=== PATIENT | female | born 1960 | race Caucasian/White ===

== ENCOUNTER 2016-05-19 11:27 | Inpatient (IN) | payer BC, OTHER ==
[2016-05-19 11:43] VITALS: BMI 24.1
--- NOTE | 2016-05-19 12:29 | PDOC ---
History of Present Illness - General History Source: Patient Exam Limitations: No Limitations - History of Present Illness Initial Comments: 05/19/16 14:39 The patient is a 56 year old female presenting with her son, with a significant past medical history of COPD and CHF s/p CABG, who presents to the emergency department with shortness of breath, cough and bilateral ankle edema. She notes that she recently had a CABG. She reports that she has a history of lower extremity swelling and the last time she came to the ED for lower extremity swelling was more severe than her current state. The patient denies chest pain, headache and dizziness. Denies fever, chills, nausea, vomit, diarrhea and constipation. Denies dysuria, frequency, urgency and hematuria. Allergies: Penicillin Past surgical history: CABG Social history: No alcohol, tobacco or drug use reported PMD - Dr. Sandi Mendez Disability Counselor - Dr. Fernández <Aiden Romo - Last Filed: 05/19/16 14:39> <Lottie Trimble - Last Filed: 05/19/16 15:49> - General Chief Complaint: Shortness of Breath Stated Complaint: SOB Time Seen by Provider: 05/19/16 12:10 Past History <Aiden Romo - Last Filed: 05/19/16 14:39> - Past Medical History COPD: Yes - Surgical History Cardiac Surgery: Yes (BYPASS) - Immunization History Immunization Up to Date: No - Psycho/Social/Smoking Cessation Hx Anxiety: No Suicidal Ideation: No Smoking Status: No Smoking History: Former smoker Have you smoked in the past 12 months: No Number of Cigarettes Smoked Daily: 0 Information on smoking cessation initiated: No Hx Alcohol Use: No Drug/Substance Use Hx: No Substance Use Type: Alcohol Hx Substance Use Treatment: No <Lottie Trimble - Last Filed: 05/19/16 15:49> - Past Medical History Allergies/Adverse Reactions: Allergies Allergy/AdvReac Type Severity Reaction Status Date / Time Penicillins Allergy Verified 05/19/16 11:43 Home Medications: Ambulatory Orders Glimepiride [Amaryl -] 1 mg PO DAILY 05/19/16 Review of Systems - Review of Systems Able to Perform ROS?: Yes Comments:: 05/19/16 14:45 GENERAL/CONSTITUTIONAL: No fever or chills. No weakness. HEAD, EYES, EARS, NOSE AND THROAT: No change in vision. No ear pain or discharge. No sore throat. CARDIOVASCULAR: +Shortness of breath. No chest pain RESPIRATORY: +Cough. No wheezing, or hemoptysis. GASTROINTESTINAL: No nausea, vomiting, diarrhea or constipation. GENITOURINARY: No dysuria, frequency, or change in urination. EXTREMITIES: +Bilateral lower extremity swelling. MUSCULOSKELETAL: No joint or muscle swelling or pain. No neck or back pain. SKIN: No rash NEUROLOGIC: No headache, vertigo, loss of consciousness, or change in strength/ sensation. ENDOCRINE: No increased thirst. No abnormal weight change HEMATOLOGIC/LYMPHATIC: No anemia, easy bleeding, or history of blood clots. ALLERGIC/IMMUNOLOGIC: No hives or skin allergy. <Aiden Romo - Last Filed: 05/19/16 14:39> *Physical Exam - Vital Signs Last Vital Signs Temp Pulse Resp BP Pulse Ox 97.6 F 87 18 192/110 100 05/19/16 11:38 05/19/16 11:38 05/19/16 11:38 05/19/16 11:38 05/19/16 11:38 <Aiden Romo - Last Filed: 05/19/16 14:39> - Vital Signs Last Vital Signs Temp Pulse Resp BP Pulse Ox 97.6 F 87 18 192/110 100 05/19/16 11:38 05/19/16 11:38 05/19/16 11:38 05/19/16 11:38 05/19/16 11:38 - Physical Exam Comments: GENERAL: Awake, alert, and fully oriented, in no acute distress HEAD: No signs of trauma EYES: PERRLA, EOMI, sclera anicteric, conjunctiva clear ENT: Auricles normal inspection, hearing grossly normal, nares patent, oropharynx clear without exudates. Moist mucosa NECK: Normal ROM, supple, no lymphadenopathy, JVD, or masses LUNGS: Mild tachypnea. Breath sounds equal, clear to auscultation bilaterally. No wheezes, and no crackles HEART: Regular rate and rhythm, normal S1 and S2, no murmurs, rubs or gallops ABDOMEN: Soft, nontender, normoactive bowel sounds. No guarding, no rebound. No masses EXTREMITIES: Normal range of motion, 2+ pitting edema to feet B/L. No clubbing or cyanosis. No cords, erythema, or tenderness NEUROLOGICAL: Cranial nerves II through XII grossly intact. Normal speech, normal gait SKIN: Warm, Dry, normal turgor, no rashes or lesions noted. <Lottie Trimble - Last Filed: 05/19/16 15:49> ED Treatment Course - LABORATORY CBC & Chemistry Diagram: 05/19/16 12:54 05/19/16 12:54 - ADDITIONAL ORDERS Additional order review: Laboratory Results 05/19/16 12:54 Sodium 140 Potassium 4.2 Chloride 107 Carbon Dioxide 25 Anion Gap 8 BUN 34 H Creatinine 1.9 H D Creat Clearance w eGFR 27.34 Random Glucose 385 H* D Calcium 8.4 L Total Bilirubin 0.5 AST 14 L ALT 27 Alkaline Phosphatase 114 D Creatine Kinase 73 Troponin I 0.04 B-Natriuretic Peptide 79719.26 H Total Protein 5.9 L Albumin 3.1 L 05/19/16 12:54 RBC 3.58 L MCV 86.6 MCHC 32.7 RDW 14.9 D MPV 9.1 Neutrophils % 75.3 D Lymphocytes % 16.8 D Monocytes % 5.4 Eosinophils % 1.7 Basophils % 0.8 - RADIOLOGY Radiograph Interpretation: 05/19/16 14:17 Chest X-Ray Reviewed by: Dr. Jhon Bernal Impression: Large heart, with sternal sutures and clips, congestive changes and bilateral effusions with an element of atelectasis or infiltrate at the left base. Since prior study the right base is better aerated. The left base is have developed. <Aiden Romo - Last Filed: 05/19/16 14:39> - LABORATORY CBC & Chemistry Diagram: 05/19/16 12:54 05/19/16 12:54 <Lottie Trimble - Last Filed: 05/19/16 15:49> Medical Decision Making - Medical Decision Making 05/19/16 14:12 Dr. Sheehan was called regarding the patient at 2:12pm Dr. Sheehan was consulted regarding the patient at 2:14pm [phone] <Aiden Romo - Last Filed: 05/19/16 14:39> - Medical Decision Making Case discussed with Dr. Sheehan. Recommended admission given patient's past history. <Lottie Trimble - Last Filed: 05/19/16 15:49> *DC/Admit/Observation/Transfer - Attestations Scribe Attestion: 05/19/16 14:39 Documentation prepared by Aiden Romo, acting as biomedical engineering aide for Lottie Trimble MD. <Aiden Romo - Last Filed: 05/19/16 14:39> - Discharge Dispostion Admit: Yes <Lottie Trimble - Last Filed: 05/19/16 15:49> Diagnosis at time of Disposition: CHF (congestive heart failure) Qualifiers: Congestive heart failure type: unspecified congestive heart failure type Congestive heart failure chronicity: acute on chronic Qualified Code(s): I50.9 - Heart failure, unspecified - Discharge Dispostion Condition at time of disposition: Stable - Referrals Referrals: Sandi Mendez MD [Primary Care Provider] -
[2016-05-19 13:01] LABS: BASOPHIL 0.8 % (0-2.0); EOSINOPHIL 1.7 % (0-4.5); MCH 28.3 pg (25.7-33.7); MCHC 32.7 g/dl (32.0-36.0); MEAN CELL VOLUME 86.6 fl (80-96); MEAN PLT VOLUME 9.1 fl (7.5-11.1); NEUTROPHILS 75.3 % (42.8-82.8); PLATELET COUNT 212 K/MM3 (134-434); RDW 14.9 % (11.6-15.6); WHITE BLOOD COUNT 10.5 K/mm3 (4.0-10.0)
[2016-05-19 13:29] LABS: ALBUMIN 3.1 g/dl (3.4-5.0); BILIRUBIN,TOTAL 0.5 mg/dL (0.2-1.0); CALCIUM 8.4 mg/dL (8.5-10.1); CREATININE 1.9 mg/dL (0.55-1.02); TOT PROT 5.9 g/dl (6.4-8.2)
[2016-05-19 13:32] LABS: TROPONIN I 0.04 ng/ml (0.00-0.05)
[2016-05-19] MEDS ORDERED: INSULIN REGULAR HUMAN 100 UNITS/ML *VIAL SQ ONE (14:58)
[2016-05-19] MEDS ORDERED: FUROSEMIDE 40 MG/4 ML INJECTABLE VIAL IVPUSH ONE (15:01)
[2016-05-19] MEDS ORDERED: FUROSEMIDE 40 MG/4 ML INJECTABLE VIAL ONE (15:06)
[2016-05-19] MEDS ORDERED: INSULIN REGULAR HUMAN 100 UNITS/ML *VIAL ONE (15:07)
--- NOTE | 2016-05-19 15:39 | HP ---
CHIEF COMPLAINT: PMD - Dr. Sandi Mendez Furniture Removalist - Dr. Fernández HISTORY OF PRESENT ILLNESS: Patient is a 56 year old female with PMHx of COPD and CHF s/p CABG x (4 vessels ) recently who presents to the emergency department with shortness of breath, cough and bilateral ankle edema. Also c/o having cold like symptoms; runny nose , head congestion, and soar throat. Patient states that she cannot take B-Blockers will make her dizzy and will become hypotensive. Denies any chest pain or palpitations but has mild shortness of breath, no fever or chills, no nausea or vomiting. Also states that her sugar is not controlled, and was on Metformin and was discontinued due to causing pulmonary edema. The patient denies chest pain, headache and dizziness. Denies fever, chills, nausea, vomit, diarrhea and constipation. Denies dysuria, frequency, urgency and hematuria. Allergies: Penicillin Past surgical history: CABG Social history: No alcohol, tobacco or drug use reported, id , has adult children Allergies Penicillins Allergy (Verified 05/19/16 11:43) HOME MEDICATIONS: Medication Instructions Recorded Glimepiride [Amaryl -] 1 mg PO DAILY 05/19/16 REVIEW OF SYSTEMS CONSTITUTIONAL: Absent: fever, chills, diaphoresis, generalized weakness, malaise, loss of appetite, weight change HEENT: POsitive: rhinorrhea, nasal congestion, throat pain. Absent: throat swelling, difficulty swallowing, mouth swelling, ear pain, eye pain, visual changes CARDIOVASCULAR: positive :peripheral edema.Absent:, chest pain, syncope, palpitations, irregular heart rate, lightheadedness, RESPIRATORY: positive for cough, shortness of breath, dyspnea with exertion. Absent: orthopnea, wheezing, stridor, hemoptysis GASTROINTESTINAL:Absent: abdominal pain, abdominal distension, nausea, vomiting , diarrhea, constipation, melena, hematochezia GENITOURINARY: Absent: dysuria, frequency, urgency, hesitancy, hematuria, flank pain, genital pain MUSCULOSKELETAL: Absent: myalgia, arthralgia, joint swelling, back pain, neck pain SKIN: Absent: rash, itching, pallor HEMATOLOGIC/IMMUNOLOGIC: Absent: easy bleeding, easy bruising, lymphadenopathy, frequent infections ENDOCRINE:Absent: unexplained weight gain, unexplained weight loss, heat intolerance, cold intolerance NEUROLOGIC: Absent: headache, focal weakness or paresthesias, dizziness, unsteady gait, seizure, mental status changes, bladder or bowel incontinence PSYCHIATRIC: Absent: anxiety, depression, suicidal or homicidal ideation, hallucinations. PHYSICAL EXAMINATION Vital Signs - 24 hr 05/19/16 11:38 Temperature 97.6 F Pulse Rate 87 Respiratory 18 Rate Blood Pressure 192/110 O2 Sat by Pulse 100 Oximetry (%) GENERAL: Awake, alert, and fully oriented, in no acute distress. HEAD: Normal with no signs of trauma. EYES: Pupils equal, round and reactive to light, extraocular movements intact, sclera anicteric, conjunctiva clear. No lid lag. EARS, NOSE, THROAT: Ears normal, nares patent, oropharynx clear without exudates. Moist mucous membranes. NECK: Normal range of motion, supple without lymphadenopathy, JVD, or masses. LUNGS: Breath sounds equal, clear to auscultation bilaterally. No wheezes, and no crackles. No accessory muscle use. HEART: Regular rate and rhythm, normal S1 and S2 , MING 2/6 , rub or gallop. ABDOMEN: Soft, nontender, not distended, normoactive bowel sounds, no guarding, no rebound, no masses. No hepatomegaly or splenomegaly. MUSCULOSKELETAL: Normal range of motion at all joints. No bony deformities or tenderness. No CVA tenderness. EXTREMITIES: 2+ pulses, warm, well-perfused. No calf tenderness. positive edema LE b/l NEUROLOGICAL: Cranial nerves II-XII intact. Normal speech. Normal gait. PSYCHIATRIC: Cooperative. Good eye contact. Appropriate mood and affect. SKIN: Warm, dry, normal turgor, no rashes or lesions noted. Laboratory Results - last 24 hr 05/19/16 05/19/16 12:54 12:54 WBC 10.5 H RBC 3.58 L Hgb 10.1 L D Hct 31.0 L MCV 86.6 MCHC 32.7 RDW 14.9 D Plt Count 212 D MPV 9.1 Neutrophils % 75.3 D Lymphocytes % 16.8 D Monocytes % 5.4 Eosinophils % 1.7 Basophils % 0.8 Sodium 140 Potassium 4.2 Chloride 107 Carbon Dioxide 25 Anion Gap 8 BUN 34 H Creatinine 1.9 H D Creat Clearance w eGFR 27.34 Random Glucose 385 H* D Calcium 8.4 L Total Bilirubin 0.5 AST 14 L ALT 27 Alkaline Phosphatase 114 D Creatine Kinase 73 Troponin I 0.04 B-Natriuretic Peptide 26633.26 H Total Protein 5.9 L Albumin 3.1 L Chest X-Ray Impression: Large heart, with sternal sutures and clips, congestive changes and bilateral effusions with an element of atelectasis or infiltrate at the left base. Since prior study the right base is better aerated. The left base is have developed. ASSESSMENT/PLAN: Patient is a 56 year old female with PMHx of COPD and CHF s/p CABG x (4 vessels ) recently , who presents to the emergency department with shortness of breath, cough and bilateral ankle edema. # Acute Congestive heart failure r/o acs with 4 vessel disease s/p Cabg, will get echo r/o LV dysfunction assess her valvular status and EJF CE q8x2 more set, ekg in am, Lasix 20mg bid IV .Cardiology consult in am . is notified. Is and Os, weigh daily # LE edema on diuretic gently , will check TSH ,FT4. # ARF will monitor closely, on consult. Kidney US # T2DM uncontrolled accu check with sliding scale q4hr with coverage # c/o Sore throat; ordered influenza on her , negative throat exam and ear exam DVT Px:heparin Problem List - Problem (1) CHF (congestive heart failure) Code(s): I50.9 - HEART FAILURE, UNSPECIFIED Qualifiers: Congestive heart failure type: unspecified congestive heart failure type Congestive heart failure chronicity: acute on chronic Qualified Code(s ): I50.9 - Heart failure, unspecified (2) Diabetes mellitus, insulin dependent (IDDM), uncontrolled Code(s): E10.65 - TYPE 1 DIABETES MELLITUS WITH HYPERGLYCEMIA (3) Dyspnea Code(s): R06.00 - DYSPNEA, UNSPECIFIED (4) Acute renal failure Code(s): N17.9 - ACUTE KIDNEY FAILURE, UNSPECIFIED Visit type - Emergency Visit Emergency Visit: Yes ED Registration Date: 05/19/16 Care time: The patient presented to the Emergency Department on the above date and was hospitalized for further evaluation of their emergent condition. - New Patient This patient is new to me today: Yes Date on this admission: 05/19/16 - Critical Care Critical Care patient: No
[2016-05-19] MEDS ORDERED: INSULIN (NOVOLOG) ASPART 100 UNITS/ML 10ML VIAL ONE (18:13)
[2016-05-19] MEDS: INSULIN SLIDING SCALE (NOVOLOG) 1 VIAL SQ SCH ×2 (18:14→21:15)
[2016-05-19] MEDS ORDERED: hydrALAZINE HCL 20 MG/ML VIAL IVPUSH PRN (19:23)
[2016-05-19] MEDS: HEPARIN NA (PORCINE) 5,000 UNITS/ML 1ML VIAL SQ SCH (22:02)
[2016-05-20] MEDS: INSULIN SLIDING SCALE (NOVOLOG) 1 VIAL SQ SCH ×3 (01:00→17:38)
[2016-05-20] MEDS: HEPARIN NA (PORCINE) 5,000 UNITS/ML 1ML VIAL SQ SCH ×2 (06:00→21:19)
[2016-05-20] MEDS: FUROSEMIDE 40 MG/4 ML INJECTABLE VIAL IVPUSH SCH ×2 (06:00→14:45)
[2016-05-20 07:33] LABS: BASOPHIL 1.2 % (0-2.0); EOSINOPHIL 2.2 % (0-4.5); MCH 28.5 pg (25.7-33.7); MCHC 33.2 g/dl (32.0-36.0); MEAN CELL VOLUME 85.8 fl (80-96); MEAN PLT VOLUME 9.2 fl (7.5-11.1); PLATELET COUNT 220 K/MM3 (134-434); RDW 14.9 % (11.6-15.6); WHITE BLOOD COUNT 10.5 K/mm3 (4.0-10.0)
[2016-05-20 07:36] LABS: INR 1.12 (0.82-1.09); PROTHROMBIN TIME (PATIENT) 12.3 SEC (9.98-11.88)
[2016-05-20 08:06] LABS: ALBUMIN 3.1 g/dl (3.4-5.0); CALCIUM 8.4 mg/dL (8.5-10.1); MAGNESIUM 1.6 mg/dL (1.8-2.4)
[2016-05-20 08:14] LABS: BILIRUBIN,TOTAL 0.6 mg/dL (0.2-1.0); CREATININE 1.9 mg/dL (0.55-1.02); PHOSPHOROUS 3.5 mg/dL (2.5-4.9); THYROID STIMULATING HORMONE 2.7 uIU/ml (0.358-3.74); TOT PROT 5.6 g/dl (6.4-8.2); TROPONIN I 0.05 ng/ml (0.00-0.05)
[2016-05-20 08:57] LABS: FREE T4 1.98 ng/dl (0.76-1.46)
--- NOTE | 2016-05-20 09:46 | EKG ---
Test Reason : Blood Pressure : / mmHG Vent. Rate : 086 BPM Atrial Rate : 086 BPM P-R Int : 150 ms QRS Dur : 102 ms QT Int : 414 ms P-R-T Axes : 057 007 144 degrees QTc Int : 495 ms NORMAL SINUS RHYTHM POSSIBLE LEFT ATRIAL ENLARGEMENT INFERIOR INFARCT (CITED ON OR BEFORE 08-FEB-2015) ST ABNORMAL ECG WHEN COMPARED WITH ECG OF 08-FEB-2015 01:08, FUSION COMPLEXES ARE NO LONGER PRESENT T WAVE VARIATION Confirmed by MANDO BOWERS MD ([id number]) on 05/20/2016 9:45:51 AM Referred By: Overread By: MANDO BOWERS MD
--- NOTE | 2016-05-20 09:48 | EKG ---
Test Reason : Blood Pressure : / mmHG Vent. Rate : 084 BPM Atrial Rate : 084 BPM P-R Int : 152 ms QRS Dur : 104 ms QT Int : 418 ms P-R-T Axes : 063 011 143 degrees QTc Int : 493 ms NORMAL SINUS RHYTHM POSSIBLE LEFT ATRIAL ENLARGEMENT LEFT VENTRICULAR HYPERTROPHY INFERIOR INFARCT (CITED ON OR BEFORE 08-FEB-2015) ST ABNORMAL ECG WHEN COMPARED WITH ECG OF 19-MAY-2016 11:44, NO SIGNIFICANT CHANGE WAS FOUND Confirmed by MANDO BOWERS MD ([id number]) on 05/20/2016 9:47:53 AM Referred By: Overread By: MANDO BOWERS MD
--- NOTE | 2016-05-20 09:50 | PN ---
Progress Note (short form) - Note Progress Note: Chief Complaint: Events noted, notes reviewed, dyspnea with increasing bilateral lower extremity edema, denies chest pain History of Present Illness: Seen and examined on telemetry. Full consult dictated Medications: Current Medications Furosemide (Lasix Injection -) 20 mg IVPUSH BID@0600,1400 [facility] Last Admin: 05/20/16 06:00 Dose: 20 mg Heparin Sodium (Porcine) (Heparin -) 5,000 unit SQ TID [facility] Last Admin: 05/20/16 06:00 Dose: 5,000 unit Hydralazine HCl (Apresoline Injection -) 10 mg IVPUSH Q8H PRN PRN Reason: HYPERTENSION Insulin Aspart (Novolog Vial Sliding Scale -) 1 vial SQ ACHS [facility] PRN Reason: Protocol Review of Systems - Review of Systems Constitutional: no symptoms reported Respiratory: denies Cough and Sputum Production Cardiovascular: as noted above Gastrointestinal: denies Nausea, Vomiting, Diarrhea, Constipation or Abdominal Pain Genitourinary: no symptoms reported Musculoskeletal: no symptoms reported Endocrine: no symptoms reported Vital Signs: Last Vital Signs Temp Pulse Resp BP Pulse Ox 98.1 F 87 20 166/98 99 05/20/16 08:05 05/20/16 08:05 05/20/16 08:05 05/20/16 08:05 05/19/16 20:11 Constitutional: No Distress, Calm Neck: Supple Positive JVD Respiratory: Clear to A&P Bilaterally Cardiovascular: S1 S2 Regular Rate Rhythm Grade 2/6 SM S3 Gallop Gastrointestinal: Soft Benign Normal Bowel Sounds Ext: Trace Edema Labs: Troponin, BNP 05/19/16 05/20/16 12:54 05:35 Troponin I 0.04 0.05 B-Natriuretic Peptide 04906.26 H CBC, BMP 05/20/16 05:35 05/20/16 05:35 Hepatic Panel Total Bilirubin 0.6 mg/dL (0.2-1.0) 05/20/16 05:35 AST 16 U/L (15-37) 05/20/16 05:35 ALT 24 U/L (12-78) 05/20/16 05:35 Alkaline Phosphatase 96 U/L (45-117) 05/20/16 05:35 Albumin 3.1 g/dl (3.4-5.0) L 05/20/16 05:35 INR, PTT INR 1.12 (0.82-1.09) 05/20/16 05:35 Assessment/Plan ASSESSMENT: 1. Acute on chronic LV systolic failure, dilated ischemic cardiomyopathy with class III-IV NYHA classification LV failure 2. CAD post CABG angina pectoris 3. MR 4. sternal wound infection 5. HTN, not at goal 6. Insulin-dependent diabetes mellitus 7. Hypercholesterolemia 8. CKD PLAN: 1. Continue IV Lasix 2. Attempt Bystolic with caution, patient has intolerance to Coreg, Lopressor and Toprl XL therapies 3. Ideally recommend the addition of ACEI or ARBS with caution considering the above noted CKD 4. Resume statin therapy 5. Echocardiography to evalaute LV function and size and MV pathology Haresh Fontanez M.D.
[2016-05-20] MEDS ORDERED: NEBIVOLOL 2.5 MG TABLET (FP) PO SCH (10:00)
[2016-05-20] MEDS: VALSARTAN 40 MG TABLET (FP) PO SCH (10:14)
[2016-05-20] MEDS: ASPIRIN COATED 81 MG TABLET.EC PO SCH (10:14)
[2016-05-20] MEDS ORDERED: INSULIN SLIDING SCALE (NOVOLOG) 1 VIAL SQ SCH (11:00)
--- NOTE | 2016-05-20 11:00 | CONS ---
DATE OF CONSULTATION: 05/20/2016 REQUESTING PHYSICIAN: Hospitalist. CHIEF COMPLAINT: Dyspnea, orthopnea, increasing bilateral lower extremity edema. HISTORY OF PRESENT ILLNESS: This 56-year-old female known to our service with known history of coronary artery disease status post coronary artery bypass grafting, angina pectoris, systolic left ventricular dysfunction with chronic class 1-2 [place] [employer] Classification left ventricular failure related to ischemic dilated cardiomyopathy, insulin-dependent diabetes mellitus, hypercholesterolemia, poor compliance with medical followup, who presented to [facility] with increasing dyspnea, which has been progressive over the last several days. Patient in addition reported increasing bilateral lower extremity edema. Dyspnea initially was noted with mild to moderate physical exertion, subsequently was noted with minimal physical activity. Patient reported in addition orthopnea, but denied any paroxysmal nocturnal dyspnea. Patient denied any chest discomfort. Patient reported intermittent bilateral lower extremity edema. Initially, that was noted in the latter part of the day and subsequently it was noted throughout the whole day. Patient admitted poor compliance with medical followup. Patient, in addition, has been on no cardiovascular medications related to prior intolerances. PAST MEDICAL HISTORY: Coronary artery disease, status post coronary artery bypass grafting, angina pectoris, the above noted surgical procedure was complicated by sternal wound infection requiring reintervention, ischemic dilated cardiomyopathy with chronic class 1-2 [place] [employer] Classification left ventricular failure, insulin-dependent diabetes mellitus, hypercholesterolemia, chronic kidney disease. SOCIAL HISTORY: Prior history of tobacco abuse. FAMILY HISTORY: Positive for coronary artery disease. ALLERGIES: To PENICILLIN. MEDICAL THERAPY: Currently includes: 1. Lasix 20 mg IV push twice a day. 2. Subcutaneous heparin 5000 units 3 times a day. 3. Hydralazine 10 mg IV push q.8 hours as needed. 4. Insulin as prescribed. REVIEW OF SYSTEMS: Head and neck: Denies headache, photophobia, blurring of vision. Respiratory: No cough or sputum production. Cardiovascular: As noted above. Gastrointestinal: Denies nausea, vomiting, diarrhea, abdominal discomfort. Genitourinary: No symptoms reported. Musculoskeletal: No symptoms reported. PHYSICAL EXAMINATION: Vital signs: Blood pressure is 166/98 mmHg, pulse rate is 87 beats per minute regular. Head and neck: Pupils are equally reactive to light and accommodation. Extraocular muscles are intact. Anicteric sclerae. Positive JVD. No bruit appreciated. Chest: Diminished breath sounds at the bases bilaterally. Cardiovascular: S1, S2 regular. Grade 2/6 systolic apical murmur. No gallops. Abdomen: Soft, benign. Normoactive bowel sounds. Extremities: Trace edema. Intact distal pulses. No calf tenderness. STUDIES: Electrocardiogram reveals sinus rhythm with poor R-wave progression and ST-T-wave abnormality suggestive of ischemia. Chest x-ray report was noted. CBC revealed a white cell count of 10.5, hemoglobin 9.7, platelet count 220. INR was 1.12. Basic metabolic profile revealed a sodium of 143, potassium 3.5, BUN of 34, creatinine 1.9, estimated GFR of 27.34, glucose 116, hemoglobin A1c 10.2, cholesterol 213, LDL 147, triglyceride 173, HDL 54, TSH 2.70. ASSESSMENT: 1. Clinical presentation is consistent with acute on chronic left ventricular systolic failure in a patient with known history of dilated ischemic cardiomyopathy, class 3-4 [place] [employer] Classification left ventricular failure. 2. Coronary artery disease, status post coronary artery bypass grafting, angina pectoris. 3. Mitral valve disease, mitral valve regurgitation. 4. Sternal wound infection requiring intervention. 5. Hypertensive cardiovascular disease. 6. Insulin-dependent diabetes mellitus. 7. Hypercholesterolemia. 8. Chronic kidney disease. RECOMMENDATION: 1. Continuation of IV Lasix. 2. Attempt Bystolic therapy with caution. Patient has intolerances to COREG, LOPRESSOR, and TOPROL XL therapy administration. 3. Ideally, recommend addition of BO inhibitors or angiotensin receptor blockers with caution considering the above noted chronic kidney disease. 4. Resumption of statin therapy. 5. Echocardiography to evaluate left ventricular size and function and the above noted mitral valve pathology. 6. Patient was strongly counseled importance of compliance to therapy administration and regular followup. Thank you for the kind referral. LUIS EDUARDO BEEBE M.D. [id number] MTDTrent
[2016-05-20 12:12] LABS: TROPONIN I 0.06 ng/ml (0.00-0.05)
--- NOTE | 2016-05-20 16:31 | PN ---
Teaching Attending Note Name of Resident: Tod Anders ATTENDING PHYSICIAN STATEMENT I saw and evaluated the patient. I reviewed the resident's note and discussed the case with the resident. I agree with the resident's findings and plan as documented. SUBJECTIVE: no fever or chills , no abd pain , no palpitations . SOB is better . LE edema is better OBJECTIVE: NAD , AAOx3 CV: RRR , no MRG . minimal JVD Lungs : minimal basilar crackles Ext: trace pitting edema Abd: soft, NT, ND ASSESSMENT AND PLAN: 56 y/o lady with h/o DM , poor compliance , CAD s/p CABG 1 yr ago, S CHF, and COPD who presented with SOB. 1- Acute S CHF : due to not taking lasix at home. and non compliance with meds - responded to 20 of IV lasix. will cont current dose - I&O and daily weight - started on Bystolic with caution - ARB with caution given her enal function ( could be CKD though ) - echo reviewed. 2- DM : uncontrolled. A1c of 10.3. - increase home amaryl to 3 mg daily - needs another agent . will start januvia at dc 3- YVES , vs CKD : likely CKD check urine electrolytes . Feurea monitor renal function 4- HL: LDL above goal of 70 . started statin dispo : HLOC
[2016-05-20] MEDS ORDERED: MAGNESIUM SULF 50% (8.12 MEQ/2 ML-1 GM VIAL) IVPB ONE (17:26)
--- NOTE | 2016-05-20 17:28 | PN ---
Physical Exam: SUBJECTIVE: Patient seen and examined Pt feeling better, no chest pain, palpitation sob on exertion, no more sob at rest C/o restless leg OBJECTIVE: Vital Signs Period Temp Pulse Resp BP Sys/Horowitz Pulse Ox Last 24 Hr 97.8 F-98.2 F 80-87 18-22 138-192/72-100 97-99 GENERAL: The patient is awake, alert, and fully oriented, in no acute distress. HEAD: Normal with no signs of trauma. EYES: PERRL, extraocular movements intact, sclera anicteric, conjunctiva clear. No ptosis. ENT: Ears normal, nares patent, oropharynx clear without exudates, moist mucous membranes. NECK: Trachea midline, full range of motion, supple. LUNGS: Breath sounds equal, clear to auscultation bilaterally with crackle in b/ l bases , no wheezes, , no accessory muscle use. HEART: Regular rate and rhythm, S1, S2 without murmur, rub or gallop. ABDOMEN: Soft, nontender, nondistended, normoactive bowel sounds, no guarding, no rebound, no hepatosplenomegaly, no masses. EXTREMITIES: 2+ pulses, warm, well-perfused. +1 edema in b/l lower ext. NEUROLOGICAL:. Normal speech, gait not observed. PSYCH: Normal mood, normal affect. SKIN: Warm, dry, normal turgor, no rashes or lesions noted Laboratory Results - last 24 hr 05/19/16 05/19/16 05/20/16 18:10 21:46 00:58 WBC RBC Hgb Hct MCV MCHC RDW Plt Count MPV Neutrophils % Lymphocytes % Monocytes % Eosinophils % Basophils % INR Sodium Potassium Chloride Carbon Dioxide Anion Gap BUN Creatinine Creat Clearance w eGFR POC Glucometer [phone] 98 176 Random Glucose Hemoglobin A1c % Calcium Phosphorus Magnesium Total Bilirubin AST ALT Alkaline Phosphatase Creatine Kinase Troponin I Total Protein Albumin Triglycerides Cholesterol Total LDL Cholesterol HDL Cholesterol TSH Free T4 05/20/16 05/20/16 05/20/16 05:35 05:35 05:35 WBC 10.5 H RBC 3.41 L Hgb 9.7 L Hct 29.3 L MCV 85.8 MCHC 33.2 RDW 14.9 Plt Count 220 MPV 9.2 Neutrophils % 68.0 Lymphocytes % 23.3 D Monocytes % 5.3 Eosinophils % 2.2 Basophils % 1.2 INR 1.12 Sodium 143 Potassium 3.5 Chloride 106 Carbon Dioxide 26 Anion Gap 11 BUN 34 H Creatinine 1.9 H Creat Clearance w eGFR 27.34 POC Glucometer Random Glucose 116 H D Hemoglobin A1c % Calcium 8.4 L Phosphorus 3.5 Magnesium 1.6 L D Total Bilirubin 0.6 AST 16 ALT 24 Alkaline Phosphatase 96 Creatine Kinase 102 Troponin I 0.05 Total Protein 5.6 L Albumin 3.1 L Triglycerides 173 H D Cholesterol 213 H D Total LDL Cholesterol 147 H HDL Cholesterol 54 TSH 2.70 D Free T4 1.98 H 05/20/16 05/20/16 05/20/16 05:35 05:35 05:51 WBC RBC Hgb Hct MCV MCHC RDW Plt Count MPV Neutrophils % Lymphocytes % Monocytes % Eosinophils % Basophils % INR Sodium Potassium Chloride Carbon Dioxide Anion Gap BUN Creatinine Creat Clearance w eGFR POC Glucometer 127 Random Glucose Hemoglobin A1c % 10.2 H D Calcium Phosphorus Magnesium Total Bilirubin AST ALT Alkaline Phosphatase Creatine Kinase Troponin I Total Protein Albumin Triglycerides Cholesterol Total LDL Cholesterol HDL Cholesterol TSH Free T4 Cancelled 05/20/16 05/20/16 05/20/16 11:42 11:42 15:59 WBC RBC Hgb Hct MCV MCHC RDW Plt Count MPV Neutrophils % Lymphocytes % Monocytes % Eosinophils % Basophils % INR Sodium Potassium Chloride Carbon Dioxide Anion Gap BUN Creatinine Creat Clearance w eGFR POC Glucometer 227 296 Random Glucose Hemoglobin A1c % Calcium Phosphorus Magnesium Total Bilirubin AST ALT Alkaline Phosphatase Creatine Kinase 106 Troponin I 0.06 H Total Protein Albumin Triglycerides Cholesterol Total LDL Cholesterol HDL Cholesterol TSH Free T4 Active Medications Generic Name Dose Route Start Last Admin Trade Name Freq PRN Reason Stop Dose Admin Aspirin 81 mg 05/20/16 10:00 05/20/16 10:14 Ecotrin - PO 81 mg DAILY [facility] Administration Furosemide 20 mg 05/20/16 06:00 05/20/16 14:45 Lasix Injection - IVPUSH 20 mg BID@0600,1400 [facility] Administration Glimepiride 3 mg 05/21/16 07:00 Amaryl - PO DAILY@0700 [facility] Insulin Aspart 1 vial 05/20/16 16:30 Novolog Vial Sliding Scale - SQ TIDAC [facility] Protocol Magnesium Sulfate 2 gm 05/20/16 17:26 Magnesium Sulfate IVPB 05/20/16 17:27 ONCE ONE Nebivolol 2.5 mg 05/20/16 10:00 05/20/16 11:44 Bystolic - PO 2.5 mg DAILY [facility] Administration Rosuvastatin Calcium 20 mg 05/20/16 22:00 Crestor - PO HS [facility] Valsartan 40 mg 05/20/16 10:00 05/20/16 10:14 Diovan - PO 40 mg DAILY [facility] Administration CBC, BMP 05/20/16 05:35 05/20/16 05:35 Laboratory Tests 05/20/16 05/20/16 05/20/16 05:35 05:35 11:42 INR 1.12 Calcium 8.4 L Phosphorus 3.5 Magnesium 1.6 L D Troponin I 0.06 H Albumin 3.1 L Total LDL Cholesterol 147 H HDL Cholesterol 54 TSH 2.70 D Free T4 1.98 H 05/20/16 05:35 Hemoglobin A1c % 10.2 H D CXR: Since the prior study of 02/09/2015, again is a large heart with sternal sutures and clips, congestive changes and bilateral effusions with an element of atelectasis or infiltrate at the left base. Since the prior study the right base is better aerated. The left base is have developed. 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 manager Daily weight accurate Intake and output Acute renal failure rt CHF Creatinine baseline 1 today Cr was 1.9 US renal pending Renal consult Urine electrolytes, Na, Cr, Urea Uncontrolled diabetes HCG 10.2 increased Glimeperide to 3mg PO qd Will need to add JAnuvia on discharge Unable to use metformin rt CHF, YVES, prior adverse h/o with metformin BGM Novolg sliding scale Restless leg Iron studies in am FEN Fluid : none Electrolytes: repeat chemistries in am Nutrition: diabetic diet DVT: Heparin sq Visit type - Emergency Visit Emergency Visit: Yes ED Registration Date: 05/19/16 Care time: The patient presented to the Emergency Department on the above date and was hospitalized for further evaluation of their emergent condition. - New Patient This patient is new to me today: Yes Date on this admission: 05/20/16 - Critical Care Critical Care patient: No
--- NOTE | 2016-05-20 18:19 | CONSULT ---
Consult Consult Specialty:: Nephrology Reason for Consultation:: YVES - History of Present Illness Chief Complaint: shortness of breath History of Present Illness: Pt is a 56 year old female with pmhx of CAD, DM, CHF, and COPD who presents to the ER with shortness of breath that has been getting worse over the last few weeks. She denies chest pain or palpitations. She was found to have elevated creatinine and I was called to evaluate her. She denies history of CKD. She denies dysuria or hematuria. She denies nsaid use. She does not take any diuretics. She admits that she has poor outpt follow up. 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 Home Medications - Allergies Allergies/Adverse Reactions: Allergies Allergy/AdvReac Type Severity Reaction Status Date / Time Penicillins Allergy Verified 05/19/16 11:43 - Home Medications Home Medications: Ambulatory Orders Glimepiride [Amaryl -] 1 mg PO DAILY 05/19/16 Family Disease History - Family Disease History Family Disease History: CA: Mother (colon cancer), Other: Father (copd), Sister (healthy and living), Son (healthy and living), Daughter (healthy and living) Review of Systems - Review of Systems Constitutional: reports: No Symptoms Eyes: reports: No Symptoms HENT: reports: No Symptoms Neck: reports: No Symptoms Cardiovascular: reports: Edema, Shortness of Breath Respiratory: reports: SOB, SOB on Exertion Gastrointestinal: reports: No Symptoms Genitourinary: reports: No Symptoms Musculoskeletal: reports: No Symptoms Integumentary: reports: No Symptoms Neurological: reports: No Symptoms Endocrine: reports: No Symptoms Hematology/Lymphatic: reports: No Symptoms Psychiatric: reports: No Symptoms Physical Exam Vital Signs: Vital Signs Temperature 97.9 F 05/20/16 16:00 Pulse Rate 82 05/20/16 16:00 Respiratory Rate 22 05/20/16 16:00 Blood Pressure 172/79 05/20/16 16:00 O2 Sat by Pulse Oximetry (%) 98 05/20/16 08:00 Constitutional: Yes: Calm Eyes: Yes: Conjunctiva Clear HENT: Yes: Atraumatic Cardiovascular: Yes: Murmur, S1, S2 Respiratory: Yes: CTA Bilaterally Gastrointestinal: Yes: Soft Renal/: Yes: WNL Musculoskeletal: Yes: WNL Edema: Yes Edema: LLE: Trace, RLE: Trace Neurological: Yes: Oriented Psychiatric: Yes: Oriented Labs: CBC, BMP 05/20/16 05:35 05/20/16 05:35 Laboratory Tests 02/11/15 02/12/15 05/19/16 08:00 05:00 12:54 WBC Hgb 10.1 L D Sodium Potassium Chloride Carbon Dioxide Anion Gap BUN Creatinine 1.2 1.1 Hemoglobin A1c % 05/19/16 05/20/16 05/20/16 12:54 05:35 05:35 WBC 10.5 H Hgb 9.7 L Sodium 143 Potassium 3.5 Chloride 106 Carbon Dioxide 26 Anion Gap 11 BUN 34 H Creatinine 1.9 H D 1.9 H Hemoglobin A1c % 05/20/16 05:35 WBC Hgb Sodium Potassium Chloride Carbon Dioxide Anion Gap BUN Creatinine Hemoglobin A1c % 10.2 H D Imaging - Results Chest X-ray: Report Reviewed (congestive changes) Problem List - Problems (1) Acute renal failure Code(s): N17.9 - ACUTE KIDNEY FAILURE, UNSPECIFIED (2) CHF (congestive heart failure) Code(s): I50.9 - HEART FAILURE, UNSPECIFIED Qualifiers: Congestive heart failure type: unspecified congestive heart failure type Congestive heart failure chronicity: acute on chronic Qualified Code(s ): I50.9 - Heart failure, unspecified (3) COPD exacerbation Code(s): J44.1 - CHRONIC OBSTRUCTIVE PULMONARY DISEASE W (ACUTE) EXACERBATION (4) Diabetes mellitus, insulin dependent (IDDM), uncontrolled Code(s): E10.65 - TYPE 1 DIABETES MELLITUS WITH HYPERGLYCEMIA (5) Dyspnea Code(s): R06.00 - DYSPNEA, UNSPECIFIED Assessment/Plan Current Medications Generic Name Dose Route Start Last Admin Trade Name Freq PRN Reason Stop Dose Admin Aspirin 81 mg 05/20/16 10:00 05/20/16 10:14 Ecotrin - PO 81 mg DAILY [facility] Administration Furosemide 20 mg 05/20/16 06:00 05/20/16 14:45 Lasix Injection - IVPUSH 20 mg BID@0600,1400 [facility] Administration Glimepiride 3 mg 05/21/16 07:00 Amaryl - PO DAILY@0700 [facility] Heparin Sodium (Porcine) 5,000 unit 05/20/16 22:00 Heparin - SQ BID [facility] Insulin Aspart 1 vial 05/20/16 16:30 05/20/16 17:38 Novolog Vial Sliding Scale - SQ 6 units TIDAC [facility] Administration Protocol Nebivolol 2.5 mg 05/20/16 10:00 05/20/16 11:44 Bystolic - PO 2.5 mg DAILY [facility] Administration Rosuvastatin Calcium 20 mg 05/20/16 22:00 Crestor - PO HS [facility] Valsartan 40 mg 05/20/16 10:00 05/20/16 10:14 Diovan - PO 40 mg DAILY [facility] Administration Impression 1. YVES 2. CHF acute systolic 3. DM 4. HTN 5. 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
[2016-05-20] MEDS: ROSUVASTATIN CA 20 MG TABLET (FP) PO SCH (21:19)
[2016-05-20 22:54] LABS: URINE APPEARANCE CLEAR; URINE BILIRUBIN NEGATIVE (NEGATIVE); URINE COLOR STRAW; URINE GLUCOSE (UA) 2+ (NEGATIVE); URINE KETONE NEGATIVE (NEGATIVE); URINE LEUK ESTERASE NEGATIVE (NEGATIVE); URINE NITRITE NEGATIVE (NEGATIVE); URINE UROBILINOGEN NEGATIVE E.U./dl (0.2-1.0)
[2016-05-20 23:00] LABS: URINE BLOOD 1+ (NEGATIVE); URINE PROTEIN 2+ (NEGATIVE)
[2016-05-20 23:02] LABS: URINE HYALINE CAST 3 /lpf; URINE MUCUS RARE; URINE RBC 6 /hpf (0-3); URINE WBC 7 /hpf (3-5)
[2016-05-20 23:21] LABS: URINE CREATININE 45.3 mg/dL
[2016-05-21] MEDS ORDERED: ACETAMINOPHEN 325 MG TABLET (FP) PO PRN (02:09)
[2016-05-21] MEDS: FUROSEMIDE 40 MG/4 ML INJECTABLE VIAL IVPUSH SCH (06:10)
[2016-05-21] MEDS: GLIMEPIRIDE 2 MG TABLET (FP) PO SCH (06:10)
[2016-05-21] MEDS: INSULIN SLIDING SCALE (NOVOLOG) 1 VIAL SQ SCH ×3 (06:11→17:00)
[2016-05-21 07:27] LABS: EOSINOPHIL 2.5 % (0-4.5); MCH 28.5 pg (25.7-33.7); MCHC 33.4 g/dl (32.0-36.0); MEAN CELL VOLUME 85.4 fl (80-96); NEUTROPHILS 67.4 % (42.8-82.8); PLATELET COUNT 211 K/MM3 (134-434); RDW 14.8 % (11.6-15.6); WHITE BLOOD COUNT 9.6 K/mm3 (4.0-10.0)
--- NOTE | 2016-05-21 08:19 | PN ---
Physical Exam: SUBJECTIVE: Patient seen and examined Pt is feeling weak today Did not sleep well last night Complained about continuous movement of her leg and sensation to walk and run No sob, no chest pain, no palpitation, no n/v. OBJECTIVE: Vital Signs Period Temp Pulse Resp BP Sys/Horowitz Pulse Ox Last 24 Hr 97.8 F-97.9 F 64-87 20-22 148-192/79-100 98 GENERAL: The patient is awake, alert, and fully oriented, in no acute distress. HEAD: Normal with no signs of trauma. EYES: PERRL, extraocular movements intact, sclera anicteric, conjunctiva clear. No ptosis. ENT: Ears normal, nares patent, oropharynx clear without exudates, moist mucous membranes. NECK: Trachea midline, full range of motion, supple. LUNGS: Breath sounds equal, clear to auscultation bilaterally with crackle in b/ l bases , no wheezes, , no accessory muscle use. HEART: Regular rate and rhythm, S1, S2 without murmur, rub or gallop. ABDOMEN: Soft, nontender, nondistended, normoactive bowel sounds, no guarding, no rebound, no hepatosplenomegaly, no masses. EXTREMITIES: 2+ pulses, warm, well-perfused. +1 edema in b/l lower ext. NEUROLOGICAL:. Normal speech, gait not observed. PSYCH: Normal mood, normal affect. SKIN: Warm, dry, normal turgor, no rashes or lesions noted Laboratory Results - last 24 hr 05/20/16 05/20/16 05/20/16 05:35 05:35 05:35 WBC RBC Hgb Hct MCV MCHC RDW Plt Count MPV Neutrophils % Lymphocytes % Monocytes % Eosinophils % Basophils % Sodium 143 Potassium 3.5 Chloride 106 Carbon Dioxide 26 Anion Gap 11 BUN 34 H Creatinine 1.9 H Creat Clearance w eGFR 27.34 POC Glucometer Random Glucose 116 H D Hemoglobin A1c % 10.2 H D Calcium 8.4 L Phosphorus 3.5 Magnesium 1.6 L D Total Bilirubin 0.6 AST 16 ALT 24 Alkaline Phosphatase 96 Creatine Kinase 102 Troponin I 0.05 Total Protein 5.6 L Albumin 3.1 L Triglycerides 173 H D Cholesterol 213 H D Total LDL Cholesterol 147 H HDL Cholesterol 54 TSH 2.70 D Free T4 1.98 H Cancelled Urine Color Urine Appearance Urine pH Ur Specific [place] Urine Protein Urine Glucose (UA) Urine Ketones Urine Blood Urine Nitrite Urine Bilirubin Urine Urobilinogen Ur Leukocyte Esterase Urine RBC Urine WBC Ur Epithelial Cells Hyaline Casts Urine Mucus U Random Total Protein Ur Random Sodium Ur Random Potassium Ur Random Chloride Ur Random Urea Nitrogn Urine Creatinine Protein/Creatinin Ratio 05/20/16 05/20/16 05/20/16 11:42 11:42 15:59 WBC RBC Hgb Hct MCV MCHC RDW Plt Count MPV Neutrophils % Lymphocytes % Monocytes % Eosinophils % Basophils % Sodium Potassium Chloride Carbon Dioxide Anion Gap BUN Creatinine Creat Clearance w eGFR POC Glucometer 227 296 Random Glucose Hemoglobin A1c % Calcium Phosphorus Magnesium Total Bilirubin AST ALT Alkaline Phosphatase Creatine Kinase 106 Troponin I 0.06 H Total Protein Albumin Triglycerides Cholesterol Total LDL Cholesterol HDL Cholesterol TSH Free T4 Urine Color Urine Appearance Urine pH Ur Specific [place] Urine Protein Urine Glucose (UA) Urine Ketones Urine Blood Urine Nitrite Urine Bilirubin Urine Urobilinogen Ur Leukocyte Esterase Urine RBC Urine WBC Ur Epithelial Cells Hyaline Casts Urine Mucus U Random Total Protein Ur Random Sodium Ur Random Potassium Ur Random Chloride Ur Random Urea Nitrogn Urine Creatinine Protein/Creatinin Ratio 05/20/16 05/20/16 05/20/16 21:30 21:30 21:30 WBC RBC Hgb Hct MCV MCHC RDW Plt Count MPV Neutrophils % Lymphocytes % Monocytes % Eosinophils % Basophils % Sodium Potassium Chloride Carbon Dioxide Anion Gap BUN Creatinine Creat Clearance w eGFR POC Glucometer Random Glucose Hemoglobin A1c % Calcium Phosphorus Magnesium Total Bilirubin AST ALT Alkaline Phosphatase Creatine Kinase Troponin I Total Protein Albumin Triglycerides Cholesterol Total LDL Cholesterol HDL Cholesterol TSH Free T4 Urine Color Urine Appearance Urine pH Ur Specific [place] Urine Protein Urine Glucose (UA) Urine Ketones Urine Blood Urine Nitrite Urine Bilirubin Urine Urobilinogen Ur Leukocyte Esterase Urine RBC Urine WBC Ur Epithelial Cells Hyaline Casts Urine Mucus U Random Total Protein 205 H Ur Random Sodium 97 Ur Random Potassium Ur Random Chloride Ur Random Urea Nitrogn 235 Urine Creatinine 45.3 Protein/Creatinin Ratio 4.52 05/20/16 05/20/16 05/21/16 21:30 21:30 05:35 WBC 9.6 RBC 3.29 L Hgb 9.4 L Hct 28.1 L MCV 85.4 MCHC 33.4 RDW 14.8 Plt Count 211 MPV 9.0 Neutrophils % 67.4 Lymphocytes % 22.2 Monocytes % 6.9 Eosinophils % 2.5 Basophils % 1.0 Sodium Potassium Chloride Carbon Dioxide Anion Gap BUN Creatinine Creat Clearance w eGFR POC Glucometer Random Glucose Hemoglobin A1c % Calcium Phosphorus Magnesium Total Bilirubin AST ALT Alkaline Phosphatase Creatine Kinase Troponin I Total Protein Albumin Triglycerides Cholesterol Total LDL Cholesterol HDL Cholesterol TSH Free T4 Urine Color Straw Urine Appearance Clear Urine pH 5.0 Ur Specific [place] 1.011 Urine Protein 2+ H Urine Glucose (UA) 2+ H Urine Ketones Negative Urine Blood 1+ H Urine Nitrite Negative Urine Bilirubin Negative Urine Urobilinogen Negative Ur Leukocyte Esterase Negative Urine RBC 6 Urine WBC 7 Ur Epithelial Cells Rare Hyaline Casts 3 Urine Mucus Rare U Random Total Protein Ur Random Sodium 98 Ur Random Potassium 21.3 Ur Random Chloride 109 Ur Random Urea Nitrogn Urine Creatinine Protein/Creatinin Ratio 05/21/16 05:55 WBC RBC Hgb Hct MCV MCHC RDW Plt Count MPV Neutrophils % Lymphocytes % Monocytes % Eosinophils % Basophils % Sodium Potassium Chloride Carbon Dioxide Anion Gap BUN Creatinine Creat Clearance w eGFR POC Glucometer 237 Random Glucose Hemoglobin A1c % Calcium Phosphorus Magnesium Total Bilirubin AST ALT Alkaline Phosphatase Creatine Kinase Troponin I Total Protein Albumin Triglycerides Cholesterol Total LDL Cholesterol HDL Cholesterol TSH Free T4 Urine Color Urine Appearance Urine pH Ur Specific [place] Urine Protein Urine Glucose (UA) Urine Ketones Urine Blood Urine Nitrite Urine Bilirubin Urine Urobilinogen Ur Leukocyte Esterase Urine RBC Urine WBC Ur Epithelial Cells Hyaline Casts Urine Mucus U Random Total Protein Ur Random Sodium Ur Random Potassium Ur Random Chloride Ur Random Urea Nitrogn Urine Creatinine Protein/Creatinin Ratio Active Medications Generic Name Dose Route Start Last Admin Trade Name Freq PRN Reason Stop Dose Admin Acetaminophen 650 mg 05/21/16 02:09 05/21/16 02:20 Tylenol - PO 650 mg Q6H PRN Administration FEVER OR PAIN Aspirin 81 mg 05/20/16 10:00 05/20/16 10:14 Ecotrin - PO 81 mg DAILY [facility] Administration Furosemide 20 mg 05/20/16 06:00 05/21/16 06:10 Lasix Injection - IVPUSH 20 mg BID@0600,1400 [facility] Administration Glimepiride 3 mg 05/21/16 07:00 05/21/16 06:10 Amaryl - PO 3 mg DAILY@0700 [facility] Administration Heparin Sodium (Porcine) 5,000 unit 05/20/16 22:00 05/20/16 21:19 Heparin - SQ 5,000 unit BID [facility] Administration Insulin Aspart 1 vial 05/20/16 16:30 05/21/16 06:11 Novolog Vial Sliding Scale - SQ 4 units TIDAC [facility] Administration Protocol Nebivolol 2.5 mg 05/20/16 10:00 05/20/16 11:44 Bystolic - PO 2.5 mg DAILY [facility] Administration Rosuvastatin Calcium 20 mg 05/20/16 22:00 05/20/16 21:19 Crestor - PO Not Given HS [facility] Valsartan 40 mg 05/20/16 10:00 05/20/16 10:14 Diovan - PO 40 mg DAILY [facility] Administration CBC, BMP 05/21/16 05:35 Laboratory Tests 05/20/16 05/20/16 05/20/16 21:30 21:30 21:30 Urine Protein Urine Glucose (UA) Urine Blood Urine Nitrite Ur Leukocyte Esterase Urine WBC Ur Random Sodium 97 Ur Random Potassium Ur Random Chloride Ur Random Urea Nitrogn 235 Urine Creatinine 45.3 Protein/Creatinin Ratio 4.52 05/20/16 05/20/16 21:30 21:30 Urine Protein 2+ H Urine Glucose (UA) 2+ H Urine Blood 1+ H Urine Nitrite Negative Ur Leukocyte Esterase Negative Urine WBC 7 Ur Random Sodium 98 Ur Random Potassium 21.3 Ur Random Chloride 109 Ur Random Urea Nitrogn Urine Creatinine Protein/Creatinin Ratio CXR: Since the prior study of 02/09/2015, again is a large heart with sternal sutures and clips, congestive changes and bilateral effusions with an element of atelectasis or infiltrate at the left base. Since the prior study the right base is better aerated. The left base is have developed. 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 Worry about effects of Diuretics Uncontrolled diabetes HCG 10.2 increased Glimeperide to 3mg PO qd Will need to add JAnuvia on discharge Unable to use metformin rt CHF, YVES, prior adverse h/o with metformin BGM Novolg sliding scale Hyperlipedemia LDL 147 On crestor 20mg qhs Normocytic Anemia iron studies pending Restless leg Iron studies in am FEN Fluid : none Electrolytes: repeat chemistries in am Nutrition: diabetic diet DVT: Heparin sq Disposition: Possible DC tomorrow if renal function improves and CHF continue to improve. Pending US renal and bladder. Visit type - Emergency Visit Emergency Visit: Yes ED Registration Date: 05/19/16 Care time: The patient presented to the Emergency Department on the above date and was hospitalized for further evaluation of their emergent condition. - New Patient This patient is new to me today: No - Critical Care Critical Care patient: No
[2016-05-21 08:29] LABS: CALCIUM 8.6 mg/dL (8.5-10.1); MAGNESIUM 2.2 mg/dL (1.8-2.4)
[2016-05-21 08:31] LABS: CREATININE 2.3 mg/dL (0.55-1.02); PHOSPHOROUS 4.4 mg/dL (2.5-4.9)
[2016-05-21 09:36] LABS: FERRITIN 25.66 ng/ml (6.9-282.5)
[2016-05-21] MEDS ORDERED: PT OWN MED DRAWER 7, Y5N ONE ×3 (09:48→21:18)
[2016-05-21] MEDS: VALSARTAN 40 MG TABLET (FP) PO SCH (09:50)
[2016-05-21] MEDS: HEPARIN NA (PORCINE) 5,000 UNITS/ML 1ML VIAL SQ SCH ×2 (09:50→21:31)
[2016-05-21] MEDS: ASPIRIN COATED 81 MG TABLET.EC PO SCH (09:50)
--- NOTE | 2016-05-21 11:19 | PN ---
Progress Note, Physician History of Present Illness: Dyspnea and LE edema resolving. - Current Medication List Current Medications: Active Medications Acetaminophen (Tylenol -) 650 mg PO Q6H PRN PRN Reason: FEVER OR PAIN Last Admin: 05/21/16 02:20 Dose: 650 mg Aspirin (Ecotrin -) 81 mg PO DAILY [facility] Last Admin: 05/21/16 09:50 Dose: 81 mg Furosemide (Lasix Injection -) 20 mg IVPUSH BID@0600,1400 [facility] Last Admin: 05/21/16 06:10 Dose: 20 mg Glimepiride (Amaryl -) 3 mg PO DAILY@0700 [facility] Last Admin: 05/21/16 06:10 Dose: 3 mg Heparin Sodium (Porcine) (Heparin -) 5,000 unit SQ BID [facility] Last Admin: 05/21/16 09:50 Dose: 5,000 unit Insulin Aspart (Novolog Vial Sliding Scale -) 1 vial SQ TIDAC [facility] PRN Reason: Protocol Last Admin: 05/21/16 06:11 Dose: 4 units Nebivolol (Bystolic -) 2.5 mg PO DAILY [facility] Last Admin: 05/20/16 11:44 Dose: 2.5 mg Rosuvastatin Calcium (Crestor -) 20 mg PO HS [facility] Last Admin: 05/20/16 21:19 Dose: Not Given Valsartan (Diovan -) 40 mg PO DAILY [facility] Last Admin: 05/21/16 09:50 Dose: 40 mg - Objective Vital Signs: Vital Signs Temperature 97.9 F 05/21/16 06:00 Pulse Rate 64 05/21/16 06:00 Respiratory Rate 20 05/21/16 06:00 Blood Pressure 148/90 05/21/16 06:00 O2 Sat by Pulse Oximetry (%) 98 05/20/16 21:00 Constitutional: Yes: No Distress, Calm Neck: Yes: Supple Cardiovascular: Yes: Regular Rate and Rhythm, Murmur (2/6 SM) Respiratory: Yes: Regular, Diminished Gastrointestinal: Yes: Normal Bowel Sounds, Soft Edema: No Labs: CBC, BMP 05/21/16 05:35 05/21/16 05:35 INR, PTT INR 1.12 (0.82-1.09) 05/20/16 05:35 Problem List - Problems (1) Diabetes mellitus, insulin dependent (IDDM), uncontrolled Code(s): E10.65 - TYPE 1 DIABETES MELLITUS WITH HYPERGLYCEMIA Qualifiers: Diabetes mellitus complication status: with kidney complications Diabetes mellitus complication detail: with chronic kidney disease Chronic kidney disease stage: stage 3 (moderate) Qualified Code(s): E10.22 - Type 1 diabetes mellitus with diabetic chronic kidney disease; E10.65 - Type 1 diabetes mellitus with hyperglycemia; N18.1 - Chronic kidney disease, stage 1 (2) Acute on chronic systolic (congestive) heart failure Code(s): I50.23 - ACUTE ON CHRONIC SYSTOLIC (CONGESTIVE) HEART FAILURE (3) Coronary artery disease Code(s): I25.10 - ATHSCL HEART DISEASE OF [place] CORONARY ARTERY W/O ANG PCTRS Qualifiers: Coronary Disease-Associated Artery/Lesion type: [place] artery [place] vs. transplanted heart: [place] heart Associated angina: without angina Qualified Code(s): I25.10 - Atherosclerotic heart disease of [place] coronary artery without angina pectoris (4) S/P CABG (coronary artery bypass graft) Code(s): Z95.1 - PRESENCE OF AORTOCORONARY BYPASS GRAFT (5) Ischemic dilated cardiomyopathy Code(s): I25.5 - ISCHEMIC CARDIOMYOPATHY (6) Gnszq-aj-iqsuteh kidney injury Code(s): N17.9 - ACUTE KIDNEY FAILURE, UNSPECIFIED N18.9 - CHRONIC KIDNEY DISEASE, UNSPECIFIED (7) Hyperlipidemia Code(s): E78.5 - HYPERLIPIDEMIA, UNSPECIFIED Qualifiers: Hyperlipidemia type: pure hypercholesterolemia Qualified Code(s): E78.0 - Pure hypercholesterolemia (8) Hypertensive cardiomyopathy Code(s): I11.9 - HYPERTENSIVE HEART DISEASE WITHOUT HEART FAILURE I42.9 - CARDIOMYOPATHY, UNSPECIFIED Qualifiers: Heart failure presence: with heart failure Qualified Code(s): I11.0 - Hypertensive heart disease with heart failure (9) Non-compliance Code(s): Z91.19 - PATIENT'S NONCOMPLIANCE W [facility] Assessment/Plan 05/20/2016 Echo: Mild LAE, dilated LV with severely decreased LV fxn, mod-severe MR, TR, mild [place], [place], RVSP 48 mmHg 1. Acute on chronic LV systolic failure, dilated ischemic cardiomyopathy sig MR/ TR with class III NYHA classification LV failure improving 2. CAD post CABG angina pectoris 3. sternal wound infection 4. HTN, not at goal 5. Insulin-dependent diabetes mellitus not well-controlled 6. Hypercholesterolemia 7. Acute on CKD PLAN: 1. Decrease Lasix 20 qd, mobilize 2. Tolerating Bystolic 2.5 qd and will uptitrate, intolerant to previous Coreg, Lopressor and Toprl XL therapies 3. Diovan 40 qd with caution monitoring renal fxn and K 4. Continue Crestor 20 qhs, optimize hypoglycemic therapy 5. Discussed ICD for primary prophylaxis, may be pursued as outpatient
[2016-05-21] MEDS: NEBIVOLOL 2.5 MG TABLET (FP) PO SCH ×2 (12:08→21:31)
[2016-05-21] MEDS ORDERED: sitaGLIPtin PHOSPHATE 25 MG TABLET (FP) PO ONE (12:15)
--- NOTE | 2016-05-21 16:14 | PN ---
Progress Note, Physician History of Present Illness: Pt seen and examined at bedside. She says she feels better today. - Current Medication List Current Medications: Active Medications Acetaminophen (Tylenol -) 650 mg PO Q6H PRN PRN Reason: FEVER OR PAIN Last Admin: 05/21/16 02:20 Dose: 650 mg Aspirin (Ecotrin -) 81 mg PO DAILY [facility] Last Admin: 05/21/16 09:50 Dose: 81 mg Furosemide (Lasix -) 20 mg PO DAILY [facility] Glimepiride (Amaryl -) 3 mg PO DAILY@0700 [facility] Last Admin: 05/21/16 06:10 Dose: 3 mg Heparin Sodium (Porcine) (Heparin -) 5,000 unit SQ BID [facility] Last Admin: 05/21/16 09:50 Dose: 5,000 unit Insulin Aspart (Novolog Vial Sliding Scale -) 1 vial SQ TIDAC [facility] PRN Reason: Protocol Last Admin: 05/21/16 12:08 Dose: Not Given Nebivolol (Bystolic -) 2.5 mg PO BID [facility] Last Admin: 05/21/16 12:08 Dose: 2.5 mg Rosuvastatin Calcium (Crestor -) 20 mg PO HS [facility] Last Admin: 05/20/16 21:19 Dose: Not Given Sitagliptin Phosphate (Januvia -) 25 mg PO DAILY@0700 [facility] Valsartan (Diovan -) 40 mg PO DAILY [facility] Last Admin: 05/21/16 09:50 Dose: 40 mg - Objective Vital Signs: Vital Signs Temperature 98.2 F 05/21/16 13:33 Pulse Rate 747 H 05/21/16 13:33 Respiratory Rate 20 05/21/16 13:33 Blood Pressure 147/68 05/21/16 13:33 O2 Sat by Pulse Oximetry (%) 96 05/21/16 09:00 Constitutional: Yes: Calm Eyes: Yes: Conjunctiva Clear HENT: Yes: Atraumatic Cardiovascular: Yes: S1, S2 Respiratory: Yes: CTA Bilaterally Gastrointestinal: Yes: Soft Genitourinary: Yes: WNL Musculoskeletal: Yes: WNL Edema: No Neurological: Yes: Oriented Psychiatric: Yes: Oriented Labs: CBC, BMP 05/21/16 05:35 05/21/16 05:35 INR, PTT INR 1.12 (0.82-1.09) 05/20/16 05:35 Problem List - Problems (1) Acute renal failure Code(s): N17.9 - ACUTE KIDNEY FAILURE, UNSPECIFIED (2) CHF (congestive heart failure) Code(s): I50.9 - HEART FAILURE, UNSPECIFIED Qualifiers: Congestive heart failure type: unspecified congestive heart failure type Congestive heart failure chronicity: acute on chronic Qualified Code(s ): I50.9 - Heart failure, unspecified (3) COPD exacerbation Code(s): J44.1 - CHRONIC OBSTRUCTIVE PULMONARY DISEASE W (ACUTE) EXACERBATION (4) Diabetes mellitus, insulin dependent (IDDM), uncontrolled Code(s): E10.65 - TYPE 1 DIABETES MELLITUS WITH HYPERGLYCEMIA Qualifiers: Diabetes mellitus complication status: with kidney complications Diabetes mellitus complication detail: with chronic kidney disease Chronic kidney disease stage: stage 3 (moderate) Qualified Code(s): E10.22 - Type 1 diabetes mellitus with diabetic chronic kidney disease; E10.65 - Type 1 diabetes mellitus with hyperglycemia; N18.1 - Chronic kidney disease, stage 1 (5) Dyspnea Code(s): R06.00 - DYSPNEA, UNSPECIFIED Assessment/Plan Current Medications Generic Name Dose Route Start Last Admin Trade Name Freq PRN Reason Stop Dose Admin Acetaminophen 650 mg 05/21/16 02:09 05/21/16 02:20 Tylenol - PO 650 mg Q6H PRN Administration FEVER OR PAIN Aspirin 81 mg 05/20/16 10:00 05/21/16 09:50 Ecotrin - PO 81 mg DAILY [facility] Administration Furosemide 20 mg 05/22/16 10:00 Lasix - PO DAILY [facility] Glimepiride 3 mg 05/21/16 07:00 05/21/16 06:10 Amaryl - PO 3 mg DAILY@0700 [facility] Administration Heparin Sodium (Porcine) 5,000 unit 05/20/16 22:00 05/21/16 09:50 Heparin - SQ 5,000 unit BID [facility] Administration Insulin Aspart 1 vial 05/20/16 16:30 05/21/16 12:08 Novolog Vial Sliding Scale - SQ Not Given TIDAC [facility] Protocol Nebivolol 2.5 mg 05/21/16 22:00 05/21/16 12:08 Bystolic - PO 2.5 mg BID [facility] Administration Rosuvastatin Calcium 20 mg 05/20/16 22:00 05/20/16 21:19 Crestor - PO Not Given HS [facility] Sitagliptin Phosphate 25 mg 05/22/16 07:00 Januvia - PO DAILY@0700 [facility] Valsartan 40 mg 05/20/16 10:00 05/21/16 09:50 Diovan - PO 40 mg DAILY [facility] Administration Laboratory Tests 05/20/16 05/20/16 21:30 21:30 Urine Protein 2+ H Urine Glucose (UA) 2+ H Urine Blood 1+ H Protein/Creatinin Ratio 4.52 Impression 1. YVES 2. CHF acute systolic 3. DM 4. HTN 5. hyperlipidemia Plan - pt has nephrotic range proteinuria, this can be explained by uncontrolled DM however she will need a renal workup - follow up renal ultrasound - creatinine is higher today - will monitor closely while on arb - repeat bmp in am - avoid nsaids - echo reviewed - caution with arb, monitor lytes and shank cutter - will follow Dr Pond
--- NOTE | 2016-05-21 18:54 | PN ---
Teaching Attending Note Name of Resident: Tod Anders ATTENDING PHYSICIAN STATEMENT I saw and evaluated the patient. I reviewed the resident's note and discussed the case with the resident. I agree with the resident's findings and plan as documented. SUBJECTIVE: Feeling better today with no acute distress OBJECTIVE: Vital Signs Temperature 98.2 F 05/21/16 13:33 Pulse Rate 747 H 05/21/16 13:33 Respiratory Rate 20 05/21/16 13:33 Blood Pressure 147/68 05/21/16 13:33 O2 Sat by Pulse Oximetry (%) 96 05/21/16 09:00 GENERAL: Awake, alert, and fully oriented, in no acute distress. HEAD: Normal with no signs of trauma. EYES: Pupils equal, round and reactive to light, extraocular movements intact, sclera anicteric, conjunctiva clear. EARS, NOSE, THROAT: Ears normal, oropharynx clear without exudates. Moist mucous membranes. NECK: Normal range of motion, supple without lymphadenopathy, JVD, or masses. LUNGS: Breath sounds equal, clear to auscultation bilaterally. No wheezes, and no crackles. No accessory muscle use. HEART: Regular rate and rhythm, normal S1 and S2 , MING 2/6 , rub or gallop. ABDOMEN: Soft, nontender, not distended, normoactive bowel sounds, no guarding, no rebound, no masses. No hepatomegaly or splenomegaly. MUSCULOSKELETAL: Normal range of motion at all joints. No bony deformities or tenderness. No CVA tenderness. EXTREMITIES: 2+ pulses, warm, well-perfused. positive edema Left 1 plus at the ankle from 2 plus NEUROLOGICAL: Cranial nerves II-XII intact. Normal speech. Normal gait. PSYCHIATRIC: Cooperative. Good eye contact. Appropriate mood and affect. SKIN: Warm, dry, normal turgor, no rashes or lesions noted. CBCD WBC 9.6 K/mm3 (4.0-10.0) 05/21/16 05:35 RBC 3.29 M/mm3 (3.60-5.2) L 05/21/16 05:35 Hgb 9.4 GM/dL (10.7-15.3) L 05/21/16 05:35 Hct 28.1 % (32.4-45.2) L 05/21/16 05:35 MCV 85.4 fl (80-96) 05/21/16 05:35 MCHC 33.4 g/dl (32.0-36.0) 05/21/16 05:35 RDW 14.8 % (11.6-15.6) 05/21/16 05:35 Plt Count 211 K/MM3 (134-434) 05/21/16 05:35 MPV 9.0 fl (7.5-11.1) 05/21/16 05:35 CMP Sodium 137 mmol/L (136-145) 05/21/16 05:35 Potassium 3.8 mmol/L (3.5-5.1) 05/21/16 05:35 Chloride 100 mmol/L (98-107) 05/21/16 05:35 Carbon Dioxide 28 mmol/L (21-32) 05/21/16 05:35 Anion Gap 9 (8-16) 05/21/16 05:35 BUN 38 mg/dL (7-18) H 05/21/16 05:35 Creatinine 2.3 mg/dL (0.55-1.02) H D 05/21/16 05:35 Creat Clearance w eGFR 27.34 (>60) 05/20/16 05:35 Random Glucose 216 mg/dL (74-106) H D 05/21/16 05:35 Calcium 8.6 mg/dL (8.5-10.1) 05/21/16 05:35 Total Bilirubin 0.6 mg/dL (0.2-1.0) 05/20/16 05:35 AST 16 U/L (15-37) 05/20/16 05:35 ALT 24 U/L (12-78) 05/20/16 05:35 Alkaline Phosphatase 96 U/L (45-117) 05/20/16 05:35 Total Protein 5.6 g/dl (6.4-8.2) L 05/20/16 05:35 Albumin 3.1 g/dl (3.4-5.0) L 05/20/16 05:35 CARDIAC ENZYMES Creatine Kinase 106 IU/L (26-192) 05/20/16 11:42 Troponin I 0.06 ng/ml (0.00-0.05) H 05/20/16 11:42 Current Medications Generic Name Dose Route Start Last Admin Trade Name Freq PRN Reason Stop Dose Admin Acetaminophen 650 mg 05/21/16 02:09 05/21/16 02:20 Tylenol - PO 650 mg Q6H PRN Administration FEVER OR PAIN Aspirin 81 mg 05/20/16 10:00 05/21/16 09:50 Ecotrin - PO 81 mg DAILY [facility] Administration Furosemide 20 mg 05/22/16 10:00 Lasix - PO DAILY [facility] Glimepiride 3 mg 05/21/16 07:00 05/21/16 06:10 Amaryl - PO 3 mg DAILY@0700 [facility] Administration Heparin Sodium (Porcine) 5,000 unit 05/20/16 22:00 05/21/16 09:50 Heparin - SQ 5,000 unit BID [facility] Administration Insulin Aspart 1 vial 05/20/16 16:30 05/21/16 17:00 Novolog Vial Sliding Scale - SQ Not Given TIDAC [facility] Protocol Nebivolol 2.5 mg 05/21/16 22:00 05/21/16 12:08 Bystolic - PO 2.5 mg BID [facility] Administration Rosuvastatin Calcium 20 mg 05/20/16 22:00 05/20/16 21:19 Crestor - PO Not Given HS [facility] Sitagliptin Phosphate 25 mg 05/22/16 07:00 Januvia - PO DAILY@0700 [facility] Valsartan 40 mg 05/20/16 10:00 05/21/16 09:50 Diovan - PO 40 mg DAILY [facility] Administration Medication Instructions Recorded Glimepiride [Amaryl -] 1 mg PO DAILY 05/19/16 ASSESSMENT AND PLAN: Patient is a 56 year old female with PMHx of COPD and CHF s/p CABG x (4 vessels ) recently , who presents to the emergency department with shortness of breath, cough and bilateral ankle edema. # Acute systolic Congestive heart failure with EJF 31% with 4 vessel disease s/ p Cabg, echo result reviewed ;CE were negative, switched to po lasix 20mg daily Cardiology consult appreciated Is and Os, weigh daily started patient on on Bystolic with caution # HTN is more controlled now # LE edema on diuretic gently , will check TSH ,FT4. # ARF will monitor closely, on consult. 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 HL: LDL above goal of 70 .started statin # T2DM uncontrolled accu check with sliding scale q4hr with coverage on amaryl and will add erica # c/o Sore throat; ordered influenza on her , negative throat exam and ear exam DVT Px:heparin Problem List - Problems (1) CHF (congestive heart failure) Code(s): I50.9 - HEART FAILURE, UNSPECIFIED Qualifiers: Congestive heart failure type: unspecified congestive heart failure type Congestive heart failure chronicity: acute on chronic Qualified Code(s ): I50.9 - Heart failure, unspecified (2) Diabetes mellitus, insulin dependent (IDDM), uncontrolled Code(s): E10.65 - TYPE 1 DIABETES MELLITUS WITH HYPERGLYCEMIA Qualifiers: Diabetes mellitus complication status: with kidney complications Diabetes mellitus complication detail: with chronic kidney disease Chronic kidney disease stage: stage 3 (moderate) Qualified Code(s): E10.22 - Type 1 diabetes mellitus with diabetic chronic kidney disease; E10.65 - Type 1 diabetes mellitus with hyperglycemia; N18.1 - Chronic kidney disease, stage 1 (3) Dyspnea Code(s): R06.00 - DYSPNEA, UNSPECIFIED (4) Acute renal failure Code(s): N17.9 - ACUTE KIDNEY FAILURE, UNSPECIFIED
[2016-05-21] MEDS: ROSUVASTATIN CA 20 MG TABLET (FP) PO SCH (21:31)
[2016-05-22] MEDS: GLIMEPIRIDE 2 MG TABLET (FP) PO SCH (06:16)
[2016-05-22] MEDS: INSULIN SLIDING SCALE (NOVOLOG) 1 VIAL SQ SCH ×2 (06:18→12:09)
[2016-05-22] MEDS ORDERED: sitaGLIPtin PHOSPHATE 25 MG TABLET (FP) PO SCH (07:00)
[2016-05-22 07:26] LABS: BASOPHIL 0.8 % (0-2.0); EOSINOPHIL 2.2 % (0-4.5); MCH 28.5 pg (25.7-33.7); MCHC 33.3 g/dl (32.0-36.0); MEAN CELL VOLUME 85.6 fl (80-96); MEAN PLT VOLUME 9.2 fl (7.5-11.1); NEUTROPHILS 68.2 % (42.8-82.8); PLATELET COUNT 216 K/MM3 (134-434); WHITE BLOOD COUNT 10.6 K/mm3 (4.0-10.0)
[2016-05-22 08:02] LABS: ALBUMIN 2.9 g/dl (3.4-5.0); BILIRUBIN,TOTAL 0.4 mg/dL (0.2-1.0); CALCIUM 8.2 mg/dL (8.5-10.1); CREATININE 2.3 mg/dL (0.55-1.02); TOT PROT 5.3 g/dl (6.4-8.2)
[2016-05-22 08:07] LABS: SERUM IRON 36 ug/dL (27-159); TOTAL IRON BINDING CAPACITY 302 ug/dL (250-450); TRANSFERRIN 271 mg/dL (200-370); UIBC 266 ug/dL (131-425)
--- NOTE | 2016-05-22 08:48 | PN ---
Physical Exam: SUBJECTIVE: Patient seen and examined OBJECTIVE: Vital Signs Period Temp Pulse Resp BP Sys/Horowitz Pulse Ox Last 24 Hr 97.5 F-98.8 F 63-747 18-20 125-147/65-86 96-96 GENERAL: The patient is awake, alert, and fully oriented, in no acute distress. HEAD: Normal with no signs of trauma. EYES: PERRL, extraocular movements intact, sclera anicteric, conjunctiva clear. No ptosis. ENT: Ears normal, nares patent, oropharynx clear without exudates, moist mucous membranes. NECK: Trachea midline, full range of motion, supple. LUNGS: Breath sounds equal, clear to auscultation bilaterally, no wheezes, no crackles, no accessory muscle use. HEART: Regular rate and rhythm, S1, S2 without murmur, rub or gallop. ABDOMEN: Soft, nontender, nondistended, normoactive bowel sounds, no guarding, no rebound, no hepatosplenomegaly, no masses. EXTREMITIES: 2+ pulses, warm, well-perfused, no edema. NEUROLOGICAL: Cranial nerves II through XII grossly intact. Normal speech, gait not observed. PSYCH: Normal mood, normal affect. SKIN: Warm, dry, normal turgor, no rashes or lesions noted Laboratory Results - last 24 hr 05/21/16 05/21/16 05/21/16 05:35 05:35 05:35 WBC RBC Hgb Hct MCV MCHC RDW Plt Count MPV Neutrophils % Lymphocytes % Monocytes % Eosinophils % Basophils % Sodium Potassium Chloride Carbon Dioxide Anion Gap BUN Creatinine Creat Clearance w eGFR POC Glucometer Random Glucose Calcium Iron 36 TIBC 302 Iron Saturation 12 L Transferrin 271 Ferritin 25.660 Cancelled Total Bilirubin AST ALT Alkaline Phosphatase Total Protein Albumin 05/21/16 05/21/16 05/21/16 11:06 16:00 21:30 WBC RBC Hgb Hct MCV MCHC RDW Plt Count MPV Neutrophils % Lymphocytes % Monocytes % Eosinophils % Basophils % Sodium Potassium Chloride Carbon Dioxide Anion Gap BUN Creatinine Creat Clearance w eGFR POC Glucometer 173 128 121 Random Glucose Calcium Iron TIBC Iron Saturation Transferrin Ferritin Total Bilirubin AST ALT Alkaline Phosphatase Total Protein Albumin 05/22/16 05/22/16 05/22/16 03:21 05:35 05:35 WBC 10.6 H RBC 3.30 L Hgb 9.4 L Hct 28.2 L MCV 85.6 MCHC 33.3 RDW 15.0 Plt Count 216 MPV 9.2 Neutrophils % 68.2 Lymphocytes % 20.3 Monocytes % 8.5 Eosinophils % 2.2 Basophils % 0.8 Sodium 138 Potassium 3.9 Chloride 103 Carbon Dioxide 27 Anion Gap 8 BUN 38 H Creatinine 2.3 H Creat Clearance w eGFR 21.93 POC Glucometer 111 Random Glucose 98 D Calcium 8.2 L Iron TIBC Iron Saturation Transferrin Ferritin Total Bilirubin 0.4 D AST 19 ALT 28 Alkaline Phosphatase 85 Total Protein 5.3 L Albumin 2.9 L 05/22/16 06:15 WBC RBC Hgb Hct MCV MCHC RDW Plt Count MPV Neutrophils % Lymphocytes % Monocytes % Eosinophils % Basophils % Sodium Potassium Chloride Carbon Dioxide Anion Gap BUN Creatinine Creat Clearance w eGFR POC Glucometer 113 Random Glucose Calcium Iron TIBC Iron Saturation Transferrin Ferritin Total Bilirubin AST ALT Alkaline Phosphatase Total Protein Albumin Active Medications Generic Name Dose Route Start Last Admin Trade Name Freq PRN Reason Stop Dose Admin Acetaminophen 650 mg 05/21/16 02:09 05/21/16 02:20 Tylenol - PO 650 mg Q6H PRN Administration FEVER OR PAIN Aspirin 81 mg 05/20/16 10:00 05/21/16 09:50 Ecotrin - PO 81 mg DAILY [facility] Administration Furosemide 20 mg 05/22/16 10:00 Lasix - PO DAILY [facility] Glimepiride 3 mg 05/21/16 07:00 05/22/16 06:16 Amaryl - PO 3 mg DAILY@0700 [facility] Administration Heparin Sodium (Porcine) 5,000 unit 05/20/16 22:00 05/21/16 21:31 Heparin - SQ 5,000 unit BID [facility] Administration Insulin Aspart 1 vial 05/20/16 16:30 05/22/16 06:18 Novolog Vial Sliding Scale - SQ Not Given TIDAC [facility] Protocol Nebivolol 2.5 mg 05/21/16 22:00 05/21/16 21:31 Bystolic - PO 2.5 mg BID [facility] Administration Rosuvastatin Calcium 20 mg 05/20/16 22:00 05/21/16 21:31 Crestor - PO Not Given HS [facility] Sitagliptin Phosphate 25 mg 05/22/16 07:00 05/22/16 06:16 Januvia - PO 25 mg DAILY@0700 [facility] Administration Valsartan 40 mg 05/20/16 10:00 05/21/16 09:50 Diovan - PO 40 mg DAILY [facility] Administration CBC, BMP 05/22/16 05:35 05/22/16 05:35 Laboratory Tests 05/21/16 05/22/16 05:35 05:35 Iron 36 TIBC 302 Iron Saturation 12 L Transferrin 271 Albumin 2.9 L CXR: Since the prior study of 02/09/2015, again is a large heart with sternal sutures and clips, congestive changes and bilateral effusions with an element of atelectasis or infiltrate at the left base. Since the prior study the right base is better aerated. The left base is have developed. 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 Worry about effects of Diuretics Uncontrolled diabetes HCG 10.2 increased Glimeperide to 3mg PO qd JAnuvia added Unable to use metformin rt CHF, YVES, prior adverse h/o with metformin BGM Novolg sliding scale Hyperlipedemia LDL 147 On crestor 20mg qhs Normocytic Anemia iron studies pending Restless leg Iron studies in am FEN Fluid : none Electrolytes: repeat chemistries in am Nutrition: diabetic diet DVT: Heparin sq Disposition: Possible DC tomorrow if renal function improves and CHF continue to improve. Pending US renal and bladder.
[2016-05-22] MEDS ORDERED: PT OWN MED DRAWER 7, Y5N ONE ×2 (08:59→09:57)
--- NOTE | 2016-05-22 09:35 | PN ---
Progress Note, Physician Chief Complaint: Not in distress History of Present Illness: Patient was seen and examined. Awake and alert. Chart was reviewed Feels better with less SOB Denies chest pain or palpitation - Current Medication List Current Medications: Active Medications Acetaminophen (Tylenol -) 650 mg PO Q6H PRN PRN Reason: FEVER OR PAIN Last Admin: 05/21/16 02:20 Dose: 650 mg Aspirin (Ecotrin -) 81 mg PO DAILY [facility] Last Admin: 05/21/16 09:50 Dose: 81 mg Furosemide (Lasix -) 20 mg PO DAILY [facility] Glimepiride (Amaryl -) 3 mg PO DAILY@0700 [facility] Last Admin: 05/22/16 06:16 Dose: 3 mg Heparin Sodium (Porcine) (Heparin -) 5,000 unit SQ BID [facility] Last Admin: 05/21/16 21:31 Dose: 5,000 unit Insulin Aspart (Novolog Vial Sliding Scale -) 1 vial SQ TIDAC [facility] PRN Reason: Protocol Last Admin: 05/22/16 06:18 Dose: Not Given Nebivolol (Bystolic -) 2.5 mg PO BID [facility] Last Admin: 05/21/16 21:31 Dose: 2.5 mg Rosuvastatin Calcium (Crestor -) 20 mg PO HS [facility] Last Admin: 05/21/16 21:31 Dose: Not Given Sitagliptin Phosphate (Januvia -) 25 mg PO DAILY@0700 [facility] Last Admin: 05/22/16 06:16 Dose: 25 mg Valsartan (Diovan -) 40 mg PO DAILY [facility] Last Admin: 05/21/16 09:50 Dose: 40 mg - Objective Vital Signs: Vital Signs Temperature 97.5 F L 05/22/16 05:00 Pulse Rate 64 05/22/16 05:00 Respiratory Rate 20 05/22/16 05:00 Blood Pressure 137/70 05/22/16 05:00 O2 Sat by Pulse Oximetry (%) 96 05/21/16 21:00 Neck: Yes: Supple Cardiovascular: Yes: Regular Rate and Rhythm, Murmur (Soft SM), S1, S2 Respiratory: Yes: Diminished Gastrointestinal: Yes: Normal Bowel Sounds, Soft. No: Tenderness Edema: No Additional Findings/Remarks: - Review of Systems Constitutional: no symptoms reported Respiratory: denies Cough and Sputum Production Cardiovascular: as noted above Gastrointestinal: denies Nausea, Vomiting, Diarrhea, Constipation or Abdominal Pain Genitourinary: no symptoms reported Musculoskeletal: no symptoms reported Endocrine: no symptoms reported Labs: CBC, BMP 05/22/16 05:35 05/22/16 05:35 Problem List - Problems (1) [id number] kidney injury Code(s): N17.9 - ACUTE KIDNEY FAILURE, UNSPECIFIED N18.9 - CHRONIC KIDNEY DISEASE, UNSPECIFIED (2) COPD exacerbation Code(s): J44.1 - CHRONIC OBSTRUCTIVE PULMONARY DISEASE W (ACUTE) EXACERBATION (3) Diabetes mellitus, insulin dependent (IDDM), uncontrolled Code(s): E10.65 - TYPE 1 DIABETES MELLITUS WITH HYPERGLYCEMIA Qualifiers: Diabetes mellitus complication status: with kidney complications Diabetes mellitus complication detail: with chronic kidney disease Chronic kidney disease stage: stage 3 (moderate) Qualified Code(s): E10.22 - Type 1 diabetes mellitus with diabetic chronic kidney disease; E10.65 - Type 1 diabetes mellitus with hyperglycemia; N18.1 - Chronic kidney disease, stage 1 (4) Coronary artery disease Code(s): I25.10 - ATHSCL HEART DISEASE OF COUNCIL CORONARY ARTERY W/O ANG PCTRS Qualifiers: Coronary Disease-Associated Artery/Lesion type: [place] artery [place] vs. transplanted heart: [place] heart Associated angina: without angina Qualified Code(s): I25.10 - Atherosclerotic heart disease of [place] coronary artery without angina pectoris (5) Hyperlipidemia Code(s): E78.5 - HYPERLIPIDEMIA, UNSPECIFIED Qualifiers: Hyperlipidemia type: pure hypercholesterolemia Qualified Code(s): E78.0 - Pure hypercholesterolemia (6) Ischemic dilated cardiomyopathy Code(s): I25.5 - ISCHEMIC CARDIOMYOPATHY (7) S/P CABG (coronary artery bypass graft) Code(s): Z95.1 - PRESENCE OF AORTOCORONARY BYPASS GRAFT Assessment/Plan 1. Acute on chronic LV systolic failure, dilated ischemic cardiomyopathy with class III-IV NYHA classification LV failure 2. CAD post CABG angina pectoris 3. MR 4. sternal wound infection 5. HTN, not at goal 6. Insulin-dependent diabetes mellitus 7. Hypercholesterolemia 8. CKD PLAN: 1. Continue Lasix 2. Bystolic with caution, patient has intolerance to Coreg, Lopressor and Toprl XL therapies 3. Continue Valsartan 4. Statin therapy 5. Transthoracic echocardiography report noted Further plans are to follow. Discharge planning. Morgan Sheehan MD
[2016-05-22] MEDS ORDERED: FUROSEMIDE 20 MG TABLET (FP) PO SCH (10:00)
[2016-05-22] MEDS: NEBIVOLOL 2.5 MG TABLET (FP) PO SCH (10:01)
[2016-05-22] MEDS: HEPARIN NA (PORCINE) 5,000 UNITS/ML 1ML VIAL SQ SCH (10:01)
[2016-05-22] MEDS: VALSARTAN 40 MG TABLET (FP) PO SCH (10:01)
[2016-05-22] MEDS: ASPIRIN COATED 81 MG TABLET.EC PO SCH (10:01)
--- NOTE | 2016-05-22 14:55 | DS ---
Physical Exam: SUBJECTIVE: Patient seen and examined No event overnight Pt is ready for discharge no chest pain, shortness of breath, no palpitations, no cough, improving lower ext edema no n/v no fever, chills OBJECTIVE: Vital Signs Period Temp Pulse Resp BP Sys/Horowitz Pulse Ox Last 24 Hr 97.5 F-98.8 F 63-69 18-20 125-138/70-86 96-99 PHYSICAL EXAM GENERAL: The patient is awake, alert, and fully oriented, in no acute distress. HEAD: Normal with no signs of trauma. EYES: PERRL, extraocular movements intact, sclera anicteric, conjunctiva clear. No ptosis. ENT: Ears normal, nares patent, oropharynx clear without exudates, moist mucous membranes. NECK: Trachea midline, full range of motion, supple. LUNGS: Breath sounds equal, clear to auscultation bilaterally, diminished at bases, no wheezes, no accessory muscle use. HEART: Regular rate and rhythm, S1, S2 without murmur, rub or gallop. ABDOMEN: Soft, nontender, nondistended, normoactive bowel sounds, no guarding, no rebound, no hepatosplenomegaly, no masses. EXTREMITIES: 2+ pulses, warm, well-perfused. +1 edema in b/l lower ext. NEUROLOGICAL:. Normal speech, gait not observed. PSYCH: Normal mood, normal affect. SKIN: Warm, dry, normal turgor, no rashes or lesions noted LABS Laboratory Results - last 24 hr 05/21/16 05/21/16 05/21/16 05:35 16:00 21:30 WBC RBC Hgb Hct MCV MCHC RDW Plt Count MPV Neutrophils % Lymphocytes % Monocytes % Eosinophils % Basophils % Sodium Potassium Chloride Carbon Dioxide Anion Gap BUN Creatinine Creat Clearance w eGFR POC Glucometer 128 121 Random Glucose Calcium Iron 36 TIBC 302 Iron Saturation 12 L Transferrin 271 Total Bilirubin AST ALT Alkaline Phosphatase Total Protein Albumin 05/22/16 05/22/16 05/22/16 03:21 05:35 05:35 WBC 10.6 H RBC 3.30 L Hgb 9.4 L Hct 28.2 L MCV 85.6 MCHC 33.3 RDW 15.0 Plt Count 216 MPV 9.2 Neutrophils % 68.2 Lymphocytes % 20.3 Monocytes % 8.5 Eosinophils % 2.2 Basophils % 0.8 Sodium 138 Potassium 3.9 Chloride 103 Carbon Dioxide 27 Anion Gap 8 BUN 38 H Creatinine 2.3 H Creat Clearance w eGFR 21.93 POC Glucometer 111 Random Glucose 98 D Calcium 8.2 L Iron TIBC Iron Saturation Transferrin Total Bilirubin 0.4 D AST 19 ALT 28 Alkaline Phosphatase 85 Total Protein 5.3 L Albumin 2.9 L 05/22/16 05/22/16 06:15 11:40 WBC RBC Hgb Hct MCV MCHC RDW Plt Count MPV Neutrophils % Lymphocytes % Monocytes % Eosinophils % Basophils % Sodium Potassium Chloride Carbon Dioxide Anion Gap BUN Creatinine Creat Clearance w eGFR POC Glucometer 113 158 Random Glucose Calcium Iron TIBC Iron Saturation Transferrin Total Bilirubin AST ALT Alkaline Phosphatase Total Protein Albumin CBC, BMP 05/22/16 05:35 05/22/16 05:35 CXR : Since the prior study of 02/09/2015, again is a large heart with sternal sutures and clips, congestive changes and bilateral effusions with an element of atelectasis or infiltrate at the left base. Since the prior study the right base is better aerated. The left base is have developed. HOSPITAL COURSE: Date of Admission:05/19/16 HISTORY OF PRESENT ILLNESS: Patient is a 56 year old female with PMHx of COPD and CHF s/p CABG x (4 vessels ) recently who presents to the emergency department with shortness of breath, cough and bilateral ankle edema. Also c/o having cold like symptoms; runny nose , head congestion, and soar throat. Patient states that she cannot take B-Blockers will make her dizzy and will become hypotensive. Denies any chest pain or palpitations but has mild shortness of breath, no fever or chills, no nausea or vomiting. Also states that her sugar is not controlled, and was on Metformin and was discontinued due to causing pulmonary edema.The patient denies chest pain, headache and dizziness. Denies fever, chills, nausea, vomit, diarrhea and constipation. Denies dysuria, frequency, urgency and hematuria. 56 year old female with PMH CHF s/p CABG for 4 vessels disease and COPD (which she deneis) presented to The ED with complaint of SOB, cough, b/l lower ext edema ACute CHF r/o ACS Pt has h/o CABG and 4 vessel disease. PT came with elevated BNP, Congestive changes and effusion on CXR, with JVD, sob, lower ext edema Echo was ordered and it showed severe Global hypokinesis, LV fucntion severely reduced, Mild LA and LV dilation, Severe MR and TR, RVSP 48 lasix 20mg IV BId was given with great clinical improvement. Pt was started on Diovan, Nebivolol, Crestor by automotive parts manager. Will discharge patient on lasix 20mg PO daily. Will continue diovan, Nebivolol, Crestor Acute renal failure rt CHF Creatinine baseline 1. Worsening creatinine during this admission, today Cr was 2.3. US renal done with pending result, US bladder done. Renal was consult done. FeUrea 29% and 31.4% indicate pre-renal etiology. We expect renal function to improve with resolution of CHF. Pt will need to follow up with nephrology Dr Menendez as an outpatient Uncontrolled diabetes HCG 10.2. We increased Glimeperide to 3mg PO qd, we started pt on JAnuvia. be have gotten good results, continue these medications with frequent blood sugar check ACHS and follow hga1c in a few months. Follow up with PCP within [address] Sanchez, endocrinology. Hyperlipedemia LDL 147. started on Crestor 20mg qhs. repeat lipid panel as outpatient. Normocytic Anemia iron studies done. Follow as outptient with PCP Date of Discharge: 05/22/16 Minutes to complete discharge: 35 Discharge Summary Reason For Visit: SOB Current Active Problems Acute on chronic systolic (congestive) heart failure (Acute) Acute renal failure (Acute) Sswph-gl-lyxqcor kidney injury (Acute) CHF (congestive heart failure) (Acute) Coronary artery disease (Acute) Hyperlipidemia (Acute) Hypertensive cardiomyopathy (Acute) Ischemic dilated cardiomyopathy (Acute) Non-compliance (Acute) S/P CABG (coronary artery bypass graft) (Acute) Condition: Stable - Instructions Diet, Activity, Other Instructions: discharge home resume home activity resume diabetic diet follow up with Dr Sissy Mora, cardiology within 1 week Follow up with Dr Menendez, nephrology, within 1 week Follow up with your PCP within 1 week Follow up with your beef lugger Dr Yared Sanchez within 1 week Check you blood sugar before breakfast, lunch and dinner and before you sleep at night, report these value to your beef lugger and/or PCP If any chest pain, shortness of breath, palpitation, weakness and fatigue please call your PCP or automotive parts manager, or call 911 or come back to the emergency room If any dizziness or shakiness, confusion , call 911 and check your blood sugar. Referrals: Morgan Sheehan MD [Staff Physician] - Gilbert Pond MD [Staff Physician] - Sandi Mendez MD [Non Staff, Medical] - Disposition: HOME - Home Medications Comprehensive Discharge Medication List: Ambulatory Orders Glimepiride [Amaryl -] 1 mg PO DAILY 05/19/16 This patient is new to me today: No Emergency Visit: Yes ED Registration Date: 05/19/16 Care time: The patient presented to the Emergency Department on the above date and was hospitalized for further evaluation of their emergent condition. Critical Care patient: No - Discharge Referral Referred to [facility] Med P.C.: No
--- NOTE | 2016-05-22 15:06 | PN ---
Progress Note, Physician History of Present Illness: Pt seen and examined at bedside. She is awake and alert. I discussed her renal findings with her and she wants the workup as an outpt. She feels her breathing is comfortable. - Current Medication List Current Medications: Active Medications Acetaminophen (Tylenol -) 650 mg PO Q6H PRN PRN Reason: FEVER OR PAIN Last Admin: 05/21/16 02:20 Dose: 650 mg Aspirin (Ecotrin -) 81 mg PO DAILY [facility] Last Admin: 05/22/16 10:01 Dose: 81 mg Furosemide (Lasix -) 20 mg PO DAILY [facility] Last Admin: 05/22/16 10:01 Dose: 20 mg Glimepiride (Amaryl -) 3 mg PO DAILY@0700 [facility] Last Admin: 05/22/16 06:16 Dose: 3 mg Heparin Sodium (Porcine) (Heparin -) 5,000 unit SQ BID [facility] Last Admin: 05/22/16 10:01 Dose: 5,000 unit Insulin Aspart (Novolog Vial Sliding Scale -) 1 vial SQ TIDAC [facility] PRN Reason: Protocol Last Admin: 05/22/16 12:09 Dose: Not Given Nebivolol (Bystolic -) 2.5 mg PO BID [facility] Last Admin: 05/22/16 10:01 Dose: 2.5 mg Rosuvastatin Calcium (Crestor -) 20 mg PO HS [facility] Last Admin: 05/21/16 21:31 Dose: Not Given Sitagliptin Phosphate (Januvia -) 25 mg PO DAILY@0700 [facility] Last Admin: 05/22/16 06:16 Dose: 25 mg Valsartan (Diovan -) 40 mg PO DAILY [facility] Last Admin: 05/22/16 10:01 Dose: 40 mg - Objective Vital Signs: Vital Signs Temperature 97.9 F 05/22/16 09:00 Pulse Rate 69 05/22/16 09:00 Respiratory Rate 18 05/22/16 09:00 Blood Pressure 136/70 05/22/16 09:00 O2 Sat by Pulse Oximetry (%) 99 05/22/16 09:00 Constitutional: Yes: Calm Eyes: Yes: Conjunctiva Clear HENT: Yes: Atraumatic Neck: Yes: Supple Cardiovascular: Yes: S1, S2 Respiratory: Yes: CTA Bilaterally Gastrointestinal: Yes: Soft Genitourinary: Yes: WNL Musculoskeletal: Yes: WNL Edema: No Neurological: Yes: Oriented Psychiatric: Yes: Oriented Labs: CBC, BMP 05/22/16 05:35 05/22/16 05:35 INR, PTT INR 1.12 (0.82-1.09) 05/20/16 05:35 Problem List - Problems (1) Acute renal failure Code(s): N17.9 - ACUTE KIDNEY FAILURE, UNSPECIFIED (2) CHF (congestive heart failure) Code(s): I50.9 - HEART FAILURE, UNSPECIFIED Qualifiers: Congestive heart failure type: unspecified congestive heart failure type Congestive heart failure chronicity: acute on chronic Qualified Code(s ): I50.9 - Heart failure, unspecified (3) COPD exacerbation Code(s): J44.1 - CHRONIC OBSTRUCTIVE PULMONARY DISEASE W (ACUTE) EXACERBATION (4) Diabetes mellitus, insulin dependent (IDDM), uncontrolled Code(s): E10.65 - TYPE 1 DIABETES MELLITUS WITH HYPERGLYCEMIA Qualifiers: Diabetes mellitus complication status: with kidney complications Diabetes mellitus complication detail: with chronic kidney disease Chronic kidney disease stage: stage 3 (moderate) Qualified Code(s): E10.22 - Type 1 diabetes mellitus with diabetic chronic kidney disease; E10.65 - Type 1 diabetes mellitus with hyperglycemia; N18.1 - Chronic kidney disease, stage 1 (5) Dyspnea Code(s): R06.00 - DYSPNEA, UNSPECIFIED Assessment/Plan Current Medications Generic Name Dose Route Start Last Admin Trade Name Freq PRN Reason Stop Dose Admin Acetaminophen 650 mg 05/21/16 02:09 05/21/16 02:20 Tylenol - PO 650 mg Q6H PRN Administration FEVER OR PAIN Aspirin 81 mg 05/20/16 10:00 05/22/16 10:01 Ecotrin - PO 81 mg DAILY DEANNA Administration Furosemide 20 mg 05/22/16 10:00 05/22/16 10:01 Lasix - PO 20 mg DAILY DEANNA Administration Glimepiride 3 mg 05/21/16 07:00 05/22/16 06:16 Amaryl - PO 3 mg DAILY@0700 DEANNA Administration Heparin Sodium (Porcine) 5,000 unit 05/20/16 22:00 05/22/16 10:01 Heparin - SQ 5,000 unit BID DEANNA Administration Insulin Aspart 1 vial 05/20/16 16:30 05/22/16 12:09 Novolog Vial Sliding Scale - SQ Not Given TIDAC [facility] Protocol Nebivolol 2.5 mg 05/21/16 22:00 05/22/16 10:01 Bystolic - PO 2.5 mg BID DEANNA Administration Rosuvastatin Calcium 20 mg 05/20/16 22:00 05/21/16 21:31 Crestor - PO Not Given HS DEANNA Sitagliptin Phosphate 25 mg 05/22/16 07:00 05/22/16 06:16 Januvia - PO 25 mg DAILY@0700 DEANNA Administration Valsartan 40 mg 05/20/16 10:00 05/22/16 10:01 Diovan - PO 40 mg DAILY DEANNA Administration Impression 1. YVES 2. CHF acute systolic 3. DM 4. HTN 5. hyperlipidemia 6. CKD with nephrotic range proteinuria 7. CAD Plan - creatinine has not changed much from yesterday - follow up kidney ultrasound - pt does not further workup, she wants it done as outpt - will need better glucose control - will monitor closely while on arb - repeat bmp in am - avoid nsaids - will follow Dr Pond
--- NOTE | 2016-05-22 15:10 | EKG ---
Test Reason : Blood Pressure : / mmHG Vent. Rate : 079 BPM Atrial Rate : 079 BPM P-R Int : 144 ms QRS Dur : 120 ms QT Int : 440 ms P-R-T Axes : 066 004 154 degrees QTc Int : 504 ms NORMAL SINUS RHYTHM POSSIBLE LEFT ATRIAL ENLARGEMENT INFERIOR INFARCT (CITED ON OR BEFORE 08-FEB-2015) ABNORMAL ECG WHEN COMPARED WITH ECG OF 19-MAY-2016 13:11, NO SIGNIFICANT CHANGE WAS FOUND Confirmed by JUAN AVILEZ, ANDREZ ([id number]) on 05/22/2016 3:10:11 PM Referred By: BERTA BLANCO DR Confirmed By:ANDREZ MARTINEZ MD
--- NOTE | 2016-05-22 18:26 | PN ---
Teaching Attending Note Name of Resident: Tod Anders ATTENDING PHYSICIAN STATEMENT I saw and evaluated the patient. I reviewed the resident's note and discussed the case with the resident. I agree with the resident's findings and plan as documented. SUBJECTIVE: Patient is feeling better, the swelling of lower extremities are down. No shortness of breath. OBJECTIVE: Vital Signs Temperature 98.4 F 05/22/16 14:59 Pulse Rate 68 05/22/16 14:59 Respiratory Rate 18 05/22/16 14:59 Blood Pressure 134/73 05/22/16 14:59 O2 Sat by Pulse Oximetry (%) 99 05/22/16 09:00 GENERAL: Awake, alert, and fully oriented, in no acute distress. HEAD: Normal with no signs of trauma. EYES: Pupils equal, round and reactive to light, extraocular movements intact, sclera anicteric, conjunctiva clear. EARS, NOSE, THROAT: Ears normal, oropharynx clear without exudates. Moist mucous membranes. NECK: Normal range of motion, supple without lymphadenopathy, JVD, or masses. LUNGS: Breath sounds equal, clear to auscultation bilaterally. No wheezes, and no crackles. No accessory muscle use. HEART: Regular rate and rhythm, normal S1 and S2 , MING 2/6 , rub or gallop. ABDOMEN: Soft, nontender, not distended, normoactive bowel sounds, no guarding, no rebound, no masses. No hepatomegaly or splenomegaly. MUSCULOSKELETAL: Normal range of motion at all joints. No bony deformities or tenderness. No CVA tenderness. EXTREMITIES: 2+ pulses, warm, well-perfused. no edema on the right, left slightly edematous. NEUROLOGICAL: Cranial nerves II-XII intact. Normal speech. Normal gait. PSYCHIATRIC: Cooperative. Good eye contact. Appropriate mood and affect. SKIN: Warm, dry, normal turgor, no rashes or lesions noted. CBCD WBC 10.6 K/mm3 (4.0-10.0) H 05/22/16 05:35 RBC 3.30 M/mm3 (3.60-5.2) L 05/22/16 05:35 Hgb 9.4 GM/dL (10.7-15.3) L 05/22/16 05:35 Hct 28.2 % (32.4-45.2) L 05/22/16 05:35 MCV 85.6 fl (80-96) 05/22/16 05:35 MCHC 33.3 g/dl (32.0-36.0) 05/22/16 05:35 RDW 15.0 % (11.6-15.6) 05/22/16 05:35 Plt Count 216 K/MM3 (134-434) 05/22/16 05:35 MPV 9.2 fl (7.5-11.1) 05/22/16 05:35 CMP Sodium 138 mmol/L (136-145) 05/22/16 05:35 Potassium 3.9 mmol/L (3.5-5.1) 05/22/16 05:35 Chloride 103 mmol/L (98-107) 05/22/16 05:35 Carbon Dioxide 27 mmol/L (21-32) 05/22/16 05:35 Anion Gap 8 (8-16) 05/22/16 05:35 BUN 38 mg/dL (7-18) H 05/22/16 05:35 Creatinine 2.3 mg/dL (0.55-1.02) H 05/22/16 05:35 Creat Clearance w eGFR 21.93 (>60) 05/22/16 05:35 Random Glucose 98 mg/dL (74-106) D 05/22/16 05:35 Calcium 8.2 mg/dL (8.5-10.1) L 05/22/16 05:35 Total Bilirubin 0.4 mg/dL (0.2-1.0) D 05/22/16 05:35 AST 19 U/L (15-37) 05/22/16 05:35 ALT 28 U/L (12-78) 05/22/16 05:35 Alkaline Phosphatase 85 U/L (45-117) 05/22/16 05:35 Total Protein 5.3 g/dl (6.4-8.2) L 05/22/16 05:35 Albumin 2.9 g/dl (3.4-5.0) L 05/22/16 05:35 CARDIAC ENZYMES Creatine Kinase 106 IU/L (26-192) 05/20/16 11:42 Troponin I 0.06 ng/ml (0.00-0.05) H 05/20/16 11:42 Current Medications Generic Name Dose Route Start Last Admin Trade Name Venkatesh PRN Reason Stop Dose Admin Acetaminophen 650 mg 05/21/16 02:09 05/21/16 02:20 Tylenol - PO 650 mg Q6H PRN Administration FEVER OR PAIN Aspirin 81 mg 05/20/16 10:00 05/22/16 10:01 Ecotrin - PO 81 mg DAILY DEANNA Administration Furosemide 20 mg 05/22/16 10:00 05/22/16 10:01 Lasix - PO 20 mg DAILY DE[facility]NA Administration Glimepiride 3 mg 05/21/16 07:00 05/22/16 06:16 Amaryl - PO 3 mg DAILY@0700 DEANNA Administration Heparin Sodium (Porcine) 5,000 unit 05/20/16 22:00 05/22/16 10:01 Heparin - SQ 5,000 unit BID DEANNA Administration Insulin Aspart 1 vial 05/20/16 16:30 05/22/16 12:09 Novolog Vial Sliding Scale - SQ Not Given [facility] Protocol Nebivolol 2.5 mg 05/21/16 22:00 05/22/16 10:01 Bystolic - PO 2.5 mg BID DEANNA Administration Rosuvastatin Calcium 20 mg 05/20/16 22:00 05/21/16 21:31 Crestor - PO Not Given HS DEANNA Sitagliptin Phosphate 25 mg 05/22/16 07:00 05/22/16 06:16 Januvia - PO 25 mg DAILY@0700 DEANNA Administration Valsartan 40 mg 05/20/16 10:00 05/22/16 10:01 Diovan - PO 40 mg DAILY DEANNA Administration ASSESSMENT AND PLAN: Patient is a 56 year old female with PMHx of COPD and CHF s/p CABG x (4 vessels ) recently , who presents to the emergency department with shortness of breath, cough and bilateral ankle edema. # Acute systolic Congestive heart failure with EJF 31% with 4 vessel disease s/ p CaBG, echo result reviewed ;CE were negative, switched to po lasix 20mg daily Improved LE edema as well, follow with Cardiology in a week as well.Started patient on Bystolic with caution. # HTN controlled continue meds # LE edema improved on PO lasix # ARF will monitor closely, on consult. Kidney US/Bladder US negative ;BUN 38/2.3 follow with in a week avoid nsaids, caution with arb, monitor lytes and license distributor LDL ;goal is 70 .started statin # T2DM continue Amaryl and Januvia(added new) will follow with seen him in the past. follow with , and Problem List - Problems (1) CHF (congestive heart failure) Code(s): I50.9 - HEART FAILURE, UNSPECIFIED Qualifiers: Congestive heart failure type: unspecified congestive heart failure type Congestive heart failure chronicity: acute on chronic Qualified Code(s ): I50.9 - Heart failure, unspecified (2) Diabetes mellitus, insulin dependent (IDDM), uncontrolled Code(s): E10.65 - TYPE 1 DIABETES MELLITUS WITH HYPERGLYCEMIA Qualifiers: Diabetes mellitus complication status: with kidney complications Diabetes mellitus complication detail: with chronic kidney disease Chronic kidney disease stage: stage 3 (moderate) Qualified Code(s): E10.22 - Type 1 diabetes mellitus with diabetic chronic kidney disease; E10.65 - Type 1 diabetes mellitus with hyperglycemia; N18.1 - Chronic kidney disease, stage 1 (3) Dyspnea Code(s): R06.00 - DYSPNEA, UNSPECIFIED (4) Acute renal failure Code(s): N17.9 - ACUTE KIDNEY FAILURE, UNSPECIFIED
[2016-05-22 20:13] VITALS: BP 134/77; PULSE 70; TEMP 98
== END 2016-05-22 17:23 | disposition home or self-care (01) | DRG 291 ==
LOC: JER 11:27 → JERBED 15:36 → UNDOADMIN 15:36 → JERBED 17:13 → J4W 20:08
PROVIDERS: ADMIT Internal Medicine; ATTEND Internal Medicine
DX: I13.0 Hypertensive heart and chronic kidney disease with heart failure and stage 1 through stage 4 chronic kidney disease, or unspecified chronic kidney disease (principal); I50.23 Acute on chronic systolic (congestive) heart failure; N17.9 Acute kidney failure, unspecified; E10.65 Type 1 diabetes mellitus with hyperglycemia; Z79.4 Long term (current) use of insulin; I25.119 Atherosclerotic heart disease of native coronary artery with unspecified angina pectoris; Z95.1 Presence of aortocoronary bypass graft; E78.5 Hyperlipidemia, unspecified; I25.5 Ischemic cardiomyopathy; N18.9 Chronic kidney disease, unspecified
CPT/HCPCS: 36415; 71010-TC; 76775-TC; 76856-TC; 80048; 80053; 80061; 81003; 81015; 82436; 82550; 82570; 82728; 83036; 83540; 83550; 83721; 83735; 83880; 84100; 84133; 84156; 84300; 84439; 84443; 84466; 84484; 84540; 85025; 85610; 93005; 93010; 93306-TC; 99283-25; J1644

== ENCOUNTER 2019-02-16 08:00 | Day surgery (SDC) | payer BC, OTHER ==
[2019-02-03 17:24] VITALS: BMI 25.0
[2019-02-16] MEDS ORDERED: CYCLOPENTOLATE 2% OPHTH SOLN 2 ML BOTTLE ONE (08:16)
[2019-02-16] MEDS ORDERED: PHENYLEPHRINE 2.5% OPHTH SOLN 15 ML BOTTLE ONE (08:16)
[2019-02-16] MEDS ORDERED: CIPROFLOXACIN 0.3% EYE DROPS 5 ML BOTTLE ONE (08:16)
[2019-02-16] MEDS ORDERED: TROPICAMIDE 1% OPHTH SOLN 15 ML BOTTLE ONE (08:16)
[2019-02-16] MEDS ORDERED: TETRACAINE 0.5% OPHTH SOLN 2 ML BOTTLE ONE (10:08)
[2019-02-16] MEDS ORDERED: LIDOCAINE 1% P/F 10 MG/ML VIAL ONE (10:08)
[2019-02-16] MEDS ORDERED: NEO/POLYMYX B SULF/DEXAMETH OPHTHALMIC 5ML BOTTLE ONE (10:09)
[2019-02-16] MEDS ORDERED: BSS (NA/CA/MG/K) BALANCED SALT SOLUTION OPHTH SOLN 15 ML BOTTLE ONE (10:09)
[2019-02-16] MEDS ORDERED: CARBACHOL 0.01% INTRA-OCULAR 1.5 ML VIAL ONE (10:09)
[2019-02-16] MEDS ORDERED: MIDAZOLAM HCL 2 MG/2 ML SINGLE DOSE VIAL ONE (10:23)
[2019-02-16 11:14] VITALS: BP 121/79; PULSE 85; TEMP 98
--- NOTE | 2019-02-16 12:45 | OP ---
DATE OF OPERATION: 02/16/2019 OPERATIVE PROCEDURE: Lens phacoemulsification with posterior chamber intraocular lens placement, right eye. PREOPERATIVE DIAGNOSIS: Visually significant cataract of right eye. POSTOPERATIVE DIAGNOSIS: Visually significant cataract of right eye. SURGEON: Sina Kim MD ANESTHESIA: MAC. PROCEDURE: The patient was brought to the operating room and placed under monitored anesthesia care by Anesthesia. A drop of tetracaine was then placed over the right eye. The patient was then prepped and draped in the usual sterile manner. A speculum was then placed over the right eye. The eye was then well irrigated with copious amounts of BSS (balanced salt solution). The operating microscope was then moved into position. A paracentesis was performed using a 15-degree blade. At this point 0.5 mL of 1% preservative-free lidocaine was injected into the anterior chamber. Amvisc Plus was then injected into the anterior chamber. A clear corneal incision was then formed using a 2.2-mm keratome. A capsulorrhexis was then performed in a continuous circular fashion beginning with a cystotome completed with an Utratas forceps. Hydrodissection was then performed using BSS on a cannula. The phaco probe was then introduced through the corneal wound and the cataract was removed using the phaco chop technique. Approximately 3 seconds of absolute phaco time was used. The remaining cortex was then removed using irrigation and aspiration with an I/A probe. The capsule was then filled with regular Amvisc and the capsule was noted to be intact. A previously selected foldable posterior chamber intraocular lens was then injected into the capsule through the corneal wound using a lens injector. It was then dialed into position using a Sinskey hook. The Amvisc was then removed using irrigation and aspiration. Miostat was then injected through the paracentesis to constrict the pupil. The paracentesis and corneal wound were then hydrated and noted to be watertight. A drop of Maxitrol was then placed over the eye. The speculum was removed and clear shield was taped over the eye. The patient tolerated the procedure well and there were no surgical complications. The patient was asked to follow up in my office the next day. SINA KIM M.D. JENI/[id number]
== END 2019-02-16 11:41 | disposition home or self-care (01) ==
LOC: FASU 08:00
PROVIDERS: ATTEND Ophthalmology
PROC: 08RJ3JZ Replacement of Right Lens with Synthetic Substitute, Percutaneous Approach (ICD-10-PCS; principal; 2019-02-16 10:27)
DX: H26.8 Other specified cataract (principal)
CPT/HCPCS: 82962

== ENCOUNTER 2019-03-02 08:24 | Day surgery (SDC) | payer OTHER ==
[2019-02-28 14:44] VITALS: BMI 25.0
[2019-03-02] MEDS: PHENYLEPHRINE 2.5% OPHTH SOLN 15 ML BOTTLE ONE ×3 (09:00→09:10)
[2019-03-02] MEDS: CYCLOPENTOLATE 2% OPHTH SOLN 2 ML BOTTLE ONE ×3 (09:00→09:10)
[2019-03-02] MEDS: CIPROFLOXACIN 0.3% EYE DROPS 5 ML BOTTLE ONE ×3 (09:00→09:10)
[2019-03-02] MEDS: TROPICAMIDE 1% OPHTH SOLN 15 ML BOTTLE ONE ×3 (09:00→09:10)
[2019-03-02] MEDS ORDERED: DEXTROSE 5%-0.45% SALINE 1,000 ML IV SCH (09:45)
[2019-03-02] MEDS ORDERED: MIDAZOLAM HCL 2 MG/2 ML SINGLE DOSE VIAL ONE (10:42)
[2019-03-02] MEDS ORDERED: BSS (NA/CA/MG/K) BALANCED SALT SOLUTION OPHTH SOLN 15 ML BOTTLE ONE (10:43)
[2019-03-02] MEDS ORDERED: CARBACHOL 0.01% INTRA-OCULAR 1.5 ML VIAL ONE (10:43)
[2019-03-02] MEDS ORDERED: NEO/POLYMYX B SULF/DEXAMETH OPHTHALMIC 5ML BOTTLE ONE (10:44)
[2019-03-02] MEDS ORDERED: LIDOCAINE 1% P/F 10 MG/ML VIAL ONE (10:47)
[2019-03-02] MEDS ORDERED: ACETAMINOPHEN 325 MG TABLET (FP) ONE (11:21)
[2019-03-02 11:32] VITALS: PULSE 74; TEMP 98.3
[2019-03-02 12:25] VITALS: BP 131/56
[2019-03-02] MEDS ORDERED: LACTATED RINGERS SOLUTION 1,000 ML IV SCH (14:45)
[2019-03-02] MEDS ORDERED: ONDANSETRON 4 MG/2 ML VIAL IVPUSH PRN (14:45)
[2019-03-02] MEDS ORDERED: ACETAMINOPHEN 325 MG TABLET (FP) PO PRN (14:45)
--- NOTE | 2019-03-07 15:54 | OP ---
DATE OF OPERATION: 03/02/2019 OPERATIVE PROCEDURE: Lens Phacoemulsification with Posterior Chamber Intraocular Lens Placement Left Eye PREOPERATIVE DIAGNOSIS: Visually Significant Cataract of Left Eye POSTOPERATIVE DIAGNOSIS: Visually Significant Cataract of Left Eye SURGEON: Sina Kim MD ANESTHESIA: MAC ANESTHESIOLOGIST: PROCEDURE: The patient was brought to the operating room and placed under monitored anesthesia care by Anesthesia. A drop of Tetracaine was then placed over the left eye. The patient was then prepped and draped in the usual sterile manner. A speculum was then placed over the left eye. The eye was then well irrigated with copious amounts of BSS (balanced salt solution). The operating microscope was then moved into position. A paracentesis was performed using a 15 degree blade. At this point 0.5 mL of 1% preservative-free lidocaine was injected into the anterior chamber. Amvisc plus was then injected into the anterior chamber. A clear corneal incision was then formed using a 2.2 mm keratome. A capsulorrhexis was then performed in a continuous circular fashion beginning with a cystotome, completed with an Utratas forceps. Hydrodissection was then performed using BSS on a cannula. The phaco probe was then introduced through the corneal wound and the cataract was removed using the phaco chop technique. Approximately 3 seconds of absolute phaco time was used. The remaining cortex was then removed using irrigation and aspiration with an I/A probe. The capsule was then filled with regular Amvisc and the capsule was noted to be intact. A previously selected foldable posterior chamber intraocular lens was then injected into the capsule through the corneal wound using a lens injector. It was then dialed into position using a Sinskey hook. The Amvisc was then removed using irrigation and aspiration. Miostat was then injected through the paracentesis to constrict the pupil. The paracentesis and corneal wound were then hydrated and noted to be watertight. A drop of Maxitrol was then placed over the eye. The speculum was removed and clear shield was taped over the eye. The patient tolerated the procedure well and there were no surgical complications. The patient was asked to follow up in my office the next day. SINA KIM M.D. JENI/[id number]
== END 2019-03-02 12:10 | disposition home or self-care (01) ==
LOC: FASU 08:24
PROVIDERS: ATTEND Ophthalmology
PROC: 08RK3JZ Replacement of Left Lens with Synthetic Substitute, Percutaneous Approach (ICD-10-PCS; principal; 2019-03-02 11:02)
DX: H26.8 Other specified cataract (principal)
CPT/HCPCS: 82962

== ENCOUNTER 2019-03-22 17:42 | Inpatient (IN) | payer OTHER ==
--- NOTE | 2019-03-22 17:55 | PDOC ---
Rapid Medical Evaluation Time Seen by Provider: 03/22/19 17:52 Medical Evaluation: Allergies Allergy/AdvReac Type Severity Reaction Status Date / Time Penicillins Allergy Severe RESPIRATORY Verified 03/02/19 09:24 DISTRESS prednisone Allergy Severe SEVERE EYE Verified 03/02/19 09:24 BURNING BETA BLOCKERS Allergy Severe SEVERE Uncoded 03/02/19 09:25 HYPOTENSION 03/22/19 17:52 CC: SOB PE: MM pallor. Lungs CTAB. 2+ LLE edema Orders: cardiac w/u The patient will proceed to the ER for continued Evaluation. Discharge Disposition - Diagnosis Dyspnea - Referrals - Patient Instructions - Post Discharge Activity
[2019-03-22 18:33] LABS: BASO % 1.8 % (0-2.0); EOS % 3.4 % (0-4.5); HEMATOCRIT 29.4 % (32.4-45.2); HEMOGLOBIN 9.1 GM/dL (10.7-15.3); LYMPH % 11.3 % (8-40); MCH 29.6 pg (25.7-33.7); MCHC 31.1 g/dl (32.0-36.0); MEAN CELL VOLUME 95.1 fl (80-96); MEAN PLT VOLUME 8.3 fl (7.5-11.1); MONO % 12.3 % (3.8-10.2); NEUT % 71.2 % (42.8-82.8); PLATELET COUNT 144 K/MM3 (134-434); RBC 3.09 M/mm3 (3.60-5.2); RDW 20.5 % (11.6-15.6); WHITE BLOOD COUNT 7.7 K/mm3 (4.0-10.0)
--- NOTE | 2019-03-22 18:38 | PDOC ---
History of Present Illness - General Chief Complaint: Shortness of Breath Stated Complaint: SOB Time Seen by Provider: 03/22/19 17:52 - History of Present Illness Initial Comments: 03/22/19 20:12 58 year old woman with a history of COPD and CHF s/p CABG x (4 vessels) who presents from ophthalmologists office after she was noted to be short of breath. The patient reports that she has been short of breath for several days and has had L ankle swelling for several days. She only endorses taking ASA but denies any other blood thinner. She reports she has had some cough over the past few days but denies chest pain, abdominal pain, nausea, vomiting, diarrhea or constipation. She denies dysuria or hematuria. She has no other complaints. ROS GENERAL/CONSTITUTIONAL: No fever or chills. No weakness. HEAD, EYES, EARS, NOSE AND THROAT: No change in vision.No sore throat. CARDIOVASCULAR: No chest pain + shortness of breath RESPIRATORY: + cough, wheezing, or hemoptysis. GASTROINTESTINAL: No nausea, vomiting, diarrhea or constipation. GENITOURINARY: No dysuria, frequency, or change in urination. MUSCULOSKELETAL: No joint or muscle swelling or pain. No neck or back pain. SKIN: No rash PE GENERAL: Awake, alert, and fully oriented, in no acute distress HEAD: No signs of trauma, normocephalic, atraumatic EYES: L dilated (at ophtho office) EOMI, sclera anicteric, conjunctiva clear ENT: oropharynx clear without exudates. Moist mucosa NECK: Normal ROM, supple LUNGS: No distress, speaks full sentences, clear to auscultation bilaterally HEART: Regular rate and rhythm, normal S1 and S2, no murmurs, rubs or gallops, peripheral pulses normal and equal bilaterally. ABDOMEN: Soft, nontender, No guarding, no rebound. No masses EXTREMITIES : Normal inspection, + L ankle 2+ pitting edema NEUROLOGICAL: Cranial nerves II through XII grossly intact. Normal speech, no focal sensorimotor deficits SKIN: Warm, Dry, normal turgor MDM DDX including but not limited to: CHF exacerbation COPD exacerb r/o DVT/ PE ED Course: labs with significant YVES and tropinemia Dr. Duran called, agrees to admission and will see patient does not recommend fluids or diuresis likely will dialyze in the AM ekg: nsr 88bpm, T wave inversion in 1 and v6 cxr with cardiomegaly, otherwise no acute pathology case discussed with inpatient team agrees to admission recommends ICU consult, case discussed with ICU resident Plan for admission Kate Rivera PGY2 Emergency Medicine Past History - Past Medical History Allergies/Adverse Reactions: Allergies Allergy/AdvReac Type Severity Reaction Status Date / Time Penicillins Allergy Severe RESPIRATORY Verified 03/23/19 18:18 DISTRESS prednisone AdvReac Severe disorientat Verified 03/23/19 18:18 ion gluten AdvReac Verified 03/26/19 09:04 morphine AdvReac disorientat Verified 03/23/19 18:18 ion BETA BLOCKERS Allergy Severe SEVERE Uncoded 03/22/19 17:55 HYPOTENSION Home Medications: Ambulatory Orders Aspirin Coated [Ecotrin -] 81 mg PO DAILY #30 tablet.ec 05/22/16 Glimepiride [Amaryl -] 3 mg PO DAILY@0700 #30 tablet 05/22/16 Cetirizine HCl [Zyrtec -] 10 mg PO HS 02/03/19 Fluticasone Prop 0.05% Nasal [Flonase -] 1 - 2 spray NS DAILY 02/03/19 Aspirin Coated [Ecotrin -] 81 mg PO DAILY tablet.ec 03/31/19 Bacitracin - [Bacitracin Topical Ointment -] 1 applic TP DAILY tube 03/31/19 Calcium Acetate [Phoslo -] 1,334 mg PO TIDCM #180 capsule 03/31/19 Ferrous Sulfate [Feosol] 325 mg PO DAILY ud 03/31/19 Isosorbide Mononitrate [Imdur -] 30 mg PO DAILY #90 tab.sr.24h 03/31/19 Pramoxine HCl/Calamine [Caladryl -] 1 applic TP BID #0 bottle 03/31/19 Ropinirole HCl [Requip -] 0.5 mg PO HS #30 tablet 03/31/19 Anemia: No Asthma: No Cancer: No Cardiac Disorders: Yes (CAD) CVA: No COPD: No CHF: No Dementia: No Diabetes: Yes (x4 yrs ago) GI Disorders: No Disorders: No HTN: Yes Hypercholesterolemia: Yes Liver Disease: No Seizures: No Thyroid Disease: No - Surgical History Abdominal Surgery: No Appendectomy: No Cardiac Surgery: Yes (CABG 02/2015) Cholecystectomy: No Lung Surgery: No Neurologic Surgery: No Orthopedic Surgery: No - Immunization History Immunization Up to Date: No - Psycho Social/Smoking Cessation Hx Smoking Status: No Smoking History: Never smoked Have you smoked in the past 12 months: No Number of Cigarettes Smoked Daily: 0 If you are a former smoker, when did you quit?: 18 yrs ago Hx Alcohol Use: No Drug/Substance Use Hx: No Substance Use Type: None Hx Substance Use Treatment: No *Physical Exam - Vital Signs Last Vital Signs Temp Pulse Resp BP Pulse Ox 97.3 F L 87 18 136/64 96 03/22/19 17:52 03/22/19 17:52 03/22/19 17:52 03/22/19 17:52 03/22/19 17:52 ED Treatment Course - LABORATORY CBC & Chemistry Diagram: 03/31/19 08:50 03/31/19 08:50 Discharge - Discharge Information Problems reviewed: Yes Clinical Impression/Diagnosis: Dyspnea Condition: Improved - Follow up/Referral - Patient Discharge Instructions - Post Discharge Activity
[2019-03-22 18:56] LABS: INR 1.44 (0.83-1.09); PROTHROMBIN TIME (PATIENT) 17.1 SEC (9.7-13.0)
[2019-03-22 19:24] LABS: ALBUMIN 3.5 g/dl (3.4-5.0); ALK PHOS 99 U/L (45-117); ANION GAP 15 MMOL/L (8-16); BILIRUBIN,TOTAL 0.7 mg/dL (0.2-1); CHLORIDE 113 mmol/L (98-107); CO2 14 mmol/L (21-32); GLUCOSE,RANDOM 150 mg/dL (74-106); POTASSIUM 4.5 mmol/L (3.5-5.1); SGOT/AST 7 U/L (15-37); SGPT/ALT 20 U/L (13-61); SODIUM 142 mmol/L (136-145); TOT PROT 6.2 g/dl (6.4-8.2)
[2019-03-22 19:30] LABS: CALCIUM 6.7 mg/dL (8.5-10.1)
[2019-03-22 19:31] LABS: BLOOD UREA NITROGEN 123.2 mg/dL (7-18); CREATININE 8.8 mg/dL (0.55-1.3)
--- NOTE | 2019-03-22 19:47 | PDOC ---
Attending Attestation - Resident Resident Name: Kate Rivera - ED Attending Attestation I have performed the following: I have examined & evaluated the patient, The case was reviewed & discussed with the resident, I agree w/resident's findings & plan - HPI HPI: 03/22/19 20:59 see resident hpi - Physicial Exam PE: 03/22/19 20:59 agree with resident exam - Medical Decision Making 03/22/19 20:59 58-year-old female with acute on chronic renal failure and fluid overload Potassium is within normal limits Chest x-ray shows cardiomegaly with no obvious interstitial edema Case discussed with nephrology who recommends admission, no diuresis at this time, will consider for dialysis tomorrow Patient will be admitted to telemetry service
[2019-03-22 20:15] LABS: N-TERMINAL BNP > 35000.0 pg/ml (5-125)
[2019-03-22 20:57] LABS: ANISOCYTOSIS 1+
--- NOTE | 2019-03-22 21:19 | PN ---
Teaching Attending Note Name of Resident: Lina Morgan ATTENDING PHYSICIAN STATEMENT I saw and evaluated the patient. I reviewed the resident's note and discussed the case with the resident. I agree with the resident's findings and plan as documented. SUBJECTIVE: 50-year-old woman with a history of COPD and CHF with severe systolic dysfunction and hypokinesis status post CABG (4 vessels) was sent from ophthalmology office after she was noted to be short of breath. She complained of shortness of breath for the past several days. She also endorsed pruritic rash on chest abdomen and extremities which she has had for about 2 weeks. She denied taking any excessive amounts of NSAIDs only daily aspirin. She reports normal urination and no changes to urine color. Case was discussed with Dr. Hill. OBJECTIVE: Last Vital Signs Temp Pulse Resp BP Pulse Ox 97.4 F L 85 16 139/94 100 03/22/19 19:15 03/22/19 19:15 03/22/19 19:15 03/22/19 19:15 03/22/19 19:15 GENERAL: Well developed, well nourished. Awake and alert. No acute distress. HEENT: Normocephalic, atraumatic. PERRLA, EOMI. No conjunctival pallor. Sclera are non- icteric. Moist mucous membranes. Oropharynx is clear. NECK: Supple. Full ROM. No JVD. Carotid pulses 2+ and symmetric, without bruits. No thyromegaly. No lymphadenopathy. CARDIOVASCULAR: Regular rate and rhythm. No murmurs, rubs, or gallops. Distal pulses are 2+ and symmetric. Scar on anterior wall status post CABG PULMONARY: No evidence of respiratory distress. Lungs clear to auscultation bilaterally. No wheezing, rales or rhonchi. ABDOMINAL: Soft. Non-tender. Non-distended. No rebound or guarding. No organomegaly. Normoactive bowel sounds. MUSCULOSKELETAL Normal range of motion at all joints. No bony deformities or tenderness. No CVA tenderness. EXTREMITIES: No cyanosis. No clubbing. No edema. No calf tenderness. SKIN: Pruritic rash on back upper extremities and chest noted to have scabbing likely from scratching NEUROLOGICAL: Alert, awake, appropriate. Oriented to person place and time PSYCHIATRIC: Cooperative. Good eye contact. Appropriate mood and affect. Abnormal Lab Results 03/22/19 03/22/19 03/22/19 18:11 18:11 18:11 RBC 3.09 L Hgb 9.1 L Hct 29.4 L MCHC 31.1 L RDW 20.5 H Monocytes % 12.3 H PT with INR 17.10 H INR 1.44 H D-Dimer Chloride 113 H Carbon Dioxide 14 L BUN 123.2 H* Creatinine 8.8 H* Random Glucose 150 H Serum Osmolality 348 H Calcium 6.7 L* AST 7 L Creatine Kinase Index 7.6 H CK-MB (CK-2) 14.2 H Troponin I 0.15 H B-Natriuretic Peptide > 08837.0 H Total Protein 6.2 L 03/22/19 21:30 RBC Hgb Hct MCHC RDW Monocytes % PT with INR INR D-Dimer 1151 H Chloride Carbon Dioxide BUN Creatinine Random Glucose Serum Osmolality Calcium AST Creatine Kinase Index CK-MB (CK-2) Troponin I B-Natriuretic Peptide Total Protein Imaging reviewed EKG reviewed ASSESSMENT AND PLAN: 58-year-old woman with acute renal failure secondary to unknown cause. Metabolic acidosis evidenced by low sodium bicarb. Mentating well. Renal ultrasound did not show any evidence of hydronephrosis and do not suspect post renal cause at this time.Suspect that patient's rash may be secondary to uremia and extreme pruritus with extensive scratching valdes.Noted to have significant hypocalcemia on labs. Suspect that elevated troponin is likely secondary to acute renal failure.Would trend troponin given shortness of breath in the high cardiac risk given patient's past CABG and CHF history. Severe normocytic anemia may be multifactorial but also may be secondary to underlying renal failure. Extremely elevated BNP however patient does not look significantly fluid overloaded on exam except for bilateral pedal edema. Although d-dimer was elevated, do not have a high suspicion for PE at this time as Wells score for PE was calculated to be 0. Admit to telemetry Trend troponins, if significant elevation would treat for NSTEMI Strict I's and O's Daily weights Cazares catheter Renal consult Cardiology consult Vascular consult for Shiley catheter placement Transthoracic echo Avoid nephrotoxins including NSAIDs Urine sodium and creatinine to calculate FENa Urine eosinophils Urine osmole Serum osmolarity Repeat PT and PTT Type and screen Send lactate Benadryl p.o. as needed for pruritus Supplement calcium Calcitriol, sodium bicarb Recheck chemistry and magnesium and phosphate and replete electrolytes PRN DVT prophylaxis with heparin subcu
[2019-03-22] MEDS ORDERED: CALCIUM GLUCONATE 10% - 1,000 MG/10 ML VIAL IVPB ONE (22:14)
[2019-03-22] MEDS ORDERED: SODIUM CHLORIDE 500 ML IV STA (22:14)
[2019-03-22] MEDS ORDERED: CALCIUM GLUCONATE 10% - 1,000 MG/10 ML VIAL ONE (22:20)
[2019-03-22 22:57] LABS: OSMOLALITY,SERUM 348 mosm/kg (278-305)
[2019-03-22 23:12] LABS: PHOSPHOROUS 11.6 mg/dL (2.5-4.9)
--- NOTE | 2019-03-22 23:16 | HP ---
CHIEF COMPLAINT: SOB PCP: doesn't currently have one HISTORY OF PRESENT ILLNESS: Pt is a 58 y/o F w/ pmhx of DM retinopathy, DM, COPD, CAD s/p CABG (4 vessel, 2014) and CHF presenting to ED complaining of SOB and fatigue which began this morning. While at the online marketing specialist's office, her doctor became concerned about her breathing and appearance. He contacted her gel coater, Dr. Morales, who advised her to go to ED for an evaluation. Pt also complaining of fever, chills, seasonal allergies, numbness and tingling on her feet, and widespread rash with puritis. Two weeks ago, the rash first appeared on her abdomen and then spread outward to other areas of her body including her back and extremities. She reports that before the rash appeared she was scratched on her left thigh by her cat. She states her cat is a house cat and does not go outside. Pt denies SWENSON, chest pain, neck pain, N/V, Abd pain, cough, diziness or urinary changes. Pt reports her son had a cold recently. Pt got an ECHO and Stress test in August at her gel coater's office and she says the results were normal. 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 Residence: Lives with children Allergies: Penicillin (Rx: Hives, difficulty breathing), Prednisone, Morphine ( vomiting, loopy), Phenobarbital Penicillins Allergy (Severe, Verified 03/22/19 17:55) RESPIRATORY DISTRESS prednisone Allergy (Severe, Verified 03/22/19 17:55) SEVERE EYE BURNING EYE DROPS BETA BLOCKERS Allergy (Severe, Uncoded 03/22/19 17:55) SEVERE HYPOTENSION HOME MEDICATIONS: Home Medications Medication Instructions Recorded Aspirin Coated [Ecotrin -] 81 mg PO DAILY #30 tablet.ec 05/22/16 Furosemide [Lasix -] 20 mg PO DAILY #30 tablet 05/22/16 Glimepiride [Amaryl -] 3 mg PO DAILY@0700 #30 tablet 05/22/16 Cetirizine HCl [Zyrtec -] 10 mg PO HS 02/03/19 Fluticasone Prop 0.05% Nasal 1 - 2 spray NS DAILY 02/03/19 [Flonase -] Losartan Potassium [Cozaar -] 50 mg PO DAILY 02/03/19 REVIEW OF SYSTEMS CONSTITUTIONAL: fever, chills, malaise, Absent: diaphoresis, generalized weakness, loss of appetite, weight change HEENT: Absent: rhinorrhea, nasal congestion, throat pain, throat swelling, difficulty swallowing, mouth swelling, ear pain, eye pain, visual changes CARDIOVASCULAR: Absent: chest pain, syncope, palpitations, irregular heart rate, lightheadedness , peripheral edema RESPIRATORY: shortness of breath, Absent: cough, dyspnea with exertion, orthopnea, wheezing, stridor, hemoptysis GASTROINTESTINAL: Absent: abdominal pain, abdominal distension, nausea, vomiting, diarrhea, constipation, melena, hematochezia GENITOURINARY: Absent: dysuria, frequency, urgency, hesitancy, hematuria, flank pain, genital pain MUSCULOSKELETAL: Absent: myalgia, arthralgia, joint swelling, back pain, neck pain SKIN: rash, itching, Absent: pallor HEMATOLOGIC/IMMUNOLOGIC: Absent: easy bleeding, easy bruising, lymphadenopathy, frequent infections ENDOCRINE: Absent: unexplained weight gain, unexplained weight loss, heat intolerance, cold intolerance NEUROLOGIC: numbness/ tingling in feet Absent: headache, focal weakness or paresthesias, dizziness, unsteady gait, seizure, mental status changes, bladder or bowel incontinence PSYCHIATRIC: Absent: anxiety, depression, suicidal or homicidal ideation, hallucinations. PHYSICAL EXAMINATION Vital Signs - 24 hr 03/22/19 03/22/19 17:52 19:15 Temperature 97.3 F L 97.4 F L Pulse Rate 87 85 Pulse Rate [ 85 Right Radial] Respiratory 18 16 Rate Blood Pressure 136/64 Blood Pressure 139/94 [Left Arm] O2 Sat by Pulse 96 100 Oximetry (%) GENERAL: Awake, alert, and fully oriented, in no acute distress. HEAD: Normal with no signs of trauma. EYES: Pupils equal, round and reactive to light, extraocular movements intact, sclera anicteric, conjunctiva clear. No lid lag. EARS, NOSE, THROAT: Ears normal, nares patent, oropharynx clear without exudates. Moist mucous membranes. NECK: Normal range of motion, supple without lymphadenopathy, JVD, or masses. LUNGS: Breath sounds equal, clear to auscultation bilaterally. No wheezes, and no crackles. No accessory muscle use. HEART: Regular rate and rhythm, normal S1 and S2. 3/6 holosystolic murmur heard loudest at L sternal border. ABDOMEN: Soft, nontender, not distended, normoactive bowel sounds, no guarding, no rebound, no masses. No hepatomegaly or splenomegaly. MUSCULOSKELETAL: Normal range of motion at all joints. No bony deformities or tenderness. No CVA tenderness. No palpable LN in axilla, head/neck, groin, or poploteal fossa. UPPER EXTREMITIES: 2+ pulses, warm, well-perfused. No cyanosis. No clubbing. No peripheral edema. LOWER EXTREMITIES: 2+ pulses, warm, well-perfused. No calf tenderness. 1+ pitting edema to the knee on L leg, trace edema to the knee on R leg. NEUROLOGICAL: Cranial nerves II-XII intact. Normal speech. PSYCHIATRIC: Cooperative. Good eye contact. Appropriate mood and affect. SKIN: Warm, dry, normal turgor, normal capillary refill. Erythematous papular rash with excoriation valdes and scabs, circular in shape on the trunk and extremities. Each leason measuring about 1cm or less, often appearing in rows. Laboratory Results - last 24 hr 03/22/19 03/22/19 03/22/19 18:11 18:11 18:11 WBC 7.7 RBC 3.09 L Hgb 9.1 L Hct 29.4 L MCV 95.1 MCH 29.6 MCHC 31.1 L RDW 20.5 H Plt Count 144 D MPV 8.3 Absolute Neuts (auto) 5.5 Neutrophils % 71.2 Lymphocytes % 11.3 D Monocytes % 12.3 H Eosinophils % 3.4 Basophils % 1.8 Nucleated RBC % 0 Anisocytosis 1+ PT with INR 17.10 H INR 1.44 H PTT (Actin FS) 33.0 D-Dimer Sodium 142 Potassium 4.5 Chloride 113 H Carbon Dioxide 14 L Anion Gap 15 BUN 123.2 H* Creatinine 8.8 H* Est GFR (CKD-EPI)AfAm 5.19 Est GFR (CKD-EPI)NonAf 4.48 POC Glucometer Random Glucose 150 H Serum Osmolality 348 H Calcium 6.7 L* Magnesium 2.0 Total Bilirubin 0.7 AST 7 L ALT 20 Alkaline Phosphatase 99 Creatine Kinase 186 Creatine Kinase Index 7.6 H CK-MB (CK-2) 14.2 H Troponin I 0.15 H B-Natriuretic Peptide > 51877.0 H Total Protein 6.2 L Albumin 3.5 03/22/19 03/22/19 19:18 21:30 WBC RBC Hgb Hct MCV MCH MCHC RDW Plt Count MPV Absolute Neuts (auto) Neutrophils % Lymphocytes % Monocytes % Eosinophils % Basophils % Nucleated RBC % Anisocytosis PT with INR INR PTT (Actin FS) D-Dimer 1151 H Sodium Potassium Chloride Carbon Dioxide Anion Gap BUN Creatinine Est GFR (CKD-EPI)AfAm Est GFR (CKD-EPI)NonAf POC Glucometer 138 Random Glucose Serum Osmolality Calcium Magnesium Total Bilirubin AST ALT Alkaline Phosphatase Creatine Kinase Creatine Kinase Index CK-MB (CK-2) Troponin I B-Natriuretic Peptide Total Protein Albumin ASSESSMENT/PLAN: Pt is a 58 y/o F w/ pmhx of DM retinopathy, DM, COPD, CAD s/p CABG (2014) and CHF presenting to ED complaining of SOB and fatigue which began this morning. # Renal Failure- Pt does not endorse hx of CKD or renal failure, currently does not follow with a health unit coordinator. States she only sees an online marketing specialist and gel coater and she things the gel coater clerical car checker her labs, she last saw him ~6mo ago. Pt found to have BUN/Cr elevated since previous admission (123.2/8.8) . Pt also has metabolic acidosis (HCO3 14). Pt is currently mentating well. - Renal u/s without evidence of hydronephrosis, do not suspect post renal cause at this time - Cazares catheter - Renal consult, Dr. Pond, appreciate recommendations - Vascular consult, Dr. Giraldo, for Shiley catheter placement - Avoid nephrotoxins including NSAIDs - Urine sodium and creatinine to calculate FENa - Urine eosinophils - Urine osmole - Serum osmolarity - Repeat PT and PTT - Type and screen - Send lactate # Elevated Troponin - 0.15, may be 2/2 acute renal failure. - trend troponin given shortness of breath and high cardiac risk given patient' s past CABG and CHF history. - if significant elevation would treat for NSTEMI # hypocalcemia, hyperphosphatemia - 2/2 renal failure - Ca gluconate 1000mg IVPB once - Calcitriol 0.25mcg PO once - Phoslo - 2 tabs w/ meals - Calcium 500mg/ Vit D 200u 2 tabs daily - follow CMP, mag phos daily - replete lytes PRN # Rash - May be 2/2 uremia and extreme pruritus. - Benadryl p.o. as needed for pruritus - Supplement calcium - Calcitriol, sodium bicarb - Recheck chemistry and magnesium and phosphate and replete electrolytes PRN # Hx of CHF - pt has hx of CHF and is found to have elevated BNP however patient does not look significantly fluid overloaded on exam. The patient does have bilateral pedal edema L>R, however this is where veins were harvested for her CABG and the patient reports the edema is chronic and not worse than usual. - no diuresis for now - Strict I's and O's - Daily weights - Cardiology consult, Dr. Sheehan, appreciate recommendations - Transthoracic echo, to r/o tamponade as source of SOB # Other lab derrangements including elevated D-dimer, and normocytic anemia - Severe normocytic anemia may be multifactorial but also may be secondary to underlying renal failure. - Although d-dimer was elevated, do not have a high suspicion for PE at this time as Wells score for PE was calculated to be 0. #FEN No fluids for now replete lytes PRN NPO after midnight incase permacath needs to be placed tomorrow #PPx DVT-heparin SQ TID #Dispo- admit to tele, possibly dialysis in AM Visit type - Emergency Visit Emergency Visit: Yes ED Registration Date: 03/22/19 Care time: The patient presented to the Emergency Department on the above date and was hospitalized for further evaluation of their emergent condition. - New Patient This patient is new to me today: Yes Date on this admission: 03/23/19 - Critical Care Critical Care patient: No ATTENDING PHYSICIAN STATEMENT I saw and evaluated the patient. I reviewed the resident's note and discussed the case with the resident. I agree with the resident's findings and plan as documented. SUBJECTIVE: OBJECTIVE: ASSESSMENT AND PLAN:
--- NOTE | 2019-03-22 23:36 | CONSULT ---
Consult Consult Specialty:: ICU - History of Present Illness History of Present Illness: 58F with a PMH of DM retinopathy, DM, CAD s/p CABG (4 vessel, 2014) and CHF who presents to the ER for worsening SOB and malaise. Pt states that she was at her psychiatric nurse practitioner's office today and mentioned that she hadn't been feeling well recently. He spoke with her digital court reporter who recommended that she come to the ED for evaluation. She denies fever, chills, nausea, vomiting, CP, abd pain but admits to SOB and mild swelling in her L LE which "goes down at night". She also complains of a rash which started 2 weeks ago and is pruritic and spreading. 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 Cardio/Vascular: Yes: CAD Pulmonary: Yes: COPD Endocrine: Yes: Diabetes Mellitus - Past Surgical History Past Surgical History: Yes: Arthrosocopy (Rt knee surgery in her 20s secondary to chrondomalacia), CABG - Alcohol/Substance Use Hx Alcohol Use: No History of Substance Use: reports: None - Smoking History Smoking history: Never smoked Have you smoked in the past 12 months: No Aproximately how many cigarettes per day: 0 If you are a former smoker, when did you quit?: 18 yrs ago - Social History ADL: Independent 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 Home Medications - Allergies Allergies/Adverse Reactions: Allergies Allergy/AdvReac Type Severity Reaction Status Date / Time Penicillins Allergy Severe RESPIRATORY Verified 03/22/19 17:55 DISTRESS prednisone Allergy Severe SEVERE EYE Verified 03/22/19 17:55 BURNING BETA BLOCKERS Allergy Severe SEVERE Uncoded 03/22/19 17:55 HYPOTENSION - Home Medications Home Medications: Ambulatory Orders Aspirin Coated [Ecotrin -] 81 mg PO DAILY #30 tablet.ec 05/22/16 Furosemide [Lasix -] 20 mg PO DAILY #30 tablet 05/22/16 Glimepiride [Amaryl -] 3 mg PO DAILY@0700 #30 tablet 05/22/16 Cetirizine HCl [Zyrtec -] 10 mg PO HS 02/03/19 Fluticasone Prop 0.05% Nasal [Flonase -] 1 - 2 spray NS DAILY 02/03/19 Losartan Potassium [Cozaar -] 50 mg PO DAILY 02/03/19 Review of Systems - Review of Systems Constitutional: denies: Chills, Diaphoresis, Fever Eyes: denies: Blurred Vision, Double Vision Cardiovascular: reports: Edema, Shortness of Breath. denies: Chest Pain, Palpitations Respiratory: reports: Exercise Intolerance, SOB on Exertion. denies: Wheezing Gastrointestinal: denies: Nausea, Vomiting Genitourinary: denies: Dysuria, Flank Pain Musculoskeletal: reports: Other (LE edema) Neurological: denies: Numbness, Weakness Physical Exam Vital Signs: Vital Signs Temperature 97.4 F L 03/22/19 19:15 Pulse Rate 85 03/22/19 19:15 Respiratory Rate 16 03/22/19 19:15 Blood Pressure 139/94 03/22/19 19:15 O2 Sat by Pulse Oximetry (%) 100 03/22/19 19:15 Constitutional: Yes: Well Nourished, No Distress, Anxious HENT: Yes: Atraumatic, Normocephalic Cardiovascular: Yes: Regular Rate and Rhythm, Murmur (Systolic), S1, S2 Respiratory: Yes: Other (Mild rales in b/l lower lung dailey) Gastrointestinal: Yes: Soft. No: Abdomen, Obese, Ascites, Tenderness, Tenderness, Epigastrium, Tenderness, Rebound ...Rectal Exam: Yes: Deferred Musculoskeletal: No: Back Pain Edema: LLE: Trace, RLE: 2+ Integumentary: Yes: Rash (Diffuse scabbed over rash, vesicular, widely distributed throughout body with streaking) Neurological: Yes: WNL, Alert, Oriented Psychiatric: Yes: Other (Slightly tearful) Labs: CBC, BMP 03/22/19 18:11 03/22/19 18:11 Assessment/Plan 58F with a PMH of DM retinopathy, DM, CAD s/p CABG (4 vessel, 2014) and CHF who presents with SOB and LLE edema with new YVES. Cards Acute on chronic CHF - BNP >77832 - Trop 0.15, continue to trend - Defer lasix to nephro as pt has YVES and on home diuretics which may have caused the YVES - CXR unremarkable but shows cardiomegaly - No tamponade on POCUS - Formal ECHO tomorrow Renal New onset YVES - BUN/Cr 123.2/8.8 from Cr of 2.3 in 05/2016 - Nephro on board - Nephro workup in process, possible dialysis tomorrow Pulm Worsening SOB - Concern for cardiac cause - DVT study negative, lower suspicion for PE despite d-dimer elevation - D-dimer likely 2/2 YVES Integumentary Diffuse rash - Derm recs appreciated - No one else in family has rash so less likely scabies but in scabies pattern Neuro/Psych - A&O x 3 - Slightly tearful during evaluation as "a lot is going on" GI - NPO @ midnight for possible procedure tomorrow for dialysis Dispo Pt is currently hemodynamically stable without emergent or urgent concern for respiratory or cardiac compromise. She does not meet criteria for ICU monitoring. If the patient's condition deteriorates, we will evaluate as needed. Thank you for the consultative opportunity.
[2019-03-23] MEDS: CALCIUM 500MG/VIT-D 200 UNITS COMBO TABLET (FP) PO SCH ×2 (00:08→10:01)
[2019-03-23 00:36] LABS: EPI CELLS 14.2 /HPF (0-5/HPF); HYALINE CASTS 30 /lpf (0-8); URINE APPEARANCE TURBID; URINE BACTERIA 407.1 /hpf (NEGATIVE); URINE BILIRUBIN NEGATIVE (NEGATIVE); URINE COLOR YELLOW; URINE GLUCOSE (UA) NEGATIVE (NEGATIVE); URINE KETONE NEGATIVE (NEGATIVE); URINE LEUK ESTERASE 3+ (NEGATIVE); URINE NITRITE NEGATIVE (NEGATIVE); URINE PROTEIN 2+ (NEGATIVE); URINE UROBILINOGEN 0.2 mg/dL (0.2-1.0); URINE WBC 442 /hpf (0-5)
[2019-03-23] MEDS: CALCIUM ACETATE 667 MG CAPSULE (FP) PO SCH ×4 (01:10→17:08)
[2019-03-23] MEDS ORDERED: PT OWN MED DRAWER 7, Y5N ONE ×2 (06:07→21:17)
[2019-03-23] MEDS: HEPARIN NA (PORCINE) 5,000 UNITS/ML 1ML VIAL SQ SCH ×4 (06:26→21:28)
[2019-03-23] MEDS: SODIUM BICARBONATE 650 MG TABLET PO SCH ×3 (06:26→21:28)
[2019-03-23 06:54] LABS: BASO % 1.4 % (0-2.0); EOS % 2.2 % (0-4.5); HEMATOCRIT 27.9 % (32.4-45.2); HEMOGLOBIN 8.9 GM/dL (10.7-15.3); LYMPH % 7.6 % (8-40); MCH 30.3 pg (25.7-33.7); MEAN CELL VOLUME 94.9 fl (80-96); MEAN PLT VOLUME 8.5 fl (7.5-11.1); MONO % 5.7 % (3.8-10.2); NEUT % 83.1 % (42.8-82.8); PLATELET COUNT 139 K/MM3 (134-434); RBC 2.94 M/mm3 (3.60-5.2); RDW 20.5 % (11.6-15.6); WHITE BLOOD COUNT 7.1 K/mm3 (4.0-10.0)
[2019-03-23 07:34] LABS: ALBUMIN 3.3 g/dl (3.4-5.0); ALK PHOS 94 U/L (45-117); ANION GAP 16 MMOL/L (8-16); BILIRUBIN,TOTAL 0.9 mg/dL (0.2-1); CALCIUM 7.6 mg/dL (8.5-10.1); CHLORIDE 113 mmol/L (98-107); CO2 13 mmol/L (21-32); GLUCOSE,RANDOM 96 mg/dL (74-106); POTASSIUM 4.8 mmol/L (3.5-5.1); SGOT/AST 10 U/L (15-37); SGPT/ALT 19 U/L (13-61); SODIUM 143 mmol/L (136-145)
--- NOTE | 2019-03-23 07:34 | PN ---
Progress Note, Physician Chief Complaint: Sitting on edge of bed scratching lesions on legs. Awaiting permacath placement. Pt very tearful during exam. History of Present Illness: 58F with a PMH of DM retinopathy, DM, CAD s/p CABG (4 vessel, 2014) and CHF who presents to the ER for worsening SOB and malaise. Pt states that she was at her bilingual operator's office today and mentioned that she hadn't been feeling well recently. He spoke with her tank tender who recommended that she come to the ED for evaluation. She denies fever, chills, nausea, vomiting, CP, abd pain but admits to SOB and mild swelling in her L LE which "goes down at night". She also complains of a rash which started 2 weeks ago aftwer being scratched by her cat and is pruritic and spreading. ED course notable for: - BUN/Cr 123.1/8.8 - Phos: 11.6 - Ca: 6.7 - Trop 0.15 - BNP: >35,000 - POCUS: No tamponade physiology - Current Medication List Current Medications: Active Medications Calcitriol (Rocaltrol -) 0.25 mcg PO ONCE ONE Stop: 03/23/19 22:47 Calcium Acetate (Phoslo -) 1,334 mg PO TIDCM [facility] Last Admin: 03/23/19 01:10 Dose: 1,334 mg Calcium Carbonate/Cholecalciferol (Os-Lucius 500+D -) 2 tab PO DAILY [facility] Last Admin: 03/23/19 00:08 Dose: 2 tab Heparin Sodium (Porcine) (Heparin -) 5,000 unit SQ TID [facility] Last Admin: 03/23/19 06:26 Dose: 5,000 unit Influenza Virus Vaccine Quadrival (Flulaval Quad [id number]) 60 mcg IM .ONCE ONE Stop: 03/23/19 10:01 Sodium Bicarbonate (Sodium Bicarbonate -) 650 mg PO TID [facility] Last Admin: 03/23/19 06:26 Dose: 650 mg - Objective Vital Signs: Vital Signs Temperature 97.7 F 03/23/19 06:00 Pulse Rate 91 H 03/23/19 06:00 Respiratory Rate 18 03/23/19 06:00 Blood Pressure 149/72 03/23/19 06:00 O2 Sat by Pulse Oximetry (%) 98 03/23/19 02:35 Constitutional: Yes: Anxious, Poor Hygeine Eyes: Yes: WNL, Conjunctiva Clear HENT: Yes: WNL, Atraumatic, Normocephalic Neck: Yes: WNL, Supple, Trachea Midline, Lymphadenopathy (not present) Cardiovascular: Yes: Regular Rate and Rhythm, Murmur (systolic mummur) Respiratory: Yes: WNL, Regular, CTA Bilaterally Gastrointestinal: Yes: WNL, Normal Bowel Sounds ...Rectal Exam: Yes: Deferred Genitourinary: Yes: Cazares Present (cloudy urine) Breast(s): Yes: WNL Musculoskeletal: Yes: WNL Extremities: Yes: WNL Edema: Yes Edema: LLE: 1+, RLE: Trace Peripheral Pulses WNL: Yes Peripheral Pulses: Left Radial: 2+, Right Radial: 2+, Left Doralis Pedis: 2+, Right Dorsalis Pedis: 2+, Left Femoral: 2+, Right Femoral: 2+ Integumentary: Yes: Rash (Erythematous papular rash with excoriation valdes and scabs, circular in shape on the trunk and extremities. Each leason measuring about 1cm or less, often appearing in rows.) Neurological: Yes: WNL, Alert, Oriented ...Motor Strength: WNL Psychiatric: Yes: WNL Labs: CBC, BMP 03/23/19 05:30 INR, PTT INR 1.44 (0.83-1.09) H 03/23/19 05:30 - ....Imaging Ultrasound: Report Reviewed (Doppler: negative DVT) Problem List - Problems (1) COPD (chronic obstructive pulmonary disease) Assessment/Plan: duo nebs prn supplemental O2 as needed Code(s): J44.9 - CHRONIC OBSTRUCTIVE PULMONARY DISEASE, UNSPECIFIED (2) Prophylactic measure Assessment/Plan: FEN NPO for permacath placement monitor electrolytes no additional IVF needed at this time DVT heparin sq Dispo maintain on tele full code discharge planning Code(s): Z29.9 - ENCOUNTER FOR PROPHYLACTIC MEASURES, UNSPECIFIED (3) CHF (congestive heart failure) Assessment/Plan: no need for diuresis given YVES Strict I's and O's Daily weights Cardiology consultation, Dr. Sheehan, appreciate recommendations TTE pending Code(s): I50.9 - HEART FAILURE, UNSPECIFIED (4) Coronary artery disease Assessment/Plan: CAD s/p CABG (4 vessel, 2014) asa 81 daily TTE pending Code(s): I25.10 - ATHSCL HEART DISEASE OF [place] CORONARY ARTERY W/O ANG PCTRS Qualifiers: Coronary Disease-Associated Artery/Lesion type: [place] artery [place] vs. transplanted heart: [place] heart Associated angina: without angina Qualified Code(s): I25.10 - Atherosclerotic heart disease of [place] coronary artery without angina pectoris (5) S/P CABG (coronary artery bypass graft) Code(s): Z95.1 - PRESENCE OF AORTOCORONARY BYPASS GRAFT (6) YVES (acute kidney injury) Assessment/Plan: BUN 123 Cr 8.8 -Renal u/s without evidence of hydronephrosis, do not suspect post renal cause at this time -Cazares catheter placed in ED, monitor uop -Renal consult, Dr. Pond, appreciate recommendations - Vascular consult, Dr. Giraldo, for Shiley catheter placement - Avoid nephrotoxins including NSAIDs -HD today after vascular access Code(s): N17.9 - ACUTE KIDNEY FAILURE, UNSPECIFIED (7) Hypocalcemia Assessment/Plan: Ca gluconate 1000mg IV given in ED - Calcitriol 0.25mcg PO given in ED - Phoslo - 2 tabs w/ meals - Calcium 500mg/ Vit D 200u 2 tabs daily - follow CMP, mag phos daily - replete lytes PRN Code(s): E83.51 - HYPOCALCEMIA (8) Hyperphosphatemia Assessment/Plan: see above Code(s): E83.39 - OTHER DISORDERS OF PHOSPHORUS METABOLISM (9) Troponin I above reference range Assessment/Plan: 0.15 likely due to demand ischemia and YVES - trend troponin - if significant elevation would treat for NSTEMI Code(s): R79.89 - OTHER SPECIFIED ABNORMAL FINDINGS OF BLOOD CHEMISTRY (10) Rash and nonspecific skin eruption Assessment/Plan: recent cat scratch reported no lymadenopathy noted so unlikely cat scratch disease,will send bortella extreme pruritus partly due to uremia dermatology to see pt - Dr Watson Code(s): R21 - RASH AND OTHER NONSPECIFIC SKIN ERUPTION Visit type - Emergency Visit Emergency Visit: Yes ED Registration Date: 03/22/19 Care time: The patient presented to the Emergency Department on the above date and was hospitalized for further evaluation of their emergent condition. - New Patient This patient is new to me today: Yes Date on this admission: 03/23/19 - Critical Care Critical Care patient: No - Discharge Referral Referred to [facility] Med P.C.: No
[2019-03-23 07:40] LABS: BLOOD UREA NITROGEN 123.8 mg/dL (7-18)
[2019-03-23 07:41] LABS: CREATININE 8.7 mg/dL (0.55-1.3); PHOSPHOROUS > 9.0 mg/dL (2.5-4.9)
--- NOTE | 2019-03-23 07:42 | SPA.PREOP ---
- PRE-OP NOTE Dx: ESRD Planned Procedure: Permacatheter Insertion 03/23/19 @ 15:30hrs Surgeon: Carlos Enrique Giraldo Last Vital Signs Temp Pulse Resp BP Pulse Ox 97.7 F 91 H 18 149/72 98 03/23/19 06:00 03/23/19 06:00 03/23/19 06:00 03/23/19 06:00 03/23/19 02:35 Lab Results WBC 7.1 K/mm3 (4.0-10.0) 03/23/19 05:30 RBC 2.94 M/mm3 (3.60-5.2) L 03/23/19 05:30 Hgb 8.9 GM/dL (10.7-15.3) L 03/23/19 05:30 Hct 27.9 % (32.4-45.2) L 03/23/19 05:30 MCV 94.9 fl (80-96) 03/23/19 05:30 MCHC 32.0 g/dl (32.0-36.0) 03/23/19 05:30 RDW 20.5 % (11.6-15.6) H 03/23/19 05:30 Plt Count 139 K/MM3 (134-434) 03/23/19 05:30 Sodium 143 mmol/L (136-145) 03/23/19 05:30 Potassium 4.8 mmol/L (3.5-5.1) 03/23/19 05:30 Chloride 113 mmol/L (98-107) H 03/23/19 05:30 Carbon Dioxide 13 mmol/L (21-32) L 03/23/19 05:30 Anion Gap 16 MMOL/L (8-16) 03/23/19 05:30 BUN 123.2 mg/dL (7-18) H* 03/22/19 18:11 Creatinine 8.8 mg/dL (0.55-1.3) H* 03/22/19 18:11 Random Glucose 96 mg/dL (74-106) 03/23/19 05:30 Calcium 7.6 mg/dL (8.5-10.1) L 03/23/19 05:30 INR 1.44 (0.83-1.09) H 03/23/19 05:30 - ASSESSMENT/PLAN 1. NPO except po meds 2. GI/DVT PPX 3. Medical optimization / clearance 4. Consent to be obtained by surgeon after risks, benefits and alternatives discussed with patient and or Health Care Proxy. Problem List - Problems (1) CKD (chronic kidney disease) requiring chronic dialysis Code(s): N18.6 - END STAGE RENAL DISEASE; Z99.2 - DEPENDENCE ON RENAL DIALYSIS (2) COPD (chronic obstructive pulmonary disease) Code(s): J44.9 - CHRONIC OBSTRUCTIVE PULMONARY DISEASE, UNSPECIFIED (3) Diabetes mellitus, insulin dependent (IDDM), uncontrolled Code(s): E10.65 - TYPE 1 DIABETES MELLITUS WITH HYPERGLYCEMIA (4) CHF (congestive heart failure) Code(s): I50.9 - HEART FAILURE, UNSPECIFIED (5) Coronary artery disease Code(s): I25.10 - ATHSCL HEART DISEASE OF [place] OF [place] CORONARY ARTERY W/O ANG PCTRS Qualifiers: Coronary Disease-Associated Artery/Lesion type: [place] artery [place] vs. transplanted heart: [place] heart Associated angina: without angina Qualified Code(s): I25.10 - Atherosclerotic heart disease of [place] coronary artery without angina pectoris (6) S/P CABG (coronary artery bypass graft) Code(s): Z95.1 - PRESENCE OF AORTOCORONARY BYPASS GRAFT Visit type - Case Type Case Type: ED Admission - Emergency Emergency Visit: Yes ED Registration Date: 03/22/19 Care time: The patient presented to the Emergency Department on the above date and was hospitalized for further evaluation of their emergent condition. - New patient This patient is new to me today: Yes Date on this admission: 03/23/19
[2019-03-23 08:38] LABS: INR 1.39 (0.83-1.09); PROTHROMBIN TIME (PATIENT) 16.5 SEC (9.7-13.0)
[2019-03-23 08:41] LABS: ACTIVATED PTT 24.4 SECONDS (25.2-36.5)
[2019-03-23] MEDS ORDERED: hydrOXYzine HCL 10 MG/5 ML LIQUID BULK BOTTLE PO PRN ×2 (09:01→10:38)
[2019-03-23] MEDS ORDERED: ONDANSETRON 4 MG/2 ML VIAL IVPUSH PRN (09:03)
[2019-03-23] MEDS ORDERED: FLU VACCINE QUAD 60 MCG/0.5 ML (MDV 19-20) IM ONE (10:00)
--- NOTE | 2019-03-23 10:29 | EKG ---
Test Reason : Blood Pressure : / mmHG Vent. Rate : 082 BPM Atrial Rate : 082 BPM P-R Int : 162 ms QRS Dur : 102 ms QT Int : 440 ms P-R-T Axes : 064 010 165 degrees QTc Int : 514 ms NORMAL SINUS RHYTHM CANNOT RULE OUT INFERIOR INFARCT (CITED ON OR BEFORE 08-FEB-2015) ANTERIOR INFARCT , AGE UNDETERMINED PROLONGED QT ABNORMAL ECG WHEN COMPARED WITH ECG OF 22-MAR-2019 17:50, NO SIGNIFICANT CHANGE WAS FOUND Confirmed by MARV RICARDO MD ([id number]) on 03/23/2019 10:29:16 AM Referred By: Confirmed By:MARV RICARDO MD
--- NOTE | 2019-03-23 10:31 | EKG ---
Test Reason : Blood Pressure : / mmHG Vent. Rate : 088 BPM Atrial Rate : 088 BPM P-R Int : 170 ms QRS Dur : 094 ms QT Int : 410 ms P-R-T Axes : 068 -12 143 degrees QTc Int : 496 ms NORMAL SINUS RHYTHM POSSIBLE LEFT ATRIAL ENLARGEMENT INFERIOR INFARCT (CITED ON OR BEFORE 08-FEB-2015) ABNORMAL ECG WHEN COMPARED WITH ECG OF 20-MAY-2016 09:15, NONSPECIFIC T WAVE ABNORMALITY NO LONGER EVIDENT IN INFERIOR LEADS Confirmed by HALEIGH AVILEZ, MARV ([id number]) on 03/23/2019 10:31:03 AM Referred By: Confirmed By:MARV RICARDO MD
[2019-03-23] MEDS ORDERED: hydrOXYzine PAMOATE 25 MG CAPSULE (FP) PO PRN ×2 (11:14→15:56)
--- NOTE | 2019-03-23 11:56 | CONSULT ---
Consultation: REQUESTING PROVIDER: Dr. Amato CONSULT REQUEST: We have been asked to medically evaluate this patient for ARF. HISTORY OF PRESENT ILLNESS: Pt. is a 58 y.o. F w/ PMHx. of DM2 w/ retinopathy, COPD, CAD (s/p CABG 4 vessels in 2015), and CHF presents for worsening shortness of breath over the last few weeks. Pt. states that a few weeks ago she was scratched on her thigh by her vaccinated, home bound only kitten and that a rash developed from her abdomen to back to extremities associated with pruritis. Pt. states that over this time she has been having fever, chills, decreased appetite, nausea, NBNB emesis, numbness/tingling in her feet, and increased lethargy. Pt endorses increased swellin in her extremities over this time as well. Pt. states she last saw her Stockroom Attendant Dr. Fernández in August and was sent out for bloodwork which she never completed. Pt. states the last time she did blood work was over 2 years ago. Pt. endorses having a recent Echo and Stress test at [facility] which was al normal. Pt. denies any constipation, diarrhea, chest pain, dysuria, hematuria or changes in frequency of urination. Pt. denies any recent antibiotic or NSAID use. Pt. states she takes her Glimepiride 3-4 times per week because she does not take it on days where her BGM is under 100. Pt. states her blood glucose ranges from 80s -150s. Pt. states that she had a cataract surgery 2 weeks ago and saw her retina specialist yesterday who advised her to come to the ER. Of note Pt.'s of Mantle Cell Lymphoma 4 years ago and has 3 healthy children. Pt. lives at home by herself. Pt. quit smoking 20 years ago after 10 years of 1PPD. REVIEW OF SYSTEMS: As above PHYSICAL EXAMINATION Vital Signs - 24 hr 03/22/19 03/22/19 03/23/19 17:52 19:15 02:35 Temperature 97.3 F L 97.4 F L 97.6 F Pulse Rate 87 85 88 Pulse Rate [ 85 Right Radial] Respiratory 18 16 20 Rate Blood Pressure 136/64 151/76 Blood Pressure 139/94 [Left Arm] O2 Sat by Pulse 96 100 98 Oximetry (%) 03/23/19 03/23/19 06:00 08:19 Temperature 97.7 F 98.1 F Pulse Rate 91 H 94 H Pulse Rate [ Right Radial] Respiratory 18 19 Rate Blood Pressure 149/72 137/92 Blood Pressure [Left Arm] O2 Sat by Pulse Oximetry (%) GENERAL: Awake, alert, and fully oriented, in acute psychological distress. HEAD: Normal with no signs of trauma. EYES: Extraocular movements intact, sclera anicteric, conjunctiva clear. EARS, NOSE, THROAT: Ears normal, nares patent, oropharynx clear without exudates. Moist mucous membranes. NECK: Normal range of motion, supple without lymphadenopathy, JVD, or masses. LUNGS: Breath sounds equal, clear to auscultation bilaterally. No wheezes, and no crackles. No accessory muscle use. HEART: Regular rate and rhythm, normal S1 and S2 without murmur, rub or gallop. ABDOMEN: Soft, nontender, not distended, normoactive bowel sounds, no guarding, no rebound, no masses. MUSCULOSKELETAL: Normal range of motion at all joints. Sits hunched over. No bony deformities or tenderness. No CVA tenderness. UPPER EXTREMITIES: warm, well-perfused. No cyanosis. No clubbing. Cap refill <2 seconds. No peripheral edema. LOWER EXTREMITIES: 2+ dorsal pedal pulses, warm, well-perfused. No calf tenderness. 1+ pitting edema. NEUROLOGICAL: Cranial nerves grossly II-XII intact. Normal speech. PSYCHIATRIC: Cooperative. Good eye contact. Sad mood and affect. SKIN: Warm, dry, normal turgor, diffuse rash on back, abdomen, upper extremities with excoriations and crusted over lesions. Laboratory Results - last 24 hr 03/22/19 03/22/19 03/22/19 18:11 18:11 18:11 WBC 7.7 RBC 3.09 L Hgb 9.1 L Hct 29.4 L MCV 95.1 MCH 29.6 MCHC 31.1 L RDW 20.5 H Plt Count 144 D MPV 8.3 Absolute Neuts (auto) 5.5 Neutrophils % 71.2 Lymphocytes % 11.3 D Monocytes % 12.3 H Eosinophils % 3.4 Basophils % 1.8 Nucleated RBC % 0 Anisocytosis 1+ PT with INR 17.10 H INR 1.44 H PTT (Actin FS) 33.0 D-Dimer Sodium 142 Potassium 4.5 Chloride 113 H Carbon Dioxide 14 L Anion Gap 15 BUN 123.2 H* Creatinine 8.8 H* Est GFR (CKD-EPI)AfAm 5.19 Est GFR (CKD-EPI)NonAf 4.48 POC Glucometer Random Glucose 150 H Serum Osmolality 348 H Lactic Acid Calcium 6.7 L* Phosphorus 11.6 H* Magnesium 2.0 Total Bilirubin 0.7 AST 7 L ALT 20 Alkaline Phosphatase 99 Creatine Kinase 186 Creatine Kinase Index 7.6 H CK-MB (CK-2) 14.2 H Troponin I 0.15 H B-Natriuretic Peptide > 28129.0 H Total Protein 6.2 L Albumin 3.5 Urine Color Urine Appearance Urine pH Ur Specific [place] Urine Protein Urine Glucose (UA) Urine Ketones Urine Blood Urine Nitrite Urine Bilirubin Urine Urobilinogen Ur Leukocyte Esterase Urine WBC (Auto) Urine Casts (Auto) U Epithel Cells (Auto) Urine Bacteria (Auto) Ur Random Sodium Blood Type Antibody Screen 03/22/19 03/22/19 03/22/19 19:18 21:30 23:50 WBC RBC Hgb Hct MCV MCH MCHC RDW Plt Count MPV Absolute Neuts (auto) Neutrophils % Lymphocytes % Monocytes % Eosinophils % Basophils % Nucleated RBC % Anisocytosis PT with INR INR PTT (Actin FS) D-Dimer 1151 H Sodium Potassium Chloride Carbon Dioxide Anion Gap BUN Creatinine Est GFR (CKD-EPI)AfAm Est GFR (CKD-EPI)NonAf POC Glucometer 138 Random Glucose Serum Osmolality Lactic Acid Calcium Phosphorus Magnesium Total Bilirubin AST ALT Alkaline Phosphatase Creatine Kinase Creatine Kinase Index CK-MB (CK-2) Troponin I B-Natriuretic Peptide Total Protein Albumin Urine Color Yellow Urine Appearance Turbid Urine pH 5.0 Ur Specific [place] 1.013 Urine Protein 2+ H Urine Glucose (UA) Negative Urine Ketones Negative Urine Blood 1+ H Urine Nitrite Negative Urine Bilirubin Negative Urine Urobilinogen 0.2 Ur Leukocyte Esterase 3+ H Urine WBC (Auto) 442 Urine Casts (Auto) 30 U Epithel Cells (Auto) 14.2 Urine Bacteria (Auto) 407.1 Ur Random Sodium Blood Type Antibody Screen 03/22/19 03/23/19 03/23/19 23:50 00:20 01:15 WBC RBC Hgb Hct MCV MCH MCHC RDW Plt Count MPV Absolute Neuts (auto) Neutrophils % Lymphocytes % Monocytes % Eosinophils % Basophils % Nucleated RBC % Anisocytosis PT with INR INR PTT (Actin FS) D-Dimer Sodium Potassium Chloride Carbon Dioxide Anion Gap BUN Creatinine Est GFR (CKD-EPI)AfAm Est GFR (CKD-EPI)NonAf POC Glucometer 100 Random Glucose Serum Osmolality Lactic Acid Calcium Phosphorus Magnesium Total Bilirubin AST ALT Alkaline Phosphatase Creatine Kinase Creatine Kinase Index CK-MB (CK-2) Troponin I 0.18 H B-Natriuretic Peptide Total Protein Albumin Urine Color Urine Appearance Urine pH Ur Specific [place] Urine Protein Urine Glucose (UA) Urine Ketones Urine Blood Urine Nitrite Urine Bilirubin Urine Urobilinogen Ur Leukocyte Esterase Urine WBC (Auto) Urine Casts (Auto) U Epithel Cells (Auto) Urine Bacteria (Auto) Ur Random Sodium 56 Blood Type Antibody Screen 03/23/19 03/23/19 03/23/19 05:30 05:30 05:30 WBC 7.1 RBC 2.94 L Hgb 8.9 L Hct 27.9 L MCV 94.9 MCH 30.3 MCHC 32.0 RDW 20.5 H Plt Count 139 MPV 8.5 Absolute Neuts (auto) 5.9 Neutrophils % 83.1 H Lymphocytes % 7.6 L D Monocytes % 5.7 Eosinophils % 2.2 Basophils % 1.4 Nucleated RBC % 0 Anisocytosis PT with INR 16.50 H INR 1.39 H PTT (Actin FS) 24.4 L D-Dimer Sodium 143 Potassium 4.8 Chloride 113 H Carbon Dioxide 13 L Anion Gap 16 BUN 123.8 H* Creatinine 8.7 H* Est GFR (CKD-EPI)AfAm 5.26 Est GFR (CKD-EPI)NonAf 4.54 POC Glucometer Random Glucose 96 Serum Osmolality Lactic Acid Calcium 7.6 L Phosphorus > 9.0 H* Magnesium Total Bilirubin 0.9 AST 10 L ALT 19 Alkaline Phosphatase 94 Creatine Kinase Creatine Kinase Index CK-MB (CK-2) Troponin I B-Natriuretic Peptide Total Protein 6.0 L Albumin 3.3 L Urine Color Urine Appearance Urine pH Ur Specific [place] Urine Protein Urine Glucose (UA) Urine Ketones Urine Blood Urine Nitrite Urine Bilirubin Urine Urobilinogen Ur Leukocyte Esterase Urine WBC (Auto) Urine Casts (Auto) U Epithel Cells (Auto) Urine Bacteria (Auto) Ur Random Sodium Blood Type Antibody Screen 03/23/19 03/23/19 03/23/19 05:30 05:30 05:30 WBC RBC Hgb Hct MCV MCH MCHC RDW Plt Count MPV Absolute Neuts (auto) Neutrophils % Lymphocytes % Monocytes % Eosinophils % Basophils % Nucleated RBC % Anisocytosis PT with INR INR PTT (Actin FS) D-Dimer Sodium Potassium Chloride Carbon Dioxide Anion Gap BUN Creatinine Est GFR (CKD-EPI)AfAm Est GFR (CKD-EPI)NonAf POC Glucometer Random Glucose Serum Osmolality Lactic Acid 1.8 Calcium Phosphorus Magnesium Total Bilirubin AST ALT Alkaline Phosphatase Creatine Kinase Creatine Kinase Index CK-MB (CK-2) Troponin I 0.19 H B-Natriuretic Peptide Total Protein Albumin Urine Color Urine Appearance Urine pH Ur Specific [place] Urine Protein Urine Glucose (UA) Urine Ketones Urine Blood Urine Nitrite Urine Bilirubin Urine Urobilinogen Ur Leukocyte Esterase Urine WBC (Auto) Urine Casts (Auto) U Epithel Cells (Auto) Urine Bacteria (Auto) Ur Random Sodium Blood Type O POSITIVE Antibody Screen Negative 03/23/19 03/23/19 03/23/19 05:57 10:30 11:08 WBC RBC Hgb Hct MCV MCH MCHC RDW Plt Count MPV Absolute Neuts (auto) Neutrophils % Lymphocytes % Monocytes % Eosinophils % Basophils % Nucleated RBC % Anisocytosis PT with INR INR PTT (Actin FS) D-Dimer Sodium Potassium Chloride Carbon Dioxide Anion Gap BUN Creatinine Est GFR (CKD-EPI)AfAm Est GFR (CKD-EPI)NonAf POC Glucometer 100 78 Random Glucose Serum Osmolality Lactic Acid Calcium Phosphorus Magnesium Total Bilirubin AST ALT Alkaline Phosphatase Creatine Kinase Creatine Kinase Index CK-MB (CK-2) Troponin I B-Natriuretic Peptide Total Protein Albumin Urine Color Urine Appearance Urine pH Ur Specific [place] Urine Protein Urine Glucose (UA) Urine Ketones Urine Blood Urine Nitrite Urine Bilirubin Urine Urobilinogen Ur Leukocyte Esterase Urine WBC (Auto) Urine Casts (Auto) U Epithel Cells (Auto) Urine Bacteria (Auto) Ur Random Sodium Blood Type O POSITIVE Antibody Screen Active Medications Home Medications Medication Instructions Recorded Aspirin Coated [Ecotrin -] 81 mg PO DAILY #30 tablet.ec 05/22/16 Furosemide [Lasix -] 20 mg PO DAILY #30 tablet 05/22/16 Glimepiride [Amaryl -] 3 mg PO DAILY@0700 #30 tablet 05/22/16 Cetirizine HCl [Zyrtec -] 10 mg PO HS 02/03/19 Fluticasone Prop 0.05% Nasal 1 - 2 spray NS DAILY 02/03/19 [Flonase -] Losartan Potassium [Cozaar -] 50 mg PO DAILY 02/03/19 Current Medications Calcitriol (Rocaltrol -) 0.25 mcg PO ONCE ONE Stop: 03/23/19 22:47 Calcium Acetate (Phoslo -) 1,334 mg PO TIDCM [facility] Last Admin: 03/23/19 08:46 Dose: Not Given Calcium Carbonate/Cholecalciferol (Os-Lucius 500+D -) 2 tab PO DAILY [facility] Last Admin: 03/23/19 10:01 Dose: 2 tab Heparin Sodium (Porcine) (Heparin -) 5,000 unit SQ TID [facility] Last Admin: 03/23/19 06:26 Dose: 5,000 unit Hydroxyzine HCl (Atarax Liquid -) 25 mg PO Q8H PRN PRN Reason: FOR ITCHING Ondansetron HCl (Zofran Injection) 4 mg IVPUSH Q8H PRN PRN Reason: NAUSEA Last Admin: 03/23/19 11:37 Dose: 4 mg Sodium Bicarbonate (Sodium Bicarbonate -) 650 mg PO TID [facility] Last Admin: 03/23/19 06:26 Dose: 650 mg ASSESSMENT/PLAN: Pt. is a 58 y.o. F w/ PMHx. of DM2 w/ retinopathy, COPD, CAD (s/p CABG 4 vessels in 2014), and CHF presents for worsening shortness of breath over the last few weeks. #Acute Renal Failure w/ Metabolic acidosis 2/2 CHF Hold Losartan, avoid Nephrotoxins Cr.: 8.7, BUN: 123.8 Last BMP from 2016 showed CR. of 2.3 Pt. given Calcitriol in ED Pt. agreeable to Permacath placement for HD this evening f/u Rpt. BMP after HD Strict Is and Os, D/c-ed Cazares. Pt. had 400ccs of urine output overnight. d/c zofran as Pt. has prolonged QTc, will start Compazine for Nausea (Tigan has renal relative contraindications for decreased eGFR) Na Bicarbonate 650mg TID for metabolic acidosis (328.7 meQ Bicarbonate deficit) start Calcium Carbonate with Cholecalciferol for hypocalcemia Phoslo for elevated hyperphosphatemia f/u urine electrolyte, urea and creatinine, urine osmolality, eosinophils, calcium/Cr. ratio, SPEP f/u serologies for complement, c-anca, p-anca, anti-GBM antibodies, anti DNA antibodies f/u serologies for hepatitis panel Will discuss with Dr. Fernández if we can hold ASA for 1 week for a kidney biopsy #Tropninemia 0.15-->0.18-->0.19 Tropinemia likely secondary to decreased renal clearance, Cardiology consult ( Dr. Fernández) appreiacted f/u Echo Trend Troponins til peak EKG: prolonged QTc: 514 #Positive UA UA: 2+protein, 1+ blood, 3+ LE, 442 WBCs f/u UCx. would consider starting empiric Ceftriaxone ID consult to Dr. Mijares appreciated #DVT Ppx. Hep SQ BID Dispo: We will continue to follow the patient. Thank you for this consultative opportunity. Visit type - Emergency Visit Emergency Visit: Yes ED Registration Date: 03/22/19 Care time: The patient presented to the Emergency Department on the above date and was hospitalized for further evaluation of their emergent condition. - New Patient This patient is new to me today: Yes Date on this admission: 03/23/19 - Critical Care Critical Care patient: No ATTENDING PHYSICIAN STATEMENT I saw and evaluated the patient. I reviewed the resident's note and discussed the case with the resident. I agree with the resident's findings and plan as documented. SUBJECTIVE: OBJECTIVE: ASSESSMENT AND PLAN:
[2019-03-23] MEDS ORDERED: PROCHLORPERAZINE INJECTION 10 MG/2 ML VIAL IM PRN (12:24)
[2019-03-23] MEDS ORDERED: TRIMETHOBENZAMIDE HCL 200MG/2ML INJ IM PRN (12:25)
--- NOTE | 2019-03-23 13:48 | PN ---
Teaching Attending Note Name of Resident: vEert Thompson (Nephrology) ATTENDING PHYSICIAN STATEMENT I saw and evaluated the patient. I reviewed the resident's note and discussed the case with the resident. I agree with the resident's findings and plan as documented. Renal Pt is a 58 year old female with pmhx of DM, retinopathy, COPD, CAD, cabg and chf wh was sent in from ophthalmology for generalized malaise. She was found to be in renal failure. She has poor outpt follow up. She says that she has not had bloodwork in a few years. She denies shortness of breath. She denies dysuria or hematuria. She complains of decreased appetite. She also complains of increased fatigue and sleepiness. She did get a rash recently. She denies being sick recently. She was on an arb and on lasix. Last Vital Signs Temp Pulse Resp BP Pulse Ox 98.1 F 94 H 19 137/92 98 03/23/19 08:19 03/23/19 08:19 03/23/19 08:19 03/23/19 08:19 03/23/19 02:35 Last Vital Signs Temp Pulse Resp BP Pulse Ox 98.1 F 94 H 19 137/92 98 03/23/19 08:19 03/23/19 08:19 03/23/19 08:19 03/23/19 08:19 03/23/19 02:35 pmhx dm copd cad cabg chf pshx cabg social hx quit smoking ros fatigue Current Medications Generic Name Dose Route Start Last Admin Trade Name Freq PRN Reason Stop Dose Admin Calcitriol 0.25 mcg 03/23/19 22:46 Rocaltrol - PO 03/23/19 22:47 ONCE ONE Calcium Acetate 1,334 mg 03/22/19 23:45 03/23/19 12:10 Phoslo - PO Not Given TIDCM DEANNA Calcium Carbonate/Cholecalciferol 2 tab 03/22/19 22:45 03/23/19 10:01 Os-Lucius 500+D - PO 2 tab DAILY DEANNA Administration Heparin Sodium (Porcine) 5,000 unit 03/23/19 06:00 03/23/19 06:26 Heparin - SQ 5,000 unit TID DEANNA Administration Hydroxyzine Pamoate 25 mg 03/23/19 11:14 Vistaril - PO Q8H PRN FOR ITCHING Prochlorperazine Edisylate 5 mg 03/23/19 12:24 Compazine Injection - IM Q4H PRN NAUSEA AND/OR VOMITING Sodium Bicarbonate 650 mg 03/23/19 06:00 03/23/19 13:31 Sodium Bicarbonate - PO 650 mg TID DEANNA Administration Laboratory Tests 03/22/19 03/22/19 03/23/19 23:50 23:50 05:30 Hgb 8.9 L BUN Creatinine Phosphorus Urine Protein 2+ H Urine Blood 1+ H Ur Random Sodium 56 03/23/19 05:30 Hgb BUN 123.8 H* Creatinine 8.7 H* Phosphorus > 9.0 H* Urine Protein Urine Blood Ur Random Sodium cardio s1s2 reg pulm clear GI soft ext trace edema neuro awake and alert Impression 1. CKD with YVES 2. CHF 3. DM 4. HTN 5. hyperlipidemia 6. nephrotic range proteinuria 7. CAD Plan - renal workup sent for ckd - will start HD today as she has uremic symptoms - montior urine output - can d/c liu catheter - cardio follow up for asa - cont phos binders - will likely stop po bicarb by tomorrow
[2019-03-23] MEDS ORDERED: SODIUM CHLORIDE 250 ML IV PRN ×2 (13:55→15:56)
--- NOTE | 2019-03-23 14:05 | PN ---
Progress Note (short form) - Note Progress Note: PULMONARY CONSULTATION DICTATED 03/23/19 IMP DYSPNEA ACUTE ON CHRONIC CHF UREMIA ACUTE ON CHRONIC KIDNEY FAILURE DM COPD NOT IN ACUTE EXACERBATION ASHD S/P CABG + TROPONIN H/O TOBACCO USE LIKELY UREMIC PRURITIS PLAN HD PER RENAL O2 MONITOR LYTES,RENAL FUNCTION TREND TROPONIN ECHO F/U CHEST X-RAYS DR CHUA Problem List - Problems (1) Uremic pruritus Code(s): L29.9 - PRURITUS, UNSPECIFIED (2) COPD (chronic obstructive pulmonary disease) Code(s): J44.9 - CHRONIC OBSTRUCTIVE PULMONARY DISEASE, UNSPECIFIED (3) Dyspnea Code(s): R06.00 - DYSPNEA, UNSPECIFIED (4) Urdhe-qo-phudfuw kidney injury Code(s): N17.9 - ACUTE KIDNEY FAILURE, UNSPECIFIED; N18.9 - CHRONIC KIDNEY DISEASE, UNSPECIFIED (5) CHF (congestive heart failure) Code(s): I50.9 - HEART FAILURE, UNSPECIFIED (6) S/P CABG (coronary artery bypass graft) Code(s): Z95.1 - PRESENCE OF AORTOCORONARY BYPASS GRAFT (7) Troponin I above reference range Code(s): R79.89 - OTHER SPECIFIED ABNORMAL FINDINGS OF BLOOD CHEMISTRY
[2019-03-23] MEDS ORDERED: SODIUM CHLORIDE 1,000 ML IV SCH ×2 (14:15→15:56)
[2019-03-23] MEDS ORDERED: HEPARIN NA (PORCINE) 5,000 UNITS/ML 1ML VIAL ONE (14:18)
[2019-03-23] MEDS ORDERED: POVIDONE-IODINE OINTMENT 10% - 28.4 GM TUBE ONE (14:18)
[2019-03-23] MEDS ORDERED: LIDOCAINE HCL 1%, 10 MG/ML (20ML VIAL) ONE ×2 (14:18→18:15)
[2019-03-23] MEDS ORDERED: DEXTROSE 50%-WATER 25 GM/50 ML DISP.SYRIN ONE (14:20)
--- NOTE | 2019-03-23 14:21 | PN ---
Progress Note (short form) - Note Progress Note: ID consult dictated imp.reccd asked to see for possible UTI and skin rash has an itchy dermatitis with patches on her abdomen (where it started) and on her arms, back she has a healing dry patch on her thigh where her house cat scratched her several weeks ago no adenopathy no fever pyuria without clear urinary symptoms- she is fatigued and crying and not giving a good history will hold on antiboitics at this time-no fevers, no leukocytosis f/u bartonella serology ?secondary to uremia- hopefully will improve with HD severe penicillin allergy renal failure- evaluation per renal history of CABG- f/u with cardiology, echo pending d/w renal d/w hospitalist
--- NOTE | 2019-03-23 14:39 | ECHO ---
Name: AGUSTIN JOHN Exam:Adult Echocardiogram Study Date: 03/23/2019 11:10 AM Age: 58 yrs Reason For Study: Elevated BNP Height: 66 in Weight: 150 lb BSA: 1.8 m2 MMode/2D Measurements & Calculations IVSd: 1.0 cm Ao root diam: 3.0 cm LVIDd: 4.7 cm LA dimension: 3.9 cm LVIDs: 3.6 cm ACS: 1.2 cm LVPWd: 1.8 cm EDV(Teich): 100.2 ml LVOT diam: 2.0 cm ESV(Teich): 55.7 ml RV S Shalom: 9.8 cm/sec Doppler Measurements & Calculations MV E max shalom: 110.1 cm/sec Ao V2 max: 148.4 cm/sec MV A max shalom: 118.0 cm/sec Ao max P.8 mmHg MV E/A: 0.93 Ao V2 mean: 100.0 cm/sec MV dec time: 0.07 sec Ao mean P.6 mmHg Ao V2 VTI: 30.3 cm NAKIA(I,D): 1.5 cm2 AI P1/2t: 758.4 msec NAKIA(V,D): 1.4 cm2 AI max shalom: 360.8 cm/sec LV V1 max P.9 mmHg AI max P.1 mmHg LV V1 mean P.97 mmHg AI dec slope: 139.3 cm/sec2 LV V1 max: 68.2 cm/sec LV V1 mean: 45.7 cm/sec LV V1 VTI: 15.1 cm MR max shalom: 510.7 cm/sec SV(LVOT): 45.2 ml MR max P.2 mmHg TR max shalom: 398.1 cm/sec PI end-d shalom: 172.1 cm/sec TR max P.0 mmHg RVSP(TR): 74.0 mmHg Med Peak E' Shalom: 3.2 cm/sec RAP systole: 10.0 mmHg Med E/e': 34.2 Lat Peak E' Shalom: 7.9 cm/sec Lat E/e': 13.9 Procedure The study was technically difficult with many images being suboptimal in quality. Left Ventricle The left ventricle is grossly normal size. The left ventricle is not well visualized. Left ventricula r systolic function is severely reduced. There is severe global hypokinesis of the left ventricle. Elizabet onal wall motion abnormalities cannot be excluded due to limited visualization. Right Ventricle The right ventricle is not well visualized. Atria Normal left and right atrial size and function. Mitral Valve There is mild mitral valve thickening. There is no mitral valve stenosis. There is moderate to severe mitral regurgitation. Tricuspid Valve There is mild tricuspid valve thickening. There is no tricuspid stenosis. There is severe tricuspid regurgitation. Right ventricular systolic pressure is elevated at >60mmHg. Aortic Valve The aortic valve is trileaflet. There is mild to moderate aortic valve thickening. There is mild to m oderate aortic sclerosis.;. No hemodynamically significant valvular aortic stenosis. Mild to moderate aortic regurgitation. Pulmonic Valve The pulmonic valve is not well visualized. Great Vessels The aortic root is normal size. Pericardium/Pleura There is no pericardial effusion. Interpretation Summary The left ventricle is grossly normal size. There is moderate to severe mitral regurgitation. There is severe tricuspid regurgitation. There is mild to moderate aortic valve thickening. There is mild to moderate aortic sclerosis.; Left ventricular systolic function is severely reduced. There is severe global hypokinesis of the left ventricle. Right ventricular systolic pressure is elevated at >60mmHg. The left ventricle is not well visualized. The right ventricle is not well visualized. Regional wall motion abnormalities cannot be excluded due to limited visualization. Mild to moderate aortic regurgitation. MD Kartik Branch 03/23/2019 02:38 PM
[2019-03-23] MEDS ORDERED: PROPOFOL 20 ML ONE (14:42)
[2019-03-23] MEDS ORDERED: HEPARIN NA (PORCINE) 5,000 UNITS/ML 1ML VIAL SQ ONE ×2 (14:48→15:00)
[2019-03-23] MEDS ORDERED: MIDAZOLAM HCL 2 MG/2 ML SINGLE DOSE VIAL ONE (14:49)
[2019-03-23] MEDS ORDERED: ceFAZolin SODIUM 1 GM VIAL ONE (14:51)
[2019-03-23] MEDS ORDERED: SODIUM CHLORIDE 0.9% P/F 10 ML VIAL IJ ONE (14:51)
[2019-03-23] MEDS ORDERED: LIDOCAINE HCL 1%, 10 MG/ML (20ML VIAL) INF ONE (14:55)
--- NOTE | 2019-03-23 15:16 | OP ---
Operative Note - Note: Operative Date: 03/23/19 Pre-Operative Diagnosis: CRF Operation: Insertion of permacath Post-Operative Diagnosis: Same as Pre-op Surgeon: Carlos Enrique Giraldo Anesthesia: Fractional Estimated Blood Loss (mls): 20 Operative Report Dictated: Yes
--- NOTE | 2019-03-23 18:13 | CON.ID ---
Consult Reason for Consultation:: rash - History of Present Illness Chief Complaint: rash History of Present Illness: Ms. Hughes is a 58y/o female with non IDDM, CHF, CAD s/p 4 vessel CABG (2014), COPD, cataracts, and diabetic retinopathy who presented with rash x2 weeks. She reports having an indoor, vaccinated cat who scratched her while jumping off her lap "several weeks ago." For the last 2 weeks she reports erythematous papular rash and pruritis at the initial site on the left lateral thigh as well as various sites and stages at stomach, arms, right leg, and back. There is no drainage but does scratch some until they bleed. She reports some relief with topical Benadryl. She denies fever, chest pain, vomiting, dysuria, or flank pain. She has had some nausea and chills since admission. She has not recently traveled. She sees her automotive service management teacher and chaperone regularly but does not have primary care doctor. No known hx of renal disease. She lives at home with 2 adult children and is on disability. Pt reports PCN allergy with full-body rash and difficulty breathing. - History Source History Provided By: Patient Limitations to Obtaining History: No Limitations - Past Medical History CLINICAL ADMISSIONS MANAGER: Yes: Vertigo Cardio/Vascular: Yes: CAD Pulmonary: Yes: COPD Endocrine: Yes: Diabetes Mellitus - Past Surgical History Past Surgical History: Yes: Arthrosocopy (Rt knee surgery in her 20s secondary to chrondomalacia), CABG - Alcohol/Substance Use Hx Alcohol Use: No History of Substance Use: reports: None - Smoking History Smoking history: Former smoker Have you smoked in the past 12 months: No Aproximately how many cigarettes per day: 0 If you are a former smoker, when did you quit?: 18 yrs ago - Social History Usual Living Arrangement: Other (adult children) ADL: Independent 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[employer] Home Medications - Allergies Allergies/Adverse Reactions: Allergies Allergy/AdvReac Type Severity Reaction Status Date / Time Penicillins Allergy Severe RESPIRATORY Verified 03/23/19 18:18 DISTRESS prednisone AdvReac Severe disorientat Verified 03/23/19 18:18 ion morphine AdvReac disorientat Verified 03/23/19 18:18 ion BETA BLOCKERS Allergy Severe SEVERE Uncoded 03/22/19 17:55 HYPOTENSION - Home Medications Home Medications: Ambulatory Orders Aspirin Coated [Ecotrin -] 81 mg PO DAILY #30 tablet.ec 05/22/16 Furosemide [Lasix -] 20 mg PO DAILY #30 tablet 05/22/16 Glimepiride [Amaryl -] 3 mg PO DAILY@0700 #30 tablet 05/22/16 Cetirizine HCl [Zyrtec -] 10 mg PO HS 02/03/19 Fluticasone Prop 0.05% Nasal [Flonase -] 1 - 2 spray NS DAILY 02/03/19 Losartan Potassium [Cozaar -] 50 mg PO DAILY 02/03/19 Review of Systems - Review of Systems Constitutional: reports: Chills. denies: Fever Cardiovascular: denies: Chest Pain, Shortness of Breath Gastrointestinal: reports: Nausea. denies: Abdominal Pain, Vomiting Genitourinary: denies: Dysuria, Flank Pain Integumentary: reports: Rash Physical Exam Vital Signs: Vital Signs Temperature 97.8 F 03/23/19 17:00 Pulse Rate 86 03/23/19 17:00 Respiratory Rate 16 03/23/19 17:00 Blood Pressure 120/78 03/23/19 17:00 O2 Sat by Pulse Oximetry (%) 100 03/23/19 17:00 Constitutional: Yes: Well Nourished, No Distress Eyes: Yes: Conjunctiva Clear, EOM Intact HENT: Yes: Atraumatic, Normocephalic Cardiovascular: Yes: Regular Rate and Rhythm, Murmur Respiratory: Yes: CTA Bilaterally Gastrointestinal: Yes: Normal Bowel Sounds, Soft. No: Tenderness Edema: No Integumentary: Yes: Erythema, Rash (papular rash left lateral thigh, right upper abdomen, right medial knee, bilateral upper arms, upper back, right lower back) Labs: CBC, BMP 03/23/19 05:30 03/23/19 05:30 Imaging - Results Chest X-ray: Report Reviewed (no acute pathology), Image Reviewed Assessment/Plan Ms. Hughes is a 58y/o female with non IDDM, CHF, CAD s/p 4 vessel CABG (2014), COPD, cataracts, and diabetic retinopathy who presented with rash x2 weeks. She reports erythematous papular rash and pruritis at the initial site on the left lateral thigh as well as various sites and stages at stomach, arms, right leg, and back. Pt had elevated BUN and Cr at admission. #rash/pruritis Pt had unknown renal disease. She could have pruritis given uremia. BUN 123.8 today and phos >9. Less likely is Bartonella, but given hx of cat scratch cannot r/o. -Bartonella labs pending -hep panel pending -immuno panel pending -derm consult recommended -will not give abx at this time as uremia is possible cause of pruritis and subsequent rash -anti-histamines PRN itching #asymptomatic bacteruria +3 leuk esterase, +1 blood, 442 WBC, 407 bacteria -will hold abx given pt is denying symptoms #uremia Perma-cath placed today for HD -HD and reassess pruritis #PCN allergy rash and difficulty breathing -avoid PCN and cephalosporins
--- NOTE | 2019-03-23 19:12 | CONS ---
DATE OF CONSULTATION: 03/23/2019 PULMONARY CONSULTATION REFERRING PHYSICIAN: EDIS Ahuja HISTORY OF PRESENT ILLNESS: The patient is a 58-year-old white female with a past medical history of type 2 diabetes mellitus with retinopathy, likely chronic kidney disease, COPD, ASHD status post CABG with four-vessel disease in 2014, congestive heart failure, admitted to [facility] on March 22, 2019 secondary to a two-week history of increasing shortness of breath and dyspnea on exertion. The patient denies any chest pain, nausea, vomiting or diaphoresis. The patient is also complaining of a one-month history of generalized itching and skin rash. She states that for the past few weeks, she has been having some intermittent fevers and chills, decreased p.o. intake and nausea. She has also noted increasing lower extremity edema. She went to see her wreath inspector in August and was apparently sent for labs which she never completed. The patient has apparently had no lab work done in the last two years. On admission, she was noted to be in acute renal failure with a BUN of 123 and a potassium of 8.8. She was also noted to have a phosphorus level of 11.6. On admission, she was started on PhosLo. She was also placed on empiric antibiotics and normal saline. The patient denies any recent travel. There is no past history of DVT or PE. She has a history of tobacco use for approximately 25 years and quit greater than 20 years ago. She also carries a diagnosis of COPD although she is not on inhaled bronchodilators. PAST MEDICAL HISTORY: Again, this includes type 2 diabetes mellitus with retinopathy, likely chronic kidney disease, COPD, ASHD status post CABG with four-vessel disease in 2014 and congestive heart failure. REVIEW OF SYSTEMS: No orthopnea. Positive dyspnea on exertion. No chest pain or palpitations. Positive for generalized pruritus, positive for skin rash, positive for intermittent fevers. CURRENT MEDICATIONS: Sodium bicarbonate, heparin, Compazine, Vistaril, normal saline, Sublimaze, PhosLo, Os-Lucius and Rocaltrol. PHYSICAL EXAMINATION: General: The patient is a well-developed, well-nourished female, awake and alert, in no acute distress. Vital Signs: She is afebrile. Blood pressure is 137/92, respiratory rate 19, O2 saturation is 99% on room air. HEENT: Head is normocephalic, atraumatic. Neck: Supple without lymphadenopathy. Heart: Regular. S1, S2. Chest: Clear. Abdomen: Soft. Bowel sounds are positive. Extremities: No cyanosis or edema. LABORATORY: Troponin is 0.19. Chemistries: BUN is 123, creatinine is 8.7, phosphorus greater than 9, WBC is 7.1, hemoglobin 8.9, hematocrit 27.9 with a platelet count of 139,000. A chest x-ray shows no acute infiltrates or effusions;+ cardiomegaly. A renal ultrasound shows no hydronephrosis. There are bilateral renal calcifications. Otherwise normal. IMPRESSION: 1. Dyspnea, likely secondary to dlbap-ks-wiekxby congestive heart failure. 2. Uremia. 3. Owytg-kd-hcsspun kidney failure. 4. Diabetes mellitus. 5. COPD not in acute exacerbation. 6. Arteriosclerotic heart disease status post CABG. 7. Positive troponins. 8. History of tobacco use. 9. Likely uremic pruritus. PLAN: 1. Hemodialysis per renal. 2. Supplemental O2. 3. Monitor electrolytes and renal function. 4. Trend troponins. 5. Echocardiogram. 6. Follow up chest x-rays. Candida [id number] [id number]
--- NOTE | 2019-03-23 19:30 | CONS ---
INFECTIOUS DISEASE CONSULTATION DATE OF CONSULTATION: DATE OF DICTATION: 03/23/2019 REQUESTING PHYSICIAN: The hospitalist service. This is a 58-year-old woman who was sent to the ER by her nut chopper for generalized malaise. She gives a history of poor outpatient followup. She sees her sanitary aide every once in a while. She has not had any blood work in years. She presents with fatigue and tiredness. She reports a 3-4 weeks of an itchy rash that she has had all over her body. It started on her abdomen, and then, it spread to her back. She has several patches on her arms. As well, her cat scratched her on her left thigh. I am asked to see her for this rash. She denies any fevers. She denies any cough. PAST MEDICAL HISTORY: Notable for diabetes, retinopathy, COPD, coronary artery disease, and CHF. She has a history of CABG, 4 vessel, in 2014. She has had 2 C-sections, cataract surgery, and a pectoralis revision. SOCIAL HISTORY: She is a former smoker. She does not drink any alcohol. No history of substance use. She lives with her children. FAMILY HISTORY: Diabetes in her mother. ALLERGIES: She is allergic to PENICILLIN which causes difficulty breathing and PREDNISONE and MORPHINE and PHENOBARBITAL. MEDICATIONS AT HOME: Include aspirin, Lasix, glimepiride, Zyrtec, and losartan. It is unclear who is giving her her medications. REVIEW OF SYSTEMS: She gives a history of chills and malaise and occasional shortness of breath. She is actually a very poor historian. She denies any nausea or vomiting. She has no dysuria or diarrhea. PHYSICAL EXAMINATION: Vital Signs: She has no fever; temperature is 97.8. Pulse is 86. Blood pressure 115/78. Respiratory rate 16. She is saturating 100%. HEENT: She is normocephalic. Her eyes are anicteric. Neck: Supple. Lungs: Diminished breath sounds at the bases. Heart: Regular rate and rhythm. She has a 2/6 holosystolic murmur. Abdomen: Soft, nontender. She has no suprapubic or CVA tenderness. Extremities: Without edema. Skin: She has a scattered rash that is sort of macular and looks excoriated with groups of lesions at scratch bites on her back, on her arms, and left thigh. Lymph Nodes: She has no adenopathy. She has no inguinal adenopathy or axillary adenopathy. LABORATORY DATA: Her labs are notable for a white count of 7.1, hemoglobin 8.9, platelets are 139. INR is 1.4. Chemistries: Her BUN is 123 and creatinine 8.7, with normal LFTs. Her urinalysis has 3+ leukocyte esterase, and urine culture is pending. In summary, this is a 58-year-old woman with: 1. Renal failure of unclear timing. Last labs at [facility] are from 2017. At which time, she had a creatinine of 2.3. She is being worked up by Renal. 2. Rash. I suspect this may all be secondary to her uremia. Her phosphorus levels are very high, and most of the rash looks like excoriations. Her cat has scratched her, but I do not see anything suggestive of cat scratch disease. She has no adenopathy. Bartonella serology has been ordered. 3. She has no signs and symptoms of a urinary tract infection as well; so, at this time, would hold off on antibiotics. 4. Lastly, she has a severe PENICILLIN allergy which is noted. Further plan per Nephrology. MATY CRESPO M.D. [id number]
--- NOTE | 2019-03-23 20:53 | CONS ---
DATE OF CONSULTATION: DATE OF DICTATION: 03/23/2019 REQUESTING PHYSICIAN: Altaf Amato M.D. REASON FOR CONSULTATION: Cardiology consultation CHIEF COMPLAINTS: 1. Shortness of breath. 2. Generalized weakness. Easy fatigability. 3. Weakness. HISTORY OF PRESENT ILLNESS: Patient is a 58-year-old female with history of coronary artery disease, status post myocardial infarction, status post coronary artery bypass grafting, history of external wound infection, history of congestive heart failure, diagnosed to have diabetes mellitus at the time of myocardial infarction, history of hypertension, hypercholesterolemia. Patient was at her office and was complaining of weakness, and he found that her pulse was 30 and had her come to the emergency room. Patient states for the past 2 weeks she has been complaining of generalized weakness, easy fatigability, progressive exertional dyspnea. No history of chest pain or discomfort. exertion. No history of palpitations, lightheadedness, dizziness, presyncope or syncope reported. She does complain of feeling feverish. Patient has shown poor compliance following her coronary artery bypass grafting and poor medical followup. In the emergency room, she was found to be in acute renal failure. She currently is undergoing dialysis. PAST HISTORY: As mentioned in the history of present illness. History of diabetic nephropathy. History of diabetic retinopathy. SOCIAL HISTORY: Poor compliance. She is a , has 2 sons and a daughter. Used to smoke 1 pack of cigarettes per day, stopped 21 years ago. Denies use of alcohol. FAMILY HISTORY: Father at age 89 of natural causes. Mother at the age of 69. She had suffered a cerebrovascular accident and was hypertensive. Has 1 sister who apparently is healthy. ALLERGIES: 1. PENICILLIN. 2. Apparently she has had allergy to PREDNISONE as documented in the hospital record. 3. BETA BLOCKERS, would cause hypotension. MEDICATION: 1. Aspirin 81 mg p.o. daily. 2. Furosemide 20 mg p.o. daily. 3. Amaryl 3 mg p.o. daily. 4. Losartan 50 mg p.o. daily. 5. Flonase 2 sprays daily. 6. Zyrtec 10 mg p.o. at bedtime. REVIEW OF SYSTEMS: Constitutional: No history of chills, history of feeling feverish. No history of unintentional weight loss. HEENT: No history of headaches. History of diabetic retinopathy, undergoing treatment. No history of epistaxis or hoarseness, no history of tinnitus, or deafness. Cardiovascular: See history of present illness. Respiratory: History of intermittent cough with scant clear expectoration. No history of hemoptysis. Gastrointestinal: No history of nausea, vomiting, melena, or hematemesis reported. There is some decrease in appetite. No history of abdominal pain or discomfort. No history of change in bowel habits. Neurological: No history of seizures, syncope, or focal weakness. No history of lightheadedness or dizziness reported. Endocrine: See history of present illness. Musculoskeletal: No history of myalgias or arthralgias reported. Hematological: History of anemia. Genitourinary: Denies having oliguria or dysuria, frequency or hematuria. PHYSICAL EXAMINATION: General: Patient is a 58-year-old female who is undergoing dialysis. There was pallor, no cyanosis, clubbing or jaundice. Neck: Supple. No jugulovenous distention. Positive hepatojugular reflex. Carotids 1 to 2 plus, upstrokes were normal, no bruits were heard, and no thyromegaly was present. Heart: PMI was in the 5th intercostal space, no heaves or thrills. Heart sounds were distant. There was a grade 2/6 decrease in the systolic murmur heard along the left sternal border and apex. No diastolic murmur or gallops were heard. Lungs: Decreased breath sounds at both bases. No extraneous sounds were heard. Abdomen: Soft, nontender, no hepatosplenomegaly was appreciated or palpable masses were felt. On the left abdominal wall there was raised circumscribed lesion with erythema and encrusting in the middle. Extremities: No calf tenderness or dependent edema. There was raised encrusted circumscribed lesions surrounded by erythema on the left thigh (history of being scratched by a cat). Femoral pulses were 2+, dorsalis pedis pulses and posterior tibial pulses were weak. LABORATORY DATA: On March 23, 2019, at 5:30 a.m.: sodium 143, potassium 4.8, chloride 113. CO2 of 13 mmol/L. BUN 123.8, creatinine 8.7 mg/dL. Estimated GFR was 4.54. Glucose 96 mg/dL. Calcium 7.6 mg/dL. Phosphorus was over 9.0. Normal liver function tests. Troponin I was 0.19. Total protein was 6.0, albumin was 3.3, low. CBC, March 23, 2019: WBC 7100, hemoglobin 8.9 g/dL, hematocrit 27.9%. Differential: Neutrophils 83.1%, lymphocytes 7.6%, monocytes 5.7%, eosinophils 2.2%, basophils 1.4%. Anisocytosis was noted. D-dimer was elevated at 1151. INR was elevated at 1.39. PT was 16.50. Urinalysis revealed 2+ protein, 1+ blood, 3+ leukocyte esterase, 2+ protein. X-ray chest dated March 22, 2019, impression: No acute chest pathology. ECG March 22 at 1750 hours: Sinus rhythm with intraatrial conduction abnormality, left axis deviation, LVH by voltage criteria (AVL). Poor R wave progression V1 to V2 possibility of an anterior wall myocardial infarction cannot be excluded. QS in III and AVF suggestive of an inferior wall myocardial infarction of indeterminate age. Diffuse ST and T wave abnormalities. Echocardiogram, interpretation summary: Left ventricle is grossly normal in size. There is moderate to severe mitral regurgitation. There is severe tricuspid regurgitation. There is mild to moderate aortic valve thickening. Mild to moderate aortic sclerosis. The left ventricular systolic function is severely reduced. There is severe global hypokinesia of the left ventricle. Right ventricle systolic pressure is elevated at over 16 mmHg. The left ventricle is not fully visualized. The right ventricle is not well visualized. Regional wall motion abnormality cannot be excluded due to limited visualization. There is mild to moderate aortic regurgitation. Current medications were reported as follows: 1. Sodium bicarbonate, 650 mg p.o. t.i.d. 2. Heparin 5000 units subcutaneous t.i.d. 3. Compazine 5 mg IM q.4 h. p.r.n. 4. Diphenhydramine/calamine, 1 application b.i.d. 5. Restoril 25 mg q.8 h. p.r.n. 6. DuoNeb 1 ampule via nebulizer q.6 h. p.r.n. 7. Sodium chloride p.r.n. for hypertension. 8. Sodium chloride 42 mL per hour IV. 9. Fentanyl 25 mcg IV push q.5 minutes p.r.n. for pain. 10. PhosLo 1334 mg p.o. t.i.d. 11. Os-Lucius with D 2 tablets p.o. daily. 12. Calcitriol 0.25 mcg p.o. daily. IMPRESSION: 1. Acute renal failure. 2. History of diabetic nephropathy. 3. Coronary artery disease, status post myocardial infarction, status post coronary artery bypass grafting, complicated by sternal wound infection. 4. History of congestive heart failure. 5. Noninsulin dependent diabetes mellitus with multisystem involvement. 6. Poor compliance. 7. Hypertension. 8. Elevated troponins may be related to coronary artery disease versus renal failure. 9. Hypercholesterolemia. 10. Systolic murmur secondary to colon. A. Mitral regurgitation. B. Tricuspid regurgitation. 11. Pulmonary hypertension. 12. Possible cat scratch fever. RECOMMENDATION: 1. Obtain all medications for reconciliation. 2. Follow up troponin levels. 3. Ideally, patient should be continue don aspirin. 4. Renal biopsy is being contemplated. 5. Follow up ECG. 6. BNP. Prognosis critical. Thank you for your referral. Yours sincerely, TOY PEDRO M.D. [id number]
[2019-03-23] MEDS: PRAMOXINE HCL/CALAMINE 177 ML LOTION TP SCH (21:30)
[2019-03-23] MEDS ORDERED: CALCITRIOL 0.25 MCG CAPSULE (FP) PO ONE ×2 (22:46)
[2019-03-23] MEDS: PROCHLORPERAZINE INJECTION 10 MG/2 ML VIAL IM PRN (23:35)
[2019-03-24] MEDS: HEPARIN NA (PORCINE) 5,000 UNITS/ML 1ML VIAL SQ SCH ×3 (06:00→21:27)
[2019-03-24] MEDS: PROCHLORPERAZINE INJECTION 10 MG/2 ML VIAL IM PRN ×2 (06:01→12:38)
[2019-03-24] MEDS: SODIUM BICARBONATE 650 MG TABLET PO SCH ×2 (06:06→13:31)
[2019-03-24 07:12] LABS: BASO % 1.2 % (0-2.0); EOS % 2.7 % (0-4.5); MCH 29.8 pg (25.7-33.7); MCHC 32.1 g/dl (32.0-36.0); MEAN CELL VOLUME 92.7 fl (80-96); MEAN PLT VOLUME 8.1 fl (7.5-11.1); MONO % 11.9 % (3.8-10.2); NEUT % 70.2 % (42.8-82.8); PLATELET COUNT 134 K/MM3 (134-434); RBC 2.69 M/mm3 (3.60-5.2); RDW 20.2 % (11.6-15.6); WHITE BLOOD COUNT 7.1 K/mm3 (4.0-10.0)
[2019-03-24 07:45] LABS: ALBUMIN 3.1 g/dl (3.4-5.0); BILIRUBIN,TOTAL 0.9 mg/dL (0.2-1); BLOOD UREA NITROGEN 72.8 mg/dL (7-18); CALCIUM 7.5 mg/dL (8.5-10.1); CREATININE 6.1 mg/dL (0.55-1.3); MAGNESIUM 1.7 mg/dL (1.8-2.4); PHOSPHOROUS 6.7 mg/dL (2.5-4.9); POTASSIUM 4.1 mmol/L (3.5-5.1); TOT PROT 5.4 g/dl (6.4-8.2)
--- NOTE | 2019-03-24 08:01 | PN ---
Progress Note, Physician Chief Complaint: Remains very tearful today but states she is feeling better History of Present Illness: 58F with a PMH of DM retinopathy, DM, CAD s/p CABG (4 vessel, 2014) and CHF who presents to the ER for worsening SOB and malaise. Pt states that she was at her asic engineer's office today and mentioned that she hadn't been feeling well recently. He spoke with her rental car porter who recommended that she come to the ED for evaluation. She denies fever, chills, nausea, vomiting, CP, abd pain but admits to SOB and mild swelling in her L LE which "goes down at night". She also complains of a rash which started 2 weeks ago after being scratched by her cat and is pruritic and spreading. - Current Medication List Current Medications: Active Medications Albuterol/Ipratropium (Duoneb -) 1 amp NEB Q6H PRN PRN Reason: SHORTNESS OF BREATH Bacitracin (Bacitracin -) 1 applic TP DAILY [facility] Calcium Acetate (Phoslo -) 1,334 mg PO TIDCM [facility] Last Admin: 03/23/19 17:08 Dose: 1,334 mg Calcium Carbonate/Cholecalciferol (Os-Lucius 500+D -) 2 tab PO DAILY [facility] Diphenhydramine/Calamine/Camphor (Caladryl -) 1 applic TP BID [facility] Last Admin: 03/23/19 21:30 Dose: 1 applic Fentanyl (Sublimaze Injection -) 25 mcg IVPUSH [id number] PRN PRN Reason: PAIN-PACU ORDER X 4 DOSES ONLY Ferrous Sulfate (Feosol -) 325 mg PO TIDCM [facility] Heparin Sodium (Porcine) (Heparin -) 5,000 unit SQ TID [facility] Last Admin: 03/24/19 06:00 Dose: 5,000 unit Hydroxyzine Pamoate (Vistaril -) 25 mg PO Q8H PRN PRN Reason: FOR ITCHING Sodium Chloride (Normal Saline -) 250 mls @ 3,000 mls/hr IV PRN PRN PRN Reason: Hypotension during Dialysis Stop: 03/24/19 13:56 Sodium Chloride (Normal Saline -) 1,000 mls @ 42 mls/hr IV ASDIR [facility] Magnesium Oxide (Mag-Ox -) 800 mg PO ONCE ONE Stop: 03/24/19 07:55 Multivitamins/Minerals (Theragran-M) 1 each PO DAILY [facility] Prochlorperazine Edisylate (Compazine Injection -) 5 mg IM Q4H PRN PRN Reason: NAUSEA AND/OR VOMITING Last Admin: 03/24/19 06:01 Dose: 5 mg Sodium Bicarbonate (Sodium Bicarbonate -) 650 mg PO TID [facility] Last Admin: 03/24/19 06:06 Dose: 650 mg Thiamine HCl (Vitamin B1 -) 100 mg PO DAILY [facility] - Objective Vital Signs: Vital Signs Temperature 98.1 F 03/24/19 06:00 Pulse Rate 82 03/24/19 06:00 Respiratory Rate 18 03/24/19 06:00 Blood Pressure 138/76 03/24/19 06:00 O2 Sat by Pulse Oximetry (%) 97 03/23/19 21:00 Additional Findings/Remarks: Constitutional: Yes: Anxious, Poor Hygeine Eyes: Yes: WNL, Conjunctiva Clear HENT: Yes: WNL, Atraumatic, Normocephalic Neck: Yes: WNL, Supple, Trachea Midline, Lymphadenopathy (not present) Cardiovascular: Yes: Regular Rate and Rhythm, Murmur (systolic mummur) Respiratory: Yes: WNL, Regular, CTA Bilaterally Gastrointestinal: Yes: WNL, Normal Bowel Sounds ...Rectal Exam: Yes: Deferred Genitourinary: Yes: Cazares Present (cloudy urine) Breast(s): Yes: WNL Musculoskeletal: Yes: WNL Extremities: Yes: WNL Edema: Yes Edema: LLE: 1+, RLE: Trace Peripheral Pulses WNL: Yes Peripheral Pulses: Left Radial: 2+, Right Radial: 2+, Left Doralis Pedis: 2+, Right Dorsalis Pedis: 2+, Left Femoral: 2+, Right Femoral: 2+ Integumentary: Yes: Rash (Erythematous papular rash with excoriation valdes and scabs, circular in shape on the trunk and extremities. Each leason measuring about 1cm or less, often appearing in rows.). Permacath noted to R chest Neurological: Yes: WNL, Alert, Oriented ...Motor Strength: WNL Psychiatric: Yes: WNL Labs: CBC, BMP 03/24/19 05:50 03/24/19 05:58 INR, PTT INR 1.39 (0.83-1.09) H 03/23/19 05:30 - ....Imaging Chest X-ray: Report Reviewed, Image Reviewed (Permacath to [facility] with cath tip in upper aspect of RA) Problem List - Problems (1) COPD (chronic obstructive pulmonary disease) Assessment/Plan: duo nebs prn supplemental O2 as needed Code(s): J44.9 - CHRONIC OBSTRUCTIVE PULMONARY DISEASE, UNSPECIFIED (2) Prophylactic measure Assessment/Plan: FEN renal/diabetic diet monitor electrolytes no additional IVF needed at this time DVT heparin sq Dispo maintain on tele full code discharge planning Code(s): Z29.9 - ENCOUNTER FOR PROPHYLACTIC MEASURES, UNSPECIFIED (3) CHF (congestive heart failure) Assessment/Plan: Strict I's and O's Daily weights Cardiology consultation, Dr. Sheehan, appreciate recommendations TTE LV fx severly reduced, global hypokinesis Code(s): I50.9 - HEART FAILURE, UNSPECIFIED (4) Coronary artery disease Assessment/Plan: CAD s/p CABG (4 vessel, 2014) asa 81 daily TTE noted above Code(s): I25.10 - ATHSCL HEART DISEASE OF [place] CORONARY ARTERY W/O ANG PCTRS Qualifiers: Coronary Disease-Associated Artery/Lesion type: [place] artery [place] vs. transplanted heart: [place] heart Associated angina: without angina Qualified Code(s): I25.10 - Atherosclerotic heart disease of [place] coronary artery without angina pectoris (5) S/P CABG (coronary artery bypass graft) Code(s): Z95.1 - PRESENCE OF AORTOCORONARY BYPASS GRAFT (6) YVES (acute kidney injury) Assessment/Plan: BUN 72 Cr 6.1 -Renal u/s without evidence of hydronephrosis, do not suspect post renal cause at this time HD done yesterday appreciate renal consultation avoid nephrotoxic agents plan for AV fistula as outpt Code(s): N17.9 - ACUTE KIDNEY FAILURE, UNSPECIFIED (7) Hypocalcemia Assessment/Plan: Ca gluconate 1000mg IV given in ED Calcitriol 0.25mcg PO given in ED c/w Phoslo - 2 tabs w/ meals c/w Calcium 500mg/ Vit D 200u 2 tabs daily follow CMP, mag phos daily replete lytes PRN Code(s): E83.51 - HYPOCALCEMIA (8) Hyperphosphatemia Assessment/Plan: see above Code(s): E83.39 - OTHER DISORDERS OF PHOSPHORUS METABOLISM (9) Troponin I above reference range Assessment/Plan: 0.19 likely due to demand ischemia and YVES -no chest pain - trend troponin - if significant elevation would treat for NSTEMI Code(s): R79.89 - OTHER SPECIFIED ABNORMAL FINDINGS OF BLOOD CHEMISTRY (10) Rash and nonspecific skin eruption Assessment/Plan: recent cat scratch reported no lymadenopathy noted so unlikely cat scratch disease,will send bortella extreme pruritus partly due to uremia seen by dermatology- Dr Watson punch biopsy done yesterday-call office [phone] on 03/28 for results c/w calamine lotion to affected area and c/w atarax for puritus Code(s): R21 - RASH AND OTHER NONSPECIFIC SKIN ERUPTION (11) Anemia due to chronic kidney disease Assessment/Plan: hgb 8.0 hemodymanically stable will assess need for blood transfusion when on HD FeSO4/thiamine/MVI daily Code(s): N18.9 - CHRONIC KIDNEY DISEASE, UNSPECIFIED; D63.1 - ANEMIA IN CHRONIC KIDNEY DISEASE Visit type - Emergency Visit Emergency Visit: Yes ED Registration Date: 03/22/19 Care time: The patient presented to the Emergency Department on the above date and was hospitalized for further evaluation of their emergent condition. - New Patient This patient is new to me today: No - Critical Care Critical Care patient: No - Discharge Referral Referred to [facility] No
--- NOTE | 2019-03-24 08:05 | PN ---
Progress Note (short form) - Note Progress Note: Vascular Surgery 58yo F s/p Permacath placement, pt seen and examed at bedside. No issues overnight Last Vital Signs Temp Pulse Resp BP Pulse Ox 98.1 F 82 18 138/76 97 03/24/19 06:00 03/24/19 06:00 03/24/19 06:00 03/24/19 06:00 03/23/19 21:00 CBC, BMP 03/24/19 05:50 03/24/19 05:58 PE: Gen: A&O X3 Resp: breathing comfortably Chest: Rt IJ permacath in place, no drainage or erythema around catheter. A/P: ESRD s/p permacath placement -catheter is ready for immediate use -please contact vascular team if any issues -outpatient follow up for assessment of AV fistula placement if warrented.
[2019-03-24] MEDS: CALCIUM ACETATE 667 MG CAPSULE (FP) PO SCH ×3 (08:30→17:18)
[2019-03-24] MEDS ORDERED: MAGNESIUM OXIDE 400 MG TABLET (FP) PO ONE (08:45)
[2019-03-24] MEDS ORDERED: PT OWN MED DRAWER 7, Y5N ONE (09:02)
[2019-03-24] MEDS: THIAMINE HCL 100 MG TABLET (FP) PO SCH (09:06)
[2019-03-24] MEDS: FERROUS SO4 325 MG TABLET (FP) PO SCH ×3 (09:06→17:18)
[2019-03-24] MEDS: MULTIVITAMINS THER W-MINERALS COMBO TABLET (FP) PO SCH (09:07)
[2019-03-24] MEDS: BACITRACIN 15 GM TUBE TOPICAL OINTMENT TP SCH (09:07)
[2019-03-24] MEDS: CALCIUM 500MG/VIT-D 200 UNITS COMBO TABLET (FP) PO SCH (09:07)
[2019-03-24] MEDS: PRAMOXINE HCL/CALAMINE 177 ML LOTION TP SCH ×2 (09:08→21:28)
[2019-03-24] MEDS ORDERED: CEFTRIAXONE 2 GM-D5W BAG 2 GM/50 ML BAG IVPB SCH (10:00)
--- NOTE | 2019-03-24 12:08 | PN ---
Progress Note (short form) - Note Progress Note: PULMONARY s/p permacath placement. Denies shortness of breath. Feels tired. Vital Signs Period Temp Pulse Resp BP Sys/Horowitz Pulse Ox Last 24 Hr 97.6 F-98.7 F 82-95 16-18 108-182/41-82 96-100 Gen: NAD at rest Heart: RRR Lung: decreased breath sounds at the bases Abd: soft, nontender Ext: + edema CBC, BMP 03/24/19 05:50 03/24/19 05:58 Active Medications Albuterol/Ipratropium (Duoneb -) 1 amp NEB Q6H PRN PRN Reason: SHORTNESS OF BREATH Bacitracin (Bacitracin -) 1 applic TP DAILY [facility] Last Admin: 03/24/19 09:07 Dose: 1 applic Calcium Acetate (Phoslo -) 1,334 mg PO TIDCM [facility] Last Admin: 03/24/19 08:30 Dose: 1,334 mg Calcium Carbonate/Cholecalciferol (Os-Lucius 500+D -) 2 tab PO DAILY [facility] Last Admin: 03/24/19 09:07 Dose: 2 tab Diphenhydramine/Calamine/Camphor (Caladryl -) 1 applic TP BID [facility] Last Admin: 03/24/19 09:08 Dose: 1 applic Fentanyl (Sublimaze Injection -) 25 mcg IVPUSH [id number] PRN PRN Reason: PAIN-PACU ORDER X 4 DOSES ONLY Ferrous Sulfate (Feosol -) 325 mg PO TIDCM [facility] Last Admin: 03/24/19 09:06 Dose: 325 mg Heparin Sodium (Porcine) (Heparin -) 5,000 unit SQ TID [facility] Last Admin: 03/24/19 06:00 Dose: 5,000 unit Hydroxyzine Pamoate (Vistaril -) 25 mg PO Q8H PRN PRN Reason: FOR ITCHING Sodium Chloride (Normal Saline -) 250 mls @ 3,000 mls/hr IV PRN PRN PRN Reason: Hypotension during Dialysis Stop: 03/24/19 13:56 Sodium Chloride (Normal Saline -) 1,000 mls @ 42 mls/hr IV ASDIR [facility] Multivitamins/Minerals (Theragran-M) 1 each PO DAILY [facility] Last Admin: 03/24/19 09:07 Dose: 1 each Prochlorperazine Edisylate (Compazine Injection -) 5 mg IM Q4H PRN PRN Reason: NAUSEA AND/OR VOMITING Last Admin: 03/24/19 06:01 Dose: 5 mg Sodium Bicarbonate (Sodium Bicarbonate -) 650 mg PO TID [facility] Last Admin: 03/24/19 06:06 Dose: 650 mg Thiamine HCl (Vitamin B1 -) 100 mg PO DAILY [facility] Last Admin: 03/24/19 09:06 Dose: 100 mg A/P Acute on Chronic Systolic Heart Failure Mitral Regurgitation Pulmonary HTN Acute on Chronic Renal Failure now on HD COPD CAD s/p CABG +Troponins likely Demand Ischemia DM - HD per renal - daily weights - O2 to keep SpO2 >90% - inhaled bronchodilators as needed - repeat echocardiogram when euvolemic - DVT prophyalxis
--- NOTE | 2019-03-24 12:17 | OP ---
DATE OF OPERATION: 03/23/2019 PREOPERATIVE DIAGNOSIS: Chronic renal failure. POSTOPERATIVE DIAGNOSIS: Chronic renal failure. PROCEDURE: Insertion of Perma-Cath. SURGEON: Carlos Enrique Finch DO ANESTHESIA: Fractional. BLOOD LOSS: 20 mL. INDICATIONS: Patient is a 58-year-old female that comes in with chronic renal failure. She is having nausea, vomiting, and malaise. Sent over from her doctor's office into the hospital. On examination, she was found to be in acute renal failure, and it was decided that she would need a Perma-Cath. Vascular surgery was consulted by nephrology. Patient was seen. Patient was consented for the procedure understanding all risks, benefits, alternatives and then taken to the operating room. DESCRIPTION OF PROCEDURE: Once in the operating room, was laid on the operating room table in supine manner, and the area of the right neck and chest were prepped and draped in a sterile surgical manner. Under ultrasound guidance, we did visualize the right internal jugular vein, and 10 mL of lidocaine 1% was injected over it. We then took our micropuncture needle and punctured the right internal jugular vein under ultrasound guidance. Micropuncture wire was inserted. Micropuncture sheath was inserted. A 0.035 floppy guidewire was inserted under fluoroscopy. We then took lidocaine and injected 10 mL lidocaine 1% above and below the clavicle. We then took our 11 blade and made a 1-cm incision at the puncture site. We took our 15 blade and made a 1-cm incision below the clavicle. We then tunneled the Perma-Cath up to the puncture site. We then took our breakaway sheath, placed it over the guidewire into the vein under fluoroscopy. Inner cannula and guidewire were removed. Catheter was placed inside the sheath. Sheath was broken away as the catheter was placed inside the vein. Neck of the catheter was nice and smooth. Tip of the catheter was located outside the right atrium. We then elan back on each port of the catheter, and there was good flow. Heparinized saline was injected, 2000 units of IV heparin was injected into each port. We then went ahead and took 4-0 Biosyn, and 2 simple sutures were placed at the puncture site, 3-0 nylon was used, and the catheter was attached to the skin. Steri-Strips, 4 x 4's, Tegaderms were placed. Patient tolerated procedure with no complications. Patient was transferred to the PACU in stable condition where a chest x-ray will be ordered. CARLOS ENRIQUE FINCH DO [id number]
--- NOTE | 2019-03-24 12:58 | HOSP ---
Subjective - Review of Symptoms Cardiovascular: Yes: Other (elevated troponin 2.27, no ischemic changes on EKG, no c/o chest pain, palpiltations or SOB) Physical Examination Vital Signs: Vital Signs Temperature 98 F 03/24/19 09:00 Pulse Rate 82 03/24/19 09:00 Respiratory Rate 18 03/24/19 09:00 Blood Pressure 108/63 03/24/19 09:00 O2 Sat by Pulse Oximetry (%) 96 03/24/19 09:00 Cardiovascular: Yes: WNL, Regular Rate and Rhythm Respiratory: Yes: WNL, Regular, CTA Bilaterally Labs: CBC, BMP 03/24/19 05:50 03/24/19 05:58 Hospitalist Encounter Recommendations/Interventions: elevated troponin 2.27, no ischemic changes on EKG, no c/o chest pain, palpiltations or SOB will continue to trend noting that pt has CKD and may not clear troponins
--- NOTE | 2019-03-24 15:04 | PN ---
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 no complaints s/p permacath and HD yesterday liu has been removed no obstruction on ultrasound, bilateral calcifications no dysuria still some nausea today Vital Signs Period Temp Pulse Resp BP Sys/Horowitz Pulse Ox Last 24 Hr 97.8 F-98.7 F 68-95 16-18 108-178/41-89 96-100 cor-rrr llungs clear abd soft,nt ext no edema +permacath CBC, BMP 03/24/19 05:50 03/24/19 05:58 Microbiology 03/22/19 23:50 Urine - Urine Clean Catch Urine Culture - Final Strep Agalactiae Group B blood cultures sent a/p group b strep UTI, blood cultures sent and pending-will treat with vancomycin with HD for one week severe penicillin allergy renal failure- evaluation per renal history of CABG- f/u with cardiology, echo pending d/w hospitalist please call back if needed Problem List - Problems (1) Rash and nonspecific skin eruption Code(s): R21 - RASH AND OTHER NONSPECIFIC SKIN ERUPTION (2) UTI (urinary tract infection) Code(s): N39.0 - URINARY TRACT INFECTION, SITE NOT SPECIFIED (3) Acute kidney injury superimposed on CKD Code(s): N17.9 - ACUTE KIDNEY FAILURE, UNSPECIFIED; N18.9 - CHRONIC KIDNEY DISEASE, UNSPECIFIED (4) Penicillin allergy Code(s): Z88.0 - ALLERGY STATUS TO PENICILLIN
[2019-03-24] MEDS ORDERED: VANCOMYCIN 1 GRAM (PRE-DOCKED) 1,000 MG/250 ML BAG IVPB ONE (15:07)
--- NOTE | 2019-03-24 18:04 | PN ---
Progress Note, Physician History of Present Illness: Pt seen and examined at bedside. She is awake and alert. SHe tolerated HD yesterday. - Current Medication List Current Medications: Active Medications Albuterol/Ipratropium (Duoneb -) 1 amp NEB Q6H PRN PRN Reason: SHORTNESS OF BREATH Bacitracin (Bacitracin -) 1 applic TP DAILY [facility] Last Admin: 03/24/19 09:07 Dose: 1 applic Calcium Acetate (Phoslo -) 1,334 mg PO TIDCM [facility] Last Admin: 03/24/19 17:18 Dose: 1,334 mg Calcium Carbonate/Cholecalciferol (Os-Lucius 500+D -) 2 tab PO DAILY [facility] Last Admin: 03/24/19 09:07 Dose: 2 tab Diphenhydramine/Calamine/Camphor (Caladryl -) 1 applic TP BID [facility] Last Admin: 03/24/19 09:08 Dose: 1 applic Fentanyl (Sublimaze Injection -) 25 mcg IVPUSH [id number] PRN PRN Reason: PAIN-PACU ORDER X 4 DOSES ONLY Ferrous Sulfate (Feosol -) 325 mg PO TIDCM [facility] Last Admin: 03/24/19 17:18 Dose: 325 mg Heparin Sodium (Porcine) (Heparin -) 5,000 unit SQ TID [facility] Last Admin: 03/24/19 13:30 Dose: 5,000 unit Hydroxyzine Pamoate (Vistaril -) 25 mg PO Q8H PRN PRN Reason: FOR ITCHING Sodium Chloride (Normal Saline -) 250 mls @ 3,000 mls/hr IV PRN PRN PRN Reason: Hypotension during Dialysis Stop: 03/24/19 13:56 Sodium Chloride (Normal Saline -) 1,000 mls @ 42 mls/hr IV ASDIR [facility] Multivitamins/Minerals (Theragran-M) 1 each PO DAILY [facility] Last Admin: 03/24/19 09:07 Dose: 1 each Prochlorperazine Edisylate (Compazine Injection -) 5 mg IM Q4H PRN PRN Reason: NAUSEA AND/OR VOMITING Last Admin: 03/24/19 12:38 Dose: 5 mg Sodium Bicarbonate (Sodium Bicarbonate -) 650 mg PO TID [facility] Last Admin: 03/24/19 13:31 Dose: 650 mg Thiamine HCl (Vitamin B1 -) 100 mg PO DAILY [facility] Last Admin: 03/24/19 09:06 Dose: 100 mg - Objective Vital Signs: Vital Signs Temperature 98.2 F 03/24/19 14:25 Pulse Rate 68 03/24/19 14:25 Respiratory Rate 18 03/24/19 14:25 Blood Pressure 157/89 03/24/19 14:25 O2 Sat by Pulse Oximetry (%) 96 03/24/19 09:00 Constitutional: Yes: Calm Eyes: Yes: Conjunctiva Clear HENT: Yes: Atraumatic Neck: Yes: Supple Cardiovascular: Yes: S1, S2 Respiratory: Yes: CTA Bilaterally Gastrointestinal: Yes: Soft Musculoskeletal: Yes: WNL Edema: Yes Edema: LLE: Trace, RLE: Trace Neurological: Yes: Oriented Psychiatric: Yes: Oriented Labs: CBC, BMP 03/24/19 05:50 03/24/19 05:58 INR, PTT INR 1.39 (0.83-1.09) H 03/23/19 05:30 Assessment/Plan Current Medications Generic Name Dose Route Start Last Admin Trade Name Venkatesh PRN Reason Stop Dose Admin Albuterol/Ipratropium 1 amp 03/23/19 17:50 Duoneb - NEB Q6H PRN SHORTNESS OF BREATH Bacitracin 1 applic 03/24/19 10:00 03/24/19 09:07 Bacitracin - TP 1 applic DAILY [facility] Administration Calcium Acetate 1,334 mg 03/23/19 17:30 03/24/19 17:18 Phoslo - PO 1,334 mg TIDCM [facility] Administration Calcium Carbonate/Cholecalciferol 2 tab 03/24/19 10:00 03/24/19 09:07 Os-Lucius 500+D - PO 2 tab DAILY [facility] Administration Diphenhydramine/Calamine/Camphor 1 applic 03/23/19 22:00 03/24/19 09:08 Caladryl - TP 1 applic BID [facility] Administration Fentanyl 25 mcg 03/23/19 15:56 Sublimaze Injection - IVPUSH [id number] PRN PAIN-PACU ORDER X 4 DOSES ONLY Ferrous Sulfate 325 mg 03/24/19 08:45 03/24/19 17:18 Feosol - PO 325 mg TIDCM [facility] Administration Heparin Sodium (Porcine) 5,000 unit 03/23/19 22:00 03/24/19 13:30 Heparin - SQ 5,000 unit TID [facility] Administration Hydroxyzine Pamoate 25 mg 03/23/19 15:56 Vistaril - PO Q8H PRN FOR ITCHING Sodium Chloride 250 mls @ 3,000 mls/hr 03/23/19 15:56 Normal Saline - IV 03/24/19 13:56 PRN PRN Hypotension during Dialysis Sodium Chloride 1,000 mls @ 42 mls/hr 03/23/19 15:56 Normal Saline - IV ASDIR [facility] Multivitamins/Minerals 1 each 03/24/19 10:00 03/24/19 09:07 Theragran-M PO 1 each DAILY [facility] Administration Prochlorperazine Edisylate 5 mg 03/23/19 15:56 03/24/19 12:38 Compazine Injection - IM 5 mg Q4H PRN Administration NAUSEA AND/OR VOMITING Sodium Bicarbonate 650 mg 03/23/19 22:00 03/24/19 13:31 Sodium Bicarbonate - PO 650 mg TID [facility] Administration Thiamine HCl 100 mg 03/24/19 10:00 03/24/19 09:06 Vitamin B1 - PO 100 mg DAILY [facility] Administration Impression 1. CKD with YVES 2. CHF 3. DM 4. HTN 5. hyperlipidemia 6. nephrotic range proteinuria 7. CAD 8. elevated troponin Plan - follow renal workup - she tolerated HD yesterday - check cmp in am - HD tomorrow - check phos - d/c sodium bicarb
[2019-03-24] MEDS ORDERED: ASPIRIN 325 MG ENTERIC COATED TABLET (FP) PO ONE (18:32)
--- NOTE | 2019-03-24 23:41 | PN ---
Progress Note (short form) - Note Progress Note: Patient has been resting comfortably since her dialysis. She denies having chest pain or discomfort in the recent past. history of dyspnea prior to admission. Acute on chronic renal failure. Active Medications Albuterol/Ipratropium (Duoneb -) 1 amp NEB Q6H PRN PRN Reason: SHORTNESS OF BREATH Aspirin (Ecotrin -) 81 mg PO DAILY [facility] Bacitracin (Bacitracin -) 1 applic TP DAILY [facility] Last Admin: 03/24/19 09:07 Dose: 1 applic Calcium Acetate (Phoslo -) 1,334 mg PO TIDCM [facility] Last Admin: 03/24/19 17:18 Dose: 1,334 mg Calcium Carbonate/Cholecalciferol (Os-Lucius 500+D -) 2 tab PO DAILY [facility] Last Admin: 03/24/19 09:07 Dose: 2 tab Diphenhydramine/Calamine/Camphor (Caladryl -) 1 applic TP BID [facility] Last Admin: 03/24/19 21:28 Dose: 1 applic Fentanyl (Sublimaze Injection -) 25 mcg IVPUSH [id number] PRN PRN Reason: PAIN-PACU ORDER X 4 DOSES ONLY Ferrous Sulfate (Feosol -) 325 mg PO TIDCM ON [facility] Last Admin: 03/24/19 17:18 Dose: 325 mg Heparin Sodium (Porcine) (Heparin -) 5,000 unit SQ TID [facility] Last Admin: 03/24/19 21:27 Dose: 5,000 unit Hydroxyzine Pamoate (Vistaril -) 25 mg PO Q8H PRN PRN Reason: FOR ITCHING Sodium Chloride (Normal Saline -) 250 mls @ 3,000 mls/hr IV PRN PRN PRN Reason: Hypotension during Dialysis Stop: 03/24/19 13:56 Multivitamins/Minerals (Theragran-M) 1 each PO DAILY [facility] Last Admin: 03/24/19 09:07 Dose: 1 each Prochlorperazine Edisylate (Compazine Injection -) 5 mg IM Q4H PRN PRN Reason: NAUSEA AND/OR VOMITING Last Admin: 03/24/19 12:38 Dose: 5 mg Thiamine HCl (Vitamin B1 -) 100 mg PO DAILY [facility] Last Admin: 03/24/19 09:06 Dose: 100 mg 58-year-old female was in no acute distress, there was pallor, no cyanosis, clubbing or jaundice. Last Vital Signs Temp Pulse Resp BP Pulse Ox 98.1 F 85 18 138/73 97 03/24/19 22:00 03/24/19 22:00 03/24/19 22:00 03/24/19 22:00 03/24/19 21:00 NECK: Supple, no jugular venous distention, hepatojugular reflex was negative, carotids were 2+, upstrokes were normal, no bruits were heard. HEART: PMI is the fifth intercostal space, no heaves or thrills, S1 and S2 were normal, grade II/ decrescendo systolic murmur was heard at the apex and left sternal border. No diastolic murmur or gallops were heard.. LUNGS: Decreased breath sounds at the bases. No extraneous sounds were heard. ABDOMEN:, Soft, nontender, no hepatosplenomegaly, no palpable masses. EXTREMITIES: No calf tenderness or dependent edema. Laboratory Results - last 24 hr 03/23/19 03/23/19 03/23/19 06:00 06:30 06:30 WBC RBC Hgb Hct MCV MCH MCHC RDW Plt Count MPV Absolute Neuts (auto) Neutrophils % Lymphocytes % Monocytes % Eosinophils % Basophils % Nucleated RBC % Sodium Potassium Chloride Carbon Dioxide Anion Gap BUN Creatinine Est GFR (CKD-EPI)AfAm Est GFR (CKD-EPI)NonAf Random Glucose Calcium Phosphorus Magnesium Total Bilirubin AST ALT Alkaline Phosphatase Troponin I Total Protein Total Protein (PEP) 6.0 Albumin Albumin (PEP) 3.8 Globulin 2.2 Albumin/Globulin Ratio 1.7 Beta Globulins 0.7 Urine Eosinophils None seen YINA M-Ryan Not observed HAIDER Screen Negative Double Strand DNA Ab <1 03/24/19 03/24/19 03/24/19 05:50 05:58 15:51 WBC 7.1 RBC 2.69 L Hgb 8.0 L Hct 25.0 L MCV 92.7 MCH 29.8 MCHC 32.1 RDW 20.2 H Plt Count 134 MPV 8.1 Absolute Neuts (auto) 5.0 Neutrophils % 70.2 Lymphocytes % 14.0 D Monocytes % 11.9 H D Eosinophils % 2.7 Basophils % 1.2 Nucleated RBC % 0 Sodium 140 Potassium 4.1 Chloride 107 Carbon Dioxide 23 Anion Gap 11 BUN 72.8 H Creatinine 6.1 H Est GFR (CKD-EPI)AfAm 8.08 Est GFR (CKD-EPI)NonAf 6.97 Random Glucose 93 Calcium 7.5 L Phosphorus 6.7 H Magnesium 1.7 L Total Bilirubin 0.9 AST 17 ALT 19 Alkaline Phosphatase 87 Troponin I 2.27 H* 2.50 H* Total Protein 5.4 L Total Protein (PEP) Albumin 3.1 L Albumin (PEP) Globulin Albumin/Globulin Ratio Beta Globulins Urine Eosinophils YINA M-Ryan HAIDER Screen Double Strand DNA Ab IMRESSIONS: 1. Congestive heart failure. 2. Elevated troponin levels, etiology: a). Related to acute renal failure. b): Congestive heart failure. c). Ischemic heart disease. 3. Diabetes mellitus. 4. Coronary artery disease,status post myocardial infarction, status post m status post CABG. 5. Status post sternal wound infection (resolved). 6. Poor compliance. 7. Hypercholesterolemia. 8. Anemia. 9. Poor compliance. RECOMMENDATIONS: 1. Consider adding isosorbide mononitrate starting at 30 mg by mouth daily, if patient was to experience side effects then switched Ranexa 500 mg by mouth every 12 hours. 2. Once patient had been stabilized, consider Lexiscan myocardial perfusion study. 3. Risk modifications. 4. Further suggestions as necessary.
--- NOTE | 2019-03-25 03:00 | HOSP ---
Subjective - Review of Symptoms Events since last encounter: Rn called to report trop trend, ( 2.3 --. 2.5 --> 2.6 now) EkG shows no ischemic changes no c/o chest pain, palpiltations or SOB General: No: Chills, Night Sweats, Fatigue, Malaise, Appetite, Other HEENT: No: Head Aches, Visual Changes, Eye Pain, Ear Pain, Dysphasia, Sinus Congestion, Post Nasal Drip, Sore Throat, Other Pulmonary: No: Dyspnea, Cough, Pleuritic Chest Pain, Other Cardiovascular: No: Chest Pain, Palpitations, Orthopnea, Paroxysmal Noc. Dyspnea , Edema, Light Headedness, Other Gastrointestinal: No: Nausea, NOSYM, Vomiting, Abdominal Pain, Diarrhea, Constipation, Melena, Hematochezia, Other Genitourinary: No: Dysuria, NOSYM, Frequency, Incontinence, Hematuria, Retention , Other Musculoskeletal: No: No Symptoms, Back Pain, Crepitus, Decreased ROM, Extremity Pain, Joint Pain, Joint Swelling, Muscle Pain, Muscle Cramps, Muscle Weakness, Other Physical Examination Vital Signs: Vital Signs Temperature 98.1 F 03/24/19 22:00 Pulse Rate 85 03/24/19 22:00 Respiratory Rate 18 03/24/19 22:00 Blood Pressure 138/73 03/24/19 22:00 O2 Sat by Pulse Oximetry (%) 97 03/24/19 21:00 Constitutional: Yes: No Distress, Calm Eyes: Yes: Conjunctiva Clear, EOM Intact HENT: Yes: Atraumatic, Normocephalic Neck: Yes: Supple, Trachea Midline Cardiovascular: Yes: Regular Rate and Rhythm Respiratory: Yes: Regular, CTA Bilaterally Gastrointestinal: Yes: Normal Bowel Sounds, Soft Labs: CBC, BMP 03/24/19 05:50 03/24/19 05:58 Hospitalist Encounter Outcome: #elevated troponin trend 2/2 ? CKD, demand, CHF - EKG done no ischemic changes - patient denies chest pain, palpiltations or SOB - Cardiology following per cads recs if needed ( Consider adding isosorbide mononitrate starting at 30 mg by mouth daily, if patient was to experience side effects then switched Ranexa 500 mg by mouth every 12 hours), consider Lexiscan myocardial perfusion study.
[2019-03-25] MEDS: HEPARIN NA (PORCINE) 5,000 UNITS/ML 1ML VIAL SQ SCH ×3 (05:50→21:06)
[2019-03-25 06:57] LABS: BASO % 1.3 % (0-2.0); EOS % 4.1 % (0-4.5); HEMATOCRIT 27.4 % (32.4-45.2); HEMOGLOBIN 8.6 GM/dL (10.7-15.3); LYMPH % 16.9 % (8-40); MCH 29.7 pg (25.7-33.7); MCHC 31.5 g/dl (32.0-36.0); MEAN CELL VOLUME 94.2 fl (80-96); MEAN PLT VOLUME 8.6 fl (7.5-11.1); MONO % 14.4 % (3.8-10.2); NEUT % 63.3 % (42.8-82.8); PLATELET COUNT 140 K/MM3 (134-434); RBC 2.91 M/mm3 (3.60-5.2); RDW 19.6 % (11.6-15.6); WHITE BLOOD COUNT 7.8 K/mm3 (4.0-10.0)
[2019-03-25] MEDS ORDERED: PT OWN MED DRAWER 7, Y5N ONE ×2 (07:22→10:07)
[2019-03-25 07:36] LABS: ALBUMIN 2.8 g/dl (3.4-5.0); BILIRUBIN,TOTAL 0.8 mg/dL (0.2-1); CALCIUM 7.2 mg/dL (8.5-10.1); CREATININE 6.5 mg/dL (0.55-1.3); MAGNESIUM 1.7 mg/dL (1.8-2.4); PHOSPHOROUS 6.3 mg/dL (2.5-4.9); POTASSIUM 4.2 mmol/L (3.5-5.1); TOT PROT 5.1 g/dl (6.4-8.2)
--- NOTE | 2019-03-25 08:09 | PN ---
Progress Note, Physician Chief Complaint: In better spirits today. Feels much better after HD History of Present Illness: 58F with a PMH of DM retinopathy, DM, CAD s/p CABG (4 vessel, 2014) and CHF who presents to the ER for worsening SOB and malaise. 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 He spoke with her film cutter who recommended that she come to the ED for evaluation. She denies fever, chills, nausea, vomiting, CP, abd pain but admits to SOB and mild swelling in her L LE which "goes down at night". She also complains of a rash which started 2 weeks ago after being scratched by her cat and is pruritic and spreading. - Current Medication List Current Medications: Active Medications Albuterol/Ipratropium (Duoneb -) 1 amp NEB Q6H PRN PRN Reason: SHORTNESS OF BREATH Aspirin (Ecotrin -) 81 mg PO DAILY [facility] Bacitracin (Bacitracin -) 1 applic TP DAILY [facility] Last Admin: 03/24/19 09:07 Dose: 1 applic Calcium Acetate (Phoslo -) 1,334 mg PO TIDCM [facility] Last Admin: 03/24/19 17:18 Dose: 1,334 mg Calcium Carbonate/Cholecalciferol (Os-Lucius 500+D -) 2 tab PO DAILY [facility] Last Admin: 03/24/19 09:07 Dose: 2 tab Diphenhydramine/Calamine/Camphor (Caladryl -) 1 applic TP BID [facility] Last Admin: 03/24/19 21:28 Dose: 1 applic Fentanyl (Sublimaze Injection -) 25 mcg IVPUSH [id number] PRN PRN Reason: PAIN-PACU ORDER X 4 DOSES ONLY Ferrous Sulfate (Feosol -) 325 mg PO TIDCM [facility] Last Admin: 03/24/19 17:18 Dose: 325 mg Heparin Sodium (Porcine) (Heparin -) 5,000 unit SQ TID [facility] Last Admin: 03/25/19 05:50 Dose: 5,000 unit Hydroxyzine Pamoate (Vistaril -) 25 mg PO Q8H PRN PRN Reason: FOR ITCHING Sodium Chloride (Normal Saline -) 250 mls @ 3,000 mls/hr IV PRN PRN PRN Reason: Hypotension during Dialysis Stop: 03/24/19 13:56 Isosorbide Mononitrate (Imdur -) 30 mg PO DAILY [facility] Multivitamins/Minerals (Theragran-M) 1 each PO DAILY [facility] Last Admin: 03/24/19 09:07 Dose: 1 each Prochlorperazine Edisylate (Compazine Injection -) 5 mg IM Q4H PRN PRN Reason: NAUSEA AND/OR VOMITING Last Admin: 03/24/19 12:38 Dose: 5 mg Thiamine HCl (Vitamin B1 -) 100 mg PO DAILY [facility] Last Admin: 03/24/19 09:06 Dose: 100 mg - Objective Vital Signs: Vital Signs Temperature 97.5 F L 03/25/19 06:00 Pulse Rate 88 03/25/19 06:00 Respiratory Rate 18 03/25/19 06:00 Blood Pressure 164/63 03/25/19 06:00 O2 Sat by Pulse Oximetry (%) 97 03/24/19 21:00 Additional Findings/Remarks: Constitutional: Yes:calm, pleasant Eyes: Yes: WNL, Conjunctiva Clear HENT: Yes: WNL, Atraumatic, Normocephalic Neck: Yes: WNL, Supple, Trachea Midline, Lymphadenopathy (not present) Cardiovascular: Yes: Regular Rate and Rhythm, Murmur (systolic mummur) Respiratory: Yes: WNL, Regular, CTA Bilaterally Gastrointestinal: Yes: WNL, Normal Bowel Sounds ...Rectal Exam: Yes: Deferred Genitourinary: Yes: liu dc'd Breast(s): Yes: WNL Musculoskeletal: Yes: WNL Extremities: Yes: WNL Edema: Yes Edema: LLE: 1+, RLE: Trace Peripheral Pulses WNL: Yes Peripheral Pulses: Left Radial: 2+, Right Radial: 2+, Left Doralis Pedis: 2+, Right Dorsalis Pedis: 2+, Left Femoral: 2+, Right Femoral: 2+ Integumentary: Yes: Rash (Erythematous papular rash with excoriation valdes and scabs, circular in shape on the trunk and extremities. Each leason measuring about 1cm or less, often appearing in rows.). Permacath noted to R chest Neurological: Yes: WNL, Alert, Oriented ...Motor Strength: WNL Psychiatric: Yes: WNL Labs: CBC, BMP 11/08/19 06:15 03/25/19 06:15 INR, PTT INR 1.39 (0.83-1.09) H 03/23/19 05:30 Problem List - Problems (1) COPD (chronic obstructive pulmonary disease) Assessment/Plan: duo nebs prn supplemental O2 as needed Code(s): J44.9 - CHRONIC OBSTRUCTIVE PULMONARY DISEASE, UNSPECIFIED (2) Prophylactic measure Assessment/Plan: FEN renal/diabetic diet monitor electrolytes no additional IVF needed at this time DVT heparin sq Dispo maintain on tele full code discharge planning-HD center being arranged for DC Code(s): Z29.9 - ENCOUNTER FOR PROPHYLACTIC MEASURES, UNSPECIFIED (3) CHF (congestive heart failure) Assessment/Plan: Strict I's and O's Daily weights Cardiology consultation, Dr. Natarajan appreciate recommendations TTE LV fx severly reduced, global hypokinesis Code(s): I50.9 - HEART FAILURE, UNSPECIFIED (4) Coronary artery disease Assessment/Plan: CAD s/p CABG (4 vessel, 2014) asa 81 daily-given elevated troponins can not hold asa for proposed renal bx TTE noted above Code(s): I25.10 - ATHSCL HEART DISEASE OF [place] CORONARY ARTERY W/O ANG PCTRS Qualifiers: Coronary Disease-Associated Artery/Lesion type: [place] artery [place] vs. transplanted heart: [place] heart Associated angina: without angina Qualified Code(s): I25.10 - Atherosclerotic heart disease of [place] coronary artery without angina pectoris (5) S/P CABG (coronary artery bypass graft) Code(s): Z95.1 - PRESENCE OF AORTOCORONARY BYPASS GRAFT (6) YVES (acute kidney injury) Assessment/Plan: BUN 73 Cr 6.5 -Renal u/s without evidence of hydronephrosis, do not suspect post renal cause at this time HD done yesterday appreciate renal consultation avoid nephrotoxic agents plan for AV fistula as outpt Code(s): N17.9 - ACUTE KIDNEY FAILURE, UNSPECIFIED (7) Hypocalcemia Assessment/Plan: Ca gluconate 1000mg IV given in ED Calcitriol 0.25mcg PO given in ED c/w Phoslo - 2 tabs w/ meals c/w Calcium 500mg/ Vit D 200u 2 tabs daily follow CMP, mag phos daily replete lytes PRN Code(s): E83.51 - HYPOCALCEMIA (8) Hyperphosphatemia Assessment/Plan: see above Code(s): E83.39 - OTHER DISORDERS OF PHOSPHORUS METABOLISM (9) Troponin I above reference range Assessment/Plan: 0.19>2.27>2.3>2.5> likely due to demand ischemia and YVES no chest pain cont to trend troponin isosorbide mononitrate 30 mg started if patient was to experience side effects then switched Ranexa 500 mg q 12h consider Lexiscan myocardial perfusion study. Once euvolemic, plan for pharm MPI for further risk stratification. fasting lipids. in am Code(s): R79.89 - OTHER SPECIFIED ABNORMAL FINDINGS OF BLOOD CHEMISTRY (10) Rash and nonspecific skin eruption Assessment/Plan: recent cat scratch reported, bortonella negative extreme pruritus partly due to uremia seen by dermatology- Dr Watson punch biopsy done yesterday-call office [phone] on 03/28 for results c/w calamine lotion to affected area and c/w atarax for puritus Code(s): R21 - RASH AND OTHER NONSPECIFIC SKIN ERUPTION (11) Anemia due to chronic kidney disease Assessment/Plan: hgb 8.6 hemodymanically stable will assess need for blood transfusion when on HD FeSO4/thiamine/MVI daily Code(s): N18.9 - CHRONIC KIDNEY DISEASE, UNSPECIFIED; D63.1 - ANEMIA IN CHRONIC KIDNEY DISEASE (12) Pyuria Assessment/Plan: UA with 3+ leuk, nitrate -, WBC 442 group b strep UTI, blood cultures negative as per ID will treat with vancomycin with HD for one week Code(s): R82.81 - PYURIA Visit type - Emergency Visit Emergency Visit: Yes ED Registration Date: 03/22/19 Care time: The patient presented to the Emergency Department on the above date and was hospitalized for further evaluation of their emergent condition. - New Patient This patient is new to me today: No - Critical Care Critical Care patient: No - Discharge Referral Referred to [facility] Med [facility] No
[2019-03-25] MEDS: FERROUS SO4 325 MG TABLET (FP) PO SCH ×3 (08:40→17:07)
[2019-03-25] MEDS: CALCIUM ACETATE 667 MG CAPSULE (FP) PO SCH ×3 (08:40→17:07)
[2019-03-25] MEDS ORDERED: SODIUM CHLORIDE 250 ML IV PRN (09:25)
--- NOTE | 2019-03-25 10:04 | PN ---
Progress Note, Physician Chief Complaint: seen and examined Denies CP Denies SOB TELE: NSR - Current Medication List Current Medications: Active Medications Albuterol/Ipratropium (Duoneb -) 1 amp NEB Q6H PRN PRN Reason: SHORTNESS OF BREATH Aspirin (Ecotrin -) 81 mg PO DAILY [facility] Bacitracin (Bacitracin -) 1 applic TP DAILY [facility] Last Admin: 03/24/19 09:07 Dose: 1 applic Calcium Acetate (Phoslo -) 1,334 mg PO TIDCM [facility] Last Admin: 03/25/19 08:40 Dose: 1,334 mg Calcium Carbonate/Cholecalciferol (Os-Lucius 500+D -) 2 tab PO DAILY [facility] Last Admin: 03/24/19 09:07 Dose: 2 tab Diphenhydramine/Calamine/Camphor (Caladryl -) 1 applic TP BID [facility] Last Admin: 03/24/19 21:28 Dose: 1 applic Fentanyl (Sublimaze Injection -) 25 mcg IVPUSH [id number] PRN PRN Reason: PAIN-PACU ORDER X 4 DOSES ONLY Ferrous Sulfate (Feosol -) 325 mg PO TIDCM [facility] Last Admin: 03/25/19 08:40 Dose: 325 mg Heparin Sodium (Porcine) (Heparin -) 5,000 unit SQ TID [facility] Last Admin: 03/25/19 05:50 Dose: 5,000 unit Hydroxyzine Pamoate (Vistaril -) 25 mg PO Q8H PRN PRN Reason: FOR ITCHING Sodium Chloride (Normal Saline -) 250 mls @ 3,000 mls/hr IV PRN PRN PRN Reason: Hypotension during Dialysis Stop: 03/24/19 13:56 Sodium Chloride (Normal Saline -) 250 mls @ 3,000 mls/hr IV PRN PRN PRN Reason: Hypotension during Dialysis Stop: 03/26/19 09:25 Isosorbide Mononitrate (Imdur -) 30 mg PO DAILY [facility] Multivitamins/Minerals (Theragran-M) 1 each PO DAILY [facility] Last Admin: 03/24/19 09:07 Dose: 1 each Prochlorperazine Edisylate (Compazine Injection -) 5 mg IM Q4H PRN PRN Reason: NAUSEA AND/OR VOMITING Last Admin: 03/24/19 12:38 Dose: 5 mg Thiamine HCl (Vitamin B1 -) 100 mg PO DAILY [facility] Last Admin: 03/24/19 09:06 Dose: 100 mg - Objective Vital Signs: Vital Signs Temperature 98.8 F 03/25/19 08:44 Pulse Rate 87 03/25/19 08:44 Respiratory Rate 16 03/25/19 08:44 Blood Pressure 153/87 03/25/19 08:44 O2 Sat by Pulse Oximetry (%) 97 03/24/19 21:00 Constitutional: Yes: Calm Cardiovascular: Yes: Regular Rate and Rhythm Respiratory: Yes: CTA Bilaterally Gastrointestinal: Yes: Soft (NT) Edema: No Neurological: Yes: Alert, Oriented ...Motor Strength: WNL Labs: CBC, BMP 03/25/19 06:15 03/25/19 06:15 INR, PTT INR 1.39 (0.83-1.09) H 03/23/19 05:30 Laboratory Tests 03/22/19 03/23/19 03/23/19 18:11 00:20 05:30 WBC Hgb Plt Count Sodium Potassium BUN Creatinine Creatine Kinase 186 Creatine Kinase Index 7.6 H CK-MB (CK-2) 14.2 H Troponin I 0.15 H 0.18 H 0.19 H 03/24/19 03/24/19 03/25/19 05:58 15:51 01:30 WBC Hgb Plt Count Sodium Potassium BUN Creatinine Creatine Kinase Creatine Kinase Index CK-MB (CK-2) Troponin I 2.27 H* 2.50 H* 2.64 H* 03/25/19 03/25/19 06:15 06:15 WBC 7.8 Hgb 8.6 L Plt Count 140 Sodium 137 Potassium 4.2 BUN 73.0 H Creatinine 6.5 H Creatine Kinase Creatine Kinase Index CK-MB (CK-2) Troponin I 2.24 H* Microbiology 03/22/19 23:50 Urine - Urine Clean Catch Urine Culture - Final Strep Agalactiae Group B 03/23/19 18:00 Blood - Peripheral Venous Blood Culture - Preliminary NO GROWTH OBTAINED AFTER 24 HOURS, INCUBATION TO CONTINUE FOR 4 DAYS. 03/23/19 18:00 Blood - Peripheral Venous Blood Culture - Preliminary NO GROWTH OBTAINED AFTER 24 HOURS, INCUBATION TO CONTINUE FOR 4 DAYS. - ....Imaging EKG: Image Reviewed Assessment/Plan IMRESSIONS: 1. Congestive heart failure: severe LV dysfx (not new, since at least 2017) 2. Elevated troponin levels, etiology: a). Related to acute renal failure. b): Congestive heart failure. c). Ischemic heart disease. d.) Severe MR/TR and severe PHTN likely due to left sided failure, elevated EDP Do not suspect ACS 3. Diabetes mellitus. 4. Coronary artery disease,status post myocardial infarction, status post m status post CABG. 5. Status post sternal wound infection (resolved). 6. Poor compliance. 7. Hypercholesterolemia. 8. Anemia. 9. Poor compliance. RECOMMENDATIONS: 1. Continue ASA daily; Imdur added. 2. Would continue HD on telemetry to volume optimize. Once euvolemic, plan for pharm MPI for further risk stratification. 3. Fasting lipids.
[2019-03-25] MEDS: THIAMINE HCL 100 MG TABLET (FP) PO SCH (10:10)
[2019-03-25] MEDS: ASPIRIN COATED 81 MG TABLET.EC PO SCH (10:10)
[2019-03-25] MEDS: CALCIUM 500MG/VIT-D 200 UNITS COMBO TABLET (FP) PO SCH (10:10)
[2019-03-25] MEDS: ISOSORBIDE MONONITRATE 30 MG TAB.SR.24H (FP) PO SCH (10:11)
[2019-03-25] MEDS: MULTIVITAMINS THER W-MINERALS COMBO TABLET (FP) PO SCH (10:11)
[2019-03-25] MEDS: BACITRACIN 15 GM TUBE TOPICAL OINTMENT TP SCH (10:12)
[2019-03-25] MEDS: PRAMOXINE HCL/CALAMINE 177 ML LOTION TP SCH ×2 (10:13→21:06)
[2019-03-25 11:07] LABS: ANTIGLOMERULAR BASEMENT MEN.AB 5 units (0-20)
--- NOTE | 2019-03-25 12:47 | PN ---
Progress Note, Physician History of Present Illness: Pt seen and examine at bedside. She is awake and alert. She denies chest pain or shortness of breath. She does have some lower ext edema. - Current Medication List Current Medications: Active Medications Albuterol/Ipratropium (Duoneb -) 1 amp NEB Q6H PRN PRN Reason: SHORTNESS OF BREATH Aspirin (Ecotrin -) 81 mg PO DAILY [facility] Last Admin: 03/25/19 10:10 Dose: 81 mg Bacitracin (Bacitracin -) 1 applic TP DAILY [facility] Last Admin: 03/25/19 10:12 Dose: 1 applic Calcium Acetate (Phoslo -) 1,334 mg PO TIDCM [facility] Last Admin: 03/25/19 12:31 Dose: 1,334 mg Diphenhydramine/Calamine/Camphor (Caladryl -) 1 applic TP BID [facility] Last Admin: 03/25/19 10:13 Dose: 1 applic Fentanyl (Sublimaze Injection -) 25 mcg IVPUSH [id number] PRN PRN Reason: PAIN-PACU ORDER X 4 DOSES ONLY Ferrous Sulfate (Feosol -) 325 mg PO TIDCM [facility] Last Admin: 03/25/19 12:31 Dose: 325 mg Heparin Sodium (Porcine) (Heparin -) 5,000 unit SQ TID [facility] Last Admin: 03/25/19 05:50 Dose: 5,000 unit Hydroxyzine Pamoate (Vistaril -) 25 mg PO Q8H PRN PRN Reason: FOR ITCHING Sodium Chloride (Normal Saline -) 250 mls @ 3,000 mls/hr IV PRN PRN PRN Reason: Hypotension during Dialysis Stop: 03/26/19 09:25 Isosorbide Mononitrate (Imdur -) 30 mg PO DAILY [facility] Last Admin: 03/25/19 10:11 Dose: 30 mg Multivitamins/Minerals (Theragran-M) 1 each PO DAILY [facility] Last Admin: 03/25/19 10:11 Dose: 1 each Prochlorperazine Edisylate (Compazine Injection -) 5 mg IM Q4H PRN PRN Reason: NAUSEA AND/OR VOMITING Last Admin: 03/24/19 12:38 Dose: 5 mg Thiamine HCl (Vitamin B1 -) 100 mg PO DAILY [facility] Last Admin: 03/25/19 10:10 Dose: 100 mg - Objective Vital Signs: Vital Signs Temperature 98.8 F 03/25/19 08:44 Pulse Rate 87 03/25/19 08:44 Respiratory Rate 16 03/25/19 08:44 Blood Pressure 153/87 03/25/19 08:44 O2 Sat by Pulse Oximetry (%) 97 03/24/19 21:00 Constitutional: Yes: Calm Eyes: Yes: Conjunctiva Clear HENT: Yes: Atraumatic Neck: Yes: Supple Cardiovascular: Yes: S1, S2 Respiratory: Yes: CTA Bilaterally Gastrointestinal: Yes: Soft Musculoskeletal: Yes: WNL Edema: Yes Edema: LLE: Trace, RLE: Trace Neurological: Yes: Oriented Psychiatric: Yes: Oriented Labs: CBC, BMP 03/25/19 06:15 03/25/19 06:15 INR, PTT INR 1.39 (0.83-1.09) H 03/23/19 05:30 Assessment/Plan Current Medications Generic Name Dose Route Start Last Admin Trade Name Freq PRN Reason Stop Dose Admin Albuterol/Ipratropium 1 amp 03/23/19 17:50 Duoneb - NEB Q6H PRN SHORTNESS OF BREATH Aspirin 81 mg 03/25/19 10:00 03/25/19 10:10 Ecotrin - PO 81 mg DAILY [facility] Administration Bacitracin 1 applic 03/24/19 10:00 03/25/19 10:12 Bacitracin - TP 1 applic DAILY [facility] Administration Calcium Acetate 1,334 mg 03/23/19 17:30 03/25/19 12:31 Phoslo - PO 1,334 mg TIDCM [facility] Administration Diphenhydramine/Calamine/Camphor 1 applic 03/23/19 22:00 03/25/19 10:13 Caladryl - TP 1 applic BID [facility] Administration Fentanyl 25 mcg 03/23/19 15:56 Sublimaze Injection - IVPUSH [id number] PRN PAIN-PACU ORDER X 4 DOSES ONLY Ferrous Sulfate 325 mg 03/24/19 08:45 03/25/19 12:31 Feosol - PO 325 mg TIDCM [facility] Administration Heparin Sodium (Porcine) 5,000 unit 03/23/19 22:00 03/25/19 05:50 Heparin - SQ 5,000 unit TID [facility] Administration Hydroxyzine Pamoate 25 mg 03/23/19 15:56 Vistaril - PO Q8H PRN FOR ITCHING Sodium Chloride 250 mls @ 3,000 mls/hr 03/25/19 09:25 Normal Saline - IV 03/26/19 09:25 PRN PRN Hypotension during Dialysis Isosorbide Mononitrate 30 mg 03/25/19 10:00 03/25/19 10:11 Imdur - PO 30 mg DAILY [facility] Administration Multivitamins/Minerals 1 each 03/24/19 10:00 03/25/19 10:11 Theragran-M PO 1 each DAILY [facility] Administration Prochlorperazine Edisylate 5 mg 03/23/19 15:56 03/24/19 12:38 Compazine Injection - IM 5 mg Q4H PRN Administration NAUSEA AND/OR VOMITING Thiamine HCl 100 mg 03/24/19 10:00 03/25/19 10:10 Vitamin B1 - PO 100 mg DAILY [facility] Administration Impression 1. CKD with YVES 2. CHF 3. DM 4. HTN 5. hyperlipidemia 6. nephrotic range proteinuria 7. CAD 8. elevated troponin Plan - HD today - cardio workup in progress - pt on asa for pos trops, unable to get kidney biopsy at this time - final tester worsened this morning - pt does still make some urine - will stop calcium supplements as they nauseate her - phos improving - cont phoslo for now
--- NOTE | 2019-03-25 13:25 | PN ---
Progress Note, Physician History of Present Illness: PULMONARY COMFORTABLE,ON HD,-RESP DISTRESS - Current Medication List Current Medications: Active Medications Albuterol/Ipratropium (Duoneb -) 1 amp NEB Q6H PRN PRN Reason: SHORTNESS OF BREATH Aspirin (Ecotrin -) 81 mg PO DAILY [facility] Last Admin: 03/25/19 10:10 Dose: 81 mg Bacitracin (Bacitracin -) 1 applic TP DAILY [facility] Last Admin: 03/25/19 10:12 Dose: 1 applic Calcium Acetate (Phoslo -) 1,334 mg PO TIDCM [facility] Last Admin: 03/25/19 12:31 Dose: 1,334 mg Diphenhydramine/Calamine/Camphor (Caladryl -) 1 applic TP BID [facility] Last Admin: 03/25/19 10:13 Dose: 1 applic Fentanyl (Sublimaze Injection -) 25 mcg IVPUSH [id number] PRN PRN Reason: PAIN-PACU ORDER X 4 DOSES ONLY Ferrous Sulfate (Feosol -) 325 mg PO TIDCM [facility] Last Admin: 03/25/19 12:31 Dose: 325 mg Heparin Sodium (Porcine) (Heparin -) 5,000 unit SQ TID [facility] Last Admin: 03/25/19 05:50 Dose: 5,000 unit Hydroxyzine Pamoate (Vistaril -) 25 mg PO Q8H PRN PRN Reason: FOR ITCHING Sodium Chloride (Normal Saline -) 250 mls @ 3,000 mls/hr IV PRN PRN PRN Reason: Hypotension during Dialysis Stop: 03/26/19 09:25 Isosorbide Mononitrate (Imdur -) 30 mg PO DAILY [facility] Last Admin: 03/25/19 10:11 Dose: 30 mg Multivitamins/Minerals (Theragran-M) 1 each PO DAILY [facility] Last Admin: 03/25/19 10:11 Dose: 1 each Prochlorperazine Edisylate (Compazine Injection -) 5 mg IM Q4H PRN PRN Reason: NAUSEA AND/OR VOMITING Last Admin: 03/24/19 12:38 Dose: 5 mg Thiamine HCl (Vitamin B1 -) 100 mg PO DAILY [facility] Last Admin: 03/25/19 10:10 Dose: 100 mg - Objective Vital Signs: Vital Signs Temperature 98.8 F 03/25/19 08:44 Pulse Rate 87 03/25/19 08:44 Respiratory Rate 16 03/25/19 08:44 Blood Pressure 153/87 03/25/19 08:44 O2 Sat by Pulse Oximetry (%) 97 03/24/19 21:00 Constitutional: Yes: Well Nourished, Calm Eyes: Yes: WNL HENT: Yes: WNL Neck: Yes: WNL Cardiovascular: Yes: Regular Rate and Rhythm, S1, S2 Respiratory: Yes: Diminished Gastrointestinal: Yes: Normal Bowel Sounds, Soft Extremities: Yes: WNL Edema: No Labs: CBC, BMP 03/25/19 06:15 03/25/19 06:15 INR, PTT INR 1.39 (0.83-1.09) H 03/23/19 05:30 Problem List - Problems (1) Uremic pruritus Code(s): L29.9 - PRURITUS, UNSPECIFIED (2) COPD (chronic obstructive pulmonary disease) Code(s): J44.9 - CHRONIC OBSTRUCTIVE PULMONARY DISEASE, UNSPECIFIED (3) Dyspnea Code(s): R06.00 - DYSPNEA, UNSPECIFIED (4) Xygov-yh-veuacav kidney injury Code(s): N17.9 - ACUTE KIDNEY FAILURE, UNSPECIFIED; N18.9 - CHRONIC KIDNEY DISEASE, UNSPECIFIED (5) CHF (congestive heart failure) Code(s): I50.9 - HEART FAILURE, UNSPECIFIED (6) S/P CABG (coronary artery bypass graft) Code(s): Z95.1 - PRESENCE OF AORTOCORONARY BYPASS GRAFT (7) Troponin I above reference range Code(s): R79.89 - OTHER SPECIFIED ABNORMAL FINDINGS OF BLOOD CHEMISTRY Assessment/Plan IMP DYSPNEA IMPROVED ACUTE ON CHRONIC CHF IMPROVED ACUTE ON CHRONIC KIDNEY FAILURE SEVERE LV SYSTOLIC DYFUNCTION DM COPD NOT IN ACUTE EXACERBATION ASHD S/P CABG + TROPONIN H/O TOBACCO USE LIKELY UREMIC PRURITIS PULMONARY HTN SEVERE MR PLAN HD PER RENAL O2 MONITOR LYTES,RENAL FUNCTION TREND TROPONIN F/U CHEST X-RAYS DR CHUA Problem List - Problems (1) Uremic pruritus Code(s): L29.9 - PRURITUS, UNSPECIFIED (2) COPD (chronic obstructive pulmonary disease) Code(s): J44.9 - CHRONIC OBSTRUCTIVE PULMONARY DISEASE, UNSPECIFIED (3) Dyspnea Code(s): R06.00 - DYSPNEA, UNSPECIFIED (4) Guygi-bo-aaeurug kidney injury Code(s): N17.9 - ACUTE KIDNEY FAILURE, UNSPECIFIED; N18.9 - CHRONIC KIDNEY DISEASE, UNSPECIFIED (5) CHF (congestive heart failure) Code(s): I50.9 - HEART FAILURE, UNSPECIFIED (6) S/P CABG (coronary artery bypass graft) Code(s): Z95.1 - PRESENCE OF AORTOCORONARY BYPASS GRAFT (7) Troponin I above reference range Code(s): R79.89 - OTHER SPECIFIED ABNORMAL FINDINGS OF BLOOD CHEMISTRY
--- NOTE | 2019-03-25 13:49 | EKG ---
Test Reason : Blood Pressure : / mmHG Vent. Rate : 086 BPM Atrial Rate : 086 BPM P-R Int : 166 ms QRS Dur : 104 ms QT Int : 416 ms P-R-T Axes : 068 -11 149 degrees QTc Int : 497 ms NORMAL SINUS RHYTHM MINIMAL VOLTAGE CRITERIA FOR LVH, MAY BE NORMAL VARIANT INFERIOR INFARCT (CITED ON OR BEFORE 08-FEB-2015) ANTEROLATERAL INFARCT (CITED ON OR BEFORE 19-MAY-2016) ABNORMAL ECG WHEN COMPARED WITH ECG OF 25-MAR-2019 02:17, NO SIGNIFICANT CHANGE WAS FOUND Confirmed by LUPE FERNANDEZ MD ([id number]) on 03/25/2019 1:49:24 PM Referred By: Confirmed By:LUPE FERNANDEZ MD
--- NOTE | 2019-03-25 13:55 | EKG ---
Test Reason : Blood Pressure : / mmHG Vent. Rate : 084 BPM Atrial Rate : 084 BPM P-R Int : 164 ms QRS Dur : 104 ms QT Int : 420 ms P-R-T Axes : 063 -08 149 degrees QTc Int : 496 ms NORMAL SINUS RHYTHM INFERIOR INFARCT (CITED ON OR BEFORE 08-FEB-2015) ANTEROLATERAL INFARCT , AGE UNDETERMINED ABNORMAL ECG WHEN COMPARED WITH ECG OF 24-MAR-2019 14:12, NO SIGNIFICANT CHANGE WAS FOUND Confirmed by LUPE FERNANDEZ MD ([id number]) on 03/25/2019 1:54:58 PM Referred By: Confirmed By:LUPE FERNANDEZ MD
--- NOTE | 2019-03-25 14:03 | EKG ---
Test Reason : Blood Pressure : / mmHG Vent. Rate : 085 BPM Atrial Rate : 085 BPM P-R Int : 168 ms QRS Dur : 104 ms QT Int : 426 ms P-R-T Axes : 064 -12 161 degrees QTc Int : 506 ms NORMAL SINUS RHYTHM MODERATE VOLTAGE CRITERIA FOR LVH, MAY BE NORMAL VARIANT INFERIOR INFARCT (CITED ON OR BEFORE 08-FEB-2015) PROLONGED QT ABNORMAL ECG WHEN COMPARED WITH ECG OF 23-MAR-2019 00:39, NO SIGNIFICANT CHANGE WAS FOUND Confirmed by LUPE FERNANDEZ MD ([id number]) on 03/25/2019 2:03:00 PM Referred By: DAMON [address]ILL[address] DR Confirmed By:LUPE FERNANDEZ MD
[2019-03-25 16:08] LABS: ATYPICAL pANCA <1:20 titer (Neg:<1:20); C-ANCA <1:20 titer (Neg:<1:20)
[2019-03-25 22:08] LABS: HEP B CORE AB, TOT Negative (Negative)
[2019-03-26] MEDS ORDERED: PT OWN MED DRAWER 7, Y5N ONE ×3 (05:34→20:53)
[2019-03-26] MEDS: HEPARIN NA (PORCINE) 5,000 UNITS/ML 1ML VIAL SQ SCH ×3 (05:39→21:00)
[2019-03-26 07:46] LABS: BASO % 1.1 % (0-2.0); EOS % 2.8 % (0-4.5); HEMATOCRIT 27.1 % (32.4-45.2); HEMOGLOBIN 8.6 GM/dL (10.7-15.3); LYMPH % 14.9 % (8-40); MCH 29.8 pg (25.7-33.7); MCHC 31.6 g/dl (32.0-36.0); MEAN CELL VOLUME 94.3 fl (80-96); MEAN PLT VOLUME 8.5 fl (7.5-11.1); MONO % 13.9 % (3.8-10.2); NEUT % 67.3 % (42.8-82.8); PLATELET COUNT 128 K/MM3 (134-434); RBC 2.87 M/mm3 (3.60-5.2); RDW 19.6 % (11.6-15.6); WHITE BLOOD COUNT 8.4 K/mm3 (4.0-10.0)
[2019-03-26 07:54] LABS: CHOLESTEROL 114 mg/dL (50-200); HDL CHOLESTEROL 38 mg/dL (40-60); LDL CHOLESTEROL (ONLY SJRH) 69 mg/dL (5-100); TRIGLYCERIDES 102 mg/dL (0-150)
[2019-03-26 07:55] LABS: BILIRUBIN,TOTAL 1.1 mg/dL (0.2-1); BLOOD UREA NITROGEN 41.7 mg/dL (7-18); CALCIUM 7.9 mg/dL (8.5-10.1); CREATININE 4.2 mg/dL (0.55-1.3); MAGNESIUM 1.8 mg/dL (1.8-2.4); PHOSPHOROUS 3.9 mg/dL (2.5-4.9); POTASSIUM 4.2 mmol/L (3.5-5.1); TOT PROT 5.5 g/dl (6.4-8.2)
[2019-03-26] MEDS ORDERED: VANCOMYCIN 1 GM in D5W (PRE-DOCKED) 1,000 MG/250 ML IVPB ONE (07:57)
--- NOTE | 2019-03-26 07:58 | PN ---
Progress Note, Physician Chief Complaint: Feels much stronger today. States puritis is better. History of Present Illness: 58F with a PMH of DM retinopathy, DM, CAD s/p CABG (4 vessel, 2014) and CHF who presents to the ER for worsening SOB and malaise. 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 He spoke with her chicken raiser who recommended that she come to the ED for evaluation. She denies fever, chills, nausea, vomiting, CP, abd pain but admits to SOB and mild swelling in her L LE which "goes down at night". She also complains of a rash which started 2 weeks ago after being scratched by her cat and is pruritic and spreading. - Current Medication List Current Medications: Active Medications Albuterol/Ipratropium (Duoneb -) 1 amp NEB Q6H PRN PRN Reason: SHORTNESS OF BREATH Aspirin (Ecotrin -) 81 mg PO DAILY [facility] Last Admin: 03/25/19 10:10 Dose: 81 mg Bacitracin (Bacitracin -) 1 applic TP DAILY [facility] Last Admin: 03/25/19 10:12 Dose: 1 applic Calcium Acetate (Phoslo -) 1,334 mg PO TIDCM [facility] Last Admin: 03/25/19 17:07 Dose: 1,334 mg Diphenhydramine/Calamine/Camphor (Caladryl -) 1 applic TP BID [facility] Last Admin: 03/25/19 21:06 Dose: 1 applic Fentanyl (Sublimaze Injection -) 25 mcg IVPUSH [id number] PRN PRN Reason: PAIN-PACU ORDER X 4 DOSES ONLY Ferrous Sulfate (Feosol -) 325 mg PO TIDCM [facility] Last Admin: 03/25/19 17:07 Dose: 325 mg Heparin Sodium (Porcine) (Heparin -) 5,000 unit SQ TID [facility] Last Admin: 03/26/19 05:39 Dose: 5,000 unit Hydroxyzine Pamoate (Vistaril -) 25 mg PO Q8H PRN PRN Reason: FOR ITCHING Sodium Chloride (Normal Saline -) 250 mls @ 3,000 mls/hr IV PRN PRN PRN Reason: Hypotension during Dialysis Stop: 03/26/19 09:25 Isosorbide Mononitrate (Imdur -) 30 mg PO DAILY [facility] Last Admin: 03/25/19 10:11 Dose: 30 mg Multivitamins/Minerals (Theragran-M) 1 each PO DAILY [facility] Last Admin: 03/25/19 10:11 Dose: 1 each Prochlorperazine Edisylate (Compazine Injection -) 5 mg IM Q4H PRN PRN Reason: NAUSEA AND/OR VOMITING Last Admin: 03/24/19 12:38 Dose: 5 mg Thiamine HCl (Vitamin B1 -) 100 mg PO DAILY [facility] Last Admin: 03/25/19 10:10 Dose: 100 mg - Objective Vital Signs: Vital Signs Temperature 97.9 F 03/26/19 02:00 Pulse Rate 82 03/26/19 05:55 Respiratory Rate 20 03/26/19 05:55 Blood Pressure 137/52 L 03/26/19 05:55 O2 Sat by Pulse Oximetry (%) 99 03/25/19 09:00 Additional Findings/Remarks: Constitutional: Yes:calm, pleasant Eyes: Yes: WNL, Conjunctiva Clear HENT: Yes: WNL, Atraumatic, Normocephalic Neck: Yes: WNL, Supple, Trachea Midline, Lymphadenopathy (not present) Cardiovascular: Yes: Regular Rate and Rhythm, Murmur (systolic mummur) Respiratory: Yes: WNL, Regular, CTA Bilaterally Gastrointestinal: Yes: WNL, Normal Bowel Sounds ...Rectal Exam: Yes: Deferred Genitourinary: Yes: liu dc'd Breast(s): Yes: WNL Musculoskeletal: Yes: WNL Extremities: Yes: WNL Edema: Yes Edema: LLE: 1+, RLE: Trace Peripheral Pulses WNL: Yes Peripheral Pulses: Left Radial: 2+, Right Radial: 2+, Left Doralis Pedis: 2+, Right Dorsalis Pedis: 2+, Left Femoral: 2+, Right Femoral: 2+ Integumentary: Yes: Rash (Erythematous papular rash with excoriation valdes and scabs, circular in shape on the trunk and extremities. Each leason measuring about 1cm or less, often appearing in rows.). Permacath noted to R chest Neurological: Yes: WNL, Alert, Oriented ...Motor Strength: WNL Psychiatric: Yes: WNL Labs: CBC, BMP 03/26/19 06:00 INR, PTT INR 1.39 (0.83-1.09) H 03/23/19 05:30 Problem List - Problems (1) COPD (chronic obstructive pulmonary disease) Assessment/Plan: duo nebs prn supplemental O2 as needed appreciated pulmonary consultation Code(s): J44.9 - CHRONIC OBSTRUCTIVE PULMONARY DISEASE, UNSPECIFIED (2) Prophylactic measure Assessment/Plan: FEN renal/diabetic diet monitor electrolytes no additional IVF needed at this time DVT heparin sq Dispo maintain on tele full code discharge planning-HD center being arranged for DC Code(s): Z29.9 - ENCOUNTER FOR PROPHYLACTIC MEASURES, UNSPECIFIED (3) CHF (congestive heart failure) Assessment/Plan: Strict I's and O's Daily weights Cardiology consultation, Dr. Alford appreciate recommendations TTE LV fx severly reduced, global hypokinesis Pt reports normal stress test earlier this year at [facility], would obtain results on tues Code(s): I50.9 - HEART FAILURE, UNSPECIFIED (4) Coronary artery disease Assessment/Plan: CAD s/p CABG (4 vessel, 2014) asa 81 daily-given elevated troponins can not hold asa for proposed renal bx TTE noted above Troponins trended down, EKG without ischemic changes no need to further trend Code(s): I25.10 - ATHSCL HEART DISEASE OF [place] CORONARY ARTERY W/O ANG PCTRS Qualifiers: Coronary Disease-Associated Artery/Lesion type: [place] artery [place] vs. transplanted heart: [place] heart Associated angina: without angina Qualified Code(s): I25.10 - Atherosclerotic heart disease of [place] coronary artery without angina pectoris (5) S/P CABG (coronary artery bypass graft) Assessment/Plan: Pt reports normal stress test earlier this year at [facility], would obtain results. Code(s): Z95.1 - PRESENCE OF AORTOCORONARY BYPASS GRAFT (6) YVES (acute kidney injury) Assessment/Plan: BUN 41 Cr 4.2 -Renal u/s without evidence of hydronephrosis, do not suspect post renal cause at this time HD done yesterday, tolerated well. Took off .5L appreciate renal consultation avoid nephrotoxic agents plan for AV fistula as outpt Code(s): N17.9 - ACUTE KIDNEY FAILURE, UNSPECIFIED (7) Hypocalcemia Assessment/Plan: Ca gluconate 1000mg IV given in ED Calcitriol 0.25mcg PO given in ED c/w Phoslo - 2 tabs w/ meals c/w Calcium 500mg/ Vit D 200u 2 tabs daily follow CMP, mag phos daily replete lytes PRN Code(s): E83.51 - HYPOCALCEMIA (8) Hyperphosphatemia Assessment/Plan: see above Code(s): E83.39 - OTHER DISORDERS OF PHOSPHORUS METABOLISM (9) Troponin I above reference range Assessment/Plan: 0.19>2.27>2.3>2.5> 1.7 likely due to demand ischemia and YVES no chest pain no need to further trend troponin c/w isosorbide mononitrate 30 mg started-tolerating well-if experiences s/e can change to ranexa consider Lexiscan myocardial perfusion study when more stable & euvolemic fasting lipids: CHol 114, LDL 69, HDL 38. Given risk factors will start a low dose statin Code(s): R79.89 - OTHER SPECIFIED ABNORMAL FINDINGS OF BLOOD CHEMISTRY (10) Rash and nonspecific skin eruption Assessment/Plan: recent cat scratch reported, bortonella negative extreme pruritus partly due to uremia seen by dermatology- Dr Watson punch biopsy done yesterday-call office [phone] on 03/28 for results c/w calamine lotion to affected area and c/w atarax for puritus Code(s): R21 - RASH AND OTHER NONSPECIFIC SKIN ERUPTION (11) Anemia due to chronic kidney disease Assessment/Plan: hgb 8.7 hemodymanically stable will re-assess need for blood transfusion when on HD FeSO4/thiamine/MVI daily Code(s): N18.9 - CHRONIC KIDNEY DISEASE, UNSPECIFIED; D63.1 - ANEMIA IN CHRONIC KIDNEY DISEASE (12) Pyuria Assessment/Plan: UA with 3+ leuk, nitrate -, WBC 442 group b strep UTI, sensitivites pending , blood cultures negative as per ID will treat with vancomycin with HD for one week dosing to level (Vanc 10.9) Code(s): R82.81 - PYURIA Visit type - Emergency Visit Emergency Visit: Yes ED Registration Date: 03/22/19 Care time: The patient presented to the Emergency Department on the above date and was hospitalized for further evaluation of their emergent condition. - New Patient This patient is new to me today: No - Critical Care Critical Care patient: No - Discharge Referral Referred to [facility] No
[2019-03-26] MEDS: FERROUS SO4 325 MG TABLET (FP) PO SCH ×3 (08:38→17:11)
[2019-03-26] MEDS: CALCIUM ACETATE 667 MG CAPSULE (FP) PO SCH ×3 (08:38→17:11)
[2019-03-26] MEDS: ASPIRIN COATED 81 MG TABLET.EC PO SCH (10:09)
[2019-03-26] MEDS: THIAMINE HCL 100 MG TABLET (FP) PO SCH (10:09)
[2019-03-26] MEDS: PRAMOXINE HCL/CALAMINE 177 ML LOTION TP SCH ×2 (10:09→21:00)
[2019-03-26] MEDS: MULTIVITAMINS THER W-MINERALS COMBO TABLET (FP) PO SCH (10:09)
[2019-03-26] MEDS: ISOSORBIDE MONONITRATE 30 MG TAB.SR.24H (FP) PO SCH (10:09)
[2019-03-26] MEDS: BACITRACIN 15 GM TUBE TOPICAL OINTMENT TP SCH (10:10)
--- NOTE | 2019-03-26 10:52 | PN ---
Progress Note (short form) - Note Progress Note: s: no cp sob palps dizzy TELE: SR Current Medications Generic Name Dose Route Start Last Admin Trade Name Freq PRN Reason Stop Dose Admin Albuterol/Ipratropium 1 amp 03/23/19 17:50 Duoneb - NEB Q6H PRN SHORTNESS OF BREATH Aspirin 81 mg 03/25/19 10:00 03/26/19 10:09 Ecotrin - PO 81 mg DAILY [facility] Administration Bacitracin 1 applic 03/24/19 10:00 03/26/19 10:10 Bacitracin - TP 1 applic DAILY [facility] Administration Calcium Acetate 1,334 mg 03/23/19 17:30 03/26/19 08:38 Phoslo - PO 1,334 mg TIDCM [facility] Administration Diphenhydramine/Calamine/Camphor 1 applic 03/23/19 22:00 03/26/19 10:09 Caladryl - TP 1 applic BID [facility] Administration Fentanyl 25 mcg 03/23/19 15:56 Sublimaze Injection - IVPUSH [id number] PRN PAIN-PACU ORDER X 4 DOSES ONLY Ferrous Sulfate 325 mg 03/24/19 08:45 03/26/19 08:38 Feosol - PO 325 mg TIDCM [facility] Administration Heparin Sodium (Porcine) 5,000 unit 03/23/19 22:00 03/26/19 05:39 Heparin - SQ 5,000 unit TID [facility] Administration Hydroxyzine Pamoate 25 mg 03/23/19 15:56 Vistaril - PO Q8H PRN FOR ITCHING Isosorbide Mononitrate 30 mg 03/25/19 10:00 03/26/19 10:09 Imdur - PO 30 mg DAILY [facility] Administration Multivitamins/Minerals 1 each 03/24/19 10:00 03/26/19 10:09 Theragran-M PO 1 each DAILY [facility] Administration Prochlorperazine Edisylate 5 mg 03/23/19 15:56 03/24/19 12:38 Compazine Injection - IM 5 mg Q4H PRN Administration NAUSEA AND/OR VOMITING Thiamine HCl 100 mg 03/24/19 10:00 03/26/19 10:09 Vitamin B1 - PO 100 mg DAILY [facility] Administration Vital Signs Period Temp Pulse Resp BP Sys/Horowitz Pulse Ox Last 24 Hr 97.5 F-98.0 F 82-96 18-20 133-182/37-76 Constitutional: Yes: Calm Cardiovascular: Yes: Regular Rate and Rhythm Respiratory: Yes: CTA Bilaterally Gastrointestinal: Yes: Soft (NT) Edema: No Neurological: Yes: Alert, Oriented no jaundice diaphoresis Labs: CBC, BMP 03/26/19 06:00 03/26/19 06:00 - ....Imaging EKG: Image Reviewed Assessment/Plan IMRESSIONS: 1. Congestive heart failure: severe LV dysfx (not new, since at least 2017) 2. Elevated troponin levels, etiology: a). Related to acute renal failure. b): Congestive heart failure. c). Ischemic heart disease. d.) Severe MR/TR and severe PHTN likely due to left sided failure, elevated EDP Do not suspect ACS 3. Diabetes mellitus. 4. Coronary artery disease,status post myocardial infarction, status post m status post CABG. 5. Status post sternal wound infection (resolved). 6. Poor compliance. 7. Hypercholesterolemia. 8. Anemia. 9. Poor compliance. RECOMMENDATIONS: 1. Continue ASA daily; Imdur added. 2. Continue HD to volume optimize. 3. Pt reports normal stress test earlier this year at [facility], would obtain results.
--- NOTE | 2019-03-26 11:38 | PN ---
Progress Note (short form) - Note Progress Note: Resting in NAD. No CP or SOB. No acute events overnight. Intake & Output 03/23/19 03/24/19 03/25/19 03/26/19 23:59 23:59 23:59 23:59 Intake Total 1680 650 5669 100 Output Total 1420 1000 Balance -228 300 630 100 Weight 164 lb 12.8 oz 188 lb 186 lb 186 lb 4.8 oz Last Vital Signs Temp Pulse Resp BP Pulse Ox 97.7 F 87 18 135/68 99 03/26/19 10:00 03/26/19 10:00 03/26/19 10:00 03/26/19 10:00 03/25/19 09:00 Active Medications Albuterol/Ipratropium (Duoneb -) 1 amp NEB Q6H PRN PRN Reason: SHORTNESS OF BREATH Aspirin (Ecotrin -) 81 mg PO DAILY [facility] Last Admin: 03/26/19 10:09 Dose: 81 mg Bacitracin (Bacitracin -) 1 applic TP DAILY [facility] Last Admin: 03/26/19 10:10 Dose: 1 applic Calcium Acetate (Phoslo -) 1,334 mg PO TIDCM [facility] Last Admin: 03/26/19 08:38 Dose: 1,334 mg Diphenhydramine/Calamine/Camphor (Caladryl -) 1 applic TP BID [facility] Last Admin: 03/26/19 10:09 Dose: 1 applic Fentanyl (Sublimaze Injection -) 25 mcg IVPUSH [id number] PRN PRN Reason: PAIN-PACU ORDER X 4 DOSES ONLY Ferrous Sulfate (Feosol -) 325 mg PO TIDCM [facility] Last Admin: 03/26/19 08:38 Dose: 325 mg Heparin Sodium (Porcine) (Heparin -) 5,000 unit SQ TID [facility] Last Admin: 03/26/19 05:39 Dose: 5,000 unit Hydroxyzine Pamoate (Vistaril -) 25 mg PO Q8H PRN PRN Reason: FOR ITCHING Isosorbide Mononitrate (Imdur -) 30 mg PO DAILY [facility] Last Admin: 03/26/19 10:09 Dose: 30 mg Multivitamins/Minerals (Theragran-M) 1 each PO DAILY [facility] Last Admin: 03/26/19 10:09 Dose: 1 each Prochlorperazine Edisylate (Compazine Injection -) 5 mg IM Q4H PRN PRN Reason: NAUSEA AND/OR VOMITING Last Admin: 03/24/19 12:38 Dose: 5 mg Thiamine HCl (Vitamin B1 -) 100 mg PO DAILY [facility] Last Admin: 03/26/19 10:09 Dose: 100 mg Constitutional: Yes: NAD Eyes: Yes: WNL HENT: Yes: WNL Neck: Yes: WNL Cardiovascular: Yes: Regular Rate and Rhythm, S1, S2 Respiratory: Yes: Diminished Gastrointestinal: Yes: Normal Bowel Sounds, Soft Extremities: Yes: WNL Edema: No Labs: Laboratory Results - last 24 hr 03/23/19 03/23/19 03/25/19 06:30 12:21 14:20 WBC RBC Hgb Hct MCV MCH MCHC RDW Plt Count MPV Absolute Neuts (auto) Neutrophils % Lymphocytes % Monocytes % Eosinophils % Basophils % Nucleated RBC % Sodium Potassium Chloride Carbon Dioxide Anion Gap BUN Creatinine Est GFR (CKD-EPI)AfAm Est GFR (CKD-EPI)NonAf Random Glucose Calcium Phosphorus Magnesium Total Bilirubin AST ALT Alkaline Phosphatase Troponin I 1.77 H* Total Protein Albumin Triglycerides Cholesterol Total LDL Cholesterol HDL Cholesterol Random Vancomycin c-ANCA <1:20 Proteinase 3 (PR3) <3.5 p-ANCA <1:20 Atypical p-ANCA <1:20 Myeloperoxidase Ab <9.0 Bartonella henselae IgG Negative Bartonella henselae IgM Negative Bartonella ochoa IgG Negative Bartonella ochoa IgM Negative Hep A IgM Ab Confirm Negative Hepatitis A Ab Total Negative Hep Bs Antigen Negative Hep Bs Antibody Non reactive Hep B Core Total Ab Negative Hep B Core IgM Ab Negative Hepatitis Be Antibody Negative Hepatitis Be Antigen Negative HCV Quantitation Hcv not detected HCV RNA log copies/mL TNP 03/26/19 03/26/19 03/26/19 06:00 06:00 06:00 WBC 8.4 RBC 2.87 L Hgb 8.6 L Hct 27.1 L MCV 94.3 MCH 29.8 MCHC 31.6 L RDW 19.6 H Plt Count 128 L MPV 8.5 Absolute Neuts (auto) 5.6 Neutrophils % 67.3 Lymphocytes % 14.9 Monocytes % 13.9 H Eosinophils % 2.8 Basophils % 1.1 Nucleated RBC % 1 H Sodium 134 L Potassium 4.2 Chloride 98 Carbon Dioxide 27 Anion Gap 9 BUN 41.7 H Creatinine 4.2 H Est GFR (CKD-EPI)AfAm 12.69 Est GFR (CKD-EPI)NonAf 10.95 Random Glucose 109 H Calcium 7.9 L Phosphorus 3.9 Magnesium 1.8 Total Bilirubin 1.1 H AST 26 ALT 21 Alkaline Phosphatase 96 Troponin I Total Protein 5.5 L Albumin 3.0 L Triglycerides Cholesterol Total LDL Cholesterol HDL Cholesterol Random Vancomycin 10.9 L c-ANCA Proteinase 3 (PR3) p-ANCA Atypical p-ANCA Myeloperoxidase Ab Bartonella henselae IgG Bartonella henselae IgM Bartonella ochoa IgG Bartonella ochoa IgM Hep A IgM Ab Confirm Hepatitis A Ab Total Hep Bs Antigen Hep Bs Antibody Hep B Core Total Ab Hep B Core IgM Ab Hepatitis Be Antibody Hepatitis Be Antigen HCV Quantitation HCV RNA log copies/mL 03/26/19 06:00 WBC RBC Hgb Hct MCV MCH MCHC RDW Plt Count MPV Absolute Neuts (auto) Neutrophils % Lymphocytes % Monocytes % Eosinophils % Basophils % Nucleated RBC % Sodium Potassium Chloride Carbon Dioxide Anion Gap BUN Creatinine Est GFR (CKD-EPI)AfAm Est GFR (CKD-EPI)NonAf Random Glucose Calcium Phosphorus Magnesium Total Bilirubin AST ALT Alkaline Phosphatase Troponin I Total Protein Albumin Triglycerides 102 Cholesterol 114 Total LDL Cholesterol 69 HDL Cholesterol 38 L Random Vancomycin c-ANCA Proteinase 3 (PR3) p-ANCA Atypical p-ANCA Myeloperoxidase Ab Bartonella henselae IgG Bartonella henselae IgM Bartonella ochoa IgG Bartonella ochoa IgM Hep A IgM Ab Confirm Hepatitis A Ab Total Hep Bs Antigen Hep Bs Antibody Hep B Core Total Ab Hep B Core IgM Ab Hepatitis Be Antibody Hepatitis Be Antigen HCV Quantitation HCV RNA log copies/mL Problem List - Problems (1) Uremic pruritus Code(s): L29.9 - PRURITUS, UNSPECIFIED (2) COPD (chronic obstructive pulmonary disease) Code(s): J44.9 - CHRONIC OBSTRUCTIVE PULMONARY DISEASE, UNSPECIFIED (3) Dyspnea Code(s): R06.00 - DYSPNEA, UNSPECIFIED (4) Kcsde-uw-ipskcmb kidney injury Code(s): N17.9 - ACUTE KIDNEY FAILURE, UNSPECIFIED; N18.9 - CHRONIC KIDNEY DISEASE, UNSPECIFIED (5) CHF (congestive heart failure) Code(s): I50.9 - HEART FAILURE, UNSPECIFIED (6) S/P CABG (coronary artery bypass graft) Code(s): Z95.1 - PRESENCE OF AORTOCORONARY BYPASS GRAFT (7) Troponin I above reference range Code(s): R79.89 - OTHER SPECIFIED ABNORMAL FINDINGS OF BLOOD CHEMISTRY Assessment/Plan IMP DYSPNEA IMPROVED ACUTE ON CHRONIC CHF IMPROVED ACUTE ON CHRONIC KIDNEY FAILURE SEVERE LV SYSTOLIC DYFUNCTION DM COPD NOT IN ACUTE EXACERBATION ASHD S/P CABG + TROPONIN H/O TOBACCO USE LIKELY UREMIC PRURITIS PULMONARY HTN SEVERE MR PLAN HD PER RENAL O2 NEEDED MONITOR LYTES,RENAL FUNCTION BD TX PRN DC PLANNING Dr Santacruz
--- NOTE | 2019-03-26 12:06 | PN ---
Progress Note (short form) - Note Progress Note: Renal follow up for YVES requiring HD Seen and examined at the bedside on acute complaints no shortness of breath s/p HD yesterday with 0.5kg UF Vital Signs Temperature 97.7 F 03/26/19 10:00 Pulse Rate 87 03/26/19 10:00 Respiratory Rate 18 03/26/19 10:00 Blood Pressure 135/68 03/26/19 10:00 O2 Sat by Pulse Oximetry (%) 99 03/25/19 09:00 Intake & Output 03/23/19 03/24/19 03/25/19 03/26/19 23:59 23:59 23:59 23:59 Intake Total 8214 713 5848 100 Output Total 1420 1000 Balance -228 300 630 100 Weight 74.752 kg 85.275 kg 84.368 kg 84.504 kg NAD RRR Dec BS + edema CBC, BMP 03/26/19 06:00 03/26/19 06:00 Current Medications Albuterol/Ipratropium (Duoneb -) 1 amp NEB Q6H PRN PRN Reason: SHORTNESS OF BREATH Aspirin (Ecotrin -) 81 mg PO DAILY [facility] Last Admin: 03/26/19 10:09 Dose: 81 mg Bacitracin (Bacitracin -) 1 applic TP DAILY [facility] Last Admin: 03/26/19 10:10 Dose: 1 applic Calcium Acetate (Phoslo -) 1,334 mg PO TIDCM [facility] Last Admin: 03/26/19 08:38 Dose: 1,334 mg Diphenhydramine/Calamine/Camphor (Caladryl -) 1 applic TP BID [facility] Last Admin: 03/26/19 10:09 Dose: 1 applic Fentanyl (Sublimaze Injection -) 25 mcg IVPUSH [id number] PRN PRN Reason: PAIN-PACU ORDER X 4 DOSES ONLY Ferrous Sulfate (Feosol -) 325 mg PO TIDCM [facility] Last Admin: 03/26/19 08:38 Dose: 325 mg Heparin Sodium (Porcine) (Heparin -) 5,000 unit SQ TID [facility] Last Admin: 03/26/19 05:39 Dose: 5,000 unit Hydroxyzine Pamoate (Vistaril -) 25 mg PO Q8H PRN PRN Reason: FOR ITCHING Isosorbide Mononitrate (Imdur -) 30 mg PO DAILY [facility] Last Admin: 03/26/19 10:09 Dose: 30 mg Multivitamins/Minerals (Theragran-M) 1 each PO DAILY [facility] Last Admin: 03/26/19 10:09 Dose: 1 each Prochlorperazine Edisylate (Compazine Injection -) 5 mg IM Q4H PRN PRN Reason: NAUSEA AND/OR VOMITING Last Admin: 03/24/19 12:38 Dose: 5 mg Thiamine HCl (Vitamin B1 -) 100 mg PO DAILY [facility] Last Admin: 03/26/19 10:09 Dose: 100 mg Impression 1. CKD with YVES 2. CHF 3. DM 4. HTN 5. hyperlipidemia 6. nephrotic range proteinuria 7. CAD 8. elevated troponin Plan had dialysis yesterday no acute need for [employer]CEIVABLE [employer]OCIATE today trend BUN/cr post HD continue cardiac work up Next planned HD is thursday possible renal biopsy in near future if ASA can be held Dave Garcia DO
[2019-03-26] MEDS: PROCHLORPERAZINE INJECTION 10 MG/2 ML VIAL IM PRN (16:29)
[2019-03-26] MEDS: rOPINIRole HCL 0.25 MG TABLET PO SCH (21:00)
[2019-03-26] MEDS: ATORVASTATIN CA 40 MG TABLET (FP) PO SCH (21:00)
[2019-03-26] MEDS: ALBUTEROL SO4 2.5/IPRATROPIUM 0.5 INH SOL 3 ML VIAL.NEB. NEB PRN (21:00)
[2019-03-26] MEDS: LORATADINE 10 MG TABLET PO SCH (22:09)
[2019-03-27] MEDS: HEPARIN NA (PORCINE) 5,000 UNITS/ML 1ML VIAL SQ SCH ×3 (05:52→21:03)
[2019-03-27 06:54] LABS: BASO % 1.2 % (0-2.0); EOS % 1.9 % (0-4.5); HEMATOCRIT 26.5 % (32.4-45.2); HEMOGLOBIN 8.4 GM/dL (10.7-15.3); LYMPH % 13.7 % (8-40); MCH 30.2 pg (25.7-33.7); MCHC 31.6 g/dl (32.0-36.0); MEAN CELL VOLUME 95.4 fl (80-96); MEAN PLT VOLUME 8.5 fl (7.5-11.1); MONO % 11.7 % (3.8-10.2); NEUT % 71.5 % (42.8-82.8); PLATELET COUNT 122 K/MM3 (134-434); RBC 2.78 M/mm3 (3.60-5.2); RDW 19.7 % (11.6-15.6); WHITE BLOOD COUNT 8.6 K/mm3 (4.0-10.0)
[2019-03-27 07:24] LABS: ALBUMIN 3.2 g/dl (3.4-5.0); BILIRUBIN,TOTAL 1.1 mg/dL (0.2-1); BLOOD UREA NITROGEN 52.8 mg/dL (7-18); CALCIUM 7.7 mg/dL (8.5-10.1); CREATININE 5.1 mg/dL (0.55-1.3); PHOSPHOROUS 4.2 mg/dL (2.5-4.9); POTASSIUM 4.3 mmol/L (3.5-5.1); TOT PROT 5.7 g/dl (6.4-8.2)
--- NOTE | 2019-03-27 07:27 | PN ---
Progress Note, Physician Chief Complaint: Experience SOB last night resolved with duo neb. States puritis is better. Tearful today about though of senior living HD History of Present Illness: 58F with a PMH of DM retinopathy, DM, CAD s/p CABG (4 vessel, 2014) and CHF who presents to the ER for worsening SOB and malaise. 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 He spoke with her optical laboratory mechanic who recommended that she come to the ED for evaluation. She denies fever, chills, nausea, vomiting, CP, abd pain but admits to SOB and mild swelling in her L LE which "goes down at night". She also complains of a rash which started 2 weeks ago after being scratched by her cat and is pruritic and spreading. - Current Medication List Current Medications: Active Medications Albuterol/Ipratropium (Duoneb -) 1 amp NEB Q6H PRN PRN Reason: SHORTNESS OF BREATH Last Admin: 03/26/19 21:00 Dose: 1 amp Aspirin (Ecotrin -) 81 mg PO DAILY [facility] Last Admin: 03/26/19 10:09 Dose: 81 mg Atorvastatin Calcium (Lipitor -) 20 mg PO HS [facility] Last Admin: 03/26/19 21:00 Dose: Not Given Bacitracin (Bacitracin -) 1 applic TP DAILY [facility] Last Admin: 03/26/19 10:10 Dose: 1 applic Calcium Acetate (Phoslo -) 1,334 mg PO TIDCM [facility] Last Admin: 03/26/19 17:11 Dose: 1,334 mg Diphenhydramine/Calamine/Camphor (Caladryl -) 1 applic TP BID [facility] Last Admin: 03/26/19 21:00 Dose: 1 applic Fentanyl (Sublimaze Injection -) 25 mcg IVPUSH [id number] PRN PRN Reason: PAIN-PACU ORDER X 4 DOSES ONLY Ferrous Sulfate (Feosol -) 325 mg PO TIDCM [facility] Last Admin: 03/26/19 17:11 Dose: 325 mg Heparin Sodium (Porcine) (Heparin -) 5,000 unit SQ TID [facility] Last Admin: 03/27/19 05:52 Dose: 5,000 unit Hydroxyzine Pamoate (Vistaril -) 25 mg PO Q8H PRN PRN Reason: FOR ITCHING Isosorbide Mononitrate (Imdur -) 30 mg PO DAILY [facility] Last Admin: 03/26/19 10:09 Dose: 30 mg Loratadine (Claritin -) 10 mg PO HS [facility] Last Admin: 03/26/19 22:09 Dose: 10 mg Multivitamins/Minerals (Theragran-M) 1 each PO DAILY [facility] Last Admin: 03/26/19 10:09 Dose: 1 each Prochlorperazine Edisylate (Compazine Injection -) 5 mg IM Q4H PRN PRN Reason: NAUSEA AND/OR VOMITING Last Admin: 03/26/19 16:29 Dose: 5 mg Ropinirole HCl (Requip -) 0.25 mg PO HS [facility] Last Admin: 03/26/19 21:00 Dose: 0.25 mg Thiamine HCl (Vitamin B1 -) 100 mg PO DAILY [facility] Last Admin: 03/26/19 10:09 Dose: 100 mg - Objective Vital Signs: Vital Signs Temperature 98.0 F 03/27/19 02:00 Pulse Rate 80 03/27/19 02:00 Respiratory Rate 18 03/27/19 02:00 Blood Pressure 154/68 03/27/19 02:00 O2 Sat by Pulse Oximetry (%) 97 03/26/19 20:26 Additional Findings/Remarks: Constitutional: Yes:calm, pleasant Eyes: Yes: WNL, Conjunctiva Clear HENT: Yes: WNL, Atraumatic, Normocephalic Neck: Yes: WNL, Supple, Trachea Midline, Lymphadenopathy (not present) Cardiovascular: Yes: Regular Rate and Rhythm, Murmur (systolic mummur) Respiratory: Yes: WNL, Regular, CTA Bilaterally Gastrointestinal: Yes: WNL, Normal Bowel Sounds ...Rectal Exam: Yes: Deferred Genitourinary: Yes: liu dc'd Breast(s): Yes: WNL Musculoskeletal: Yes: WNL Extremities: Yes: WNL Edema: Yes Edema: LLE: 1+, RLE: Trace Peripheral Pulses WNL: Yes Peripheral Pulses: Left Radial: 2+, Right Radial: 2+, Left Doralis Pedis: 2+, Right Dorsalis Pedis: 2+, Left Femoral: 2+, Right Femoral: 2+ Integumentary: Yes: Rash (Erythematous papular rash with excoriation valdes and scabs, circular in shape on the trunk and extremities. Each leason measuring about 1cm or less, often appearing in rows.). Permacath noted to R chest Neurological: Yes: WNL, Alert, Oriented ...Motor Strength: WNL Psychiatric: Yes: WNL Labs: CBC, BMP 03/27/19 05:55 03/27/19 05:55 INR, PTT INR 1.39 (0.83-1.09) H 03/23/19 05:30 Problem List - Problems (1) COPD (chronic obstructive pulmonary disease) Assessment/Plan: duo nebs prn supplemental O2 as needed appreciated pulmonary consultation Code(s): J44.9 - CHRONIC OBSTRUCTIVE PULMONARY DISEASE, UNSPECIFIED (2) Prophylactic measure Assessment/Plan: FEN renal/diabetic diet monitor electrolytes no additional IVF needed at this time DVT heparin sq Dispo maintain on tele full code discharge planning-HD center being arranged for DC Code(s): Z29.9 - ENCOUNTER FOR PROPHYLACTIC MEASURES, UNSPECIFIED (3) CHF (congestive heart failure) Assessment/Plan: Strict I's and O's Daily weights-weigh up 12 kg since admission? Cardiology consultation, Dr. Alford appreciate recommendations TTE LV fx severly reduced, global hypokinesis Pt reports normal stress test earlier this year at [facility], will obtain results on Code(s): I50.9 - HEART FAILURE, UNSPECIFIED (4) Coronary artery disease Assessment/Plan: CAD s/p CABG (4 vessel, 2014) asa 81 daily-given elevated troponins can not hold asa for proposed renal bx TTE noted above Troponins trended down, EKG without ischemic changes no need to further trend Code(s): I25.10 - ATHSCL HEART DISEASE OF [place] CORONARY ARTERY W/O ANG PCTRS Qualifiers: Coronary Disease-Associated Artery/Lesion type: [place] artery [place] vs. transplanted heart: [place] heart Associated angina: without angina Qualified Code(s): I25.10 - Atherosclerotic heart disease of [place] coronary artery without angina pectoris (5) S/P CABG (coronary artery bypass graft) Assessment/Plan: Pt reports normal stress test earlier this year at [facility], will obtain results. Code(s): Z95.1 - PRESENCE OF AORTOCORONARY BYPASS GRAFT (6) YVES (acute kidney injury) Assessment/Plan: BUN 52 Cr 5.1 -Renal u/s without evidence of hydronephrosis, do not suspect post renal cause at this time HD done on thu- tolerated well. Took off .5L appreciate renal consultation avoid nephrotoxic agents plan for AV fistula as outpt Code(s): N17.9 - ACUTE KIDNEY FAILURE, UNSPECIFIED (7) Hypocalcemia Assessment/Plan: Ca gluconate 1000mg IV given in ED Calcitriol 0.25mcg PO given in ED c/w Phoslo - 2 tabs w/ meals c/w Calcium 500mg/ Vit D 200u 2 tabs daily follow CMP, mag phos daily replete lytes PRN Code(s): E83.51 - HYPOCALCEMIA (8) Hyperphosphatemia Assessment/Plan: see above Code(s): E83.39 - OTHER DISORDERS OF PHOSPHORUS METABOLISM (9) Troponin I above reference range Assessment/Plan: 0.19>2.27>2.3>2.5> 1.7 likely due to demand ischemia and YVES no chest pain no need to further trend troponin c/w isosorbide mononitrate 30 mg started-tolerating well-if experiences s/e can change to ranexa consider Lexiscan myocardial perfusion study when more stable & euvolemic fasting lipids: CHol 114, LDL 69, HDL 38. Given risk factors will start a low dose statin Code(s): R79.89 - OTHER SPECIFIED ABNORMAL FINDINGS OF BLOOD CHEMISTRY (10) Rash and nonspecific skin eruption Assessment/Plan: recent cat scratch reported, bortonella negative extreme pruritus partly due to uremia, resolving seen by dermatology- Dr Watson punch biopsy done -call office [phone] on 03/28 for results c/w calamine lotion to affected area and c/w atarax for puritus Code(s): R21 - RASH AND OTHER NONSPECIFIC SKIN ERUPTION (11) Anemia due to chronic kidney disease Assessment/Plan: hgb 8.6 hemodymanically stable will re-assess need for blood transfusion when on HD FeSO4/thiamine/MVI daily Code(s): N18.9 - CHRONIC KIDNEY DISEASE, UNSPECIFIED; D63.1 - ANEMIA IN CHRONIC KIDNEY DISEASE (12) Pyuria Assessment/Plan: UA with 3+ leuk, nitrate -, WBC 442 group b strep UTI, sensitivites pending , blood cultures negative as per ID will treat with vancomycin with HD for one week dosing to level (Vanc 10.9) Code(s): R82.81 - PYURIA (13) Restless leg syndrome Assessment/Plan: started ropinirole yesterday at low dose .25mg will increase tomorrow to 0.5 if no relief Code(s): G25.81 - RESTLESS LEGS SYNDROME Visit type - Emergency Visit Emergency Visit: Yes ED Registration Date: 03/22/19 Care time: The patient presented to the Emergency Department on the above date and was hospitalized for further evaluation of their emergent condition. - New Patient This patient is new to me today: No - Critical Care Critical Care patient: No - Discharge Referral Referred to [facility] No
[2019-03-27] MEDS: CALCIUM ACETATE 667 MG CAPSULE (FP) PO SCH ×3 (08:22→17:09)
[2019-03-27] MEDS: FERROUS SO4 325 MG TABLET (FP) PO SCH ×3 (08:22→17:08)
[2019-03-27] MEDS ORDERED: PT OWN MED DRAWER 7, Y5N ONE ×2 (09:16→20:58)
[2019-03-27] MEDS: THIAMINE HCL 100 MG TABLET (FP) PO SCH (09:27)
[2019-03-27] MEDS: PRAMOXINE HCL/CALAMINE 177 ML LOTION TP SCH ×2 (09:27→21:06)
[2019-03-27] MEDS: ASPIRIN COATED 81 MG TABLET.EC PO SCH (09:27)
[2019-03-27] MEDS: MULTIVITAMINS THER W-MINERALS COMBO TABLET (FP) PO SCH (09:27)
[2019-03-27] MEDS: ISOSORBIDE MONONITRATE 30 MG TAB.SR.24H (FP) PO SCH (09:27)
[2019-03-27] MEDS: BACITRACIN 15 GM TUBE TOPICAL OINTMENT TP SCH (09:28)
[2019-03-27] MEDS ORDERED: BISACODYL 5 MG TABLET.DR (FP) PO ONE (09:55)
--- NOTE | 2019-03-27 10:21 | PN ---
Progress Note (short form) - Note Progress Note: cardiology, covering for Dr Fernández s: no cp sob palps dizzy TELE: SR Current Medications Generic Name Dose Route Start Last Admin Trade Name Freq PRN Reason Stop Dose Admin Albuterol/Ipratropium 1 amp 03/23/19 17:50 03/26/19 21:00 Duoneb - NEB 1 amp Q6H PRN Administration SHORTNESS OF BREATH Aspirin 81 mg 03/25/19 10:00 03/27/19 09:27 Ecotrin - PO 81 mg DAILY [facility] Administration Atorvastatin Calcium 20 mg 03/26/19 22:00 03/26/19 21:00 Lipitor - PO Not Given HS [facility] Bacitracin 1 applic 03/24/19 10:00 03/27/19 09:28 Bacitracin - TP 1 applic DAILY [facility] Administration Calcium Acetate 1,334 mg 03/23/19 17:30 03/27/19 08:22 Phoslo - PO 1,334 mg TIDCM [facility] Administration Diphenhydramine/Calamine/Camphor 1 applic 03/23/19 22:00 03/27/19 09:27 Caladryl - TP 1 applic BID [facility] Administration Docusate Sodium 100 mg 03/27/19 10:00 Colace - PO TID [facility] Fentanyl 25 mcg 03/23/19 15:56 Sublimaze Injection - IVPUSH [id number] PRN PAIN-PACU ORDER X 4 DOSES ONLY Ferrous Sulfate 325 mg 03/24/19 08:45 03/27/19 08:22 Feosol - PO 325 mg TIDCM [facility] Administration Heparin Sodium (Porcine) 5,000 unit 03/23/19 22:00 03/27/19 05:52 Heparin - SQ 5,000 unit TID [facility] Administration Hydroxyzine Pamoate 25 mg 03/23/19 15:56 Vistaril - PO Q8H PRN FOR ITCHING Isosorbide Mononitrate 30 mg 03/25/19 10:00 03/27/19 09:27 Imdur - PO 30 mg DAILY [facility] Administration Loratadine 10 mg 03/26/19 22:00 03/26/19 22:09 Claritin - PO 10 mg HS [facility] Administration Multivitamins/Minerals 1 each 03/24/19 10:00 03/27/19 09:27 Theragran-M PO 1 each DAILY [facility] Administration Prochlorperazine Edisylate 5 mg 03/23/19 15:56 03/26/19 16:29 Compazine Injection - IM 5 mg Q4H PRN Administration NAUSEA AND/OR VOMITING Ropinirole HCl 0.25 mg 03/26/19 22:00 03/26/19 21:00 Requip - PO 0.25 mg HS [facility] Administration Thiamine HCl 100 mg 03/24/19 10:00 03/27/19 09:27 Vitamin B1 - PO 100 mg DAILY [facility] Administration Vital Signs Period Temp Pulse Resp BP Sys/Horowitz Pulse Ox Last 24 Hr 97.2 F-98.0 F 80-133 16-20 128-163/55-77 97 Constitutional: Yes: Calm Cardiovascular: Yes: Regular Rate and Rhythm Respiratory: Yes: CTA Bilaterally Gastrointestinal: Yes: Soft (NT) Edema: No Neurological: Yes: Alert, Oriented no jaundice diaphoresis Labs: CBC, BMP 03/27/19 05:55 03/27/19 05:55 - ....Imaging EKG: Image Reviewed Assessment/Plan IMRESSIONS: 1. Congestive heart failure: severe LV dysfx (not new, since at least 2017) 2. Elevated troponin levels, etiology: a). Related to acute renal failure. b): Congestive heart failure. c). Ischemic heart disease. d.) Severe MR/TR and severe PHTN likely due to left sided failure, elevated EDP Do not suspect ACS 3. Diabetes mellitus. 4. Coronary artery disease,status post myocardial infarction, status post m status post CABG. 5. Status post sternal wound infection (resolved). 6. Poor compliance. 7. Hypercholesterolemia. 8. Anemia. 9. Poor compliance. RECOMMENDATIONS: 1. Continue ASA daily; Imdur added. 2. Continue HD to volume optimize. 3. Pt reports normal stress test earlier this year at [facility], would obtain results.
[2019-03-27] MEDS: DOCUSATE SODIUM 100 MG CAPSULE (FP) PO SCH ×3 (10:31→21:03)
--- NOTE | 2019-03-27 10:51 | PN ---
Progress Note (short form) - Note Progress Note: Resting in NAD. No CP or SOB. No acute events overnight. Intake & Output 03/24/19 03/25/19 03/26/19 03/27/19 23:59 23:59 23:59 23:59 Intake Total 300 1630 1150 Output Total 1000 Balance 860 901 8503 Weight 188 lb 186 lb 186 lb 4.8 oz 187 lb 6.4 oz Last Vital Signs Temp Pulse Resp BP Pulse Ox 98.2 F 83 18 150/82 97 03/27/19 09:20 03/27/19 09:20 03/27/19 09:20 03/27/19 09:20 03/26/19 20:26 Active Medications Albuterol/Ipratropium (Duoneb -) 1 amp NEB Q6H PRN PRN Reason: SHORTNESS OF BREATH Last Admin: 03/26/19 21:00 Dose: 1 amp Aspirin (Ecotrin -) 81 mg PO DAILY [facility] Last Admin: 03/27/19 09:27 Dose: 81 mg Atorvastatin Calcium (Lipitor -) 20 mg PO HS [facility] Last Admin: 03/26/19 21:00 Dose: Not Given Bacitracin (Bacitracin -) 1 applic TP DAILY [facility] Last Admin: 03/27/19 09:28 Dose: 1 applic Calcium Acetate (Phoslo -) 1,334 mg PO TIDCM [facility] Last Admin: 03/27/19 08:22 Dose: 1,334 mg Diphenhydramine/Calamine/Camphor (Caladryl -) 1 applic TP BID [facility] Last Admin: 03/27/19 09:27 Dose: 1 applic Docusate Sodium (Colace -) 100 mg PO TID [facility] Last Admin: 03/27/19 10:31 Dose: 100 mg Fentanyl (Sublimaze Injection -) 25 mcg IVPUSH [id number] PRN PRN Reason: PAIN-PACU ORDER X 4 DOSES ONLY Ferrous Sulfate (Feosol -) 325 mg PO TIDCM [facility] Last Admin: 03/27/19 08:22 Dose: 325 mg Heparin Sodium (Porcine) (Heparin -) 5,000 unit SQ TID [facility] Last Admin: 03/27/19 05:52 Dose: 5,000 unit Hydroxyzine Pamoate (Vistaril -) 25 mg PO Q8H PRN PRN Reason: FOR ITCHING Isosorbide Mononitrate (Imdur -) 30 mg PO DAILY [facility] Last Admin: 03/27/19 09:27 Dose: 30 mg Loratadine (Claritin -) 10 mg PO HS [facility] Last Admin: 03/26/19 22:09 Dose: 10 mg Multivitamins/Minerals (Theragran-M) 1 each PO DAILY [facility] Last Admin: 03/27/19 09:27 Dose: 1 each Prochlorperazine Edisylate (Compazine Injection -) 5 mg IM Q4H PRN PRN Reason: NAUSEA AND/OR VOMITING Last Admin: 03/26/19 16:29 Dose: 5 mg Ropinirole HCl (Requip -) 0.25 mg PO HS [facility] Last Admin: 03/26/19 21:00 Dose: 0.25 mg Thiamine HCl (Vitamin B1 -) 100 mg PO DAILY [facility] Last Admin: 03/27/19 09:27 Dose: 100 mg Constitutional: Yes: NAD Eyes: Yes: WNL HENT: Yes: WNL Neck: Yes: WNL Cardiovascular: Yes: Regular Rate and Rhythm, S1, S2 Respiratory: Yes: Diminished Gastrointestinal: Yes: Normal Bowel Sounds, Soft Extremities: Yes: WNL Edema: No Labs: Laboratory Results - last 24 hr 03/27/19 03/27/19 03/27/19 05:55 05:55 05:55 WBC 8.6 RBC 2.78 L Hgb 8.4 L Hct 26.5 L MCV 95.4 MCH 30.2 MCHC 31.6 L RDW 19.7 H Plt Count 122 L MPV 8.5 Absolute Neuts (auto) 6.1 Neutrophils % 71.5 Lymphocytes % 13.7 Monocytes % 11.7 H Eosinophils % 1.9 Basophils % 1.2 Nucleated RBC % 0 Sodium 130 L Potassium 4.3 Chloride 94 L Carbon Dioxide 23 Anion Gap 13 BUN 52.8 H Creatinine 5.1 H Est GFR (CKD-EPI)AfAm 10.03 Est GFR (CKD-EPI)NonAf 8.66 Random Glucose 152 H Calcium 7.7 L Phosphorus 4.2 Magnesium 2.0 Total Bilirubin 1.1 H AST 31 ALT 23 Alkaline Phosphatase 104 Total Protein 5.7 L Albumin 3.2 L Random Vancomycin 25.4 Problem List - Problems (1) Uremic pruritus Code(s): L29.9 - PRURITUS, UNSPECIFIED (2) COPD (chronic obstructive pulmonary disease) Code(s): J44.9 - CHRONIC OBSTRUCTIVE PULMONARY DISEASE, UNSPECIFIED (3) Dyspnea Code(s): R06.00 - DYSPNEA, UNSPECIFIED (4) [id number] kidney injury Code(s): N17.9 - ACUTE KIDNEY FAILURE, UNSPECIFIED; N18.9 - CHRONIC KIDNEY DISEASE, UNSPECIFIED (5) CHF (congestive heart failure) Code(s): I50.9 - HEART FAILURE, UNSPECIFIED (6) S/P CABG (coronary artery bypass graft) Code(s): Z95.1 - PRESENCE OF AORTOCORONARY BYPASS GRAFT (7) Troponin I above reference range Code(s): R79.89 - OTHER SPECIFIED ABNORMAL FINDINGS OF BLOOD CHEMISTRY Assessment/Plan IMP DYSPNEA IMPROVED ACUTE ON CHRONIC CHF IMPROVED ACUTE ON CHRONIC KIDNEY FAILURE SEVERE LV SYSTOLIC DYFUNCTION DM COPD NOT IN ACUTE EXACERBATION ASHD S/P CABG + TROPONIN H/O TOBACCO USE LIKELY UREMIC PRURITIS PULMONARY HTN SEVERE MR PLAN HD PER RENAL O2 NEEDED MONITOR LYTES,RENAL FUNCTION BD TX PRN DC PLANNING Dr Santacruz
[2019-03-27] MEDS ORDERED: SODIUM CHLORIDE 250 ML IV PRN (10:54)
[2019-03-27] MEDS: ALBUTEROL SO4 2.5/IPRATROPIUM 0.5 INH SOL 3 ML VIAL.NEB. NEB PRN (11:50)
[2019-03-27] MEDS: POLYETHYLENE GLYCOL 3350 119 GM BTL PO SCH (14:25)
[2019-03-27] MEDS: LORATADINE 10 MG TABLET PO SCH (21:02)
[2019-03-27] MEDS: rOPINIRole HCL 0.25 MG TABLET PO SCH (21:03)
[2019-03-27] MEDS: ALPRAZolam 0.25 MG TABLET PO PRN (21:03)
[2019-03-27] MEDS: ATORVASTATIN CA 40 MG TABLET (FP) PO SCH (21:03)
[2019-03-27] MEDS: MELATONIN 1 MG TABLET PO SCH (22:29)
[2019-03-28] MEDS: ALBUTEROL SO4 2.5/IPRATROPIUM 0.5 INH SOL 3 ML VIAL.NEB. NEB PRN ×3 (02:36→20:36)
[2019-03-28] MEDS ORDERED: PT OWN MED DRAWER 7, Y5N ONE ×3 (06:23→22:43)
[2019-03-28] MEDS: DOCUSATE SODIUM 100 MG CAPSULE (FP) PO SCH ×3 (06:24→22:31)
[2019-03-28] MEDS: HEPARIN NA (PORCINE) 5,000 UNITS/ML 1ML VIAL SQ SCH ×3 (06:24→22:30)
--- NOTE | 2019-03-28 07:19 | PN ---
Progress Note, Physician Chief Complaint: Seen during dialysis. States her legs were less restless last night. History of Present Illness: 58F with a PMH of DM retinopathy, DM, CAD s/p CABG (2014) and CHF who presents to the ER for worsening SOB and malaise. 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 He spoke with her transit man who recommended that she come to the ED for evaluation. She denies fever, chills, nausea, vomiting, CP, abd pain but admits to SOB and mild swelling in her L LE which "goes down at night". She also complains of a rash which started 2 weeks ago after being scratched by her cat and is pruritic and spreading. - Current Medication List Current Medications: Active Medications Albuterol/Ipratropium (Duoneb -) 1 amp NEB Q6H PRN PRN Reason: SHORTNESS OF BREATH Last Admin: 03/28/19 02:36 Dose: 1 amp Alprazolam (Xanax -) 0.25 mg PO DAILY@2200 PRN PRN Reason: ANXIETY Last Admin: 03/27/19 21:03 Dose: 0.25 mg Aspirin (Ecotrin -) 81 mg PO DAILY [facility] Last Admin: 03/27/19 09:27 Dose: 81 mg Atorvastatin Calcium (Lipitor -) 20 mg PO HS [facility] Last Admin: 03/27/19 21:03 Dose: Not Given Bacitracin (Bacitracin -) 1 applic TP DAILY [facility] Last Admin: 03/27/19 09:28 Dose: 1 applic Calcium Acetate (Phoslo -) 1,334 mg PO TIDCM [facility] Last Admin: 03/27/19 17:09 Dose: 1,334 mg Diphenhydramine/Calamine/Camphor (Caladryl -) 1 applic TP BID [facility] Last Admin: 03/27/19 21:06 Dose: 1 applic Docusate Sodium (Colace -) 100 mg PO TID [facility] Last Admin: 03/28/19 06:24 Dose: 100 mg Fentanyl (Sublimaze Injection -) 25 mcg IVPUSH [id number] PRN PRN Reason: PAIN-PACU ORDER X 4 DOSES ONLY Ferrous Sulfate (Feosol -) 325 mg PO TIDCM [facility] Last Admin: 03/27/19 17:08 Dose: 325 mg Heparin Sodium (Porcine) (Heparin -) 5,000 unit SQ TID [facility] Last Admin: 03/28/19 06:24 Dose: Not Given Hydroxyzine Pamoate (Vistaril -) 25 mg PO Q8H PRN PRN Reason: FOR ITCHING Isosorbide Mononitrate (Imdur -) 30 mg PO DAILY [facility] Last Admin: 03/27/19 09:27 Dose: 30 mg Loratadine (Claritin -) 10 mg PO HS [facility] Last Admin: 03/27/19 21:02 Dose: 10 mg Melatonin (Melatonin) 3 mg PO HS [facility] Last Admin: 03/27/19 22:29 Dose: Not Given Multivitamins/Minerals (Theragran-M) 1 each PO DAILY [facility] Last Admin: 03/27/19 09:27 Dose: 1 each Polyethylene Glycol (Miralax (For Daily Use) -) 17 gm PO DAILY [facility] Last Admin: 03/27/19 14:25 Dose: 17 gm Prochlorperazine Edisylate (Compazine Injection -) 5 mg IM Q4H PRN PRN Reason: NAUSEA AND/OR VOMITING Last Admin: 03/26/19 16:29 Dose: 5 mg Ropinirole HCl (Requip -) 0.25 mg PO HS [facility] Last Admin: 03/27/19 21:03 Dose: 0.25 mg Thiamine HCl (Vitamin B1 -) 100 mg PO DAILY [facility] Last Admin: 03/27/19 09:27 Dose: 100 mg - Objective Vital Signs: Vital Signs Temperature 97.8 F 03/28/19 05:00 Pulse Rate 108 H 03/28/19 05:00 Respiratory Rate 20 03/28/19 05:00 Blood Pressure 128/61 03/28/19 05:00 O2 Sat by Pulse Oximetry (%) 93 L 03/27/19 20:47 Additional Findings/Remarks: Constitutional: Yes:calm, pleasant Eyes: Yes: WNL, Conjunctiva Clear HENT: Yes: WNL, Atraumatic, Normocephalic Neck: Yes: WNL, Supple, Trachea Midline, Lymphadenopathy (not present) Cardiovascular: Yes: Regular Rate and Rhythm, Murmur (systolic mummur) Respiratory: Yes: WNL, Regular, CTA Bilaterally Gastrointestinal: Yes: WNL, Normal Bowel Sounds ...Rectal Exam: Yes: Deferred Genitourinary: Yes: makes some urine Breast(s): Yes: WNL Musculoskeletal: Yes: WNL Extremities: Yes: WNL Edema: Yes Edema: LLE: 1+, RLE: Trace Peripheral Pulses WNL: Yes Peripheral Pulses: Left Radial: 2+, Right Radial: 2+, Left Doralis Pedis: 2+, Right Dorsalis Pedis: 2+, Left Femoral: 2+, Right Femoral: 2+ Integumentary: Yes: Rash (Erythematous papular rash with excoriation valdes and scabs, circular in shape on the trunk and extremities. Each leason measuring about 1cm or less, often appearing in rows.). Permacath noted to R chest Neurological: Yes: WNL, Alert, Oriented ...Motor Strength: WNL Psychiatric: Yes: WNL Labs: CBC, BMP 03/27/19 05:55 03/27/19 05:55 INR, PTT INR 1.39 (0.83-1.09) H 03/23/19 05:30 Problem List - Problems (1) COPD (chronic obstructive pulmonary disease) Assessment/Plan: duo nebs prn supplemental O2 as needed appreciated pulmonary consultation Code(s): J44.9 - CHRONIC OBSTRUCTIVE PULMONARY DISEASE, UNSPECIFIED (2) Prophylactic measure Assessment/Plan: FEN renal/diabetic diet monitor electrolytes no additional IVF needed at this time DVT heparin sq Dispo maintain on tele full code discharge planning-HD center being arranged for DC Code(s): Z29.9 - ENCOUNTER FOR PROPHYLACTIC MEASURES, UNSPECIFIED (3) CHF (congestive heart failure) Assessment/Plan: Strict I's and O's Daily weights-weigh up 12 kg since admission-getting HD today Cardiology consultation, Dr. Alford appreciate recommendations TTE LV fx severly reduced, global hypokinesis Pt reports normal stress test earlier this year at [facility], will obtain results on (cardiac lab closed today-([phone]). Code(s): I50.9 - HEART FAILURE, UNSPECIFIED (4) Coronary artery disease Assessment/Plan: CAD s/p CABG (4 vessel, 2014) asa 81 daily-given elevated troponins can not hold asa for proposed renal bx TTE noted above Troponins trended down, EKG without ischemic changes no need to further trend Code(s): I25.10 - ATHSCL HEART DISEASE OF [place] CORONARY ARTERY W/O ANG PCTRS Qualifiers: Coronary Disease-Associated Artery/Lesion type: [place] artery [place] vs. transplanted heart: [place] heart Associated angina: without angina Qualified Code(s): I25.10 - Atherosclerotic heart disease of [place] coronary artery without angina pectoris (5) S/P CABG (coronary artery bypass graft) Assessment/Plan: Pt reports normal stress test earlier this year at [facility], will obtain results. Code(s): Z95.1 - PRESENCE OF AORTOCORONARY BYPASS GRAFT (6) YVES (acute kidney injury) Assessment/Plan: BUN 61 Cr 5.4 -Renal u/s without evidence of hydronephrosis, do not suspect post renal cause at this time HD in progress appreciate renal consultation avoid nephrotoxic agents plan for AV fistula as outpt Code(s): N17.9 - ACUTE KIDNEY FAILURE, UNSPECIFIED (7) Hypocalcemia Assessment/Plan: Ca gluconate 1000mg IV given in ED Calcitriol 0.25mcg PO given in ED c/w Phoslo - 2 tabs w/ meals c/w Calcium 500mg/ Vit D 200u 2 tabs daily follow CMP, mag phos daily replete lytes PRN Code(s): E83.51 - HYPOCALCEMIA (8) Hyperphosphatemia Assessment/Plan: see above Code(s): E83.39 - OTHER DISORDERS OF PHOSPHORUS METABOLISM (9) Troponin I above reference range Assessment/Plan: 0.19>2.27>2.3>2.5> 1.7 likely due to demand ischemia and YVES no chest pain no need to further trend troponin c/w isosorbide mononitrate 30 mg started-tolerating well-if experiences s/e can change to ranexa consider Lexiscan myocardial perfusion study when more stable & euvolemic fasting lipids: CHol 114, LDL 69, HDL 38. c/w statin Code(s): R79.89 - OTHER SPECIFIED ABNORMAL FINDINGS OF BLOOD CHEMISTRY (10) Rash and nonspecific skin eruption Assessment/Plan: recent cat scratch reported, bortonella negative extreme pruritus partly due to uremia, resolving seen by dermatology- Dr Watson punch biopsy done -will call office today [phone] on 03/28 for results c/w calamine lotion to affected area and c/w atarax for puritus Code(s): R21 - RASH AND OTHER NONSPECIFIC SKIN ERUPTION (11) Anemia due to chronic kidney disease Assessment/Plan: hgb 9.1 hemodymanically stable will re-assess need for blood transfusion when on HD FeSO4/thiamine/MVI daily Code(s): N18.9 - CHRONIC KIDNEY DISEASE, UNSPECIFIED; D63.1 - ANEMIA IN CHRONIC KIDNEY DISEASE (12) Pyuria Assessment/Plan: UA with 3+ leuk, nitrate -, WBC 442 group b strep UTI, sensitivites pending , blood cultures negative as per ID will treat with vancomycin with HD for one week dosing to level (Vanc 23 today prior to HD) Code(s): R82.81 - PYURIA (13) Restless leg syndrome Assessment/Plan: started ropinirole at low dose .25mg will increase today to 0.5mg -minimal relief continue .5mg x 5 days and can increase by .5mg weekly with max of 3mg Code(s): G25.81 - RESTLESS LEGS SYNDROME (14) Situational anxiety Assessment/Plan: pt with anxiety r/t illness xanax .25mg prn BID take taken in past and tolerated well Code(s): F41.8 - OTHER SPECIFIED ANXIETY DISORDERS Visit type - Emergency Visit Emergency Visit: Yes ED Registration Date: 03/22/19 Care time: The patient presented to the Emergency Department on the above date and was hospitalized for further evaluation of their emergent condition. - New Patient This patient is new to me today: No - Critical Care Critical Care patient: No - Discharge Referral Referred to [facility] Med P.C.: No
[2019-03-28] MEDS ORDERED: SODIUM CHLORIDE 250 ML IV PRN (07:46)
[2019-03-28] MEDS ORDERED: ACETAMINOPHEN 325 MG TABLET (FP) PO PRN (08:22)
[2019-03-28 08:31] LABS: BASO % 0.8 % (0-2.0); EOS % 1.8 % (0-4.5); HEMATOCRIT 25.6 % (32.4-45.2); HEMOGLOBIN 8.2 GM/dL (10.7-15.3); LYMPH % 14.6 % (8-40); MCH 30.2 pg (25.7-33.7); MCHC 31.9 g/dl (32.0-36.0); MEAN CELL VOLUME 94.6 fl (80-96); MEAN PLT VOLUME 8.9 fl (7.5-11.1); NEUT % 72.8 % (42.8-82.8); PLATELET COUNT 123 K/MM3 (134-434); RDW 20.1 % (11.6-15.6); WHITE BLOOD COUNT 9.1 K/mm3 (4.0-10.0)
[2019-03-28 08:53] LABS: ALBUMIN 3.2 g/dl (3.4-5.0); BILIRUBIN,TOTAL 1.2 mg/dL (0.2-1); BLOOD UREA NITROGEN 61.4 mg/dL (7-18); CREATININE 5.4 mg/dL (0.55-1.3); MAGNESIUM 2.1 mg/dL (1.8-2.4); PHOSPHOROUS 5.2 mg/dL (2.5-4.9); POTASSIUM 4.2 mmol/L (3.5-5.1); TOT PROT 5.5 g/dl (6.4-8.2)
[2019-03-28] MEDS: CALCIUM ACETATE 667 MG CAPSULE (FP) PO SCH ×3 (09:22→17:26)
--- NOTE | 2019-03-28 09:44 | PN ---
Progress Note, Physician Chief Complaint: NSTEMI History of Present Illness: mild orthopnea when lays all the way flat. o/w no sob. no cp here or at home. no palpitations, syncope. not much feet swelling noted states she's seen dr abbott since her cabg 4 yrs ago, known weak heart since then. he referred to [facility] for MPI in 09/03 which she was told was fine. remote ex cigs - Current Medication List Current Medications: Active Medications Acetaminophen (Tylenol -) 650 mg PO Q6H PRN PRN Reason: Fever Or Pain Albuterol/Ipratropium (Duoneb -) 1 amp NEB Q6H PRN PRN Reason: SHORTNESS OF BREATH Last Admin: 03/28/19 02:36 Dose: 1 amp Alprazolam (Xanax -) 0.25 mg PO DAILY@2200 PRN PRN Reason: ANXIETY Last Admin: 03/27/19 21:03 Dose: 0.25 mg Aspirin (Ecotrin -) 81 mg PO DAILY [facility] Last Admin: 03/27/19 09:27 Dose: 81 mg Atorvastatin Calcium (Lipitor -) 20 mg PO HS [facility] Last Admin: 03/27/19 21:03 Dose: Not Given Bacitracin (Bacitracin -) 1 applic TP DAILY [facility] Last Admin: 03/27/19 09:28 Dose: 1 applic Calcium Acetate (Phoslo -) 1,334 mg PO TIDCM [facility] Last Admin: 03/28/19 09:22 Dose: 1,334 mg Diphenhydramine/Calamine/Camphor (Caladryl -) 1 applic TP BID [facility] Last Admin: 03/27/19 21:06 Dose: 1 applic Docusate Sodium (Colace -) 100 mg PO TID [facility] Last Admin: 03/28/19 06:24 Dose: 100 mg Fentanyl (Sublimaze Injection -) 25 mcg IVPUSH [id number] PRN PRN Reason: PAIN-PACU ORDER X 4 DOSES ONLY Ferrous Sulfate (Feosol -) 325 mg PO TIDCM [facility] Last Admin: 03/27/19 17:08 Dose: 325 mg Heparin Sodium (Porcine) (Heparin -) 5,000 unit SQ TID [facility] Last Admin: 03/28/19 06:24 Dose: Not Given Hydroxyzine Pamoate (Vistaril -) 25 mg PO Q8H PRN PRN Reason: FOR ITCHING Sodium Chloride (Normal Saline -) 250 mls @ 3,000 mls/hr IV PRN PRN PRN Reason: Hypotension during Dialysis Stop: 03/29/19 07:46 Isosorbide Mononitrate (Imdur -) 30 mg PO DAILY [facility] Last Admin: 03/27/19 09:27 Dose: 30 mg Loratadine (Claritin -) 10 mg PO HS [facility] Last Admin: 03/27/19 21:02 Dose: 10 mg Melatonin (Melatonin) 3 mg PO HS [facility] Last Admin: 03/27/19 22:29 Dose: Not Given Multivitamins/Minerals (Theragran-M) 1 each PO DAILY [facility] Last Admin: 03/27/19 09:27 Dose: 1 each Polyethylene Glycol (Miralax (For Daily Use) -) 17 gm PO DAILY [facility] Last Admin: 03/27/19 14:25 Dose: 17 gm Prochlorperazine Edisylate (Compazine Injection -) 5 mg IM Q4H PRN PRN Reason: NAUSEA AND/OR VOMITING Last Admin: 03/26/19 16:29 Dose: 5 mg Ropinirole HCl (Requip -) 0.25 mg PO HS [facility] Last Admin: 03/27/19 21:03 Dose: 0.25 mg Thiamine HCl (Vitamin B1 -) 100 mg PO DAILY [facility] Last Admin: 03/27/19 09:27 Dose: 100 mg - Objective Vital Signs: Vital Signs Temperature 98.1 F 03/28/19 06:55 Pulse Rate 85 03/28/19 09:30 Respiratory Rate 18 03/28/19 09:30 Blood Pressure 101/45 L 03/28/19 09:30 O2 Sat by Pulse Oximetry (%) 93 L 03/27/19 20:47 Constitutional: Yes: No Distress, Calm Eyes: No: Sclera Icterus HENT: No: Nasal Congestion Cardiovascular: Yes: Regular Rate and Rhythm, JVD (>12 cm), S1, S2, Other (PMI non diplaced). No: Gallop, Murmur Respiratory: Yes: CTA Bilaterally. No: Accessory Muscle Use, Rales, Wheezes Gastrointestinal: Yes: Normal Bowel Sounds, Soft. No: Tenderness Musculoskeletal: Yes: Other (No kyphosis) Extremities: No: Cold, Cyanosis Edema: Yes (1+ ankles) Integumentary: No: Jaundice Neurological: Yes: Alert, Oriented (x3) Psychiatric: No: Agitated Labs: CBC, BMP 03/28/19 07:00 03/28/19 07:00 INR, PTT INR 1.39 (0.83-1.09) H 03/23/19 05:30 Assessment/Plan echo 04/05: severely reduced LVSF, global (no EF given). RV tds. mild-mod AI. mod-severe MR. severe TR. RVSP >60. tele: NSR IMRESSIONS: 1. acute syst chf, longstanding isch CMP 2. NSTEMI, suspected Type II: a). Related to acute renal failure? b): Congestive heart failure? c) Severe MR/TR and severe PHTN likely due to left sided failure, elevated EDP Do not suspect ACS 3. Diabetes mellitus. 4. Coronary artery disease,status post myocardial infarction, status post m status post CABG. 5. Status post sternal wound infection (resolved). 6. Poor compliance. 7. Hypercholesterolemia. 8. Anemia: chronic, stable 9. Poor compliance. 10. YVES with uremic sx's--started on HD here RECOMMENDATIONS: 1. Continue ASA daily; Imdur added. 2. Continue HD to volume optimize, management of hyponatremia per renal. 3. neck veins up ++, with orthopnea--will give lasix IV today (d/w'd dr akhtar ) 4. per pt, had unremarkable MPI in 09/03. dr abbott returns tomorrow--will defer to him ? of cath once volume status optimized and renal issues are worked out.
[2019-03-28] MEDS: MULTIVITAMINS THER W-MINERALS COMBO TABLET (FP) PO SCH (10:40)
[2019-03-28] MEDS: FERROUS SO4 325 MG TABLET (FP) PO SCH ×3 (10:40→17:26)
[2019-03-28] MEDS: ISOSORBIDE MONONITRATE 30 MG TAB.SR.24H (FP) PO SCH (10:40)
[2019-03-28] MEDS: ASPIRIN COATED 81 MG TABLET.EC PO SCH (10:41)
[2019-03-28] MEDS: THIAMINE HCL 100 MG TABLET (FP) PO SCH (10:41)
[2019-03-28] MEDS: BACITRACIN 15 GM TUBE TOPICAL OINTMENT TP SCH (10:41)
[2019-03-28] MEDS: PRAMOXINE HCL/CALAMINE 177 ML LOTION TP SCH ×2 (10:42→22:31)
[2019-03-28] MEDS: POLYETHYLENE GLYCOL 3350 119 GM BTL PO SCH (10:42)
--- NOTE | 2019-03-28 11:21 | PN ---
Progress Note (short form) - Note Progress Note: Resting in NAD on RA. Some dry cough. No CP or SOB. No acute events overnight. Intake & Output 03/25/19 03/26/19 03/27/19 03/28/19 23:59 23:59 23:59 23:59 Intake Total 1630 1150 700 500 Output Total 1000 1500 Balance 630 1150 700 -1000 Weight 186 lb 186 lb 4.8 oz 187 lb 6.4 oz 176 lb Last Vital Signs Temp Pulse Resp BP Pulse Ox 98.1 F 92 H 18 117/80 93 L 03/28/19 06:55 03/28/19 10:20 03/28/19 10:20 03/28/19 10:20 03/27/19 20:47 Active Medications Acetaminophen (Tylenol -) 650 mg PO Q6H PRN PRN Reason: Fever Or Pain Albuterol/Ipratropium (Duoneb -) 1 amp NEB Q6H PRN PRN Reason: SHORTNESS OF BREATH Last Admin: 03/28/19 02:36 Dose: 1 amp Alprazolam (Xanax -) 0.25 mg PO DAILY@2200 PRN PRN Reason: ANXIETY Last Admin: 03/27/19 21:03 Dose: 0.25 mg Aspirin (Ecotrin -) 81 mg PO DAILY [facility] Last Admin: 03/28/19 10:41 Dose: 81 mg Atorvastatin Calcium (Lipitor -) 20 mg PO HS [facility] Last Admin: 03/27/19 21:03 Dose: Not Given Bacitracin (Bacitracin -) 1 applic TP DAILY [facility] Last Admin: 03/28/19 10:41 Dose: 1 applic Calcium Acetate (Phoslo -) 1,334 mg PO TIDCM [facility] Last Admin: 03/28/19 09:22 Dose: 1,334 mg Diphenhydramine/Calamine/Camphor (Caladryl -) 1 applic TP BID [facility] Last Admin: 03/28/19 10:42 Dose: 1 applic Docusate Sodium (Colace -) 100 mg PO TID [facility] Last Admin: 03/28/19 06:24 Dose: 100 mg Fentanyl (Sublimaze Injection -) 25 mcg IVPUSH [id number] PRN PRN Reason: PAIN-PACU ORDER X 4 DOSES ONLY Ferrous Sulfate (Feosol -) 325 mg PO TIDCM [facility] Last Admin: 03/28/19 10:40 Dose: 325 mg Heparin Sodium (Porcine) (Heparin -) 5,000 unit SQ TID [facility] Last Admin: 03/28/19 06:24 Dose: Not Given Hydroxyzine Pamoate (Vistaril -) 25 mg PO Q8H PRN PRN Reason: FOR ITCHING Sodium Chloride (Normal Saline -) 250 mls @ 3,000 mls/hr IV PRN PRN PRN Reason: Hypotension during Dialysis Stop: 03/29/19 07:46 Isosorbide Mononitrate (Imdur -) 30 mg PO DAILY [facility] Last Admin: 03/28/19 10:40 Dose: 30 mg Loratadine (Claritin -) 10 mg PO HS [facility] Last Admin: 03/27/19 21:02 Dose: 10 mg Melatonin (Melatonin) 3 mg PO HS [facility] Last Admin: 03/27/19 22:29 Dose: Not Given Multivitamins/Minerals (Theragran-M) 1 each PO DAILY [facility] Last Admin: 03/28/19 10:40 Dose: 1 each Polyethylene Glycol (Miralax (For Daily Use) -) 17 gm PO DAILY [facility] Last Admin: 03/28/19 10:42 Dose: 17 gm Prochlorperazine Edisylate (Compazine Injection -) 5 mg IM Q4H PRN PRN Reason: NAUSEA AND/OR VOMITING Last Admin: 03/26/19 16:29 Dose: 5 mg Ropinirole HCl (Requip -) 0.25 mg PO HS [facility] Last Admin: 03/27/19 21:03 Dose: 0.25 mg Thiamine HCl (Vitamin B1 -) 100 mg PO DAILY [facility] Last Admin: 03/28/19 10:41 Dose: 100 mg Constitutional: Yes: NAD Eyes: Yes: WNL HENT: Yes: WNL Neck: Yes: WNL Cardiovascular: Yes: Regular Rate and Rhythm, S1, S2 Respiratory: Yes: Diminished Gastrointestinal: Yes: Normal Bowel Sounds, Soft Extremities: Yes: WNL Edema: No Labs: Laboratory Results - last 24 hr 03/28/19 03/28/19 03/28/19 06:12 07:00 07:00 WBC 9.1 RBC 2.70 L Hgb 8.2 L Hct 25.6 L MCV 94.6 MCH 30.2 MCHC 31.9 L RDW 20.1 H Plt Count 123 L MPV 8.9 Absolute Neuts (auto) 6.6 Neutrophils % 72.8 Lymphocytes % 14.6 Monocytes % 10.0 Eosinophils % 1.8 Basophils % 0.8 Nucleated RBC % 0 Sodium Potassium Chloride Carbon Dioxide Anion Gap BUN Creatinine Est GFR (CKD-EPI)AfAm Est GFR (CKD-EPI)NonAf POC Glucometer 145 Random Glucose Calcium Phosphorus Magnesium Total Bilirubin AST ALT Alkaline Phosphatase Total Protein Albumin Random Vancomycin 23.0 03/28/19 07:00 WBC RBC Hgb Hct MCV MCH MCHC RDW Plt Count MPV Absolute Neuts (auto) Neutrophils % Lymphocytes % Monocytes % Eosinophils % Basophils % Nucleated RBC % Sodium 126 L Potassium 4.2 Chloride 90 L Carbon Dioxide 23 Anion Gap 13 BUN 61.4 H Creatinine 5.4 H Est GFR (CKD-EPI)AfAm 9.36 Est GFR (CKD-EPI)NonAf 8.08 POC Glucometer Random Glucose 129 H Calcium 8.0 L Phosphorus 5.2 H Magnesium 2.1 Total Bilirubin 1.2 H AST 36 ALT 25 Alkaline Phosphatase 110 Total Protein 5.5 L Albumin 3.2 L Random Vancomycin Problem List - Problems (1) Uremic pruritus Code(s): L29.9 - PRURITUS, UNSPECIFIED (2) COPD (chronic obstructive pulmonary disease) Code(s): J44.9 - CHRONIC OBSTRUCTIVE PULMONARY DISEASE, UNSPECIFIED (3) Dyspnea Code(s): R06.00 - DYSPNEA, UNSPECIFIED (4) Mdpud-dw-pwwryzl kidney injury Code(s): N17.9 - ACUTE KIDNEY FAILURE, UNSPECIFIED; N18.9 - CHRONIC KIDNEY DISEASE, UNSPECIFIED (5) CHF (congestive heart failure) Code(s): I50.9 - HEART FAILURE, UNSPECIFIED (6) S/P CABG (coronary artery bypass graft) Code(s): Z95.1 - PRESENCE OF AORTOCORONARY BYPASS GRAFT (7) Troponin I above reference range Code(s): R79.89 - OTHER SPECIFIED ABNORMAL FINDINGS OF BLOOD CHEMISTRY Assessment/Plan IMP DYSPNEA IMPROVED ACUTE ON CHRONIC CHF IMPROVED ACUTE ON CHRONIC KIDNEY FAILURE SEVERE LV SYSTOLIC DYFUNCTION DM COPD NOT IN ACUTE EXACERBATION ASHD S/P CABG + TROPONIN H/O TOBACCO USE LIKELY UREMIC PRURITIS PULMONARY HTN SEVERE MR PLAN HD PER RENAL O2 NEEDED MONITOR LYTES,RENAL FUNCTION BD TX PRN DC PLANNING Dr Santacruz
--- NOTE | 2019-03-28 12:07 | PN ---
Progress Note, Physician History of Present Illness: Pt seen and examined at bedside. She is awake and alert. She denies shortness of breath. She tolerated HD. - Current Medication List Current Medications: Active Medications Acetaminophen (Tylenol -) 650 mg PO Q6H PRN PRN Reason: Fever Or Pain Albuterol/Ipratropium (Duoneb -) 1 amp NEB Q6H PRN PRN Reason: SHORTNESS OF BREATH Last Admin: 03/28/19 02:36 Dose: 1 amp Alprazolam (Xanax -) 0.25 mg PO DAILY@2200 PRN PRN Reason: ANXIETY Last Admin: 03/27/19 21:03 Dose: 0.25 mg Aspirin (Ecotrin -) 81 mg PO DAILY [facility] Last Admin: 03/28/19 10:41 Dose: 81 mg Atorvastatin Calcium (Lipitor -) 20 mg PO HS [facility] Last Admin: 03/27/19 21:03 Dose: Not Given Bacitracin (Bacitracin -) 1 applic TP DAILY [facility] Last Admin: 03/28/19 10:41 Dose: 1 applic Calcium Acetate (Phoslo -) 1,334 mg PO TIDCM [facility] Last Admin: 03/28/19 09:22 Dose: 1,334 mg Diphenhydramine/Calamine/Camphor (Caladryl -) 1 applic TP BID [facility] Last Admin: 03/28/19 10:42 Dose: 1 applic Docusate Sodium (Colace -) 100 mg PO TID [facility] Last Admin: 03/28/19 06:24 Dose: 100 mg Fentanyl (Sublimaze Injection -) 25 mcg IVPUSH [id number] PRN PRN Reason: PAIN-PACU ORDER X 4 DOSES ONLY Ferrous Sulfate (Feosol -) 325 mg PO TIDCM [facility] Last Admin: 03/28/19 10:40 Dose: 325 mg Heparin Sodium (Porcine) (Heparin -) 5,000 unit SQ TID [facility] Last Admin: 03/28/19 06:24 Dose: Not Given Hydroxyzine Pamoate (Vistaril -) 25 mg PO Q8H PRN PRN Reason: FOR ITCHING Sodium Chloride (Normal Saline -) 250 mls @ 3,000 mls/hr IV PRN PRN PRN Reason: Hypotension during Dialysis Stop: 03/29/19 07:46 Isosorbide Mononitrate (Imdur -) 30 mg PO DAILY [facility] Last Admin: 03/28/19 10:40 Dose: 30 mg Loratadine (Claritin -) 10 mg PO HS [facility] Last Admin: 03/27/19 21:02 Dose: 10 mg Melatonin (Melatonin) 3 mg PO HS [facility] Last Admin: 03/27/19 22:29 Dose: Not Given Multivitamins/Minerals (Theragran-M) 1 each PO DAILY [facility] Last Admin: 03/28/19 10:40 Dose: 1 each Polyethylene Glycol (Miralax (For Daily Use) -) 17 gm PO DAILY [facility] Last Admin: 03/28/19 10:42 Dose: 17 gm Prochlorperazine Edisylate (Compazine Injection -) 5 mg IM Q4H PRN PRN Reason: NAUSEA AND/OR VOMITING Last Admin: 03/26/19 16:29 Dose: 5 mg Ropinirole HCl (Requip -) 0.25 mg PO HS [facility] Last Admin: 03/27/19 21:03 Dose: 0.25 mg Thiamine HCl (Vitamin B1 -) 100 mg PO DAILY [facility] Last Admin: 03/28/19 10:41 Dose: 100 mg - Objective Vital Signs: Vital Signs Temperature 98.1 F 03/28/19 06:55 Pulse Rate 92 H 03/28/19 10:20 Respiratory Rate 18 03/28/19 10:20 Blood Pressure 117/80 03/28/19 10:20 O2 Sat by Pulse Oximetry (%) 100 03/28/19 09:00 Constitutional: Yes: Calm Eyes: Yes: Conjunctiva Clear HENT: Yes: Atraumatic Neck: Yes: Supple Cardiovascular: Yes: S1, S2 Respiratory: Yes: CTA Bilaterally Gastrointestinal: Yes: Soft Genitourinary: Yes: WNL Musculoskeletal: Yes: WNL Edema: Yes Edema: LLE: 1+, RLE: 1+ Neurological: Yes: Oriented Psychiatric: Yes: Oriented Labs: CBC, BMP 03/28/19 07:00 03/28/19 07:00 INR, PTT INR 1.39 (0.83-1.09) H 03/23/19 05:30 Assessment/Plan Current Medications Generic Name Dose Route Start Last Admin Trade Name Freq PRN Reason Stop Dose Admin Acetaminophen 650 mg 03/28/19 08:22 Tylenol - PO Q6H PRN Fever Or Pain Albuterol/Ipratropium 1 amp 03/23/19 17:50 03/28/19 02:36 Duoneb - NEB 1 amp Q6H PRN Administration SHORTNESS OF BREATH Alprazolam 0.25 mg 03/27/19 22:00 03/27/19 21:03 Xanax - PO 0.25 mg DAILY@2200 PRN Administration ANXIETY Aspirin 81 mg 03/25/19 10:00 03/28/19 10:41 Ecotrin - PO 81 mg DAILY [facility] Administration Atorvastatin Calcium 20 mg 03/26/19 22:00 03/27/19 21:03 Lipitor - PO Not Given HS [facility] Bacitracin 1 applic 03/24/19 10:00 03/28/19 10:41 Bacitracin - TP 1 applic DAILY [facility] Administration Calcium Acetate 1,334 mg 03/23/19 17:30 03/28/19 09:22 Phoslo - PO 1,334 mg TIDCM [facility] Administration Diphenhydramine/Calamine/Camphor 1 applic 03/23/19 22:00 03/28/19 10:42 Caladryl - TP 1 applic BID [facility] Administration Docusate Sodium 100 mg 03/27/19 10:00 03/28/19 06:24 Colace - PO 100 mg TID [facility] Administration Fentanyl 25 mcg 03/23/19 15:56 Sublimaze Injection - IVPUSH [id number] PRN PAIN-PACU ORDER X 4 DOSES ONLY Ferrous Sulfate 325 mg 03/24/19 08:45 03/28/19 10:40 Feosol - PO 325 mg TIDCM [facility] Administration Heparin Sodium (Porcine) 5,000 unit 03/23/19 22:00 03/28/19 06:24 Heparin - SQ Not Given TID [facility] Hydroxyzine Pamoate 25 mg 03/23/19 15:56 Vistaril - PO Q8H PRN FOR ITCHING Sodium Chloride 250 mls @ 3,000 mls/hr 03/28/19 07:46 Normal Saline - IV 03/29/19 07:46 PRN PRN Hypotension during Dialysis Isosorbide Mononitrate 30 mg 03/25/19 10:00 03/28/19 10:40 Imdur - PO 30 mg DAILY [facility] Administration Loratadine 10 mg 03/26/19 22:00 03/27/19 21:02 Claritin - PO 10 mg HS [facility] Administration Melatonin 3 mg 03/27/19 22:00 03/27/19 22:29 Melatonin PO Not Given HS [facility] Multivitamins/Minerals 1 each 03/24/19 10:00 03/28/19 10:40 Theragran-M PO 1 each DAILY [facility] Administration Polyethylene Glycol 17 gm 03/27/19 14:00 03/28/19 10:42 Miralax (For Daily Use) - PO 17 gm DAILY [facility] Administration Prochlorperazine Edisylate 5 mg 03/23/19 15:56 03/26/19 16:29 Compazine Injection - IM 5 mg Q4H PRN Administration NAUSEA AND/OR VOMITING Ropinirole HCl 0.25 mg 03/26/19 22:00 03/27/19 21:03 Requip - PO 0.25 mg HS [facility] Administration Thiamine HCl 100 mg 03/24/19 10:00 03/28/19 10:41 Vitamin B1 - PO 100 mg DAILY [facility] Administration Impression 1. CKD with YVES 2. CHF 3. DM 4. HTN 5. hyperlipidemia 6. nephrotic range proteinuria 7. CAD 8. elevated troponin 9. hyponatremia Plan - pt tolerated HD - follow renal workup - follow cardio workup - would have to hold aspirin before kidney biopsy, need input from cardio - phos improving - cont phoslo for now - renal diet
[2019-03-28] MEDS ORDERED: FUROSEMIDE 40 MG/4 ML INJECTABLE VIAL IVPUSH ONE (12:22)
[2019-03-28] MEDS ORDERED: VANCOMYCIN 1 GM in D5W (PRE-DOCKED) 1,000 MG/250 ML IVPB ONE (15:00)
[2019-03-28] MEDS: MELATONIN 1 MG TABLET PO SCH (22:25)
[2019-03-28] MEDS: LORATADINE 10 MG TABLET PO SCH (22:29)
[2019-03-28] MEDS: ATORVASTATIN CA 40 MG TABLET (FP) PO SCH (22:30)
[2019-03-28] MEDS: rOPINIRole HCL 0.25 MG TABLET PO SCH (22:41)
[2019-03-28] MEDS: ALPRAZolam 0.25 MG TABLET PO PRN (23:33)
[2019-03-29] MEDS: ALBUTEROL SO4 2.5/IPRATROPIUM 0.5 INH SOL 3 ML VIAL.NEB. NEB PRN ×3 (03:10→21:45)
[2019-03-29] MEDS: HEPARIN NA (PORCINE) 5,000 UNITS/ML 1ML VIAL SQ SCH ×3 (06:38→22:36)
[2019-03-29] MEDS: DOCUSATE SODIUM 100 MG CAPSULE (FP) PO SCH ×3 (06:38→22:37)
[2019-03-29 08:25] LABS: ALBUMIN 3.1 g/dl (3.4-5.0); BILIRUBIN,TOTAL 1.7 mg/dL (0.2-1); BLOOD UREA NITROGEN 36.6 mg/dL (7-18); CALCIUM 7.9 mg/dL (8.5-10.1); CREATININE 3.9 mg/dL (0.55-1.3); PHOSPHOROUS 4.7 mg/dL (2.5-4.9); POTASSIUM 3.8 mmol/L (3.5-5.1); TOT PROT 5.4 g/dl (6.4-8.2)
[2019-03-29] MEDS: FERROUS SO4 325 MG TABLET (FP) PO SCH ×4 (08:26→17:18)
[2019-03-29] MEDS: CALCIUM ACETATE 667 MG CAPSULE (FP) PO SCH ×3 (08:26→17:17)
[2019-03-29 08:44] LABS: BASO % 0.8 % (0-2.0); EOS % 0.7 % (0-4.5); HEMOGLOBIN 8.9 GM/dL (10.7-15.3); LYMPH % 13.9 % (8-40); MCH 29.7 pg (25.7-33.7); MCHC 30.6 g/dl (32.0-36.0); MEAN CELL VOLUME 97.2 fl (80-96); MEAN PLT VOLUME 8.9 fl (7.5-11.1); MONO % 12.9 % (3.8-10.2); NEUT % 71.7 % (42.8-82.8); PLATELET COUNT 101 K/MM3 (134-434); RBC 2.99 M/mm3 (3.60-5.2); RDW 21.3 % (11.6-15.6); WHITE BLOOD COUNT 11.2 K/mm3 (4.0-10.0)
--- NOTE | 2019-03-29 09:41 | PN ---
Physical Exam: SUBJECTIVE: Patient seen and examined at the bedside. denies any chest pain or shortness of breath. feels well but c/o of lower ext edema. OBJECTIVE: No PCP, a pcp appt made for her for post hospital follow up: date: April 05 time: 11:00a.m bring: insurance card, discharge paperwork Patient is a 58 year old female with a significant past medical history of diabetic retinopathy, DM, CAD s/p CABG (4 vessel, 2014) and CHF. She presents to the ED for worsening shortness of breath and malaise and found to have elevated creatinine of 8 and started on dialysis. She also reported a rash that started 2 weeks ago after being scratched by her cat. Rash was reported to be priutirc and spreading. Period Temp Pulse Resp BP Sys/Horowitz Pulse Ox Last 24 Hr 97.2 F-98.0 F 84-94 16-18 103-160/51-86 100 GENERAL: The patient is awake, alert, and fully oriented, in no acute distress. HEAD: Normal with no signs of trauma. EYES: PERRL, extraocular movements intact, sclera anicteric, conjunctiva clear. No ptosis. ENT: Ears normal, nares patent, oropharynx clear without exudates, moist mucous membranes. NECK: Trachea midline, full range of motion, supple. LUNGS: Breath sounds equal, clear to auscultation bilaterally, no wheezes HEART: Regular rate and rhythm ABDOMEN: Soft, nontender, nondistended, normoactive bowel sounds, no guarding EXTREMITIES: +2 tight pitting edema equally bilaterally. NEUROLOGICAL: Normal speech, gait not observed. PSYCH: Normal mood, normal affect. SKIN: Warm, dry, normal turgor, no rashes or lesions noted Laboratory Results - last 24 hr 03/29/19 03/29/19 07:05 07:05 WBC 11.2 H RBC 2.99 L Hgb 8.9 L Hct 29.0 L MCV 97.2 H MCH 29.7 MCHC 30.6 L RDW 21.3 H Plt Count 101 L MPV 8.9 Absolute Neuts (auto) 8.1 H Neutrophils % 71.7 Lymphocytes % 13.9 Monocytes % 12.9 H Eosinophils % 0.7 Basophils % 0.8 Nucleated RBC % 0 Sodium 130 L Potassium 3.8 Chloride 93 L Carbon Dioxide 24 Anion Gap 13 BUN 36.6 H Creatinine 3.9 H Est GFR (CKD-EPI)AfAm 13.87 Est GFR (CKD-EPI)NonAf 11.97 Random Glucose 149 H Calcium 7.9 L Phosphorus 4.7 Magnesium 2.0 Total Bilirubin 1.7 H AST 61 H ALT 33 Alkaline Phosphatase 134 H Total Protein 5.4 L Albumin 3.1 L Active Medications Generic Name Dose Route Start Last Admin Trade Name Freq PRN Reason Stop Dose Admin Acetaminophen 650 mg 03/28/19 08:22 Tylenol - PO Q6H PRN Fever Or Pain Albuterol/Ipratropium 1 amp 03/23/19 17:50 03/29/19 03:10 Duoneb - NEB 1 amp Q6H PRN Administration SHORTNESS OF BREATH Alprazolam 0.25 mg 03/27/19 22:00 03/28/19 23:33 Xanax - PO 0.25 mg DAILY@2200 PRN Administration ANXIETY Aspirin 81 mg 03/25/19 10:00 03/28/19 10:41 Ecotrin - PO 81 mg DAILY [facility] Administration Atorvastatin Calcium 20 mg 03/26/19 22:00 03/28/19 22:30 Lipitor - PO Not Given HS [facility] Bacitracin 1 applic 03/24/19 10:00 03/28/19 10:41 Bacitracin - TP 1 applic DAILY [facility] Administration Calcium Acetate 1,334 mg 03/23/19 17:30 03/29/19 08:26 Phoslo - PO 1,334 mg TIDCM [facility] Administration Diphenhydramine/Calamine/Camphor 1 applic 03/23/19 22:00 03/28/19 22:31 Caladryl - TP 1 applic BID [facility] Administration Docusate Sodium 100 mg 03/27/19 10:00 03/29/19 06:38 Colace - PO 100 mg TID [facility] Administration Fentanyl 25 mcg 03/23/19 15:56 Sublimaze Injection - IVPUSH [id number] PRN PAIN-PACU ORDER X 4 DOSES ONLY Ferrous Sulfate 325 mg 03/24/19 08:45 03/29/19 08:28 Feosol - PO Not Given TIDCM [facility] Heparin Sodium (Porcine) 5,000 unit 03/23/19 22:00 03/29/19 06:38 Heparin - SQ 5,000 unit TID [facility] Administration Hydroxyzine Pamoate 25 mg 03/23/19 15:56 Vistaril - PO Q8H PRN FOR ITCHING Sodium Chloride 250 mls @ 3,000 mls/hr 03/28/19 07:46 Normal Saline - IV 03/29/19 07:46 PRN PRN Hypotension during Dialysis Isosorbide Mononitrate 30 mg 03/25/19 10:00 03/28/19 10:40 Imdur - PO 30 mg DAILY [facility] Administration Loratadine 10 mg 03/26/19 22:00 03/28/19 22:29 Claritin - PO 10 mg HS [facility] Administration Melatonin 3 mg 03/27/19 22:00 03/28/19 22:25 Melatonin PO 3 mg HS [facility] Administration Multivitamins/Minerals 1 each 03/24/19 10:00 03/28/19 10:40 Theragran-M PO 1 each DAILY [facility] Administration Polyethylene Glycol 17 gm 03/27/19 14:00 03/28/19 10:42 Miralax (For Daily Use) - PO 17 gm DAILY [facility] Administration Prochlorperazine Edisylate 5 mg 03/23/19 15:56 03/26/19 16:29 Compazine Injection - IM 5 mg Q4H PRN Administration NAUSEA AND/OR VOMITING Ropinirole HCl 0.5 mg 03/28/19 12:02 03/28/19 22:41 Requip - PO 03/30/19 22:01 0.5 mg HS [facility] Administration Thiamine HCl 100 mg 03/24/19 10:00 03/28/19 10:41 Vitamin B1 - PO 100 mg DAILY [facility] Administration ASSESSMENT/PLAN: Problem List - Problems (1) ESRD (end stage renal disease) on dialysis Assessment/Plan: Creatinine 8.0 on admission with acute shortness of breath and fatigue. new diagnosis. HD in progress, awaiting for home dialysis center appreciate renal consultation avoid nephrotoxic agents plan for AV fistula as outpt Code(s): N18.6 - END STAGE RENAL DISEASE; Z99.2 - DEPENDENCE ON RENAL DIALYSIS (2) Anemia due to chronic kidney disease Assessment/Plan: hgb 8.9 hemodymanically stable will re-assess need for blood transfusion when on HD FeSO4/thiamine/MVI daily Code(s): N18.9 - CHRONIC KIDNEY DISEASE, UNSPECIFIED; D63.1 - ANEMIA IN CHRONIC KIDNEY DISEASE (3) COPD (chronic obstructive pulmonary disease) Assessment/Plan: duo nebs prn supplemental O2 as needed appreciated pulmonary consultation Code(s): J44.9 - CHRONIC OBSTRUCTIVE PULMONARY DISEASE, UNSPECIFIED (4) Dyspnea Assessment/Plan: resolved, tolerating room air. Code(s): R06.00 - DYSPNEA, UNSPECIFIED (5) Troponin I above reference range Code(s): R79.89 - OTHER SPECIFIED ABNORMAL FINDINGS OF BLOOD CHEMISTRY (6) Diabetes mellitus, insulin dependent (IDDM), uncontrolled Assessment/Plan: will check hmga1c glucose not elevated, continue to monitor. Code(s): E10.65 - TYPE 1 DIABETES MELLITUS WITH HYPERGLYCEMIA (7) Hyponatremia Assessment/Plan: improving with fluid restriction Code(s): E87.1 - HYPO-OSMOLALITY AND HYPONATREMIA (8) Hyperphosphatemia Code(s): E83.39 - OTHER DISORDERS OF PHOSPHORUS METABOLISM (9) Hypocalcemia Assessment/Plan: Ca gluconate 1000mg IV given in ED Calcitriol 0.25mcg PO given in ED c/w Phoslo - 2 tabs w/ meals c/w Calcium 500mg/ Vit D 200u 2 tabs daily follow CMP, mag phos daily replete lytes PRN Code(s): E83.51 - HYPOCALCEMIA (10) CHF (congestive heart failure) Assessment/Plan: Strict I's and O's Daily weights Cardiology following TTE LV fx severly reduced, global hypokinesis Pt reports normal stress test earlier this year at [facility], will obtain results ( [phone]) Code(s): I50.9 - HEART FAILURE, UNSPECIFIED (11) Coronary artery disease Assessment/Plan: CAD s/p CABG (4 vessel, 2014) asa 81 daily-given elevated troponins can not hold asa for proposed renal bx TTE noted above Troponins trended down, EKG without ischemic changes no need to further trend Code(s): I25.10 - ATHSCL HEART DISEASE OF [place] CORONARY ARTERY W/O ANG PCTRS Qualifiers: Coronary Disease-Associated Artery/Lesion type: [place] artery [place] vs. transplanted heart: [place] heart Associated angina: without angina Qualified Code(s): I25.10 - Atherosclerotic heart disease of [place] coronary artery without angina pectoris (12) Pyuria Assessment/Plan: UA with 3+ leuk, nitrate -, WBC 442 group b strep UTI, blood cultures negative treated with vancomycin with HD for one week Code(s): R82.81 - PYURIA (13) Rash and nonspecific skin eruption Assessment/Plan: recent cat scratch reported, bortonella negative extreme pruritus partly due to uremia, resolving seen by dermatology- Dr Watson punch biopsy done -will call office [phone] for results c/w calamine lotion to affected area and c/w atarax for puritus Code(s): R21 - RASH AND OTHER NONSPECIFIC SKIN ERUPTION (14) Prophylactic measure Assessment/Plan: FEN renal/diabetic diet monitor electrolytes no additional IVF needed at this time DVT heparin sq Dispo maintain on tele full code discharge planning-HD center being arranged for DC Code(s): Z29.9 - ENCOUNTER FOR PROPHYLACTIC MEASURES, UNSPECIFIED Visit type - Emergency Visit Emergency Visit: Yes ED Registration Date: 03/22/19 Care time: The patient presented to the Emergency Department on the above date and was hospitalized for further evaluation of their emergent condition. - New Patient This patient is new to me today: Yes Date on this admission: 03/29/19 - Critical Care Critical Care patient: No - Discharge Referral Referred to [facility] Med P.C.: Yes
[2019-03-29] MEDS: ISOSORBIDE MONONITRATE 30 MG TAB.SR.24H (FP) PO SCH (10:11)
[2019-03-29] MEDS: MULTIVITAMINS THER W-MINERALS COMBO TABLET (FP) PO SCH (10:11)
[2019-03-29] MEDS: ASPIRIN COATED 81 MG TABLET.EC PO SCH (10:12)
[2019-03-29] MEDS: THIAMINE HCL 100 MG TABLET (FP) PO SCH (10:12)
[2019-03-29] MEDS: PRAMOXINE HCL/CALAMINE 177 ML LOTION TP SCH ×2 (10:13→22:38)
[2019-03-29] MEDS: BACITRACIN 15 GM TUBE TOPICAL OINTMENT TP SCH (10:13)
[2019-03-29] MEDS: POLYETHYLENE GLYCOL 3350 119 GM BTL PO SCH (10:13)
[2019-03-29] MEDS ORDERED: SODIUM CHLORIDE 250 ML IV PRN (12:38)
[2019-03-29] MEDS ORDERED: FUROSEMIDE 100 MG/10 ML INJECTABLE VIAL IVPB ONE (12:38)
--- NOTE | 2019-03-29 12:38 | PN ---
Progress Note, Physician History of Present Illness: Pt seen and examined at bedside. She is awake and alert. She says that she has been drinking alot of water. - Current Medication List Current Medications: Active Medications Acetaminophen (Tylenol -) 650 mg PO Q6H PRN PRN Reason: Fever Or Pain Albuterol/Ipratropium (Duoneb -) 1 amp NEB Q6H PRN PRN Reason: SHORTNESS OF BREATH Last Admin: 03/29/19 03:10 Dose: 1 amp Alprazolam (Xanax -) 0.25 mg PO DAILY@2200 PRN PRN Reason: ANXIETY Last Admin: 03/28/19 23:33 Dose: 0.25 mg Aspirin (Ecotrin -) 81 mg PO DAILY [facility] Last Admin: 03/29/19 10:12 Dose: 81 mg Bacitracin (Bacitracin -) 1 applic TP DAILY [facility] Last Admin: 03/29/19 10:13 Dose: 1 applic Calcium Acetate (Phoslo -) 1,334 mg PO TIDCM [facility] Last Admin: 03/29/19 12:07 Dose: 1,334 mg Diphenhydramine/Calamine/Camphor (Caladryl -) 1 applic TP BID [facility] Last Admin: 03/29/19 10:13 Dose: 1 applic Docusate Sodium (Colace -) 100 mg PO TID [facility] Last Admin: 03/29/19 06:38 Dose: 100 mg Fentanyl (Sublimaze Injection -) 25 mcg IVPUSH [id number] PRN PRN Reason: PAIN-PACU ORDER X 4 DOSES ONLY Ferrous Sulfate (Feosol -) 325 mg PO TIDCM [facility] Last Admin: 03/29/19 12:08 Dose: Not Given Heparin Sodium (Porcine) (Heparin -) 5,000 unit SQ TID [facility] Last Admin: 03/29/19 06:38 Dose: 5,000 unit Hydroxyzine Pamoate (Vistaril -) 25 mg PO Q8H PRN PRN Reason: FOR ITCHING Sodium Chloride (Normal Saline -) 250 mls @ 3,000 mls/hr IV PRN PRN PRN Reason: Hypotension during Dialysis Stop: 03/29/19 07:46 Isosorbide Mononitrate (Imdur -) 30 mg PO DAILY [facility] Last Admin: 03/29/19 10:11 Dose: 30 mg Loratadine (Claritin -) 10 mg PO [facility] Last Admin: 03/28/19 22:29 Dose: 10 mg Melatonin (Melatonin) 3 mg PO [facility] Last Admin: 03/28/19 22:25 Dose: 3 mg Multivitamins/Minerals (Theragran-M) 1 each PO DAILY [facility] Last Admin: 03/29/19 10:11 Dose: 1 each Polyethylene Glycol (Miralax (For Daily Use) -) 17 gm PO DAILY [facility] Last Admin: 03/29/19 10:13 Dose: Not Given Prochlorperazine Edisylate (Compazine Injection -) 5 mg IM Q4H PRN PRN Reason: NAUSEA AND/OR VOMITING Last Admin: 03/26/19 16:29 Dose: 5 mg Ropinirole HCl (Requip -) 0.5 mg PO [facility] Stop: 03/30/19 22:01 Last Admin: 03/28/19 22:41 Dose: 0.5 mg Thiamine HCl (Vitamin B1 -) 100 mg PO DAILY [facility] Last Admin: 03/29/19 10:12 Dose: 100 mg - Objective Vital Signs: Vital Signs Temperature 98.0 F 03/29/19 08:24 Pulse Rate 84 03/29/19 08:24 Respiratory Rate 16 03/29/19 08:24 Blood Pressure 155/86 03/29/19 08:24 O2 Sat by Pulse Oximetry (%) 100 03/28/19 21:00 Constitutional: Yes: Calm Eyes: Yes: Conjunctiva Clear HENT: Yes: Atraumatic Neck: Yes: Supple Cardiovascular: Yes: S1, S2 Respiratory: Yes: CTA Bilaterally Gastrointestinal: Yes: Normal Bowel Sounds, Soft Genitourinary: Yes: WNL Musculoskeletal: Yes: WNL Edema: Yes Edema: LLE: 3+, RLE: 3+ Neurological: Yes: Oriented Psychiatric: Yes: Oriented Labs: CBC, BMP 03/29/19 07:05 03/29/19 07:05 INR, PTT INR 1.39 (0.83-1.09) H 03/23/19 05:30 Assessment/Plan Current Medications Generic Name Dose Route Start Last Admin Trade Name Freq PRN Reason Stop Dose Admin Acetaminophen 650 mg 03/28/19 08:22 Tylenol - PO Q6H PRN Fever Or Pain Albuterol/Ipratropium 1 amp 03/23/19 17:50 03/29/19 03:10 Duoneb - NEB 1 amp Q6H PRN Administration SHORTNESS OF BREATH Alprazolam 0.25 mg 03/27/19 22:00 03/28/19 23:33 Xanax - PO 0.25 mg DAILY@2200 PRN Administration ANXIETY Aspirin 81 mg 03/25/19 10:00 03/29/19 10:12 Ecotrin - PO 81 mg DAILY [facility] Administration Bacitracin 1 applic 03/24/19 10:00 03/29/19 10:13 Bacitracin - TP 1 applic DAILY [facility] Administration Calcium Acetate 1,334 mg 03/23/19 17:30 03/29/19 12:07 Phoslo - PO 1,334 mg TIDCM [facility] Administration Diphenhydramine/Calamine/Camphor 1 applic 03/23/19 22:00 03/29/19 10:13 Caladryl - TP 1 applic BID [facility] Administration Docusate Sodium 100 mg 03/27/19 10:00 03/29/19 06:38 Colace - PO 100 mg TID [facility] Administration Fentanyl 25 mcg 03/23/19 15:56 Sublimaze Injection - IVPUSH [id number] PRN PAIN-PACU ORDER X 4 DOSES ONLY Ferrous Sulfate 325 mg 03/24/19 08:45 03/29/19 12:08 Feosol - PO Not Given TIDCM [facility] Heparin Sodium (Porcine) 5,000 unit 03/23/19 22:00 03/29/19 06:38 Heparin - SQ 5,000 unit TID [facility] Administration Hydroxyzine Pamoate 25 mg 03/23/19 15:56 Vistaril - PO Q8H PRN FOR ITCHING Sodium Chloride 250 mls @ 3,000 mls/hr 03/28/19 07:46 Normal Saline - IV 03/29/19 07:46 PRN PRN Hypotension during Dialysis Isosorbide Mononitrate 30 mg 03/25/19 10:00 03/29/19 10:11 Imdur - PO 30 mg DAILY [facility] Administration Loratadine 10 mg 03/26/19 22:00 03/28/19 22:29 Claritin - PO 10 mg HS [facility] Administration Melatonin 3 mg 03/27/19 22:00 03/28/19 22:25 Melatonin PO 3 mg HS [facility] Administration Multivitamins/Minerals 1 each 03/24/19 10:00 03/29/19 10:11 Theragran-M PO 1 each DAILY [facility] Administration Polyethylene Glycol 17 gm 03/27/19 14:00 03/29/19 10:13 Miralax (For Daily Use) - PO Not Given DAILY [facility] Prochlorperazine Edisylate 5 mg 03/23/19 15:56 03/26/19 16:29 Compazine Injection - IM 5 mg Q4H PRN Administration NAUSEA AND/OR VOMITING Ropinirole HCl 0.5 mg 03/28/19 12:02 03/28/19 22:41 Requip - PO 03/30/19 22:01 0.5 mg HS [facility] Administration Thiamine HCl 100 mg 03/24/19 10:00 03/29/19 10:12 Vitamin B1 - PO 100 mg DAILY [facility] Administration Impression 1. CKD with YVES 2. CHF 3. DM 4. HTN 5. hyperlipidemia 6. nephrotic range proteinuria 7. CAD 8. elevated troponin 9. hyponatremia Plan - restrict free water - will give a dose of lasix - HD tomorrow - follow cardio workup - would have to hold aspirin before kidney biopsy, need input from cardio - renal diet
--- NOTE | 2019-03-29 12:51 | PN ---
Progress Note, Physician History of Present Illness: PULMONARY ALERT,COMFORTABLE,SOB IMPROVING - Current Medication List Current Medications: Active Medications Acetaminophen (Tylenol -) 650 mg PO Q6H PRN PRN Reason: Fever Or Pain Albuterol/Ipratropium (Duoneb -) 1 amp NEB Q6H PRN PRN Reason: SHORTNESS OF BREATH Last Admin: 03/29/19 03:10 Dose: 1 amp Alprazolam (Xanax -) 0.25 mg PO DAILY@2200 PRN PRN Reason: ANXIETY Last Admin: 03/28/19 23:33 Dose: 0.25 mg Aspirin (Ecotrin -) 81 mg PO DAILY [facility] Last Admin: 03/29/19 10:12 Dose: 81 mg Bacitracin (Bacitracin -) 1 applic TP DAILY [facility] Last Admin: 03/29/19 10:13 Dose: 1 applic Calcium Acetate (Phoslo -) 1,334 mg PO TIDCM [facility] Last Admin: 03/29/19 12:07 Dose: 1,334 mg Diphenhydramine/Calamine/Camphor (Caladryl -) 1 applic TP BID [facility] Last Admin: 03/29/19 10:13 Dose: 1 applic Docusate Sodium (Colace -) 100 mg PO TID [facility] Last Admin: 03/29/19 06:38 Dose: 100 mg Fentanyl (Sublimaze Injection -) 25 mcg IVPUSH [id number] PRN PRN Reason: PAIN-PACU ORDER X 4 DOSES ONLY Ferrous Sulfate (Feosol -) 325 mg PO TIDCM [facility] Last Admin: 03/29/19 12:08 Dose: Not Given Heparin Sodium (Porcine) (Heparin -) 5,000 unit SQ TID [facility] Last Admin: 03/29/19 06:38 Dose: 5,000 unit Hydroxyzine Pamoate (Vistaril -) 25 mg PO Q8H PRN PRN Reason: FOR ITCHING Sodium Chloride (Normal Saline -) 250 mls @ 3,000 mls/hr IV PRN PRN PRN Reason: Hypotension during Dialysis Stop: 03/30/19 12:39 Isosorbide Mononitrate (Imdur -) 30 mg PO DAILY [facility] Last Admin: 03/29/19 10:11 Dose: 30 mg Loratadine (Claritin -) 10 mg PO HS [facility] Last Admin: 03/28/19 22:29 Dose: 10 mg Melatonin (Melatonin) 3 mg PO HS [facility] Last Admin: 03/28/19 22:25 Dose: 3 mg Multivitamins/Minerals (Theragran-M) 1 each PO DAILY [facility] Last Admin: 03/29/19 10:11 Dose: 1 each Polyethylene Glycol (Miralax (For Daily Use) -) 17 gm PO DAILY [facility] Last Admin: 03/29/19 10:13 Dose: Not Given Prochlorperazine Edisylate (Compazine Injection -) 5 mg IM Q4H PRN PRN Reason: NAUSEA AND/OR VOMITING Last Admin: 03/26/19 16:29 Dose: 5 mg Ropinirole HCl (Requip -) 0.5 mg PO [facility] Stop: 03/30/19 22:01 Last Admin: 03/28/19 22:41 Dose: 0.5 mg Thiamine HCl (Vitamin B1 -) 100 mg PO DAILY [facility] Last Admin: 03/29/19 10:12 Dose: 100 mg - Objective Vital Signs: Vital Signs Temperature 98.0 F 03/29/19 08:24 Pulse Rate 84 03/29/19 08:24 Respiratory Rate 16 03/29/19 08:24 Blood Pressure 155/86 03/29/19 08:24 O2 Sat by Pulse Oximetry (%) 100 03/28/19 21:00 Constitutional: Yes: Well Nourished, Calm Eyes: Yes: WNL HENT: Yes: WNL Neck: Yes: WNL Cardiovascular: Yes: Regular Rate and Rhythm, S1, S2 Respiratory: Yes: Rales (BIBASIALR CRACKLES) Gastrointestinal: Yes: Normal Bowel Sounds, Soft Extremities: Yes: WNL Edema: No Labs: CBC, BMP 03/29/19 07:05 03/29/19 07:05 INR, PTT INR 1.39 (0.83-1.09) H 03/23/19 05:30 Problem List - Problems (1) Uremic pruritus Code(s): L29.9 - PRURITUS, UNSPECIFIED (2) COPD (chronic obstructive pulmonary disease) Code(s): J44.9 - CHRONIC OBSTRUCTIVE PULMONARY DISEASE, UNSPECIFIED (3) Dyspnea Code(s): R06.00 - DYSPNEA, UNSPECIFIED (4) Qghly-zf-kwlpdrc kidney injury Code(s): N17.9 - ACUTE KIDNEY FAILURE, UNSPECIFIED; N18.9 - CHRONIC KIDNEY DISEASE, UNSPECIFIED (5) CHF (congestive heart failure) Code(s): I50.9 - HEART FAILURE, UNSPECIFIED (6) S/P CABG (coronary artery bypass graft) Code(s): Z95.1 - PRESENCE OF AORTOCORONARY BYPASS GRAFT (7) Troponin I above reference range Code(s): R79.89 - OTHER SPECIFIED ABNORMAL FINDINGS OF BLOOD CHEMISTRY Assessment/Plan IMP DYSPNEA IMPROVED ACUTE ON CHRONIC CHF IMPROVED ACUTE ON CHRONIC KIDNEY FAILURE SEVERE LV SYSTOLIC DYSFUNCTION DM COPD NOT IN ACUTE EXACERBATION ASHD S/P CABG + TROPONIN H/O TOBACCO USE LIKELY UREMIC PRURITIS PULMONARY HTN SEVERE MR PLAN HD PER RENAL O2 MONITOR LYTES,RENAL FUNCTION F/U CHEST X-RAYS RENAL BX PER RENAL DR CHUA Problem List - Problems (1) Uremic pruritus Code(s): L29.9 - PRURITUS, UNSPECIFIED (2) COPD (chronic obstructive pulmonary disease) Code(s): J44.9 - CHRONIC OBSTRUCTIVE PULMONARY DISEASE, UNSPECIFIED (3) Dyspnea Code(s): R06.00 - DYSPNEA, UNSPECIFIED (4) Olmmb-ns-mmctzlp kidney injury Code(s): N17.9 - ACUTE KIDNEY FAILURE, UNSPECIFIED; N18.9 - CHRONIC KIDNEY DISEASE, UNSPECIFIED (5) CHF (congestive heart failure) Code(s): I50.9 - HEART FAILURE, UNSPECIFIED (6) S/P CABG (coronary artery bypass graft) Code(s): Z95.1 - PRESENCE OF AORTOCORONARY BYPASS GRAFT (7) Troponin I above reference range Code(s): R79.89 - OTHER SPECIFIED ABNORMAL FINDINGS OF BLOOD CHEMISTRY
--- NOTE | 2019-03-29 20:57 | PN ---
Progress Note (short form) - Note Progress Note: [facility]'s cardiologists f/u appreciated. patient is lying comfortably, denies SOB or chest discomfort. Active Medications Generic Name Dose Route Start Last Admin Trade Name Freq PRN Reason Stop Dose Admin Acetaminophen 650 mg 03/28/19 08:22 Tylenol - PO Q6H PRN Fever Or Pain Albuterol/Ipratropium 1 amp 03/23/19 17:50 03/29/19 12:30 Duoneb - NEB 1 amp Q6H PRN Administration SHORTNESS OF BREATH Alprazolam 0.25 mg 03/27/19 22:00 03/28/19 23:33 Xanax - PO 0.25 mg DAILY@2200 PRN Administration ANXIETY Aspirin 81 mg 03/25/19 10:00 03/29/19 10:12 Ecotrin - PO 81 mg DAILY [facility] Administration Bacitracin 1 applic 03/24/19 10:00 03/29/19 10:13 Bacitracin - TP 1 applic DAILY [facility] Administration Calcium Acetate 1,334 mg 03/23/19 17:30 03/29/19 17:17 Phoslo - PO 1,334 mg TIDCM [facility] Administration Diphenhydramine/Calamine/Camphor 1 applic 03/23/19 22:00 03/29/19 10:13 Caladryl - TP 1 applic BID [facility] Administration Docusate Sodium 100 mg 03/27/19 10:00 03/29/19 14:51 Colace - PO Not Given TID [facility]NA Fentanyl 25 mcg 03/23/19 15:56 Sublimaze Injection - IVPUSH [id number] PRN PAIN-PACU ORDER X 4 DOSES ONLY Ferrous Sulfate 325 mg 03/24/19 08:45 03/29/19 17:18 Feosol - PO Not Given TIDCM [facility] Heparin Sodium (Porcine) 5,000 unit 03/23/19 22:00 03/29/19 14:50 Heparin - SQ 5,000 unit TID [facility] Administration Hydroxyzine Pamoate 25 mg 03/23/19 15:56 Vistaril - PO Q8H PRN FOR ITCHING Sodium Chloride 250 mls @ 3,000 mls/hr 03/29/19 12:38 Normal Saline - IV 03/30/19 12:39 PRN PRN Hypotension during Dialysis Isosorbide Mononitrate 30 mg 03/25/19 10:00 03/29/19 10:11 Imdur - PO 30 mg DAILY [facility] Administration Loratadine 10 mg 03/26/19 22:00 03/28/19 22:29 Claritin - PO 10 mg HS [facility]NA Administration Melatonin 3 mg 03/27/19 22:00 03/28/19 22:25 Melatonin PO 3 mg HS [facility] Administration Multivitamins/Minerals 1 each 03/24/19 10:00 03/29/19 10:11 Theragran-M PO 1 each DAILY [facility] Administration Polyethylene Glycol 17 gm 03/27/19 14:00 03/29/19 10:13 Miralax (For Daily Use) - PO Not Given DAILY [facility] Prochlorperazine Edisylate 5 mg 03/23/19 15:56 03/26/19 16:29 Compazine Injection - IM 5 mg Q4H PRN Administration NAUSEA AND/OR VOMITING Ropinirole HCl 0.5 mg 03/28/19 12:02 03/28/19 22:41 Requip - PO 03/30/19 22:01 0.5 mg HS [facility] Administration Thiamine HCl 100 mg 03/24/19 10:00 03/29/19 10:12 Vitamin B1 - PO 100 mg DAILY [facility] Administration 58-year-old female was in no acute distress, there was pallor, no cyanosis, clubbing or jaundice. Last Vital Signs Temp Pulse Resp BP Pulse Ox 97.0 F L 86 18 136/73 95 03/29/19 18:00 03/29/19 18:00 03/29/19 18:00 03/29/19 18:00 03/29/19 09:00 NECK: Supple, no jugular venous distention, +ve hepatojugular reflux , carotids were 2+, upstrokes were normal, no bruits were heard. HEART: PMI is the fifth intercostal space, no heaves or thrills, S1 and S2 were normal, grade II/ decrescendo systolic murmur was heard at the apex and left sternal border. No diastolic murmur or gallops were heard.. LUNGS: Decreased breath sounds at the bases. No extraneous sounds were heard. ABDOMEN:, Soft, nontender, no hepatosplenomegaly, no palpable masses. EXTREMITIES: No calf tenderness 2+ bilateral lower extremity dependent edema. CBC, BMP 03/29/19 07:05 03/29/19 07:05 IMRESSIONS: 1. Congestive heart failure NYHA II 2. Elevated troponin levels, etiology: a). Related to acute renal failure. b): Congestive heart failure. c). Ischemic heart disease/NSTEMI 3. Diabetes mellitus. 4. Coronary artery disease,status post myocardial infarction, status post status post CABG. 5. Status post sternal wound infection (resolved). 6. Poor compliance. 7. Hypercholesterolemia. 8. Anemia. 9. Poor compliance. RECOMMENDATIONS: 1. Continue therapy. 2. Once patient had been stabilized, consider Lexiscan myocardial perfusion study. 3. Risk modifications. 4. Increase ambulation.
[2019-03-29] MEDS ORDERED: PT OWN MED DRAWER 7, Y5N ONE (22:09)
[2019-03-29] MEDS: ALPRAZolam 0.25 MG TABLET PO PRN (22:36)
[2019-03-29] MEDS: rOPINIRole HCL 0.25 MG TABLET PO SCH (22:36)
[2019-03-29] MEDS: MELATONIN 1 MG TABLET PO SCH (22:37)
[2019-03-29] MEDS: LORATADINE 10 MG TABLET PO SCH (22:37)
[2019-03-30] MEDS: HEPARIN NA (PORCINE) 5,000 UNITS/ML 1ML VIAL SQ SCH ×3 (06:19→21:25)
[2019-03-30] MEDS: DOCUSATE SODIUM 100 MG CAPSULE (FP) PO SCH ×2 (06:19→14:11)
[2019-03-30] MEDS: ALBUTEROL SO4 2.5/IPRATROPIUM 0.5 INH SOL 3 ML VIAL.NEB. NEB PRN ×2 (06:35→16:38)
[2019-03-30] MEDS: CALCIUM ACETATE 667 MG CAPSULE (FP) PO SCH ×3 (08:54→17:51)
[2019-03-30] MEDS: FERROUS SO4 325 MG TABLET (FP) PO SCH ×4 (08:54→17:51)
[2019-03-30] MEDS ORDERED: PT OWN MED DRAWER 7, Y5N ONE (09:01)
[2019-03-30] MEDS: BACITRACIN 15 GM TUBE TOPICAL OINTMENT TP SCH (09:33)
[2019-03-30] MEDS: PRAMOXINE HCL/CALAMINE 177 ML LOTION TP SCH ×2 (09:34→21:26)
[2019-03-30] MEDS: MULTIVITAMINS THER W-MINERALS COMBO TABLET (FP) PO SCH (09:37)
[2019-03-30] MEDS: ASPIRIN COATED 81 MG TABLET.EC PO SCH (09:37)
[2019-03-30] MEDS: ISOSORBIDE MONONITRATE 30 MG TAB.SR.24H (FP) PO SCH (09:37)
[2019-03-30] MEDS: POLYETHYLENE GLYCOL 3350 119 GM BTL PO SCH (09:38)
[2019-03-30] MEDS: THIAMINE HCL 100 MG TABLET (FP) PO SCH (09:38)
--- NOTE | 2019-03-30 11:26 | PN ---
Progress Note, Physician History of Present Illness: Pt seen and examined at bedside. She is awake and alert. She denies shortness of breath. he complains of lower ext edema. - Current Medication List Current Medications: Active Medications Acetaminophen (Tylenol -) 650 mg PO Q6H PRN PRN Reason: Fever Or Pain Albuterol/Ipratropium (Duoneb -) 1 amp NEB Q6H PRN PRN Reason: SHORTNESS OF BREATH Last Admin: 03/30/19 06:35 Dose: 1 amp Alprazolam (Xanax -) 0.25 mg PO DAILY@2200 PRN PRN Reason: ANXIETY Last Admin: 03/29/19 22:36 Dose: 0.25 mg Aspirin (Ecotrin -) 81 mg PO DAILY [facility] Last Admin: 03/30/19 09:37 Dose: 81 mg Bacitracin (Bacitracin -) 1 applic TP DAILY [facility] Last Admin: 03/30/19 09:33 Dose: 1 applic Calcium Acetate (Phoslo -) 1,334 mg PO TIDCM [facility] Last Admin: 03/30/19 08:54 Dose: 1,334 mg Diphenhydramine/Calamine/Camphor (Caladryl -) 1 applic TP BID [facility] Last Admin: 03/30/19 09:34 Dose: 1 applic Docusate Sodium (Colace -) 100 mg PO TID [facility] Last Admin: 03/30/19 06:19 Dose: Not Given Fentanyl (Sublimaze Injection -) 25 mcg IVPUSH [id number] PRN PRN Reason: PAIN-PACU ORDER X 4 DOSES ONLY Ferrous Sulfate (Feosol -) 325 mg PO TIDCM [facility] Last Admin: 03/30/19 08:55 Dose: Not Given Heparin Sodium (Porcine) (Heparin -) 5,000 unit SQ TID [facility] Last Admin: 03/30/19 06:19 Dose: 5,000 unit Hydroxyzine Pamoate (Vistaril -) 25 mg PO Q8H PRN PRN Reason: FOR ITCHING Sodium Chloride (Normal Saline -) 250 mls @ 3,000 mls/hr IV PRN PRN PRN Reason: Hypotension during Dialysis Stop: 03/30/19 12:39 Isosorbide Mononitrate (Imdur -) 30 mg PO DAILY [facility] Last Admin: 03/30/19 09:37 Dose: 30 mg Loratadine (Claritin -) 10 mg PO [facility] Last Admin: 03/29/19 22:37 Dose: 10 mg Melatonin (Melatonin) 3 mg PO [facility] Last Admin: 03/29/19 22:37 Dose: Not Given Multivitamins/Minerals (Theragran-M) 1 each PO DAILY [facility] Last Admin: 03/30/19 09:37 Dose: 1 each Polyethylene Glycol (Miralax (For Daily Use) -) 17 gm PO DAILY [facility] Last Admin: 03/30/19 09:38 Dose: Not Given Prochlorperazine Edisylate (Compazine Injection -) 5 mg IM Q4H PRN PRN Reason: NAUSEA AND/OR VOMITING Last Admin: 03/26/19 16:29 Dose: 5 mg Ropinirole HCl (Requip -) 0.5 mg PO [facility] Stop: 03/30/19 22:01 Last Admin: 03/29/19 22:36 Dose: 0.5 mg Thiamine HCl (Vitamin B1 -) 100 mg PO DAILY [facility] Last Admin: 03/30/19 09:38 Dose: 100 mg - Objective Vital Signs: Vital Signs Temperature 97.8 F 03/30/19 10:00 Pulse Rate 93 H 03/30/19 10:00 Respiratory Rate 18 03/30/19 10:00 Blood Pressure 180/83 H 03/30/19 10:00 O2 Sat by Pulse Oximetry (%) 95 03/30/19 09:00 Constitutional: Yes: Calm Eyes: Yes: Conjunctiva Clear HENT: Yes: Atraumatic Neck: Yes: Supple Cardiovascular: Yes: S1, S2 Respiratory: Yes: CTA Bilaterally Gastrointestinal: Yes: Soft Genitourinary: Yes: WNL Musculoskeletal: Yes: WNL Edema: Yes Edema: LLE: 2+, RLE: 2+ Neurological: Yes: Oriented Psychiatric: Yes: Oriented Labs: CBC, BMP 03/29/19 07:05 03/29/19 07:05 INR, PTT INR 1.39 (0.83-1.09) H 03/23/19 05:30 Assessment/Plan Current Medications Generic Name Dose Route Start Last Admin Trade Name Freq PRN Reason Stop Dose Admin Acetaminophen 650 mg 03/28/19 08:22 Tylenol - PO Q6H PRN Fever Or Pain Albuterol/Ipratropium 1 amp 03/23/19 17:50 03/30/19 06:35 Duoneb - NEB 1 amp Q6H PRN Administration SHORTNESS OF BREATH Alprazolam 0.25 mg 03/27/19 22:00 03/29/19 22:36 Xanax - PO 0.25 mg DAILY@2200 PRN Administration ANXIETY Aspirin 81 mg 03/25/19 10:00 03/30/19 09:37 Ecotrin - PO 81 mg DAILY [facility] Administration Bacitracin 1 applic 03/24/19 10:00 03/30/19 09:33 Bacitracin - TP 1 applic DAILY [facility] Administration Calcium Acetate 1,334 mg 03/23/19 17:30 03/30/19 08:54 Phoslo - PO 1,334 mg TIDCM [facility] Administration Diphenhydramine/Calamine/Camphor 1 applic 03/23/19 22:00 03/30/19 09:34 Caladryl - TP 1 applic BID [facility] Administration Docusate Sodium 100 mg 03/27/19 10:00 03/30/19 06:19 Colace - PO Not Given TID [facility] Fentanyl 25 mcg 03/23/19 15:56 Sublimaze Injection - IVPUSH [id number] PRN PAIN-PACU ORDER X 4 DOSES ONLY Ferrous Sulfate 325 mg 03/24/19 08:45 03/30/19 08:55 Feosol - PO Not Given TIDCM [facility] Heparin Sodium (Porcine) 5,000 unit 03/23/19 22:00 03/30/19 06:19 Heparin - SQ 5,000 unit TID [facility] Administration Hydroxyzine Pamoate 25 mg 03/23/19 15:56 Vistaril - PO Q8H PRN FOR ITCHING Sodium Chloride 250 mls @ 3,000 mls/hr 03/29/19 12:38 Normal Saline - IV 03/30/19 12:39 PRN PRN Hypotension during Dialysis Isosorbide Mononitrate 30 mg 03/25/19 10:00 03/30/19 09:37 Imdur - PO 30 mg DAILY [facility] Administration Loratadine 10 mg 03/26/19 22:00 03/29/19 22:37 Claritin - PO 10 mg HS [facility] Administration Melatonin 3 mg 03/27/19 22:00 03/29/19 22:37 Melatonin PO Not Given HS [facility] Multivitamins/Minerals 1 each 03/24/19 10:00 03/30/19 09:37 Theragran-M PO 1 each DAILY [facility] Administration Polyethylene Glycol 17 gm 03/27/19 14:00 03/30/19 09:38 Miralax (For Daily Use) - PO Not Given DAILY [facility] Prochlorperazine Edisylate 5 mg 03/23/19 15:56 03/26/19 16:29 Compazine Injection - IM 5 mg Q4H PRN Administration NAUSEA AND/OR VOMITING Ropinirole HCl 0.5 mg 03/28/19 12:02 03/29/19 22:36 Requip - PO 03/30/19 22:01 0.5 mg HS [facility]NA Administration Thiamine HCl 100 mg 03/24/19 10:00 03/30/19 09:38 Vitamin B1 - PO 100 mg DAILY [facility] Administration Impression 1. CKD with YVES 2. CHF 3. DM 4. HTN 5. hyperlipidemia 6. nephrotic range proteinuria 7. CAD 8. elevated troponin 9. hyponatremia Plan - HD today - fluid restriction - rheum eval for low compliment - unable to do renal biopsy as she is on aspirin - renal diet
--- NOTE | 2019-03-30 11:32 | PN ---
Progress Note, Physician History of Present Illness: PULMONARY ALERT,COMFORTABLE,-RESP DISTRESS - Current Medication List Current Medications: Active Medications Acetaminophen (Tylenol -) 650 mg PO Q6H PRN PRN Reason: Fever Or Pain Albuterol/Ipratropium (Duoneb -) 1 amp NEB Q6H PRN PRN Reason: SHORTNESS OF BREATH Last Admin: 03/30/19 06:35 Dose: 1 amp Alprazolam (Xanax -) 0.25 mg PO DAILY@2200 PRN PRN Reason: ANXIETY Last Admin: 03/29/19 22:36 Dose: 0.25 mg Aspirin (Ecotrin -) 81 mg PO DAILY [facility] Last Admin: 03/30/19 09:37 Dose: 81 mg Bacitracin (Bacitracin -) 1 applic TP DAILY [facility] Last Admin: 03/30/19 09:33 Dose: 1 applic Calcium Acetate (Phoslo -) 1,334 mg PO TIDCM [facility] Last Admin: 03/30/19 08:54 Dose: 1,334 mg Diphenhydramine/Calamine/Camphor (Caladryl -) 1 applic TP BID [facility] Last Admin: 03/30/19 09:34 Dose: 1 applic Docusate Sodium (Colace -) 100 mg PO TID [facility] Last Admin: 03/30/19 06:19 Dose: Not Given Fentanyl (Sublimaze Injection -) 25 mcg IVPUSH [id number] PRN PRN Reason: PAIN-PACU ORDER X 4 DOSES ONLY Ferrous Sulfate (Feosol -) 325 mg PO TIDCM [facility] Last Admin: 03/30/19 08:55 Dose: Not Given Heparin Sodium (Porcine) (Heparin -) 5,000 unit SQ TID [facility] Last Admin: 03/30/19 06:19 Dose: 5,000 unit Hydroxyzine Pamoate (Vistaril -) 25 mg PO Q8H PRN PRN Reason: FOR ITCHING Sodium Chloride (Normal Saline -) 250 mls @ 3,000 mls/hr IV PRN PRN PRN Reason: Hypotension during Dialysis Stop: 03/30/19 12:39 Isosorbide Mononitrate (Imdur -) 30 mg PO DAILY [facility] Last Admin: 03/30/19 09:37 Dose: 30 mg Loratadine (Claritin -) 10 mg PO HS [facility] Last Admin: 03/29/19 22:37 Dose: 10 mg Melatonin (Melatonin) 3 mg PO [facility] Last Admin: 03/29/19 22:37 Dose: Not Given Multivitamins/Minerals (Theragran-M) 1 each PO DAILY [facility] Last Admin: 03/30/19 09:37 Dose: 1 each Polyethylene Glycol (Miralax (For Daily Use) -) 17 gm PO DAILY [facility] Last Admin: 03/30/19 09:38 Dose: Not Given Prochlorperazine Edisylate (Compazine Injection -) 5 mg IM Q4H PRN PRN Reason: NAUSEA AND/OR VOMITING Last Admin: 03/26/19 16:29 Dose: 5 mg Ropinirole HCl (Requip -) 0.5 mg PO [facility] Stop: 03/30/19 22:01 Last Admin: 03/29/19 22:36 Dose: 0.5 mg Thiamine HCl (Vitamin B1 -) 100 mg PO DAILY [facility] Last Admin: 03/30/19 09:38 Dose: 100 mg - Objective Vital Signs: Vital Signs Temperature 97.8 F 03/30/19 10:00 Pulse Rate 93 H 03/30/19 10:00 Respiratory Rate 18 03/30/19 10:00 Blood Pressure 180/83 H 03/30/19 10:00 O2 Sat by Pulse Oximetry (%) 95 03/30/19 09:00 Constitutional: Yes: Well Nourished, Calm Eyes: Yes: WNL HENT: Yes: WNL Neck: Yes: WNL Cardiovascular: Yes: Regular Rate and Rhythm, S1, S2 Respiratory: Yes: Rales (BIBASAILAR RALES) Gastrointestinal: Yes: Normal Bowel Sounds, Soft Extremities: Yes: WNL Edema: Yes Labs: CBC, BMP 03/29/19 07:05 Problem List - Problems (1) Uremic pruritus Code(s): L29.9 - PRURITUS, UNSPECIFIED (2) COPD (chronic obstructive pulmonary disease) Code(s): J44.9 - CHRONIC OBSTRUCTIVE PULMONARY DISEASE, UNSPECIFIED (3) Dyspnea Code(s): R06.00 - DYSPNEA, UNSPECIFIED (4) Izjsl-tq-[id number] kidney injury Code(s): N17.9 - ACUTE KIDNEY FAILURE, UNSPECIFIED; N18.9 - CHRONIC KIDNEY DISEASE, UNSPECIFIED (5) CHF (congestive heart failure) Code(s): I50.9 - HEART FAILURE, UNSPECIFIED (6) S/P CABG (coronary artery bypass graft) Code(s): Z95.1 - PRESENCE OF AORTOCORONARY BYPASS GRAFT (7) Troponin I above reference range Code(s): R79.89 - OTHER SPECIFIED ABNORMAL FINDINGS OF BLOOD CHEMISTRY Assessment/Plan IMP DYSPNEA IMPROVED ACUTE ON CHRONIC CHF IMPROVED ACUTE ON CHRONIC KIDNEY FAILURE SEVERE LV SYSTOLIC DYSFUNCTION DM COPD NOT IN ACUTE EXACERBATION ASHD S/P CABG + TROPONIN H/O TOBACCO USE LIKELY UREMIC PRURITIS PULMONARY HTN SEVERE MR PLAN HD PER RENAL O2 MONITOR LYTES,RENAL FUNCTION F/U CHEST X-RAYS RENAL BX PER RENAL DR CHUA Problem List - Problems (1) Uremic pruritus Code(s): L29.9 - PRURITUS, UNSPECIFIED (2) COPD (chronic obstructive pulmonary disease) Code(s): J44.9 - CHRONIC OBSTRUCTIVE PULMONARY DISEASE, UNSPECIFIED (3) Dyspnea Code(s): R06.00 - DYSPNEA, UNSPECIFIED (4) [id number] kidney injury Code(s): N17.9 - ACUTE KIDNEY FAILURE, UNSPECIFIED; N18.9 - CHRONIC KIDNEY DISEASE, UNSPECIFIED (5) CHF (congestive heart failure) Code(s): I50.9 - HEART FAILURE, UNSPECIFIED (6) S/P CABG (coronary artery bypass graft) Code(s): Z95.1 - PRESENCE OF AORTOCORONARY BYPASS GRAFT (7) Troponin I above reference range Code(s): R79.89 - OTHER SPECIFIED ABNORMAL FINDINGS OF BLOOD CHEMISTRY
--- NOTE | 2019-03-30 11:49 | PN ---
Progress Note (short form) - Note Progress Note: Denies SOB or chest discomfort. persistent pedal edema, awaiting dialysis. Active Medications Acetaminophen (Tylenol -) 650 mg PO Q6H PRN PRN Reason: Fever Or Pain Albuterol/Ipratropium (Duoneb -) 1 amp NEB Q6H PRN PRN Reason: SHORTNESS OF BREATH Last Admin: 03/30/19 06:35 Dose: 1 amp Alprazolam (Xanax -) 0.25 mg PO DAILY@2200 PRN PRN Reason: ANXIETY Last Admin: 03/29/19 22:36 Dose: 0.25 mg Aspirin (Ecotrin -) 81 mg PO DAILY [facility] Last Admin: 03/30/19 09:37 Dose: 81 mg Bacitracin (Bacitracin -) 1 applic TP DAILY [facility] Last Admin: 03/30/19 09:33 Dose: 1 applic Calcium Acetate (Phoslo -) 1,334 mg PO TIDCM [facility] Last Admin: 03/30/19 11:49 Dose: 1,334 mg Diphenhydramine/Calamine/Camphor (Caladryl -) 1 applic TP BID [facility] Last Admin: 03/30/19 09:34 Dose: 1 applic Docusate Sodium (Colace -) 100 mg PO TID [facility] Last Admin: 03/30/19 06:19 Dose: Not Given Fentanyl (Sublimaze Injection -) 25 mcg IVPUSH [id number] PRN PRN Reason: PAIN-PACU ORDER X 4 DOSES ONLY Ferrous Sulfate (Feosol -) 325 mg PO TIDCM [facility] Last Admin: 03/30/19 11:49 Dose: Not Given Heparin Sodium (Porcine) (Heparin -) 5,000 unit SQ TID [facility] Last Admin: 03/30/19 06:19 Dose: 5,000 unit Hydroxyzine Pamoate (Vistaril -) 25 mg PO Q8H PRN PRN Reason: FOR ITCHING Sodium Chloride (Normal Saline -) 250 mls @ 3,000 mls/hr IV PRN PRN PRN Reason: Hypotension during Dialysis Stop: 03/30/19 12:39 Isosorbide Mononitrate (Imdur -) 30 mg PO DAILY [facility] Last Admin: 03/30/19 09:37 Dose: 30 mg Loratadine (Claritin -) 10 mg PO HS [facility] Last Admin: 03/29/19 22:37 Dose: 10 mg Melatonin (Melatonin) 3 mg PO [facility] Last Admin: 03/29/19 22:37 Dose: Not Given Multivitamins/Minerals (Theragran-M) 1 each PO DAILY [facility] Last Admin: 03/30/19 09:37 Dose: 1 each Polyethylene Glycol (Miralax (For Daily Use) -) 17 gm PO DAILY [facility] Last Admin: 03/30/19 09:38 Dose: Not Given Prochlorperazine Edisylate (Compazine Injection -) 5 mg IM Q4H PRN PRN Reason: NAUSEA AND/OR VOMITING Last Admin: 03/26/19 16:29 Dose: 5 mg Ropinirole HCl (Requip -) 0.5 mg PO [facility] Stop: 03/30/19 22:01 Last Admin: 03/29/19 22:36 Dose: 0.5 mg Thiamine HCl (Vitamin B1 -) 100 mg PO DAILY [facility] Last Admin: 03/30/19 09:38 Dose: 100 mg 58-year-old female was in no acute distress, there was pallor, no cyanosis, clubbing or jaundice. Last Vital Signs Temp Pulse Resp BP Pulse Ox 97.8 F 93 H 18 180/83 H 95 03/30/19 10:00 03/30/19 10:00 03/30/19 10:00 03/30/19 10:00 03/30/19 09:00 NECK: Supple, no jugular venous distention, +ve hepatojugular reflux , carotids were 2+, upstrokes were normal, no bruits were heard. HEART: PMI is the fifth intercostal space, no heaves or thrills, S1 and S2 were normal, grade II/ decrescendo systolic murmur was heard at the apex and left sternal border. No diastolic murmur or gallops were heard. LUNGS: Decreased breath sounds at the bases. No extraneous sounds were heard. ABDOMEN:, Soft, nontender, no hepatosplenomegaly, no palpable masses. EXTREMITIES: No calf tenderness 2+ bilateral dependent edema. CBC, BMP 03/29/19 07:05 03/29/19 07:05 IMRESSIONS: 1. Congestive heart failure NYHA II 2. Elevated troponin levels, etiology: a). Related to acute renal failure. b): Congestive heart failure. c). Ischemic heart disease/NSTEMI 3. Diabetes mellitus. 4. Coronary artery disease,status post myocardial infarction, status post status post CABG. 5. Status post sternal wound infection (resolved). 6. Poor compliance. 7. Hypercholesterolemia. 8. Anemia. 9. Poor compliance. RECOMMENDATIONS: 1. Continue therapy. 2. Myocardial perfusion study scheduled for tommrow. 3. Risk modifications. 4. Increase ambulation.
[2019-03-30 13:21] LABS: BASO % 0.5 % (0-2.0); EOS % 1.5 % (0-4.5); HEMATOCRIT 26.1 % (32.4-45.2); HEMOGLOBIN 7.9 GM/dL (10.7-15.3); LYMPH % 11.3 % (8-40); MCH 29.4 pg (25.7-33.7); MCHC 30.3 g/dl (32.0-36.0); MEAN CELL VOLUME 97.1 fl (80-96); MEAN PLT VOLUME 9.2 fl (7.5-11.1); MONO % 8.1 % (3.8-10.2); NEUT % 78.6 % (42.8-82.8); PLATELET COUNT 120 K/MM3 (134-434); RBC 2.69 M/mm3 (3.60-5.2); RDW 20.6 % (11.6-15.6); WHITE BLOOD COUNT 12.1 K/mm3 (4.0-10.0)
[2019-03-30 13:37] LABS: ALBUMIN 2.9 g/dl (3.4-5.0); BLOOD UREA NITROGEN 45.8 mg/dL (7-18); CALCIUM 8.5 mg/dL (8.5-10.1); CREATININE 4.8 mg/dL (0.55-1.3); MAGNESIUM 2.2 mg/dL (1.8-2.4); POTASSIUM 4.1 mmol/L (3.5-5.1); TOT PROT 5.2 g/dl (6.4-8.2)
[2019-03-30] MEDS ORDERED: DOCUSATE SODIUM 100 MG CAPSULE (FP) PO ONE (14:32)
--- NOTE | 2019-03-30 17:11 | PN ---
Physical Exam: SUBJECTIVE: Patient seen and examined at the bedside. OBJECTIVE: npo for stress test in a.m. for 1 unit of prbc today for hmg 7.9 with cardiac disease No PCP, a pcp appt made for her for post hospital follow up: date: April 05 time: 11:00a.m bring: insurance card, discharge paperwork Patient is a 58 year old female with a significant past medical history of diabetic retinopathy, DM, CAD s/p CABG (4 vessel, 2014) and CHF. She presents to the ED for worsening shortness of breath and malaise and found to have elevated creatinine of 8 and started on dialysis. She also reported a rash that started 2 weeks ago after being scratched by her cat. Rash was reported to be priutirc and spreading. Vital Signs Period Temp Pulse Resp BP Sys/Horowitz Pulse Ox Last 24 Hr 97.0 F-98.8 F 85-94 16-18 111-180/64-101 95-95 GENERAL: The patient is awake, alert, and fully oriented, in no acute distress. HEAD: Normal with no signs of trauma. EYES: PERRL, extraocular movements intact, sclera anicteric, conjunctiva clear. No ptosis. ENT: Ears normal, nares patent, oropharynx clear without exudates, moist mucous membranes. NECK: Trachea midline, full range of motion, supple. LUNGS: Breath sounds equal, clear to auscultation bilaterally, no wheezes HEART: Regular rate and rhythm ABDOMEN: Soft, nontender, nondistended, normoactive bowel sounds, no guarding EXTREMITIES: +2 tight pitting edema equally bilaterally. NEUROLOGICAL: Normal speech, gait not observed. PSYCH: Normal mood, normal affect. Laboratory Results - last 24 hr 03/30/19 03/30/19 03/30/19 12:34 12:34 12:34 WBC 12.1 H RBC 2.69 L Hgb 7.9 L Hct 26.1 L MCV 97.1 H MCH 29.4 MCHC 30.3 L RDW 20.6 H Plt Count 120 L MPV 9.2 Absolute Neuts (auto) 9.5 H Neutrophils % 78.6 Lymphocytes % 11.3 Monocytes % 8.1 Eosinophils % 1.5 D Basophils % 0.5 Nucleated RBC % 0 Sodium 129 L Potassium 4.1 Chloride 90 L Carbon Dioxide 28 Anion Gap 11 BUN 45.8 H Creatinine 4.8 H Est GFR (CKD-EPI)AfAm 10.79 Est GFR (CKD-EPI)NonAf 9.31 Random Glucose 158 H Hemoglobin A1c % 5.8 Calcium 8.5 Magnesium 2.2 Total Bilirubin 1.0 AST 36 ALT 31 Alkaline Phosphatase 150 H Total Protein 5.2 L Albumin 2.9 L Blood Type Antibody Screen Crossmatch 03/30/19 14:15 WBC RBC Hgb Hct MCV MCH MCHC RDW Plt Count MPV Absolute Neuts (auto) Neutrophils % Lymphocytes % Monocytes % Eosinophils % Basophils % Nucleated RBC % Sodium Potassium Chloride Carbon Dioxide Anion Gap BUN Creatinine Est GFR (CKD-EPI)AfAm Est GFR (CKD-EPI)NonAf Random Glucose Hemoglobin A1c % Calcium Magnesium Total Bilirubin AST ALT Alkaline Phosphatase Total Protein Albumin Blood Type O POSITIVE Antibody Screen Negative Crossmatch See Detail Active Medications Generic Name Dose Route Start Last Admin Trade Name Freq PRN Reason Stop Dose Admin Acetaminophen 650 mg 03/28/19 08:22 Tylenol - PO Q6H PRN Fever Or Pain Albuterol/Ipratropium 1 amp 03/23/19 17:50 03/30/19 16:38 Duoneb - NEB 1 amp Q6H PRN Administration SHORTNESS OF BREATH Alprazolam 0.25 mg 03/27/19 22:00 03/29/19 22:36 Xanax - PO 0.25 mg DAILY@2200 PRN Administration ANXIETY Aspirin 81 mg 03/25/19 10:00 03/30/19 09:37 Ecotrin - PO 81 mg DAILY DEANNA Administration Bacitracin 1 applic 03/24/19 10:00 03/30/19 09:33 Bacitracin - TP 1 applic DAILY DEANNA Administration Calcium Acetate 1,334 mg 03/23/19 17:30 03/30/19 11:49 Phoslo - PO 1,334 mg TIDCM DEANNA Administration Diphenhydramine/Calamine/Camphor 1 applic 03/23/19 22:00 03/30/19 09:34 Caladryl - TP 1 applic BID DEANNA Administration Fentanyl 25 mcg 03/23/19 15:56 Sublimaze Injection - IVPUSH [id number] PRN PAIN-PACU ORDER X 4 DOSES ONLY Ferrous Sulfate 325 mg 03/30/19 14:45 Feosol - PO DAILY DEANNA Heparin Sodium (Porcine) 5,000 unit 03/23/19 22:00 03/30/19 14:11 Heparin - SQ 5,000 unit TID DEANNA Administration Hydroxyzine Pamoate 25 mg 03/23/19 15:56 Vistaril - PO Q8H PRN FOR ITCHING Isosorbide Mononitrate 30 mg 03/25/19 10:00 03/30/19 09:37 Imdur - PO 30 mg DAILY DEANNA Administration Loratadine 10 mg 03/26/19 22:00 03/29/19 22:37 Claritin - PO 10 mg HS DEANNA Administration Melatonin 3 mg 03/27/19 22:00 03/29/19 22:37 Melatonin PO Not Given HS DEANNA Multivitamins/Minerals 1 each 03/24/19 10:00 03/30/19 09:37 Theragran-M PO 1 each DAILY DEANNA Administration Polyethylene Glycol 17 gm 03/27/19 14:00 03/30/19 09:38 Miralax (For Daily Use) - PO Not Given DAILY DEANNA Prochlorperazine Edisylate 5 mg 03/23/19 15:56 03/26/19 16:29 Compazine Injection - IM 5 mg Q4H PRN Administration NAUSEA AND/OR VOMITING Ropinirole HCl 0.5 mg 03/28/19 12:02 03/29/19 22:36 Requip - PO 03/30/19 22:01 0.5 mg HS DEANNA Administration Thiamine HCl 100 mg 03/24/19 10:00 03/30/19 09:38 Vitamin B1 - PO 100 mg DAILY DEANNA Administration ASSESSMENT/PLAN: Problem List - Problems (1) ESRD (end stage renal disease) on dialysis Assessment/Plan: Creatinine 8.0 on admission with acute shortness of breath and fatigue. new diagnosis. now getting dialysis via [facility] on MWF has home HD center set up for Thursday. appreciate renal consultation avoid nephrotoxic agents plan for AV fistula as outpt Code(s): N18.6 - END STAGE RENAL DISEASE; Z99.2 - DEPENDENCE ON RENAL DIALYSIS (2) Anemia due to chronic kidney disease Assessment/Plan: hgb 7.9. for one unit of prbc today. FeSO4/thiamine/MVI daily Code(s): N18.9 - CHRONIC KIDNEY DISEASE, UNSPECIFIED; D63.1 - ANEMIA IN CHRONIC KIDNEY DISEASE (3) COPD (chronic obstructive pulmonary disease) Assessment/Plan: duo nebs prn supplemental O2 as needed appreciated pulmonary consultation Code(s): J44.9 - CHRONIC OBSTRUCTIVE PULMONARY DISEASE, UNSPECIFIED (4) Dyspnea Assessment/Plan: resolved, tolerating room air. Code(s): R06.00 - DYSPNEA, UNSPECIFIED (5) Troponin I above reference range Code(s): R79.89 - OTHER SPECIFIED ABNORMAL FINDINGS OF BLOOD CHEMISTRY (6) Diabetes mellitus, insulin dependent (IDDM), uncontrolled Assessment/Plan: a1c stable glucose not elevated, continue to monitor. Code(s): E10.65 - TYPE 1 DIABETES MELLITUS WITH HYPERGLYCEMIA (7) Hyponatremia Assessment/Plan: improving with fluid restriction, but dropped again today will need outpatient follow up, closely Code(s): E87.1 - HYPO-OSMOLALITY AND HYPONATREMIA (8) Hyperphosphatemia Code(s): E83.39 - OTHER DISORDERS OF PHOSPHORUS METABOLISM (9) Hypocalcemia Assessment/Plan: Ca gluconate 1000mg IV given in ED Calcitriol 0.25mcg PO given in ED c/w Phoslo - 2 tabs w/ meals c/w Calcium 500mg/ Vit D 200u 2 tabs daily follow CMP, mag phos daily replete lytes PRN Code(s): E83.51 - HYPOCALCEMIA (10) CHF (congestive heart failure) Assessment/Plan: Strict I's and O's Daily weights Cardiology following TTE LV fx severly reduced, global hypokinesis for stress test tomorrow Code(s): I50.9 - HEART FAILURE, UNSPECIFIED (11) Coronary artery disease Assessment/Plan: CAD s/p CABG (4 vessel, 2014) asa 81 daily-given elevated troponins can not hold asa for proposed renal bx TTE noted above Code(s): I25.10 - ATHSCL HEART DISEASE OF [place] CORONARY ARTERY W/O ANG PCTRS Qualifiers: Coronary Disease-Associated Artery/Lesion type: [place] artery [place] vs. transplanted heart: [place] heart Associated angina: without angina Qualified Code(s): I25.10 - Atherosclerotic heart disease of [place] coronary artery without angina pectoris (12) Pyuria Assessment/Plan: UA with 3+ leuk, nitrate -, WBC 442 group b strep UTI, blood cultures negative treated with vancomycin with HD for one week Code(s): R82.81 - PYURIA (13) Rash and nonspecific skin eruption Assessment/Plan: recent cat scratch reported, bortonella negative extreme pruritus partly due to uremia, resolving seen by dermatology- Dr Watson punch biopsy done -will call office [phone] for results c/w calamine lotion to affected area and c/w atarax for puritus Code(s): R21 - RASH AND OTHER NONSPECIFIC SKIN ERUPTION (14) Prophylactic measure Assessment/Plan: FEN renal/diabetic diet monitor electrolytes no additional IVF needed at this time DVT heparin sq Dispo maintain on tele full code discharge planning-HD center being arranged for Thursday Code(s): Z29.9 - ENCOUNTER FOR PROPHYLACTIC MEASURES, UNSPECIFIED Visit type - Emergency Visit Emergency Visit: Yes ED Registration Date: 03/22/19 Care time: The patient presented to the Emergency Department on the above date and was hospitalized for further evaluation of their emergent condition. - New Patient This patient is new to me today: No - Critical Care Critical Care patient: No - Discharge Referral Referred to [facility] Med [facility] No
[2019-03-30] MEDS: MELATONIN 1 MG TABLET PO SCH ×2 (21:00→21:25)
[2019-03-30] MEDS: ALPRAZolam 0.25 MG TABLET PO PRN (21:25)
[2019-03-30] MEDS: LORATADINE 10 MG TABLET PO SCH (21:25)
[2019-03-30] MEDS: rOPINIRole HCL 0.25 MG TABLET PO SCH (21:25)
[2019-03-31] MEDS: HEPARIN NA (PORCINE) 5,000 UNITS/ML 1ML VIAL SQ SCH ×3 (05:59→21:14)
[2019-03-31 09:20] LABS: EOS % 1.6 % (0-4.5); HEMATOCRIT 28.1 % (32.4-45.2); HEMOGLOBIN 8.9 GM/dL (10.7-15.3); LYMPH % 14.6 % (8-40); MCH 29.8 pg (25.7-33.7); MCHC 31.8 g/dl (32.0-36.0); MEAN CELL VOLUME 93.7 fl (80-96); MEAN PLT VOLUME 8.7 fl (7.5-11.1); NEUT % 73.8 % (42.8-82.8); PLATELET COUNT 114 K/MM3 (134-434); RDW 21.9 % (11.6-15.6); WHITE BLOOD COUNT 10.1 K/mm3 (4.0-10.0)
[2019-03-31] MEDS: CALCIUM ACETATE 667 MG CAPSULE (FP) PO SCH ×3 (09:50→16:49)
[2019-03-31 10:13] LABS: ALBUMIN 2.8 g/dl (3.4-5.0); BILIRUBIN,TOTAL 1.5 mg/dL (0.2-1); BLOOD UREA NITROGEN 26.7 mg/dL (7-18); CALCIUM 8.5 mg/dL (8.5-10.1); CREATININE 3.3 mg/dL (0.55-1.3); MAGNESIUM 2.3 mg/dL (1.8-2.4); POTASSIUM 3.8 mmol/L (3.5-5.1); TOT PROT 5.2 g/dl (6.4-8.2)
[2019-03-31] MEDS: FERROUS SO4 325 MG TABLET (FP) PO SCH (11:11)
[2019-03-31] MEDS: MULTIVITAMINS THER W-MINERALS COMBO TABLET (FP) PO SCH (11:11)
[2019-03-31] MEDS: ASPIRIN COATED 81 MG TABLET.EC PO SCH (11:11)
[2019-03-31] MEDS: THIAMINE HCL 100 MG TABLET (FP) PO SCH (11:12)
[2019-03-31] MEDS: POLYETHYLENE GLYCOL 3350 119 GM BTL PO SCH (11:13)
[2019-03-31] MEDS: PRAMOXINE HCL/CALAMINE 177 ML LOTION TP SCH ×2 (11:14→21:14)
[2019-03-31] MEDS: BACITRACIN 15 GM TUBE TOPICAL OINTMENT TP SCH (11:15)
[2019-03-31] MEDS: ISOSORBIDE MONONITRATE 30 MG TAB.SR.24H (FP) PO SCH (11:25)
--- NOTE | 2019-03-31 12:43 | PN ---
Progress Note, Physician History of Present Illness: Pt seen and examined at bedside. She is awake and alert. She is going for a stress test today. - Current Medication List Current Medications: Active Medications Acetaminophen (Tylenol -) 650 mg PO Q6H PRN PRN Reason: Fever Or Pain Albuterol/Ipratropium (Duoneb -) 1 amp NEB Q6H PRN PRN Reason: SHORTNESS OF BREATH Last Admin: 03/30/19 16:38 Dose: 1 amp Alprazolam (Xanax -) 0.25 mg PO DAILY@2200 PRN PRN Reason: ANXIETY Last Admin: 03/30/19 21:25 Dose: 0.25 mg Aspirin (Ecotrin -) 81 mg PO DAILY [facility] Last Admin: 03/31/19 11:11 Dose: 81 mg Bacitracin (Bacitracin -) 1 applic TP DAILY [facility] Last Admin: 03/31/19 11:15 Dose: 1 applic Calcium Acetate (Phoslo -) 1,334 mg PO TIDCM [facility] Last Admin: 03/31/19 09:50 Dose: 1,334 mg Diphenhydramine/Calamine/Camphor (Caladryl -) 1 applic TP BID [facility] Last Admin: 03/31/19 11:14 Dose: 1 applic Fentanyl (Sublimaze Injection -) 25 mcg IVPUSH [id number] PRN PRN Reason: PAIN-PACU ORDER X 4 DOSES ONLY Ferrous Sulfate (Feosol -) 325 mg PO DAILY [facility] Last Admin: 03/31/19 11:11 Dose: 325 mg Heparin Sodium (Porcine) (Heparin -) 5,000 unit SQ TID [facility] Last Admin: 03/31/19 05:59 Dose: 5,000 unit Hydroxyzine Pamoate (Vistaril -) 25 mg PO Q8H PRN PRN Reason: FOR ITCHING Isosorbide Mononitrate (Imdur -) 30 mg PO DAILY [facility] Last Admin: 03/31/19 11:25 Dose: Not Given Loratadine (Claritin -) 10 mg PO HS [facility] Last Admin: 03/30/19 21:25 Dose: 10 mg Melatonin (Melatonin) 3 mg PO HS [facility] Last Admin: 03/30/19 21:25 Dose: 3 mg Multivitamins/Minerals (Theragran-M) 1 each PO DAILY [facility] Last Admin: 03/31/19 11:11 Dose: 1 each Polyethylene Glycol (Miralax (For Daily Use) -) 17 gm PO DAILY DEANNA Last Admin: 03/31/19 11:13 Dose: Not Given Prochlorperazine Edisylate (Compazine Injection -) 5 mg IM Q4H PRN PRN Reason: NAUSEA AND/OR VOMITING Last Admin: 03/26/19 16:29 Dose: 5 mg Thiamine HCl (Vitamin B1 -) 100 mg PO DAILY DEANNA Last Admin: 03/31/19 11:12 Dose: 100 mg - Objective Vital Signs: Vital Signs Temperature 97.2 F L 03/31/19 10:00 Pulse Rate 84 03/31/19 10:00 Respiratory Rate 18 03/31/19 10:00 Blood Pressure 106/53 L 03/31/19 10:00 O2 Sat by Pulse Oximetry (%) 95 03/30/19 21:00 Constitutional: Yes: Calm Eyes: Yes: Conjunctiva Clear HENT: Yes: Atraumatic Neck: Yes: Supple Cardiovascular: Yes: S1, S2 Respiratory: Yes: CTA Bilaterally Gastrointestinal: Yes: Soft Genitourinary: Yes: WNL Extremities: Yes: WNL Edema: Yes Edema: LLE: 1+, RLE: 1+ Neurological: Yes: Oriented Psychiatric: Yes: Oriented Labs: CBC, BMP 03/31/19 08:50 03/31/19 08:50 INR, PTT INR 1.39 (0.83-1.09) H 03/23/19 05:30 Assessment/Plan Current Medications Generic Name Dose Route Start Last Admin Trade Name Freq PRN Reason Stop Dose Admin Acetaminophen 650 mg 03/28/19 08:22 Tylenol - PO Q6H PRN Fever Or Pain Albuterol/Ipratropium 1 amp 03/23/19 17:50 03/30/19 16:38 Duoneb - NEB 1 amp Q6H PRN Administration SHORTNESS OF BREATH Alprazolam 0.25 mg 03/27/19 22:00 03/30/19 21:25 Xanax - PO 0.25 mg DAILY@2200 PRN Administration ANXIETY Aspirin 81 mg 03/25/19 10:00 03/31/19 11:11 Ecotrin - PO 81 mg DAILY DEANNA Administration Bacitracin 1 applic 03/24/19 10:00 03/31/19 11:15 Bacitracin - TP 1 applic DAILY DEANNA Administration Calcium Acetate 1,334 mg 03/23/19 17:30 03/31/19 09:50 Phoslo - PO 1,334 mg TIDCM DEANNA Administration Diphenhydramine/Calamine/Camphor 1 applic 03/23/19 22:00 03/31/19 11:14 Caladryl - TP 1 applic BID DEANNA Administration Fentanyl 25 mcg 03/23/19 15:56 Sublimaze Injection - IVPUSH [id number] PRN PAIN-PACU ORDER X 4 DOSES ONLY Ferrous Sulfate 325 mg 03/30/19 14:45 03/31/19 11:11 Feosol - PO 325 mg DAILY DEANNA Administration Heparin Sodium (Porcine) 5,000 unit 03/23/19 22:00 03/31/19 05:59 Heparin - SQ 5,000 unit TID DEANNA Administration Hydroxyzine Pamoate 25 mg 03/23/19 15:56 Vistaril - PO Q8H PRN FOR ITCHING Isosorbide Mononitrate 30 mg 03/25/19 10:00 03/31/19 11:25 Imdur - PO Not Given DAILY DEANNA Loratadine 10 mg 03/26/19 22:00 03/30/19 21:25 Claritin - PO 10 mg HS DEANNA Administration Melatonin 3 mg 03/27/19 22:00 03/30/19 21:25 Melatonin PO 3 mg HS DEANNA Administration Multivitamins/Minerals 1 each 03/24/19 10:00 03/31/19 11:11 Theragran-M PO 1 each DAILY DEANNA Administration Polyethylene Glycol 17 gm 03/27/19 14:00 03/31/19 11:13 Miralax (For Daily Use) - PO Not Given DAILY DEANNA Prochlorperazine Edisylate 5 mg 03/23/19 15:56 03/26/19 16:29 Compazine Injection - IM 5 mg Q4H PRN Administration NAUSEA AND/OR VOMITING Thiamine HCl 100 mg 03/24/19 10:00 03/31/19 11:12 Vitamin B1 - PO 100 mg DAILY DEANNA Administration Impression 1. CKD with YVES 2. CHF 3. DM 4. HTN 5. hyperlipidemia 6. nephrotic range proteinuria 7. CAD 8. elevated troponin 9. hyponatremia 10. esrd Plan - follow stress test - next HD tomorrow - fluid restriction - rheum eval for low compliment pending - unable to do renal biopsy as she is on aspirin - renal diet
[2019-03-31] MEDS ORDERED: REGADENOSON 0.4 MG/5 ML PRE-FILLED SYRINGE IVPUSH ONE ×2 (13:48→14:00)
--- NOTE | 2019-03-31 16:14 | PN ---
Physical Exam: SUBJECTIVE: Patient seen and examined OBJECTIVE: No PCP, a pcp appt made for her for post hospital follow up: date: April 05 time: 11:00a.m bring: insurance card, discharge paperwork Patient is a 58 year old female with a significant past medical history of diabetic retinopathy, DM, CAD s/p CABG (4 vessel, 2014) and CHF. She presents to the ED for worsening shortness of breath and malaise and found to have elevated creatinine of 8 and started on dialysis. She also reported a rash that started 2 weeks ago after being scratched by her cat. Rash was reported to be priutirc and spreading. Lexiscan with moderate ischemia and LVEF 14%. insulation professional called and made aware, copy of report sent to Dr Castro. Awaiting further plans per cardiology. Vital Signs Period Temp Pulse Resp BP Sys/Horowitz Pulse Ox Last 24 Hr 97.2 F-97.8 F 60-96 18-20 90-138/40-99 95-95 GENERAL: The patient is awake, alert, and fully oriented, in no acute distress. HEAD: Normal with no signs of trauma. EYES: PERRL, extraocular movements intact, sclera anicteric, conjunctiva clear. No ptosis. ENT: Ears normal, nares patent, oropharynx clear without exudates, moist mucous membranes. NECK: Trachea midline, full range of motion, supple. LUNGS: Breath sounds equal, clear to auscultation bilaterally, no wheezes HEART: Regular rate and rhythm ABDOMEN: Soft, nontender, nondistended, normoactive bowel sounds, no guarding EXTREMITIES: +2 tight pitting edema equally bilaterally. NEUROLOGICAL: Normal speech, gait not observed. PSYCH: Normal mood, normal affect. Laboratory Results - last 24 hr 03/31/19 03/31/19 03/31/19 08:50 08:50 12:10 WBC 10.1 H RBC 3.00 L Hgb 8.9 L Hct 28.1 L MCV 93.7 MCH 29.8 MCHC 31.8 L RDW 21.9 H Plt Count 114 L MPV 8.7 Absolute Neuts (auto) 7.4 Neutrophils % 73.8 Lymphocytes % 14.6 D Monocytes % 9.0 Eosinophils % 1.6 Basophils % 1.0 Nucleated RBC % 0 Sodium 134 L Potassium 3.8 Chloride 97 L Carbon Dioxide 28 Anion Gap 10 BUN 26.7 H Creatinine 3.3 H Est GFR (CKD-EPI)AfAm 16.98 Est GFR (CKD-EPI)NonAf 14.65 POC Glucometer 122 Random Glucose 135 H Calcium 8.5 Magnesium 2.3 Total Bilirubin 1.5 H AST 33 ALT 29 Alkaline Phosphatase 133 H Total Protein 5.2 L Albumin 2.8 L Active Medications Generic Name Dose Route Start Last Admin Trade Name Freq PRN Reason Stop Dose Admin Acetaminophen 650 mg 03/28/19 08:22 Tylenol - PO Q6H PRN Fever Or Pain Albuterol/Ipratropium 1 amp 03/23/19 17:50 03/30/19 16:38 Duoneb - NEB 1 amp Q6H PRN Administration SHORTNESS OF BREATH Alprazolam 0.25 mg 03/27/19 22:00 03/30/19 21:25 Xanax - PO 0.25 mg DAILY@2200 PRN Administration ANXIETY Aspirin 81 mg 03/25/19 10:00 03/31/19 11:11 Ecotrin - PO 81 mg DAILY DEANNA Administration Bacitracin 1 applic 03/24/19 10:00 03/31/19 11:15 Bacitracin - TP 1 applic DAILY DEANNA Administration Calcium Acetate 1,334 mg 03/23/19 17:30 03/31/19 09:50 Phoslo - PO 1,334 mg TIDCM DEANNA Administration Diphenhydramine/Calamine/Camphor 1 applic 03/23/19 22:00 03/31/19 11:14 Caladryl - TP 1 applic BID DEANNA Administration Epoetin Gabriel 3,000 unit 04/01/19 12:43 Epogen - IVPUSH 04/01/19 12:44 ONCE ONE Fentanyl 25 mcg 03/23/19 15:56 Sublimaze Injection - IVPUSH [id number] PRN PAIN-PACU ORDER X 4 DOSES ONLY Ferrous Sulfate 325 mg 03/30/19 14:45 03/31/19 11:11 Feosol - PO 325 mg DAILY DEANNA Administration Heparin Sodium (Porcine) 5,000 unit 03/23/19 22:00 03/31/19 05:59 Heparin - SQ 5,000 unit TID DEANNA Administration Hydroxyzine Pamoate 25 mg 03/23/19 15:56 Vistaril - PO Q8H PRN FOR ITCHING Sodium Chloride 250 mls @ 3,000 mls/hr 03/31/19 12:43 Normal Saline - IV 04/01/19 12:43 PRN PRN Hypotension during Dialysis Isosorbide Mononitrate 30 mg 03/25/19 10:00 03/31/19 11:25 Imdur - PO Not Given DAILY DEANNA Loratadine 10 mg 03/26/19 22:00 03/30/19 21:25 Claritin - PO 10 mg HS DEANNA Administration Melatonin 3 mg 03/27/19 22:00 03/30/19 21:25 Melatonin PO 3 mg HS DEANNA Administration Multivitamins/Minerals 1 each 03/24/19 10:00 03/31/19 11:11 Theragran-M PO 1 each DAILY DEANNA Administration Polyethylene Glycol 17 gm 03/27/19 14:00 03/31/19 11:13 Miralax (For Daily Use) - PO Not Given DAILY DEANNA Prochlorperazine Edisylate 5 mg 03/23/19 15:56 03/26/19 16:29 Compazine Injection - IM 5 mg Q4H PRN Administration NAUSEA AND/OR VOMITING Thiamine HCl 100 mg 03/24/19 10:00 03/31/19 11:12 Vitamin B1 - PO 100 mg DAILY DEANNA Administration ASSESSMENT/PLAN: Problem List - Problems (1) ESRD (end stage renal disease) on dialysis Assessment/Plan: Creatinine 8.0 on admission with acute shortness of breath and fatigue. new diagnosis. now getting dialysis via right [facility] on MWF has home HD center set up for Thursday, however, her stress test with moderate ischemia and lvef of 13%. further plans per cardiology, may need transfer to mechanical laboratory technician appreciate renal consultation avoid nephrotoxic agents plan for AV fistula as outpt Code(s): N18.6 - END STAGE RENAL DISEASE; Z99.2 - DEPENDENCE ON RENAL DIALYSIS (2) Anemia due to chronic kidney disease Assessment/Plan: s/p 1 unit of prbc today FeSO4/thiamine/MVI daily Code(s): N18.9 - CHRONIC KIDNEY DISEASE, UNSPECIFIED; D63.1 - ANEMIA IN CHRONIC KIDNEY DISEASE (3) COPD (chronic obstructive pulmonary disease) Assessment/Plan: duo nebs prn supplemental O2 as needed appreciated pulmonary consultation Code(s): J44.9 - CHRONIC OBSTRUCTIVE PULMONARY DISEASE, UNSPECIFIED (4) Dyspnea Assessment/Plan: resolved, tolerating room air. Code(s): R06.00 - DYSPNEA, UNSPECIFIED (5) Troponin I above reference range Code(s): R79.89 - OTHER SPECIFIED ABNORMAL FINDINGS OF BLOOD CHEMISTRY (6) Diabetes mellitus, insulin dependent (IDDM), uncontrolled Assessment/Plan: a1c stable glucose not elevated, continue to monitor. Code(s): E10.65 - TYPE 1 DIABETES MELLITUS WITH HYPERGLYCEMIA (7) Hyponatremia Assessment/Plan: improving with fluid restriction, but dropped again today Code(s): E87.1 - HYPO-OSMOLALITY AND HYPONATREMIA (8) Hyperphosphatemia Code(s): E83.39 - OTHER DISORDERS OF PHOSPHORUS METABOLISM (9) Hypocalcemia Assessment/Plan: Ca gluconate 1000mg IV given in ED Calcitriol 0.25mcg PO given in ED c/w Phoslo - 2 tabs w/ meals c/w Calcium 500mg/ Vit D 200u 2 tabs daily follow CMP, mag phos daily replete lytes PRN Code(s): E83.51 - HYPOCALCEMIA (10) CHF (congestive heart failure) Assessment/Plan: Strict I's and O's Daily weights Cardiology following TTE LV fx severly reduced, global hypokinesis had stress test which shows moderate ischemia and severely reduced lvef Code(s): I50.9 - HEART FAILURE, UNSPECIFIED (11) Coronary artery disease Assessment/Plan: CAD s/p CABG (4 vessel, 2014) asa 81 daily-given elevated troponins can not hold asa for proposed renal bx TTE noted above Code(s): I25.10 - ATHSCL HEART DISEASE OF [place] CORONARY ARTERY W/O ANG PCTRS Qualifiers: Coronary Disease-Associated Artery/Lesion type: [place] artery [place] vs. transplanted heart: [place] heart Associated angina: without angina Qualified Code(s): I25.10 - Atherosclerotic heart disease of [place] coronary artery without angina pectoris (12) Pyuria Assessment/Plan: UA with 3+ leuk, nitrate -, WBC 442 group b strep UTI, blood cultures negative treated with vancomycin with HD for one week Code(s): R82.81 - PYURIA (13) Rash and nonspecific skin eruption Assessment/Plan: recent cat scratch reported, bortonella negative extreme pruritus partly due to uremia, resolving seen by dermatology- Dr Watson and biopsy done. called office and provided my fax no to fax over report once available. c/w calamine lotion to affected area and c/w atarax for puritus Code(s): R21 - RASH AND OTHER NONSPECIFIC SKIN ERUPTION (14) Prophylactic measure Assessment/Plan: FEN renal/diabetic diet monitor electrolytes no additional IVF needed at this time DVT heparin sq Dispo maintain on tele full code Code(s): Z29.9 - ENCOUNTER FOR PROPHYLACTIC MEASURES, UNSPECIFIED Visit type - Emergency Visit Emergency Visit: Yes ED Registration Date: 03/22/19 Care time: The patient presented to the Emergency Department on the above date and was hospitalized for further evaluation of their emergent condition. - New Patient This patient is new to me today: No - Critical Care Critical Care patient: No - Discharge Referral Referred to [facility] No
[2019-03-31] MEDS ORDERED: LOPERAMIDE HCL 2 MG CAPSULE PO ONE (18:17)
--- NOTE | 2019-03-31 18:19 | PN ---
Progress Note (short form) - Note Progress Note: No chest pain or discomfort either at rest or with exertion, no exertional dyspnea, paroxysmal nocturnal dyspnea or orthopnea. No history of palpitations , lightheadedness, dizziness presyncope or syncope. Awaiting Lexiscan myocardial perfusion study. Active Medications Active Medications Acetaminophen (Tylenol -) 650 mg PO Q6H PRN PRN Reason: Fever Or Pain Albuterol/Ipratropium (Duoneb -) 1 amp NEB Q6H PRN PRN Reason: SHORTNESS OF BREATH Last Admin: 03/30/19 16:38 Dose: 1 amp Alprazolam (Xanax -) 0.25 mg PO DAILY@2200 PRN PRN Reason: ANXIETY Last Admin: 03/30/19 21:25 Dose: 0.25 mg Aspirin (Ecotrin -) 81 mg PO DAILY [facility] Last Admin: 03/31/19 11:11 Dose: 81 mg Bacitracin (Bacitracin -) 1 applic TP DAILY [facility] Last Admin: 03/31/19 11:15 Dose: 1 applic Calcium Acetate (Phoslo -) 1,334 mg PO TIDCM [facility] Last Admin: 03/31/19 16:49 Dose: 1,334 mg Diphenhydramine/Calamine/Camphor (Caladryl -) 1 applic TP BID [facility] Last Admin: 03/31/19 11:14 Dose: 1 applic Epoetin Gabriel (Epogen -) 3,000 unit IVPUSH ONCE ONE Stop: 04/01/19 12:44 Fentanyl (Sublimaze Injection -) 25 mcg IVPUSH [id number] PRN PRN Reason: PAIN-PACU ORDER X 4 DOSES ONLY Ferrous Sulfate (Feosol -) 325 mg PO DAILY [facility] Last Admin: 03/31/19 11:11 Dose: 325 mg Heparin Sodium (Porcine) (Heparin -) 5,000 unit SQ TID [facility] Last Admin: 03/31/19 16:49 Dose: 5,000 unit Hydroxyzine Pamoate (Vistaril -) 25 mg PO Q8H PRN PRN Reason: FOR ITCHING Sodium Chloride (Normal Saline -) 250 mls @ 3,000 mls/hr IV PRN PRN PRN Reason: Hypotension during Dialysis Stop: 04/01/19 12:43 Isosorbide Mononitrate (Imdur -) 30 mg PO DAILY [facility] Last Admin: 03/31/19 11:25 Dose: Not Given Loperamide HCl (Imodium -) 2 mg PO ONCE ONE Stop: 03/31/19 18:18 Loratadine (Claritin -) 10 mg PO HS [facility] Last Admin: 03/30/19 21:25 Dose: 10 mg Melatonin (Melatonin) 3 mg PO HS [facility] Last Admin: 03/30/19 21:25 Dose: 3 mg Multivitamins/Minerals (Theragran-M) 1 each PO DAILY [facility] Last Admin: 03/31/19 11:11 Dose: 1 each Polyethylene Glycol (Miralax (For Daily Use) -) 17 gm PO DAILY [facility] Last Admin: 03/31/19 11:13 Dose: Not Given Prochlorperazine Edisylate (Compazine Injection -) 5 mg IM Q4H PRN PRN Reason: NAUSEA AND/OR VOMITING Last Admin: 03/26/19 16:29 Dose: 5 mg Thiamine HCl (Vitamin B1 -) 100 mg PO DAILY [facility] Last Admin: 03/31/19 11:12 Dose: 100 mg 58-year-old female was in no acute distress, pallor 1+, no cyanosis, clubbing or jaundice. Last Vital Signs Temp Pulse Resp BP Pulse Ox 97.2 F L 84 18 106/53 L 95 03/31/19 10:00 03/31/19 10:00 03/31/19 10:00 03/31/19 10:00 03/31/19 09:00 NECK: Supple, no jugular venous distention, +ve hepatojugular reflux , carotids were 2+, upstrokes were normal, no bruits were heard. HEART: PMI is the fifth intercostal space, no heaves or thrills, S1 and S2 were normal, grade II/ decrescendo systolic murmur was heard at the apex and left sternal border. No diastolic murmur or gallops were heard.. LUNGS: Decreased breath sounds at the bases. No extraneous sounds were heard. ABDOMEN:, Soft, nontender, no hepatosplenomegaly, no palpable masses. EXTREMITIES: No calf tenderness 2+ bilateral lower extremity dependent edema. CBC, BMP 03/31/19 08:50 03/31/19 08:50 IMRESSIONS: 1. Congestive heart failure NYHA II 2. Elevated troponin levels, etiology: a). Related to acute renal failure. b): Congestive heart failure. c). Ischemic heart disease/NSTEMI 3. Diabetes mellitus. 4. Coronary artery disease,status post myocardial infarction, status post status post CABG. 5. History of severe LV systolic dysfunction. 6. Poor compliance. 7. Hypercholesterolemia. 8. Anemia. 9. Poor compliance. RECOMMENDATIONS: 1. Continue therapy. 2. Lexiscan myocardial perfusion study is pending. 3. Risk modifications. 4. Increase ambulation. 5. Further suggestions will depend on the results of the stress test. Prognosis: Guarded.
[2019-03-31] MEDS: ALBUTEROL SO4 2.5/IPRATROPIUM 0.5 INH SOL 3 ML VIAL.NEB. NEB PRN (20:29)
[2019-03-31] MEDS: MELATONIN 1 MG TABLET PO SCH (21:13)
[2019-03-31] MEDS: LORATADINE 10 MG TABLET PO SCH (21:14)
[2019-03-31] MEDS: ALPRAZolam 0.25 MG TABLET PO PRN (21:14)
[2019-03-31] MEDS: rOPINIRole HCL 0.5 MG TABLET PO SCH (23:31)
[2019-04-01] MEDS: HEPARIN NA (PORCINE) 5,000 UNITS/ML 1ML VIAL SQ SCH ×3 (06:04→21:50)
[2019-04-01] MEDS ORDERED: SODIUM CHLORIDE 250 ML IV PRN ×3 (07:00→09:12)
[2019-04-01] MEDS ORDERED: EPOETIN ALFA 3,000 UNIT/1 ML ML IVPUSH ONE (08:00)
[2019-04-01] MEDS ORDERED: PT OWN MED DRAWER 7, Y5N ONE ×2 (08:41→21:42)
[2019-04-01] MEDS: CALCIUM ACETATE 667 MG CAPSULE (FP) PO SCH ×3 (08:44→17:20)
[2019-04-01] MEDS: MULTIVITAMINS THER W-MINERALS COMBO TABLET (FP) PO SCH (11:14)
[2019-04-01] MEDS: ISOSORBIDE MONONITRATE 30 MG TAB.SR.24H (FP) PO SCH (11:15)
[2019-04-01] MEDS: ASPIRIN COATED 81 MG TABLET.EC PO SCH (11:16)
[2019-04-01] MEDS: BACITRACIN 15 GM TUBE TOPICAL OINTMENT TP SCH (11:16)
[2019-04-01] MEDS: THIAMINE HCL 100 MG TABLET (FP) PO SCH (11:17)
[2019-04-01] MEDS: PRAMOXINE HCL/CALAMINE 177 ML LOTION TP SCH ×2 (11:18→21:50)
[2019-04-01] MEDS: POLYETHYLENE GLYCOL 3350 119 GM BTL PO SCH (11:19)
--- NOTE | 2019-04-01 11:20 | PN ---
Progress Note, Physician History of Present Illness: pulmonary alert,sitting up in bed,comfortable,dysppnea improved.+ stress test to have cardiac cath at [facility] next week - Current Medication List Current Medications: Active Medications Acetaminophen (Tylenol -) 650 mg PO Q6H PRN PRN Reason: Fever Or Pain Albuterol/Ipratropium (Duoneb -) 1 amp NEB Q6H PRN PRN Reason: SHORTNESS OF BREATH Last Admin: 03/31/19 20:29 Dose: 1 amp Alprazolam (Xanax -) 0.25 mg PO DAILY@2200 PRN PRN Reason: ANXIETY Last Admin: 03/31/19 21:14 Dose: 0.25 mg Aspirin (Ecotrin -) 81 mg PO DAILY [facility] Last Admin: 03/31/19 11:11 Dose: 81 mg Bacitracin (Bacitracin -) 1 applic TP DAILY [facility] Last Admin: 03/31/19 11:15 Dose: 1 applic Calcium Acetate (Phoslo -) 1,334 mg PO TIDCM [facility] Last Admin: 04/01/19 08:44 Dose: 1,334 mg Diphenhydramine/Calamine/Camphor (Caladryl -) 1 applic TP BID [facility] Last Admin: 03/31/19 21:14 Dose: 1 applic Fentanyl (Sublimaze Injection -) 25 mcg IVPUSH [id number] PRN PRN Reason: PAIN-PACU ORDER X 4 DOSES ONLY Ferrous Sulfate (Feosol -) 325 mg PO DAILY [facility] Last Admin: 03/31/19 11:11 Dose: 325 mg Heparin Sodium (Porcine) (Heparin -) 5,000 unit SQ TID [facility] Last Admin: 04/01/19 06:04 Dose: 5,000 unit Hydroxyzine Pamoate (Vistaril -) 25 mg PO Q8H PRN PRN Reason: FOR ITCHING Sodium Chloride (Normal Saline -) 250 mls @ 3,000 mls/hr IV PRN PRN PRN Reason: Hypotension during Dialysis Stop: 04/02/19 06:59 Sodium Chloride (Normal Saline -) 250 mls @ 3,000 mls/hr IV PRN PRN PRN Reason: Hypotension during Dialysis Stop: 04/02/19 09:11 Sodium Chloride (Normal Saline -) 250 mls @ 3,000 mls/hr IV PRN PRN PRN Reason: Hypotension during Dialysis Stop: 04/02/19 09:13 Isosorbide Mononitrate (Imdur -) 30 mg PO DAILY [facility] Last Admin: 03/31/19 11:25 Dose: Not Given Loratadine (Claritin -) 10 mg PO HS [facility] Last Admin: 03/31/19 21:14 Dose: 10 mg Melatonin (Melatonin) 3 mg PO HS [facility] Last Admin: 03/31/19 21:13 Dose: Not Given Multivitamins/Minerals (Theragran-M) 1 each PO DAILY [facility] Last Admin: 03/31/19 11:11 Dose: 1 each Polyethylene Glycol (Miralax (For Daily Use) -) 17 gm PO DAILY [facility] Last Admin: 03/31/19 11:13 Dose: Not Given Prochlorperazine Edisylate (Compazine Injection -) 5 mg IM Q4H PRN PRN Reason: NAUSEA AND/OR VOMITING Last Admin: 03/26/19 16:29 Dose: 5 mg Ropinirole HCl (Requip -) 0.5 mg PO HS [facility] Stop: 04/03/19 23:04 Last Admin: 03/31/19 23:31 Dose: 0.5 mg Thiamine HCl (Vitamin B1 -) 100 mg PO DAILY [facility] Last Admin: 03/31/19 11:12 Dose: 100 mg - Objective Vital Signs: Vital Signs Temperature 97.8 F 04/01/19 06:00 Pulse Rate 78 04/01/19 10:30 Respiratory Rate 18 04/01/19 10:30 Blood Pressure 158/80 04/01/19 10:30 O2 Sat by Pulse Oximetry (%) 99 04/01/19 09:00 Constitutional: Yes: Well Nourished, Calm Eyes: Yes: WNL HENT: Yes: WNL Neck: Yes: WNL Cardiovascular: Yes: Regular Rate and Rhythm, S1, S2 Respiratory: Yes: Rales (bibasailr rales) Gastrointestinal: Yes: Normal Bowel Sounds, Soft Extremities: Yes: WNL Edema: Yes Labs: Problem List - Problems (1) Uremic pruritus Code(s): L29.9 - PRURITUS, UNSPECIFIED (2) COPD (chronic obstructive pulmonary disease) Code(s): J44.9 - CHRONIC OBSTRUCTIVE PULMONARY DISEASE, UNSPECIFIED (3) Dyspnea Code(s): R06.00 - DYSPNEA, UNSPECIFIED (4) Jxsit-ps-grmfiox kidney injury Code(s): N17.9 - ACUTE KIDNEY FAILURE, UNSPECIFIED; N18.9 - CHRONIC KIDNEY DISEASE, UNSPECIFIED (5) CHF (congestive heart failure) Code(s): I50.9 - HEART FAILURE, UNSPECIFIED (6) S/P CABG (coronary artery bypass graft) Code(s): Z95.1 - PRESENCE OF AORTOCORONARY BYPASS GRAFT (7) Troponin I above reference range Code(s): R79.89 - OTHER SPECIFIED ABNORMAL FINDINGS OF BLOOD CHEMISTRY Assessment/Plan IMP DYSPNEA IMPROVED ACUTE ON CHRONIC CHF IMPROVED ACUTE ON CHRONIC KIDNEY FAILURE SEVERE LV SYSTOLIC DYSFUNCTION + MYOCARDIAL PERFUSION SCAN DM COPD NOT IN ACUTE EXACERBATION ASHD S/P CABG + TROPONIN H/O TOBACCO USE LIKELY UREMIC PRURITIS PULMONARY HTN SEVERE MR PLAN HD PER RENAL O2 MONITOR LYTES,RENAL FUNCTION F/U CHEST X-RAYS CARDIAC CATH NEXT WEEK DR CHUA Problem List - Problems (1) Uremic pruritus Code(s): L29.9 - PRURITUS, UNSPECIFIED (2) COPD (chronic obstructive pulmonary disease) Code(s): J44.9 - CHRONIC OBSTRUCTIVE PULMONARY DISEASE, UNSPECIFIED (3) Dyspnea Code(s): R06.00 - DYSPNEA, UNSPECIFIED (4) Hahya-me-qhpfwog kidney injury Code(s): N17.9 - ACUTE KIDNEY FAILURE, UNSPECIFIED; N18.9 - CHRONIC KIDNEY DISEASE, UNSPECIFIED (5) CHF (congestive heart failure) Code(s): I50.9 - HEART FAILURE, UNSPECIFIED (6) S/P CABG (coronary artery bypass graft) Code(s): Z95.1 - PRESENCE OF AORTOCORONARY BYPASS GRAFT (7) Troponin I above reference range Code(s): R79.89 - OTHER SPECIFIED ABNORMAL FINDINGS OF BLOOD CHEMISTRY
[2019-04-01] MEDS: FERROUS SO4 325 MG TABLET (FP) PO SCH (11:21)
--- NOTE | 2019-04-01 15:01 | PN ---
Physical Exam: SUBJECTIVE: Patient seen and examined at the bedside, receiving dialysis. Patient has been informed that she had a positive stress test and will need to be transferred to [facility]. Arrangements for transfer to be made by her reservation agent (Dr. Fernández). OBJECTIVE: Patient is a 58 year old female with a significant past medical history of diabetic retinopathy, DM, CAD s/p CABG (4 , 2014) and CHF. She presents to the ED for worsening shortness of breath and malaise and found to have elevated creatinine of 8 and started on dialysis. She also reported a rash that started 2 weeks ago after being scratched by her cat. Rash was reported to be priutirc and spreading. She had a biopsy done, results still pending per dermatology office. Patient underwent a stress test with the following results: Lexiscan with moderate ischemia and LVEF 14%. reservation agent called and made aware, copy of report sent to Dr Castro. per dr Fernández, patient will need to be transferred to cardiac clinical laboratory scientist, likely late Thursday or early thursday after she receives dialysis. Vital Signs Period Temp Pulse Resp BP Sys/Horowitz Pulse Ox Last 24 Hr 97.3 F-98.1 F 76-99 16-18 75-191/33-80 99-99 GENERAL: The patient is awake, alert, and fully oriented, in no acute distress. HEAD: Normal with no signs of trauma. EYES: PERRL, extraocular movements intact, sclera anicteric, conjunctiva clear. No ptosis. ENT: Ears normal, nares patent, oropharynx clear without exudates, moist mucous membranes. NECK: Trachea midline, full range of motion, supple. LUNGS: Breath sounds equal, clear to auscultation bilaterally, no wheezes HEART: Regular rate and rhythm ABDOMEN: Soft, nontender, nondistended, normoactive bowel sounds, no guarding EXTREMITIES: +2 tight pitting edema equally bilaterally. NEUROLOGICAL: Normal speech, gait not observed. PSYCH: Normal mood, normal affect. Active Medications Generic Name Dose Route Start Last Admin Trade Name Freq PRN Reason Stop Dose Admin Acetaminophen 650 mg 03/28/19 08:22 Tylenol - PO Q6H PRN Fever Or Pain Albuterol/Ipratropium 1 amp 03/23/19 17:50 03/31/19 20:29 Duoneb - NEB 1 amp Q6H PRN Administration SHORTNESS OF BREATH Alprazolam 0.25 mg 03/27/19 22:00 03/31/19 21:14 Xanax - PO 0.25 mg DAILY@2200 PRN Administration ANXIETY Aspirin 81 mg 03/25/19 10:00 04/01/19 11:16 Ecotrin - PO 81 mg DAILY [facility] Administration Bacitracin 1 applic 03/24/19 10:00 04/01/19 11:16 Bacitracin - TP 1 applic DAILY [facility] Administration Calcium Acetate 1,334 mg 03/23/19 17:30 04/01/19 11:17 Phoslo - PO 1,334 mg TIDCM [facility] Administration Diphenhydramine/Calamine/Camphor 1 applic 03/23/19 22:00 04/01/19 11:18 Caladryl - TP 1 applic BID [facility] Administration Fentanyl 25 mcg 03/23/19 15:56 Sublimaze Injection - IVPUSH [id number] PRN PAIN-PACU ORDER X 4 DOSES ONLY Ferrous Sulfate 325 mg 03/30/19 14:45 04/01/19 11:21 Feosol - PO Not Given DAILY [facility] Heparin Sodium (Porcine) 5,000 unit 03/23/19 22:00 04/01/19 14:43 Heparin - SQ 5,000 unit TID [facility] Administration Hydroxyzine Pamoate 25 mg 03/23/19 15:56 Vistaril - PO Q8H PRN FOR ITCHING Sodium Chloride 250 mls @ 3,000 mls/hr 04/01/19 07:00 Normal Saline - IV 04/02/19 06:59 PRN PRN Hypotension during Dialysis Sodium Chloride 250 mls @ 3,000 mls/hr 04/01/19 09:11 Normal Saline - IV 04/02/19 09:11 PRN PRN Hypotension during Dialysis Sodium Chloride 250 mls @ 3,000 mls/hr 04/01/19 09:12 Normal Saline - IV 04/02/19 09:13 PRN PRN Hypotension during Dialysis Isosorbide Mononitrate 30 mg 03/25/19 10:00 04/01/19 11:15 Imdur - PO 30 mg DAILY [facility] Administration Loratadine 10 mg 03/26/19 22:00 03/31/19 21:14 Claritin - PO 10 mg HS [facility] Administration Melatonin 3 mg 03/27/19 22:00 03/31/19 21:13 Melatonin PO Not Given HS [facility] Multivitamins/Minerals 1 each 03/24/19 10:00 04/01/19 11:14 Theragran-M PO 1 each DAILY [facility] Administration Polyethylene Glycol 17 gm 03/27/19 14:00 04/01/19 11:19 Miralax (For Daily Use) - PO Not Given DAILY [facility] Prochlorperazine Edisylate 5 mg 03/23/19 15:56 03/26/19 16:29 Compazine Injection - IM 5 mg Q4H PRN Administration NAUSEA AND/OR VOMITING Ropinirole HCl 0.5 mg 03/31/19 23:05 03/31/19 23:31 Requip - PO 04/03/19 23:04 0.5 mg HS [facility] Administration Thiamine HCl 100 mg 03/24/19 10:00 04/01/19 11:17 Vitamin B1 - PO 100 mg DAILY [facility] Administration ASSESSMENT/PLAN: Problem List - Problems (1) ESRD (end stage renal disease) on dialysis Assessment/Plan: tolerated dialysis today. vitals stable. will need dialysis prior to transfer to clinical laboratory scientist on Thursday or Thursday monitor vitals renal following Code(s): N18.6 - END STAGE RENAL DISEASE; Z99.2 - DEPENDENCE ON RENAL DIALYSIS (2) Anemia due to chronic kidney disease Assessment/Plan: s/p 1 unit of prbc. monitor cbc daily and maintain hmg 8> for cardiac disease Code(s): N18.9 - CHRONIC KIDNEY DISEASE, UNSPECIFIED; D63.1 - ANEMIA IN CHRONIC KIDNEY DISEASE (3) COPD (chronic obstructive pulmonary disease) Assessment/Plan: duo nebs prn supplemental O2 as needed appreciated pulmonary consultation Code(s): J44.9 - CHRONIC OBSTRUCTIVE PULMONARY DISEASE, UNSPECIFIED (4) Dyspnea Assessment/Plan: resolved, tolerating room air. Code(s): R06.00 - DYSPNEA, UNSPECIFIED (5) Troponin I above reference range Code(s): R79.89 - OTHER SPECIFIED ABNORMAL FINDINGS OF BLOOD CHEMISTRY (6) Diabetes mellitus, insulin dependent (IDDM), uncontrolled Assessment/Plan: a1c stable glucose not elevated, continue to monitor. Code(s): E10.65 - TYPE 1 DIABETES MELLITUS WITH HYPERGLYCEMIA (7) Hyponatremia Assessment/Plan: improving with fluid restriction, monitor electrolytes daily Code(s): E87.1 - HYPO-OSMOLALITY AND HYPONATREMIA (8) Hyperphosphatemia Code(s): E83.39 - OTHER DISORDERS OF PHOSPHORUS METABOLISM (9) Hypocalcemia Assessment/Plan: monitor with daily labs Code(s): E83.51 - HYPOCALCEMIA (10) CHF (congestive heart failure) Assessment/Plan: TTE LV fx severly reduced, global hypokinesis had stress test which shows moderate ischemia and severely reduced lvef, for transfer to cardiac cath labs being arranged. Code(s): I50.9 - HEART FAILURE, UNSPECIFIED (11) Coronary artery disease Assessment/Plan: CAD s/p CABG (4 vessel, 2014) asa 81 daily-given elevated troponins can not hold asa for proposed renal bx TTE noted above, lexiscan as noted above Code(s): I25.10 - ATHSCL HEART DISEASE OF [place] CORONARY ARTERY W/O ANG PCTRS Qualifiers: Coronary Disease-Associated Artery/Lesion type: [place] artery [place] vs. transplanted heart: [place] heart Associated angina: without angina Qualified Code(s): I25.10 - Atherosclerotic heart disease of [place] coronary artery without angina pectoris (12) Pyuria Assessment/Plan: UA with 3+ leuk, nitrate -, WBC 442 group b strep UTI, blood cultures negative treated with vancomycin with HD for one week Code(s): R82.81 - PYURIA (13) Rash and nonspecific skin eruption Assessment/Plan: recent cat scratch reported, bortonella negative extreme pruritus partly due to uremia, resolving seen by dermatology- Dr Watson and biopsy done. called office and provided my fax no to fax over report once available. c/w calamine lotion to affected area and c/w atarax for puritus Code(s): R21 - RASH AND OTHER NONSPECIFIC SKIN ERUPTION (14) Prophylactic measure Assessment/Plan: FEN renal/diabetic diet monitor electrolytes no additional IVF needed at this time DVT heparin sq Dispo maintain on tele full code Code(s): Z29.9 - ENCOUNTER FOR PROPHYLACTIC MEASURES, UNSPECIFIED Visit type - Emergency Visit Emergency Visit: Yes ED Registration Date: 03/22/19 Care time: The patient presented to the Emergency Department on the above date and was hospitalized for further evaluation of their emergent condition. - New Patient This patient is new to me today: No - Critical Care Critical Care patient: No - Discharge Referral Referred to [facility] No
--- NOTE | 2019-04-01 15:09 | PN ---
Progress Note (short form) - Note Progress Note: No chest pain or discomfort either at rest or with exertion, no exertional dyspnea, paroxysmal nocturnal dyspnea or orthopnea. No history of palpitations , lightheadedness, dizziness presyncope or syncope. Lexiscan revealedand inferolateral wall infarct with марина-infarct ischemia. Severe LV systolic dysfunction and EF was reported to be 13%.echo had revealed severe mitral and tricuspid regurgitation with severe left ventricular systolic dysfunction. Detailed discussion with patient regarding further evaluation and management and was advised that she should be transferred to a tertiary care center for a cardiac catheterizationand she most likely is a candidate for ICD insertion ( primary prophylaxis). Patient is agreeable to this suggestion and arrangements are to be made for transfer to [facility] Active Medications Generic Name Dose Route Start Last Admin Trade Name Freq PRN Reason Stop Dose Admin Acetaminophen 650 mg 03/28/19 08:22 Tylenol - PO Q6H PRN Fever Or Pain Albuterol/Ipratropium 1 amp 03/23/19 17:50 03/31/19 20:29 Duoneb - NEB 1 amp Q6H PRN Administration SHORTNESS OF BREATH Alprazolam 0.25 mg 03/27/19 22:00 03/31/19 21:14 Xanax - PO 0.25 mg DAILY@2200 PRN Administration ANXIETY Aspirin 81 mg 03/25/19 10:00 04/01/19 11:16 Ecotrin - PO 81 mg DAILY [facility] Administration Bacitracin 1 applic 03/24/19 10:00 04/01/19 11:16 Bacitracin - TP 1 applic DAILY [facility] Administration Calcium Acetate 1,334 mg 03/23/19 17:30 04/01/19 11:17 Phoslo - PO 1,334 mg TIDCM [facility] Administration Diphenhydramine/Calamine/Camphor 1 applic 03/23/19 22:00 04/01/19 11:18 Caladryl - TP 1 applic BID [facility] Administration Fentanyl 25 mcg 03/23/19 15:56 Sublimaze Injection - IVPUSH [id number] PRN PAIN-PACU ORDER X 4 DOSES ONLY Ferrous Sulfate 325 mg 03/30/19 14:45 04/01/19 11:21 Feosol - PO Not Given DAILY [facility] Heparin Sodium (Porcine) 5,000 unit 03/23/19 22:00 04/01/19 14:43 Heparin - SQ 5,000 unit TID [facility] Administration Hydroxyzine Pamoate 25 mg 03/23/19 15:56 Vistaril - PO Q8H PRN FOR ITCHING Sodium Chloride 250 mls @ 3,000 mls/hr 04/01/19 07:00 Normal Saline - IV 04/02/19 06:59 PRN PRN Hypotension during Dialysis Sodium Chloride 250 mls @ 3,000 mls/hr 04/01/19 09:11 Normal Saline - IV 04/02/19 09:11 PRN PRN Hypotension during Dialysis Sodium Chloride 250 mls @ 3,000 mls/hr 04/01/19 09:12 Normal Saline - IV 04/02/19 09:13 PRN PRN Hypotension during Dialysis Isosorbide Mononitrate 30 mg 03/25/19 10:00 04/01/19 11:15 Imdur - PO 30 mg DAILY [facility] Administration Loratadine 10 mg 03/26/19 22:00 03/31/19 21:14 Claritin - PO 10 mg HS [facility] Administration Melatonin 3 mg 03/27/19 22:00 03/31/19 21:13 Melatonin PO Not Given HS [facility] Multivitamins/Minerals 1 each 03/24/19 10:00 04/01/19 11:14 Theragran-M PO 1 each DAILY [facility] Administration Polyethylene Glycol 17 gm 03/27/19 14:00 04/01/19 11:19 Miralax (For Daily Use) - PO Not Given DAILY [facility] Prochlorperazine Edisylate 5 mg 03/23/19 15:56 03/26/19 16:29 Compazine Injection - IM 5 mg Q4H PRN Administration NAUSEA AND/OR VOMITING Ropinirole HCl 0.5 mg 03/31/19 23:05 03/31/19 23:31 Requip - PO 04/03/19 23:04 0.5 mg HS [facility] Administration Thiamine HCl 100 mg 03/24/19 10:00 04/01/19 11:17 Vitamin B1 - PO 100 mg DAILY [facility] Administration 58-year-old female was in no acute distress, pallor 1+, no cyanosis, clubbing or jaundice. Last Vital Signs Temp Pulse Resp BP Pulse Ox 98.1 F 79 16 131/60 99 04/01/19 13:45 04/01/19 13:45 04/01/19 13:45 04/01/19 13:45 04/01/19 09:00 Intake & Output 03/29/19 03/30/19 03/31/19 04/01/19 23:59 23:59 23:59 23:59 Intake Total 1630 2450 650 1590 Output Total 3400 2800 Balance 1630 -950 650 -1210 Weight 82.554 kg 83.28 kg 82.735 kg 82.282 kg NECK: Supple, no jugular venous distention, +ve hepatojugular reflux , carotids were 2+, upstrokes were normal, no bruits were heard. HEART: PMI is the fifth intercostal space, no heaves or thrills, S1 and S2 were normal, grade II/ decrescendo systolic murmur was heard at the apex and left sternal border. No diastolic murmur or gallops were heard.. LUNGS: Decreased breath sounds at the bases. No extraneous sounds were heard. ABDOMEN:, Soft, nontender, no hepatosplenomegaly, no palpable masses. EXTREMITIES: No calf tenderness 2+ bilateral lower extremity dependent edema. C CBC, BMP 03/31/19 08:50 03/31/19 08:50 IMRESSIONS: 1. Congestive heart failure NYHA II 2. Elevated troponin levels, etiology: a). Related to acute renal failure. b): Congestive heart failure. c). Ischemic heart disease/NSTEMI 3. Diabetes mellitus. 4. Coronary artery disease,status post myocardial infarction, status post status post CABG. 5. Severe LV systolic dysfunction with severe reduction of LVEF. 6. Severe mitral regurgitation 7. Severe tricuspid regurgitation. 8. Anemia. 9. Poor compliance. 10. Hypercholesterolemia. RECOMMENDATIONS: 1. Trial with low-dose carvedilol starting at 3.125 mg by mouth every 12 hours under close monitoring of blood pressure and heart rate. 2. consider transfer to [facility] for further testing including cardiac catheterization and evaluation for an ICD insertion. 3. Risk modifications. 4. Increase ambulation. 5. patient has consented to transfer to tertiary care centerand is aware of the possible procedures will have to undergo. Prognosis: Guarded.
--- NOTE | 2019-04-01 15:20 | PN ---
Progress Note, Physician History of Present Illness: Pt seen and examined at bedside. She is awake and alert. She denies shortness of breath at rest. She complains of edema. She tolerated HD. - Current Medication List Current Medications: Active Medications Acetaminophen (Tylenol -) 650 mg PO Q6H PRN PRN Reason: Fever Or Pain Albuterol/Ipratropium (Duoneb -) 1 amp NEB Q6H PRN PRN Reason: SHORTNESS OF BREATH Last Admin: 03/31/19 20:29 Dose: 1 amp Alprazolam (Xanax -) 0.25 mg PO DAILY@2200 PRN PRN Reason: ANXIETY Last Admin: 03/31/19 21:14 Dose: 0.25 mg Aspirin (Ecotrin -) 81 mg PO DAILY [facility] Last Admin: 04/01/19 11:16 Dose: 81 mg Bacitracin (Bacitracin -) 1 applic TP DAILY [facility] Last Admin: 04/01/19 11:16 Dose: 1 applic Calcium Acetate (Phoslo -) 1,334 mg PO TIDCM [facility] Last Admin: 04/01/19 11:17 Dose: 1,334 mg Diphenhydramine/Calamine/Camphor (Caladryl -) 1 applic TP BID [facility] Last Admin: 04/01/19 11:18 Dose: 1 applic Fentanyl (Sublimaze Injection -) 25 mcg IVPUSH [id number] PRN PRN Reason: PAIN-PACU ORDER X 4 DOSES ONLY Ferrous Sulfate (Feosol -) 325 mg PO DAILY [facility] Last Admin: 04/01/19 11:21 Dose: Not Given Heparin Sodium (Porcine) (Heparin -) 5,000 unit SQ TID [facility] Last Admin: 04/01/19 14:43 Dose: 5,000 unit Hydroxyzine Pamoate (Vistaril -) 25 mg PO Q8H PRN PRN Reason: FOR ITCHING Sodium Chloride (Normal Saline -) 250 mls @ 3,000 mls/hr IV PRN PRN PRN Reason: Hypotension during Dialysis Stop: 04/02/19 06:59 Sodium Chloride (Normal Saline -) 250 mls @ 3,000 mls/hr IV PRN PRN PRN Reason: Hypotension during Dialysis Stop: 04/02/19 09:11 Sodium Chloride (Normal Saline -) 250 mls @ 3,000 mls/hr IV PRN PRN PRN Reason: Hypotension during Dialysis Stop: 04/02/19 09:13 Isosorbide Mononitrate (Imdur -) 30 mg PO DAILY [facility] Last Admin: 04/01/19 11:15 Dose: 30 mg Loratadine (Claritin -) 10 mg PO HS [facility] Last Admin: 03/31/19 21:14 Dose: 10 mg Melatonin (Melatonin) 3 mg PO HS [facility] Last Admin: 03/31/19 21:13 Dose: Not Given Multivitamins/Minerals (Theragran-M) 1 each PO DAILY [facility] Last Admin: 04/01/19 11:14 Dose: 1 each Polyethylene Glycol (Miralax (For Daily Use) -) 17 gm PO DAILY [facility] Last Admin: 04/01/19 11:19 Dose: Not Given Prochlorperazine Edisylate (Compazine Injection -) 5 mg IM Q4H PRN PRN Reason: NAUSEA AND/OR VOMITING Last Admin: 03/26/19 16:29 Dose: 5 mg Ropinirole HCl (Requip -) 0.5 mg PO HS [facility] Stop: 04/03/19 23:04 Last Admin: 03/31/19 23:31 Dose: 0.5 mg Thiamine HCl (Vitamin B1 -) 100 mg PO DAILY [facility] Last Admin: 04/01/19 11:17 Dose: 100 mg - Objective Vital Signs: Vital Signs Temperature 98.1 F 04/01/19 13:45 Pulse Rate 79 04/01/19 13:45 Respiratory Rate 16 04/01/19 13:45 Blood Pressure 131/60 04/01/19 13:45 O2 Sat by Pulse Oximetry (%) 99 04/01/19 09:00 Constitutional: Yes: Calm Eyes: Yes: Conjunctiva Clear HENT: Yes: Atraumatic Neck: Yes: Supple Cardiovascular: Yes: S1, S2 Respiratory: Yes: CTA Bilaterally Gastrointestinal: Yes: Normal Bowel Sounds, Soft Musculoskeletal: Yes: WNL Extremities: Yes: WNL Edema: Yes Edema: LLE: 2+, RLE: 2+ Integumentary: Yes: Petechiae Neurological: Yes: Oriented Psychiatric: Yes: Oriented Labs: CBC, BMP 03/31/19 08:50 03/31/19 08:50 INR, PTT INR 1.39 (0.83-1.09) H 03/23/19 05:30 Assessment/Plan Current Medications Generic Name Dose Route Start Last Admin Trade Name Fredallas PRN Reason Stop Dose Admin Acetaminophen 650 mg 03/28/19 08:22 Tylenol - PO Q6H PRN Fever Or Pain Albuterol/Ipratropium 1 amp 03/23/19 17:50 03/31/19 20:29 Duoneb - NEB 1 amp Q6H PRN Administration SHORTNESS OF BREATH Alprazolam 0.25 mg 03/27/19 22:00 03/31/19 21:14 Xanax - PO 0.25 mg DAILY@2200 PRN Administration ANXIETY Aspirin 81 mg 03/25/19 10:00 04/01/19 11:16 Ecotrin - PO 81 mg DAILY DEANNA Administration Bacitracin 1 applic 03/24/19 10:00 04/01/19 11:16 Bacitracin - TP 1 applic DAILY DEANNA Administration Calcium Acetate 1,334 mg 03/23/19 17:30 04/01/19 11:17 Phoslo - PO 1,334 mg TIDCM DEANNA Administration Diphenhydramine/Calamine/Camphor 1 applic 03/23/19 22:00 04/01/19 11:18 Caladryl - TP 1 applic BID DEANNA Administration Fentanyl 25 mcg 03/23/19 15:56 Sublimaze Injection - IVPUSH [id number] PRN PAIN-PACU ORDER X 4 DOSES ONLY Ferrous Sulfate 325 mg 03/30/19 14:45 04/01/19 11:21 Feosol - PO Not Given DAILY DEANNA Heparin Sodium (Porcine) 5,000 unit 03/23/19 22:00 04/01/19 14:43 Heparin - SQ 5,000 unit TID DEANNA Administration Hydroxyzine Pamoate 25 mg 03/23/19 15:56 Vistaril - PO Q8H PRN FOR ITCHING Sodium Chloride 250 mls @ 3,000 mls/hr 04/01/19 07:00 Normal Saline - IV 04/02/19 06:59 PRN PRN Hypotension during Dialysis Sodium Chloride 250 mls @ 3,000 mls/hr 04/01/19 09:11 Normal Saline - IV 04/02/19 09:11 PRN PRN Hypotension during Dialysis Sodium Chloride 250 mls @ 3,000 mls/hr 04/01/19 09:12 Normal Saline - IV 04/02/19 09:13 PRN PRN Hypotension during Dialysis Isosorbide Mononitrate 30 mg 03/25/19 10:00 04/01/19 11:15 Imdur - PO 30 mg DAILY DE[facility]NA Administration Loratadine 10 mg 03/26/19 22:00 03/31/19 21:14 Claritin - PO 10 mg HS DEANNA Administration Melatonin 3 mg 03/27/19 22:00 03/31/19 21:13 Melatonin PO Not Given HS DEANNA Multivitamins/Minerals 1 each 03/24/19 10:00 04/01/19 11:14 Theragran-M PO 1 each DAILY [facility] Administration Polyethylene Glycol 17 gm 03/27/19 14:00 04/01/19 11:19 Miralax (For Daily Use) - PO Not Given DAILY DEANNA Prochlorperazine Edisylate 5 mg 03/23/19 15:56 03/26/19 16:29 Compazine Injection - IM 5 mg Q4H PRN Administration NAUSEA AND/OR VOMITING Ropinirole HCl 0.5 mg 03/31/19 23:05 03/31/19 23:31 Requip - PO 04/03/19 23:04 0.5 mg HS DEANNA Administration Thiamine HCl 100 mg 03/24/19 10:00 04/01/19 11:17 Vitamin B1 - PO 100 mg DAILY [facility] Administration Laboratory Tests 03/23/19 03/23/19 03/23/19 06:30 06:30 18:00 YINA M-Ryan Not observed HAIDER Screen Negative c-ANCA <1:20 Proteinase 3 (PR3) <3.5 p-ANCA <1:20 Atypical p-ANCA <1:20 Myeloperoxidase Ab <9.0 Double Strand DNA Ab <1 Glomerular Base Memb Ab 5 Complement C3 59 L Complement C4 14 Free [place] LC, Quant Free Lambda LC, Quant Free [place]/Lambda Ratio 03/31/19 16:55 YINA M-Ryan [facility] Screen c-ANCA Proteinase 3 (PR3) p-ANCA Atypical p-ANCA Myeloperoxidase Ab Double Strand DNA Ab Glomerular Base Memb Ab Complement C3 Complement C4 Free [place] LC, Quant Pending Free Lambda LC, Quant Pending Free [place]/Lambda Ratio Pending Impression 1. CKD with YVES 2. CHF 3. DM 4. HTN 5. hyperlipidemia 6. nephrotic range proteinuria 7. CAD 8. elevated troponin 9. hyponatremia 10. esrd 11. positive stress test 12. thrombocytopenia Plan - HD today - called rheum to evaluate pt - cardio follow up, pt likely to be transferred for cath - renal diet with fluid restriction - unable to do renal biopsy as she is on aspirin
[2019-04-01] MEDS: ALBUTEROL SO4 2.5/IPRATROPIUM 0.5 INH SOL 3 ML VIAL.NEB. NEB PRN (20:45)
[2019-04-01] MEDS: LORATADINE 10 MG TABLET PO SCH (21:50)
[2019-04-01] MEDS: MELATONIN 1 MG TABLET PO SCH (21:50)
[2019-04-01] MEDS: rOPINIRole HCL 0.5 MG TABLET PO SCH (21:51)
[2019-04-01] MEDS: ALPRAZolam 0.25 MG TABLET PO PRN (21:56)
[2019-04-02] MEDS: HEPARIN NA (PORCINE) 5,000 UNITS/ML 1ML VIAL SQ SCH ×3 (06:20→22:26)
[2019-04-02] MEDS: CALCIUM ACETATE 667 MG CAPSULE (FP) PO SCH ×3 (08:23→16:36)
[2019-04-02] MEDS ORDERED: PT OWN MED DRAWER 7, Y5N ONE ×2 (09:30→22:19)
[2019-04-02] MEDS: BACITRACIN 15 GM TUBE TOPICAL OINTMENT TP SCH (09:39)
[2019-04-02] MEDS: THIAMINE HCL 100 MG TABLET (FP) PO SCH (09:39)
[2019-04-02] MEDS: PRAMOXINE HCL/CALAMINE 177 ML LOTION TP SCH ×2 (09:39→22:26)
[2019-04-02] MEDS: MULTIVITAMINS THER W-MINERALS COMBO TABLET (FP) PO SCH (09:39)
[2019-04-02] MEDS: ASPIRIN COATED 81 MG TABLET.EC PO SCH (09:39)
[2019-04-02] MEDS: FERROUS SO4 325 MG TABLET (FP) PO SCH (09:39)
[2019-04-02] MEDS: POLYETHYLENE GLYCOL 3350 119 GM BTL PO SCH (09:39)
[2019-04-02] MEDS: ISOSORBIDE MONONITRATE 30 MG TAB.SR.24H (FP) PO SCH (11:25)
--- NOTE | 2019-04-02 11:32 | PN ---
Progress Note, Physician History of Present Illness: pulmonary alert,c/o sob,-cp - Current Medication List Current Medications: Active Medications Acetaminophen (Tylenol -) 650 mg PO Q6H PRN PRN Reason: Fever Or Pain Albuterol/Ipratropium (Duoneb -) 1 amp NEB Q6H PRN PRN Reason: SHORTNESS OF BREATH Last Admin: 04/01/19 20:45 Dose: 1 amp Alprazolam (Xanax -) 0.25 mg PO DAILY@2200 PRN PRN Reason: ANXIETY Last Admin: 04/01/19 21:56 Dose: 0.25 mg Aspirin (Ecotrin -) 81 mg PO DAILY [facility] Last Admin: 04/02/19 09:39 Dose: 81 mg Bacitracin (Bacitracin -) 1 applic TP DAILY [facility] Last Admin: 04/02/19 09:39 Dose: 1 applic Calcium Acetate (Phoslo -) 1,334 mg PO TIDCM [facility] Last Admin: 04/02/19 11:25 Dose: 1,334 mg Diphenhydramine/Calamine/Camphor (Caladryl -) 1 applic TP BID [facility] Last Admin: 04/02/19 09:39 Dose: 1 applic Fentanyl (Sublimaze Injection -) 25 mcg IVPUSH [id number] PRN PRN Reason: PAIN-PACU ORDER X 4 DOSES ONLY Ferrous Sulfate (Feosol -) 325 mg PO DAILY [facility] Last Admin: 04/02/19 09:39 Dose: 325 mg Heparin Sodium (Porcine) (Heparin -) 5,000 unit SQ TID [facility] Last Admin: 04/02/19 06:20 Dose: 5,000 unit Hydroxyzine Pamoate (Vistaril -) 25 mg PO Q8H PRN PRN Reason: FOR ITCHING Sodium Chloride (Normal Saline -) 250 mls @ 3,000 mls/hr IV PRN PRN PRN Reason: Hypotension during Dialysis Stop: 04/02/19 09:11 Sodium Chloride (Normal Saline -) 250 mls @ 3,000 mls/hr IV PRN PRN PRN Reason: Hypotension during Dialysis Stop: 04/02/19 09:13 Isosorbide Mononitrate (Imdur -) 30 mg PO DAILY [facility] Last Admin: 04/02/19 11:25 Dose: 30 mg Loratadine (Claritin -) 10 mg PO HS [facility] Last Admin: 04/01/19 21:50 Dose: 10 mg Melatonin (Melatonin) 3 mg PO [facility] Last Admin: 04/01/19 21:50 Dose: 3 mg Multivitamins/Minerals (Theragran-M) 1 each PO DAILY [facility] Last Admin: 04/02/19 09:39 Dose: 1 each Polyethylene Glycol (Miralax (For Daily Use) -) 17 gm PO DAILY [facility] Last Admin: 04/02/19 09:39 Dose: Not Given Prochlorperazine Edisylate (Compazine Injection -) 5 mg IM Q4H PRN PRN Reason: NAUSEA AND/OR VOMITING Last Admin: 03/26/19 16:29 Dose: 5 mg Ropinirole HCl (Requip -) 0.5 mg PO [facility] Stop: 04/03/19 23:04 Last Admin: 04/01/19 21:51 Dose: 0.5 mg Thiamine HCl (Vitamin B1 -) 100 mg PO DAILY [facility] Last Admin: 04/02/19 09:39 Dose: 100 mg - Objective Vital Signs: Vital Signs Temperature 97.3 F L 04/02/19 06:00 Pulse Rate 77 04/02/19 06:00 Respiratory Rate 18 04/02/19 06:00 Blood Pressure 116/77 04/02/19 06:00 O2 Sat by Pulse Oximetry (%) 98 04/01/19 21:00 Constitutional: Yes: Well Nourished, Calm Eyes: Yes: WNL HENT: Yes: WNL Neck: Yes: WNL Cardiovascular: Yes: Regular Rate and Rhythm, S1, S2 Respiratory: Yes: Rales (bibasilar rales) Gastrointestinal: Yes: Normal Bowel Sounds, Soft Extremities: Yes: WNL Edema: Yes Labs: Problem List - Problems (1) Uremic pruritus Code(s): L29.9 - PRURITUS, UNSPECIFIED (2) COPD (chronic obstructive pulmonary disease) Code(s): J44.9 - CHRONIC OBSTRUCTIVE PULMONARY DISEASE, UNSPECIFIED (3) Dyspnea Code(s): R06.00 - DYSPNEA, UNSPECIFIED (4) [id number] kidney injury Code(s): N17.9 - ACUTE KIDNEY FAILURE, UNSPECIFIED; N18.9 - CHRONIC KIDNEY DISEASE, UNSPECIFIED (5) CHF (congestive heart failure) Code(s): I50.9 - HEART FAILURE, UNSPECIFIED (6) S/P CABG (coronary artery bypass graft) Code(s): Z95.1 - PRESENCE OF AORTOCORONARY BYPASS GRAFT (7) Troponin I above reference range Code(s): R79.89 - OTHER SPECIFIED ABNORMAL FINDINGS OF BLOOD CHEMISTRY Assessment/Plan IMP DYSPNEA IMPROVED ACUTE ON CHRONIC CHF IMPROVED ACUTE ON CHRONIC KIDNEY FAILURE SEVERE LV SYSTOLIC DYSFUNCTION + MYOCARDIAL PERFUSION SCAN DM COPD NOT IN ACUTE EXACERBATION ASHD S/P CABG + TROPONIN H/O TOBACCO USE LIKELY UREMIC PRURITIS PULMONARY HTN SEVERE MR PLAN HD PER RENAL O2 MONITOR LYTES,RENAL FUNCTION F/U CHEST X-RAYS CARDIAC CATH NEXT WEEK DR CHUA Problem List - Problems (1) Uremic pruritus Code(s): L29.9 - PRURITUS, UNSPECIFIED (2) COPD (chronic obstructive pulmonary disease) Code(s): J44.9 - CHRONIC OBSTRUCTIVE PULMONARY DISEASE, UNSPECIFIED (3) Dyspnea Code(s): R06.00 - DYSPNEA, UNSPECIFIED (4) Itwmv-iz-spfwiyf kidney injury Code(s): N17.9 - ACUTE KIDNEY FAILURE, UNSPECIFIED; N18.9 - CHRONIC KIDNEY DISEASE, UNSPECIFIED (5) CHF (congestive heart failure) Code(s): I50.9 - HEART FAILURE, UNSPECIFIED (6) S/P CABG (coronary artery bypass graft) Code(s): Z95.1 - PRESENCE OF AORTOCORONARY BYPASS GRAFT (7) Troponin I above reference range Code(s): R79.89 - OTHER SPECIFIED ABNORMAL FINDINGS OF BLOOD CHEMISTRY
--- NOTE | 2019-04-02 14:49 | PN ---
Progress Note (short form) - Note Progress Note: Resting comfortably, no exertional dyspnea, paroxysmal nocturnal dyspnea or orthopnea. No history of palpitations, lightheadedness, dizziness presyncope or syncope. Lexiscan revealedand inferolateral wall infarct with марина-infarct ischemia. Severe LV systolic dysfunction and EF was reported to be 13%.Echo also revealed severe mitral and tricuspid regurgitation with severe left ventricular systolic dysfunction. Detailed discussion with patient regarding further evaluation and management and was advised that she should be transferred to a tertiary care center for a cardiac catheterizationand she most likely is a candidate for ICD insertion ( primary prophylaxis). Patient is agreeable for transfer to [facility] and arrangements have been made. Dr. Henning has accepted the patient. Active Medications Acetaminophen (Tylenol -) 650 mg PO Q6H PRN PRN Reason: Fever Or Pain Albuterol/Ipratropium (Duoneb -) 1 amp NEB Q6H PRN PRN Reason: SHORTNESS OF BREATH Last Admin: 04/01/19 20:45 Dose: 1 amp Alprazolam (Xanax -) 0.25 mg PO DAILY@2200 PRN PRN Reason: ANXIETY Last Admin: 04/01/19 21:56 Dose: 0.25 mg Aspirin (Ecotrin -) 81 mg PO DAILY [facility] Last Admin: 04/02/19 09:39 Dose: 81 mg Bacitracin (Bacitracin -) 1 applic TP DAILY [facility] Last Admin: 04/02/19 09:39 Dose: 1 applic Calcium Acetate (Phoslo -) 1,334 mg PO TIDCM [facility] Last Admin: 04/02/19 11:25 Dose: 1,334 mg Diphenhydramine/Calamine/Camphor (Caladryl -) 1 applic TP BID [facility] Last Admin: 04/02/19 09:39 Dose: 1 applic Fentanyl (Sublimaze Injection -) 25 mcg IVPUSH [id number] PRN PRN Reason: PAIN-PACU ORDER X 4 DOSES ONLY Ferrous Sulfate (Feosol -) 325 mg PO DAILY [facility] Last Admin: 04/02/19 09:39 Dose: 325 mg Heparin Sodium (Porcine) (Heparin -) 5,000 unit SQ TID [facility] Last Admin: 04/02/19 06:20 Dose: 5,000 unit Hydroxyzine Pamoate (Vistaril -) 25 mg PO Q8H PRN PRN Reason: FOR ITCHING Sodium Chloride (Normal Saline -) 250 mls @ 3,000 mls/hr IV PRN PRN PRN Reason: Hypotension during Dialysis Stop: 04/02/19 09:11 Sodium Chloride (Normal Saline -) 250 mls @ 3,000 mls/hr IV PRN PRN PRN Reason: Hypotension during Dialysis Stop: 04/02/19 09:13 Isosorbide Mononitrate (Imdur -) 30 mg PO DAILY [facility] Last Admin: 04/02/19 11:25 Dose: 30 mg Loratadine (Claritin -) 10 mg PO HS [facility] Last Admin: 04/01/19 21:50 Dose: 10 mg Melatonin (Melatonin) 3 mg PO HS [facility] Last Admin: 04/01/19 21:50 Dose: 3 mg Multivitamins/Minerals (Theragran-M) 1 each PO DAILY [facility] Last Admin: 04/02/19 09:39 Dose: 1 each Polyethylene Glycol (Miralax (For Daily Use) -) 17 gm PO DAILY [facility] Last Admin: 04/02/19 09:39 Dose: Not Given Prochlorperazine Edisylate (Compazine Injection -) 5 mg IM Q4H PRN PRN Reason: NAUSEA AND/OR VOMITING Last Admin: 03/26/19 16:29 Dose: 5 mg Ropinirole HCl (Requip -) 0.5 mg PO HS [facility] Stop: 04/03/19 23:04 Last Admin: 04/01/19 21:51 Dose: 0.5 mg Thiamine HCl (Vitamin B1 -) 100 mg PO DAILY [facility] Last Admin: 04/02/19 09:39 Dose: 100 mg 58-year-old female was in no acute distress, pallor 1+, no cyanosis, clubbing or jaundice. Last Vital Signs Temp Pulse Resp BP Pulse Ox 97.5 F L 82 18 136/57 L 98 04/02/19 10:00 04/02/19 11:00 04/02/19 11:00 04/02/19 11:00 04/01/19 21:00 Intake & Output 03/30/19 03/31/19 04/01/19 04/02/19 23:59 23:59 23:59 23:59 Intake Total 2450 650 1590 Output Total 3400 2800 Balance -950 650 -1210 Weight 83.28 kg 82.735 kg 82.282 kg NECK: Supple, no jugular venous distention, +ve hepatojugular reflux , carotids were 2+, upstrokes were normal, no bruits were heard. HEART: PMI is the fifth intercostal space, no heaves or thrills, S1 and S2 were normal, grade II/ decrescendo systolic murmur was heard at the apex and left sternal border. No diastolic murmur or gallops were heard.. LUNGS: Decreased breath sounds at the bases. No extraneous sounds were heard. ABDOMEN:, Soft, nontender, no hepatosplenomegaly, no palpable masses. EXTREMITIES: No calf tenderness 2+ bilateral lower extremity dependent edema. CBC, BMP 03/31/19 08:50 03/31/19 08:50 IMRESSIONS: 1. Congestive heart failure NYHA II 2. Elevated troponin levels, etiology: a). Related to acute renal failure. b): Congestive heart failure. c). Ischemic heart disease/NSTEMI 3. Diabetes mellitus. 4. Coronary artery disease,status post myocardial infarction, status post status post CABG. 5. Severe LV systolic dysfunction with severe reduction of LVEF. 6. Severe mitral regurgitation 7. Severe tricuspid regurgitation. 8. Anemia. 9. Poor compliance. 10. Hypercholesterolemia. RECOMMENDATIONS: 1. Trial with low-dose carvedilol starting at 3.125 mg by mouth every 12 hours under close monitoring of blood pressure and heart rate and titrate. 2. Consider transfer to [facility] for further testing including cardiac catheterization and evaluation for an ICD insertion. 3. Risk modifications. 4. Increase ambulation. 5. Pending transfer to [facility]. Prognosis: Guarded. Time spent face to face conversation with patient,arranging and transferring infomation 1hr.10 mins.
--- NOTE | 2019-04-02 15:16 | DS ---
Physical Exam: SUBJECTIVE: Patient seen and examined at the bedside. she will be transferred to [facility] and she is in agreement to go. OBJECTIVE: cardiology had a detailed discussion with patient regarding further evaluation at [facility] for cardiac catheterization and for possible ICD placement. She was been accepted by Dr. Henning. She received dialysis on Thursday04/01/2019 with 2.3 liters removed Patient is a 58 year old female with a significant past medical history of diabetic retinopathy, DM, CAD s/p CABG (4 vessel, 2014) and CHF. She presents to the ED for worsening shortness of breath and malaise and found to have elevated creatinine of 8 and started on dialysis. She also reported a rash that started 2 weeks ago after being scratched by her cat. Rash was reported to be priutirc and spreading. She had a biopsy done, results still pending per dermatology office. Patient underwent a stress test with the following results: Lexiscan with moderate ischemia and LVEF 14% patient to be transferred to [facility] [place] cardiac cath. Her next dialysis is scheduled for ThursdayApril 04. Vital Signs Period Temp Pulse Resp BP Sys/Horowitz Pulse Ox Last 24 Hr 97.3 F-98.4 F 77-83 16-20 111-144/47-77 98 PHYSICAL EXAM GENERAL: The patient is awake, alert, and fully oriented, in no acute distress. HEAD: Normal with no signs of trauma. EYES: PERRL, extraocular movements intact, sclera anicteric, conjunctiva clear. No ptosis. ENT: Ears normal, nares patent, oropharynx clear without exudates, moist mucous membranes. NECK: Trachea midline, full range of motion, supple. LUNGS: Breath sounds equal, clear to auscultation bilaterally, no wheezes HEART: Regular rate and rhythm ABDOMEN: Soft, nontender, nondistended, normoactive bowel sounds, no guarding EXTREMITIES: +2 tight pitting edema equally bilaterally. NEUROLOGICAL: Normal speech, gait not observed. PSYCH: Normal mood, normal affect. LABS HOSPITAL COURSE: Date of Admission:03/22/19 Date of Discharge: 04/02/19 Minutes to complete discharge: 45 Discharge Summary Problems reviewed: Yes Reason For Visit: ACUTE RENAL FAILURE, ELEVATED TROPONIN LEVEL Current Active Problems YVES (acute kidney injury) (Acute) Acute kidney injury superimposed on CKD (Acute) Anemia due to chronic kidney disease (Acute) CKD (chronic kidney disease) requiring chronic dialysis (Acute) COPD (chronic obstructive pulmonary disease) (Acute) Dyspnea (Acute) ESRD (end stage renal disease) on dialysis (Acute) Hyperphosphatemia (Acute) Hypocalcemia (Acute) Hyponatremia (Acute) Hyponatremia (Acute) Penicillin allergy (Acute) Prophylactic measure (Acute) Prophylactic measure (Acute) Pyuria (Acute) Rash and nonspecific skin eruption (Acute) Restless leg syndrome (Acute) Situational anxiety (Acute) Troponin I above reference range (Acute) UTI (urinary tract infection) (Acute) Uremic pruritus (Acute) Condition: Guarded - Instructions Diet, Activity, Other Instructions: transfer to [facility] Referrals: Eliud Kennedy MD [Staff Physician] - (You have an appoitnment for a post hospital visit with a new PCP. date: April 05 time: 11:00a.m bring: your insurance card, discharge paperwork) Gilbert Pond MD [Staff Physician] - Disposition: TRANSFER ACUTE CARE/OTHER HOSP - Home Medications Comprehensive Discharge Medication List: Ambulatory Orders Aspirin Coated [Ecotrin -] 81 mg PO DAILY #30 tablet.ec 05/22/16 Glimepiride [Amaryl -] 3 mg PO DAILY@0700 #30 tablet 05/22/16 Cetirizine HCl [Zyrtec -] 10 mg PO HS 02/03/19 Fluticasone Prop 0.05% Nasal [Flonase -] 1 - 2 spray NS DAILY 02/03/19 Aspirin Coated [Ecotrin -] 81 mg PO DAILY tablet.ec 03/31/19 Bacitracin - [Bacitracin Topical Ointment -] 1 applic TP DAILY tube 03/31/19 Calcium Acetate [Phoslo -] 1,334 mg PO TIDCM #180 capsule 03/31/19 Ferrous Sulfate [Feosol] 325 mg PO DAILY ud 03/31/19 Isosorbide Mononitrate [Imdur -] 30 mg PO DAILY #90 tab.sr.24h 03/31/19 Pramoxine HCl/Calamine [Caladryl -] 1 applic TP BID #0 bottle 03/31/19 Ropinirole HCl [Requip -] 0.5 mg PO HS #30 tablet 03/31/19 Problem List - Problems (1) ESRD (end stage renal disease) on dialysis Assessment/Plan: tolerated dialysis on Thursday with 2.3 liters removed, next dialysis due on ThursdayApril 04. patient to receive dialysis on Thursday at [facility] [place] Code(s): N18.6 - END STAGE RENAL DISEASE; Z99.2 - DEPENDENCE ON RENAL DIALYSIS (2) Anemia due to chronic kidney disease Assessment/Plan: s/p 1 unit of prbc. monitor cbc daily and maintain hmg 8> for cardiac disease Code(s): N18.9 - CHRONIC KIDNEY DISEASE, UNSPECIFIED; D63.1 - ANEMIA IN CHRONIC KIDNEY DISEASE (3) COPD (chronic obstructive pulmonary disease) Assessment/Plan: duo nebs prn supplemental O2 as needed appreciated pulmonary consultation Code(s): J44.9 - CHRONIC OBSTRUCTIVE PULMONARY DISEASE, UNSPECIFIED (4) Dyspnea Assessment/Plan: tolerating room air, with 2 liters prn Code(s): R06.00 - DYSPNEA, UNSPECIFIED (5) Troponin I above reference range Assessment/Plan: troponins elevated peaked at 2.6 and trended to 1.77. stress test shows LVEF of 13% with moderate ischemia Echo also revealed severe mitral and tricuspid regurgitation with severe left ventricular systolic dysfunction. patient for transfer to [facility] Code(s): R79.89 - OTHER SPECIFIED ABNORMAL FINDINGS OF BLOOD CHEMISTRY (6) Diabetes mellitus, insulin dependent (IDDM), uncontrolled Assessment/Plan: a1c stable glucose not elevated, continue to monitor. Code(s): E10.65 - TYPE 1 DIABETES MELLITUS WITH HYPERGLYCEMIA (7) Hyponatremia Assessment/Plan: improving with fluid restriction, monitor electrolytes daily Code(s): E87.1 - HYPO-OSMOLALITY AND HYPONATREMIA (8) Hyperphosphatemia Code(s): E83.39 - OTHER DISORDERS OF PHOSPHORUS METABOLISM (9) Hypocalcemia Assessment/Plan: monitor with daily labs Code(s): E83.51 - HYPOCALCEMIA (10) CHF (congestive heart failure) Assessment/Plan: TTE LV fx severly reduced, global hypokinesis had stress test which shows moderate ischemia and severely reduced lvef, for transfer to [facility] today Code(s): I50.9 - HEART FAILURE, UNSPECIFIED (11) Coronary artery disease Assessment/Plan: CAD s/p CABG (4 vessel, 2014) asa 81 daily-given elevated troponins can not hold asa for proposed renal bx TTE noted above, lexiscan as noted above Code(s): I25.10 - ATHSCL HEART DISEASE OF [place] CORONARY ARTERY W/O ANG PCTRS Qualifiers: Coronary Disease-Associated Artery/Lesion type: [place] artery [place] vs. transplanted heart: [place] heart Associated angina: without angina Qualified Code(s): I25.10 - Atherosclerotic heart disease of [place] coronary artery without angina pectoris (12) Pyuria Assessment/Plan: UA with 3+ leuk, nitrate -, WBC 442 group b strep UTI, blood cultures negative treated with vancomycin with HD for one week Code(s): R82.81 - PYURIA (13) Rash and nonspecific skin eruption Assessment/Plan: recent cat scratch reported, bortonella negative extreme pruritus partly due to uremia, resolving seen by dermatology- Dr Watson and biopsy done. called office and provided my fax no to fax over report once available. c/w calamine lotion to affected area and c/w atarax for puritus Code(s): R21 - RASH AND OTHER NONSPECIFIC SKIN ERUPTION (14) Prophylactic measure Assessment/Plan: FEN renal/diabetic diet monitor electrolytes no additional IVF needed at this time DVT heparin sq Dispo maintain on tele full code Code(s): Z29.9 - ENCOUNTER FOR PROPHYLACTIC MEASURES, UNSPECIFIED This patient is new to me today: No Emergency Visit: Yes ED Registration Date: 03/22/19 Care time: The patient presented to the Emergency Department on the above date and was hospitalized for further evaluation of their emergent condition. Critical Care patient: No - Discharge Referral Referred to [facility] No
[2019-04-02] MEDS ORDERED: FUROSEMIDE 40 MG/4 ML INJECTABLE VIAL IVPUSH ONE (15:41)
--- NOTE | 2019-04-02 15:45 | PN ---
Progress Note, Physician History of Present Illness: Pt seen and examined at bedside. She is being transferred for cardiac cath. She denies shortness of breath. - Current Medication List Current Medications: Active Medications Acetaminophen (Tylenol -) 650 mg PO Q6H PRN PRN Reason: Fever Or Pain Albuterol/Ipratropium (Duoneb -) 1 amp NEB Q6H PRN PRN Reason: SHORTNESS OF BREATH Last Admin: 04/01/19 20:45 Dose: 1 amp Alprazolam (Xanax -) 0.25 mg PO DAILY@2200 PRN PRN Reason: ANXIETY Last Admin: 04/01/19 21:56 Dose: 0.25 mg Aspirin (Ecotrin -) 81 mg PO DAILY [facility] Last Admin: 04/02/19 09:39 Dose: 81 mg Bacitracin (Bacitracin -) 1 applic TP DAILY [facility] Last Admin: 04/02/19 09:39 Dose: 1 applic Calcium Acetate (Phoslo -) 1,334 mg PO TIDCM [facility] Last Admin: 04/02/19 11:25 Dose: 1,334 mg Diphenhydramine/Calamine/Camphor (Caladryl -) 1 applic TP BID [facility] Last Admin: 04/02/19 09:39 Dose: 1 applic Fentanyl (Sublimaze Injection -) 25 mcg IVPUSH [id number] PRN PRN Reason: PAIN-PACU ORDER X 4 DOSES ONLY Ferrous Sulfate (Feosol -) 325 mg PO DAILY [facility] Last Admin: 04/02/19 09:39 Dose: 325 mg Furosemide (Lasix Injection -) 40 mg IVPUSH ONCE ONE Stop: 04/02/19 15:42 Heparin Sodium (Porcine) (Heparin -) 5,000 unit SQ TID [facility] Last Admin: 04/02/19 14:40 Dose: 5,000 unit Hydroxyzine Pamoate (Vistaril -) 25 mg PO Q8H PRN PRN Reason: FOR ITCHING Sodium Chloride (Normal Saline -) 250 mls @ 3,000 mls/hr IV PRN PRN PRN Reason: Hypotension during Dialysis Stop: 04/02/19 09:11 Sodium Chloride (Normal Saline -) 250 mls @ 3,000 mls/hr IV PRN PRN PRN Reason: Hypotension during Dialysis Stop: 04/02/19 09:13 Isosorbide Mononitrate (Imdur -) 30 mg PO DAILY [facility] Last Admin: 04/02/19 11:25 Dose: 30 mg Loratadine (Claritin -) 10 mg PO HS [facility] Last Admin: 04/01/19 21:50 Dose: 10 mg Melatonin (Melatonin) 3 mg PO HS [facility] Last Admin: 04/01/19 21:50 Dose: 3 mg Multivitamins/Minerals (Theragran-M) 1 each PO DAILY [facility] Last Admin: 04/02/19 09:39 Dose: 1 each Polyethylene Glycol (Miralax (For Daily Use) -) 17 gm PO DAILY [facility] Last Admin: 04/02/19 09:39 Dose: Not Given Prochlorperazine Edisylate (Compazine Injection -) 5 mg IM Q4H PRN PRN Reason: NAUSEA AND/OR VOMITING Last Admin: 03/26/19 16:29 Dose: 5 mg Ropinirole HCl (Requip -) 0.5 mg PO [facility] Stop: 04/03/19 23:04 Last Admin: 04/01/19 21:51 Dose: 0.5 mg Thiamine HCl (Vitamin B1 -) 100 mg PO DAILY [facility] Last Admin: 04/02/19 09:39 Dose: 100 mg - Objective Vital Signs: Vital Signs Temperature 98.4 F 04/02/19 14:55 Pulse Rate 82 04/02/19 14:55 Respiratory Rate 18 04/02/19 14:55 Blood Pressure 136/57 L 04/02/19 14:55 O2 Sat by Pulse Oximetry (%) 98 04/01/19 21:00 Constitutional: Yes: Calm Eyes: Yes: Conjunctiva Clear HENT: Yes: Atraumatic Neck: Yes: Supple Cardiovascular: Yes: S1, S2 Respiratory: Yes: CTA Bilaterally Gastrointestinal: Yes: Normal Bowel Sounds, Soft Genitourinary: Yes: WNL Edema: Yes Edema: LLE: 1+, RLE: 1+ Integumentary: Yes: Petechiae Neurological: Yes: Oriented Psychiatric: Yes: Oriented Labs: CBC, BMP 03/31/19 08:50 03/31/19 08:50 INR, PTT INR 1.39 (0.83-1.09) H 03/23/19 05:30 Assessment/Plan Current Medications Generic Name Dose Route Start Last Admin Trade Name Freq PRN Reason Stop Dose Admin Acetaminophen 650 mg 03/28/19 08:22 Tylenol - PO Q6H PRN Fever Or Pain Albuterol/Ipratropium 1 amp 03/23/19 17:50 04/01/19 20:45 Duoneb - NEB 1 amp Q6H PRN Administration SHORTNESS OF BREATH Alprazolam 0.25 mg 03/27/19 22:00 04/01/19 21:56 Xanax - PO 0.25 mg DAILY@2200 PRN Administration ANXIETY Aspirin 81 mg 03/25/19 10:00 04/02/19 09:39 Ecotrin - PO 81 mg DAILY DEANNA Administration Bacitracin 1 applic 03/24/19 10:00 04/02/19 09:39 Bacitracin - TP 1 applic DAILY DEANNA Administration Calcium Acetate 1,334 mg 03/23/19 17:30 04/02/19 11:25 Phoslo - PO 1,334 mg TIDCM DEANNA Administration Diphenhydramine/Calamine/Camphor 1 applic 03/23/19 22:00 04/02/19 09:39 Caladryl - TP 1 applic BID DEANNA Administration Fentanyl 25 mcg 03/23/19 15:56 Sublimaze Injection - IVPUSH [id number] PRN PAIN-PACU ORDER X 4 DOSES ONLY Ferrous Sulfate 325 mg 03/30/19 14:45 04/02/19 09:39 Feosol - PO 325 mg DAILY DEANNA Administration Furosemide 40 mg 04/02/19 15:41 Lasix Injection - IVPUSH 04/02/19 15:42 ONCE ONE Heparin Sodium (Porcine) 5,000 unit 03/23/19 22:00 04/02/19 14:40 Heparin - SQ 5,000 unit TID DEANNA Administration Hydroxyzine Pamoate 25 mg 03/23/19 15:56 Vistaril - PO Q8H PRN FOR ITCHING Sodium Chloride 250 mls @ 3,000 mls/hr 04/01/19 09:11 Normal Saline - IV 04/02/19 09:11 PRN PRN Hypotension during Dialysis Sodium Chloride 250 mls @ 3,000 mls/hr 04/01/19 09:12 Normal Saline - IV 04/02/19 09:13 PRN PRN Hypotension during Dialysis Isosorbide Mononitrate 30 mg 03/25/19 10:00 04/02/19 11:25 Imdur - PO 30 mg DAILY DEANNA Administration Loratadine 10 mg 03/26/19 22:00 04/01/19 21:50 Claritin - PO 10 mg HS DEANNA Administration Melatonin 3 mg 03/27/19 22:00 04/01/19 21:50 Melatonin PO 3 mg HS DEANNA Administration Multivitamins/Minerals 1 each 03/24/19 10:00 04/02/19 09:39 Theragran-M PO 1 each DAILY DEANNA Administration Polyethylene Glycol 17 gm 03/27/19 14:00 04/02/19 09:39 Miralax (For Daily Use) - PO Not Given DAILY DEANNA Prochlorperazine Edisylate 5 mg 03/23/19 15:56 03/26/19 16:29 Compazine Injection - IM 5 mg Q4H PRN Administration NAUSEA AND/OR VOMITING Ropinirole HCl 0.5 mg 03/31/19 23:05 04/01/19 21:51 Requip - PO 04/03/19 23:04 0.5 mg HS DEANNA Administration Thiamine HCl 100 mg 03/24/19 10:00 04/02/19 09:39 Vitamin B1 - PO 100 mg DAILY DEANNA Administration Laboratory Tests 03/23/19 03/23/19 03/23/19 06:30 06:30 18:00 YINA M-Ryan Not observed HAIDER Screen Negative c-ANCA <1:20 Complement C3 59 L Complement C4 14 Free [place] LC, Quant Free Lambda LC, Quant Free [place]/Lambda Ratio 03/31/19 16:55 YINA M-Ryan HAIDER Screen c-ANCA Complement C3 Complement C4 Free [place] LC, Quant Pending Free Lambda LC, Quant Pending Free [place]/Lambda Ratio Pending Impression 1. CKD with YVES 2. CHF 3. DM 4. HTN 5. hyperlipidemia 6. nephrotic range proteinuria 7. CAD 8. elevated troponin 9. hyponatremia 10. esrd 11. positive stress test 12. thrombocytopenia Plan - pt tolerated HD yesterday - will give a dose of lasix today - pt being transferred for cardiac cath today - HD is set up at [facility] [place] - discussed with medical team - discussed with cardio - renal diet with fluid restriction - unable to do renal biopsy at this point as she has active cardiac issues and is on a/c
--- NOTE | 2019-04-02 19:47 | CONSULT ---
Consult - History of Present Illness History of Present Illness: 58y/o female with history of diabetes type II with retinopathy, CAD s/p 4 vessel CABG (2014), CHF, COPD and chronic kidney disease admitted with a 2 week history of SOB and skin rash. In the hospital she was found to have acute renal failure and low C3 - rule out CTD. A Lexicon stress test (03/31/19) was reported with infero lateral infarct with марина-infarct ischemia, severe LV disfunction (EF13%) - she is scheduled to be transferred to [facility]. HPI. The patient reports a 2 - 3 week history of pruritic skin rash present initially in arms and extending to abdomen. After the rash developed she had a scratch by her cat. The rash improved in hospital, however she still has pruritus. The patient has chronic knee pain and tenderness in the left lateral aspect of pelvis. She denies arthralgia in hands, previous skin rash, oral ulcers, Raynaud's phenomenon or Sicca syndrome. In the last few weeks she has had chills and intermittent fever (not quantified). Since admission temperature has been normal. Lab results available in the hospital: she has had elevation of creatinine since 05/19/16 (1.9). On admission on 03/22/19 creatinine was 8.8 and in the hospital improved to 3.3 (03/31/19). Urinalysis had protein 2+ and blood 1+. HAIDER was negative, M spike negative, ANCA, myeloperoxidase, proteinase-3 and glomerular basal membrane antibody were all negative. C3: 59 (N: 82-167) and C4 normal (14). Serology for hepatitis A, B and C was negative. Lyme and Bartonella antibodies were negative. - History Source History Provided By: Patient - Past Medical History VISCOSITY TESTER: Yes: Vertigo Cardio/Vascular: Yes: CAD Pulmonary: Yes: COPD Endocrine: Yes: Diabetes Mellitus - Past Surgical History Past Surgical History: Yes: Arthrosocopy (Rt knee surgery in her 20s secondary to chrondomalacia), CABG - Alcohol/Substance Use Hx Alcohol Use: No History of Substance Use: reports: None - Smoking History Smoking history: Never smoked Have you smoked in the past 12 months: No Aproximately how many cigarettes per day: 0 If you are a former smoker, when did you quit?: 18 yrs ago - Social History Usual Living Arrangement: Other (adult children) ADL: Independent Occupation: [employer] In[employer] Home Medications - Allergies Allergies/Adverse Reactions: Allergies Allergy/AdvReac Type Severity Reaction Status Date / Time Penicillins Allergy Severe RESPIRATORY Verified 03/23/19 18:18 DISTRESS prednisone AdvReac Severe disorientat Verified 03/23/19 18:18 ion gluten AdvReac Verified 03/26/19 09:04 morphine AdvReac disorientat Verified 03/23/19 18:18 ion BETA BLOCKERS Allergy Severe SEVERE Uncoded 03/22/19 17:55 HYPOTENSION - Home Medications Home Medications: Ambulatory Orders Aspirin Coated [Ecotrin -] 81 mg PO DAILY #30 tablet.ec 05/22/16 Glimepiride [Amaryl -] 3 mg PO DAILY@0700 #30 tablet 05/22/16 Cetirizine HCl [Zyrtec -] 10 mg PO HS 02/03/19 Fluticasone Prop 0.05% Nasal [Flonase -] 1 - 2 spray NS DAILY 02/03/19 Aspirin Coated [Ecotrin -] 81 mg PO DAILY tablet.ec 03/31/19 Bacitracin - [Bacitracin Topical Ointment -] 1 applic TP DAILY tube 03/31/19 Calcium Acetate [Phoslo -] 1,334 mg PO TIDCM #180 capsule 03/31/19 Ferrous Sulfate [Feosol] 325 mg PO DAILY ud 03/31/19 Isosorbide Mononitrate [Imdur -] 30 mg PO DAILY #90 tab.sr.24h 03/31/19 Pramoxine HCl/Calamine [Caladryl -] 1 applic TP BID #0 bottle 03/31/19 Ropinirole HCl [Requip -] 0.5 mg PO HS #30 tablet 03/31/19 Review of Systems - Review of Systems Constitutional: reports: Malaise HENT: reports: No Symptoms Neck: reports: No Symptoms Cardiovascular: reports: Shortness of Breath Respiratory: reports: SOB Gastrointestinal: reports: No Symptoms Musculoskeletal: reports: No Symptoms Integumentary: reports: Other (See HPI) Physical Exam Vital Signs: Vital Signs Temperature 98.3 F 04/02/19 18:00 Pulse Rate 86 04/02/19 18:00 Respiratory Rate 18 04/02/19 18:00 Blood Pressure 137/69 04/02/19 18:00 O2 Sat by Pulse Oximetry (%) 98 04/01/19 21:00 Constitutional: Yes: Mild Distress Eyes: Yes: Cataracts HENT: Yes: WNL Neck: Yes: WNL Cardiovascular: Yes: Other (2/4 systolic murmur LSB) Respiratory: Yes: Other (Few crackles in bases) Gastrointestinal: Yes: WNL Musculoskeletal: Yes: Other (Mild tennderness in knees. No active joints in hands.) Integumentary: Yes: Other (Erythematous linear rash in abdomen.) Labs: CBC, BMP 03/31/19 08:50 03/31/19 08:50 Laboratory Tests 03/22/19 03/23/19 03/23/19 23:50 06:30 06:30 Hemoglobin A1c % Calcium Magnesium Total Bilirubin AST ALT Alkaline Phosphatase Total Protein Albumin Urine pH 5.0 Ur Specific [place] 1.013 Urine Protein 2+ H Urine Glucose (UA) Negative Urine Ketones Negative Urine Blood 1+ H Urine Nitrite Negative Urine Bilirubin Negative Urine Urobilinogen 0.2 Ur Leukocyte Esterase 3+ H Urine WBC (Auto) 442 Urine Casts (Auto) 30 YINA M-Ryan Not observed HAIDER Screen Negative c-ANCA <1:20 Proteinase 3 (PR3) <3.5 p-ANCA <1:20 Atypical p-ANCA <1:20 Myeloperoxidase Ab <9.0 Double Strand DNA Ab <1 Glomerular Base Memb Ab 5 Complement C3 Complement C4 Free [place] LC, Quant Free Lambda LC, Quant Free [place]/Lambda Ratio 03/23/19 03/30/19 03/31/19 18:00 12:34 08:50 Hemoglobin A1c % 5.8 Calcium 8.5 Magnesium 2.3 Total Bilirubin 1.5 H AST 33 ALT 29 Alkaline Phosphatase 133 H Total Protein 5.2 L Albumin 2.8 L Urine pH Ur Specific [place] Urine Protein Urine Glucose (UA) Urine Ketones Urine Blood Urine Nitrite Urine Bilirubin Urine Urobilinogen Ur Leukocyte Esterase Urine WBC (Auto) Urine Casts (Auto) YINA M-Ryan HAIDER Screen c-ANCA Proteinase 3 (PR3) p-ANCA Atypical p-ANCA Myeloperoxidase Ab Double Strand DNA Ab Glomerular Base Memb Ab Complement C3 59 L Complement C4 14 Free [place] LC, Quant Free Lambda LC, Quant Free [place]/Lambda Ratio 03/31/19 16:55 Hemoglobin A1c % Calcium Magnesium Total Bilirubin AST ALT Alkaline Phosphatase Total Protein Albumin Urine pH Ur Specific [place] Urine Protein Urine Glucose (UA) Urine Ketones Urine Blood Urine Nitrite Urine Bilirubin Urine Urobilinogen Ur Leukocyte Esterase Urine WBC (Auto) Urine Casts (Auto) YINA M-Ryan HAIDER Screen c-ANCA Proteinase 3 (PR3) p-ANCA Atypical p-ANCA Myeloperoxidase Ab Double Strand DNA Ab Glomerular Base Memb Ab Complement C3 Complement C4 Free [place] LC, Quant 74.0 H Free Lambda LC, Quant 61.7 H Free [place]/Lambda Ratio 1.20 Problem List - Problems (1) Hypocomplementemia Assessment/Plan: The patient was admitted with significant progression of chronic kidney disease that improved during the hospitalization. She has baseline chronic kidney disease probably related to diabetes and no clinical changes suggestive of CTD. Progression of CKD could be related to significant CHF. No clear explanation for low C3. Most likely she does not have CTD. Plan: Repeat UA, and once management at [facility] is completed, repeat complement and other serology. Code(s): D84.1 - DEFECTS IN THE COMPLEMENT SYSTEM
[2019-04-02] MEDS: ALBUTEROL SO4 2.5/IPRATROPIUM 0.5 INH SOL 3 ML VIAL.NEB. NEB PRN (19:50)
[2019-04-02] MEDS: ALPRAZolam 0.25 MG TABLET PO PRN (22:26)
[2019-04-02] MEDS: LORATADINE 10 MG TABLET PO SCH (22:26)
[2019-04-02] MEDS: MELATONIN 1 MG TABLET PO SCH (22:27)
[2019-04-02] MEDS: rOPINIRole HCL 0.5 MG TABLET PO SCH (22:28)
[2019-04-03] MEDS: HEPARIN NA (PORCINE) 5,000 UNITS/ML 1ML VIAL SQ SCH ×3 (06:11→21:10)
[2019-04-03] MEDS: CALCIUM ACETATE 667 MG CAPSULE (FP) PO SCH ×3 (08:33→17:16)
[2019-04-03] MEDS: ISOSORBIDE MONONITRATE 30 MG TAB.SR.24H (FP) PO SCH (09:30)
[2019-04-03] MEDS: MULTIVITAMINS THER W-MINERALS COMBO TABLET (FP) PO SCH (09:30)
[2019-04-03] MEDS: FERROUS SO4 325 MG TABLET (FP) PO SCH (09:30)
[2019-04-03] MEDS: ASPIRIN COATED 81 MG TABLET.EC PO SCH (09:30)
[2019-04-03] MEDS: BACITRACIN 15 GM TUBE TOPICAL OINTMENT TP SCH (09:31)
[2019-04-03] MEDS: THIAMINE HCL 100 MG TABLET (FP) PO SCH (09:31)
[2019-04-03] MEDS: POLYETHYLENE GLYCOL 3350 119 GM BTL PO SCH (09:32)
[2019-04-03] MEDS: PRAMOXINE HCL/CALAMINE 177 ML LOTION TP SCH ×2 (09:32→21:11)
--- NOTE | 2019-04-03 10:14 | PN ---
Progress Note, Physician History of Present Illness: pulmonary alert,comfortable at rest ,+ mitchell,-cp,cough - Current Medication List Current Medications: Active Medications Acetaminophen (Tylenol -) 650 mg PO Q6H PRN PRN Reason: Fever Or Pain Albuterol/Ipratropium (Duoneb -) 1 amp NEB Q6H PRN PRN Reason: SHORTNESS OF BREATH Last Admin: 04/02/19 19:50 Dose: 1 amp Alprazolam (Xanax -) 0.25 mg PO DAILY@2200 PRN PRN Reason: ANXIETY Last Admin: 04/02/19 22:26 Dose: 0.25 mg Aspirin (Ecotrin -) 81 mg PO DAILY [facility] Last Admin: 04/03/19 09:30 Dose: 81 mg Bacitracin (Bacitracin -) 1 applic TP DAILY [facility] Last Admin: 04/03/19 09:31 Dose: 1 applic Calcium Acetate (Phoslo -) 1,334 mg PO TIDCM [facility] Last Admin: 04/03/19 08:33 Dose: 1,334 mg Diphenhydramine/Calamine/Camphor (Caladryl -) 1 applic TP BID [facility] Last Admin: 04/03/19 09:32 Dose: 1 applic Fentanyl (Sublimaze Injection -) 25 mcg IVPUSH [id number] PRN PRN Reason: PAIN-PACU ORDER X 4 DOSES ONLY Ferrous Sulfate (Feosol -) 325 mg PO DAILY [facility] Last Admin: 04/03/19 09:30 Dose: 325 mg Heparin Sodium (Porcine) (Heparin -) 5,000 unit SQ TID [facility] Last Admin: 04/03/19 06:11 Dose: 5,000 unit Hydroxyzine Pamoate (Vistaril -) 25 mg PO Q8H PRN PRN Reason: FOR ITCHING Sodium Chloride (Normal Saline -) 250 mls @ 3,000 mls/hr IV PRN PRN PRN Reason: Hypotension during Dialysis Stop: 04/02/19 09:11 Sodium Chloride (Normal Saline -) 250 mls @ 3,000 mls/hr IV PRN PRN PRN Reason: Hypotension during Dialysis Stop: 04/02/19 09:13 Isosorbide Mononitrate (Imdur -) 30 mg PO DAILY [facility] Last Admin: 04/03/19 09:30 Dose: 30 mg Loratadine (Claritin -) 10 mg PO [facility] Last Admin: 04/02/19 22:26 Dose: 10 mg Melatonin (Melatonin) 3 mg PO [facility] Last Admin: 04/02/19 22:27 Dose: Not Given Multivitamins/Minerals (Theragran-M) 1 each PO DAILY [facility] Last Admin: 04/03/19 09:30 Dose: 1 each Polyethylene Glycol (Miralax (For Daily Use) -) 17 gm PO DAILY [facility] Last Admin: 04/03/19 09:32 Dose: Not Given Prochlorperazine Edisylate (Compazine Injection -) 5 mg IM Q4H PRN PRN Reason: NAUSEA AND/OR VOMITING Last Admin: 03/26/19 16:29 Dose: 5 mg Ropinirole HCl (Requip -) 0.5 mg PO [facility] Stop: 04/03/19 23:04 Last Admin: 04/02/19 22:28 Dose: 0.5 mg Thiamine HCl (Vitamin B1 -) 100 mg PO DAILY [facility] Last Admin: 04/03/19 09:31 Dose: 100 mg - Objective Vital Signs: Vital Signs Temperature 97.0 F L 04/03/19 08:39 Pulse Rate 82 04/03/19 08:39 Respiratory Rate 16 04/03/19 08:39 Blood Pressure 117/48 L 04/03/19 08:39 O2 Sat by Pulse Oximetry (%) 92 L 04/02/19 21:00 Constitutional: Yes: Well Nourished, Calm Eyes: Yes: WNL HENT: Yes: WNL Neck: Yes: WNL Cardiovascular: Yes: Regular Rate and Rhythm, S1, S2 Respiratory: Yes: Rales (bibasilar rales) Gastrointestinal: Yes: Normal Bowel Sounds, Soft Extremities: Yes: WNL Edema: Yes Labs: CBC, BMP 03/31/19 08:50 03/31/19 08:50 INR, PTT INR 1.39 (0.83-1.09) H 03/23/19 05:30 - ....Imaging Chest X-ray: Image Reviewed Problem List - Problems (1) Uremic pruritus Code(s): L29.9 - PRURITUS, UNSPECIFIED (2) COPD (chronic obstructive pulmonary disease) Code(s): J44.9 - CHRONIC OBSTRUCTIVE PULMONARY DISEASE, UNSPECIFIED (3) Dyspnea Code(s): R06.00 - DYSPNEA, UNSPECIFIED (4) Iehra-nn-yptpbgf kidney injury Code(s): N17.9 - ACUTE KIDNEY FAILURE, UNSPECIFIED; N18.9 - CHRONIC KIDNEY DISEASE, UNSPECIFIED (5) CHF (congestive heart failure) Code(s): I50.9 - HEART FAILURE, UNSPECIFIED (6) S/P CABG (coronary artery bypass graft) Code(s): Z95.1 - PRESENCE OF AORTOCORONARY BYPASS GRAFT (7) Troponin I above reference range Code(s): R79.89 - OTHER SPECIFIED ABNORMAL FINDINGS OF BLOOD CHEMISTRY Assessment/Plan IMP DYSPNEA IMPROVING ACUTE ON CHRONIC CHF IMPROVING ACUTE ON CHRONIC KIDNEY FAILURE SEVERE LV SYSTOLIC DYSFUNCTION + MYOCARDIAL PERFUSION SCAN DM COPD NOT IN ACUTE EXACERBATION ASHD S/P CABG + TROPONIN H/O TOBACCO USE LIKELY UREMIC PRURITIS IMPROVING PULMONARY HTN SEVERE MR PLAN HD PER RENAL O2 MONITOR LYTES,RENAL FUNCTION F/U CHEST X-RAYS CARDIAC CATH NEXT WEEK DR CHUA Problem List - Problems (1) Uremic pruritus Code(s): L29.9 - PRURITUS, UNSPECIFIED (2) COPD (chronic obstructive pulmonary disease) Code(s): J44.9 - CHRONIC OBSTRUCTIVE PULMONARY DISEASE, UNSPECIFIED (3) Dyspnea Code(s): R06.00 - DYSPNEA, UNSPECIFIED (4) Hvshw-xi-bwamrts kidney injury Code(s): N17.9 - ACUTE KIDNEY FAILURE, UNSPECIFIED; N18.9 - CHRONIC KIDNEY DISEASE, UNSPECIFIED (5) CHF (congestive heart failure) Code(s): I50.9 - HEART FAILURE, UNSPECIFIED (6) S/P CABG (coronary artery bypass graft) Code(s): Z95.1 - PRESENCE OF AORTOCORONARY BYPASS GRAFT (7) Troponin I above reference range Code(s): R79.89 - OTHER SPECIFIED ABNORMAL FINDINGS OF BLOOD CHEMISTRY
[2019-04-03 11:02] LABS: EPI CELLS 23.9 /HPF (0-5/HPF); HYALINE CASTS 7 /lpf (0-8); URINE APPEARANCE CLOUDY; URINE BACTERIA 40.6 /hpf (NEGATIVE); URINE BILIRUBIN NEGATIVE (NEGATIVE); URINE COLOR DK YELLOW; URINE GLUCOSE (UA) NEGATIVE (NEGATIVE); URINE KETONE TRACE (NEGATIVE); URINE LEUK ESTERASE 3+ (NEGATIVE); URINE NITRITE NEGATIVE (NEGATIVE); URINE PROTEIN 2+ (NEGATIVE); URINE UROBILINOGEN 0.2 mg/dL (0.2-1.0); URINE WBC 192 /hpf (0-5)
[2019-04-03 11:17] LABS: HEMATOCRIT 29.2 % (32.4-45.2); HEMOGLOBIN 9.2 GM/dL (10.7-15.3); MCHC 31.4 g/dl (32.0-36.0); MEAN CELL VOLUME 95.6 fl (80-96); MEAN PLT VOLUME 8.1 fl (7.5-11.1); PLATELET COUNT 128 K/MM3 (134-434); RBC 3.06 M/mm3 (3.60-5.2); RDW 21.4 % (11.6-15.6); WHITE BLOOD COUNT 7.6 K/mm3 (4.0-10.0)
[2019-04-03 11:43] LABS: ALBUMIN 2.9 g/dl (3.4-5.0); BLOOD UREA NITROGEN 34.1 mg/dL (7-18); CALCIUM 8.2 mg/dL (8.5-10.1); CREATININE 4.2 mg/dL (0.55-1.3); PHOSPHOROUS 3.3 mg/dL (2.5-4.9); POTASSIUM 3.7 mmol/L (3.5-5.1); TOT PROT 5.1 g/dl (6.4-8.2)
[2019-04-03 11:46] LABS: URINE RBC 0-4 /hpf (0-4); YEAST NEGATIVE (NEGATIVE)
[2019-04-03] MEDS ORDERED: FUROSEMIDE 40 MG/4 ML INJECTABLE VIAL IVPUSH ONE (15:31)
--- NOTE | 2019-04-03 15:31 | PN ---
Progress Note, Physician History of Present Illness: Pt seen and examined at bedside. She is awake and alert. She complains of lower ext edema. She denies chest pain or shortness of breath. - Current Medication List Current Medications: Active Medications Acetaminophen (Tylenol -) 650 mg PO Q6H PRN PRN Reason: Fever Or Pain Albuterol/Ipratropium (Duoneb -) 1 amp NEB Q6H PRN PRN Reason: SHORTNESS OF BREATH Last Admin: 04/02/19 19:50 Dose: 1 amp Alprazolam (Xanax -) 0.25 mg PO DAILY@2200 PRN PRN Reason: ANXIETY Last Admin: 04/02/19 22:26 Dose: 0.25 mg Aspirin (Ecotrin -) 81 mg PO DAILY [facility] Last Admin: 04/03/19 09:30 Dose: 81 mg Bacitracin (Bacitracin -) 1 applic TP DAILY [facility] Last Admin: 04/03/19 09:31 Dose: 1 applic Calcium Acetate (Phoslo -) 1,334 mg PO TIDCM [facility] Last Admin: 04/03/19 12:14 Dose: 1,334 mg Diphenhydramine/Calamine/Camphor (Caladryl -) 1 applic TP BID [facility] Last Admin: 04/03/19 09:32 Dose: 1 applic Fentanyl (Sublimaze Injection -) 25 mcg IVPUSH [id number] PRN PRN Reason: PAIN-PACU ORDER X 4 DOSES ONLY Ferrous Sulfate (Feosol -) 325 mg PO DAILY [facility] Last Admin: 04/03/19 09:30 Dose: 325 mg Heparin Sodium (Porcine) (Heparin -) 5,000 unit SQ TID [facility] Last Admin: 04/03/19 13:47 Dose: 5,000 unit Hydroxyzine Pamoate (Vistaril -) 25 mg PO Q8H PRN PRN Reason: FOR ITCHING Sodium Chloride (Normal Saline -) 250 mls @ 3,000 mls/hr IV PRN PRN PRN Reason: Hypotension during Dialysis Stop: 04/02/19 09:11 Sodium Chloride (Normal Saline -) 250 mls @ 3,000 mls/hr IV PRN PRN PRN Reason: Hypotension during Dialysis Stop: 04/02/19 09:13 Isosorbide Mononitrate (Imdur -) 30 mg PO DAILY [facility] Last Admin: 04/03/19 09:30 Dose: 30 mg Loratadine (Claritin -) 10 mg PO HS [facility] Last Admin: 04/02/19 22:26 Dose: 10 mg Melatonin (Melatonin) 3 mg PO HS [facility] Last Admin: 04/02/19 22:27 Dose: Not Given Multivitamins/Minerals (Theragran-M) 1 each PO DAILY [facility] Last Admin: 04/03/19 09:30 Dose: 1 each Polyethylene Glycol (Miralax (For Daily Use) -) 17 gm PO DAILY [facility] Last Admin: 04/03/19 09:32 Dose: Not Given Prochlorperazine Edisylate (Compazine Injection -) 5 mg IM Q4H PRN PRN Reason: NAUSEA AND/OR VOMITING Last Admin: 03/26/19 16:29 Dose: 5 mg Ropinirole HCl (Requip -) 0.5 mg PO HS [facility] Stop: 04/03/19 23:04 Last Admin: 04/02/19 22:28 Dose: 0.5 mg Thiamine HCl (Vitamin B1 -) 100 mg PO DAILY [facility] Last Admin: 04/03/19 09:31 Dose: 100 mg - Objective Vital Signs: Vital Signs Temperature 97.0 F L 04/03/19 08:39 Pulse Rate 82 04/03/19 08:39 Respiratory Rate 16 04/03/19 08:39 Blood Pressure 117/48 L 04/03/19 08:39 O2 Sat by Pulse Oximetry (%) 94 L 04/03/19 09:00 Constitutional: Yes: Calm Eyes: Yes: Conjunctiva Clear HENT: Yes: Atraumatic Neck: Yes: Supple Cardiovascular: Yes: S1, S2 Respiratory: Yes: CTA Bilaterally Gastrointestinal: Yes: Soft Genitourinary: Yes: WNL Musculoskeletal: Yes: WNL Edema: Yes Edema: LLE: 2+, RLE: 2+ Integumentary: Yes: Petechiae Neurological: Yes: Oriented Labs: CBC, BMP 04/03/19 11:00 04/03/19 11:00 INR, PTT INR 1.39 (0.83-1.09) H 03/23/19 05:30 Assessment/Plan Current Medications Generic Name Dose Route Start Last Admin Trade Name Freq PRN Reason Stop Dose Admin Acetaminophen 650 mg 03/28/19 08:22 Tylenol - PO Q6H PRN Fever Or Pain Albuterol/Ipratropium 1 amp 03/23/19 17:50 04/02/19 19:50 Duoneb - NEB 1 amp Q6H PRN Administration SHORTNESS OF BREATH Alprazolam 0.25 mg 03/27/19 22:00 04/02/19 22:26 Xanax - PO 0.25 mg DAILY@2200 PRN Administration ANXIETY Aspirin 81 mg 03/25/19 10:00 04/03/19 09:30 Ecotrin - PO 81 mg DAILY [facility] Administration Bacitracin 1 applic 03/24/19 10:00 04/03/19 09:31 Bacitracin - TP 1 applic DAILY [facility] Administration Calcium Acetate 1,334 mg 03/23/19 17:30 04/03/19 12:14 Phoslo - PO 1,334 mg TIDCM [facility] Administration Diphenhydramine/Calamine/Camphor 1 applic 03/23/19 22:00 04/03/19 09:32 Caladryl - TP 1 applic BID [facility] Administration Fentanyl 25 mcg 03/23/19 15:56 Sublimaze Injection - IVPUSH [id number] PRN PAIN-PACU ORDER X 4 DOSES ONLY Ferrous Sulfate 325 mg 03/30/19 14:45 04/03/19 09:30 Feosol - PO 325 mg DAILY [facility] Administration Heparin Sodium (Porcine) 5,000 unit 03/23/19 22:00 04/03/19 13:47 Heparin - SQ 5,000 unit TID [facility] Administration Hydroxyzine Pamoate 25 mg 03/23/19 15:56 Vistaril - PO Q8H PRN FOR ITCHING Sodium Chloride 250 mls @ 3,000 mls/hr 04/01/19 09:11 Normal Saline - IV 04/02/19 09:11 PRN PRN Hypotension during Dialysis Sodium Chloride 250 mls @ 3,000 mls/hr 04/01/19 09:12 Normal Saline - IV 04/02/19 09:13 PRN PRN Hypotension during Dialysis Isosorbide Mononitrate 30 mg 03/25/19 10:00 04/03/19 09:30 Imdur - PO 30 mg DAILY [facility] Administration Loratadine 10 mg 03/26/19 22:00 04/02/19 22:26 Claritin - PO 10 mg HS [facility] Administration Melatonin 3 mg 03/27/19 22:00 04/02/19 22:27 Melatonin PO Not Given HS [facility] Multivitamins/Minerals 1 each 03/24/19 10:00 04/03/19 09:30 Theragran-M PO 1 each DAILY [facility] Administration Polyethylene Glycol 17 gm 03/27/19 14:00 04/03/19 09:32 Miralax (For Daily Use) - PO Not Given DAILY [facility] Prochlorperazine Edisylate 5 mg 03/23/19 15:56 03/26/19 16:29 Compazine Injection - IM 5 mg Q4H PRN Administration NAUSEA AND/OR VOMITING Ropinirole HCl 0.5 mg 03/31/19 23:05 04/02/19 22:28 Requip - PO 04/03/19 23:04 0.5 mg HS [facility] Administration Thiamine HCl 100 mg 03/24/19 10:00 04/03/19 09:31 Vitamin B1 - PO 100 mg DAILY [facility] Administration Impression 1. CKD with YVES 2. CHF 3. DM 4. HTN 5. hyperlipidemia 6. nephrotic range proteinuria 7. CAD 8. elevated troponin 9. hyponatremia 10. esrd 11. positive stress test 12. thrombocytopenia Plan - HD tomorrow - rhuem input appreciated - pt pending transfer for cardiac cath - will give a dose of lasix - restrict fluid intake, discussed with pt - renal diet
[2019-04-03] MEDS ORDERED: SODIUM CHLORIDE 250 ML IV PRN (15:32)
--- NOTE | 2019-04-03 17:05 | EKG ---
Test Reason : Blood Pressure : / mmHG Vent. Rate : 074 BPM Atrial Rate : 074 BPM P-R Int : 166 ms QRS Dur : 104 ms QT Int : 450 ms P-R-T Axes : 056 -10 149 degrees QTc Int : 499 ms NORMAL SINUS RHYTHM INFERIOR INFARCT (CITED ON OR BEFORE 08-FEB-2015) POSSIBLE ANTERIOR INFARCT (CITED ON OR BEFORE 19-MAY-2016) ABNORMAL ECG Confirmed by LUPE FERNANDEZ MD ([id number]) on 04/03/2019 5:05:05 PM Referred By: Trent STARR Confirmed By:LUPE FERNANDEZ MD
[2019-04-03] MEDS: ALBUTEROL SO4 2.5/IPRATROPIUM 0.5 INH SOL 3 ML VIAL.NEB. NEB PRN (20:10)
[2019-04-03] MEDS ORDERED: PT OWN MED DRAWER 7, Y5N ONE (21:03)
[2019-04-03] MEDS: LORATADINE 10 MG TABLET PO SCH (21:10)
[2019-04-03] MEDS: ALPRAZolam 0.25 MG TABLET PO PRN (21:10)
[2019-04-03] MEDS: MELATONIN 1 MG TABLET PO SCH (21:11)
[2019-04-03] MEDS: rOPINIRole HCL 0.5 MG TABLET PO SCH (21:11)
[2019-04-04] MEDS: HEPARIN NA (PORCINE) 5,000 UNITS/ML 1ML VIAL SQ SCH ×2 (05:55→14:46)
[2019-04-04] MEDS: CALCIUM ACETATE 667 MG CAPSULE (FP) PO SCH ×2 (08:20→12:49)
--- NOTE | 2019-04-04 10:23 | PN ---
Progress Note (short form) - Note Progress Note: Patient not been transferred because approval is still pending. Arrangements for transfer are in place. Resting comfortably, no exertional dyspnea, paroxysmal nocturnal dyspnea or orthopnea, undergoing dialysis. No history of palpitations, lightheadedness, dizziness presyncope or syncope. Lexiscan revealed an inferolateral wall infarct with марина-infarct ischemia. Severe LV systolic dysfunction and EF was reported to be 13%. Echo also revealed severe mitral and tricuspid regurgitation with severe left ventricular systolic dysfunction. P Active Medications Generic Name Dose Route Start Last Admin Trade Name Freq PRN Reason Stop Dose Admin Acetaminophen 650 mg 03/28/19 08:22 Tylenol - PO Q6H PRN Fever Or Pain Albuterol/Ipratropium 1 amp 03/23/19 17:50 04/03/19 20:10 Duoneb - NEB 1 amp Q6H PRN Administration SHORTNESS OF BREATH Aspirin 81 mg 03/25/19 10:00 04/03/19 09:30 Ecotrin - PO 81 mg DAILY [facility] Administration Bacitracin 1 applic 03/24/19 10:00 04/03/19 09:31 Bacitracin - TP 1 applic DAILY [facility] Administration Calcium Acetate 667 mg 04/03/19 15:31 04/04/19 08:20 Phoslo - PO 667 mg TIDCM [facility] Administration Diphenhydramine/Calamine/Camphor 1 applic 03/23/19 22:00 04/03/19 21:11 Caladryl - TP 1 applic BID [facility] Administration Fentanyl 25 mcg 03/23/19 15:56 Sublimaze Injection - IVPUSH [id number] PRN PAIN-PACU ORDER X 4 DOSES ONLY Ferrous Sulfate 325 mg 03/30/19 14:45 04/03/19 09:30 Feosol - PO 325 mg DAILY [facility] Administration Heparin Sodium (Porcine) 5,000 unit 03/23/19 22:00 04/04/19 05:55 Heparin - SQ 5,000 unit TID [facility] Administration Hydroxyzine Pamoate 25 mg 03/23/19 15:56 Vistaril - PO Q8H PRN FOR ITCHING Sodium Chloride 250 mls @ 3,000 mls/hr 04/03/19 15:32 Normal Saline - IV 04/04/19 15:32 PRN PRN Hypotension during Dialysis Isosorbide Mononitrate 30 mg 03/25/19 10:00 04/03/19 09:30 Imdur - PO 30 mg DAILY [facility] Administration Loratadine 10 mg 03/26/19 22:00 04/03/19 21:10 Claritin - PO 10 mg HS [facility] Administration Melatonin 3 mg 03/27/19 22:00 04/03/19 21:11 Melatonin PO Not Given HS [facility] Multivitamins/Minerals 1 each 03/24/19 10:00 04/03/19 09:30 Theragran-M PO 1 each DAILY [facility] Administration Polyethylene Glycol 17 gm 03/27/19 14:00 04/03/19 09:32 Miralax (For Daily Use) - PO Not Given DAILY [facility] Prochlorperazine Edisylate 5 mg 03/23/19 15:56 03/26/19 16:29 Compazine Injection - IM 5 mg Q4H PRN Administration NAUSEA AND/OR VOMITING Thiamine HCl 100 mg 03/24/19 10:00 04/03/19 09:31 Vitamin B1 - PO 100 mg DAILY [facility] Administration 59-year-old female was in no acute distress, pallor 1+, no cyanosis, clubbing or jaundice. Last Vital Signs Temp Pulse Resp BP Pulse Ox 97.2 F L 85 18 132/65 94 L 04/04/19 08:19 04/04/19 10:00 04/04/19 10:00 04/04/19 10:00 04/03/19 21:00 Intake & Output 04/01/19 04/02/19 04/03/19 04/04/19 23:59 23:59 23:59 23:59 Intake Total 1590 1440 820 320 Output Total 2800 Balance -1210 1440 820 320 Weight 82.282 kg 83.733 kg NECK: Supple, 1+jugular venous distention, +ve hepatojugular reflux , carotids were 2+, upstrokes were normal, no bruits were heard. HEART: PMI is the fifth intercostal space, no heaves or thrills, S1 and S2 were normal, grade II/ decrescendo systolic murmur was heard at the apex and left sternal border. No diastolic murmur or gallops were heard.. LUNGS: Decreased breath sounds at the bases. No extraneous sounds were heard. ABDOMEN:, Soft, nontender, no hepatosplenomegaly, no palpable masses. EXTREMITIES: No calf tenderness 2+ bilateral lower extremity dependent edema. CBC, BMP 04/03/19 11:00 04/03/19 11:00 IMRESSIONS: 1. Congestive heart failure NYHA II 2. Recent elevated troponin levels, etiology: a). Related to acute renal failure. b): Congestive heart failure. c). Ischemic heart disease/NSTEMI 3. Diabetes mellitus, poorly controlled. 4. Coronary artery disease,status post myocardial infarction, status post status post CABG. 5. Severe LV systolic dysfunction with severe reduction of LVEF. 6. Severe mitral regurgitation 7. Severe tricuspid regurgitation. 8. Anemia. 9. Poor compliance. 10. Hypercholesterolemia. RECOMMENDATIONS: 1. Carvedilol starting at 3.125 mg by mouth every 12 hours under close monitoring of blood pressure and heart rate and titrate. 2. Awaiting transfer to [facility] for further testing including cardiac catheterization and evaluation for an ICD insertion. 3. Risk modifications. 4. Increase ambulation. Prognosis: Guarded. TOY PEDRO MD; F.A.C.C.
--- NOTE | 2019-04-04 11:06 | PN ---
Progress Note, Physician History of Present Illness: PULMONARY ALERT,COMFORTABLE,BREATHING BETTER - Current Medication List Current Medications: Active Medications Acetaminophen (Tylenol -) 650 mg PO Q6H PRN PRN Reason: Fever Or Pain Albuterol/Ipratropium (Duoneb -) 1 amp NEB Q6H PRN PRN Reason: SHORTNESS OF BREATH Last Admin: 04/03/19 20:10 Dose: 1 amp Aspirin (Ecotrin -) 81 mg PO DAILY [facility] Last Admin: 04/03/19 09:30 Dose: 81 mg Bacitracin (Bacitracin -) 1 applic TP DAILY [facility] Last Admin: 04/03/19 09:31 Dose: 1 applic Calcium Acetate (Phoslo -) 667 mg PO TIDCM [facility] Last Admin: 04/04/19 08:20 Dose: 667 mg Carvedilol (Coreg -) 3.125 mg PO BID [facility] Carvedilol (Coreg -) 3.125 mg PO ONCE ONE Stop: 04/04/19 11:00 Diphenhydramine/Calamine/Camphor (Caladryl -) 1 applic TP BID [facility] Last Admin: 04/03/19 21:11 Dose: 1 applic Fentanyl (Sublimaze Injection -) 25 mcg IVPUSH [id number] PRN PRN Reason: PAIN-PACU ORDER X 4 DOSES ONLY Ferrous Sulfate (Feosol -) 325 mg PO DAILY [facility] Last Admin: 04/03/19 09:30 Dose: 325 mg Heparin Sodium (Porcine) (Heparin -) 5,000 unit SQ TID [facility] Last Admin: 04/04/19 05:55 Dose: 5,000 unit Hydroxyzine Pamoate (Vistaril -) 25 mg PO Q8H PRN PRN Reason: FOR ITCHING Sodium Chloride (Normal Saline -) 250 mls @ 3,000 mls/hr IV PRN PRN PRN Reason: Hypotension during Dialysis Stop: 04/04/19 15:32 Isosorbide Mononitrate (Imdur -) 30 mg PO DAILY [facility] Last Admin: 04/03/19 09:30 Dose: 30 mg Loratadine (Claritin -) 10 mg PO HS [facility] Last Admin: 04/03/19 21:10 Dose: 10 mg Melatonin (Melatonin) 3 mg PO HS [facility] Last Admin: 04/03/19 21:11 Dose: Not Given Multivitamins/Minerals (Theragran-M) 1 each PO DAILY [facility] Last Admin: 04/03/19 09:30 Dose: 1 each Polyethylene Glycol (Miralax (For Daily Use) -) 17 gm PO DAILY [facility] Last Admin: 04/03/19 09:32 Dose: Not Given Prochlorperazine Edisylate (Compazine Injection -) 5 mg IM Q4H PRN PRN Reason: NAUSEA AND/OR VOMITING Last Admin: 03/26/19 16:29 Dose: 5 mg Thiamine HCl (Vitamin B1 -) 100 mg PO DAILY [facility] Last Admin: 04/03/19 09:31 Dose: 100 mg - Objective Vital Signs: Vital Signs Temperature 97.2 F L 04/04/19 08:19 Pulse Rate 85 04/04/19 10:20 Respiratory Rate 18 04/04/19 10:20 Blood Pressure 160/71 04/04/19 10:20 O2 Sat by Pulse Oximetry (%) 94 L 04/03/19 21:00 Constitutional: Yes: Well Nourished, Calm Eyes: Yes: WNL HENT: Yes: WNL Neck: Yes: WNL Cardiovascular: Yes: Regular Rate and Rhythm, S1, S2 Respiratory: Yes: Diminished Gastrointestinal: Yes: Normal Bowel Sounds, Soft Extremities: Yes: WNL Edema: Yes Labs: CBC, BMP Problem List - Problems (1) Uremic pruritus Code(s): L29.9 - PRURITUS, UNSPECIFIED (2) COPD (chronic obstructive pulmonary disease) Code(s): J44.9 - CHRONIC OBSTRUCTIVE PULMONARY DISEASE, UNSPECIFIED (3) Dyspnea Code(s): R06.00 - DYSPNEA, UNSPECIFIED (4) Prtli-tq-kxnlbel kidney injury Code(s): N17.9 - ACUTE KIDNEY FAILURE, UNSPECIFIED; N18.9 - CHRONIC KIDNEY DISEASE, UNSPECIFIED (5) CHF (congestive heart failure) Code(s): I50.9 - HEART FAILURE, UNSPECIFIED (6) S/P CABG (coronary artery bypass graft) Code(s): Z95.1 - PRESENCE OF AORTOCORONARY BYPASS GRAFT (7) Troponin I above reference range Code(s): R79.89 - OTHER SPECIFIED ABNORMAL FINDINGS OF BLOOD CHEMISTRY Assessment/Plan IMP DYSPNEA IMPROVING ACUTE ON CHRONIC CHF IMPROVING ACUTE ON CHRONIC KIDNEY FAILURE SEVERE LV SYSTOLIC DYSFUNCTION + MYOCARDIAL PERFUSION SCAN DM COPD NOT IN ACUTE EXACERBATION ASHD S/P CABG + TROPONIN H/O TOBACCO USE LIKELY UREMIC PRURITIS IMPROVING PULMONARY HTN SEVERE MR PLAN HD PER RENAL O2 MONITOR LYTES,RENAL FUNCTION F/U CHEST X-RAYS CARDIAC CATH DR CHUA Problem List - Problems (1) Uremic pruritus Code(s): L29.9 - PRURITUS, UNSPECIFIED (2) COPD (chronic obstructive pulmonary disease) Code(s): J44.9 - CHRONIC OBSTRUCTIVE PULMONARY DISEASE, UNSPECIFIED (3) Dyspnea Code(s): R06.00 - DYSPNEA, UNSPECIFIED (4) Hebaz-iw-jnjpypi kidney injury Code(s): N17.9 - ACUTE KIDNEY FAILURE, UNSPECIFIED; N18.9 - CHRONIC KIDNEY DISEASE, UNSPECIFIED (5) CHF (congestive heart failure) Code(s): I50.9 - HEART FAILURE, UNSPECIFIED (6) S/P CABG (coronary artery bypass graft) Code(s): Z95.1 - PRESENCE OF AORTOCORONARY BYPASS GRAFT (7) Troponin I above reference range Code(s): R79.89 - OTHER SPECIFIED ABNORMAL FINDINGS OF BLOOD CHEMISTRY
--- NOTE | 2019-04-04 11:11 | PN ---
Physical Exam: SUBJECTIVE: Patient seen and examined at bedside. pt for d/c [facility]. OBJECTIVE: cardiology had a detailed discussion with patient regarding further evaluation at [facility] for cardiac catheterization and for possible ICD placement. She was been accepted by Dr. Henning. Patient is a 58 year old female with a significant past medical history of diabetic retinopathy, DM, CAD s/p CABG (4 vessel, 2014) and CHF. She presents to the ED for worsening shortness of breath and malaise and found to have elevated creatinine of 8 and started on dialysis. She also reported a rash that started 2 weeks ago after being scratched by her cat. Rash was reported to be priutirc and spreading. She had a biopsy done, results still pending per dermatology office. Called dermatology office last week, results still pending , fax no provided at [employer] office. Patient underwent a stress test with the following results: Lexiscan with moderate ischemia and LVEF 14% patient to be transferred to [facility] cardiac cath. She had dialysis today. Vital Signs Period Temp Pulse Resp BP Sys/Horowitz Pulse Ox Last 24 Hr 97.2 F-98.0 F 67-96 18-18 109-182/44-108 94 GENERAL: The patient is awake, alert, and fully oriented, in no acute distress. HEAD: Normal with no signs of trauma. EYES: PERRL, extraocular movements intact, sclera anicteric, conjunctiva clear. No ptosis. ENT: Ears normal, nares patent, oropharynx clear without exudates, moist mucous membranes. NECK: Trachea midline, full range of motion, supple. LUNGS: Breath sounds equal, clear to auscultation bilaterally, no wheezes HEART: Regular rate and rhythm ABDOMEN: Soft, nontender, nondistended, normoactive bowel sounds, no guarding EXTREMITIES: +2 tight pitting edema equally bilaterally. NEUROLOGICAL: Normal speech, gait not observed. PSYCH: Normal mood, normal affect. Laboratory Results - last 24 hr 04/03/19 04/03/19 04/03/19 09:15 11:00 11:00 WBC 7.6 RBC 3.06 L Hgb 9.2 L Hct 29.2 L MCV 95.6 MCH 30.0 MCHC 31.4 L RDW 21.4 H Plt Count 128 L MPV 8.1 Sodium 131 L Potassium 3.7 Chloride 93 L Carbon Dioxide 30 Anion Gap 8 BUN 34.1 H Creatinine 4.2 H Est GFR (CKD-EPI)AfAm 12.60 Est GFR (CKD-EPI)NonAf 10.87 Random Glucose 162 H Calcium 8.2 L Phosphorus 3.3 Total Bilirubin 1.0 AST 15 ALT 23 Alkaline Phosphatase 115 Total Protein 5.1 L Albumin 2.9 L Urine RBC (Auto) 0-4 Urine Yeast (Auto) Negative Active Medications Generic Name Dose Route Start Last Admin Trade Name Freq PRN Reason Stop Dose Admin Acetaminophen 650 mg 03/28/19 08:22 Tylenol - PO Q6H PRN Fever Or Pain Albuterol/Ipratropium 1 amp 03/23/19 17:50 04/03/19 20:10 Duoneb - NEB 1 amp Q6H PRN Administration SHORTNESS OF BREATH Aspirin 81 mg 03/25/19 10:00 04/03/19 09:30 Ecotrin - PO 81 mg DAILY DEANNA Administration Bacitracin 1 applic 03/24/19 10:00 04/03/19 09:31 Bacitracin - TP 1 applic DAILY DEANNA Administration Calcium Acetate 667 mg 04/03/19 15:31 04/04/19 08:20 Phoslo - PO 667 mg TIDCM DEANNA Administration Carvedilol 3.125 mg 04/04/19 22:00 Coreg - PO BID DEANNA Carvedilol 3.125 mg 04/04/19 10:59 Coreg - PO 04/04/19 11:00 ONCE ONE Diphenhydramine/Calamine/Camphor 1 applic 03/23/19 22:00 04/03/19 21:11 Caladryl - TP 1 applic BID DEANNA Administration Fentanyl 25 mcg 03/23/19 15:56 Sublimaze Injection - IVPUSH [id number] PRN PAIN-PACU ORDER X 4 DOSES ONLY Ferrous Sulfate 325 mg 03/30/19 14:45 04/03/19 09:30 Feosol - PO 325 mg DAILY DEANNA Administration Heparin Sodium (Porcine) 5,000 unit 03/23/19 22:00 04/04/19 05:55 Heparin - SQ 5,000 unit TID DEANNA Administration Hydroxyzine Pamoate 25 mg 03/23/19 15:56 Vistaril - PO Q8H PRN FOR ITCHING Sodium Chloride 250 mls @ 3,000 mls/hr 04/03/19 15:32 Normal Saline - IV 04/04/19 15:32 PRN PRN Hypotension during Dialysis Isosorbide Mononitrate 30 mg 03/25/19 10:00 04/03/19 09:30 Imdur - PO 30 mg DAILY DEANNA Administration Loratadine 10 mg 03/26/19 22:00 04/03/19 21:10 Claritin - PO 10 mg HS DEANNA Administration Melatonin 3 mg 03/27/19 22:00 04/03/19 21:11 Melatonin PO Not Given HS DEANNA Multivitamins/Minerals 1 each 03/24/19 10:00 04/03/19 09:30 Theragran-M PO 1 each DAILY DEANNA Administration Polyethylene Glycol 17 gm 03/27/19 14:00 04/03/19 09:32 Miralax (For Daily Use) - PO Not Given DAILY DEANNA Prochlorperazine Edisylate 5 mg 03/23/19 15:56 03/26/19 16:29 Compazine Injection - IM 5 mg Q4H PRN Administration NAUSEA AND/OR VOMITING Thiamine HCl 100 mg 03/24/19 10:00 04/03/19 09:31 Vitamin B1 - PO 100 mg DAILY DEANNA Administration ASSESSMENT/PLAN: Problem List - Problems (1) ESRD (end stage renal disease) on dialysis Assessment/Plan: tolerated dialysis. for [facility] today for cardiac cath. patient to receive dialysis on Thursday at [facility] Code(s): N18.6 - END STAGE RENAL DISEASE; Z99.2 - DEPENDENCE ON RENAL DIALYSIS (2) Anemia due to chronic kidney disease Assessment/Plan: s/p 1 unit of prbc. monitor cbc daily and maintain hmg 8> for cardiac disease Code(s): N18.9 - CHRONIC KIDNEY DISEASE, UNSPECIFIED; D63.1 - ANEMIA IN CHRONIC KIDNEY DISEASE (3) COPD (chronic obstructive pulmonary disease) Assessment/Plan: duo nebs prn supplemental O2 as needed appreciated pulmonary consultation Code(s): J44.9 - CHRONIC OBSTRUCTIVE PULMONARY DISEASE, UNSPECIFIED (4) Dyspnea Assessment/Plan: tolerating room air, with 2 liters prn Code(s): R06.00 - DYSPNEA, UNSPECIFIED (5) Troponin I above reference range Assessment/Plan: troponins elevated peaked at 2.6 and trended to 1.77. stress test shows LVEF of 13% with moderate ischemia Echo also revealed severe mitral and tricuspid regurgitation with severe left ventricular systolic dysfunction. patient for transfer to [facility] cardiac bolt labeler Code(s): R79.89 - OTHER SPECIFIED ABNORMAL FINDINGS OF BLOOD CHEMISTRY (6) Diabetes mellitus, insulin dependent (IDDM), uncontrolled Assessment/Plan: a1c stable glucose not elevated, continue to monitor. Code(s): E10.65 - TYPE 1 DIABETES MELLITUS WITH HYPERGLYCEMIA (7) Hyponatremia Assessment/Plan: improving with fluid restriction, monitor electrolytes daily Code(s): E87.1 - HYPO-OSMOLALITY AND HYPONATREMIA (8) Hyperphosphatemia Code(s): E83.39 - OTHER DISORDERS OF PHOSPHORUS METABOLISM (9) Hypocalcemia Assessment/Plan: monitor with daily labs Code(s): E83.51 - HYPOCALCEMIA (10) CHF (congestive heart failure) Assessment/Plan: TTE LV fx severly reduced, global hypokinesis had stress test which shows moderate ischemia and severely reduced lvef, for transfer to cardiac bolt labeler today Code(s): I50.9 - HEART FAILURE, UNSPECIFIED (11) Coronary artery disease Assessment/Plan: CAD s/p CABG (4 vessel, 2014) asa 81 daily-given elevated troponins can not hold asa for proposed renal bx TTE noted above, lexiscan as noted above Code(s): I25.10 - ATHSCL HEART DISEASE OF [place] CORONARY ARTERY W/O ANG PCTRS Qualifiers: Coronary Disease-Associated Artery/Lesion type: [place] artery Elim [place] vs. transplanted heart: [place] heart Associated angina: without angina Qualified Code(s): I25.10 - Atherosclerotic heart disease of [place] coronary artery without angina pectoris (12) Pyuria Code(s): R82.81 - PYURIA (13) Rash and nonspecific skin eruption Code(s): R21 - RASH AND OTHER NONSPECIFIC SKIN ERUPTION (14) Prophylactic measure Code(s): Z29.9 - ENCOUNTER FOR PROPHYLACTIC MEASURES, UNSPECIFIED Visit type - Emergency Visit Emergency Visit: Yes ED Registration Date: 03/22/19 Care time: The patient presented to the Emergency Department on the above date and was hospitalized for further evaluation of their emergent condition. - New Patient This patient is new to me today: No - Critical Care Critical Care patient: No - Discharge Referral Referred to [facility] Med P.C.: No
[2019-04-04] MEDS: MULTIVITAMINS THER W-MINERALS COMBO TABLET (FP) PO SCH (11:25)
[2019-04-04] MEDS: ISOSORBIDE MONONITRATE 30 MG TAB.SR.24H (FP) PO SCH (11:26)
[2019-04-04] MEDS: FERROUS SO4 325 MG TABLET (FP) PO SCH (11:26)
[2019-04-04] MEDS: ASPIRIN COATED 81 MG TABLET.EC PO SCH (11:27)
[2019-04-04] MEDS: BACITRACIN 15 GM TUBE TOPICAL OINTMENT TP SCH (11:27)
[2019-04-04] MEDS: PRAMOXINE HCL/CALAMINE 177 ML LOTION TP SCH (11:27)
[2019-04-04] MEDS: POLYETHYLENE GLYCOL 3350 119 GM BTL PO SCH (11:28)
[2019-04-04] MEDS: THIAMINE HCL 100 MG TABLET (FP) PO SCH (11:28)
--- NOTE | 2019-04-04 11:44 | PN ---
Progress Note, Physician History of Present Illness: Pt seen and examined at bedside. She is awake and alert. She denies shortness of breath. She tolerated HD. - Current Medication List Current Medications: Active Medications Acetaminophen (Tylenol -) 650 mg PO Q6H PRN PRN Reason: Fever Or Pain Albuterol/Ipratropium (Duoneb -) 1 amp NEB Q6H PRN PRN Reason: SHORTNESS OF BREATH Last Admin: 04/03/19 20:10 Dose: 1 amp Aspirin (Ecotrin -) 81 mg PO DAILY [facility] Last Admin: 04/04/19 11:27 Dose: 81 mg Bacitracin (Bacitracin -) 1 applic TP DAILY [facility] Last Admin: 04/04/19 11:27 Dose: 1 applic Calcium Acetate (Phoslo -) 667 mg PO TIDCM [facility] Last Admin: 04/04/19 08:20 Dose: 667 mg Carvedilol (Coreg -) 3.125 mg PO BID [facility] Carvedilol (Coreg -) 3.125 mg PO ONCE ONE Stop: 04/04/19 11:00 Diphenhydramine/Calamine/Camphor (Caladryl -) 1 applic TP BID [facility] Last Admin: 04/04/19 11:27 Dose: 1 applic Fentanyl (Sublimaze Injection -) 25 mcg IVPUSH [id number] PRN PRN Reason: PAIN-PACU ORDER X 4 DOSES ONLY Ferrous Sulfate (Feosol -) 325 mg PO DAILY [facility] Last Admin: 04/04/19 11:26 Dose: 325 mg Heparin Sodium (Porcine) (Heparin -) 5,000 unit SQ TID [facility] Last Admin: 04/04/19 05:55 Dose: 5,000 unit Hydroxyzine Pamoate (Vistaril -) 25 mg PO Q8H PRN PRN Reason: FOR ITCHING Sodium Chloride (Normal Saline -) 250 mls @ 3,000 mls/hr IV PRN PRN PRN Reason: Hypotension during Dialysis Stop: 04/04/19 15:32 Isosorbide Mononitrate (Imdur -) 30 mg PO DAILY [facility] Last Admin: 04/04/19 11:26 Dose: 30 mg Loratadine (Claritin -) 10 mg PO HS [facility] Last Admin: 04/03/19 21:10 Dose: 10 mg Melatonin (Melatonin) 3 mg PO HS [facility] Last Admin: 11/17/19 21:11 Dose: Not Given Multivitamins/Minerals (Theragran-M) 1 each PO DAILY DEANNA Last Admin: 04/04/19 11:25 Dose: 1 each Polyethylene Glycol (Miralax (For Daily Use) -) 17 gm PO DAILY DEANNA Last Admin: 04/04/19 11:28 Dose: Not Given Prochlorperazine Edisylate (Compazine Injection -) 5 mg IM Q4H PRN PRN Reason: NAUSEA AND/OR VOMITING Last Admin: 03/26/19 16:29 Dose: 5 mg Thiamine HCl (Vitamin B1 -) 100 mg PO DAILY DEANNA Last Admin: 04/04/19 11:28 Dose: 100 mg - Objective Vital Signs: Vital Signs Temperature 97.2 F L 04/04/19 08:19 Pulse Rate 85 04/04/19 10:20 Respiratory Rate 18 04/04/19 10:20 Blood Pressure 160/71 04/04/19 10:20 O2 Sat by Pulse Oximetry (%) 94 L 04/03/19 21:00 Constitutional: Yes: Calm Eyes: Yes: Conjunctiva Clear HENT: Yes: Atraumatic Neck: Yes: Supple Cardiovascular: Yes: S1, S2 Respiratory: Yes: CTA Bilaterally Gastrointestinal: Yes: Soft Genitourinary: Yes: WNL Musculoskeletal: Yes: WNL Edema: Yes Edema: LLE: 2+, RLE: 2+ Neurological: Yes: Oriented Psychiatric: Yes: Oriented Labs: CBC, BMP 04/03/19 11:00 04/03/19 11:00 INR, PTT INR 1.39 (0.83-1.09) H 03/23/19 05:30 Assessment/Plan Current Medications Generic Name Dose Route Start Last Admin Trade Name Freq PRN Reason Stop Dose Admin Acetaminophen 650 mg 03/28/19 08:22 Tylenol - PO Q6H PRN Fever Or Pain Albuterol/Ipratropium 1 amp 03/23/19 17:50 04/03/19 20:10 Duoneb - NEB 1 amp Q6H PRN Administration SHORTNESS OF BREATH Aspirin 81 mg 03/25/19 10:00 04/04/19 11:27 Ecotrin - PO 81 mg DAILY DEANNA Administration Bacitracin 1 applic 03/24/19 10:00 04/04/19 11:27 Bacitracin - TP 1 applic DAILY DEANNA Administration Calcium Acetate 667 mg 04/03/19 15:31 04/04/19 08:20 Phoslo - PO 667 mg TIDCM DEANNA Administration Carvedilol 3.125 mg 04/04/19 22:00 Coreg - PO BID DEANNA Carvedilol 3.125 mg 04/04/19 10:59 Coreg - PO 04/04/19 11:00 ONCE ONE Diphenhydramine/Calamine/Camphor 1 applic 03/23/19 22:00 04/04/19 11:27 Caladryl - TP 1 applic BID DEANNA Administration Fentanyl 25 mcg 03/23/19 15:56 Sublimaze Injection - IVPUSH [id number] PRN PAIN-PACU ORDER X 4 DOSES ONLY Ferrous Sulfate 325 mg 03/30/19 14:45 04/04/19 11:26 Feosol - PO 325 mg DAILY DEANNA Administration Heparin Sodium (Porcine) 5,000 unit 03/23/19 22:00 04/04/19 05:55 Heparin - SQ 5,000 unit TID DEANNA Administration Hydroxyzine Pamoate 25 mg 03/23/19 15:56 Vistaril - PO Q8H PRN FOR ITCHING Sodium Chloride 250 mls @ 3,000 mls/hr 04/03/19 15:32 Normal Saline - IV 04/04/19 15:32 PRN PRN Hypotension during Dialysis Isosorbide Mononitrate 30 mg 03/25/19 10:00 04/04/19 11:26 Imdur - PO 30 mg DAILY DEANNA Administration Loratadine 10 mg 03/26/19 22:00 04/03/19 21:10 Claritin - PO 10 mg HS DEANNA Administration Melatonin 3 mg 03/27/19 22:00 04/03/19 21:11 Melatonin PO Not Given HS DEANNA Multivitamins/Minerals 1 each 03/24/19 10:00 04/04/19 11:25 Theragran-M PO 1 each DAILY DEANNA Administration Polyethylene Glycol 17 gm 03/27/19 14:00 04/04/19 11:28 Miralax (For Daily Use) - PO Not Given DAILY DEANNA Prochlorperazine Edisylate 5 mg 03/23/19 15:56 03/26/19 16:29 Compazine Injection - IM 5 mg Q4H PRN Administration NAUSEA AND/OR VOMITING Thiamine HCl 100 mg 03/24/19 10:00 04/04/19 11:28 Vitamin B1 - PO 100 mg DAILY DEANNA Administration Impression 1. CKD with YVES 2. CHF 3. DM 4. HTN 5. hyperlipidemia 6. nephrotic range proteinuria 7. CAD 8. elevated troponin 9. hyponatremia 10. esrd 11. positive stress test 12. thrombocytopenia Plan - HD today - pending transfer for cath - discussed with cardio - restrict fluid intake, discussed with pt - renal diet
[2019-04-04] MEDS ORDERED: CARVEDILOL 3.125 MG TABLET (FP) PO ONE (12:00)
[2019-04-04 12:38] LABS: BASO % 0.7 % (0-2.0); EOS % 1.1 % (0-4.5); HEMATOCRIT 30.4 % (32.4-45.2); HEMOGLOBIN 9.5 GM/dL (10.7-15.3); LYMPH % 13.7 % (8-40); MCHC 31.2 g/dl (32.0-36.0); MEAN CELL VOLUME 96.1 fl (80-96); MONO % 12.1 % (3.8-10.2); NEUT % 72.4 % (42.8-82.8); PLATELET COUNT 112 K/MM3 (134-434); RBC 3.17 M/mm3 (3.60-5.2); RDW 21.9 % (11.6-15.6); WHITE BLOOD COUNT 6.1 K/mm3 (4.0-10.0)
[2019-04-04 13:11] LABS: ANISOCYTOSIS 2+; MACROCYTOSIS 1+; PLATELET ESTIMATE DECREASED
[2019-04-04 13:12] LABS: BILIRUBIN,TOTAL 1.3 mg/dL (0.2-1); BLOOD UREA NITROGEN 18.4 mg/dL (7-18); CALCIUM 8.7 mg/dL (8.5-10.1); CREATININE 2.6 mg/dL (0.55-1.3); POTASSIUM 3.2 mmol/L (3.5-5.1); TOT PROT 5.4 g/dl (6.4-8.2)
[2019-04-04 13:49] VITALS: BP 134/63; PULSE 84; TEMP 98.3
[2019-04-04 14:37] VITALS: BMI 29.7
[2019-04-04] MEDS ORDERED: POTASSIUM CHLORIDE TABS 20 MEQ TABLET.ER (FP) PO ONE (14:51)
[2019-04-04] MEDS ORDERED: CARVEDILOL 3.125 MG TABLET (FP) PO SCH ×2 (22:00)
== END 2019-04-04 16:48 | disposition short-term general hospital (02) | DRG 190 ==
LOC: JER 17:42 → J4S 20:45
PROVIDERS: ADMIT Internal Medicine; ATTEND Nurse Practitioner Family
PROC: 05HM33Z Insertion of Infusion Device into Right Internal Jugular Vein, Percutaneous Approach (ICD-10-PCS; 2019-03-23)
PROC: B513ZZA Fluoroscopy of Right Jugular Veins, Guidance (ICD-10-PCS; 2019-03-23)
PROC: 5A1D70Z Performance of Urinary Filtration, Intermittent, Less than 6 Hours Per Day (ICD-10-PCS; 2019-03-23)
PROC: 0JH63XZ Insertion of Tunneled Vascular Access Device into Chest Subcutaneous Tissue and Fascia, Percutaneous Approach (ICD-10-PCS; principal; 2019-03-23 15:30)
PROC: 5A1D70Z Performance of Urinary Filtration, Intermittent, Less than 6 Hours Per Day (ICD-10-PCS; 2019-03-25)
PROC: 5A1D70Z Performance of Urinary Filtration, Intermittent, Less than 6 Hours Per Day (ICD-10-PCS; 2019-03-28)
PROC: 5A1D70Z Performance of Urinary Filtration, Intermittent, Less than 6 Hours Per Day (ICD-10-PCS; 2019-03-30)
PROC: 5A1D70Z Performance of Urinary Filtration, Intermittent, Less than 6 Hours Per Day (ICD-10-PCS; 2019-04-01)
PROC: 5A1D70Z Performance of Urinary Filtration, Intermittent, Less than 6 Hours Per Day (ICD-10-PCS; 2019-04-04)
DX: I21.4 Non-ST elevation (NSTEMI) myocardial infarction (principal); J44.9 Chronic obstructive pulmonary disease, unspecified; I25.10 Atherosclerotic heart disease of native coronary artery without angina pectoris; N39.0 Urinary tract infection, site not specified; B95.1 Streptococcus, group B, as the cause of diseases classified elsewhere; E78.00 Pure hypercholesterolemia, unspecified; G25.81 Restless legs syndrome; E87.1 Hypo-osmolality and hyponatremia; R79.89 Other specified abnormal findings of blood chemistry; D84.1 Defects in the complement system; I24.8 Other forms of acute ischemic heart disease; I13.2 Hypertensive heart and chronic kidney disease with heart failure and with stage 5 chronic kidney disease, or end stage renal disease; E11.22 Type 2 diabetes mellitus with diabetic chronic kidney disease; N18.6 End stage renal disease; I50.23 Acute on chronic systolic (congestive) heart failure; N17.9 Acute kidney failure, unspecified; E87.2 Acidosis; F41.8 Other specified anxiety disorders; L29.9 Pruritus, unspecified; R82.81 Pyuria; I27.20 Pulmonary hypertension, unspecified; R21 Rash and other nonspecific skin eruption; E11.319 Type 2 diabetes mellitus with unspecified diabetic retinopathy without macular edema; I08.1 Rheumatic disorders of both mitral and tricuspid valves; E83.51 Hypocalcemia; D69.6 Thrombocytopenia, unspecified; E83.39 Other disorders of phosphorus metabolism; D63.1 Anemia in chronic kidney disease; Z88.0 Allergy status to penicillin; Z95.1 Presence of aortocoronary bypass graft
CPT/HCPCS: 36415; 36430; 36511; 71045-TC-FY; 71046-TC-FY; 76000-TC-FY; 76775-TC; 78452-TC; 80048; 80053; 80061; 81003; 82340; 82436; 82550; 82553; 82565; 82570; 82962; 83036; 83516; 83520; 83605; 83721; 83735; 83880; 83883; 83930; 83935; 84100; 84133; 84155; 84165; 84300; 84484; 85025; 85027; 85379; 85610; 85730; 86038; 86160; 86225; 86256; 86611; 86704; 86706; 86707; 86708; 86709; 86850; 86900; 86901; 86922; 87040; 87077; 87086; 87205; 87340; 87522; 93005; 93010; 93017; 93306-TC; 93970-TC; 94640; 94760; 97116-GP; 97161-GP; 99285-25; A9502; G0480; J0885; J1644; J2785; P9038; P9058; Q2036

== ENCOUNTER 2019-06-09 11:02 | Inpatient (IN) | payer OTHER ==
--- NOTE | 2019-06-09 11:28 | PDOC ---
History of Present Illness <DeliaBlossom Radha - Last Filed: 06/09/19 12:53> - History of Present Illness Initial Comments: The pt is a 59F w/ history of CAD s/p CABG, HF s/p AICD, DM, chronic left foot wound who presents for evaluation of an episode of lightheadedness and near- syncope while at wound care. A rapid was called. The pt was reportedly 60s/40s at that time. The pt was laid down and brought to the ED. The pt states she currently feels improved. Endorses several episodes of NBNB diarrhea yesterday She denies fevers/chills, SWENSON, vision changes, chest pain before/after, N/V, dysuria, changes in urination, rash. 06/09/19 11:23 <Varun Garcia - Last Filed: 06/09/19 15:25> - General Chief Complaint: Lightheaded Stated Complaint: DIZZINESS Time Seen by Provider: 06/09/19 11:07 Past History <DeliaBlossomsam Garcia - Last Filed: 06/09/19 12:53> - Past Medical History Anemia: No Asthma: No Cancer: No Cardiac Disorders: Yes (CAD) CVA: No COPD: No CHF: Yes Dementia: No Diabetes: Yes (x4 yrs ago) GI Disorders: No Disorders: No HTN: Yes Hypercholesterolemia: Yes Liver Disease: No Seizures: No Thyroid Disease: No - Surgical History Abdominal Surgery: No Appendectomy: No Cardiac Surgery: Yes (CABG 02/2015) Cholecystectomy: No Lung Surgery: No Neurologic Surgery: No Orthopedic Surgery: No - Immunization History Immunization Up to Date: No - Psycho Social/Smoking Cessation Hx Smoking Status: No Smoking History: Never smoked Have you smoked in the past 12 months: No Number of Cigarettes Smoked Daily: 0 If you are a former smoker, when did you quit?: 18 yrs ago Hx Alcohol Use: No Drug/Substance Use Hx: No Substance Use Type: None Hx Substance Use Treatment: No <Varun Garcia - Last Filed: 06/09/19 15:25> - Past Medical History Allergies/Adverse Reactions: Allergies Allergy/AdvReac Type Severity Reaction Status Date / Time Penicillins Allergy Severe RESPIRATORY Verified 03/23/19 18:18 DISTRESS prednisone AdvReac Severe disorientat Verified 03/23/19 18:18 ion gluten AdvReac Verified 03/26/19 09:04 morphine AdvReac disorientat Verified 03/23/19 18:18 ion BETA BLOCKERS Allergy Severe SEVERE Uncoded 03/22/19 17:55 HYPOTENSION Home Medications: Ambulatory Orders Cetirizine HCl [Zyrtec -] 10 mg PO HS 02/03/19 Fluticasone Prop 0.05% Nasal [Flonase -] 1 - 2 spray NS DAILY 02/03/19 Aspirin Coated [Ecotrin -] 81 mg PO DAILY tablet.ec 03/31/19 Ropinirole HCl [Requip -] 0.5 mg PO HS #30 tablet 03/31/19 Carvedilol [Coreg -] 3.125 mg PO BID tablet 04/04/19 Glimepiride [Amaryl -] 2 mg PO DAILY@0700 04/28/19 Collagenase Clostridium Hist. [Santyl -] 1 appful TP DAILY 05/19/19 Atorvastatin Calcium 80 mg PO DAILY 06/09/19 Lisinopril [Zestril] 2.5 mg PO DAILY 06/09/19 Melatonin [Melatin] 3 mg PO DAILY 06/09/19 Spironolactone 12.5 mg PO DAILY 06/09/19 Review of Systems - Review of Systems Able to Perform ROS?: Yes Comments:: GENERAL/CONSTITUTIONAL: No fever or chills HEAD, EYES, EARS, NOSE AND THROAT: No change in vision. No change in hearing. No sore throat CARDIOVASCULAR: No chest pain or shortness of breath RESPIRATORY: Denies cough, hemoptysis GASTROINTESTINAL: No nausea, vomiting, diarrhea or constipation GENITOURINARY: No dysuria, frequency, or change in urination MUSCULOSKELETAL: No joint or muscle swelling or pain. No neck or back pain SKIN: No rash NEUROLOGIC: No headache, or change in strength/sensation ENDOCRINE: No increased thirst. No abnormal weight change HEMATOLOGIC/LYMPHATIC: No anemia, easy bleeding, or history of blood clots ALLERGIC/IMMUNOLOGIC: No hives or skin allergy 06/09/19 11:26 Is the patient limited Cuban proficient: No <Varun Garcia - Last Filed: 06/09/19 15:25> *Physical Exam - Vital Signs Last Vital Signs Temp Pulse Resp BP Pulse Ox 97.5 F L 72 18 116/45 L 100 06/09/19 11:05 06/09/19 11:11 06/09/19 11:11 06/09/19 11:11 06/09/19 11:11 <Blossom Lin Radha - Last Filed: 06/09/19 12:53> - Vital Signs Last Vital Signs Temp Pulse Resp BP Pulse Ox 97.5 F L 72 18 116/45 L 100 06/09/19 11:05 06/09/19 11:11 06/09/19 11:11 06/09/19 11:11 06/09/19 11:11 - Physical Exam GENERAL: Awake, alert, and oriented to person/place/time, in no acute distress HEAD: No signs of trauma, normoc ephalic, atraumatic EYES: PERRLA, EOMI, sclera anicteric, conjunctiva clear ENT: Hearing grossly normal, nares patent, oropharynx clear without exudates. Moist mucosa LUNGS: No distress, speaks in full sentences, clear to auscultation bilaterally HEART: Regular rate and rhythm, normal S1 and S2, no murmurs appreciated, peripheral pulses normal and equal bilaterally CHEST: Left chest wall permacath in place w/o surrounding erythema; Left AICD palpated ABDOMEN: Soft, nontender, normoactive bowel sounds. No guarding, no rebound EXTREMITIES: Normal inspection, Normal range of motion, no edema. No clubbing or cyanosis NEUROLOGICAL: Cranial nerves II through XII grossly intact. Normal speech, no focal sensorimotor deficits SKIN: Warm, Dry 06/09/19 11:27 <Varun Garcia - Last Filed: 06/09/19 15:25> ED Treatment Course - LABORATORY CBC & Chemistry Diagram: 06/09/19 11:20 06/09/19 11:20 - ADDITIONAL ORDERS Additional order review: Laboratory Results 06/09/19 06/09/19 11:20 11:20 Sodium 139 Potassium 4.3 Chloride 104 Carbon Dioxide 23 Anion Gap 12 BUN 62.0 H Creatinine 8.7 H* Est GFR (CKD-EPI)AfAm 5.22 Est GFR (CKD-EPI)NonAf 4.51 Random Glucose 152 H Calcium 8.4 L Phosphorus 7.7 H Magnesium 1.8 Total Bilirubin 0.8 AST 26 ALT 15 Alkaline Phosphatase 172 H Troponin I 0.18 H Total Protein 5.8 L Albumin 2.4 L 06/09/19 11:20 RBC 3.50 L MCV 95.7 MCHC 32.0 RDW 17.6 H MPV 8.7 Neutrophils % 68.1 Lymphocytes % 10.4 Monocytes % 7.9 Eosinophils % 12.6 H D Basophils % 1.0 <Blossom Lin - Last Filed: 06/09/19 12:53> - LABORATORY CBC & Chemistry Diagram: 06/09/19 11:20 06/09/19 11:20 - RADIOLOGY Radiology Studies Ordered: Category Date Time Status CHEST X-RAY PORTABLE* [RAD] Stat Radiology 06/09/19 11:20 Ordered <Varun Garcia - Last Filed: 06/09/19 15:25> Medical Decision Making - Medical Decision Making The pt is a 59F w/ history of CAD s/p CABG, HF s/p AICD, DM, chronic left foot wound who presents for evaluation of an episode of lightheadedness and near- syncope while at wound care. ED Course CMP, CBC, Mg, Phos, Trop I CXR ECG 06/09/19 11:34 ECG w/ NSR; HR 71; TWI/depression in I and aVL noted in previous ECG, KEDAR III noted previously, prolonged QTc 515, abn ecg Case discussed with Dr. Fried and Dr. Salty KIRBY given -No indication for emergent iHD Troponinemia noted K wnl No leukocytosis No anemia Lytes unremarkable Cr elevated, ESRD LFTs unremarkable 06/09/19 14:48 Pt signed out to Dr. Reaves 06/09/19 15:22 <Varun Garcia - Last Filed: 06/09/19 15:25> Discharge - Discharge Information Problems reviewed: Yes <Blossom Lin - Last Filed: 06/09/19 12:53> - Discharge Information Problems reviewed: Yes - Admission Yes <Varun Garcia - Last Filed: 06/09/19 15:25> - Discharge Information Clinical Impression/Diagnosis: Vasovagal near syncope, Elevated troponin, S/P CABG (coronary artery bypass graft) Condition: Stable - Follow up/Referral Referrals: Eliud Kennedy MD [Primary Care Provider] -
[2019-06-09 11:43] LABS: EOS % 12.6 % (0-4.5); HEMATOCRIT 33.5 % (32.4-45.2); HEMOGLOBIN 10.7 GM/dL (10.7-15.3); LYMPH % 10.4 % (8-40); MCH 30.6 pg (25.7-33.7); MEAN CELL VOLUME 95.7 fl (80-96); MEAN PLT VOLUME 8.7 fl (7.5-11.1); MONO % 7.9 % (3.8-10.2); NEUT % 68.1 % (42.8-82.8); PLATELET COUNT 209 K/MM3 (134-434); RDW 17.6 % (11.6-15.6); WHITE BLOOD COUNT 11.3 K/mm3 (4.0-10.0)
[2019-06-09 12:31] LABS: ALBUMIN 2.4 g/dl (3.4-5.0); BILIRUBIN,TOTAL 0.8 mg/dL (0.2-1); CALCIUM 8.4 mg/dL (8.5-10.1); MAGNESIUM 1.8 mg/dL (1.8-2.4); PHOSPHOROUS 7.7 mg/dL (2.5-4.9); POTASSIUM 4.3 mmol/L (3.5-5.1); TOT PROT 5.8 g/dl (6.4-8.2)
[2019-06-09 12:44] LABS: CREATININE 8.7 mg/dL (0.55-1.3)
[2019-06-09] MEDS ORDERED: ASPIRIN 81 MG CHEWABLE TABLETS PO ONE (12:50)
--- NOTE | 2019-06-09 12:53 | PDOC ---
Attending Attestation - Resident Resident Name: Varun Garcia - ED Attending Attestation I have performed the following: I have examined & evaluated the patient, The case was reviewed & discussed with the resident, I agree w/resident's findings & plan - HPI HPI: 06/09/19 12:54 59F w/ history of CAD s/p CABG, HF s/p AICD, DM, chronic left foot wound who presents for evaluation of an episode of lightheadedness and near-syncope while at wound care. A rapid was called. The pt was reportedly 60s/40s at that time. multiple episodes of watery brown Diarrhea since yesterday, today with near syncopal episode at wound care center. - Physicial Exam PE: 06/09/19 12:50 Agree with the resident's HPI and PE as documented in the electronic medical record. NAD, well appearing, EOMI, PERRL, nl conjunctiva, anicteric; neck supple. lungs clear, RRR, +left chest wall defibrillator, right chest wall permacath. abdomen soft nontender. no rebound, guarding. Back nontender. LOTT x4, no focal neuro deficits. No peripheral edema. normal color for ethnicity, WWP. +left foot with chronic wound, dressings and sock in place. - Medical Decision Making 06/09/19 12:50 Vital Signs Temp Pulse Resp BP Pulse Ox 97.5 F L 72 18 116/45 L 100 06/09/19 11:05 06/09/19 11:11 06/09/19 11:11 06/09/19 11:11 06/09/19 11:11 DDx near syncope: ACS, coronary vasospasm, NSTEMI, arrhythmia, unstable angina, PE, dissection, PUD, esophageal spasm, GERD, gastritis, costochondritis, pneumonia, pleurisy, pericarditis/myocarditis. dehydration, electrolyte/ metabolic derangements. vasovagal, Considered but clinically doubt based on HPI and PE: Low suspicion for pulmonary embolism or dissection. pt likely dehydrated with viral syndrome, diarrhea since yesterday and sick contacts. hydrating, neuro intact here. no cp or sob. EKG normal sinus rhythm 71 bpm, no interval abnormalities, narrow QRS, ST and T wave segments and morphology normal. Nonspecific T wave abnormalities, with TWI in I, AVL and upsloping III, AVF, similar to prior trop elevated 0.18, has been higher before trend trop/ekg, patient monitor. ASA given. remainder of [employer] is wnl. near syncope could be hypovolemic/diarrhea, dehydration vs cardiogenic. cards cs with dr mercer, defib/ppm interrogation. nephro cs with Dr Pond given pt missed HD. Plan for admit tele observation for near syncope, to r/o ischemia, serial trops and EKG/tele monitoring. ASA administered, pain controlled, discussion with patient and family at bedside, made aware of impression and plan, questions answered. 06/09/19 14:23 Heart Score/ECG Review #1 ECG reviewed & interpreted by me at: 11:00 General ECG Interpretation: Sinus Rhythm, Normal Rate Compared to previous ECG there are: No significant change 06/09/19 12:51 EKG normal sinus rhythm 71 bpm, no interval abnormalities, narrow QRS, ST and T wave segments and morphology normal. Nonspecific T wave abnormalities, with TWI in I, AVL and upsloping III, AVF, similar to prior 11:00
[2019-06-09] MEDS ORDERED: ASPIRIN 81 MG CHEWABLE TABLETS ONE (13:37)
--- NOTE | 2019-06-09 13:47 | RAPID ---
<Jemal Denton - Last Filed: 06/09/19 14:08> Physical Examination Vital Signs: Vital Signs Temperature 97.5 F L 06/09/19 11:05 Pulse Rate 72 06/09/19 11:11 Respiratory Rate 18 06/09/19 11:11 Blood Pressure 116/45 L 06/09/19 11:11 O2 Sat by Pulse Oximetry (%) 100 06/09/19 11:11 Labs: CBC, BMP 06/09/19 11:20 06/09/19 11:20 Rapid Response - Rapid Response Assessment: Rapid response called at 10:45 to 5 west and the response team responded immediately. Call made 2/2 pt report of lightheaded/dizzy upon standing and BP of 45/28. Pt was leaving wound care and was sitting in her seated walker upon arrival. She states she was scared and wanted her son Sd, whom was present in the hallway as well. She did not fall, experience LOC, tongue biting, or have any tonic/clonic movements. She was not SOB, have CP, vomit, have visions changes, or have a SWENSON. Pt placed in stretcher. Repeat VS BP 129/41, HR 89, RR 22, O2 sat 98% on room air Pt a/o x3, NAD. Lungs CTAB with no adventitous sounds. Heat RRR s1 s2 no murmurs. Ab soft NT, ND + BS in 4 quadrants. CN II-XII intact with no focal deficits, stength 5/5 in upper and lower prox and distal extremeties. Patellar reflex 2+. Brachail reflex not appreciated. No glucometer available in unit, pt brought down to ED. ?vasovagal syncope - rapid resolution of BP and symptoms in ED ?orthostatic hypotension - pt denies blood loss, diarrhea, vomiting. Orthostatics not performed; pt brought to ED immediately. ?hypoglycemia - DM, had corn flakes for breakfast PCP: Dr. Kennedy Pt currently being assessed in ED <Sari Licea - Last Filed: 06/11/19 18:23> Physical Examination Vital Signs: Labs: CBC, BMP 06/09/19 11:20 06/10/19 07:30 Rapid Response - Rapid Response Assessment: Agree with above exam, and assessment. BGM was not checked as no glucometer was available immediately. patient son was updated and agreed to transfer to ER. Critical Care Total Critical Care Time (in minutes): 25
--- NOTE | 2019-06-09 15:25 | CON.CARD ---
Consult Consult Specialty:: Cardiology Referred by:: Medicine Reason for Consultation:: elevated trop - History of Present Illness Chief Complaint: dizziness History of Present Illness: 59F h/o CAD s/p CABG, chronic systolic HF s/p ICD, DM, ESRD on HD chronic L foot wound p/w near syncope at wound care. Patient of Dr. Fernández. She has been intermittently lightheaded for the last few weeks, notes 20 lbs of weight loss recently. Also had diarrhea yesterday and poor PO intake, missed HD yesterday. Today she felt very dizzy while at wound care, BP reportedly 60s/ 40s at the time, was lying down and brought to ED. Feels better now. No chest pain, palps, dyspnea, edema. Was started on spironolactone a few weeks ago by Dr. Fernández, she stopped this on her own due to leg pain. 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 Cardio/Vascular: Yes: CAD Pulmonary: Yes: COPD Endocrine: Yes: Diabetes Mellitus - Past Surgical History Past Surgical History: Yes: Arthrosocopy (Rt knee surgery in her 20s secondary to chrondomalacia), CABG - Alcohol/Substance Use Hx Alcohol Use: No History of Substance Use: reports: None - Smoking History Smoking history: Never smoked Have you smoked in the past 12 months: No Aproximately how many cigarettes per day: 0 If you are a former smoker, when did you quit?: 18 yrs ago - Social History Usual Living Arrangement: Other (adult children) ADL: Independent 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 Home Medications - Allergies Allergies/Adverse Reactions: Allergies Allergy/AdvReac Type Severity Reaction Status Date / Time Penicillins Allergy Severe RESPIRATORY Verified 03/23/19 18:18 DISTRESS prednisone AdvReac Severe disorientat Verified 03/23/19 18:18 ion gluten AdvReac Verified 03/26/19 09:04 morphine AdvReac disorientat Verified 03/23/19 18:18 ion BETA BLOCKERS Allergy Severe SEVERE Uncoded 03/22/19 17:55 HYPOTENSION - Home Medications Home Medications: Ambulatory Orders Cetirizine HCl [Zyrtec -] 10 mg PO HS 02/03/19 Fluticasone Prop 0.05% Nasal [Flonase -] 1 - 2 spray NS DAILY 02/03/19 Aspirin Coated [Ecotrin -] 81 mg PO DAILY tablet.ec 03/31/19 Ropinirole HCl [Requip -] 0.5 mg PO HS #30 tablet 03/31/19 Carvedilol [Coreg -] 3.125 mg PO BID tablet 04/04/19 Glimepiride [Amaryl -] 2 mg PO DAILY@0700 04/28/19 Collagenase Clostridium Hist. [Santyl -] 1 appful TP DAILY 05/19/19 Atorvastatin Calcium 80 mg PO DAILY 06/09/19 Lisinopril [Zestril] 2.5 mg PO DAILY 06/09/19 Melatonin [Melatin] 3 mg PO DAILY 06/09/19 Spironolactone 12.5 mg PO DAILY 06/09/19 Family Medical History Family History: Unremarkable Review of Systems - Review of Systems Constitutional: reports: No Symptoms Eyes: reports: No Symptoms HENT: reports: No Symptoms Neck: reports: No Symptoms Cardiovascular: reports: No Symptoms Respiratory: reports: No Symptoms Gastrointestinal: reports: No Symptoms Genitourinary: reports: No Symptoms Musculoskeletal: reports: No Symptoms Integumentary: reports: No Symptoms Neurological: reports: No Symptoms Endocrine: reports: No Symptoms Hematology/Lymphatic: reports: No Symptoms Psychiatric: reports: No Symptoms Vital Signs: Vital Signs Temperature 97.5 F L 06/09/19 11:05 Pulse Rate 70 06/09/19 13:50 Respiratory Rate 18 06/09/19 13:50 Blood Pressure 120/57 L 06/09/19 14:41 O2 Sat by Pulse Oximetry (%) 99 06/09/19 13:50 Constitutional: Yes: No Distress, Calm Eyes: Yes: Conjunctiva Clear, EOM Intact HENT: Yes: Atraumatic, Normocephalic Neck: Yes: Supple, Trachea Midline Respiratory: Yes: Regular, CTA Bilaterally Gastrointestinal: Yes: Normal Bowel Sounds, Soft Cardiovascular: Yes: Regular Rate and Rhythm JVD: No Heart Sounds: Yes: S1, S2 Extremities: No: Cold Edema: No Neurological: Yes: Alert, Oriented Psychiatric: No: Agitated - Other Data Labs, Other Data: CBC, BMP 06/09/19 11:20 06/09/19 11:20 Troponin, BNP 06/09/19 11:20 Troponin I 0.18 H Troponin, BNP 06/09/19 11:20 Troponin I 0.18 H Assessment/Plan EKG: sinus, nl intervals, nonspecific ST changes similar to prior echo 03/2019 tds, mod to sev MR, mild to mod ao sclerosis, severe TR, severely reduced LV function, RVSP >60 mmHg, LV/RV not well visualized, mild to mod AR mibi 03/2019 mod size inferolateral infarct with mild марина-infarct ischemia, global hypokinesis, EF 13% CXR: no acute process elevated trop - chronically elevated in setting of ESRD, CHF - EKG similar to prior, less likely ACS - trend trop to peak dizziness - vasovagal vs orthostatic in setting of recent diarrhea, also missed HD session yesterday - monitoring on tele chronic systolic HF, s/p ICD - appears euvolemic - volume management per renal - pt stopped spironolactone herself - continue carvedilol and lisinopril, dose adjustments limited by low BP in the past CAD s/p CABG - cont statin, aspirin, bb DM - manage per primary
--- NOTE | 2019-06-09 15:28 | CONSULT ---
Consult Consult Specialty:: Nephrology Reason for Consultation:: ESRD - History of Present Illness Chief Complaint: near syncope History of Present Illness: Pt is a 59 year old female with pmhx of cad, cabg, CHF, ESRD, and DM who presents after an episode of near syncope in wound care. She went to wound care for her left foot ulcer which she things is improving. She was found to be light headed and hypotensive. SHe had diarrhea all day yesterday which resolved. SHe did not go to HD secondary to the diarrhea. She feels better now. Her blood pressure is improved. 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 Cardio/Vascular: Yes: CAD Pulmonary: Yes: COPD Renal/: Yes: Renal Failure, Hemodialysis Endocrine: Yes: Diabetes Mellitus - Past Surgical History Past Surgical History: Yes: Arthrosocopy (Rt knee surgery in her 20s secondary to chrondomalacia), CABG - Alcohol/Substance Use Hx Alcohol Use: No History of Substance Use: reports: None - Smoking History Smoking history: Never smoked Have you smoked in the past 12 months: No Aproximately how many cigarettes per day: 0 If you are a former smoker, when did you quit?: 18 yrs ago - Social History Usual Living Arrangement: Other (adult children) ADL: Independent 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 Home Medications - Allergies Allergies/Adverse Reactions: Allergies Allergy/AdvReac Type Severity Reaction Status Date / Time Penicillins Allergy Severe RESPIRATORY Verified 03/23/19 18:18 DISTRESS prednisone AdvReac Severe disorientat Verified 03/23/19 18:18 ion gluten AdvReac Verified 03/26/19 09:04 morphine AdvReac disorientat Verified 03/23/19 18:18 ion BETA BLOCKERS Allergy Severe SEVERE Uncoded 03/22/19 17:55 HYPOTENSION - Home Medications Home Medications: Ambulatory Orders Cetirizine HCl [Zyrtec -] 10 mg PO HS 02/03/19 Fluticasone Prop 0.05% Nasal [Flonase -] 1 - 2 spray NS DAILY 02/03/19 Aspirin Coated [Ecotrin -] 81 mg PO DAILY tablet.ec 03/31/19 Ropinirole HCl [Requip -] 0.5 mg PO HS #30 tablet 03/31/19 Carvedilol [Coreg -] 3.125 mg PO BID tablet 04/04/19 Glimepiride [Amaryl -] 2 mg PO DAILY@0700 04/28/19 Collagenase Clostridium Hist. [Santyl -] 1 appful TP DAILY 05/19/19 Atorvastatin Calcium 80 mg PO DAILY 06/09/19 Lisinopril [Zestril] 2.5 mg PO DAILY 06/09/19 Melatonin [Melatin] 3 mg PO DAILY 06/09/19 Spironolactone 12.5 mg PO DAILY 06/09/19 Family Medical History Family History: Denies Review of Systems - Review of Systems Constitutional: reports: Malaise Eyes: reports: No Symptoms HENT: reports: No Symptoms Neck: reports: No Symptoms Cardiovascular: reports: No Symptoms Respiratory: reports: No Symptoms Gastrointestinal: reports: Diarrhea Genitourinary: reports: No Symptoms Musculoskeletal: reports: No Symptoms Integumentary: reports: No Symptoms Neurological: reports: No Symptoms Endocrine: reports: No Symptoms Hematology/Lymphatic: reports: No Symptoms Psychiatric: reports: No Symptoms Physical Exam Vital Signs: Vital Signs Temperature 97.5 F L 06/09/19 11:05 Pulse Rate 70 06/09/19 13:50 Respiratory Rate 18 06/09/19 13:50 Blood Pressure 120/57 L 06/09/19 14:41 O2 Sat by Pulse Oximetry (%) 99 06/09/19 13:50 Constitutional: Yes: Calm Eyes: Yes: Conjunctiva Clear HENT: Yes: Atraumatic Neck: Yes: Supple Cardiovascular: Yes: S1, S2 Respiratory: Yes: CTA Bilaterally Gastrointestinal: Yes: Soft Musculoskeletal: Yes: WNL Edema: No Neurological: Yes: Oriented Psychiatric: Yes: Oriented Labs: CBC, BMP 06/09/19 11:20 06/09/19 11:20 Assessment/Plan Impression 1. ESRD 2. CHF 3. DM 4. HTN 5. hyperlipidemia 6. nephrotic range proteinuria 7. CAD 8. elevated troponin 9. pre syncope Plan - will hold off HD today - HD tomorrow without UF - monitor bp - pt on MWF schedule - diarrhea has resolved
[2019-06-09] MEDS ORDERED: SODIUM CHLORIDE 250 ML IV PRN (19:45)
--- NOTE | 2019-06-09 20:19 | HP ---
59F h/o CAD s/p CABG, chronic systolic HF s/p ICD, DM, ESRD on HD chronic L foot wound p/w near syncope at wound care with reported low BP. 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 Pt. complains of dizziness for the past couple of weeks, riky. when she started having diarrhea for the past 1-2 days. She had diarrhea all day yesterday which resolved. She did not go to HD secondary to the diarrhea. Patient endorses going to her wound care clinic for her L foot ulcer (improving) , but then started feeling lightheaded (more than her usual). Denies CP/SOB/ syncope/chest pressure/difficulty breathing. BP in ER normalized and pt. felt better. Recent Travel: denies PAST MEDICAL HISTORY: as above PAST SURGICAL HISTORY: ICD, RUE perm-a-cath Social History: Smoking: former many years ago Alcohol: former Drugs: denies Allergies Penicillins Allergy (Severe, Verified 03/23/19 18:18) RESPIRATORY DISTRESS rash and difficulty breathing prednisone Adverse Reaction (Severe, Verified 03/23/19 18:18) disorientation gluten Adverse Reaction (Verified 03/26/19 09:04) morphine Adverse Reaction (Verified 03/23/19 18:18) disorientation BETA BLOCKERS Allergy (Severe, Uncoded 03/22/19 17:55) SEVERE HYPOTENSION HOME MEDICATIONS: Home Medications Medication Instructions Recorded Cetirizine HCl [Zyrtec -] 10 mg PO HS 02/03/19 Fluticasone Prop 0.05% Nasal 1 - 2 spray NS DAILY 02/03/19 [Flonase -] Aspirin Coated [Ecotrin -] 81 mg PO DAILY tablet.ec 03/31/19 Ropinirole HCl [Requip -] 0.5 mg PO HS #30 tablet 03/31/19 Carvedilol [Coreg -] 3.125 mg PO BID tablet 04/04/19 Glimepiride [Amaryl -] 2 mg PO DAILY@0700 04/28/19 Collagenase Clostridium Hist. 1 appful TP DAILY 05/19/19 [Santyl -] Atorvastatin Calcium 80 mg PO DAILY 06/09/19 Lisinopril [Zestril] 2.5 mg PO DAILY 06/09/19 Melatonin [Melatin] 3 mg PO DAILY 06/09/19 Spironolactone 12.5 mg PO DAILY 06/09/19 PHYSICAL EXAMINATION PE GA comfortable, AAox3, speaks in full sentences HEENT NC/AT, RUE perm-a-cath+ no fluctuance or discharge, LUE defibrillator+ no fluctuance or erythema, neck supple, no stridor Chest CTAB, no crackles or wheezing CVS S1, S2+, RRR Abd Soft, NT, ND, BS+, no guarding Ext No LE edema, no calf tenderness Vital Signs - 24 hr 06/09/19 06/09/19 06/09/19 11:05 11:07 11:11 Temperature 97.5 F L Pulse Rate Pulse Rate [ 72 72 Apical] Respiratory 18 18 Rate Blood Pressure 127/50 L Blood Pressure 116/45 L [Right Arm] O2 Sat by Pulse 98 100 Oximetry (%) 06/09/19 06/09/19 06/09/19 13:50 14:41 15:31 Temperature Pulse Rate Pulse Rate [ 70 68 Apical] Respiratory 18 20 Rate Blood Pressure Blood Pressure 120/57 L 124/38 L [Right Arm] O2 Sat by Pulse 99 98 Oximetry (%) 06/09/19 06/09/19 18:48 18:50 Temperature 97.6 F Pulse Rate 72 Pulse Rate [ 74 Apical] Respiratory 16 19 Rate Blood Pressure 124/54 L Blood Pressure 118/42 L [Right Arm] O2 Sat by Pulse 96 Oximetry (%) Laboratory Results - last 24 hr 06/09/19 06/09/19 06/09/19 11:20 11:20 11:20 WBC 11.3 H RBC 3.50 L Hgb 10.7 Hct 33.5 MCV 95.7 MCH 30.6 MCHC 32.0 RDW 17.6 H Plt Count 209 MPV 8.7 Absolute Neuts (auto) 7.7 Neutrophils % 68.1 Lymphocytes % 10.4 Monocytes % 7.9 Eosinophils % 12.6 H D Basophils % 1.0 Nucleated RBC % 0 Sodium 139 Potassium 4.3 Chloride 104 Carbon Dioxide 23 Anion Gap 12 BUN 62.0 H Creatinine 8.7 H* Est GFR (CKD-EPI)AfAm 5.22 Est GFR (CKD-EPI)NonAf 4.51 Random Glucose 152 H Calcium 8.4 L Phosphorus 7.7 H Magnesium 1.8 Total Bilirubin 0.8 AST 26 ALT 15 Alkaline Phosphatase 172 H Creatine Kinase Troponin I 0.18 H Total Protein 5.8 L Albumin 2.4 L 06/09/19 17:33 WBC RBC Hgb Hct MCV MCH MCHC RDW Plt Count MPV Absolute Neuts (auto) Neutrophils % Lymphocytes % Monocytes % Eosinophils % Basophils % Nucleated RBC % Sodium Potassium Chloride Carbon Dioxide Anion Gap BUN Creatinine Est GFR (CKD-EPI)AfAm Est GFR (CKD-EPI)NonAf Random Glucose Calcium Phosphorus Magnesium Total Bilirubin AST ALT Alkaline Phosphatase Creatine Kinase 35 Troponin I 0.16 H Total Protein Albumin Home Medications Medication Instructions Recorded Cetirizine HCl [Zyrtec -] 10 mg PO HS 02/03/19 Fluticasone Prop 0.05% Nasal 1 - 2 spray NS DAILY 02/03/19 [Flonase -] Aspirin Coated [Ecotrin -] 81 mg PO DAILY tablet.ec 03/31/19 Ropinirole HCl [Requip -] 0.5 mg PO HS #30 tablet 03/31/19 Carvedilol [Coreg -] 3.125 mg PO BID tablet 04/04/19 Glimepiride [Amaryl -] 2 mg PO DAILY@0700 04/28/19 Collagenase Clostridium Hist. 1 appful TP DAILY 05/19/19 [Santyl -] Atorvastatin Calcium 80 mg PO DAILY 06/09/19 Lisinopril [Zestril] 2.5 mg PO DAILY 06/09/19 Melatonin [Melatin] 3 mg PO DAILY 06/09/19 Spironolactone 12.5 mg PO DAILY 06/09/19 ASSESSMENT/PLAN: 59 F HFrEF (13% EF) s/p ICD, T2DM, ESRD on HD, chronic L foot ulcer (healing), w / report of near syncopal episode and low BP in wound care clinic. Patient appears clinically dry likely due to diarrhea and volume losses. Near syncope likely due to hypovolemia, diarrhea with HF medications resulted in transiently low BP, negative orthostatics at bedside PO hydration, and restart diet, no IVF for now in view of negative orthostatics and severely reduced systolic heart function Admit to tele, monitor overnight , fall risk Cardiology consult: Dr. 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 - New Patient This patient is new to me today: Yes Date on this admission: 06/09/19 - Critical Care Critical Care patient: No
[2019-06-09 20:53] VITALS: BMI 22.6
[2019-06-09] MEDS ORDERED: MELATONIN 1 MG TABLET PO SCH (22:37)
[2019-06-09] MEDS ORDERED: rOPINIRole HCL 0.5 MG TABLET PO SCH (22:41)
[2019-06-10] MEDS ORDERED: ACETAMINOPHEN 325 MG TABLET (FP) PO PRN (05:59)
[2019-06-10 09:58] LABS: BLOOD UREA NITROGEN 67.5 mg/dL (7-18); CALCIUM 7.8 mg/dL (8.5-10.1); MAGNESIUM 1.8 mg/dL (1.8-2.4); PHOSPHOROUS 8.1 mg/dL (2.5-4.9); POTASSIUM 4.4 mmol/L (3.5-5.1)
[2019-06-10 10:02] LABS: CREATININE 9.7 mg/dL (0.55-1.3)
--- NOTE | 2019-06-10 13:21 | PN ---
Physical Exam: SUBJECTIVE: Patient seen and examined OBJECTIVE: Vital Signs Period Temp Pulse Resp BP Sys/Horowitz Pulse Ox Last 24 Hr 97.6 F-98.9 F 68-90 16-20 116-153/38-83 96-99 GENERAL: The patient is awake, alert, and fully oriented, in no acute distress. HEAD: Normal with no signs of trauma. EYES: PERRL, extraocular movements intact, sclera anicteric, conjunctiva clear. No ptosis. ENT: Ears normal, nares patent, oropharynx clear without exudates, moist mucous membranes. NECK: Trachea midline, full range of motion, supple. LUNGS: Breath sounds equal, clear to auscultation bilaterally, no wheezes, no crackles, no accessory muscle use. HEART: Regular rate and rhythm, S1, S2 without murmur, rub or gallop. ABDOMEN: Soft, nontender, nondistended, normoactive bowel sounds, no guarding, no rebound, no hepatosplenomegaly, no masses. EXTREMITIES: 2+ pulses, warm, well-perfused, no edema. NEUROLOGICAL: Cranial nerves II through XII grossly intact. Normal speech, gait not observed. PSYCH: Normal mood, normal affect. SKIN: Warm, dry, normal turgor, no rashes or lesions noted Laboratory Results - last 24 hr 06/09/19 06/10/19 06/10/19 17:33 07:30 11:57 Sodium 140 Potassium 4.4 Chloride 106 Carbon Dioxide 18 L Anion Gap 16 BUN 67.5 H Creatinine 9.7 H* Est GFR (CKD-EPI)AfAm 4.58 Est GFR (CKD-EPI)NonAf 3.95 POC Glucometer 178 Random Glucose 80 Calcium 7.8 L Phosphorus 8.1 H Magnesium 1.8 Creatine Kinase 35 Troponin I 0.16 H Active Medications Generic Name Dose Route Start Last Admin Trade Name Freq PRN Reason Stop Dose Admin Acetaminophen 650 mg 06/10/19 05:59 06/10/19 06:23 Tylenol - PO 650 mg Q6H PRN Administration PAIN LEVEL 6-10 Aspirin 81 mg 06/10/19 13:30 Ecotrin - PO DAILY DEANNA Atorvastatin Calcium 80 mg 06/10/19 22:00 Lipitor - PO HS DEANNA Carvedilol 3.125 mg 06/10/19 13:30 Coreg - PO BID DEANNA Sodium Chloride 250 mls @ 3,000 mls/hr 06/09/19 19:45 Normal Saline - IV 06/10/19 19:45 PRN PRN Hypotension during Dialysis Lisinopril 2.5 mg 06/10/19 13:30 Prinivil PO DAILY DEANNA Melatonin 3 mg 06/09/19 22:37 06/09/19 22:52 Melatonin PO 3 mg HS DAENNA Administration Ropinirole HCl 0.5 mg 06/09/19 22:41 06/09/19 22:53 Requip - PO 0.5 mg HS DEANNA Administration ASSESSMENT/PLAN:
[2019-06-10] MEDS ORDERED: ASPIRIN COATED 81 MG TABLET.EC PO SCH (13:30)
[2019-06-10] MEDS ORDERED: CARVEDILOL 3.125 MG TABLET (FP) PO SCH (13:30)
[2019-06-10] MEDS ORDERED: LISINOPRIL 5 MG TABLET (FP) PO SCH (13:30)
--- NOTE | 2019-06-10 14:10 | EKG ---
Test Reason : Blood Pressure : / mmHG Vent. Rate : 071 BPM Atrial Rate : 071 BPM P-R Int : 156 ms QRS Dur : 102 ms QT Int : 474 ms P-R-T Axes : 067 011 145 degrees QTc Int : 515 ms NORMAL SINUS RHYTHM POSSIBLE LEFT ATRIAL ENLARGEMENT LEFT VENTRICULAR HYPERTROPHY WITH REPOLARIZATION ABNORMALITY CANNOT RULE OUT INFERIOR INFARCT (CITED ON OR BEFORE 08-FEB-2015) PROLONGED QT ABNORMAL ECG WHEN COMPARED WITH ECG OF 02-APR-2019 14:06, NO SIGNIFICANT CHANGE WAS FOUND Confirmed by LUPE FRENANDEZ MD ([id number]) on 06/10/2019 2:09:37 PM Referred By: Confirmed By:LUPE FERNANDEZ MD
[2019-06-10 14:35] VITALS: BP 138/72; PULSE 89; TEMP 98.4
--- NOTE | 2019-06-10 14:50 | PN ---
Progress Note (short form) - Note Progress Note: s: no cp sob palps dizzy Vital Signs Period Temp Pulse Resp BP Sys/Horowitz Pulse Ox Last 24 Hr 97.6 F-98.9 F 68-90 16-20 116-153/38-83 96-98 Constitutional: Yes: No Distress, Calm Eyes: Yes: Conjunctiva Clear Neck: Yes: Supple, Trachea Midline Respiratory: Yes: Regular, CTA Bilaterally Gastrointestinal: Yes: Normal Bowel Sounds, Soft Cardiovascular: Yes: Regular Rate and Rhythm JVD: No Heart Sounds: Yes: S1, S2 Extremities: No: Cold Edema: No Neurological: Yes: Alert, Oriented Psychiatric: No: Agitated Current Medications Generic Name Dose Route Start Last Admin Trade Name Freq PRN Reason Stop Dose Admin Acetaminophen 650 mg 06/10/19 05:59 06/10/19 06:23 Tylenol - PO 650 mg Q6H PRN Administration PAIN LEVEL 6-10 Aspirin 81 mg 06/10/19 13:30 06/10/19 14:10 Ecotrin - PO 81 mg DAILY DEANNA Administration Atorvastatin Calcium 80 mg 06/10/19 22:00 Lipitor - PO HS DEANNA Carvedilol 3.125 mg 06/10/19 13:30 Coreg - PO BID DEANNA Sodium Chloride 250 mls @ 3,000 mls/hr 06/09/19 19:45 Normal Saline - IV 06/10/19 19:45 PRN PRN Hypotension during Dialysis Lisinopril 2.5 mg 06/10/19 13:30 Prinivil PO DAILY DEANNA Melatonin 3 mg 06/09/19 22:37 06/09/19 22:52 Melatonin PO 3 mg HS DEANNA Administration Ropinirole HCl 0.5 mg 06/09/19 22:41 06/09/19 22:53 Requip - PO 0.5 mg HS DEANNA Administration CBC, BMP 06/09/19 11:20 06/10/19 07:30 Assessment/Plan EKG: sinus, nl intervals, nonspecific ST changes similar to prior echo 03/2019 tds, mod to sev MR, mild to mod ao sclerosis, severe TR, severely reduced LV function, RVSP >60 mmHg, LV/RV not well visualized, mild to mod AR mibi 03/2019 mod size inferolateral infarct with mild марина-infarct ischemia, global hypokinesis, EF 13% CXR: no acute process tele: sr elevated trop - borderline trop elevation, flat trend - chronically elevated in setting of ESRD, CHF - EKG similar to prior, less likely ACS dizziness - vasovagal vs orthostatic in setting of recent diarrhea, also missed HD session - tele benign, sxs resolved chronic systolic HF, s/p ICD - appears euvolemic - volume management per renal - pt stopped spironolactone herself - continue carvedilol and lisinopril, dose adjustments limited by low BP in the past, continued now at the lowest possible doses. CAD s/p CABG - cont statin, aspirin, bb DM - manage per primary cardiac villa stable for dc
--- NOTE | 2019-06-10 16:40 | DS ---
Physical Exam: SUBJECTIVE: Patient seen and examined at the bedside. tolerated dialysis. was a rapid response yesterday at wound care, did not get to see the form raiser. She has been feeling dizzy for a few months, now had a pre syncopal episode at wound care after having diarrhea at home for the past 2 days. She feels better today, ambulating around room and wants to go home. Encouraged her to stay until tomorrow but she wants to leave now. She states she has an appointment with Dr. Fernández (stock fitter) on Thursday and will defer to him on lowering the doses of her medications. Encouraged her to check her BP at home and keep a record of her blood pressures. Will send in a script for a wrist monitor. Seen by stock fitter and cleared for discharge home. OBJECTIVE: Patient is a 59 year old female with a significant past medical history of CAD s /p CABG, chronic systolic HF s/p ICD, DM, ESRD on HD chronic L foot wound who had a near syncope episode at wound care with reported low BP. Patient complains of dizziness for the past couple of weeks but no syncope at home. Started to have diarrhea in the last 2 days which has now resolved. She missed dialysis 2/2 to the diarrhea. Patient went to wound care clinic for her left foot ulcer and started to feel lightheaded (more than her usual). She denies chest pain and her BP initially 60/40 during response. In the ED her BP normalized and she was placed on tele. She is ambulating in room, denies dizziness, nausea or chest pain. No longer having diarrhea. Her BP has remained stable. She will be discharged home today and will follow up with her stock fitter on Thursday. Vital Signs Period Temp Pulse Resp BP Sys/Horowitz Pulse Ox Last 24 Hr 97.6 F-98.9 F 70-90 16-19 116-153/40-83 96-97 PHYSICAL EXAM GENERAL: The patient is awake, alert, and fully oriented, in no acute distress. HEAD: Normal with no signs of trauma. EYES: PERRL, extraocular movements intact, sclera anicteric, conjunctiva clear. No ptosis. ENT: Ears normal, nares patent, oropharynx clear without exudates NECK: Trachea midline, full range of motion, supple. LUNGS: Breath sounds equal, clear to auscultation bilaterally HEART: Regular rate and rhythm ABDOMEN: Soft, nontender, nondistended, normoactive bowel sounds, no guarding, no rebound, no hepatosplenomegaly, no masses. EXTREMITIES: no edema. NEUROLOGICAL: Normal speech, gait not observed. PSYCH: Normal mood, normal affect. SKIN: Warm, dry, normal turgor, no rashes or lesions noted LABS Laboratory Results - last 24 hr 06/09/19 06/10/19 06/10/19 17:33 07:30 11:57 Sodium 140 Potassium 4.4 Chloride 106 Carbon Dioxide 18 L Anion Gap 16 BUN 67.5 H Creatinine 9.7 H* Est GFR (CKD-EPI)AfAm 4.58 Est GFR (CKD-EPI)NonAf 3.95 POC Glucometer 178 Random Glucose 80 Calcium 7.8 L Phosphorus 8.1 H Magnesium 1.8 Creatine Kinase 35 Troponin I 0.16 H HOSPITAL COURSE: Date of Admission:06/09/19 Date of Discharge: 06/10/19 Minutes to complete discharge: 45 Discharge Summary Problems reviewed: Yes Reason For Visit: ELEVATED TROPONIN I LEVEL PRE SYNCOPE Current Active Problems Elevated troponin (Acute) Vasovagal near syncope (Acute) Condition: Stable - Instructions Referrals: Eliud Kennedy MD [Primary Care Provider] - Disposition: HOME - Home Medications Comprehensive Discharge Medication List: Ambulatory Orders Cetirizine HCl [Zyrtec -] 10 mg PO HS 02/03/19 Fluticasone Prop 0.05% Nasal [Flonase -] 1 - 2 spray NS DAILY 02/03/19 Aspirin Coated [Ecotrin -] 81 mg PO DAILY tablet.ec 03/31/19 Carvedilol [Coreg -] 3.125 mg PO BID tablet 04/04/19 Glimepiride [Amaryl -] 2 mg PO DAILY@0700 04/28/19 Collagenase Clostridium Hist. [Santyl -] 1 appful TP DAILY 05/19/19 Atorvastatin Calcium 80 mg PO DAILY 06/09/19 Lisinopril [Zestril] 2.5 mg PO DAILY 06/09/19 Melatonin [Melatin] 3 mg PO DAILY 06/09/19 Pantoprazole Sodium 40 mg PO DAILY 06/09/19 Spironolactone 12.5 mg PO DAILY 06/09/19 This patient is new to me today: Yes Date on this admission: 06/11/19 Emergency Visit: Yes ED Registration Date: 06/09/19 Care time: The patient presented to the Emergency Department on the above date and was hospitalized for further evaluation of their emergent condition. Critical Care patient: No - Discharge Referral Referred to [facility] Med [facility] No
--- NOTE | 2019-06-10 16:58 | PN ---
Progress Note, Physician History of Present Illness: Pt seen and examined at bedside. She tolerated HD. She denies shortness of breath. - Current Medication List Current Medications: Active Medications Acetaminophen (Tylenol -) 650 mg PO Q6H PRN PRN Reason: PAIN LEVEL 6-10 Last Admin: 06/10/19 06:23 Dose: 650 mg Aspirin (Ecotrin -) 81 mg PO DAILY [facility] Last Admin: 06/10/19 14:10 Dose: 81 mg Atorvastatin Calcium (Lipitor -) 80 mg PO [facility] Carvedilol (Coreg -) 3.125 mg PO BID [facility] Last Admin: 06/10/19 14:59 Dose: Not Given Sodium Chloride (Normal Saline -) 250 mls @ 3,000 mls/hr IV PRN PRN PRN Reason: Hypotension during Dialysis Stop: 06/10/19 19:45 Lisinopril (Prinivil) 2.5 mg PO DAILY [facility] Last Admin: 06/10/19 14:59 Dose: Not Given Melatonin (Melatonin) 3 mg PO [facility] Last Admin: 06/09/19 22:52 Dose: 3 mg Ropinirole HCl (Requip -) 0.5 mg PO [facility] Last Admin: 06/09/19 22:53 Dose: 0.5 mg - Objective Vital Signs: Vital Signs Temperature 98.4 F 06/10/19 14:00 Pulse Rate 89 06/10/19 14:00 Respiratory Rate 16 06/10/19 14:00 Blood Pressure 138/72 06/10/19 14:00 O2 Sat by Pulse Oximetry (%) 96 06/10/19 09:00 Constitutional: Yes: Calm Eyes: Yes: Conjunctiva Clear HENT: Yes: Atraumatic Neck: Yes: Supple Cardiovascular: Yes: S1, S2 Respiratory: Yes: CTA Bilaterally Gastrointestinal: Yes: Soft Genitourinary: Yes: WNL Musculoskeletal: Yes: WNL Edema: No Wound/Incision: Yes: Dressing Dry and Intact Neurological: Yes: Oriented Psychiatric: Yes: Oriented Labs: CBC, BMP 06/09/19 11:20 06/10/19 07:30 Problem List - Problems (1) ESRD (end stage renal disease) on dialysis Code(s): N18.6 - END STAGE RENAL DISEASE; Z99.2 - DEPENDENCE ON RENAL DIALYSIS Assessment/Plan Current Medications Generic Name Dose Route Start Last Admin Trade Name Freq PRN Reason Stop Dose Admin Acetaminophen 650 mg 06/10/19 05:59 06/10/19 06:23 Tylenol - PO 650 mg Q6H PRN Administration PAIN LEVEL 6-10 Aspirin 81 mg 06/10/19 13:30 06/10/19 14:10 Ecotrin - PO 81 mg DAILY DEANNA Administration Atorvastatin Calcium 80 mg 06/10/19 22:00 Lipitor - PO HS [facility] Carvedilol 3.125 mg 06/10/19 13:30 06/10/19 14:59 Coreg - PO Not Given BID [facility] Sodium Chloride 250 mls @ 3,000 mls/hr 06/09/19 19:45 Normal Saline - IV 06/10/19 19:45 PRN PRN Hypotension during Dialysis Lisinopril 2.5 mg 06/10/19 13:30 06/10/19 14:59 Prinivil PO Not Given DAILY DEANNA Melatonin 3 mg 06/09/19 22:37 06/09/19 22:52 Melatonin PO 3 mg HS DEANNA Administration Ropinirole HCl 0.5 mg 06/09/19 22:41 06/09/19 22:53 Requip - PO 0.5 mg HS DEANNA Administration Impression 1. ESRD 2. CHF 3. DM 4. HTN 5. hyperlipidemia 6. nephrotic range proteinuria 7. CAD 8. elevated troponin 9. pre syncope Plan - pt tolerated HD today - pt has HD set up as outpt - bp stabilizing - diarrhea has resolved
[2019-06-10] MEDS ORDERED: ATORVASTATIN CA 80 MG TABLET (FP) PO SCH (22:00)
== END 2019-06-10 18:02 | disposition home or self-care (01) | DRG 314 ==
LOC: JER 11:02 → JERBED 11:35 → J4S 19:03
PROVIDERS: ATTEND Nurse Practitioner Family
PROC: 5A1D70Z Performance of Urinary Filtration, Intermittent, Less than 6 Hours Per Day (ICD-10-PCS; principal; 2019-06-10)
DX: I95.9 Hypotension, unspecified (principal); N18.6 End stage renal disease; L97.528 Non-pressure chronic ulcer of other part of left foot with other specified severity; I13.2 Hypertensive heart and chronic kidney disease with heart failure and with stage 5 chronic kidney disease, or end stage renal disease; I24.8 Other forms of acute ischemic heart disease; I50.22 Chronic systolic (congestive) heart failure; I25.10 Atherosclerotic heart disease of native coronary artery without angina pectoris; R94.31 Abnormal electrocardiogram [ECG] [EKG]; J44.9 Chronic obstructive pulmonary disease, unspecified; R55 Syncope and collapse; E86.1 Hypovolemia; R19.7 Diarrhea, unspecified; E11.22 Type 2 diabetes mellitus with diabetic chronic kidney disease; E13.621 Other specified diabetes mellitus with foot ulcer; Z99.2 Dependence on renal dialysis; Z95.810 Presence of automatic (implantable) cardiac defibrillator; Z95.1 Presence of aortocoronary bypass graft; Z88.0 Allergy status to penicillin
CPT/HCPCS: 36415; 71045-TC-FY; 80048; 80053; 82550; 82962; 83735; 84100; 84484; 85025; 86803; 87340; 93005; 93010; 99285-25

== ENCOUNTER 2019-06-15 11:54 | Inpatient (IN) | payer OTHER ==
--- NOTE | 2019-06-15 12:11 | PDOC ---
Rapid Medical Evaluation Time Seen by Provider: 06/15/19 12:05 Medical Evaluation: Allergies Allergy/AdvReac Type Severity Reaction Status Date / Time Penicillins Allergy Severe RESPIRATORY Verified 03/23/19 18:18 DISTRESS prednisone AdvReac Severe disorientat Verified 03/23/19 18:18 ion gluten AdvReac Verified 03/26/19 09:04 morphine AdvReac disorientat Verified 03/23/19 18:18 ion BETA BLOCKERS Allergy Severe SEVERE Uncoded 03/22/19 17:55 HYPOTENSION 06/15/19 12:07 CC: hematuria, lower abdominal pain, urinary frequency x2 days PE: BP-163/44. AF. No CVAT. Orders: urine, labs Patient will proceed to the ED for further evaluation. Discharge Disposition - Diagnosis Urinary problem in female - Referrals - Patient Instructions - Post Discharge Activity
--- NOTE | 2019-06-15 13:36 | PDOC ---
History of Present Illness - General Chief Complaint: Urinary Problem Stated Complaint: URINARY PROBLEM Time Seen by Provider: 06/15/19 12:05 - History of Present Illness Initial Comments: 06/15/19 13:36 HPI: 59 y/o F with hx of CAD s/p CABG, CMH s/p AICD, DM, ESRD on HD MWF, HTN presenting with hematuria since yesterday. Last night she began feeling suprapubic pain with radiation to the left flank. Pain is intermittent and 5/10 , crampy in nature. She also reports increased urinary urgency x1 week, which is odd for her because she makes minimal urine 2-3/day due to HD. Took tylenol last night with relief of pain, but worsening symptoms today. Denies fever, chills, chest pain, SWENSON, LH. PMHx: as noted above ROS: as noted SHx: Denies tobacco use; no alcohol use; no rec drugs Allergies: NKDA ROS: GENERAL/CONSTITUTIONAL: No fever or chills. No weakness. HEAD, EYES, EARS, NOSE AND THROAT: No change in vision. No ear pain or discharge. No sore throat. CARDIOVASCULAR: No chest pain; +shortness of breath at baseline and currently unchanged RESPIRATORY: No cough, wheezing, or hemoptysis. GASTROINTESTINAL: No nausea, vomiting, diarrhea or constipation. GENITOURINARY: +hematuria, increased urgency, dysuria MUSCULOSKELETAL: No joint or muscle swelling or pain. No neck or back pain. SKIN: No rash NEUROLOGIC: No headache, vertigo, loss of consciousness, or change in strength/ sensation. ENDOCRINE: No increased thirst. No abnormal weight change HEMATOLOGIC/LYMPHATIC: No anemia, easy bleeding, or history of blood clots. ALLERGIC/IMMUNOLOGIC: No hives or skin allergy. PE: GENERAL: Awake, alert, and fully oriented, no acute distress HEAD: No signs of trauma, normocephalic, atraumatic EYES: EOMI, sclera anicteric, conjunctiva clear ENT: Auricles normal inspection, hearing grossly normal, nares patent, oropharynx clear without exudates. Moist mucosa NECK: Normal ROM, no lymphadenopathy LUNGS: No increased work of breathing, symmetrical chest rise, clear to auscultation bilaterally, no wheezes, crackles or rhonchi HEART: Regular rate, regular rhythm, normal S1 and S2, +S3, +systolic murmur, peripheral pulses 2+ and equal bilaterally. trace BL LE edema ABDOMEN: Soft, nondistended, nontender, normoactive bowel sounds. No guarding, no rebound. No masses. BL CVAT R>L MUSCULOSKELETAL: FROM NEUROLOGICAL: Cranial nerves II through XII grossly intact. Normal speech, normal gait, no focal sensorimotor deficits SKIN: Warm, Dry, normal turgor, no rashes or lesions noted Past History - Past Medical History Allergies/Adverse Reactions: Allergies Allergy/AdvReac Type Severity Reaction Status Date / Time Penicillins Allergy Severe RESPIRATORY Verified 03/23/19 18:18 DISTRESS prednisone AdvReac Severe disorientat Verified 03/23/19 18:18 ion gluten AdvReac Verified 03/26/19 09:04 morphine AdvReac disorientat Verified 03/23/19 18:18 ion BETA BLOCKERS Allergy Severe SEVERE Uncoded 03/22/19 17:55 HYPOTENSION Home Medications: Ambulatory Orders Cetirizine HCl [Zyrtec -] 10 mg PO HS 02/03/19 Fluticasone Prop 0.05% Nasal [Flonase -] 1 - 2 spray NS DAILY 02/03/19 Aspirin Coated [Ecotrin -] 81 mg PO DAILY tablet.ec 03/31/19 Carvedilol [Coreg -] 3.125 mg PO BID tablet 04/04/19 Glimepiride [Amaryl -] 2 mg PO DAILY@0700 04/28/19 Collagenase Clostridium Hist. [Santyl -] 1 appful TP DAILY 05/19/19 Atorvastatin Calcium 80 mg PO DAILY 06/09/19 Lisinopril [Zestril] 2.5 mg PO DAILY 06/09/19 Melatonin [Melatin] 3 mg PO DAILY 06/09/19 Pantoprazole Sodium 40 mg PO DAILY 06/09/19 Spironolactone 12.5 mg PO DAILY 06/09/19 Blood Pressure Test Kit-Wrist [[employer] Wrist Bp Monitor] 1 each MC DAILY #1 kit 06/10/19 Anemia: No Asthma: No Cancer: No Cardiac Disorders: Yes (CAD) CVA: No COPD: No CHF: Yes Dementia: No Diabetes: Yes (x4 yrs ago) GI Disorders: No Disorders: No HTN: Yes Hypercholesterolemia: Yes Liver Disease: No Seizures: No Thyroid Disease: No - Surgical History Abdominal Surgery: No Appendectomy: No Cardiac Surgery: Yes (CABG 02/2015) Cholecystectomy: No Lung Surgery: No Neurologic Surgery: No Orthopedic Surgery: No - Immunization History Immunization Up to Date: No - Psycho Social/Smoking Cessation Hx Smoking Status: No Smoking History: Never smoked Have you smoked in the past 12 months: No Number of Cigarettes Smoked Daily: 0 If you are a former smoker, when did you quit?: 20 yrs ago Hx Alcohol Use: No Drug/Substance Use Hx: No Substance Use Type: None Hx Substance Use Treatment: No *Physical Exam - Vital Signs Last Vital Signs Temp Pulse Resp BP Pulse Ox 97.4 F L 73 20 162/44 L 99 06/15/19 12:07 06/15/19 12:07 06/15/19 12:07 06/15/19 12:07 06/15/19 12:07 ED Treatment Course - LABORATORY CBC & Chemistry Diagram: 06/15/19 12:39 06/15/19 12:39 Medical Decision Making - Medical Decision Making 06/15/19 16:42 59 y/o F with hx of CAD s/p CABG, CMH s/p AICD, DM, ESRD on HD MWF, HTN presenting with hematuria since yesterday associated with suprapubic pain with radiation to the left flank. VSS, AF. PE with BL CVAT R>L -UA, ucx, cbc, cmp, CT spiral -iv levaquin 06/15/19 16:46 CT with right sided hydroureter without stones or masses; discussed with Dr Pond; right hydroureter is a new finding; requesting admission for iv abx and dialysis tomorro Admitted to ariela Scherer; also requesting urology consult for new hydroureter Discharge - Discharge Information Problems reviewed: Yes Clinical Impression/Diagnosis: Urinary problem in female, Hydroureter on right, Hemorrhagic cystitis, ESRD ( end stage renal disease) on dialysis - Follow up/Referral Referrals: Eliud Kennedy MD [Primary Care Provider] - - Patient Discharge Instructions - Post Discharge Activity
[2019-06-15 13:45] LABS: EOS % 7.3 % (0-4.5); HEMATOCRIT 31.2 % (32.4-45.2); LYMPH % 9.5 % (8-40); MCH 30.6 pg (25.7-33.7); MEAN CELL VOLUME 95.7 fl (80-96); MEAN PLT VOLUME 8.4 fl (7.5-11.1); NEUT % 74.2 % (42.8-82.8); PLATELET COUNT 213 K/MM3 (134-434); RBC 3.27 M/mm3 (3.60-5.2); RDW 17.1 % (11.6-15.6); WHITE BLOOD COUNT 12.1 K/mm3 (4.0-10.0)
[2019-06-15 13:58] LABS: PH,URINE 8.5 (5.0-8.0); URINE APPEARANCE Turbid; URINE BILIRUBIN 3+ (NEGATIVE); URINE COLOR Brown; URINE GLUCOSE (UA) Trace (NEGATIVE); URINE KETONE 2+ (NEGATIVE); URINE LEUK ESTERASE 3+ (NEGATIVE); URINE NITRITE Positive (NEGATIVE); URINE PROTEIN 3+ (NEGATIVE); URINE UROBILINOGEN >=8.0 E.U./dl mg/dL (0.2-1.0)
--- NOTE | 2019-06-15 14:09 | PDOC ---
Documentation entered by Anju Olivarez SCRIBE, acting as scribe for Orlando Grayson MD. Orlando Grayson MD: This documentation has been prepared by the Sher holcomb Adrianna, SCRIBE, under my direction and personally reviewed by me in its entirety. I confirm that the documentation accurately reflects all work, treatment, procedures, and medical decision making performed by me. Attending Attestation - Resident Resident Name: ReedFrankjono - ED Attending Attestation I have performed the following: I have examined & evaluated the patient, The case was reviewed & discussed with the resident, I agree w/resident's findings & plan, Exceptions are as noted - HPI HPI: The patient is a 59 year old female, with a significant PMH of CAD (s/p CABG), ESRD (on HD), CHF (s/p AICD), DM, HTN, HLD, and chronic left foot wound, who presents to the ED for evaluation of hematuria, dysuria, and bilateral flank pain for one day. Allergies:m Penicillins, prednisone, gluten, morphine, beta blockers Surgical History: CABG, AICD Social History: Former smoker (quit 20 years ago). Denies EtOH or illicit drug use. PCP: Dr. Kennedy - Physicial Exam PE: 06/15/19 14:07 Patient is awake and alert, in no significant distress, vital signs noted Normocephalic and atraumatic PERRLA, EOMI no JVD CTA RRR abdomen soft, minimal suprapubic tenderness, bilateral CVA tenderness, no guarding or rebound; No lower extremity edema - Medical Decision Making 06/15/19 14:08 Patient is a 59-year-old female with multiple comorbidities, end-stage renal disease on hemodialysis who presents with gross hematuria for 24 hours, dysuria , bilateral flank pain. Differential diagnosis includes hemorrhagic cystitis versus pyelonephritis versus nephrolithiasis. Will obtain CBC/CMP/UA/urine culture and sensitivity/CT of abdomen pelvis. Will reassess.
[2019-06-15 14:14] LABS: ALBUMIN 2.6 g/dl (3.4-5.0); BILIRUBIN,TOTAL 0.6 mg/dL (0.2-1); BLOOD UREA NITROGEN 37.1 mg/dL (7-18); CALCIUM 8.1 mg/dL (8.5-10.1); CREATININE 6.6 mg/dL (0.55-1.3); POTASSIUM 4.1 mmol/L (3.5-5.1)
[2019-06-15 15:03] LABS: URINE RBC >100 /hpf (0-4)
[2019-06-15] MEDS ORDERED: ACETAMINOPHEN 325 MG TABLET (FP) PO ONE ×2 (15:32→21:51)
[2019-06-15] MEDS ORDERED: ACETAMINOPHEN 325 MG TABLET (FP) ONE (16:10)
--- NOTE | 2019-06-15 17:46 | HP ---
CHIEF COMPLAINT: hematuria PCP: Dr. Kennedy HISTORY OF PRESENT ILLNESS: Patient is a 59 y/o F with hx of CAD s/p CABG, CMH s/p AICD, DM, ESRD on HD MWF , HTN presented to the ER after seeing blood in her urine yesterday. Patient couldn't quanitify but she said her "urine looked like urine, but with some red in it". Patient also says she's been experiencing discomfort with increased urinary urgency for a week. Patient says the discomfort feels like a cramping feeling. She says she never experienced anything like this before. Patient denies fevers, chills, chest pain, headaches, diarrhea, nausea, vomiting. Patient said she was recently started on dialysis in March. Her insurance clerk is Dr. Pond. In the ER, CT scan was done which revealed right sided hydroureter without stones or masses. Urology was consulted. Dr. Pond was called. U/A was positive. 3+ blood, 3+LE. Recent Travel: denies PAST MEDICAL HISTORY: per HPI PAST SURGICAL HISTORY: multiple c sections, CABG 2014, permacath placement Social History: Smoking:denies Alcohol: denies Drugs: denies Allergies Penicillins Allergy (Severe, Verified 03/23/19 18:18) RESPIRATORY DISTRESS rash and difficulty breathing prednisone Adverse Reaction (Severe, Verified 03/23/19 18:18) disorientation gluten Adverse Reaction (Verified 03/26/19 09:04) morphine Adverse Reaction (Verified 03/23/19 18:18) disorientation BETA BLOCKERS Allergy (Severe, Uncoded 03/22/19 17:55) SEVERE HYPOTENSION HOME MEDICATIONS: Home Medications Medication Instructions Recorded Cetirizine HCl [Zyrtec -] 10 mg PO HS 02/03/19 Fluticasone Prop 0.05% Nasal 1 - 2 spray NS DAILY 02/03/19 [Flonase -] Aspirin Coated [Ecotrin -] 81 mg PO DAILY tablet.ec 03/31/19 Carvedilol [Coreg -] 3.125 mg PO BID tablet 04/04/19 Glimepiride [Amaryl -] 2 mg PO DAILY@0700 04/28/19 Collagenase Clostridium Hist. 1 appful TP DAILY 05/19/19 [Santyl -] Atorvastatin Calcium 80 mg PO DAILY 06/09/19 Lisinopril [Zestril] 2.5 mg PO DAILY 06/09/19 Melatonin [Melatin] 3 mg PO DAILY 06/09/19 Pantoprazole Sodium 40 mg PO DAILY 06/09/19 Spironolactone 12.5 mg PO DAILY 06/09/19 Blood Pressure Test Kit-Wrist 1 each MC DAILY #1 kit 06/10/19 [[employer] Wrist Bp Monitor] REVIEW OF SYSTEMS per HPI PHYSICAL EXAMINATION Vital Signs - 24 hr 06/15/19 12:07 Temperature 97.4 F L Pulse Rate 73 Respiratory 20 Rate Blood Pressure 162/44 L O2 Sat by Pulse 99 Oximetry (%) GENERAL: a/o x 3, comfortable in NAD HEAD: Normal with no signs of trauma. EYES: Pupils equal, round and reactive to light, conjunctiva clear EARS, NOSE, THROAT: oropharynx clear without exudates. Moist mucous membranes. Chest: +permacath NECK: supple without lymphadenopathy, JVD, or masses. LUNGS: Breath sounds equal, clear to auscultation bilaterally. No wheezes, and no crackles. HEART: RRR, no MGR ABDOMEN: Soft, nontender, not distended, normoactive bowel sounds, +stretch valdes. No CVA tenderness (but reported CVA tenderness in ER) LOWER EXTREMITIES: 2+ pulses, warm, No peripheral edema. patches of necrosis on left foot. dressing placed on both feet. NEUROLOGICAL: Cranial nerves II-XII intact. Laboratory Results - last 24 hr 06/15/19 06/15/19 06/15/19 12:39 12:39 12:58 WBC 12.1 H RBC 3.27 L Hgb 10.0 L Hct 31.2 L MCV 95.7 MCH 30.6 MCHC 32.0 RDW 17.1 H Plt Count 213 MPV 8.4 Absolute Neuts (auto) 9.0 H Neutrophils % 74.2 Lymphocytes % 9.5 Monocytes % 8.0 Eosinophils % 7.3 H Basophils % 1.0 Nucleated RBC % 0 Sodium 139 Potassium 4.1 Chloride 103 Carbon Dioxide 26 Anion Gap 9 BUN 37.1 H Creatinine 6.6 H Est GFR (CKD-EPI)AfAm 7.29 Est GFR (CKD-EPI)NonAf 6.29 Random Glucose 153 H Calcium 8.1 L Total Bilirubin 0.6 AST 15 ALT 14 Alkaline Phosphatase 189 H Total Protein 6.0 L Albumin 2.6 L Urine Color Brown Urine Appearance Turbid Urine pH 8.5 H D Ur Specific [place] <= 1.005 L Urine Protein 3+ H Urine Glucose (UA) Trace Urine Ketones 2+ H Urine Blood 3+ H Urine Nitrite Positive Urine Bilirubin 3+ H Urine Urobilinogen >=8.0 e.u./dl H Ur Leukocyte Esterase 3+ H Urine RBC (Auto) >100 ASSESSMENT/PLAN: -Patient is a 59 y/o F with hx of CAD s/p CABG, CMH s/p AICD, DM, ESRD on HD MWF , HTN presented to the ER after seeing blood in her urine. #Hemorrhagic cystitis likely 2/2 R Hydroureter vs UTI -CT scan was done which revealed right sided hydroureter without stones or masses. -no signs of obstruction at this time -Will order Renal U/S -Urology consult -will hold aspirin #Symptomatic UTI -u/a positive -fU cultures -Start IV abx: Levaquin (Renally dosed). Patient allergic to penicillin -patient afebrile -monitor vital signs #ESRD -nephro on board -likely HD in the am. patient with permacath #CAD s/p CABG -cont home meds #HTN -cont home meds -monitor vital signs #DM -ssi -bgm #FEN -no iv fluids at this time -monitor lytes -diabetic diet Visit type - Emergency Visit Emergency Visit: Yes ED Registration Date: 06/15/19 Care time: The patient presented to the Emergency Department on the above date and was hospitalized for further evaluation of their emergent condition. - New Patient This patient is new to me today: Yes Date on this admission: 06/20/19 - Critical Care Critical Care patient: No ATTENDING PHYSICIAN STATEMENT I saw and evaluated the patient. I reviewed the resident's note and discussed the case with the resident. I agree with the resident's findings and plan as documented. SUBJECTIVE: OBJECTIVE: ASSESSMENT AND PLAN:
--- NOTE | 2019-06-15 17:47 | PN ---
Teaching Attending Note Name of Resident: Theodore Altamirano ATTENDING PHYSICIAN STATEMENT I saw and evaluated the patient. I reviewed the resident's note and discussed the case with the resident. I agree with the resident's findings and plan as documented. SUBJECTIVE: Patient is a 59 y/o F with hx of CAD s/p CABG, CMH s/p AICD, DM, ESRD on HD MWF , HTN presented to the ER after seeing blood in her urine yesterday. Patient couldn't quanitify but she said her "urine looked like urine, but with some red in it". Patient also says she's been experiencing discomfort with increased urinary urgency for a week. Patient says the discomfort feels like a cramping feeling. She says she never experienced anything like this before. Patient denies fevers, chills, chest pain, headaches, diarrhea, nausea, vomiting. Patient said she was recently started on dialysis in March. Her waxer is Dr. Pond. In the ER, CT scan was done which revealed right sided hydroureter without stones or masses. Urology was consulted. Dr. Pond was called. U/A was positive. 3+ blood, 3+LE. OBJECTIVE: appears comfortable, nad alert awake, oriented onto 3 vss neck supple no jvd cvs s1/s2/0, scar fromthe cabg chest ctab abd benign, scratch valdes, ext no c/c/e neuro non focal ASSESSMENT AND PLAN: -Patient is a 59 y/o F with hx of CAD s/p CABG, CMH s/p AICD, DM, ESRD on HD MWF , HTN presented to the ER after seeing blood in her urine. Hematuria likely 2/2 R Hydroureter, rule out UTI -CT scan was done which revealed right sided hydroureter without stones or masses. -no signs of obstruction at this time -Will order Renal U/S to rule out stones, -Urology consult -will hold aspirin, check ua and c&s and renal dose of the levaquin, fu with the nephrology for the esrd, and hd, missed the HD today, continue the cardiac meds, and htn meds, riss,
--- NOTE | 2019-06-15 19:03 | CONSULT ---
Consult Consult Specialty:: Podiatric Surgery Reason for Consultation:: Cellulitis/Wound left foot - History of Present Illness History of Present Illness: Pt is a wound care pt. Has left dressing on foot for 13 days now. 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 Cardio/Vascular: Yes: CAD Pulmonary: Yes: COPD Renal/: Yes: Renal Failure, Hemodialysis Endocrine: Yes: Diabetes Mellitus - Past Surgical History Past Surgical History: Yes: Arthrosocopy (Rt knee surgery in her 20s secondary to chrondomalacia), CABG - Alcohol/Substance Use Hx Alcohol Use: No History of Substance Use: reports: None - Smoking History Smoking history: Never smoked Have you smoked in the past 12 months: No Aproximately how many cigarettes per day: 0 If you are a former smoker, when did you quit?: 20 yrs ago - Social History Usual Living Arrangement: Other (adult children) ADL: Independent 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 [employer] Home Medications - Allergies Allergies/Adverse Reactions: Allergies Allergy/AdvReac Type Severity Reaction Status Date / Time Penicillins Allergy Severe RESPIRATORY Verified 03/23/19 18:18 DISTRESS prednisone AdvReac Severe disorientat Verified 03/23/19 18:18 ion gluten AdvReac Verified 03/26/19 09:04 morphine AdvReac disorientat Verified 03/23/19 18:18 ion BETA BLOCKERS Allergy Severe SEVERE Uncoded 03/22/19 17:55 HYPOTENSION - Home Medications Home Medications: Ambulatory Orders Fluticasone Prop 0.05% Nasal [Flonase -] 1 - 2 spray NS DAILY 02/03/19 Aspirin Coated [Ecotrin -] 81 mg PO DAILY tablet.ec 03/31/19 Carvedilol [Coreg -] 3.125 mg PO BID tablet 04/04/19 Glimepiride [Amaryl -] 2 mg PO DAILY@0700 04/28/19 Collagenase Clostridium Hist. [Santyl -] 1 appful TP DAILY 05/19/19 Atorvastatin Calcium 80 mg PO DAILY 06/09/19 Pantoprazole Sodium 40 mg PO DAILY 06/09/19 Spironolactone 12.5 mg PO DAILY 06/09/19 Blood Pressure Test Kit-Wrist [Snappy Chow Wrist Bp Monitor] 1 each MC DAILY #1 kit 06/10/19 Melatonin 5 mg PO 06/15/19 Physical Exam Vital Signs: Vital Signs Temperature 97.4 F L 06/15/19 12:07 Pulse Rate 73 06/15/19 12:07 Respiratory Rate 20 06/15/19 12:07 Blood Pressure 162/44 L 06/15/19 12:07 O2 Sat by Pulse Oximetry (%) 99 06/15/19 12:07 Extremities: Yes: Other (ns and vs decreased, +cellulitis left foot with necrotic patches on toes,) Labs: CBC, BMP 06/15/19 12:39 06/15/19 12:39 Assessment/Plan cellulitis chronic wound Santyl to left foot dorsum daily. ID consulted. Will follow. Xray left foot.
--- NOTE | 2019-06-15 19:54 | CONS ---
DATE OF CONSULTATION: DATE OF DICTATION: 06/15/2019 HISTORY OF PRESENT ILLNESS: Patient is a 59-year-old female admitted via the emergency room for gross hematuria, dysuria, and bilateral flank pain, more on the right side than the left. This has been going on for 24 hours. The patient does have history of end-stage renal disease on hemodialysis. She has coronary artery disease status post coronary artery bypass graft. She has history of congestive heart failure and has defibrillator implanted. She is diabetic, hypertensive, and dyslipidemic. Also has a chronic left foot wound. Patient is allergic to PENICILLIN, PREDNISONE, GLUTEN, MORPHINE, and BETA BLOCKERS. She denies any ethanol or tobacco use at present. She did smoke up to 20 years ago. PHYSICAL EXAMINATION: General: In the emergency room, she was alert and oriented. Abdomen: Soft. There was some tenderness over the left flank. LABORATORY: Patient underwent a CT scan of her abdomen and pelvis in the emergency room and this revealed mild dilation of the right upper collecting system with ureter without obvious obstruction. There was extensive vascular calcification within the aorta and its branches. There was no evidence of calculi in the urinary system. The patient's laboratory data revealed a revealed a white count of 12,100, hemoglobin and hematocrit 10/31.2, platelets were 213,000. Her BUN and creatinine were 37.1/6.6. Liver enzymes were normal. Urine grossly bloody. The patient is admitted for gross hematuria and right flank pain most likely status post passage of a stone. Will obtain a pelvic ultrasound to rule out any bladder pathology. Patient will need an elective cystoscopy because of the episode of gross hematuria. Will follow. Candida [id number]
[2019-06-15] MEDS ORDERED: INSULIN (NOVOLOG) ASPART 100 UNITS/ML 10ML VIAL ONE (21:46)
[2019-06-15] MEDS: INSULIN SLIDING SCALE (NOVOLOG) 1 VIAL SQ SCH (21:56)
[2019-06-15] MEDS ORDERED: HEPARIN NA (PORCINE) 5,000 UNITS/ML 1ML VIAL SQ SCH (22:00)
[2019-06-15] MEDS ORDERED: ATORVASTATIN CA 80 MG TABLET (FP) PO SCH ×2 (22:00→22:15)
[2019-06-15] MEDS ORDERED: MELATONIN 5 MG TABLETS PO SCH (22:00)
[2019-06-15 23:08] VITALS: BMI 23.2
[2019-06-15] MEDS ORDERED: rOPINIRole HCL 0.5 MG TABLET PO SCH (23:37)
[2019-06-16] MEDS ORDERED: INSULIN (NOVOLOG) ASPART 100 UNITS/ML 10ML VIAL ONE (06:03)
[2019-06-16] MEDS: INSULIN SLIDING SCALE (NOVOLOG) 1 VIAL SQ SCH ×2 (06:30→11:06)
--- NOTE | 2019-06-16 08:49 | PN ---
Teaching Attending Note Name of Resident: Theodore Altamirano ATTENDING PHYSICIAN STATEMENT I saw and evaluated the patient. I reviewed the resident's note and discussed the case with the resident. I agree with the resident's findings and plan as documented. SUBJECTIVE:No further hematuria OBJECTIVE: Vital Signs Temperature 98.2 F 06/16/19 05:47 Pulse Rate 87 06/16/19 05:47 Respiratory Rate 20 06/16/19 05:47 Blood Pressure 128/40 L 06/16/19 05:47 O2 Sat by Pulse Oximetry (%) 98 06/15/19 23:13 General: Young female, comfortable, not in distress HEENT; mucous membranes moist, no anemia, no jaundice, PERRLA, no nystagmus Neck: No JVD, supple, no bruit, thyroid palpably normal, normal carotid pulsations. Chest: Nontender, clear to auscultation bilaterally CVS: S1-S2 regular systolic murmur in aortic no gallop/rub Abdomen: Nondistended, soft, bowel sounds present. 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 , no gross motor sensory deficit CBC, BMP 06/15/19 12:39 06/15/19 12:39 CT abdomen: Questionable right hydroureter KUB ultrasound: No hydroureter Active Medications Atorvastatin Calcium (Lipitor -) 80 mg PO DAILY DEANNA Carvedilol (Coreg -) 3.125 mg PO BID DEANNA Collagenase (Santyl -) 1 applic TP DAILY DEANNA; Protocol Insulin Aspart (Novolog Vial Sliding Scale -) 1 vial SQ ACHS DEANNA; Protocol Last Admin: 06/16/19 06:30 Dose: Not Given Melatonin (Melatonin) 5 mg PO HS [facility] Last Admin: 06/15/19 21:56 Dose: 5 mg Ropinirole HCl (Requip -) 0.5 mg PO HS [facility] Last Admin: 06/16/19 00:15 Dose: 0.5 mg Spironolactone (Aldactone -) 12.5 mg PO DAILY DENANA ASSESSMENT AND PLAN: 59 y/o F with hx of CAD s/p CABG, CMH s/p AICD, DM, ESRD on HD MWF, HTN presented to the ER after seeing blood in her urine.Intial Ct shows mild Rt sided Hydronephrosis subsequent Ultrasound shows no hyfronephrosis or stone TWBC remained stable no fever evaluted by Cardiology, Nephrology, ID and Podiatyr, claered to Dc on Po Augmentin F/U Urne culture as out patient in PCP clinic Dr Alberts on Plan: Follow-up urine culture as out patient Dc On Home meds and PO Augmentin for 7 days. Problem List - Problems (1) Hydroureter on right Assessment/Plan: Resolved , in Rpyt ultrasound normal uric acid Problems reviewed: Yes Code(s): N13.4 - HYDROURETER (2) Hemorrhagic cystitis Assessment/Plan: F/U Urine culture cont Augmentin as per ID recommondations. Problems reviewed: Yes Code(s): N30.91 - CYSTITIS, UNSPECIFIED WITH HEMATURIA (3) ESRD (end stage renal disease) on dialysis Assessment/Plan: On HD Problems reviewed: Yes Code(s): N18.6 - END STAGE RENAL DISEASE; Z99.2 - DEPENDENCE ON RENAL DIALYSIS (4) Systolic heart failure Assessment/Plan: at present compensated cont all home meds Problems reviewed: Yes Code(s): I50.20 - UNSPECIFIED SYSTOLIC (CONGESTIVE) HEART FAILURE (5) Ischemic cardiomyopathy Assessment/Plan: Due tp CAd cont all home meds Problems reviewed: Yes Code(s): I25.5 - ISCHEMIC CARDIOMYOPATHY (6) Elevated troponin Assessment/Plan: Chronic Problems reviewed: Yes Code(s): R79.89 - OTHER SPECIFIED ABNORMAL FINDINGS OF BLOOD CHEMISTRY (7) Coronary artery disease Code(s): I25.10 - ATHSCL HEART DISEASE OF [place] CORONARY ARTERY W/O ANG PCTRS Qualifiers: Coronary Disease-Associated Artery/Lesion type: [place] artery [place] vs. transplanted heart: [place] heart Associated angina: without angina Qualified Code(s): I25.10 - Atherosclerotic heart disease of [place] coronary artery without angina pectoris (8) Wound of left foot Assessment/Plan: evaluted by ID Podiatry, patient has F/U in wound care ctr, Problems reviewed: Yes Code(s): S91.302A - UNSPECIFIED OPEN WOUND, LEFT FOOT, INITIAL ENCOUNTER
[2019-06-16 09:03] LABS: BASO % 0.8 % (0-2.0); HEMATOCRIT 29.3 % (32.4-45.2); HEMOGLOBIN 9.5 GM/dL (10.7-15.3); LYMPH % 10.4 % (8-40); MCH 30.8 pg (25.7-33.7); MCHC 32.3 g/dl (32.0-36.0); MEAN CELL VOLUME 95.3 fl (80-96); MONO % 7.4 % (3.8-10.2); NEUT % 76.4 % (42.8-82.8); PLATELET COUNT 190 K/MM3 (134-434); RBC 3.07 M/mm3 (3.60-5.2); RDW 17.3 % (11.6-15.6); WHITE BLOOD COUNT 12.7 K/mm3 (4.0-10.0)
--- NOTE | 2019-06-16 09:22 | CONSULT ---
Consult Consult Specialty:: Nephrology Reason for Consultation:: ESRD - History of Present Illness Chief Complaint: hematuria History of Present Illness: Pt is a 59 year old female with pmhx of esrd, cad, chf, dm, and htn who presented with hematuria. She was found to have hemorrhagic cystitis. She missed her HD yesterday. She says she feels better after abx. She says that her symptoms began yesterday whens she felt burning on urination. She also saw some blood on the napkin when she wiped. 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 Cardio/Vascular: Yes: CAD Pulmonary: Yes: COPD Renal/: Yes: Renal Failure, Hemodialysis ...: No Endocrine: Yes: Diabetes Mellitus - Past Surgical History Past Surgical History: Yes: Arthrosocopy (Rt knee surgery in her 20s secondary to chrondomalacia), CABG - Alcohol/Substance Use Hx Alcohol Use: No History of Substance Use: reports: None - Smoking History Smoking history: Never smoked Have you smoked in the past 12 months: No Aproximately how many cigarettes per day: 0 If you are a former smoker, when did you quit?: 20 yrs ago - Social History Usual Living Arrangement: Other (adult children) ADL: Independent 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 [employer] Home Medications - Allergies Allergies/Adverse Reactions: Allergies Allergy/AdvReac Type Severity Reaction Status Date / Time Penicillins Allergy Severe RESPIRATORY Verified 03/23/19 18:18 DISTRESS prednisone AdvReac Severe disorientat Verified 03/23/19 18:18 ion gluten AdvReac Verified 03/26/19 09:04 morphine AdvReac disorientat Verified 03/23/19 18:18 ion BETA BLOCKERS Allergy Severe SEVERE Uncoded 03/22/19 17:55 HYPOTENSION - Home Medications Home Medications: Ambulatory Orders Fluticasone Prop 0.05% Nasal [Flonase -] 1 - 2 spray NS DAILY 02/03/19 Carvedilol [Coreg -] 3.125 mg PO BID tablet 04/04/19 Glimepiride [Amaryl -] 2 mg PO DAILY@0700 04/28/19 Collagenase Clostridium Hist. [Santyl -] 1 appful TP DAILY 05/19/19 Atorvastatin Calcium 80 mg PO DAILY 06/09/19 Pantoprazole Sodium 40 mg PO DAILY 06/09/19 Spironolactone 12.5 mg PO DAILY 06/09/19 Melatonin 5 mg PO 06/15/19 Ropinirole HCl [Requip -] 0.5 mg PO HS 06/15/19 Levofloxacin [Levaquin] 500 mg PO Q48H #3 tablet 06/16/19 Family Medical History Family History: Denies Review of Systems - Review of Systems Constitutional: reports: Malaise Eyes: reports: No Symptoms HENT: reports: No Symptoms Neck: reports: No Symptoms Cardiovascular: reports: No Symptoms Respiratory: reports: No Symptoms Gastrointestinal: reports: No Symptoms Genitourinary: reports: Dysuria, Hematuria Musculoskeletal: reports: No Symptoms Integumentary: reports: No Symptoms Neurological: reports: No Symptoms Endocrine: reports: No Symptoms Physical Exam Vital Signs: Vital Signs Temperature 98.2 F 06/16/19 05:47 Pulse Rate 94 H 06/16/19 08:57 Respiratory Rate 18 06/16/19 08:57 Blood Pressure 129/48 L 06/16/19 08:57 O2 Sat by Pulse Oximetry (%) 98 06/15/19 23:13 Constitutional: Yes: Calm Eyes: Yes: Conjunctiva Clear HENT: Yes: Atraumatic Neck: Yes: Supple Cardiovascular: Yes: S1, S2 Respiratory: Yes: CTA Bilaterally Gastrointestinal: Yes: Soft Renal/: Yes: WNL Musculoskeletal: Yes: WNL Edema: No Neurological: Yes: Oriented Psychiatric: Yes: Oriented Imaging - Results Ultrasound: Report Reviewed Problem List - Problems (1) ESRD (end stage renal disease) on dialysis Code(s): N18.6 - END STAGE RENAL DISEASE; Z99.2 - DEPENDENCE ON RENAL DIALYSIS (2) Hemorrhagic cystitis Code(s): N30.91 - CYSTITIS, UNSPECIFIED WITH HEMATURIA Assessment/Plan Current Medications Generic Name Dose Route Start Last Admin Trade Name Freq PRN Reason Stop Dose Admin Atorvastatin Calcium 80 mg 06/16/19 10:00 Lipitor - PO DAILY DEANNA Carvedilol 3.125 mg 06/16/19 10:00 Coreg - PO BID DEANNA Collagenase 1 applic 06/16/19 10:00 Santyl - TP DAILY [facility] Protocol Epoetin Gabriel 3,000 unit 06/16/19 09:21 Procrit - IVPUSH 06/16/19 09:22 ONCE ONE Sodium Chloride 250 mls @ 3,000 mls/hr 06/16/19 09:21 Normal Saline - IV 06/17/19 09:21 PRN PRN Hypotension during Dialysis Insulin Aspart 1 vial 06/15/19 22:00 06/16/19 06:30 Novolog Vial Sliding Scale - SQ Not Given ACHS DEANNA Protocol Melatonin 5 mg 06/15/19 22:00 06/15/19 21:56 Melatonin PO 5 mg HS DEANNA Administration Ropinirole HCl 0.5 mg 06/15/19 23:37 06/16/19 00:15 Requip - PO 0.5 mg HS DEANNA Administration Spironolactone 12.5 mg 06/16/19 10:00 Aldactone - PO DAILY DEANNA Impression 1. ESRD 2. CHF 3. DM 4. HTN 5. hyperlipidemia 6. nephrotic range proteinuria 7. CAD 8. UTI - hemorrhagic cystitis Plan - cont abx - follow culture - HD today - she has HD set up as outpt for tomorrow
[2019-06-16] MEDS ORDERED: SPIRONOLACTONE 25 MG TABLET (FP) PO SCH (10:00)
[2019-06-16] MEDS ORDERED: CARVEDILOL 3.125 MG TABLET (FP) PO SCH (10:00)
[2019-06-16] MEDS ORDERED: ACETAMINOPHEN 325 MG TABLET (FP) PO PRN (10:00)
[2019-06-16] MEDS ORDERED: COLLAGENASE CLOSTRIDIUM HIST. 30 GRAMS TUBE TP SCH (10:00)
[2019-06-16] MEDS ORDERED: ATORVASTATIN CA 80 MG TABLET (FP) PO SCH (10:00)
[2019-06-16 10:10] LABS: ALBUMIN 2.4 g/dl (3.4-5.0); BILIRUBIN,TOTAL 0.7 mg/dL (0.2-1); BLOOD UREA NITROGEN 45.4 mg/dL (7-18); CALCIUM 8.4 mg/dL (8.5-10.1); TOT PROT 5.8 g/dl (6.4-8.2)
[2019-06-16] MEDS ORDERED: SODIUM CHLORIDE 250 ML IV PRN (11:30)
[2019-06-16] MEDS ORDERED: EPOETIN ALFA 3,000 UNIT/1 ML ML IVPUSH ONE (11:30)
[2019-06-16 11:50] VITALS: TEMP 98.3
--- NOTE | 2019-06-16 12:22 | DS ---
Physical Exam: SUBJECTIVE: Patient seen and examined OBJECTIVE: Vital Signs Period Temp Pulse Resp BP Sys/Horowitz Pulse Ox Last 24 Hr 98.1 F-98.3 F 81-94 18-20 106-140/40-77 98 PHYSICAL EXAM GENERAL: The patient is awake, alert, and fully oriented, in no acute distress. HEAD: Normal with no signs of trauma. EYES: PERRL, extraocular movements intact, sclera anicteric, conjunctiva clear. ENT: Ears normal, nares patent, oropharynx clear without exudates, moist mucous membranes. NECK: Trachea midline, full range of motion, supple. LUNGS: Breath sounds equal, clear to auscultation bilaterally, no wheezes, no crackles, no accessory muscle use. HEART: Regular rate and rhythm, S1, S2 without murmur, rub or gallop. ABDOMEN: Soft, nontender, nondistended, normoactive bowel sounds, no guarding, no rebound, no hepatosplenomegaly, no masses. EXTREMITIES: 2+ pulses, warm, well-perfused, no edema. NEUROLOGICAL: Cranial nerves II through XII grossly intact. Normal speech, gait not observed. PSYCH: Normal mood, normal affect. SKIN: Warm, dry, normal turgor, no rashes or lesions noted. LABS Laboratory Results - last 24 hr 06/15/19 06/15/19 06/15/19 12:39 12:39 12:58 WBC 12.1 H RBC 3.27 L Hgb 10.0 L Hct 31.2 L MCV 95.7 MCH 30.6 MCHC 32.0 RDW 17.1 H Plt Count 213 MPV 8.4 Absolute Neuts (auto) 9.0 H Neutrophils % 74.2 Lymphocytes % 9.5 Monocytes % 8.0 Eosinophils % 7.3 H Basophils % 1.0 Nucleated RBC % 0 Sodium 139 Potassium 4.1 Chloride 103 Carbon Dioxide 26 Anion Gap 9 BUN 37.1 H Creatinine 6.6 H Est GFR (CKD-EPI)AfAm 7.29 Est GFR (CKD-EPI)NonAf 6.29 POC Glucometer Random Glucose 153 H Hemoglobin A1c % Calcium 8.1 L Total Bilirubin 0.6 AST 15 ALT 14 Alkaline Phosphatase 189 H Total Protein 6.0 L Albumin 2.6 L Urine Color Brown Urine Appearance Turbid Urine pH 8.5 H D Ur Specific [place] <= 1.005 L Urine Protein 3+ H Urine Glucose (UA) Trace Urine Ketones 2+ H Urine Blood 3+ H Urine Nitrite Positive Urine Bilirubin 3+ H Urine Urobilinogen >=8.0 e.u./dl H Ur Leukocyte Esterase 3+ H Urine RBC (Auto) >100 06/15/19 06/16/19 06/16/19 21:48 05:44 08:19 WBC 12.7 H RBC 3.07 L Hgb 9.5 L Hct 29.3 L MCV 95.3 MCH 30.8 MCHC 32.3 RDW 17.3 H Plt Count 190 MPV 8.0 Absolute Neuts (auto) 9.7 H Neutrophils % 76.4 Lymphocytes % 10.4 Monocytes % 7.4 Eosinophils % 5.0 H Basophils % 0.8 Nucleated RBC % 0 Sodium Potassium Chloride Carbon Dioxide Anion Gap BUN Creatinine Est GFR (CKD-EPI)AfAm Est GFR (CKD-EPI)NonAf POC Glucometer 167 96 Random Glucose Hemoglobin A1c % Calcium Total Bilirubin AST ALT Alkaline Phosphatase Total Protein Albumin Urine Color Urine Appearance Urine pH Ur Specific [place] Urine Protein Urine Glucose (UA) Urine Ketones Urine Blood Urine Nitrite Urine Bilirubin Urine Urobilinogen Ur Leukocyte Esterase Urine RBC (Auto) 06/16/19 06/16/19 06/16/19 08:19 08:19 10:47 WBC RBC Hgb Hct MCV MCH MCHC RDW Plt Count MPV Absolute Neuts (auto) Neutrophils % Lymphocytes % Monocytes % Eosinophils % Basophils % Nucleated RBC % Sodium 139 Potassium 4.0 Chloride 103 Carbon Dioxide 23 Anion Gap 13 BUN 45.4 H Creatinine 8.0 H* Est GFR (CKD-EPI)AfAm 5.78 Est GFR (CKD-EPI)NonAf 4.99 POC Glucometer 130 Random Glucose 88 Hemoglobin A1c % 7.4 H Calcium 8.4 L Total Bilirubin 0.7 AST 13 L ALT 14 Alkaline Phosphatase 173 H Total Protein 5.8 L Albumin 2.4 L Urine Color Urine Appearance Urine pH Ur Specific [place] Urine Protein Urine Glucose (UA) Urine Ketones Urine Blood Urine Nitrite Urine Bilirubin Urine Urobilinogen Ur Leukocyte Esterase Urine RBC (Auto) HOSPITAL COURSE: Date of Admission:06/15/19 Date of Discharge: 06/16/19 Discharge Summary Problems reviewed: Yes Reason For Visit: ACUTE HEMORRHAGIC CYSTITIS Current Active Problems ESRD (end stage renal disease) on dialysis (Acute) Hemorrhagic cystitis (Acute) Hydroureter on right (Acute) Ischemic cardiomyopathy (Acute) Systolic heart failure (Acute) Urinary problem in female (Acute) Condition: Stable - Instructions Diet, Activity, Other Instructions: You were here because you found blood in your urine and you were also found to have a UTI and an enlargement of your right ureter. The ureter enlargement resolved. You will need to take Levofloxacin 500mg (antibiotics) after Dialysis for the next 3 dialysis sessions. We held your aspirin because of the recent bleeding, follow up with your primary care physician so it can be restarted if needed. Follow up with your primary care doctor in 1 week. Follow up with your client services analyst within 1 week. Follow up with wound care. Referrals: Eliud Kennedy MD [Primary Care Provider] - 1 Week Gilbert Pond MD [Staff Physician] - 1 Week Tom Galdamez DPM [Staff Physician] - 1 Week Disposition: HOME - Home Medications Comprehensive Discharge Medication List: Ambulatory Orders Fluticasone Prop 0.05% Nasal [Flonase -] 1 - 2 spray NS DAILY 02/03/19 Carvedilol [Coreg -] 3.125 mg PO BID tablet 04/04/19 Glimepiride [Amaryl -] 2 mg PO DAILY@0700 04/28/19 Collagenase Clostridium Hist. [Santyl -] 1 appful TP DAILY 05/19/19 Atorvastatin Calcium 80 mg PO DAILY 06/09/19 Pantoprazole Sodium 40 mg PO DAILY 06/09/19 Spironolactone 12.5 mg PO DAILY 06/09/19 Melatonin 5 mg PO 06/15/19 Ropinirole HCl [Requip -] 0.5 mg PO HS 06/15/19 ATTENDING PHYSICIAN STATEMENT I saw and evaluated the patient. I reviewed the resident's note and discussed the case with the resident. I agree with the resident's findings and plan as documented. SUBJECTIVE: OBJECTIVE: ASSESSMENT AND PLAN:
--- NOTE | 2019-06-16 12:26 | CON.ID ---
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 Cardio/Vascular: Yes: CAD Pulmonary: Yes: COPD Renal/: Yes: Renal Failure, Hemodialysis ...: No Endocrine: Yes: Diabetes Mellitus - Past Surgical History Past Surgical History: Yes: Arthrosocopy (Rt knee surgery in her 20s secondary to chrondomalacia), CABG - Alcohol/Substance Use Hx Alcohol Use: No History of Substance Use: reports: None - Smoking History Smoking history: Never smoked Have you smoked in the past 12 months: No Aproximately how many cigarettes per day: 0 If you are a former smoker, when did you quit?: 20 yrs ago - Social History Usual Living Arrangement: Other (adult children) ADL: Independent 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 Home Medications - Allergies Allergies/Adverse Reactions: Allergies Allergy/AdvReac Type Severity Reaction Status Date / Time Penicillins Allergy Severe RESPIRATORY Verified 03/23/19 18:18 DISTRESS prednisone AdvReac Severe disorientat Verified 03/23/19 18:18 ion gluten AdvReac Verified 03/26/19 09:04 morphine AdvReac disorientat Verified 03/23/19 18:18 ion BETA BLOCKERS Allergy Severe SEVERE Uncoded 03/22/19 17:55 HYPOTENSION - Home Medications Home Medications: Ambulatory Orders Fluticasone Prop 0.05% Nasal [Flonase -] 1 - 2 spray NS DAILY 02/03/19 Carvedilol [Coreg -] 3.125 mg PO BID tablet 04/04/19 Glimepiride [Amaryl -] 2 mg PO DAILY@0700 04/28/19 Collagenase Clostridium Hist. [Santyl -] 1 appful TP DAILY 05/19/19 Atorvastatin Calcium 80 mg PO DAILY 06/09/19 Pantoprazole Sodium 40 mg PO DAILY 06/09/19 Spironolactone 12.5 mg PO DAILY 06/09/19 Melatonin 5 mg PO 06/15/19 Ropinirole HCl [Requip -] 0.5 mg PO HS 06/15/19 levoFLOXacin [Levaquin -] 500 mg PO Q48H #3 tablet 06/16/19 Physical Exam Vital Signs: Vital Signs Temperature 98.3 F 06/16/19 11:15 Pulse Rate 90 06/16/19 12:20 Respiratory Rate 18 06/16/19 12:20 Blood Pressure 146/58 L 06/16/19 12:20 O2 Sat by Pulse Oximetry (%) 98 06/15/19 23:13 Labs: CBC, BMP 06/16/19 08:19 06/16/19 08:19
--- NOTE | 2019-06-16 12:41 | EKG ---
Test Reason : Blood Pressure : / mmHG Vent. Rate : 075 BPM Atrial Rate : 075 BPM P-R Int : 154 ms QRS Dur : 102 ms QT Int : 460 ms P-R-T Axes : 064 -07 153 degrees QTc Int : 513 ms NORMAL SINUS RHYTHM POSSIBLE LEFT ATRIAL ENLARGEMENT LEFT VENTRICULAR HYPERTROPHY WITH REPOLARIZATION ABNORMALITY PROLONGED QT ABNORMAL ECG WHEN COMPARED WITH ECG OF 09-JUN-2019 11:01, NO SIGNIFICANT CHANGE WAS FOUND Confirmed by JUAN AVILEZ, ANDREZ ([id number]) on 06/16/2019 12:40:50 PM Referred By: Confirmed By:ANDREZ MARTINEZ MD
[2019-06-16] MEDS ORDERED: CEFTRIAXONE 1 GM in DEXTROSE 5%-WATER - 50 ML IVPB SCH (13:00)
[2019-06-16 14:43] VITALS: BP 160/60; PULSE 91
--- NOTE | 2019-06-16 14:51 | DS ---
Physical Exam: SUBJECTIVE: Patient seen and examined OBJECTIVE: Vital Signs Period Temp Pulse Resp BP Sys/Horowitz Pulse Ox Last 24 Hr 98.1 F-98.3 F 81-94 18-20 106-153/40-77 98 PHYSICAL EXAM GENERAL: The patient is awake, alert, and fully oriented, in no acute distress. HEAD: Normal with no signs of trauma. EYES: PERRL, extraocular movements intact, sclera anicteric, conjunctiva clear. ENT: Ears normal, nares patent, oropharynx clear without exudates, moist mucous membranes. NECK: Trachea midline, full range of motion, supple. LUNGS: Breath sounds equal, clear to auscultation bilaterally, no wheezes, no crackles, no accessory muscle use. HEART: Regular rate and rhythm, S1, S2 without murmur, rub or gallop. ABDOMEN: Soft, nontender, nondistended, normoactive bowel sounds, no guarding, no rebound, no hepatosplenomegaly, no masses. EXTREMITIES: 2+ pulses, warm, well-perfused, no edema. NEUROLOGICAL: Cranial nerves II through XII grossly intact. Normal speech, gait not observed. PSYCH: Normal mood, normal affect. SKIN: Warm, dry, normal turgor, no rashes or lesions noted. LABS Laboratory Results - last 24 hr 06/15/19 06/15/19 06/16/19 12:58 21:48 05:44 WBC RBC Hgb Hct MCV MCH MCHC RDW Plt Count MPV Absolute Neuts (auto) Neutrophils % Lymphocytes % Monocytes % Eosinophils % Basophils % Nucleated RBC % Sodium Potassium Chloride Carbon Dioxide Anion Gap BUN Creatinine Est GFR (CKD-EPI)AfAm Est GFR (CKD-EPI)NonAf POC Glucometer 167 96 Random Glucose Hemoglobin A1c % Calcium Total Bilirubin AST ALT Alkaline Phosphatase Total Protein Albumin Urine RBC (Auto) >100 06/16/19 06/16/19 06/16/19 08:19 08:19 08:19 WBC 12.7 H RBC 3.07 L Hgb 9.5 L Hct 29.3 L MCV 95.3 MCH 30.8 MCHC 32.3 RDW 17.3 H Plt Count 190 MPV 8.0 Absolute Neuts (auto) 9.7 H Neutrophils % 76.4 Lymphocytes % 10.4 Monocytes % 7.4 Eosinophils % 5.0 H Basophils % 0.8 Nucleated RBC % 0 Sodium 139 Potassium 4.0 Chloride 103 Carbon Dioxide 23 Anion Gap 13 BUN 45.4 H Creatinine 8.0 H* Est GFR (CKD-EPI)AfAm 5.78 Est GFR (CKD-EPI)NonAf 4.99 POC Glucometer Random Glucose 88 Hemoglobin A1c % 7.4 H Calcium 8.4 L Total Bilirubin 0.7 AST 13 L ALT 14 Alkaline Phosphatase 173 H Total Protein 5.8 L Albumin 2.4 L Urine RBC (Auto) 06/16/19 10:47 WBC RBC Hgb Hct MCV MCH MCHC RDW Plt Count MPV Absolute Neuts (auto) Neutrophils % Lymphocytes % Monocytes % Eosinophils % Basophils % Nucleated RBC % Sodium Potassium Chloride Carbon Dioxide Anion Gap BUN Creatinine Est GFR (CKD-EPI)AfAm Est GFR (CKD-EPI)NonAf POC Glucometer 130 Random Glucose Hemoglobin A1c % Calcium Total Bilirubin AST ALT Alkaline Phosphatase Total Protein Albumin Urine RBC (Auto) HOSPITAL COURSE: Date of Admission:06/15/19 Patient is a 59 y/o F with hx of CAD s/p CABG, CMH s/p AICD, DM, ESRD on HD MWF , HTN presented to the ER after seeing blood in her urine. #Hemorrhagic cystitis likely 2/2 R Hydroureter vs UTI -CT scan was done which revealed right sided hydroureter without stones or masses. -FU Renal US showed resolution of hydronephrosis -patient symptoms improved. -will hold aspirin. will follow up with pcp this week to resume aspirin. #Symptomatic UTI -improved. -u/a positive -fU cultures -Start IV abx: Levaquin (Renally dosed). Patient allergic to penicillin. switch to PO and take for 5 more days after each dialysis session. -patient afebrile -monitor vital signs #Chronic Foot wound -wound care -levaquin on discharge #ESRD -nephro on board -likely HD in the am. patient with permacath Date of Discharge: 06/16/19 Minutes to complete discharge: 35 Discharge Summary Problems reviewed: Yes Reason For Visit: ACUTE HEMORRHAGIC CYSTITIS Current Active Problems ESRD (end stage renal disease) on dialysis (Acute) Hemorrhagic cystitis (Acute) Hydroureter on right (Acute) Ischemic cardiomyopathy (Acute) Systolic heart failure (Acute) Urinary problem in female (Acute) Condition: Stable - Instructions Diet, Activity, Other Instructions: You were here because you found blood in your urine and you were also found to have a UTI and an enlargement of your right ureter. The ureter enlargement resolved. You will need to take Augmentin (antibiotics) after Dialysis for the next 3 dialysis sessions. We held your aspirin because of the recent bleeding, follow up with your primary care physician so it can be restarted if needed. Follow up with your primary care doctor in 1 week. Follow up with your patient intake representative within 1 week. Follow up with wound care. Referrals: Eliud Kennedy MD [Primary Care Provider] - 1 Week Gilbert Pond MD [Staff Physician] - 1 Week Tom Galdamez DPM [Staff Physician] - 1 Week Disposition: HOME - Home Medications Comprehensive Discharge Medication List: Ambulatory Orders Fluticasone Prop 0.05% Nasal [Flonase -] 1 - 2 spray NS DAILY 02/03/19 Carvedilol [Coreg -] 3.125 mg PO BID tablet 04/04/19 Glimepiride [Amaryl -] 2 mg PO DAILY@0700 04/28/19 Collagenase Clostridium Hist. [Santyl -] 1 appful TP DAILY 05/19/19 Atorvastatin Calcium 80 mg PO DAILY 06/09/19 Pantoprazole Sodium 40 mg PO DAILY 06/09/19 Spironolactone 12.5 mg PO DAILY 06/09/19 Melatonin 5 mg PO 06/15/19 Ropinirole HCl [Requip -] 0.5 mg PO HS 06/15/19 Levofloxacin [Levaquin] 500 mg PO Q48H #3 tablet 06/16/19 This patient is new to me today: Yes Date on this admission: 06/16/19 Emergency Visit: Yes ED Registration Date: 06/15/19 Care time: The patient presented to the Emergency Department on the above date and was hospitalized for further evaluation of their emergent condition. Critical Care patient: No - Discharge Referral Referred to [facility] Med P.C.: No ATTENDING PHYSICIAN STATEMENT I saw and evaluated the patient. I reviewed the resident's note and discussed the case with the resident. I agree with the resident's findings and plan as documented. SUBJECTIVE: OBJECTIVE: ASSESSMENT AND PLAN:
[2019-06-16 16:02] LABS: BLOOD UREA NITROGEN 9.7 mg/dL (7-18); CREATININE 2.1 mg/dL (0.55-1.3); URIC ACID 1.2 mg/dL (2.6-7.2)
--- NOTE | 2019-06-16 16:27 | PN ---
Progress Note, Physician History of Present Illness: Pt is a wound care pt. Has left dressing on foot for 13 days now. - Current Medication List Current Medications: Active Medications Acetaminophen (Tylenol -) 650 mg PO Q4H PRN PRN Reason: PAIN LEVEL 4 - 6 Atorvastatin Calcium (Lipitor -) 80 mg PO DAILY [facility] Last Admin: 06/16/19 09:24 Dose: 80 mg Carvedilol (Coreg -) 3.125 mg PO BID [facility] Last Admin: 06/16/19 09:24 Dose: 3.125 mg Collagenase (Santyl -) 1 applic TP DAILY [facility]; Protocol Sodium Chloride (Normal Saline -) 250 mls @ 3,000 mls/hr IV PRN PRN PRN Reason: Hypotension during Dialysis Stop: 06/17/19 11:29 Insulin Aspart (Novolog Vial Sliding Scale -) 1 vial SQ ACHS [facility]; Protocol Last Admin: 06/16/19 11:06 Dose: Not Given Melatonin (Melatonin) 5 mg PO [facility] Last Admin: 06/15/19 21:56 Dose: 5 mg Ropinirole HCl (Requip -) 0.5 mg PO [facility] Last Admin: 06/16/19 00:15 Dose: 0.5 mg Spironolactone (Aldactone -) 12.5 mg PO DAILY [facility] Last Admin: 06/16/19 09:22 Dose: 12.5 mg - Objective Vital Signs: Vital Signs Temperature 98.3 F 06/16/19 14:20 Pulse Rate 91 H 06/16/19 14:30 Respiratory Rate 18 06/16/19 14:30 Blood Pressure 160/60 06/16/19 14:30 O2 Sat by Pulse Oximetry (%) 98 06/15/19 23:13 Extremities: Yes: Other (+wounds b/l feet, +localized cellulitis, +necrotic patches on toes,-karen drainage,) Labs: CBC, BMP 06/16/19 08:19 06/16/19 14:20 Assessment/Plan cellulitis chronic wounds Santyl to left foot dorsum daily. ID consulted. Pt states she is going home needs an appointment with Dr. Giraldo Vascular outpatient.
== END 2019-06-16 17:26 | disposition home or self-care (01) | DRG 689 ==
LOC: JER 11:54 → JERBED 16:32 → J6S 20:41
PROVIDERS: ADMIT Internal Medicine; ATTEND Internal Medicine
PROC: 5A1D70Z Performance of Urinary Filtration, Intermittent, Less than 6 Hours Per Day (ICD-10-PCS; principal; 2019-06-16)
DX: N30.91 Cystitis, unspecified with hematuria (principal); N18.6 End stage renal disease; I13.2 Hypertensive heart and chronic kidney disease with heart failure and with stage 5 chronic kidney disease, or end stage renal disease; L03.116 Cellulitis of left lower limb; I25.10 Atherosclerotic heart disease of native coronary artery without angina pectoris; N39.0 Urinary tract infection, site not specified; E11.22 Type 2 diabetes mellitus with diabetic chronic kidney disease; E78.00 Pure hypercholesterolemia, unspecified; I50.9 Heart failure, unspecified; N13.4 Hydroureter; J44.9 Chronic obstructive pulmonary disease, unspecified; Z88.0 Allergy status to penicillin; Z95.810 Presence of automatic (implantable) cardiac defibrillator; Z99.2 Dependence on renal dialysis; Z95.1 Presence of aortocoronary bypass graft
CPT/HCPCS: 36415; 74176-TC; 76775-TC; 80053; 81003; 82565; 82962; 83036; 84520; 84550; 85025; 87086; 87186; 93005; 93010; 99285-25; J0885

== ENCOUNTER 2019-06-30 13:40 | Inpatient (IN) | payer OTHER ==
--- NOTE | 2019-06-30 14:39 | PDOC ---
History of Present Illness - General Chief Complaint: Wound Stated Complaint: SENT BY PCP/FOOT PAIN Time Seen by Provider: 06/30/19 14:27 - History of Present Illness Initial Comments: 06/30/19 15:06 59 y/o F with hx of CAD s/p CABG, CMH s/p AICD, DM, ESRD on HD MWF, HTN presented to the ER with worsening gangrenous ulcer in both feet. She was evaluated and sent [facility] by Dr. Galdamez for admission for debridement. Patient admits that she started developing those wounds on both feet ever since she started dialysis. There are black ulcers on both heels that are hurting her more and more. CTA lower extremities was done today. Past History - Past Medical History Allergies/Adverse Reactions: Allergies Allergy/AdvReac Type Severity Reaction Status Date / Time Penicillins Allergy Severe RESPIRATORY Verified 06/30/19 14:00 DISTRESS prednisone AdvReac Severe disorientat Verified 06/30/19 14:00 ion gluten AdvReac Verified 06/30/19 14:00 morphine AdvReac disorientat Verified 06/30/19 14:00 ion BETA BLOCKERS Allergy Severe SEVERE Uncoded 06/30/19 14:00 HYPOTENSION Home Medications: Ambulatory Orders Fluticasone Prop 0.05% Nasal [Flonase -] 1 - 2 spray NS DAILY 02/03/19 Carvedilol [Coreg -] 3.125 mg PO BID tablet 04/04/19 Glimepiride [Amaryl -] 2 mg PO DAILY@0700 04/28/19 Collagenase Clostridium Hist. [Santyl -] 1 appful TP DAILY 05/19/19 Atorvastatin Calcium 80 mg PO DAILY 06/09/19 Pantoprazole Sodium 40 mg PO DAILY 06/09/19 Spironolactone 12.5 mg PO DAILY 06/09/19 Melatonin 5 mg PO 06/15/19 Ropinirole HCl [Requip -] 0.5 mg PO HS 06/15/19 Anemia: No Asthma: No Cancer: No Cardiac Disorders: Yes (CAD, AICD, CHF) CVA: No COPD: No CHF: Yes Dementia: No Diabetes: Yes (x4 yrs ago) Dialysis: Yes GI Disorders: No Disorders: Yes (ESRD) HTN: Yes Hypercholesterolemia: Yes Liver Disease: No Seizures: No Thyroid Disease: No - Surgical History Abdominal Surgery: No Appendectomy: No Cardiac Surgery: Yes (CABG 02/2015) Cholecystectomy: No Lung Surgery: No Neurologic Surgery: No Orthopedic Surgery: No - Immunization History Immunization Up to Date: No - Psycho Social/Smoking Cessation Hx Smoking Status: No Smoking History: Former smoker Have you smoked in the past 12 months: No Number of Cigarettes Smoked Daily: 0 If you are a former smoker, when did you quit?: 20 yrs ago Information on smoking cessation initiated: No Hx Alcohol Use: No Drug/Substance Use Hx: No Substance Use Type: None Hx Substance Use Treatment: No Review of Systems - Review of Systems Able to Perform ROS?: Yes Is the patient limited Syrian proficient: No Constitutional: No: Symptoms Reported HEENTM: No: Symptoms Reported Respiratory: No: Symptoms reported Cardiac (ROS): No: Symptoms Reported ABD/GI: No: Symptoms Reported : No: Symptoms Reported Integumentary: Yes: See HPI Neurological: No: Symptoms reported *Physical Exam - Vital Signs Last Vital Signs Temp Pulse Resp BP Pulse Ox 97.8 F 75 18 136/52 L 98 06/30/19 13:57 06/30/19 13:57 06/30/19 13:57 06/30/19 13:57 06/30/19 13:57 - Physical Exam General Appearance: Yes: Nourished, Appropriately Dressed. No: Apparent Distress HEENT: positive: EOMI, FABY, Normal ENT Inspection Respiratory/Chest: positive: Lungs Clear, Normal Breath Sounds. negative: Chest Tender, Respiratory Distress Cardiovascular: positive: Regular Rhythm, Regular Rate, S1, S2 Vascular Pulses: Dorsalis-Pedis (R): 2+, Doralis-Pedis (L): 2+ Gastrointestinal/Abdominal: positive: Normal Bowel Sounds, Flat, Soft. negative : Tender Musculoskeletal: positive: Normal Inspection. negative: CVA Tenderness Extremity: positive: Delayed Capillary Refill Integumentary: positive: Other (5x5cm necrotic area over b/l heels, 1cm area over 2nd R toe and over dorsum of left foot with some mild erythema around thos wounds. Toes are all warm. Delayed cap refill in all toes. ) ED Treatment Course - LABORATORY CBC & Chemistry Diagram: 06/30/19 15:15 06/30/19 15:15 Medical Decision Making - Medical Decision Making 06/30/19 15:40 59 y/o F with hx of CAD s/p CABG, CMH s/p AICD, DM, ESRD on HD MWF, HTN presented to the ER with worsening gangrenous ulcer in both feet. She was evaluated and sent from [facility] by Dr. Galdamez for admission for debridement. Labs drawn. PAtient admitted under Hospital under the care of Dr. Bose Discharge - Discharge Information Problems reviewed: Yes Clinical Impression/Diagnosis: Ischemic ulcer of both feet - Admission Yes - Follow up/Referral Referrals: Eliud Kennedy MD [Primary Care Provider] - - Patient Discharge Instructions - Post Discharge Activity
[2019-06-30 15:27] LABS: EOS % 4.2 % (0-4.5); HEMATOCRIT 27.7 % (32.4-45.2); LYMPH % 13.1 % (8-40); MCH 30.6 pg (25.7-33.7); MCHC 32.5 g/dl (32.0-36.0); MEAN CELL VOLUME 94.3 fl (80-96); MEAN PLT VOLUME 7.8 fl (7.5-11.1); MONO % 7.9 % (3.8-10.2); NEUT % 73.8 % (42.8-82.8); PLATELET COUNT 288 K/MM3 (134-434); RBC 2.93 M/mm3 (3.60-5.2); RDW 17.2 % (11.6-15.6); WHITE BLOOD COUNT 12.3 K/mm3 (4.0-10.0)
--- NOTE | 2019-06-30 15:50 | HP ---
CHIEF COMPLAINT: Bilateral foot ulcers Podiatry: Dr. Galdamez Vascular: Dr. Giraldo HISTORY OF PRESENT ILLNESS: 59 year-old female with a PMH significant for CAD, diastolic heart faillure s/p AICD, COPD, Type II IDDM, ESRD on HD (M,W,F), RLS, and bilateral foot ulcers. Several weeks ago patient had a vascular study and was told she had decreased circulation in her lower extremities. Today she had a scheduled CTA with runoff. After the test she was told to come to the ED to be admitted. Denies fever, sweats, chills. No significant change in foot wounds from chronic baseline. ER course was notable for: (1) WBC 12.3 (2) Cr 4.5 Recent Travel: No PAST MEDICAL HISTORY: Coronary artery disease Diastolic heart failure s/p AICD COPD Type II IDDM with retinopathy ESRD on dialysis Chronic foot wounds Restless leg syndrome PAST SURGICAL HISTORY: CABG x 4 (2014) x 2 Cataracts Right knee arthroscopy Pectoralis revision Permacath Social History: Smoking: quit 20 years ago, smoked for 10 years Alcohol: no Drugs: no Allergies Penicillins Allergy (Severe, Verified 06/30/19 14:00) RESPIRATORY DISTRESS rash and difficulty breathing prednisone Adverse Reaction (Severe, Verified 06/30/19 14:00) disorientation gluten Adverse Reaction (Verified 06/30/19 14:00) morphine Adverse Reaction (Verified 06/30/19 14:00) disorientation BETA BLOCKERS Allergy (Severe, Uncoded 06/30/19 14:00) SEVERE HYPOTENSION HOME MEDICATIONS: Home Medications Medication Instructions Recorded Fluticasone Prop 0.05% Nasal 1 - 2 spray NS DAILY 02/03/19 [Flonase -] Carvedilol [Coreg -] 3.125 mg PO BID tablet 04/04/19 Glimepiride [Amaryl -] 2 mg PO DAILY@0700 04/28/19 Collagenase Clostridium Hist. 1 appful TP DAILY 05/19/19 [Santyl -] Atorvastatin Calcium 80 mg PO DAILY 06/09/19 Pantoprazole Sodium 40 mg PO DAILY 06/09/19 Spironolactone 12.5 mg PO DAILY 06/09/19 Melatonin 5 mg PO 06/15/19 Ropinirole HCl [Requip -] 0.5 mg PO HS 06/15/19 REVIEW OF SYSTEMS CONSTITUTIONAL: Absent: fever, chills, diaphoresis, generalized weakness, malaise, loss of appetite, weight change HEENT: Absent: rhinorrhea, nasal congestion, throat pain, throat swelling, difficulty swallowing, mouth swelling, ear pain, eye pain, visual changes CARDIOVASCULAR: Absent: chest pain, syncope, palpitations, irregular heart rate, lightheadedness , peripheral edema RESPIRATORY: Absent: cough, shortness of breath, dyspnea with exertion, orthopnea, wheezing, stridor, hemoptysis GASTROINTESTINAL: Absent: abdominal pain, abdominal distension, nausea, vomiting, diarrhea, constipation, melena, hematochezia GENITOURINARY: Absent: dysuria, frequency, urgency, hesitancy, hematuria, flank pain, genital pain MUSCULOSKELETAL: Absent: myalgia, arthralgia, joint swelling, back pain, neck pain SKIN: +toe and foot wounds Absent: rash, itching, pallor HEMATOLOGIC/IMMUNOLOGIC: Absent: easy bleeding, easy bruising, lymphadenopathy, frequent infections ENDOCRINE: Absent: unexplained weight gain, unexplained weight loss, heat intolerance, cold intolerance NEUROLOGIC: Absent: headache, focal weakness or paresthesias, dizziness, unsteady gait, seizure, mental status changes, bladder or bowel incontinence PSYCHIATRIC: Absent: anxiety, depression, suicidal or homicidal ideation, hallucinations. PHYSICAL EXAMINATION Vital Signs - 24 hr 06/30/19 13:57 Temperature 97.8 F Pulse Rate 75 Respiratory 18 Rate Blood Pressure 136/52 L O2 Sat by Pulse 98 Oximetry (%) GENERAL: Awake, alert, and fully oriented, in no acute distress. HEAD: Normal with no signs of trauma. EYES: Pupils equal, round and reactive to light, extraocular movements intact, sclera anicteric, conjunctiva clear. LUNGS: Breath sounds equal, clear to auscultation bilaterally. No wheezes, and no crackles. No accessory muscle use. HEART: Regular rate and rhythm, normal S1 and S2 +murmur ABDOMEN: Soft, nontender, not distended MUSCULOSKELETAL: Normal range of motion at all joints. No bony deformities or tenderness. No CVA tenderness. UPPER EXTREMITIES: 2+ pulses, warm, well-perfused. No cyanosis. No clubbing. No peripheral edema. LOWER EXTREMITIES: Weak pulses, warm, well-perfused. LEFT FOOT: necrotic wounds first, second, third, fourth toes and area proximal to second and third toes; large necrotic heel wound; no erythema, warmth, swelling RIGHT FOOT: necrotic wounds second and fourth toes; large necrotic heel wound; no erythema, warmth, swelling NEUROLOGICAL: Cranial nerves II-XII intact. Normal speech. Self-positions easily PSYCHIATRIC: Cooperative. Good eye contact. Appropriate mood and affect. Laboratory Results - last 24 hr 06/30/19 15:15 WBC 12.3 H RBC 2.93 L Hgb 9.0 L Hct 27.7 L MCV 94.3 MCH 30.6 MCHC 32.5 RDW 17.2 H Plt Count 288 D MPV 7.8 Absolute Neuts (auto) 9.1 H Neutrophils % 73.8 Lymphocytes % 13.1 D Monocytes % 7.9 Eosinophils % 4.2 Basophils % 1.0 Nucleated RBC % 0 Home Medications Medication Instructions Recorded Fluticasone Prop 0.05% Nasal 1 - 2 spray NS DAILY 02/03/19 [Flonase -] Carvedilol [Coreg -] 3.125 mg PO BID tablet 04/04/19 Glimepiride [Amaryl -] 2 mg PO DAILY@0700 04/28/19 Collagenase Clostridium Hist. 1 appful TP DAILY 05/19/19 [Santyl -] Atorvastatin Calcium 80 mg PO DAILY 06/09/19 Pantoprazole Sodium 40 mg PO DAILY 06/09/19 Spironolactone 12.5 mg PO DAILY 06/09/19 Melatonin 5 mg PO 06/15/19 Ropinirole HCl [Requip -] 0.5 mg PO HS 06/15/19 ASSESSMENT/PLAN: 59 year-old female with a PMH significant for CAD, diastolic heart faillure s/p AICD, COPD, Type II IDDM, ESRD on HD (M,W,F), RLS, and bilateral foot ulcers. Peripheral vascular disease Bilateral ischemic foot ulcers --no signs of cellulitis --CTA done pending dictation --daily collagenase --podiatry and vascular to follow --will need cardiac clearance ESRD on dialysis --had HD yesterday but again today due to contrast load --renal following Type II IDDM --Novolog sliding scale coverage Coronary artery disease --continue carvedilol, statin Diastolic heart failure --continue spironolactone COPD --not on medication Restless leg --continue ropinirole FEN Fluids: PO intake adequate Electrolytes: replete as indicated Nutrition: diabetic DVT prophylaxis: subq heparin Dispo: continues to require inpatient care. Full code. Visit type - Emergency Visit Emergency Visit: Yes ED Registration Date: 06/30/19 Care time: The patient presented to the Emergency Department on the above date and was hospitalized for further evaluation of their emergent condition. - New Patient This patient is new to me today: Yes Date on this admission: 06/30/19 - Critical Care Critical Care patient: No
[2019-06-30 15:55] LABS: ALBUMIN 2.6 g/dl (3.4-5.0); BILIRUBIN,TOTAL 0.8 mg/dL (0.2-1); BLOOD UREA NITROGEN 22.1 mg/dL (7-18); CALCIUM 8.4 mg/dL (8.5-10.1); CREATININE 4.5 mg/dL (0.55-1.3); POTASSIUM 4.1 mmol/L (3.5-5.1); TOT PROT 6.6 g/dl (6.4-8.2)
[2019-06-30 16:09] LABS: INR 1.18 (0.83-1.09)
[2019-06-30 16:12] LABS: ACTIVATED PTT 32.2 SECONDS (25.2-36.5)
--- NOTE | 2019-06-30 16:12 | PDOC ---
Documentation entered by Linnea Olivarez SCRIBE, acting as scribe for Daniella Tang MD. Daniella Tang MD: This documentation has been prepared by the Sher holcomb Brenda, SCRIBE, under my direction and personally reviewed by me in its entirety. I confirm that the documentation accurately reflects all work, treatment, procedures, and medical decision making performed by me. Attending Attestation - Resident Resident Name: Adolfo Robb - ED Attending Attestation I have performed the following: I have examined & evaluated the patient, The case was reviewed & discussed with the resident, I agree w/resident's findings & plan, Exceptions are as noted - HPI HPI: 06/30/19 15:03 The patient is a 59 year old female, with a significant PMH of CAD (s/p CABG), ESRD (on HD), CHF (s/p AICD), DM, HTN, HLD, and chronic left foot wound, who presents to the ED by Dr. Alexis for evaluation of ischemia shown on CTA. The patient denies any worsening symtpoms. Denies chest pain, shortness of breath, headache and dizziness. Denies fever, chills, nausea, vomiting, diarrhea and constipation. Denies dysuria, frequency, urgency and hematuria. Allergies: NKA Social history: No reported hx of tobacco use, alcohol use or illicit drug use. PCP: Brent - Physicial Exam PE: 06/30/19 15:05 GENERAL: Awake, alert, and fully oriented, in no acute distress HEAD: No signs of trauma EYES: PERRLA, EOMI, sclera anicteric, conjunctiva clear ENT: Auricles normal inspection, hearing grossly normal, nares patent, oropharynx clear without exudates. Moist mucosa NECK: Normal ROM, supple, no lymphadenopathy, JVD, or masses LUNGS: Breath sounds equal, clear to auscultation bilaterally. No wheezes, and no crackles HEART: Regular rate and rhythm, normal S1 and S2, no murmurs, rubs or gallops ABDOMEN: Soft, nontender, normoactive bowel sounds. No guarding, no rebound. No masses EXTREMITIES:(+) 2+ chiles pedis pulses bilaterally. (+) Scabs on toes bilaterlly.(+) Poor capillary refill bilateral Normal range of motion. No clubbing or cyanosis. No cords. NEUROLOGICAL: Cranial nerves II through XII grossly intact. Normal speech, normal gait SKIN: Warm, Dry, normal turgor, no rashes or lesions noted. - Medical Decision Making 06/30/19 15:53 pt presents to the ED after sent in for worsening wounds and ? ischemia on CTA. SEnt by Stephanian for admission. Will admit to medicine for continued management.
--- NOTE | 2019-06-30 16:38 | CONSULT ---
Consult Consult Specialty:: Nephrology Reason for Consultation:: ESRD - History of Present Illness Chief Complaint: sent in for foot infection History of Present Illness: Pt is a 59 year old female with pmhx of esrd, chf, and anemia who was sent in for worsening lower ext ulcers. I was called to evaluate her for HD. She last had HD yesterday. She went for her angiogram today. She denies shortness of breath. She denies fevers or chills. - History Source History Provided By: Patient, Medical Record - Past Medical History ARBORIST: Yes: Vertigo Cardio/Vascular: Yes: CAD Pulmonary: Yes: COPD Renal/: Yes: Renal Failure, Hemodialysis Endocrine: Yes: Diabetes Mellitus - Past Surgical History Past Surgical History: Yes: Arthrosocopy (Rt knee surgery in her 20s secondary to chrondomalacia), CABG - Alcohol/Substance Use Hx Alcohol Use: No History of Substance Use: reports: None - Smoking History Smoking history: Former smoker Have you smoked in the past 12 months: No Aproximately how many cigarettes per day: 0 If you are a former smoker, when did you quit?: 20 yrs ago - Social History Usual Living Arrangement: Other (adult children) ADL: Independent 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 Home Medications - Allergies Allergies/Adverse Reactions: Allergies Allergy/AdvReac Type Severity Reaction Status Date / Time Penicillins Allergy Severe RESPIRATORY Verified 06/30/19 14:00 DISTRESS prednisone AdvReac Severe disorientat Verified 06/30/19 14:00 ion gluten AdvReac Verified 06/30/19 14:00 morphine AdvReac disorientat Verified 06/30/19 14:00 ion BETA BLOCKERS Allergy Severe SEVERE Uncoded 06/30/19 14:00 HYPOTENSION - Home Medications Home Medications: Ambulatory Orders Fluticasone Prop 0.05% Nasal [Flonase -] 1 - 2 spray NS DAILY 02/03/19 Carvedilol [Coreg -] 3.125 mg PO BID tablet 04/04/19 Glimepiride [Amaryl -] 2 mg PO DAILY@0700 04/28/19 Collagenase Clostridium Hist. [Santyl -] 1 appful TP DAILY 05/19/19 Atorvastatin Calcium 80 mg PO DAILY 06/09/19 Pantoprazole Sodium 40 mg PO DAILY 06/09/19 Spironolactone 12.5 mg PO DAILY 01/23/20 Melatonin 5 mg PO 06/15/19 Ropinirole HCl [Requip -] 0.5 mg PO HS 06/15/19 Family Medical History Family History: Denies Review of Systems - Review of Systems Constitutional: reports: Malaise Eyes: reports: No Symptoms HENT: reports: No Symptoms Neck: reports: No Symptoms Cardiovascular: reports: No Symptoms Respiratory: reports: No Symptoms Gastrointestinal: reports: No Symptoms Genitourinary: reports: No Symptoms Musculoskeletal: reports: No Symptoms Integumentary: reports: No Symptoms Neurological: reports: No Symptoms Endocrine: reports: No Symptoms Hematology/Lymphatic: reports: No Symptoms Physical Exam Vital Signs: Vital Signs Temperature 97.8 F 06/30/19 13:57 Pulse Rate 75 06/30/19 13:57 Respiratory Rate 18 06/30/19 13:57 Blood Pressure 136/52 L 06/30/19 13:57 O2 Sat by Pulse Oximetry (%) 98 06/30/19 13:57 Constitutional: Yes: Calm Eyes: Yes: Conjunctiva Clear HENT: Yes: Atraumatic Cardiovascular: Yes: S1, S2 Gastrointestinal: Yes: Soft Musculoskeletal: Yes: WNL Edema: No Neurological: Yes: Oriented Psychiatric: Yes: Oriented Labs: CBC, BMP 06/30/19 15:15 06/30/19 15:15 Assessment/Plan Impression 1. ESRD 2. CHF 3. DM 4. HTN 5. hyperlipidemia 6. nephrotic range proteinuria 7. CAD 8. s/p ct angio 9. lower ext wounds/gangrene Plan - will arrange for HD as she had the ct angio - renal diet - wound care - discussed plan with medical team
[2019-06-30] MEDS ORDERED: SODIUM CHLORIDE 250 ML IV PRN ×2 (16:39→17:30)
[2019-06-30] MEDS ORDERED: EPOETIN ALFA 10,000 UNIT/1 ML VIAL IVPUSH ONE (17:45)
[2019-06-30] MEDS: INSULIN SLIDING SCALE (NOVOLOG) 1 VIAL SQ SCH (21:52)
[2019-06-30] MEDS: rOPINIRole HCL 0.5 MG TABLET PO SCH (22:31)
[2019-06-30] MEDS: MELATONIN 5 MG TABLETS PO SCH (22:33)
[2019-06-30] MEDS: CARVEDILOL 3.125 MG TABLET (FP) PO SCH (22:33)
[2019-06-30] MEDS: ATORVASTATIN CA 80 MG TABLET (FP) PO SCH (22:34)
[2019-06-30] MEDS: HEPARIN NA (PORCINE) 5,000 UNITS/ML 1ML VIAL SQ SCH (22:35)
[2019-07-01 00:09] VITALS: BMI 22.1
[2019-07-01] MEDS: HEPARIN NA (PORCINE) 5,000 UNITS/ML 1ML VIAL SQ SCH ×3 (05:54→22:41)
[2019-07-01] MEDS: INSULIN SLIDING SCALE (NOVOLOG) 1 VIAL SQ SCH ×4 (06:56→22:46)
[2019-07-01 07:51] LABS: ALBUMIN 2.2 g/dl (3.4-5.0); BILIRUBIN,TOTAL 0.9 mg/dL (0.2-1); BLOOD UREA NITROGEN 7.4 mg/dL (7-18); CALCIUM 8.4 mg/dL (8.5-10.1); CREATININE 2.5 mg/dL (0.55-1.3); MAGNESIUM 1.8 mg/dL (1.8-2.4); PHOSPHOROUS 2.3 mg/dL (2.5-4.9); POTASSIUM 3.6 mmol/L (3.5-5.1); TOT PROT 5.6 g/dl (6.4-8.2)
[2019-07-01 08:09] LABS: BASO % 1.1 % (0-2.0); EOS % 5.8 % (0-4.5); HEMATOCRIT 24.6 % (32.4-45.2); HEMOGLOBIN 8.2 GM/dL (10.7-15.3); LYMPH % 14.9 % (8-40); MCH 31.2 pg (25.7-33.7); MCHC 33.5 g/dl (32.0-36.0); MONO % 9.6 % (3.8-10.2); NEUT % 68.6 % (42.8-82.8); PLATELET COUNT 265 K/MM3 (134-434); RBC 2.64 M/mm3 (3.60-5.2); RDW 16.9 % (11.6-15.6); WHITE BLOOD COUNT 8.9 K/mm3 (4.0-10.0)
--- NOTE | 2019-07-01 09:11 | PN ---
Progress Note, Physician Chief Complaint: Examined sitting in bed. States she is having increased pain in LE due to chonic wounds. Awaiting HD History of Present Illness: 59 year-old female with a PMH significant for CAD, diastolic heart faillure s/p AICD, COPD, Type II IDDM, ESRD on HD (M,W,F), RLS, and bilateral foot ulcers. Several weeks ago patient had a vascular study and was told she had decreased circulation in her lower extremities. Today she had a scheduled CTA with runoff. After the test she was told to come to the ED to be admitted. Denies fever, sweats, chills. No significant change in foot wounds from chronic baseline. - Current Medication List Current Medications: Active Medications Acetaminophen (Tylenol -) 650 mg PO Q6H PRN PRN Reason: MILD PAIN Atorvastatin Calcium (Lipitor -) 80 mg PO HS [facility] Last Admin: 06/30/19 22:34 Dose: Not Given Carvedilol (Coreg -) 3.125 mg PO BID [facility] Last Admin: 06/30/19 22:33 Dose: 3.125 mg Collagenase (Santyl -) 1 applic TP DAILY [facility]; Protocol Fluticasone Propionate (Flonase -) 1 spray NS DAILY [facility] Heparin Sodium (Porcine) (Heparin -) 5,000 unit SQ TID [facility] Last Admin: 07/01/19 05:54 Dose: Not Given Sodium Chloride (Normal Saline -) 250 mls @ 3,000 mls/hr IV PRN PRN PRN Reason: Hypotension during Dialysis Stop: 07/01/19 16:39 Sodium Chloride (Normal Saline -) 250 mls @ 3,000 mls/hr IV PRN PRN PRN Reason: Hypotension during Dialysis Stop: 07/01/19 17:29 Insulin Aspart (Novolog Vial Sliding Scale -) 1 vial SQ ACHS [facility]; Protocol Last Admin: 07/01/19 06:56 Dose: Not Given Melatonin (Melatonin) 5 mg PO HS [facility] Last Admin: 06/30/19 22:33 Dose: 5 mg Pantoprazole Sodium (Protonix -) 40 mg PO DAILY [facility] Ropinirole HCl (Requip -) 0.5 mg PO HS [facility] Last Admin: 06/30/19 22:31 Dose: 0.5 mg Spironolactone (Aldactone -) 12.5 mg PO DAILY [facility] - Objective Vital Signs: Vital Signs Temperature 98.7 F 07/01/19 06:00 Pulse Rate 79 07/01/19 06:00 Respiratory Rate 20 07/01/19 06:00 Blood Pressure 145/69 07/01/19 06:00 O2 Sat by Pulse Oximetry (%) 98 07/01/19 01:00 Constitutional: Yes: Well Nourished, No Distress, Calm Eyes: Yes: WNL, Conjunctiva Clear HENT: Yes: WNL, Atraumatic, Normocephalic Neck: Yes: WNL, Supple, Trachea Midline Cardiovascular: Yes: WNL, Regular Rate and Rhythm, Murmur (systolic) Respiratory: Yes: WNL, Regular, CTA Bilaterally, Other (right chest wall permacath. No erythema/tenderness) Gastrointestinal: Yes: WNL, Normal Bowel Sounds ...Rectal Exam: Yes: Deferred Genitourinary: Yes: Other (On HD. Make some urine still) Breast(s): Yes: WNL Musculoskeletal: Yes: WNL Extremities: Yes: Other (LEFT FOOT: necrotic wounds first, second, third, fourth toes and area proximal to second and third toes; large necrotic heel wound; no erythema, warmth, swelling RIGHT FOOT: necrotic wounds second and fourth toes; large necrotic heel wound; no erythema, warmth, swelling) Edema: No Peripheral Pulses WNL: No Peripheral Pulses: Left Radial: 2+, Right Radial: 2+, Left Doralis Pedis: 1+, Right Dorsalis Pedis: 1+, Left Femoral: 2+, Right Femoral: 2+ Integumentary: Yes: Other (see above) Wound/Incision: Yes: Dressing Dry and Intact Neurological: Yes: WNL, Alert, Oriented ...Motor Strength: WNL Psychiatric: Yes: WNL Labs: CBC, BMP 07/01/19 06:35 07/01/19 06:35 INR, PTT INR 1.18 (0.83-1.09) H 06/30/19 15:15 - ....Imaging Cat Scan: Pending (CTA of lower extrem) Problem List - Problems (1) Diabetes Assessment/Plan: BGM AC/HS with novolog sliding scale diabetic diet Code(s): E11.9 - TYPE 2 DIABETES MELLITUS WITHOUT COMPLICATIONS (2) Ischemic ulcer of both feet Assessment/Plan: chronic ulceer of heels follwoing in wound clinic pending intervention based on CTA results Code(s): L97.519 - NON-PRS CHRONIC ULCER OTH PRT RIGHT FOOT W UNSP SEVERITY; L97.529 - NON-PRESSURE CHRONIC ULCER OTH PRT LEFT FOOT W UNSP SEVERITY (3) Acute kidney injury superimposed on CKD Assessment/Plan: on HD Followed by Dr Pond dialyzed last night as she got contrast arranged for short HD run tomorrow then will resume MWF schedule Code(s): N17.9 - ACUTE KIDNEY FAILURE, UNSPECIFIED; N18.9 - CHRONIC KIDNEY DISEASE, UNSPECIFIED (4) COPD (chronic obstructive pulmonary disease) Assessment/Plan: stable Code(s): J44.9 - CHRONIC OBSTRUCTIVE PULMONARY DISEASE, UNSPECIFIED (5) ESRD (end stage renal disease) on dialysis Assessment/Plan: on HD Code(s): N18.6 - END STAGE RENAL DISEASE; Z99.2 - DEPENDENCE ON RENAL DIALYSIS (6) Prophylactic measure Assessment/Plan: FEN Fluids: adequate PO intake Electrolytes: monitor & replete as needed Nutrition: diabetic/renaldiet DVT moderate risk sq heparin Dispo Maintain as inpatient full code discharge planning Code(s): Z29.9 - ENCOUNTER FOR PROPHYLACTIC MEASURES, UNSPECIFIED (7) CHF (congestive heart failure) Assessment/Plan: --continue carvedilol, statin Code(s): I50.9 - HEART FAILURE, UNSPECIFIED (8) Coronary artery disease Assessment/Plan: AD s/p CABG (4 vessel, 2014) Code(s): I25.10 - ATHSCL HEART DISEASE OF [place] CORONARY ARTERY W/O ANG PCTRS Qualifiers: Coronary Disease-Associated Artery/Lesion type: [place] artery [place] vs. transplanted heart: [place] heart Associated angina: without angina Qualified Code(s): I25.10 - Atherosclerotic heart disease of [place] coronary artery without angina pectoris (9) Restless leg syndrome Assessment/Plan: c/w ropinerole Code(s): G25.81 - RESTLESS LEGS SYNDROME (10) Anemia in chronic kidney disease Assessment/Plan: c/w eopgen Code(s): N18.9 - CHRONIC KIDNEY DISEASE, UNSPECIFIED; D63.1 - ANEMIA IN CHRONIC KIDNEY DISEASE Visit type - Emergency Visit Emergency Visit: Yes ED Registration Date: 06/30/19 Care time: The patient presented to the Emergency Department on the above date and was hospitalized for further evaluation of their emergent condition. - New Patient This patient is new to me today: Yes Date on this admission: 07/01/19 - Critical Care Critical Care patient: No - Discharge Referral Referred to [facility] Med P.C.: No
[2019-07-01] MEDS ORDERED: COLLAGENASE CLOSTRIDIUM HIST. 30 GRAMS TUBE TP SCH (10:00)
[2019-07-01] MEDS ORDERED: PT OWN MED DRAWER 7, Y5N ONE ×2 (10:17→22:21)
[2019-07-01] MEDS: CARVEDILOL 3.125 MG TABLET (FP) PO SCH ×2 (10:23→22:41)
[2019-07-01] MEDS: SPIRONOLACTONE 25 MG TABLET (FP) PO SCH ×2 (10:23→10:38)
[2019-07-01] MEDS: PANTOPRAZOLE 40 MG TABLET PO SCH (10:23)
[2019-07-01] MEDS: FLUTICASONE PROP 0.05% 16 GM NASAL SPRAY NS SCH (10:29)
--- NOTE | 2019-07-01 17:10 | CONSULT ---
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: Vertigo Cardio/Vascular: Yes: CAD Pulmonary: Yes: COPD Renal/: Yes: Renal Failure, Hemodialysis Endocrine: Yes: Diabetes Mellitus - Past Surgical History Past Surgical History: Yes: Arthrosocopy (Rt knee surgery in her 20s secondary to chrondomalacia), CABG - Alcohol/Substance Use Hx Alcohol Use: No History of Substance Use: reports: None - Smoking History Smoking history: Former smoker Have you smoked in the past 12 months: No Aproximately how many cigarettes per day: 0 If you are a former smoker, when did you quit?: 20 yrs ago - Social History Usual Living Arrangement: Other (adult children) ADL: Independent 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 Home Medications - Allergies Allergies/Adverse Reactions: Allergies Allergy/AdvReac Type Severity Reaction Status Date / Time Penicillins Allergy Severe RESPIRATORY Verified 06/30/19 14:00 DISTRESS prednisone AdvReac Severe disorientat Verified 06/30/19 14:00 ion gluten AdvReac Verified 06/30/19 14:00 morphine AdvReac disorientat Verified 06/30/19 14:00 ion BETA BLOCKERS Allergy Severe SEVERE Uncoded 06/30/19 14:00 HYPOTENSION - Home Medications Home Medications: Ambulatory Orders Fluticasone Prop 0.05% Nasal [Flonase -] 1 - 2 spray NS DAILY 02/03/19 Carvedilol [Coreg -] 3.125 mg PO BID tablet 04/04/19 Glimepiride [Amaryl -] 2 mg PO DAILY@0700 04/28/19 Collagenase Clostridium Hist. [Santyl -] 1 appful TP DAILY 05/19/19 Atorvastatin Calcium 80 mg PO DAILY 06/09/19 Pantoprazole Sodium 40 mg PO DAILY 06/09/19 Spironolactone 12.5 mg PO DAILY 06/09/19 Melatonin 5 mg PO DAILY 06/15/19 Ropinirole HCl [Requip -] 0.5 mg PO HS 06/15/19 Physical Exam Vital Signs: Vital Signs Temperature 98.6 F 07/01/19 14:59 Pulse Rate 82 07/01/19 14:59 Respiratory Rate 20 07/01/19 14:59 Blood Pressure 143/63 07/01/19 14:59 O2 Sat by Pulse Oximetry (%) 98 07/01/19 09:00 Extremities: Yes: Other (+necrotic wounds b/l heels, left forefoot gangarene 2nd toe, +ischemic wounds right foot as well,) Labs: CBC, BMP 07/01/19 06:35 07/01/19 06:35 Imaging - Results Cat Scan: Report Reviewed Assessment/Plan pvd ischemic wounds Santyl to wounds b/l feet. Awaiting possible vascular intervention. Will follow. Offload heels b/l with pillow under calf.
[2019-07-01] MEDS ORDERED: SODIUM CHLORIDE 250 ML IV PRN (17:35)
--- NOTE | 2019-07-01 17:35 | PN ---
Progress Note, Physician History of Present Illness: Pt seen and examined at bedside. She is awake and alert. - Current Medication List Current Medications: Active Medications Acetaminophen (Tylenol -) 650 mg PO Q6H PRN PRN Reason: MILD PAIN Atorvastatin Calcium (Lipitor -) 80 mg PO HS [facility] Last Admin: 06/30/19 22:34 Dose: Not Given Carvedilol (Coreg -) 3.125 mg PO BID [facility] Last Admin: 07/01/19 10:23 Dose: 3.125 mg Collagenase (Santyl -) 1 applic TP DAILY [facility]; Protocol Fluticasone Propionate (Flonase -) 1 spray NS DAILY [facility] Last Admin: 07/01/19 10:29 Dose: 1 spray Heparin Sodium (Porcine) (Heparin -) 5,000 unit SQ TID [facility] Last Admin: 07/01/19 14:25 Dose: Not Given Insulin Aspart (Novolog Vial Sliding Scale -) 1 vial SQ ACHS [facility]; Protocol Last Admin: 07/01/19 17:24 Dose: 2 units Melatonin (Melatonin) 5 mg PO HS [facility] Last Admin: 06/30/19 22:33 Dose: 5 mg Pantoprazole Sodium (Protonix -) 40 mg PO DAILY [facility] Last Admin: 07/01/19 10:23 Dose: 40 mg Ropinirole HCl (Requip -) 0.5 mg PO HS [facility] Last Admin: 06/30/19 22:31 Dose: 0.5 mg Spironolactone (Aldactone -) 12.5 mg PO DAILY [facility] Last Admin: 07/01/19 10:38 Dose: Not Given - Objective Vital Signs: Vital Signs Temperature 98.6 F 07/01/19 14:59 Pulse Rate 82 07/01/19 14:59 Respiratory Rate 20 07/01/19 14:59 Blood Pressure 143/63 07/01/19 14:59 O2 Sat by Pulse Oximetry (%) 98 07/01/19 09:00 Constitutional: Yes: Calm Eyes: Yes: Conjunctiva Clear HENT: Yes: Atraumatic Cardiovascular: Yes: S1, S2 Respiratory: Yes: CTA Bilaterally Gastrointestinal: Yes: Soft Genitourinary: Yes: WNL Edema: No Neurological: Yes: Oriented Psychiatric: Yes: Oriented Labs: CBC, BMP 07/01/19 06:35 07/01/19 06:35 INR, PTT INR 1.18 (0.83-1.09) H 02/13/20 15:15 Assessment/Plan Current Medications Generic Name Dose Route Start Last Admin Trade Name Freq PRN Reason Stop Dose Admin Acetaminophen 650 mg 06/30/19 21:06 Tylenol - PO Q6H PRN MILD PAIN Atorvastatin Calcium 80 mg 06/30/19 22:00 06/30/19 22:34 Lipitor - PO Not Given HS [facility]NA Carvedilol 3.125 mg 06/30/19 22:00 07/01/19 10:23 Coreg - PO 3.125 mg BID [facility] Administration Collagenase 1 applic 07/01/19 17:20 Santyl - TP DAILY [facility] Protocol Fluticasone Propionate 1 spray 07/01/19 10:00 07/01/19 10:29 Flonase - NS 1 spray DAILY [facility] Administration Heparin Sodium (Porcine) 5,000 unit 06/30/19 22:00 07/01/19 14:25 Heparin - SQ Not Given TID [facility] Insulin Aspart 1 vial 06/30/19 22:00 07/01/19 17:24 Novolog Vial Sliding Scale - SQ 2 units ACHS [facility] Administration Protocol Melatonin 5 mg 06/30/19 22:00 06/30/19 22:33 Melatonin PO 5 mg HS [facility] Administration Pantoprazole Sodium 40 mg 07/01/19 10:00 07/01/19 10:23 Protonix - PO 40 mg DAILY [facility] Administration Ropinirole HCl 0.5 mg 06/30/19 22:00 06/30/19 22:31 Requip - PO 0.5 mg HS [facility] Administration Spironolactone 12.5 mg 07/01/19 10:00 07/01/19 10:38 Aldactone - PO Not Given DAILY [facility] Laboratory Tests 06/15/19 06/15/19 06/16/19 12:39 12:58 08:19 WBC 12.7 H Hgb 10.0 L 9.5 L BUN Creatinine Urine pH 8.5 H D Urine Protein 3+ H Urine Blood 3+ H Ur Leukocyte Esterase 3+ H Urine RBC (Auto) >100 06/16/19 08:19 WBC Hgb BUN 45.4 H Creatinine 8.0 H* Urine pH Urine Protein Urine Blood Ur Leukocyte Esterase Urine RBC (Auto) Impression 1. ESRD 2. CHF 3. DM 4. HTN 5. hyperlipidemia 6. nephrotic range proteinuria 7. CAD 8. s/p ct angio 9. lower ext wounds/gangrene Plan - will arrange for short HD run tomorrow - PT MWF schedule - dialyzed last night as she got contrast - wound care
[2019-07-01 21:05] LABS: PH,URINE 7.5 (5.0-8.0); URINE APPEARANCE Slightly Cloudy; URINE BILIRUBIN Negative (NEGATIVE); URINE COLOR Yellow; URINE GLUCOSE (UA) Negative (NEGATIVE); URINE KETONE Negative (NEGATIVE); URINE LEUK ESTERASE 1+ (NEGATIVE); URINE NITRITE Negative (NEGATIVE); URINE PROTEIN 3+ (NEGATIVE); URINE UROBILINOGEN 0.2 mg/dL (0.2-1.0)
[2019-07-01] MEDS: MELATONIN 5 MG TABLETS PO SCH (22:40)
[2019-07-01] MEDS: ATORVASTATIN CA 80 MG TABLET (FP) PO SCH (22:41)
[2019-07-01] MEDS: rOPINIRole HCL 0.5 MG TABLET PO SCH (22:42)
[2019-07-02] MEDS: ACETAMINOPHEN 325 MG TABLET (FP) PO PRN ×2 (06:30→11:47)
[2019-07-02] MEDS: HEPARIN NA (PORCINE) 5,000 UNITS/ML 1ML VIAL SQ SCH ×3 (06:39→22:20)
[2019-07-02] MEDS: INSULIN SLIDING SCALE (NOVOLOG) 1 VIAL SQ SCH ×4 (06:39→22:21)
[2019-07-02 07:42] LABS: HEMATOCRIT 24.4 % (32.4-45.2); HEMOGLOBIN 8.2 GM/dL (10.7-15.3); MCH 31.6 pg (25.7-33.7); MCHC 33.6 g/dl (32.0-36.0); MEAN CELL VOLUME 94.1 fl (80-96); MEAN PLT VOLUME 7.6 fl (7.5-11.1); PLATELET COUNT 277 K/MM3 (134-434); RBC 2.59 M/mm3 (3.60-5.2); WHITE BLOOD COUNT 9.1 K/mm3 (4.0-10.0)
[2019-07-02] MEDS ORDERED: INSULIN (NOVOLOG) ASPART 100 UNITS/ML 10ML VIAL ONE ×2 (07:42→17:35)
[2019-07-02] MEDS ORDERED: INSULIN (LEVEMIR) 100 UNITS/ML UNITS SQ ONE (07:43)
[2019-07-02] MEDS ORDERED: INSULIN (NOVOLOG MIX 70/30) 100 UNITS/ML MDV SQ ONE (07:43)
[2019-07-02 08:20] LABS: CALCIUM 8.2 mg/dL (8.5-10.1); CREATININE 4.7 mg/dL (0.55-1.3); POTASSIUM 3.5 mmol/L (3.5-5.1)
[2019-07-02] MEDS ORDERED: EPOETIN ALFA 10,000 UNIT/1 ML VIAL IVPUSH ONE (09:00)
--- NOTE | 2019-07-02 10:41 | PN ---
Progress Note (short form) - Note Progress Note: RENAL currently undergoing hd doing well reading Last Vital Signs Temp Pulse Resp BP Pulse Ox 97.7 F 73 18 155/60 97 07/02/19 08:15 07/02/19 09:50 07/02/19 09:50 07/02/19 09:50 07/01/19 21:00 lungs clear cvs s1s2 rr abd soft ext no edema poor pulses neuro a+ox3 CBC, BMP 07/02/19 07:22 07/02/19 07:22 Current Medications Generic Name Dose Route Start Last Admin Trade Name Freq PRN Reason Stop Dose Admin Acetaminophen 650 mg 06/30/19 21:06 07/02/19 06:30 Tylenol - PO 650 mg Q6H PRN Administration MILD PAIN Atorvastatin Calcium 80 mg 06/30/19 22:00 07/01/19 22:41 Lipitor - PO Not Given HS [facility] Carvedilol 3.125 mg 06/30/19 22:00 07/01/19 22:41 Coreg - PO 3.125 mg BID [facility] Administration Collagenase 1 applic 07/01/19 17:20 Santyl - TP DAILY [facility] Protocol Fluticasone Propionate 1 spray 07/01/19 10:00 07/01/19 10:29 Flonase - NS 1 spray DAILY [facility] Administration Heparin Sodium (Porcine) 5,000 unit 06/30/19 22:00 07/02/19 06:39 Heparin - SQ Not Given TID [facility] Insulin Aspart 1 vial 06/30/19 22:00 07/02/19 06:39 Novolog Vial Sliding Scale - SQ Not Given ACHS [facility] Protocol Melatonin 5 mg 06/30/19 22:00 07/01/19 22:40 Melatonin PO 5 mg HS [facility] Administration Pantoprazole Sodium 40 mg 07/01/19 10:00 07/01/19 10:23 Protonix - PO 40 mg DAILY [facility] Administration Ropinirole HCl 0.5 mg 06/30/19 22:00 07/01/19 22:42 Requip - PO 0.5 mg HS [facility] Administration Impression 1. ESRD 2. CHF 3. DM 4. HTN 5. hyperlipidemia 6. nephrotic range proteinuria 7. CAD 8. s/p ct angio 9. lower ext wounds/gangrene Plan will make no changes will be dialyzed again thursday since its her usual time vascular follow up MV
--- NOTE | 2019-07-02 11:06 | PN ---
Progress Note (short form) - Note Progress Note: Vascular Surgery Bl lower ext ischemic wounds to both feet. Seen in the office. Pt will need CTA aorta, bl lower ext runoff right before HD. pt will also need vein mapping to place avf. Pt has permacath on right chest. Carlos Enrique Giraldo DO
[2019-07-02] MEDS: FLUTICASONE PROP 0.05% 16 GM NASAL SPRAY NS SCH (11:47)
[2019-07-02] MEDS: CARVEDILOL 3.125 MG TABLET (FP) PO SCH ×2 (11:47→22:20)
[2019-07-02] MEDS: PANTOPRAZOLE 40 MG TABLET PO SCH (11:47)
[2019-07-02] MEDS: COLLAGENASE CLOSTRIDIUM HIST. 30 GRAMS TUBE TP SCH (11:48)
--- NOTE | 2019-07-02 16:44 | PN ---
Physical Exam: SUBJECTIVE: Patient seen and examined. She complains of pain in her heels. OBJECTIVE: Vital Signs Period Temp Pulse Resp BP Sys/Horowitz Pulse Ox Last 24 Hr 97.5 F-99.3 F 68-85 17-20 111-155/41-79 97 GENERAL: The patient is awake, alert, and fully oriented, in no acute distress. LUNGS: Breath sounds equal, clear to auscultation bilaterally, no wheezes, no crackles, no accessory muscle use. HEART: Regular rate and rhythm, S1, S2 without murmur, rub or gallop. ABDOMEN: Soft, nontender, nondistended, normoactive bowel sounds, no guarding, no rebound, no hepatosplenomegaly, no masses. EXTREMITIES: 2+ pulses, warm, well-perfused, no edema. Laboratory Results - last 24 hr 07/01/19 07/01/19 07/02/19 20:04 22:44 06:32 WBC RBC Hgb Hct MCV MCH MCHC RDW Plt Count MPV Sodium Potassium Chloride Carbon Dioxide Anion Gap BUN Creatinine Est GFR (CKD-EPI)AfAm Est GFR (CKD-EPI)NonAf POC Glucometer 188 116 Random Glucose Calcium Urine Color Yellow Urine Appearance Slightly cloudy Urine pH 7.5 Ur Specific [place] 1.020 Urine Protein 3+ H Urine Glucose (UA) Negative Urine Ketones Negative Urine Blood 2+ H Urine Nitrite Negative Urine Bilirubin Negative Urine Urobilinogen 0.2 Ur Leukocyte Esterase 1+ H 07/02/19 07/02/19 07/02/19 07:22 07:22 11:51 WBC 9.1 RBC 2.59 L Hgb 8.2 L Hct 24.4 L MCV 94.1 MCH 31.6 MCHC 33.6 RDW 17.0 H Plt Count 277 MPV 7.6 Sodium 138 Potassium 3.5 Chloride 100 Carbon Dioxide 31 Anion Gap 7 L BUN 18.0 Creatinine 4.7 H Est GFR (CKD-EPI)AfAm 11.00 Est GFR (CKD-EPI)NonAf 9.49 POC Glucometer 143 Random Glucose 119 H Calcium 8.2 L Urine Color Urine Appearance Urine pH Ur Specific [place] Urine Protein Urine Glucose (UA) Urine Ketones Urine Blood Urine Nitrite Urine Bilirubin Urine Urobilinogen Ur Leukocyte Esterase Active Medications Generic Name Dose Route Start Last Admin Trade Name Freq PRN Reason Stop Dose Admin Acetaminophen 650 mg 06/30/19 21:06 07/02/19 11:47 Tylenol - PO 650 mg Q6H PRN Administration MILD PAIN Atorvastatin Calcium 80 mg 06/30/19 22:00 07/01/19 22:41 Lipitor - PO Not Given HS [facility] Carvedilol 3.125 mg 06/30/19 22:00 07/02/19 11:47 Coreg - PO Not Given BID [facility] Collagenase 1 applic 07/01/19 17:20 07/02/19 11:48 Santyl - TP 1 applic DAILY [facility] Administration Protocol Fluticasone Propionate 1 spray 07/01/19 10:00 07/02/19 11:47 Flonase - NS 1 spray DAILY [facility] Administration Heparin Sodium (Porcine) 5,000 unit 06/30/19 22:00 07/02/19 15:46 Heparin - SQ Not Given TID [facility] Insulin Aspart 1 vial 06/30/19 22:00 07/02/19 15:46 Novolog Vial Sliding Scale - SQ Not Given ACHS [facility] Protocol Melatonin 5 mg 06/30/19 22:00 07/01/19 22:40 Melatonin PO 5 mg HS [facility] Administration Pantoprazole Sodium 40 mg 07/01/19 10:00 07/02/19 11:47 Protonix - PO 40 mg DAILY [facility] Administration Ropinirole HCl 0.5 mg 06/30/19 22:00 07/01/19 22:42 Requip - PO 0.5 mg HS [facility] Administration ASSESSMENT/PLAN: This is a 59 year old woman with a history of CAD, CABG, chronic systolic heart failure, AICD, COPD, type 2 DM, ESRD, RLS who presented to the ED with bilateral foot ulcers. 1. PAD with necrotic ulcers of both feet, gangrene of left 2nd toe - Continue wound care - CTA of aorta with lower extremity runoff shows moderate stenosis distal right SFA, proximal right popliteal artery, left popliteal artery; occluded distal right peroneal artery - Vascular surgery follow-up 2. CAD, history of CABG - Continue Coreg, Lipitor 3. Chronic systolic heart failure - Stable - Continue Coreg 4. COPD - Stable 5. Type 2 DM - Continue Novolog sliding scale 6. ESRD - Continue HD as per nephrology 7. Restless leg syndrome - Continue Requip 8. Anemia secondary to CKD Visit type - Emergency Visit Emergency Visit: Yes ED Registration Date: 02/13/20 Care time: The patient presented to the Emergency Department on the above date and was hospitalized for further evaluation of their emergent condition. - New Patient This patient is new to me today: Yes Date on this admission: 07/02/19 - Critical Care Critical Care patient: No - Discharge Referral Referred to [facility] Med [facility].C.: No
[2019-07-02] MEDS: rOPINIRole HCL 0.5 MG TABLET PO SCH (22:20)
[2019-07-02] MEDS: MELATONIN 5 MG TABLETS PO SCH (22:20)
[2019-07-02] MEDS: ATORVASTATIN CA 80 MG TABLET (FP) PO SCH (22:21)
[2019-07-03] MEDS: INSULIN SLIDING SCALE (NOVOLOG) 1 VIAL SQ SCH ×4 (06:56→21:57)
[2019-07-03] MEDS: HEPARIN NA (PORCINE) 5,000 UNITS/ML 1ML VIAL SQ SCH ×3 (06:56→21:52)
[2019-07-03 07:31] LABS: HEMATOCRIT 24.9 % (32.4-45.2); HEMOGLOBIN 8.3 GM/dL (10.7-15.3); MCH 31.3 pg (25.7-33.7); MCHC 33.3 g/dl (32.0-36.0); MEAN CELL VOLUME 94.1 fl (80-96); MEAN PLT VOLUME 7.6 fl (7.5-11.1); PLATELET COUNT 276 K/MM3 (134-434); RBC 2.64 M/mm3 (3.60-5.2); RDW 17.3 % (11.6-15.6)
[2019-07-03 08:08] LABS: BLOOD UREA NITROGEN 21.1 mg/dL (7-18); CALCIUM 8.3 mg/dL (8.5-10.1); CREATININE 4.1 mg/dL (0.55-1.3); POTASSIUM 3.4 mmol/L (3.5-5.1)
[2019-07-03] MEDS ORDERED: POTASSIUM CHLORIDE TABS 20 MEQ TABLET.ER (FP) PO ONE (08:27)
--- NOTE | 2019-07-03 08:30 | PN ---
Progress Note, Physician Chief Complaint: Examined in bed. States the LE persists Awaiting vascular plan. HD tomorrow History of Present Illness: 59 year-old female with a PMH significant for CAD, diastolic heart faillure s/p AICD, COPD, Type II IDDM, ESRD on HD (M,W,F), RLS, and bilateral foot ulcers. Several weeks ago patient had a vascular study and was told she had decreased circulation in her lower extremities. Today she had a scheduled CTA with runoff. After the test she was told to come to the ED to be admitted. Denies fever, sweats, chills. No significant change in foot wounds from chronic baseline. - Current Medication List Current Medications: Active Medications Acetaminophen (Tylenol -) 650 mg PO Q6H PRN PRN Reason: MILD PAIN Last Admin: 07/02/19 11:47 Dose: 650 mg Atorvastatin Calcium (Lipitor -) 80 mg PO HS DEANNA Last Admin: 07/02/19 22:21 Dose: Not Given Carvedilol (Coreg -) 3.125 mg PO BID DEANNA Last Admin: 07/02/19 22:20 Dose: 3.125 mg Collagenase (Santyl -) 1 applic TP DAILY [facility]; Protocol Last Admin: 07/02/19 11:48 Dose: 1 applic Fluticasone Propionate (Flonase -) 1 spray NS DAILY [facility] Last Admin: 07/02/19 11:47 Dose: 1 spray Heparin Sodium (Porcine) (Heparin -) 5,000 unit SQ TID DEANNA Last Admin: 07/03/19 06:56 Dose: Not Given Insulin Aspart (Novolog Vial Sliding Scale -) 1 vial SQ ACHS [facility]; Protocol Last Admin: 07/03/19 06:56 Dose: Not Given Melatonin (Melatonin) 5 mg PO HS DEANNA Last Admin: 07/02/19 22:20 Dose: 5 mg Pantoprazole Sodium (Protonix -) 40 mg PO DAILY [facility]ANNA Last Admin: 07/02/19 11:47 Dose: 40 mg Ropinirole HCl (Requip -) 0.5 mg PO HS DEANNA Last Admin: 07/02/19 22:20 Dose: 0.5 mg - Objective Vital Signs: Vital Signs Temperature 98.2 F 07/03/19 06:00 Pulse Rate 75 07/03/19 06:00 Respiratory Rate 20 07/03/19 06:00 Blood Pressure 136/48 L 07/03/19 06:00 O2 Sat by Pulse Oximetry (%) 98 07/02/19 21:00 Additional Findings/Remarks: Constitutional: Yes: Well Nourished, No Distress, Calm Eyes: Yes: WNL, Conjunctiva Clear HENT: Yes: WNL, Atraumatic, Normocephalic Neck: Yes: WNL, Supple, Trachea Midline Cardiovascular: Yes: WNL, Regular Rate and Rhythm, Murmur (systolic) Respiratory: Yes: WNL, Regular, CTA Bilaterally, Other (right chest wall permacath. No erythema/tenderness) Gastrointestinal: Yes: WNL, Normal Bowel Sounds ...Rectal Exam: Yes: Deferred Genitourinary: Yes: Other (On HD. Make some urine still) Breast(s): Yes: WNL Musculoskeletal: Yes: WNL Extremities: Yes: Other (LEFT FOOT: necrotic wounds first, second, third, fourth toes and area proximal to second and third toes; large necrotic heel wound; no erythema, warmth, swelling RIGHT FOOT: necrotic wounds second and fourth toes; large necrotic heel wound; no erythema, warmth, swelling) Edema: No Peripheral Pulses WNL: No Peripheral Pulses: Left Radial: 2+, Right Radial: 2+, Left Doralis Pedis: 1+, Right Dorsalis Pedis: 1+, Left Femoral: 2+, Right Femoral: 2+ Integumentary: Yes: Other (see above) Wound/Incision: Yes: Dressing Dry and Intact Neurological: Yes: WNL, Alert, Oriented ...Motor Strength: WNL Psychiatric: Yes: WNL Labs: CBC, BMP 07/03/19 06:48 07/03/19 06:48 INR, PTT INR 1.18 (0.83-1.09) H 06/30/19 15:15 - ....Imaging Cat Scan: Report Reviewed (IMPRESSION: CTA of aorta with lower extremity runoff shows moderate stenosis distal right SFA, proximal right popliteal artery , left popliteal artery; occluded distal right peroneal artery) Problem List - Problems (1) Diabetes Assessment/Plan: BGM AC/HS with novolog sliding scale diabetic diet Code(s): E11.9 - TYPE 2 DIABETES MELLITUS WITHOUT COMPLICATIONS (2) Ischemic ulcer of both feet Assessment/Plan: chronic ulcer of heels following in wound clinic pending intervention based on CTA results Code(s): L97.519 - NON-PRS CHRONIC ULCER OTH PRT RIGHT FOOT W UNSP SEVERITY; L97.529 - NON-PRESSURE CHRONIC ULCER OTH PRT LEFT FOOT W UNSP SEVERITY (3) Acute kidney injury superimposed on CKD Assessment/Plan: on HD Followed by Dr Pond HD planned for tomorrow then will resume MWF schedule Code(s): N17.9 - ACUTE KIDNEY FAILURE, UNSPECIFIED; N18.9 - CHRONIC KIDNEY DISEASE, UNSPECIFIED (4) COPD (chronic obstructive pulmonary disease) Assessment/Plan: stable Code(s): J44.9 - CHRONIC OBSTRUCTIVE PULMONARY DISEASE, UNSPECIFIED (5) ESRD (end stage renal disease) on dialysis Assessment/Plan: on HD Code(s): N18.6 - END STAGE RENAL DISEASE; Z99.2 - DEPENDENCE ON RENAL DIALYSIS (6) Prophylactic measure Assessment/Plan: FEN Fluids: adequate PO intake Electrolytes: monitor & replete as needed Nutrition: diabetic/renal diet DVT moderate risk sq heparin Dispo Maintain as inpatient full code discharge planning Code(s): Z29.9 - ENCOUNTER FOR PROPHYLACTIC MEASURES, UNSPECIFIED (7) CHF (congestive heart failure) Assessment/Plan: --continue carvedilol, statin Code(s): I50.9 - HEART FAILURE, UNSPECIFIED (8) Coronary artery disease Assessment/Plan: AD s/p CABG (4 vessel, 2014) Code(s): I25.10 - ATHSCL HEART DISEASE OF [place] CORONARY ARTERY W/O ANG PCTRS Qualifiers: Coronary Disease-Associated Artery/Lesion type: [place] artery [place] vs. transplanted heart: [place] heart Associated angina: without angina Qualified Code(s): I25.10 - Atherosclerotic heart disease of [place] coronary artery without angina pectoris (9) Restless leg syndrome Assessment/Plan: c/w ropinerole Code(s): G25.81 - RESTLESS LEGS SYNDROME (10) Anemia in chronic kidney disease Assessment/Plan: c/w epopgen Code(s): N18.9 - CHRONIC KIDNEY DISEASE, UNSPECIFIED; D63.1 - ANEMIA IN CHRONIC KIDNEY DISEASE (11) Hypokalemia Assessment/Plan: K 3.4 20 mEq KCl Code(s): E87.6 - HYPOKALEMIA Visit type - Emergency Visit Emergency Visit: Yes ED Registration Date: 06/30/19 Care time: The patient presented to the Emergency Department on the above date and was hospitalized for further evaluation of their emergent condition. - New Patient This patient is new to me today: No - Critical Care Critical Care patient: No - Discharge Referral Referred to [facility] No
[2019-07-03] MEDS: CARVEDILOL 3.125 MG TABLET (FP) PO SCH ×2 (10:26→21:52)
[2019-07-03] MEDS: PANTOPRAZOLE 40 MG TABLET PO SCH (10:26)
[2019-07-03] MEDS: FLUTICASONE PROP 0.05% 16 GM NASAL SPRAY NS SCH (10:27)
[2019-07-03] MEDS: COLLAGENASE CLOSTRIDIUM HIST. 30 GRAMS TUBE TP SCH (10:27)
--- NOTE | 2019-07-03 11:22 | PN ---
Progress Note (short form) - Note Progress Note: RENAL no complaints Last Vital Signs Temp Pulse Resp BP Pulse Ox 98.2 F 75 20 136/48 L 98 07/03/19 06:00 07/03/19 06:00 07/03/19 06:00 07/03/19 06:00 07/02/19 21:00 lungs clear cvs s1s2 rr abd soft ext no edema poor pulses neuro a+ox3 CBC, BMP 07/03/19 06:48 07/03/19 06:48 Current Medications Generic Name Dose Route Start Last Admin Trade Name Freq PRN Reason Stop Dose Admin Acetaminophen 650 mg 06/30/19 21:06 07/02/19 11:47 Tylenol - PO 650 mg Q6H PRN Administration MILD PAIN Atorvastatin Calcium 80 mg 06/30/19 22:00 07/02/19 22:21 Lipitor - PO Not Given HS DEANNA Carvedilol 3.125 mg 06/30/19 22:00 07/03/19 10:26 Coreg - PO 3.125 mg BID DEANNA Administration Collagenase 1 applic 07/01/19 17:20 07/03/19 10:27 Santyl - TP 1 applic DAILY DEANNA Administration Protocol Fluticasone Propionate 1 spray 07/01/19 10:00 07/03/19 10:27 Flonase - NS 1 spray DAILY DEANNA Administration Heparin Sodium (Porcine) 5,000 unit 06/30/19 22:00 07/03/19 06:56 Heparin - SQ Not Given TID DEANNA Insulin Aspart 1 vial 06/30/19 22:00 07/03/19 06:56 Novolog Vial Sliding Scale - SQ Not Given ACHS DEANNA Protocol Melatonin 5 mg 06/30/19 22:00 07/02/19 22:20 Melatonin PO 5 mg HS DEANNA Administration Pantoprazole Sodium 40 mg 07/01/19 10:00 07/03/19 10:26 Protonix - PO 40 mg DAILY DEANNA Administration Ropinirole HCl 0.5 mg 06/30/19 22:00 07/02/19 22:20 Requip - PO 0.5 mg HS DEANNA Administration Impression 1. ESRD 2. CHF 3. DM 4. HTN 5. hyperlipidemia 6. nephrotic range proteinuria 7. CAD 8. s/p ct angio 9. lower ext wounds/gangrene Plan will dialyze tomorrow vascular surgery follow up MV
[2019-07-03] MEDS: ACETAMINOPHEN 325 MG TABLET (FP) PO PRN ×2 (13:20→19:01)
--- NOTE | 2019-07-03 17:22 | PN ---
Progress Note, Physician Chief Complaint: fuv b/l feet - Current Medication List Current Medications: Active Medications Acetaminophen (Tylenol -) 650 mg PO Q6H PRN PRN Reason: MILD PAIN Last Admin: 07/03/19 13:20 Dose: 650 mg Atorvastatin Calcium (Lipitor -) 80 mg PO HS [facility] Last Admin: 07/02/19 22:21 Dose: Not Given Carvedilol (Coreg -) 3.125 mg PO BID [facility] Last Admin: 07/03/19 10:26 Dose: 3.125 mg Collagenase (Santyl -) 1 applic TP DAILY [facility]; Protocol Last Admin: 07/03/19 10:27 Dose: 1 applic Fluticasone Propionate (Flonase -) 1 spray NS DAILY [facility] Last Admin: 07/03/19 10:27 Dose: 1 spray Heparin Sodium (Porcine) (Heparin -) 5,000 unit SQ TID [facility] Last Admin: 07/03/19 14:37 Dose: 5,000 unit Heparin Sodium (Porcine) (Heparin -) 1,000 unit IVPUSH ONCE ONE Stop: 07/03/19 11:23 Sodium Chloride (Normal Saline -) 250 mls @ 3,000 mls/hr IV PRN PRN PRN Reason: Hypotension during Dialysis Stop: 07/04/19 11:23 Insulin Aspart (Novolog Vial Sliding Scale -) 1 vial SQ ACHS [facility]; Protocol Last Admin: 07/03/19 12:02 Dose: Not Given Melatonin (Melatonin) 5 mg PO HS [facility] Last Admin: 07/02/19 22:20 Dose: 5 mg Pantoprazole Sodium (Protonix -) 40 mg PO DAILY [facility] Last Admin: 07/03/19 10:26 Dose: 40 mg Ropinirole HCl (Requip -) 0.5 mg PO HS [facility] Last Admin: 07/02/19 22:20 Dose: 0.5 mg - Objective Vital Signs: Vital Signs Temperature 98.0 F 07/03/19 14:48 Pulse Rate 77 07/03/19 14:48 Respiratory Rate 20 07/03/19 14:48 Blood Pressure 113/44 L 07/03/19 14:48 O2 Sat by Pulse Oximetry (%) 98 07/02/19 21:00 Extremities: Yes: Other (+unchanged wounds b/l feet including heels,) Labs: CBC, BMP 07/03/19 06:48 07/03/19 06:48 INR, PTT INR 1.18 (0.83-1.09) H 06/30/19 15:15 Assessment/Plan pvd ischemic wounds Santyl to wounds b/l feet. Awaiting vascular intervention. Will follow. Continue offloading heels b/l with pillow under calf.
[2019-07-03] MEDS ORDERED: PT OWN MED DRAWER 7, Y5N ONE (21:13)
[2019-07-03] MEDS: rOPINIRole HCL 0.5 MG TABLET PO SCH (21:52)
[2019-07-03] MEDS: MELATONIN 5 MG TABLETS PO SCH (21:52)
[2019-07-03] MEDS: ATORVASTATIN CA 80 MG TABLET (FP) PO SCH (21:57)
[2019-07-04] MEDS: HEPARIN NA (PORCINE) 5,000 UNITS/ML 1ML VIAL SQ SCH ×3 (06:11→21:11)
[2019-07-04] MEDS: INSULIN SLIDING SCALE (NOVOLOG) 1 VIAL SQ SCH ×3 (06:24→21:13)
[2019-07-04] MEDS ORDERED: SODIUM CHLORIDE 250 ML IV PRN (07:02)
[2019-07-04] MEDS ORDERED: HEPARIN NA (PORCINE) 5,000 UNITS/ML 1ML VIAL IVPUSH ONE (07:15)
--- NOTE | 2019-07-04 08:23 | PN ---
Progress Note, Physician Chief Complaint: Examined at HD. States the LE continues. Awaiting [employer] vascular plan. History of Present Illness: 59 year-old female with a PMH significant for CAD, diastolic heart faillure s/p AICD, COPD, Type II IDDM, ESRD on HD (M,W,F), RLS, and bilateral foot ulcers. Several weeks ago patient had a vascular study and was told she had decreased circulation in her lower extremities. Today she had a scheduled CTA with runoff. After the test she was told to come to the ED to be admitted. Denies fever, sweats, chills. No significant change in foot wounds from chronic baseline. - Current Medication List Current Medications: Active Medications Acetaminophen (Tylenol -) 650 mg PO Q6H PRN PRN Reason: MILD PAIN Last Admin: 07/03/19 19:01 Dose: 650 mg Atorvastatin Calcium (Lipitor -) 80 mg PO HS [facility] Last Admin: 07/03/19 21:57 Dose: Not Given Carvedilol (Coreg -) 3.125 mg PO BID [facility] Last Admin: 07/03/19 21:52 Dose: 3.125 mg Collagenase (Santyl -) 1 applic TP DAILY [facility]; Protocol Last Admin: 07/03/19 10:27 Dose: 1 applic Fluticasone Propionate (Flonase -) 1 spray NS DAILY [facility] Last Admin: 07/03/19 10:27 Dose: 1 spray Heparin Sodium (Porcine) (Heparin -) 5,000 unit SQ TID [facility] Last Admin: 07/04/19 06:11 Dose: 5,000 unit Insulin Aspart (Novolog Vial Sliding Scale -) 1 vial SQ ACHS [facility]; Protocol Last Admin: 07/04/19 06:24 Dose: Not Given Melatonin (Melatonin) 5 mg PO HS [facility] Last Admin: 07/03/19 21:52 Dose: 5 mg Pantoprazole Sodium (Protonix -) 40 mg PO DAILY [facility] Last Admin: 07/03/19 10:26 Dose: 40 mg Ropinirole HCl (Requip -) 0.5 mg PO HS [facility] Last Admin: 07/03/19 21:52 Dose: 0.5 mg - Objective Vital Signs: Vital Signs Temperature 97.9 F 07/04/19 05:47 Pulse Rate 73 07/04/19 05:47 Respiratory Rate 18 07/04/19 05:47 Blood Pressure 139/53 L 07/04/19 05:47 O2 Sat by Pulse Oximetry (%) 98 07/03/19 21:00 Additional Findings/Remarks: Constitutional: Yes: Well Nourished, No Distress, Calm Eyes: Yes: WNL, Conjunctiva Clear HENT: Yes: WNL, Atraumatic, Normocephalic Neck: Yes: WNL, Supple, Trachea Midline Cardiovascular: Yes: WNL, Regular Rate and Rhythm, Murmur (systolic) Respiratory: Yes: WNL, Regular, CTA Bilaterally, Other (right chest wall permacath. No erythema/tenderness) Gastrointestinal: Yes: WNL, Normal Bowel Sounds ...Rectal Exam: Yes: Deferred Genitourinary: Yes: Other (On HD. Make some urine still) Breast(s): Yes: WNL Musculoskeletal: Yes: WNL Extremities: Yes: Other (LEFT FOOT: necrotic wounds first, second, third, fourth toes and area proximal to second and third toes; large necrotic heel wound; no erythema, warmth, swelling RIGHT FOOT: necrotic wounds second and fourth toes; large necrotic heel wound; no erythema, warmth, swelling) Edema: No Peripheral Pulses WNL: No Peripheral Pulses: Left Radial: 2+, Right Radial: 2+, Left Doralis Pedis: 1+, Right Dorsalis Pedis: 1+, Left Femoral: 2+, Right Femoral: 2+ Integumentary: Yes: Other (see above) Wound/Incision: Yes: Dressing Dry and Intact Neurological: Yes: WNL, Alert, Oriented ...Motor Strength: WNL Psychiatric: Yes: WNL Labs: CBC, BMP 07/03/19 06:48 07/03/19 06:48 INR, PTT INR 1.18 (0.83-1.09) H 06/30/19 15:15 Problem List - Problems (1) Diabetes Assessment/Plan: BGM AC/HS with novolog sliding scale diabetic diet Code(s): E11.9 - TYPE 2 DIABETES MELLITUS WITHOUT COMPLICATIONS (2) Ischemic ulcer of both feet Assessment/Plan: chronic ulcer of heels following in wound clinic pending intervention based on CTA results Code(s): L97.519 - NON-PRS CHRONIC ULCER OTH PRT RIGHT FOOT W UNSP SEVERITY; L97.529 - NON-PRESSURE CHRONIC ULCER OTH PRT LEFT FOOT W UNSP SEVERITY (3) Acute kidney injury superimposed on CKD Assessment/Plan: on HD Followed by Dr Pond HD planned for today c/w MWF schedule Code(s): N17.9 - ACUTE KIDNEY FAILURE, UNSPECIFIED; N18.9 - CHRONIC KIDNEY DISEASE, UNSPECIFIED (4) COPD (chronic obstructive pulmonary disease) Assessment/Plan: stable Code(s): J44.9 - CHRONIC OBSTRUCTIVE PULMONARY DISEASE, UNSPECIFIED (5) ESRD (end stage renal disease) on dialysis Assessment/Plan: on HD Code(s): N18.6 - END STAGE RENAL DISEASE; Z99.2 - DEPENDENCE ON RENAL DIALYSIS (6) Prophylactic measure Assessment/Plan: FEN Fluids: adequate PO intake Electrolytes: monitor & replete as needed Nutrition: diabetic/renal diet DVT moderate risk sq heparin Dispo Maintain as inpatient full code discharge planning Code(s): Z29.9 - ENCOUNTER FOR PROPHYLACTIC MEASURES, UNSPECIFIED (7) CHF (congestive heart failure) Assessment/Plan: c/w carvedilol, statin Code(s): I50.9 - HEART FAILURE, UNSPECIFIED (8) Coronary artery disease Assessment/Plan: s/p CABG (4 vessel, 2014) Code(s): I25.10 - ATHSCL HEART DISEASE OF [place] CORONARY ARTERY W/O ANG PCTRS Qualifiers: Coronary Disease-Associated Artery/Lesion type: [place] artery [place] vs. transplanted heart: [place] heart Associated angina: without angina Qualified Code(s): I25.10 - Atherosclerotic heart disease of [place] coronary artery without angina pectoris (9) Restless leg syndrome Assessment/Plan: c/w ropinerole Code(s): G25.81 - RESTLESS LEGS SYNDROME (10) Anemia in chronic kidney disease Assessment/Plan: c/w epopgen Code(s): N18.9 - CHRONIC KIDNEY DISEASE, UNSPECIFIED; D63.1 - ANEMIA IN CHRONIC KIDNEY DISEASE (11) Hypokalemia Assessment/Plan: K 3.4 20 mEq KCl Code(s): E87.6 - HYPOKALEMIA Visit type - Emergency Visit Emergency Visit: Yes ED Registration Date: 06/30/19 Care time: The patient presented to the Emergency Department on the above date and was hospitalized for further evaluation of their emergent condition. - New Patient This patient is new to me today: No - Critical Care Critical Care patient: No - Discharge Referral Referred to [facility] No
[2019-07-04] MEDS: ACETAMINOPHEN 325 MG TABLET (FP) PO PRN ×2 (09:00→21:09)
--- NOTE | 2019-07-04 12:12 | PN ---
Progress Note (short form) - Note Progress Note: VASCULAR SURGERY CTA aortogram w/ consuelo LE runoff completed 06/30/19. Radiologist reviewed results w/ Dr. Giraldo. Patient CKD on HD via permacatheter right chest wall. Will need UE vein mapping to plan for future AVF.
--- NOTE | 2019-07-04 12:46 | PN ---
Progress Note (short form) - Note Progress Note: Pt seen in bed. vss +multiple wounds b/l feet, +necrotic heels b/l, +multiple forefoot wound left worse than right gangarene necrosis Awaiting vascular intervention tomorrow. Will discuss with Dr. Giraldo. Will follow. Continue Santyl.
[2019-07-04] MEDS: CARVEDILOL 3.125 MG TABLET (FP) PO SCH ×2 (15:24→22:52)
[2019-07-04] MEDS: PANTOPRAZOLE 40 MG TABLET PO SCH (15:25)
[2019-07-04] MEDS: COLLAGENASE CLOSTRIDIUM HIST. 30 GRAMS TUBE TP SCH (15:25)
[2019-07-04] MEDS: FLUTICASONE PROP 0.05% 16 GM NASAL SPRAY NS SCH (15:25)
--- NOTE | 2019-07-04 15:59 | PN ---
Progress Note, Physician History of Present Illness: Pt seen and examined at bedside. She is awake and alert. She denies shortness of breath. - Current Medication List Current Medications: Active Medications Acetaminophen (Tylenol -) 650 mg PO Q6H PRN PRN Reason: MILD PAIN Last Admin: 07/04/19 09:00 Dose: 650 mg Atorvastatin Calcium (Lipitor -) 80 mg PO HS [facility] Last Admin: 07/03/19 21:57 Dose: Not Given Carvedilol (Coreg -) 3.125 mg PO BID [facility] Last Admin: 07/04/19 15:24 Dose: Not Given Collagenase (Santyl -) 1 applic TP DAILY [facility]; Protocol Last Admin: 07/04/19 15:25 Dose: 1 applic Fluticasone Propionate (Flonase -) 1 spray NS DAILY [facility] Last Admin: 07/04/19 15:25 Dose: 1 spray Heparin Sodium (Porcine) (Heparin -) 5,000 unit SQ TID [facility] Last Admin: 07/04/19 15:25 Dose: 5,000 unit Insulin Aspart (Novolog Vial Sliding Scale -) 1 vial SQ ACHS [facility]; Protocol Last Admin: 07/04/19 15:29 Dose: Not Given Melatonin (Melatonin) 5 mg PO HS [facility] Last Admin: 07/03/19 21:52 Dose: 5 mg Pantoprazole Sodium (Protonix -) 40 mg PO DAILY [facility] Last Admin: 07/04/19 15:25 Dose: 40 mg Ropinirole HCl (Requip -) 0.5 mg PO HS [facility] Last Admin: 07/03/19 21:52 Dose: 0.5 mg - Objective Vital Signs: Vital Signs Temperature 97.6 F 07/04/19 09:15 Pulse Rate 70 07/04/19 12:40 Respiratory Rate 18 07/04/19 12:40 Blood Pressure 144/61 07/04/19 12:40 O2 Sat by Pulse Oximetry (%) 98 07/03/19 21:00 Constitutional: Yes: Calm Eyes: Yes: Conjunctiva Clear HENT: Yes: Atraumatic Neck: Yes: Supple Cardiovascular: Yes: S1, S2 Respiratory: Yes: CTA Bilaterally Gastrointestinal: Yes: Normal Bowel Sounds, Soft Genitourinary: Yes: WNL Musculoskeletal: Yes: WNL Edema: No Neurological: Yes: Oriented Psychiatric: Yes: Oriented Labs: CBC, BMP 07/03/19 06:48 07/03/19 06:48 INR, PTT INR 1.18 (0.83-1.09) H 06/30/19 15:15 Assessment/Plan Current Medications Generic Name Dose Route Start Last Admin Trade Name [place] PRN Reason Stop Dose Admin Acetaminophen 650 mg 06/30/19 21:06 07/04/19 09:00 Tylenol - PO 650 mg Q6H PRN Administration MILD PAIN Atorvastatin Calcium 80 mg 06/30/19 22:00 07/03/19 21:57 Lipitor - PO Not Given HS DEANNA Carvedilol 3.125 mg 06/30/19 22:00 07/04/19 15:24 Coreg - PO Not Given BID DEANNA Collagenase 1 applic 07/01/19 17:20 07/04/19 15:25 Santyl - TP 1 applic DAILY DEANNA Administration Protocol Fluticasone Propionate 1 spray 07/01/19 10:00 07/04/19 15:25 Flonase - NS 1 spray DAILY DEANNA Administration Heparin Sodium (Porcine) 5,000 unit 06/30/19 22:00 07/04/19 15:25 Heparin - SQ 5,000 unit TID DEANNA Administration Insulin Aspart 1 vial 06/30/19 22:00 07/04/19 15:29 Novolog Vial Sliding Scale - SQ Not Given ACHS DEANNA Protocol Melatonin 5 mg 06/30/19 22:00 07/03/19 21:52 Melatonin PO 5 mg HS DEANNA Administration Pantoprazole Sodium 40 mg 07/01/19 10:00 07/04/19 15:25 Protonix - PO 40 mg DAILY DEANNA Administration Ropinirole HCl 0.5 mg 06/30/19 22:00 07/03/19 21:52 Requip - PO 0.5 mg HS DEANNA Administration Impression 1. ESRD 2. CHF 3. DM 4. HTN 5. hyperlipidemia 6. nephrotic range proteinuria 7. CAD 8. s/p ct angio 9. lower ext wounds/gangrene Plan - HD today - pt back on schedule - check cmp tomorrow - check phos level - wound care
--- NOTE | 2019-07-04 16:46 | PN ---
Progress Note (short form) - Note Progress Note: Vascular Surgery Pt seen and examined in HD today. Pt needs Left lower extremity angiogram lupe for gangrene of left foot. Pt understands all risks and benefits. Will do lupe afternoon. Carlos Enrique oliveira DO
[2019-07-04] MEDS ORDERED: PT OWN MED DRAWER 7, Y5N ONE (20:43)
[2019-07-04] MEDS: MELATONIN 5 MG TABLETS PO SCH (21:10)
[2019-07-04] MEDS: ATORVASTATIN CA 80 MG TABLET (FP) PO SCH (21:12)
[2019-07-04] MEDS: rOPINIRole HCL 0.5 MG TABLET PO SCH (21:12)
[2019-07-05] MEDS: HEPARIN NA (PORCINE) 5,000 UNITS/ML 1ML VIAL SQ SCH ×3 (05:57→20:59)
[2019-07-05] MEDS: INSULIN SLIDING SCALE (NOVOLOG) 1 VIAL SQ SCH ×5 (06:16→20:59)
[2019-07-05 07:37] LABS: BASO % 0.9 % (0-2.0); EOS % 5.6 % (0-4.5); HEMATOCRIT 26.2 % (32.4-45.2); HEMOGLOBIN 8.5 GM/dL (10.7-15.3); LYMPH % 14.8 % (8-40); MCH 31.4 pg (25.7-33.7); MCHC 32.6 g/dl (32.0-36.0); MEAN CELL VOLUME 96.3 fl (80-96); MEAN PLT VOLUME 7.8 fl (7.5-11.1); MONO % 5.5 % (3.8-10.2); NEUT % 73.2 % (42.8-82.8); PLATELET COUNT 276 K/MM3 (134-434); RBC 2.72 M/mm3 (3.60-5.2); RDW 18.2 % (11.6-15.6); WHITE BLOOD COUNT 9.8 K/mm3 (4.0-10.0)
[2019-07-05 07:59] LABS: ALBUMIN 2.5 g/dl (3.4-5.0); BILIRUBIN,TOTAL 0.6 mg/dL (0.2-1); BLOOD UREA NITROGEN 23.1 mg/dL (7-18); CALCIUM 8.1 mg/dL (8.5-10.1); CREATININE 4.1 mg/dL (0.55-1.3); PHOSPHOROUS 3.6 mg/dL (2.5-4.9); POTASSIUM 4.1 mmol/L (3.5-5.1); TOT PROT 6.1 g/dl (6.4-8.2)
[2019-07-05] MEDS ORDERED: PT OWN MED DRAWER 7, Y5N ONE (09:30)
[2019-07-05] MEDS: FLUTICASONE PROP 0.05% 16 GM NASAL SPRAY NS SCH (09:57)
[2019-07-05] MEDS: CARVEDILOL 3.125 MG TABLET (FP) PO SCH ×2 (09:58→20:59)
[2019-07-05] MEDS: PANTOPRAZOLE 40 MG TABLET PO SCH (09:58)
--- NOTE | 2019-07-05 10:01 | PN ---
Physical Exam: SUBJECTIVE: Patient seen and examined at the bedside. awake, alert and denies pain. OBJECTIVE: for angioplasty today, planned by vascular Patient is a 59 year-old female with a past medical history of CAD, diastolic heart faillure s/p AICD, COPD, Type II IDDM, ESRD on HD (M,W,F), RLS, and bilateral foot ulcers. Several weeks ago patient had a vascular study and was told she had decreased circulation in her lower extremities. Today she had a scheduled CTA with runoff. After the test she was told to come to the ED to be admitted. Denies fever, sweats, chills. No significant change in foot wounds from chronic baseline. Period Temp Pulse Resp BP Sys/Horowitz Pulse Ox Last 24 Hr 97.5 F-98.7 F 70-82 17-20 112-167/50-74 GENERAL: The patient is awake, alert, and fully oriented, in no acute distress. HEAD: Normal with no signs of trauma. EYES: PERRL, extraocular movements intact, sclera anicteric, conjunctiva clear. No ptosis. ENT: Ears normal, nares patent, oropharynx clear without exudates, moist mucous membranes. NECK: Trachea midline, full range of motion, supple. LUNGS: Breath sounds equal, clear to auscultation bilaterally HEART: Regular rate and rhythm ABDOMEN: Soft, nontender, nondistended, normoactive bowel sounds EXTREMITIES: left foot, necrotic wounds first, second, third, fourth toes and area proximal to second and third toes; large necrotic heel wound; no erythema, warmth, swelling. right foot: necrotic wounds second and fourth toes; large necrotic heel wound; no erythema, warmth, swelling Laboratory Results - last 24 hr 07/04/19 07/04/19 07/05/19 17:23 21:06 05:55 WBC RBC Hgb Hct MCV MCH MCHC RDW Plt Count MPV Absolute Neuts (auto) Neutrophils % Lymphocytes % Monocytes % Eosinophils % Basophils % Nucleated RBC % Sodium Potassium Chloride Carbon Dioxide Anion Gap BUN Creatinine Est GFR (CKD-EPI)AfAm Est GFR (CKD-EPI)NonAf POC Glucometer 163 159 114 Random Glucose Calcium Phosphorus Magnesium Total Bilirubin AST ALT Alkaline Phosphatase Total Protein Albumin 07/05/19 07/05/19 06:35 06:35 WBC 9.8 RBC 2.72 L Hgb 8.5 L Hct 26.2 L MCV 96.3 H MCH 31.4 MCHC 32.6 RDW 18.2 H Plt Count 276 MPV 7.8 Absolute Neuts (auto) 7.2 Neutrophils % 73.2 Lymphocytes % 14.8 Monocytes % 5.5 Eosinophils % 5.6 H Basophils % 0.9 Nucleated RBC % 0 Sodium 137 Potassium 4.1 Chloride 99 Carbon Dioxide 29 Anion Gap 9 BUN 23.1 H Creatinine 4.1 H Est GFR (CKD-EPI)AfAm 12.97 Est GFR (CKD-EPI)NonAf 11.19 POC Glucometer Random Glucose 120 H Calcium 8.1 L Phosphorus 3.6 Magnesium 2.0 Total Bilirubin 0.6 AST 13 L ALT 12 L Alkaline Phosphatase 194 H Total Protein 6.1 L Albumin 2.5 L Active Medications Generic Name Dose Route Start Last Admin Trade Name Freq PRN Reason Stop Dose Admin Acetaminophen 650 mg 06/30/19 21:06 07/04/19 21:09 Tylenol - PO 650 mg Q6H PRN Administration MILD PAIN Atorvastatin Calcium 80 mg 06/30/19 22:00 07/04/19 21:12 Lipitor - PO Not Given HS DEANNA Carvedilol 3.125 mg 06/30/19 22:00 07/05/19 09:58 Coreg - PO 3.125 mg BID DEANNA Administration Collagenase 1 applic 07/01/19 17:20 07/04/19 15:25 Santyl - TP 1 applic DAILY DEANNA Administration Protocol Fluticasone Propionate 1 spray 07/01/19 10:00 07/05/19 09:57 Flonase - NS 1 spray DAILY DEANNA Administration Heparin Sodium (Porcine) 5,000 unit 06/30/19 22:00 07/05/19 05:57 Heparin - SQ Not Given TID DEANNA Insulin Aspart 1 vial 06/30/19 22:00 07/05/19 06:16 Novolog Vial Sliding Scale - SQ Not Given ACHS DEANNA Protocol Melatonin 5 mg 06/30/19 22:00 07/04/19 21:10 Melatonin PO 5 mg HS DEANNA Administration Pantoprazole Sodium 40 mg 07/01/19 10:00 07/05/19 09:58 Protonix - PO 40 mg DAILY DEANNA Administration Ropinirole HCl 0.5 mg 06/30/19 22:00 07/04/19 21:12 Requip - PO 0.5 mg HS DEANNA Administration ASSESSMENT/PLAN: Problem List - Problems (1) Anemia in chronic kidney disease Assessment/Plan: on epogen. monitor cbc daily. patient with extensive cardiac disease. transfuse if hmg <8. Code(s): N18.9 - CHRONIC KIDNEY DISEASE, UNSPECIFIED; D63.1 - ANEMIA IN CHRONIC KIDNEY DISEASE (2) Diabetes Assessment/Plan: diabetic diet novolog ss maintain fasting glucose <180 Code(s): E11.9 - TYPE 2 DIABETES MELLITUS WITHOUT COMPLICATIONS (3) Hypokalemia Assessment/Plan: monitor electrolytes daily Code(s): E87.6 - HYPOKALEMIA (4) Ischemic ulcer of both feet Assessment/Plan: chronic ulcer of heels following in wound clinic patient for a left lower extremity angiogram today for gangrene of left foot. Code(s): L97.519 - NON-PRS CHRONIC ULCER OTH PRT RIGHT FOOT W UNSP SEVERITY; L97.529 - NON-PRESSURE CHRONIC ULCER OTH PRT LEFT FOOT W UNSP SEVERITY (5) YVES (acute kidney injury) Code(s): N17.9 - ACUTE KIDNEY FAILURE, UNSPECIFIED (6) Acute kidney injury superimposed on CKD Code(s): N17.9 - ACUTE KIDNEY FAILURE, UNSPECIFIED; N18.9 - CHRONIC KIDNEY DISEASE, UNSPECIFIED (7) Acute renal failure Code(s): N17.9 - ACUTE KIDNEY FAILURE, UNSPECIFIED (8) CKD (chronic kidney disease) requiring chronic dialysis Assessment/Plan: received dialysis yesterday Code(s): N18.6 - END STAGE RENAL DISEASE; Z99.2 - DEPENDENCE ON RENAL DIALYSIS (9) Diabetes mellitus, insulin dependent (IDDM), uncontrolled Code(s): E10.65 - TYPE 1 DIABETES MELLITUS WITH HYPERGLYCEMIA (10) ESRD (end stage renal disease) on dialysis Assessment/Plan: dialysis per renal Code(s): N18.6 - END STAGE RENAL DISEASE; Z99.2 - DEPENDENCE ON RENAL DIALYSIS (11) DVT prophylaxis Assessment/Plan: heparin tid Code(s): Z29.9 - ENCOUNTER FOR PROPHYLACTIC MEASURES, UNSPECIFIED Visit type - Emergency Visit Emergency Visit: Yes ED Registration Date: 06/30/19 Care time: The patient presented to the Emergency Department on the above date and was hospitalized for further evaluation of their emergent condition. - New Patient This patient is new to me today: Yes Date on this admission: 07/05/19 - Critical Care Critical Care patient: No - Discharge Referral Referred to [facility] Med P.C.: No
[2019-07-05] MEDS ORDERED: LIDOCAINE HCL 1%, 10 MG/ML (20ML VIAL) ONE ×2 (13:50→14:34)
[2019-07-05] MEDS ORDERED: HEPARIN NA (PORCINE) 5,000 UNITS/ML 1ML VIAL ONE ×2 (13:50→14:34)
--- NOTE | 2019-07-05 14:16 | CON.ID ---
Consult Consult Specialty:: infectious diseases Referred by:: karlos Reason for Consultation:: b/l foot infections - History of Present Illness Chief Complaint: pain in the legs History of Present Illness: 59 year-old female with a PMH significant for CAD, diastolic heart faillure s/p AICD, COPD, Type II IDDM, ESRD on HD (M,W,F), RLS, and bilateral foot ulcers. Several weeks ago patient had a vascular study and was told she had decreased circulation in her lower extremities. Today she had a scheduled CTA with runoff. patient known to me from previous admission c/o of pain in the legs plan is to go for angio gram and see the vascular.also b/l leg ulcers present - History Source History Provided By: Patient Limitations to Obtaining History: No Limitations - Past Medical History [employer] EXECUTIVE: Yes: Vertigo Cardio/Vascular: Yes: CAD Pulmonary: Yes: COPD Renal/: Yes: Renal Failure, Hemodialysis Endocrine: Yes: Diabetes Mellitus - Past Surgical History Past Surgical History: Yes: Arthrosocopy (Rt knee surgery in her 20s secondary to chrondomalacia), CABG - Alcohol/Substance Use Hx Alcohol Use: No History of Substance Use: reports: None - Smoking History Smoking history: Former smoker Have you smoked in the past 12 months: No Aproximately how many cigarettes per day: 0 If you are a former smoker, when did you quit?: 20 yrs ago - Social History Usual Living Arrangement: Other (adult children) ADL: Independent 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 Home Medications - Allergies Allergies/Adverse Reactions: Allergies Allergy/AdvReac Type Severity Reaction Status Date / Time Penicillins Allergy Severe RESPIRATORY Verified 06/30/19 14:00 DISTRESS prednisone AdvReac Severe disorientat Verified 06/30/19 14:00 ion gluten AdvReac Verified 06/30/19 14:00 morphine AdvReac disorientat Verified 06/30/19 14:00 ion BETA BLOCKERS Allergy Severe SEVERE Uncoded 06/30/19 14:00 HYPOTENSION - Home Medications Home Medications: Ambulatory Orders Fluticasone Prop 0.05% Nasal [Flonase -] 1 - 2 spray NS DAILY 02/03/19 Carvedilol [Coreg -] 3.125 mg PO BID tablet 04/04/19 Glimepiride [Amaryl -] 2 mg PO DAILY@0700 04/28/19 Collagenase Clostridium Hist. [Santyl -] 1 appful TP DAILY 05/19/19 Atorvastatin Calcium 80 mg PO DAILY 06/09/19 Pantoprazole Sodium 40 mg PO DAILY 06/09/19 Spironolactone 12.5 mg PO DAILY 06/09/19 Melatonin 5 mg PO DAILY 06/15/19 Ropinirole HCl [Requip -] 0.5 mg PO HS 06/15/19 Review of Systems - Review of Systems Constitutional: reports: Weakness Eyes: reports: No Symptoms HENT: reports: No Symptoms Neck: reports: No Symptoms Cardiovascular: reports: No Symptoms Respiratory: reports: No Symptoms Gastrointestinal: reports: No Symptoms Genitourinary: reports: No Symptoms Musculoskeletal: reports: Other (leg pain) Integumentary: reports: Wound, Other Neurological: reports: No Symptoms Endocrine: reports: No Symptoms Hematology/Lymphatic: reports: No Symptoms Psychiatric: reports: No Symptoms Physical Exam Vital Signs: Vital Signs Temperature 97.6 F 07/05/19 08:41 Pulse Rate 81 07/05/19 08:41 Respiratory Rate 18 07/05/19 08:41 Blood Pressure 154/74 07/05/19 08:41 O2 Sat by Pulse Oximetry (%) 98 07/03/19 21:00 Constitutional: Yes: Well Nourished, Calm, Mild Distress Eyes: Yes: Conjunctiva Clear HENT: Yes: Atraumatic, Normocephalic Neck: Yes: Supple, Trachea Midline Cardiovascular: Yes: Pulse Irregular, S1, S2 Respiratory: Yes: Regular, CTA Bilaterally Gastrointestinal: Yes: Normal Bowel Sounds, Soft Musculoskeletal: Yes: WNL Extremities: Yes: Other Wound/Incision: Yes: Dressing Dry and Intact, Other (b/l leg wounds) Neurological: Yes: Alert, Oriented Psychiatric: Yes: Alert, Oriented Labs: CBC, BMP 07/05/19 06:35 07/05/19 06:35 Assessment/Plan Problem List - Problems (1) Anemia in chronic kidney disease Code(s): N18.9 - CHRONIC KIDNEY DISEASE, UNSPECIFIED; D63.1 - ANEMIA IN CHRONIC KIDNEY DISEASE (2) Diabetes Code(s): E11.9 - TYPE 2 DIABETES MELLITUS WITHOUT COMPLICATIONS (3) Hypokalemia Code(s): E87.6 - HYPOKALEMIA (4) Ischemic ulcer of both feet Code(s): L97.519 - NON-PRS CHRONIC ULCER OTH PRT RIGHT FOOT W UNSP SEVERITY; L97.529 - NON-PRESSURE CHRONIC ULCER OTH PRT LEFT FOOT W UNSP SEVERITY (5) YVES (acute kidney injury) Code(s): N17.9 - ACUTE KIDNEY FAILURE, UNSPECIFIED (6) Acute kidney injury superimposed on CKD Code(s): N17.9 - ACUTE KIDNEY FAILURE, UNSPECIFIED; N18.9 - CHRONIC KIDNEY DISEASE, UNSPECIFIED (7) Acute renal failure Code(s): N17.9 - ACUTE KIDNEY FAILURE, UNSPECIFIED (8) CKD (chronic kidney disease) requiring chronic dialysis Code(s): N18.6 - END STAGE RENAL DISEASE; Z99.2 - DEPENDENCE ON RENAL DIALYSIS (9) Diabetes mellitus, insulin dependent (IDDM), uncontrolled Code(s): E10.65 - TYPE 1 DIABETES MELLITUS WITH HYPERGLYCEMIA (10) ESRD (end stage renal disease) on dialysis Code(s): N18.6 - END STAGE RENAL DISEASE; Z99.2 - DEPENDENCE ON RENAL DIALYSIS b/l wounds on the legs plan will continue current mgmt await for vascular study will hold off on abx at this time rest as per the team
[2019-07-05] MEDS ORDERED: DEXTROSE 50%-WATER 25 GM/50 ML DISP.SYRIN ONE (14:43)
[2019-07-05] MEDS ORDERED: DEXTROSE 50%-WATER 25 GM/50 ML DISP.SYRIN IVPUSH ONE (14:52)
[2019-07-05] MEDS ORDERED: MIDAZOLAM HCL 2 MG/2 ML SINGLE DOSE VIAL ONE (15:36)
[2019-07-05] MEDS ORDERED: PROPOFOL 20 ML ONE (15:36)
[2019-07-05] MEDS ORDERED: CLINDAMYCIN PHOSPHATE 600 MG/4 ML VIAL ONE (16:06)
[2019-07-05] MEDS ORDERED: LIDOCAINE HCL 1%, 10 MG/ML (20ML VIAL) NR ONE (16:07)
[2019-07-05] MEDS ORDERED: CLINDAMYCIN 600 MG PREMIX BAG IVPB ONE (16:10)
[2019-07-05] MEDS ORDERED: SODIUM CHLORIDE 250 ML IV PRN ×2 (16:44→17:19)
--- NOTE | 2019-07-05 16:44 | PN ---
Progress Note, Physician History of Present Illness: Pt seen and examined at bedside. She is awake and alert. She denies shortness of breath. - Current Medication List Current Medications: Active Medications Acetaminophen (Tylenol -) 650 mg PO Q6H PRN PRN Reason: MILD PAIN Last Admin: 07/04/19 21:09 Dose: 650 mg Atorvastatin Calcium (Lipitor -) 80 mg PO HS [facility] Last Admin: 07/04/19 21:12 Dose: Not Given Carvedilol (Coreg -) 3.125 mg PO BID [facility] Last Admin: 07/05/19 09:58 Dose: 3.125 mg Collagenase (Santyl -) 1 applic TP DAILY [facility]; Protocol Last Admin: 07/04/19 15:25 Dose: 1 applic Fluticasone Propionate (Flonase -) 1 spray NS DAILY [facility] Last Admin: 07/05/19 09:57 Dose: 1 spray Heparin Sodium (Porcine) (Heparin -) 5,000 unit SQ TID [facility] Last Admin: 07/05/19 05:57 Dose: Not Given Insulin Aspart (Novolog Vial Sliding Scale -) 1 vial SQ ACHS [facility]; Protocol Last Admin: 07/05/19 13:52 Dose: Not Given Melatonin (Melatonin) 5 mg PO HS [facility] Last Admin: 07/04/19 21:10 Dose: 5 mg Pantoprazole Sodium (Protonix -) 40 mg PO DAILY [facility] Last Admin: 07/05/19 09:58 Dose: 40 mg Ropinirole HCl (Requip -) 0.5 mg PO HS [facility] Last Admin: 07/04/19 21:12 Dose: 0.5 mg - Objective Vital Signs: Vital Signs Temperature 98.5 F 07/05/19 15:20 Pulse Rate 80 07/05/19 15:20 Respiratory Rate 18 07/05/19 15:20 Blood Pressure 138/44 L 07/05/19 15:20 O2 Sat by Pulse Oximetry (%) 98 07/03/19 21:00 Constitutional: Yes: Calm Eyes: Yes: Conjunctiva Clear HENT: Yes: Atraumatic Neck: Yes: Supple Cardiovascular: Yes: S1, S2 Respiratory: Yes: CTA Bilaterally Gastrointestinal: Yes: Soft Genitourinary: Yes: WNL Musculoskeletal: Yes: WNL Edema: No Neurological: Yes: Oriented Psychiatric: Yes: Oriented Labs: CBC, BMP 07/05/19 06:35 07/05/19 06:35 INR, PTT INR 1.18 (0.83-1.09) H 06/30/19 15:15 Assessment/Plan Current Medications Generic Name Dose Route Start Last Admin Trade Name Venkatesh PRN Reason Stop Dose Admin Acetaminophen 650 mg 06/30/19 21:06 07/04/19 21:09 Tylenol - PO 650 mg Q6H PRN Administration MILD PAIN Atorvastatin Calcium 80 mg 06/30/19 22:00 07/04/19 21:12 Lipitor - PO Not Given HS DEANNA Carvedilol 3.125 mg 06/30/19 22:00 07/05/19 09:58 Coreg - PO 3.125 mg BID DEANNA Administration Collagenase 1 applic 07/01/19 17:20 07/04/19 15:25 Santyl - TP 1 applic DAILY DEANNA Administration Protocol Fluticasone Propionate 1 spray 07/01/19 10:00 07/05/19 09:57 Flonase - NS 1 spray DAILY DEANNA Administration Heparin Sodium (Porcine) 5,000 unit 06/30/19 22:00 07/05/19 05:57 Heparin - SQ Not Given TID DEANNA Insulin Aspart 1 vial 06/30/19 22:00 07/05/19 13:52 Novolog Vial Sliding Scale - SQ Not Given ACHS DEANNA Protocol Melatonin 5 mg 06/30/19 22:00 07/04/19 21:10 Melatonin PO 5 mg HS DEANNA Administration Pantoprazole Sodium 40 mg 07/01/19 10:00 07/05/19 09:58 Protonix - PO 40 mg DAILY DEANNA Administration Ropinirole HCl 0.5 mg 06/30/19 22:00 07/04/19 21:12 Requip - PO 0.5 mg HS DEANNA Administration Laboratory Tests 07/05/19 06:35 Calcium 8.1 L Phosphorus 3.6 Albumin 2.5 L Impression 1. ESRD 2. CHF 3. DM 4. HTN 5. hyperlipidemia 6. nephrotic range proteinuria 7. CAD 8. s/p ct angio 9. lower ext wounds/gangrene Plan - next HD tomorrow - phosphorus level normal - can hold off phos binders - wound care
--- NOTE | 2019-07-05 17:07 | OP ---
Operative Note - Note: Operative Date: 07/05/19 Pre-Operative Diagnosis: left foot gangrene Operation: Aortogram,LLE angiogram, Anterior tibial artery angioplasty Findings: 80% stenosis scattered throught out AT Post-Operative Diagnosis: Same as Pre-op Surgeon: Carlos Enrique Giraldo Anesthesia: Fractional Estimated Blood Loss (mls): 50 Operative Report Dictated: Yes
[2019-07-05] MEDS ORDERED: ONDANSETRON 4 MG/2 ML VIAL IVPUSH PRN (17:09)
[2019-07-05] MEDS: CLOPIDOGREL BISULFATE 75 MG TABLET (FP) PO SCH ×2 (17:40→18:55)
[2019-07-05] MEDS: COLLAGENASE CLOSTRIDIUM HIST. 30 GRAMS TUBE TP SCH (18:55)
[2019-07-05] MEDS: rOPINIRole HCL 0.5 MG TABLET PO SCH (20:59)
[2019-07-05] MEDS: MELATONIN 5 MG TABLETS PO SCH (20:59)
[2019-07-05] MEDS: ATORVASTATIN CA 80 MG TABLET (FP) PO SCH (20:59)
[2019-07-05] MEDS: ACETAMINOPHEN 325 MG TABLET (FP) PO PRN (21:00)
--- NOTE | 2019-07-05 23:05 | CONS ---
DATE OF CONSULTATION: DATE OF DICTATION: 07/05/2019 CARDIOLOGY CONSULTATION REQUESTING PHYSICIAN: Hospitalist Service HISTORY OF PRESENT ILLNESS: Patient is a 59-year-old white female with a history of coronary artery disease, status post myocardial infarction, status post coronary artery bypass grafting, severe left ventricular systolic dysfunction, congestive heart failure, end-stage renal disease dialysis dependent, diabetes mellitus poorly controlled, hypercholesterolemia, status post ICD for primary prophylaxis, nonhealing ulcers involving both heels and toes of the left foot. Patient was admitted for arterial angiography of the lower extremities, and she underwent left anterior tibial angioplasty. Patient also has history of diabetic retinopathy and neuropathy. There is no history of recent chest pain on discomfort either at rest or with exertion. No exertional dyspnea, paroxysmal nocturnal dyspnea or orthopnea reported. She has intermittent fatigue. No history of palpitations, no history of ICD discharges. Patient states that during dialysis, she has significant drop in blood pressure. PAST HISTORY: As mentioned in the history of present illness. Status post sternal wound infection. SURGICAL HISTORY: Status post coronary artery bypass grafting. Status post insertion of a dialysis port. SOCIAL HISTORY: , has 2 sons and a daughter. Used to smoke 1 packet of cigarettes per day, stopped approximately 22 years ago. Denies alcohol use or excessive use of caffeine. FAMILY HISTORY: Mother at the age of 69 related to cerebrovascular accident, she was hypertensive. Father at age 89 of natural causes. Had 1 sister who apparently is healthy. ALLERGIES: 1. PENICILLIN. 2. States that she has had allergy to PREDNISONE. 3. History of hypertension with BETA BLOCKERS. MEDICATION: Current medication: 1. Coreg 3.125 mg b.i.d. 2. Zofran 4 mg IV q.6 h. p.r.n. for nausea. 3. Tylenol 650 mg p.o. q.8 h. 4. Heparin 5000 units subcutaneous t.i.d. 5. Flonase 1 spray daily. 6. Requip 0.5 mg p.o. at bedtime. 7. Procrit 10,000 units IV push. 8. Atorvastatin 80 mg p.o. daily. 9. NovoLog insulin via sliding scale. 10. Fentanyl 25 mg IV push q.5 h. p.r.n. for pain. 11. Melatonin 5 mg p.o. at bedtime. 12. Clopidogrel 75 mg p.o. daily. 13. Protonix 40 mg p.o. daily. 14. Santyl 1 application daily. REVIEW OF SYSTEMS: Constitutional: No history of chills, fever, or night sweats reported. No history of unintentional weight loss. HEENT: No history of headaches. History of diabetic retinopathy epistaxis, hoarseness, tinnitus, or deafness. Cardiovascular: See history of present illness. Respiratory: No history of cough, expectoration, or hemoptysis. Gastrointestinal: No history of nausea, vomiting, melena, or hematemesis. Neurological: No history of seizures or syncope. No history of focal weakness. Endocrine: See history of present illness. Musculoskeletal: See history of present illness. Hematological: History of anemia. Genitourinary: No history of dysuria, frequency, or hematuria. Skin: History of nonhealing ulcers involving both feet. PHYSICAL EXAMINATION: General: A 59-year-old female in no acute distress, there was pallor, no cyanosis noted. Neck: Supple. No jugulovenous distention, carotids were 2+, upstrokes were normal, no bruits were heard, there was no thyromegaly. Heart: No heaves or thrills. PMI was in the 5th intercostal space. S1 and S2 were normal. Grade 2/6 peak crescendo systolic murmur was heard along the left sternal border, and apex. No diastolic murmur or gallops were heard. Lungs: Clear on auscultation. Abdomen: Soft, protuberant, nontender, no hepatosplenomegaly or palpable masses were felt. Extremities: No calf tenderness or dependent edema. There were nonhealing ulcerations involving both heels. There was ulceration, possible gangrenous changes involving the 2nd and 3rd toe of the left foot. Dorsalis pedis and posterior tibial pulses were not palpable. Femoral pulses were 1 to 2 plus. LABORATORY DATA: ECG is not available. Lab data July 05, 2019, CBC: WBC 9800, hematocrit 8.5 g/dL, platelet count 273,000. Chemistry: Sodium 137, potassium 4.1, chloride 99, CO2 of 29 mmol/L. BUN 23.1, creatinine 4.1 mg/dL. Random glucose at . X-ray chest is not available. IMPRESSION: 1. Coronary artery disease, status post myocardial infarction, status post coronary artery bypass grafting. 2. Severe left ventricular systolic dysfunction. 3. Status post congestive heart failure. 4. Status post implantable cardioverter defibrillator for primary prophylaxis. 5. Peripheral arterial disease. 6. Diabetes mellitus. 7. End-stage renal disease dialysis dependent. 8. Anemia. 9. History of hypertensive episodes during dialysis. RECOMMENDATION:1. Carvedilol should be held in the morning on the day of dialysis. 2. Continue carvedilol b.i.d. on nondialysis days. 3. Counseled regarding dietary restrictions. 4. EKG. 5. X-ray chest. Prognosis critical. Thank you for your referral. Time spent 1 hour 10 minutes with the patient and reviewing lab data and admission record. TOY PEDRO M.D. [id number]
[2019-07-06] MEDS: INSULIN SLIDING SCALE (NOVOLOG) 1 VIAL SQ SCH ×4 (06:18→22:58)
[2019-07-06] MEDS: HEPARIN NA (PORCINE) 5,000 UNITS/ML 1ML VIAL SQ SCH ×3 (06:20→22:58)
[2019-07-06 07:12] LABS: BASO % 0.9 % (0-2.0); EOS % 4.8 % (0-4.5); HEMATOCRIT 24.5 % (32.4-45.2); LYMPH % 12.9 % (8-40); MCH 31.6 pg (25.7-33.7); MCHC 32.7 g/dl (32.0-36.0); MEAN CELL VOLUME 96.8 fl (80-96); MEAN PLT VOLUME 7.7 fl (7.5-11.1); MONO % 4.6 % (3.8-10.2); NEUT % 76.8 % (42.8-82.8); PLATELET COUNT 243 K/MM3 (134-434); RBC 2.53 M/mm3 (3.60-5.2); RDW 18.3 % (11.6-15.6); WHITE BLOOD COUNT 10.7 K/mm3 (4.0-10.0)
[2019-07-06 07:40] LABS: ALBUMIN 2.3 g/dl (3.4-5.0); BILIRUBIN,TOTAL 0.7 mg/dL (0.2-1); BLOOD UREA NITROGEN 37.1 mg/dL (7-18); CREATININE 5.6 mg/dL (0.55-1.3); MAGNESIUM 1.8 mg/dL (1.8-2.4); POTASSIUM 3.9 mmol/L (3.5-5.1); TOT PROT 5.7 g/dl (6.4-8.2)
--- NOTE | 2019-07-06 08:39 | PN ---
Progress Note (short form) - Note Progress Note: VASCULAR SURGERY 59yo F s/p LLE angio POD 1, pt seen and examined at bedside. Pt states that her pain is controlled and denies swelling. Pt denies fever, chills, n/v. Last Vital Signs Temp Pulse Resp BP Pulse Ox 98.6 F 77 18 114/48 L 99 07/06/19 06:00 07/06/19 06:00 07/06/19 06:00 07/06/19 06:00 07/05/19 21:00 CBC, BMP 07/06/19 06:20 07/06/19 06:20 PE: Gen: A&O X3 Resp: breathing comfortably RT groin: no erythema, pulsatile swelling, incision clean with no erythema. Problem List - Problems (1) Ischemic ulcer of both feet Assessment/Plan: Plan -pt is cleared for surgical standpoint from vascular -foot wound care per Podiatry Dr. Copeland -pt can follow up with Dr. Giraldo, as outpatient to schedule AVF creation, if pt can get vein duplex inpatient would be ideal as missed her appt due to hospitalization. Pt discussed with Dr. Giraldo who agrees with plan Code(s): L97.519 - NON-PRS CHRONIC ULCER OTH PRT RIGHT FOOT W UNSP SEVERITY; L97.529 - NON-PRESSURE CHRONIC ULCER OTH PRT LEFT FOOT W UNSP SEVERITY
[2019-07-06] MEDS ORDERED: PT OWN MED DRAWER 7, Y5N ONE ×2 (09:12→17:23)
[2019-07-06] MEDS: ACETAMINOPHEN 325 MG TABLET (FP) PO PRN (09:47)
[2019-07-06] MEDS: CLOPIDOGREL BISULFATE 75 MG TABLET (FP) PO SCH (09:47)
[2019-07-06] MEDS: PANTOPRAZOLE 40 MG TABLET PO SCH (09:47)
[2019-07-06] MEDS ORDERED: EPOETIN ALFA 10,000 UNIT/1 ML VIAL IVPUSH ONE ×2 (10:00→16:44)
[2019-07-06] MEDS: CARVEDILOL 3.125 MG TABLET (FP) PO SCH ×2 (10:04→22:58)
[2019-07-06] MEDS: FLUTICASONE PROP 0.05% 16 GM NASAL SPRAY NS SCH (10:18)
[2019-07-06] MEDS: COLLAGENASE CLOSTRIDIUM HIST. 30 GRAMS TUBE TP SCH (10:26)
--- NOTE | 2019-07-06 11:41 | PN ---
Progress Note, Physician - Current Medication List Current Medications: Active Medications Acetaminophen (Tylenol -) 650 mg PO Q6H PRN PRN Reason: MILD PAIN Last Admin: 07/06/19 09:47 Dose: 650 mg Atorvastatin Calcium (Lipitor -) 80 mg PO HS [facility] Last Admin: 07/05/19 20:59 Dose: Not Given Carvedilol (Coreg -) 3.125 mg PO BID [facility] Last Admin: 07/06/19 10:04 Dose: Not Given Clopidogrel Bisulfate (Plavix -) 75 mg PO DAILY [facility] Last Admin: 07/06/19 09:47 Dose: 75 mg Collagenase (Santyl -) 1 applic TP DAILY [facility]; Protocol Fentanyl (Sublimaze Injection -) 25 mcg IVPUSH [id number] PRN PRN Reason: PAIN-PACU ORDER X 4 DOSES ONLY Fluticasone Propionate (Flonase -) 1 spray NS DAILY [facility] Heparin Sodium (Porcine) (Heparin -) 5,000 unit SQ TID [facility] Last Admin: 07/06/19 06:20 Dose: 5,000 unit Sodium Chloride (Normal Saline -) 250 mls @ 3,000 mls/hr IV PRN PRN PRN Reason: Hypotension during Dialysis Stop: 07/06/19 23:00 Insulin Aspart (Novolog Vial Sliding Scale -) 1 vial SQ ACHS [facility]; Protocol Last Admin: 07/06/19 06:18 Dose: Not Given Melatonin (Melatonin) 5 mg PO HS [facility] Last Admin: 07/05/19 20:59 Dose: 5 mg Ondansetron HCl (Zofran Injection) 4 mg IVPUSH Q6H PRN PRN Reason: NAUSEA AND/OR VOMITING Pantoprazole Sodium (Protonix -) 40 mg PO DAILY [facility] Last Admin: 07/06/19 09:47 Dose: 40 mg Ropinirole HCl (Requip -) 0.5 mg PO [facility] Last Admin: 07/05/19 20:59 Dose: 0.5 mg - Objective Vital Signs: Vital Signs Temperature 97.8 F 07/06/19 10:00 Pulse Rate 79 07/06/19 10:35 Respiratory Rate 18 07/06/19 10:35 Blood Pressure 143/61 07/06/19 10:35 O2 Sat by Pulse Oximetry (%) 99 07/05/19 21:00 Labs: CBC, BMP 07/06/19 06:20 07/06/19 06:20 INR, PTT INR 1.18 (0.83-1.09) H 06/30/19 15:15
--- NOTE | 2019-07-06 12:22 | PN ---
Progress Note, Physician Chief Complaint: fuv b/l feet - Current Medication List Current Medications: Active Medications Acetaminophen (Tylenol -) 650 mg PO Q6H PRN PRN Reason: MILD PAIN Last Admin: 07/06/19 09:47 Dose: 650 mg Atorvastatin Calcium (Lipitor -) 80 mg PO HS [facility] Last Admin: 07/05/19 20:59 Dose: Not Given Carvedilol (Coreg -) 3.125 mg PO BID [facility] Last Admin: 07/06/19 10:04 Dose: Not Given Clopidogrel Bisulfate (Plavix -) 75 mg PO DAILY [facility] Last Admin: 07/06/19 09:47 Dose: 75 mg Collagenase (Santyl -) 1 applic TP DAILY [facility]; Protocol Fentanyl (Sublimaze Injection -) 25 mcg IVPUSH [id number] PRN PRN Reason: PAIN-PACU ORDER X 4 DOSES ONLY Fluticasone Propionate (Flonase -) 1 spray NS DAILY [facility] Heparin Sodium (Porcine) (Heparin -) 5,000 unit SQ TID [facility] Last Admin: 07/06/19 06:20 Dose: 5,000 unit Sodium Chloride (Normal Saline -) 250 mls @ 3,000 mls/hr IV PRN PRN PRN Reason: Hypotension during Dialysis Stop: 07/06/19 23:00 Insulin Aspart (Novolog Vial Sliding Scale -) 1 vial SQ ACHS [facility]; Protocol Last Admin: 07/06/19 06:18 Dose: Not Given Melatonin (Melatonin) 5 mg PO [facility] Last Admin: 07/05/19 20:59 Dose: 5 mg Ondansetron HCl (Zofran Injection) 4 mg IVPUSH Q6H PRN PRN Reason: NAUSEA AND/OR VOMITING Pantoprazole Sodium (Protonix -) 40 mg PO DAILY [facility] Last Admin: 07/06/19 09:47 Dose: 40 mg Ropinirole HCl (Requip -) 0.5 mg PO [facility] Last Admin: 07/05/19 20:59 Dose: 0.5 mg - Objective Vital Signs: Vital Signs Temperature 97.8 F 07/06/19 10:00 Pulse Rate 79 07/06/19 10:35 Respiratory Rate 18 07/06/19 10:35 Blood Pressure 143/61 07/06/19 10:35 O2 Sat by Pulse Oximetry (%) 99 07/05/19 21:00 Extremities: Yes: Other (+necrotic wounds b/l feet and heels left worse than right) Labs: CBC, BMP 07/06/19 06:20 07/06/19 06:20 INR, PTT INR 1.18 (0.83-1.09) H 06/30/19 15:15 Assessment/Plan pvd ischemic wounds gangarene Santyl to wounds b/l feet. Discussed with Dr. oliveira yesterday and agreed to watch wounds on left demarcate. Will follow. Continue offloading heels b/l with pillow under calf.
--- NOTE | 2019-07-06 13:21 | PN ---
Progress Note, Physician History of Present Illness: Pt seen and examined at bedside. She is awake and alert. She denies shortness of breath. She is tolerating HD. - Current Medication List Current Medications: Active Medications Acetaminophen (Tylenol -) 650 mg PO Q6H PRN PRN Reason: MILD PAIN Last Admin: 07/06/19 09:47 Dose: 650 mg Atorvastatin Calcium (Lipitor -) 80 mg PO HS [facility] Last Admin: 07/05/19 20:59 Dose: Not Given Carvedilol (Coreg -) 3.125 mg PO BID [facility] Last Admin: 07/06/19 10:04 Dose: Not Given Clopidogrel Bisulfate (Plavix -) 75 mg PO DAILY [facility] Last Admin: 07/06/19 09:47 Dose: 75 mg Collagenase (Santyl -) 1 applic TP DAILY [facility]; Protocol Fentanyl (Sublimaze Injection -) 25 mcg IVPUSH [id number] PRN PRN Reason: PAIN-PACU ORDER X 4 DOSES ONLY Fluticasone Propionate (Flonase -) 1 spray NS DAILY [facility] Heparin Sodium (Porcine) (Heparin -) 5,000 unit SQ TID [facility] Last Admin: 07/06/19 06:20 Dose: 5,000 unit Sodium Chloride (Normal Saline -) 250 mls @ 3,000 mls/hr IV PRN PRN PRN Reason: Hypotension during Dialysis Stop: 07/06/19 23:00 Insulin Aspart (Novolog Vial Sliding Scale -) 1 vial SQ ACHS [facility]; Protocol Last Admin: 07/06/19 06:18 Dose: Not Given Melatonin (Melatonin) 5 mg PO HS [facility] Last Admin: 07/05/19 20:59 Dose: 5 mg Ondansetron HCl (Zofran Injection) 4 mg IVPUSH Q6H PRN PRN Reason: NAUSEA AND/OR VOMITING Pantoprazole Sodium (Protonix -) 40 mg PO DAILY [facility] Last Admin: 07/06/19 09:47 Dose: 40 mg Ropinirole HCl (Requip -) 0.5 mg PO HS [facility] Last Admin: 07/05/19 20:59 Dose: 0.5 mg - Objective Vital Signs: Vital Signs Temperature 97.8 F 07/06/19 10:00 Pulse Rate 79 07/06/19 13:13 Respiratory Rate 18 07/06/19 13:13 Blood Pressure 151/61 02/19/20 13:13 O2 Sat by Pulse Oximetry (%) 99 07/06/19 09:00 Constitutional: Yes: Calm Eyes: Yes: Conjunctiva Clear HENT: Yes: Atraumatic Neck: Yes: Supple Cardiovascular: Yes: S1, S2 Respiratory: Yes: CTA Bilaterally Gastrointestinal: Yes: Soft Genitourinary: Yes: WNL Musculoskeletal: Yes: WNL Edema: No Neurological: Yes: Oriented Psychiatric: Yes: Oriented Labs: CBC, BMP 07/06/19 06:20 07/06/19 06:20 INR, PTT INR 1.18 (0.83-1.09) H 06/30/19 15:15 Assessment/Plan Current Medications Generic Name Dose Route Start Last Admin Trade Name Freq PRN Reason Stop Dose Admin Acetaminophen 650 mg 07/05/19 17:19 07/06/19 09:47 Tylenol - PO 650 mg Q6H PRN Administration MILD PAIN Atorvastatin Calcium 80 mg 07/05/19 22:00 07/05/19 20:59 Lipitor - PO Not Given HS [facility] Carvedilol 3.125 mg 07/05/19 22:00 07/06/19 10:04 Coreg - PO Not Given BID [facility] Clopidogrel Bisulfate 75 mg 07/05/19 17:45 07/06/19 09:47 Plavix - PO 75 mg DAILY [facility] Administration Collagenase 1 applic 07/06/19 10:00 Santyl - TP DAILY [facility] Protocol Fentanyl 25 mcg 07/05/19 17:09 Sublimaze Injection - IVPUSH [id number] PRN PAIN-PACU ORDER X 4 DOSES ONLY Fluticasone Propionate 1 spray 07/06/19 10:00 Flonase - NS DAILY [facility] Heparin Sodium (Porcine) 5,000 unit 07/05/19 22:00 07/06/19 06:20 Heparin - SQ 5,000 unit TID [facility] Administration Sodium Chloride 250 mls @ 3,000 mls/hr 07/05/19 17:19 Normal Saline - IV 07/06/19 23:00 PRN PRN Hypotension during Dialysis Insulin Aspart 1 vial 07/05/19 22:00 07/06/19 06:18 Novolog Vial Sliding Scale - SQ Not Given ACHS [facility] Protocol Melatonin 5 mg 07/05/19 22:00 07/05/19 20:59 Melatonin PO 5 mg HS [facility] Administration Ondansetron HCl 4 mg 07/05/19 17:09 Zofran Injection IVPUSH Q6H PRN NAUSEA AND/OR VOMITING Pantoprazole Sodium 40 mg 07/06/19 10:00 07/06/19 09:47 Protonix - PO 40 mg DAILY [facility] Administration Ropinirole HCl 0.5 mg 07/05/19 22:00 07/05/19 20:59 Requip - PO 0.5 mg HS [facility] Administration Impression 1. ESRD 2. CHF 3. DM 4. HTN 5. hyperlipidemia 6. nephrotic range proteinuria 7. CAD 8. s/p ct angio 9. lower ext wounds/gangrene Plan - Hd today - discussed with vascular, she had angio - podiatry follow up - vein mapping - wound care - cont renal diet
--- NOTE | 2019-07-06 16:34 | PN ---
Physical Exam: SUBJECTIVE: Patient seen and examined in dialysis. comfortable at rest. OBJECTIVE: Patient is a 59 year-old female with a past medical history of CAD, diastolic heart failure s/p AICD, COPD, Type II IDDM, ESRD on HD (M,W,F), RLS, and bilateral foot ulcers. Several weeks ago patient had a vascular study and was told she had decreased circulation in her lower extremities. Today she had a scheduled CTA with runoff. After the test she was told to come to the ED to be admitted. Denies fever, sweats, chills. No significant change in foot wounds from chronic baseline. s/p LLE angio, CASH angioplasty 07/05/[address] Giraldo. Prior to d/c will also need vein mapping to place avf. Vital Signs Period Temp Pulse Resp BP Sys/Horowitz Pulse Ox Last 24 Hr 97.6 F-98.6 F 71-86 16-18 112-162/38-77 98-100 GENERAL: The patient is awake, alert, and fully oriented, in no acute distress. HEAD: Normal with no signs of trauma. EYES: PERRL, extraocular movements intact, sclera anicteric, conjunctiva clear. No ptosis. ENT: Ears normal, nares patent, oropharynx clear without exudates, moist mucous membranes. NECK: Trachea midline, full range of motion, supple. LUNGS: Breath sounds equal, clear to auscultation bilaterally HEART: Regular rate and rhythm ABDOMEN: Soft, nontender, nondistended, normoactive bowel sounds EXTREMITIES: left foot, necrotic wounds first, second, third, fourth toes and area proximal to second and third toes; large necrotic heel wound; no erythema, warmth, swelling. right foot: necrotic wounds second and fourth toes; large necrotic heel wound; no erythema, warmth, swelling. she is s/p left lower ext angiogram/angioplasty on 07/05/2019 Laboratory Results - last 24 hr 07/05/19 07/05/19 07/06/19 17:47 20:51 06:17 WBC RBC Hgb Hct MCV MCH MCHC RDW Plt Count MPV Absolute Neuts (auto) Neutrophils % Lymphocytes % Monocytes % Eosinophils % Basophils % Nucleated RBC % Sodium Potassium Chloride Carbon Dioxide Anion Gap BUN Creatinine Est GFR (CKD-EPI)AfAm Est GFR (CKD-EPI)NonAf POC Glucometer 86 123 128 Random Glucose Calcium Magnesium Total Bilirubin AST ALT Alkaline Phosphatase Total Protein Albumin 07/06/19 07/06/19 07/06/19 06:20 06:20 13:51 WBC 10.7 H RBC 2.53 L Hgb 8.0 L Hct 24.5 L MCV 96.8 H MCH 31.6 MCHC 32.7 RDW 18.3 H Plt Count 243 MPV 7.7 Absolute Neuts (auto) 8.2 H Neutrophils % 76.8 Lymphocytes % 12.9 Monocytes % 4.6 Eosinophils % 4.8 H Basophils % 0.9 Nucleated RBC % 0 Sodium 138 Potassium 3.9 Chloride 99 Carbon Dioxide 29 Anion Gap 10 BUN 37.1 H Creatinine 5.6 H Est GFR (CKD-EPI)AfAm 8.90 Est GFR (CKD-EPI)NonAf 7.68 POC Glucometer 97 Random Glucose 122 H Calcium 8.0 L Magnesium 1.8 Total Bilirubin 0.7 AST 13 L ALT 10 L Alkaline Phosphatase 191 H Total Protein 5.7 L Albumin 2.3 L Active Medications Generic Name Dose Route Start Last Admin Trade Name Freq PRN Reason Stop Dose Admin Acetaminophen 650 mg 07/05/19 17:19 07/06/19 09:47 Tylenol - PO 650 mg Q6H PRN Administration MILD PAIN Atorvastatin Calcium 80 mg 07/05/19 22:00 07/05/19 20:59 Lipitor - PO Not Given HS [facility] Carvedilol 3.125 mg 07/05/19 22:00 07/06/19 10:04 Coreg - PO Not Given BID [facility] Clopidogrel Bisulfate 75 mg 07/05/19 17:45 07/06/19 09:47 Plavix - PO 75 mg DAILY [facility] Administration Collagenase 1 applic 07/06/19 10:00 Santyl - TP DAILY [facility] Protocol Fentanyl 25 mcg 07/05/19 17:09 Sublimaze Injection - IVPUSH [id number] PRN PAIN-PACU ORDER X 4 DOSES ONLY Fluticasone Propionate 1 spray 07/06/19 10:00 07/06/19 10:18 Flonase - NS 1 spray DAILY [facility] Administration Heparin Sodium (Porcine) 5,000 unit 07/05/19 22:00 07/06/19 14:28 Heparin - SQ 5,000 unit TID [facility] Administration Sodium Chloride 250 mls @ 3,000 mls/hr 07/05/19 17:19 Normal Saline - IV 07/06/19 23:00 PRN PRN Hypotension during Dialysis Insulin Aspart 1 vial 07/05/19 22:00 07/06/19 14:19 Novolog Vial Sliding Scale - SQ Not Given ACHS [facility] Protocol Melatonin 5 mg 07/05/19 22:00 07/05/19 20:59 Melatonin PO 5 mg HS [facility] Administration Ondansetron HCl 4 mg 07/05/19 17:09 Zofran Injection IVPUSH Q6H PRN NAUSEA AND/OR VOMITING Pantoprazole Sodium 40 mg 07/06/19 10:00 07/06/19 09:47 Protonix - PO 40 mg DAILY [facility] Administration Ropinirole HCl 0.5 mg 07/05/19 22:00 07/05/19 20:59 Requip - PO 0.5 mg HS [facility] Administration ASSESSMENT/PLAN: Problem List - Problems (1) Anemia in chronic kidney disease Assessment/Plan: on epogen. monitor cbc daily. patient with extensive cardiac disease. transfuse if hmg <8. Code(s): N18.9 - CHRONIC KIDNEY DISEASE, UNSPECIFIED; D63.1 - ANEMIA IN CHRONIC KIDNEY DISEASE (2) Diabetes Assessment/Plan: diabetic diet novolog ss maintain fasting glucose <180 Code(s): E11.9 - TYPE 2 DIABETES MELLITUS WITHOUT COMPLICATIONS (3) Hypokalemia Assessment/Plan: monitor electrolytes daily Code(s): E87.6 - HYPOKALEMIA (4) Ischemic ulcer of both feet Assessment/Plan: chronic ulcer of heels following in wound clinic s/p angiogram on 07/05/2019, podiatry to evaluate Code(s): L97.519 - NON-PRS CHRONIC ULCER OTH PRT RIGHT FOOT W UNSP SEVERITY; L97.529 - NON-PRESSURE CHRONIC ULCER OTH PRT LEFT FOOT W UNSP SEVERITY (5) YVES (acute kidney injury) Code(s): N17.9 - ACUTE KIDNEY FAILURE, UNSPECIFIED (6) Acute kidney injury superimposed on CKD Code(s): N17.9 - ACUTE KIDNEY FAILURE, UNSPECIFIED; N18.9 - CHRONIC KIDNEY DISEASE, UNSPECIFIED (7) Acute renal failure Code(s): N17.9 - ACUTE KIDNEY FAILURE, UNSPECIFIED (8) CKD (chronic kidney disease) requiring chronic dialysis Assessment/Plan: received dialysis today Code(s): N18.6 - END STAGE RENAL DISEASE; Z99.2 - DEPENDENCE ON RENAL DIALYSIS (9) Diabetes mellitus, insulin dependent (IDDM), uncontrolled Code(s): E10.65 - TYPE 1 DIABETES MELLITUS WITH HYPERGLYCEMIA (10) ESRD (end stage renal disease) on dialysis Assessment/Plan: dialysis per renal Code(s): N18.6 - END STAGE RENAL DISEASE; Z99.2 - DEPENDENCE ON RENAL DIALYSIS (11) DVT prophylaxis Assessment/Plan: heparin tid Code(s): Z29.9 - ENCOUNTER FOR PROPHYLACTIC MEASURES, UNSPECIFIED Visit type - Emergency Visit Emergency Visit: Yes ED Registration Date: 06/30/19 Care time: The patient presented to the Emergency Department on the above date and was hospitalized for further evaluation of their emergent condition. - New Patient This patient is new to me today: No - Critical Care Critical Care patient: No - Discharge Referral Referred to [facility] No
--- NOTE | 2019-07-06 16:51 | CONSULT ---
Consult Consult Specialty:: podiatry Reason for Consultation:: Eval for b/l gangrenous changes. - History of Present Illness Chief Complaint: 59 y/o ESRD and DB femal with b/l gangrenous changes. States she had kidney failure and soon after started to have wounds on the digits. Just underwent stents and feeling well. Was called for 2nd oppinions. 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 Cardio/Vascular: Yes: CAD Pulmonary: Yes: COPD Renal/: Yes: Renal Failure, Hemodialysis Endocrine: Yes: Diabetes Mellitus - Past Surgical History Past Surgical History: Yes: Arthrosocopy (Rt knee surgery in her 20s secondary to chrondomalacia), CABG - Alcohol/Substance Use Hx Alcohol Use: No History of Substance Use: reports: None - Smoking History Smoking history: Former smoker Have you smoked in the past 12 months: No Aproximately how many cigarettes per day: 0 If you are a former smoker, when did you quit?: 20 yrs ago - Social History Usual Living Arrangement: Other (adult children) ADL: Independent 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 Home Medications - Allergies Allergies/Adverse Reactions: Allergies Allergy/AdvReac Type Severity Reaction Status Date / Time Penicillins Allergy Severe RESPIRATORY Verified 06/30/19 14:00 DISTRESS prednisone AdvReac Severe disorientat Verified 06/30/19 14:00 ion gluten AdvReac Verified 06/30/19 14:00 morphine AdvReac disorientat Verified 06/30/19 14:00 ion BETA BLOCKERS Allergy Severe SEVERE Uncoded 06/30/19 14:00 HYPOTENSION - Home Medications Home Medications: Ambulatory Orders Fluticasone Prop 0.05% Nasal [Flonase -] 1 - 2 spray NS DAILY 02/03/19 Carvedilol [Coreg -] 3.125 mg PO BID tablet 04/04/19 Glimepiride [Amaryl -] 2 mg PO DAILY@0700 04/28/19 Collagenase Clostridium Hist. [Santyl -] 1 appful TP DAILY 05/19/19 Atorvastatin Calcium 80 mg PO DAILY 06/09/19 Pantoprazole Sodium 40 mg PO DAILY 06/09/19 Spironolactone 12.5 mg PO DAILY 06/09/19 Melatonin 5 mg PO DAILY 06/15/19 Ropinirole HCl [Requip -] 0.5 mg PO HS 06/15/19 Physical Exam Vital Signs: Vital Signs Temperature 97.8 F 07/06/19 10:00 Pulse Rate 79 07/06/19 13:13 Respiratory Rate 18 07/06/19 13:13 Blood Pressure 151/61 07/06/19 13:13 O2 Sat by Pulse Oximetry (%) 99 07/06/19 09:00 Wound/Incision: Yes: Other (Left 2/3rd digit dry gangrenous cahnges, 2nd more pronounced, dorsal MPJ ulceration as well with scabbing, no erythema, mild edema , no bone exposed, no signs of infection; b/l heel eshcars.) Labs: CBC, BMP 07/06/19 06:20 07/06/19 06:20 Assessment/Plan 59 y/o female with kidney failure and diabetes. Evaluated and reviewed discussed opptions with patient we went over the chances of needing amputation vs possibility of healing will allow time to see if vascular status improvement will lead to some healing can continue santyl to the wounds and xeroform to the heels strict heel offloading boots at all times new xrays ordered; cannot have MRI due to stent but they do not appear infected HBO consult placed Can continue to follow if patient wishes; will also discuss with Dr. Alex
[2019-07-06] MEDS ORDERED: INSULIN (NOVOLOG) ASPART 100 UNITS/ML 10ML VIAL ONE ×2 (17:22→21:36)
[2019-07-06] MEDS: MELATONIN 5 MG TABLETS PO SCH (22:57)
[2019-07-06] MEDS: ATORVASTATIN CA 80 MG TABLET (FP) PO SCH (22:57)
[2019-07-06] MEDS: rOPINIRole HCL 0.5 MG TABLET PO SCH (22:58)
--- NOTE | 2019-07-06 23:23 | PN ---
DATE OF VISIT: DATE OF DICTATION: 07/06/2019 This 59-year-old female was admitted for left lower extremity angioplasty. Known case of coronary artery disease status post myocardial infarction, status post coronary artery bypass grafting, status post severe left ventricular systolic dysfunction, end-stage renal disease hemodialysis dependent, congestive heart failure, bilateral ischemic ulcers of the feet, history of hypertensive episodes during dialysis most likely related to combination of beta blockers and excessive fluid removal. Patient did not experience any hypotensive episode during dialysis as carvedilol was held prior to her under hemodialysis. MEDICATION: 1. Zofran injection 4 mg IV push q.6 p.r.n. 2. Tylenol 650 mg q.6 p.r.n. 3. Heparin 5000 units subcutaneous t.i.d. 4. Carvedilol 2.125 mg p.o. b.i.d. 5. Flonase 1 spray daily. 6. Requip 0.5 mg p.o. at bedtime. 7. Normal saline 250 mg p.r.n. 8. Atorvastatin 80 mg p.o. at bedtime. 9. NovoLog insulin via sliding scale. 10. Fentanyl 25 mg IV push q.5 h. p.r.n. for pain. 11. Melatonin 5 mg p.o. at bedtime. 12. Clopidogrel 75 mg p.o. daily. 13. Protonix 40 mg p.o. daily. 14. Santyl 1 application daily. PHYSICAL EXAMINATION: General: Patient was in no distress, slight pallor, no cyanosis, clubbing or jaundice. Vital signs: Blood pressure 151/61 mmHg, pulse 79 beats per minute and regular, respirations 18 per minute. Neck: Supple, no jugulovenous distention, hepatojugular reflex was negative, carotids were 2+, upstrokes were normal, no bruits were heard. Heart: PMI was in the 5th intercostal space, no heaves or thrills. S1 and S2 were normal. Grade 1 to 2 over 6 decrescendo systolic murmur was heard along the left sternal border at the apex. No diastolic murmur or gallops were heard. Lungs: Clear on auscultation. Abdomen: Soft, protuberant, nontender, no hepatosplenomegaly or palpable masses were felt. Extremities: No calf tenderness. 1+ left lower extremity edema and trace right pretibial edema. Both feet were bandaged. LABORATORY DATA: CBC July 06, 2019: WBC 10,700, hemoglobin 8.0 g/dL, platelet count 243,000. Chemistry July 06, 2019: Sodium 138, potassium 3.9, chloride 99, CO2 of 29 mmol/L, BUN 37.1, creatinine 5.6 mg/dL, random glucose was 122 mg/dL, magnesium was 1.8 mg/dL. IMPRESSION: 1. Coronary artery disease status post myocardial infarction, status post coronary artery bypass graft. 2. History of congestive heart failure. 3. Severe left ventricular systolic dysfunction. 4. Diabetes mellitus with multisystem involvement. 5. End-stage renal disease, hemodialysis dependent. 6. Hypercholesterolemia. 7. Status post implantable cardioverter defibrillator insertion for primary prophylaxis. 8. Peripheral arterial disease. 9. Hyperlipidemia. RECOMMENDATION: 1. Continue current medications. 2. Patient was again counseled regarding dietary restrictions. 3. Hold Coreg morning dose on the day of hemodialysis. 4. Prognosis guarded. TOY PEDRO M.D. [id number]
[2019-07-07] MEDS: HEPARIN NA (PORCINE) 5,000 UNITS/ML 1ML VIAL SQ SCH ×2 (06:53→13:50)
[2019-07-07] MEDS: INSULIN SLIDING SCALE (NOVOLOG) 1 VIAL SQ SCH ×3 (06:54→16:42)
[2019-07-07 09:03] VITALS: BP 157/67; PULSE 82; TEMP 99.4
--- NOTE | 2019-07-07 09:29 | PN ---
Progress Note, Physician History of Present Illness: rodo no new issues angio done feels legs are doing better - Current Medication List Current Medications: Active Medications Acetaminophen (Tylenol -) 650 mg PO Q6H PRN PRN Reason: MILD PAIN Last Admin: 07/06/19 09:47 Dose: 650 mg Atorvastatin Calcium (Lipitor -) 80 mg PO HS [facility] Last Admin: 07/06/19 22:57 Dose: Not Given Carvedilol (Coreg -) 3.125 mg PO BID [facility] Last Admin: 07/06/19 22:58 Dose: 3.125 mg Clopidogrel Bisulfate (Plavix -) 75 mg PO DAILY [facility] Last Admin: 07/06/19 09:47 Dose: 75 mg Collagenase (Santyl -) 1 applic TP DAILY [facility]; Protocol Last Admin: 07/06/19 10:26 Dose: 1 applic Fentanyl (Sublimaze Injection -) 25 mcg IVPUSH [id number] PRN PRN Reason: PAIN-PACU ORDER X 4 DOSES ONLY Fluticasone Propionate (Flonase -) 1 spray NS DAILY [facility] Last Admin: 07/06/19 10:18 Dose: 1 spray Heparin Sodium (Porcine) (Heparin -) 5,000 unit SQ TID [facility] Last Admin: 07/07/19 06:53 Dose: 5,000 unit Insulin Aspart (Novolog Vial Sliding Scale -) 1 vial SQ ACHS [facility]; Protocol Last Admin: 07/07/19 06:54 Dose: Not Given Melatonin (Melatonin) 5 mg PO HS [facility] Last Admin: 07/06/19 22:57 Dose: 5 mg Ondansetron HCl (Zofran Injection) 4 mg IVPUSH Q6H PRN PRN Reason: NAUSEA AND/OR VOMITING Pantoprazole Sodium (Protonix -) 40 mg PO DAILY [facility] Last Admin: 07/06/19 09:47 Dose: 40 mg Ropinirole HCl (Requip -) 0.5 mg PO HS [facility] Last Admin: 07/06/19 22:58 Dose: 0.5 mg - Objective Vital Signs: Vital Signs Temperature 99.4 F 07/07/19 09:01 Pulse Rate 82 07/07/19 09:01 Respiratory Rate 18 07/07/19 09:01 Blood Pressure 157/67 07/07/19 09:01 O2 Sat by Pulse Oximetry (%) 98 07/06/19 21:00 Constitutional: Yes: No Distress, Calm Cardiovascular: Yes: S1, S2 Respiratory: Yes: Regular, CTA Bilaterally Gastrointestinal: Yes: Normal Bowel Sounds, Soft Musculoskeletal: Yes: WNL Extremities: Yes: Other Neurological: Yes: Alert, Oriented Psychiatric: Yes: Alert, Oriented Labs: CBC, BMP 07/06/19 06:20 07/06/19 06:20 INR, PTT INR 1.18 (0.83-1.09) H 06/30/19 15:15 Assessment/Plan Problem List - Problems (1) Anemia in chronic kidney disease Code(s): N18.9 - CHRONIC KIDNEY DISEASE, UNSPECIFIED; D63.1 - ANEMIA IN CHRONIC KIDNEY DISEASE (2) Diabetes Code(s): E11.9 - TYPE 2 DIABETES MELLITUS WITHOUT COMPLICATIONS (3) Hypokalemia Code(s): E87.6 - HYPOKALEMIA (4) Ischemic ulcer of both feet Code(s): L97.519 - NON-PRS CHRONIC ULCER OTH PRT RIGHT FOOT W UNSP SEVERITY; L97.529 - NON-PRESSURE CHRONIC ULCER OTH PRT LEFT FOOT W UNSP SEVERITY (5) YVES (acute kidney injury) Code(s): N17.9 - ACUTE KIDNEY FAILURE, UNSPECIFIED (6) Acute kidney injury superimposed on CKD Code(s): N17.9 - ACUTE KIDNEY FAILURE, UNSPECIFIED; N18.9 - CHRONIC KIDNEY DISEASE, UNSPECIFIED (7) Acute renal failure Code(s): N17.9 - ACUTE KIDNEY FAILURE, UNSPECIFIED (8) CKD (chronic kidney disease) requiring chronic dialysis Code(s): N18.6 - END STAGE RENAL DISEASE; Z99.2 - DEPENDENCE ON RENAL DIALYSIS (9) Diabetes mellitus, insulin dependent (IDDM), uncontrolled Code(s): E10.65 - TYPE 1 DIABETES MELLITUS WITH HYPERGLYCEMIA (10) ESRD (end stage renal disease) on dialysis Code(s): N18.6 - END STAGE RENAL DISEASE; Z99.2 - DEPENDENCE ON RENAL DIALYSIS b/l wounds on the legs plan continue current mgmt wound care rest as per the team
[2019-07-07] MEDS: FLUTICASONE PROP 0.05% 16 GM NASAL SPRAY NS SCH (09:32)
[2019-07-07] MEDS: PANTOPRAZOLE 40 MG TABLET PO SCH (09:33)
[2019-07-07] MEDS: CARVEDILOL 3.125 MG TABLET (FP) PO SCH (09:33)
[2019-07-07] MEDS: CLOPIDOGREL BISULFATE 75 MG TABLET (FP) PO SCH (09:33)
[2019-07-07] MEDS: COLLAGENASE CLOSTRIDIUM HIST. 30 GRAMS TUBE TP SCH (10:00)
[2019-07-07 11:29] LABS: BASO % 0.8 % (0-2.0); EOS % 3.8 % (0-4.5); HEMOGLOBIN 9.2 GM/dL (10.7-15.3); LYMPH % 12.3 % (8-40); MCH 31.8 pg (25.7-33.7); MCHC 32.8 g/dl (32.0-36.0); MEAN PLT VOLUME 7.4 fl (7.5-11.1); MONO % 6.1 % (3.8-10.2); PLATELET COUNT 230 K/MM3 (134-434); RBC 2.89 M/mm3 (3.60-5.2); RDW 18.8 % (11.6-15.6); WHITE BLOOD COUNT 10.2 K/mm3 (4.0-10.0)
--- NOTE | 2019-07-07 11:30 | PN ---
Progress Note (short form) - Note Progress Note: Reviewed xrays remotely At this time from my standpoint we will treat conservatively to allow time to see if angio has affect on a level of wound healing Can f/u as outpatient with my partner Dr. Copeland. Would recc to have HBO eval prior to d/c to see if she can be set up with HBO treatments and get regimen started before leaving if possible and patient is ammenable no acute changes on xrays and foot does not look acutely infected as discussed yesterday with patient will use santyl on heels and xeroform to the digits to keep areas moist ; will likely need heel debridments in the future but will see if angio has any affect continue strict heel offloading boots consistently f/u as outpatient with my partner Dr. Copeland in the wound care center next thursday for continued treatment.
[2019-07-07 12:07] LABS: ALBUMIN 2.6 g/dl (3.4-5.0); BILIRUBIN,TOTAL 1.1 mg/dL (0.2-1); CALCIUM 8.5 mg/dL (8.5-10.1); MAGNESIUM 1.8 mg/dL (1.8-2.4); POTASSIUM 4.3 mmol/L (3.5-5.1); TOT PROT 6.6 g/dl (6.4-8.2)
--- NOTE | 2019-07-07 12:46 | PN ---
Progress Note (short form) - Note Progress Note: Pt seen in bed. States she wants Dr. Ortega to take over case. Thanked me for previous care. +multiple wounds b/l feet, +necrotic heels b/l, +multiple forefoot wound left worse than right gangarene necrosis Wished patient well in her care and Dr. Heath Copeland and Dr. Tiago Ortega will be taking over her care starting today. I will no longer follow this patient as she has chosen Dr. Ortega plan of care s/p second opinion that I was unaware of. Dr. Copeland and Dr. Ortega are now taking over her care. Please contact them for orders on foot care going forward. Nurse Yoel present during brief conversation with patient.
--- NOTE | 2019-07-07 14:35 | DS ---
Physical Exam: SUBJECTIVE: Patient seen and examined. She denies any pain or discomfort. OBJECTIVE: Patient is a 59 year-old female with a past medical history of CAD, diastolic heart failure s/p AICD, COPD, Type II IDDM, ESRD on HD (M,W,F), RLS, and bilateral foot ulcers. Several weeks ago patient had a vascular study and was told she had decreased circulation in her lower extremities. She is now s/p LLE angio, CASH angioplasty 07/05/[address] Giraldo. She has been evaluated with record keeper and plan is for her to be seen as an outpatient at the wound care clinic for possible hyperbaric therapy as well as wound care per podiatry. She will be discharged home today. She will make a follow up appointment to the wound care clinic next week. Vital Signs Period Temp Pulse Resp BP Sys/Horowitz Pulse Ox Last 24 Hr 98.4 F-99.4 F 76-87 18-20 116-159/50-67 98 PHYSICAL EXAM GENERAL: The patient is awake, alert, and fully oriented, in no acute distress. HEAD: Normal with no signs of trauma. EYES: PERRL, extraocular movements intact, sclera anicteric, conjunctiva clear. No ptosis. ENT: Ears normal, nares patent, oropharynx clear without exudates, moist mucous membranes. NECK: Trachea midline, full range of motion, supple. LUNGS: Breath sounds equal, clear to auscultation bilaterally HEART: Regular rate and rhythm ABDOMEN: Soft, nontender, nondistended, normoactive bowel sounds EXTREMITIES: left foot, necrotic wounds first, second, third, fourth toes and area proximal to second and third toes; large necrotic heel wound; no erythema, warmth, swelling. right foot: necrotic wounds second and fourth toes; large necrotic heel wound; no erythema, warmth, swelling. she is s/p left lower ext angiogram/angioplasty on 07/05/2019 LABS Laboratory Results - last 24 hr 07/06/19 07/06/19 07/07/19 17:19 22:56 06:52 WBC RBC Hgb Hct MCV MCH MCHC RDW Plt Count MPV Absolute Neuts (auto) Neutrophils % Lymphocytes % Monocytes % Eosinophils % Basophils % Nucleated RBC % Sodium Potassium Chloride Carbon Dioxide Anion Gap BUN Creatinine Est GFR (CKD-EPI)AfAm Est GFR (CKD-EPI)NonAf POC Glucometer 170 178 121 Random Glucose Calcium Magnesium Total Bilirubin AST ALT Alkaline Phosphatase Total Protein Albumin 07/07/19 07/07/19 07/07/19 11:10 11:10 11:23 WBC 10.2 H RBC 2.89 L Hgb 9.2 L Hct 28.0 L MCV 97.0 H MCH 31.8 MCHC 32.8 RDW 18.8 H Plt Count 230 MPV 7.4 L Absolute Neuts (auto) 7.9 Neutrophils % 77.0 Lymphocytes % 12.3 Monocytes % 6.1 Eosinophils % 3.8 Basophils % 0.8 Nucleated RBC % 0 Sodium 136 Potassium 4.3 Chloride 99 Carbon Dioxide 28 Anion Gap 9 BUN 22.0 H Creatinine 4.0 H Est GFR (CKD-EPI)AfAm 13.36 Est GFR (CKD-EPI)NonAf 11.53 POC Glucometer 160 Random Glucose 171 H Calcium 8.5 Magnesium 1.8 Total Bilirubin 1.1 H AST 18 ALT 14 Alkaline Phosphatase 244 H Total Protein 6.6 Albumin 2.6 L HOSPITAL COURSE: Date of Admission:06/30/19 Date of Discharge: 07/07/19 Minutes to complete discharge: 60 Discharge Summary Problems reviewed: Yes Reason For Visit: ISCHEMIC ULCER OF BOTH FEET Current Active Problems Anemia in chronic kidney disease (Acute) DVT prophylaxis (Acute) Diabetes (Acute) Hypokalemia (Acute) Ischemic ulcer of both feet (Acute) Restless leg syndrome (Acute) Condition: Stable - Instructions Diet, Activity, Other Instructions: Mrs Hughes: You will be discharged home today. Please follow up with Dr. Copeland at the wound care clinic next Thursday. Please follow up with Dr. Pond for creation of AV fistula. Plavix 75mg once per day has been called into your pharmacy. This medication has been prescribed for you by Dr. Giraldo after your angioplasty. Thank you for allowing us to care for you. Referrals: Eliud Kennedy MD [Primary Care Provider] - Heath Copeland MD [Staff Physician] - Gilbert Pond MD [Staff Physician] - Disposition: HOME - Home Medications Comprehensive Discharge Medication List: Ambulatory Orders Fluticasone Prop 0.05% Nasal [Flonase -] 1 - 2 spray NS DAILY 02/03/19 Carvedilol [Coreg -] 3.125 mg PO BID tablet 04/04/19 Glimepiride [Amaryl -] 2 mg PO DAILY@0700 04/28/19 Collagenase Clostridium Hist. [Santyl -] 1 appful TP DAILY 05/19/19 Atorvastatin Calcium 80 mg PO DAILY 06/09/19 Pantoprazole Sodium 40 mg PO DAILY 06/09/19 Spironolactone 12.5 mg PO DAILY 06/09/19 Melatonin 5 mg PO DAILY 06/15/19 Ropinirole HCl [Requip -] 0.5 mg PO HS 06/15/19 Clopidogrel Bisulfate [Plavix] 75 mg PO DAILY #60 tablet 07/07/19 Problem List - Problems (1) Anemia in chronic kidney disease Code(s): N18.9 - CHRONIC KIDNEY DISEASE, UNSPECIFIED; D63.1 - ANEMIA IN CHRONIC KIDNEY DISEASE (2) Diabetes Code(s): E11.9 - TYPE 2 DIABETES MELLITUS WITHOUT COMPLICATIONS (3) Hypokalemia Code(s): E87.6 - HYPOKALEMIA (4) Ischemic ulcer of both feet Code(s): L97.519 - NON-PRS CHRONIC ULCER OTH PRT RIGHT FOOT W UNSP SEVERITY; L97.529 - NON-PRESSURE CHRONIC ULCER OTH PRT LEFT FOOT W UNSP SEVERITY (5) YVES (acute kidney injury) Code(s): N17.9 - ACUTE KIDNEY FAILURE, UNSPECIFIED (6) Acute kidney injury superimposed on CKD Code(s): N17.9 - ACUTE KIDNEY FAILURE, UNSPECIFIED; N18.9 - CHRONIC KIDNEY DISEASE, UNSPECIFIED (7) Acute renal failure Code(s): N17.9 - ACUTE KIDNEY FAILURE, UNSPECIFIED (8) CKD (chronic kidney disease) requiring chronic dialysis Code(s): N18.6 - END STAGE RENAL DISEASE; Z99.2 - DEPENDENCE ON RENAL DIALYSIS (9) Diabetes mellitus, insulin dependent (IDDM), uncontrolled Code(s): E10.65 - TYPE 1 DIABETES MELLITUS WITH HYPERGLYCEMIA (10) ESRD (end stage renal disease) on dialysis Code(s): N18.6 - END STAGE RENAL DISEASE; Z99.2 - DEPENDENCE ON RENAL DIALYSIS (11) DVT prophylaxis Code(s): Z29.9 - ENCOUNTER FOR PROPHYLACTIC MEASURES, UNSPECIFIED This patient is new to me today: No Emergency Visit: Yes ED Registration Date: 06/30/19 Care time: The patient presented to the Emergency Department on the above date and was hospitalized for further evaluation of their emergent condition. Critical Care patient: No - Discharge Referral [facility]erred to [facility] No
--- NOTE | 2019-07-07 15:37 | PN ---
Progress Note, Physician History of Present Illness: Pt seen and examined at bedside. She is awake and alert. She denies shortness of breath. - Current Medication List Current Medications: Active Medications Acetaminophen (Tylenol -) 650 mg PO Q6H PRN PRN Reason: MILD PAIN Last Admin: 07/06/19 09:47 Dose: 650 mg Atorvastatin Calcium (Lipitor -) 80 mg PO HS [facility] Last Admin: 07/06/19 22:57 Dose: Not Given Carvedilol (Coreg -) 3.125 mg PO BID [facility] Last Admin: 07/07/19 09:33 Dose: 3.125 mg Clopidogrel Bisulfate (Plavix -) 75 mg PO DAILY [facility] Last Admin: 07/07/19 09:33 Dose: 75 mg Collagenase (Santyl -) 1 applic TP DAILY [facility]; Protocol Last Admin: 07/07/19 10:00 Dose: 1 applic Fentanyl (Sublimaze Injection -) 25 mcg IVPUSH [id number] PRN PRN Reason: PAIN-PACU ORDER X 4 DOSES ONLY Fluticasone Propionate (Flonase -) 1 spray NS DAILY [facility] Last Admin: 07/07/19 09:32 Dose: 1 spray Heparin Sodium (Porcine) (Heparin -) 5,000 unit SQ TID [facility] Last Admin: 07/07/19 13:50 Dose: 5,000 unit Insulin Aspart (Novolog Vial Sliding Scale -) 1 vial SQ ACHS [facility]; Protocol Last Admin: 07/07/19 11:26 Dose: 2 units Loratadine (Claritin -) 10 mg PO [facility] Melatonin (Melatonin) 5 mg PO [facility] Last Admin: 07/06/19 22:57 Dose: 5 mg Ondansetron HCl (Zofran Injection) 4 mg IVPUSH Q6H PRN PRN Reason: NAUSEA AND/OR VOMITING Pantoprazole Sodium (Protonix -) 40 mg PO DAILY [facility] Last Admin: 07/07/19 09:33 Dose: 40 mg Ropinirole HCl (Requip -) 0.5 mg PO HS [facility] Last Admin: 07/06/19 22:58 Dose: 0.5 mg - Objective Vital Signs: Vital Signs Temperature 99.4 F 07/07/19 09:01 Pulse Rate 82 07/07/19 09:01 Respiratory Rate 18 07/07/19 09:01 Blood Pressure 157/67 07/07/19 09:01 O2 Sat by Pulse Oximetry (%) 98 07/06/19 21:00 Constitutional: Yes: Calm Eyes: Yes: Conjunctiva Clear HENT: Yes: Atraumatic Cardiovascular: Yes: S1, S2 Respiratory: Yes: CTA Bilaterally Gastrointestinal: Yes: Soft Genitourinary: Yes: WNL Musculoskeletal: Yes: WNL Edema: No Wound/Incision: Yes: Dressing Dry and Intact Neurological: Yes: Oriented Psychiatric: Yes: Oriented Labs: CBC, BMP 07/07/19 11:10 07/07/19 11:10 INR, PTT INR 1.18 (0.83-1.09) H 06/30/19 15:15 Assessment/Plan Current Medications Generic Name Dose Route Start Last Admin Trade Name Freq PRN Reason Stop Dose Admin Acetaminophen 650 mg 07/05/19 17:19 07/06/19 09:47 Tylenol - PO 650 mg Q6H PRN Administration MILD PAIN Atorvastatin Calcium 80 mg 07/05/19 22:00 07/06/19 22:57 Lipitor - PO Not Given HS DEANNA Carvedilol 3.125 mg 07/05/19 22:00 07/07/19 09:33 Coreg - PO 3.125 mg BID DEANNA Administration Clopidogrel Bisulfate 75 mg 07/05/19 17:45 07/07/19 09:33 Plavix - PO 75 mg DAILY DEANNA Administration Collagenase 1 applic 07/06/19 10:00 07/07/19 10:00 Santyl - TP 1 applic DAILY DEANNA Administration Protocol Fentanyl 25 mcg 07/05/19 17:09 Sublimaze Injection - IVPUSH [id number] PRN PAIN-PACU ORDER X 4 DOSES ONLY Fluticasone Propionate 1 spray 07/06/19 10:00 07/07/19 09:32 Flonase - NS 1 spray DAILY DEANNA Administration Heparin Sodium (Porcine) 5,000 unit 07/05/19 22:00 07/07/19 13:50 Heparin - SQ 5,000 unit TID DEANNA Administration Insulin Aspart 1 vial 07/05/19 22:00 07/07/19 11:26 Novolog Vial Sliding Scale - SQ 2 units ACHS DEANNA Administration Protocol Loratadine 10 mg 07/07/19 22:00 Claritin - PO HS DEANNA Melatonin 5 mg 07/05/19 22:00 07/06/19 22:57 Melatonin PO 5 mg HS DEANNA Administration Ondansetron HCl 4 mg 07/05/19 17:09 Zofran Injection IVPUSH Q6H PRN NAUSEA AND/OR VOMITING Pantoprazole Sodium 40 mg 07/06/19 10:00 07/07/19 09:33 Protonix - PO 40 mg DAILY DEANNA Administration Ropinirole HCl 0.5 mg 07/05/19 22:00 07/06/19 22:58 Requip - PO 0.5 mg HS DEANNA Administration Impression 1. ESRD 2. CHF 3. DM 4. HTN 5. hyperlipidemia 6. nephrotic range proteinuria 7. CAD 8. s/p ct angio 9. lower ext wounds/gangrene Plan - next HD tomorrow - she has HD set up as outpt - she will get vein mapping next week as outpt - wound care - cont renal diet
--- NOTE | 2019-07-07 20:07 | PN ---
Progress Note (short form) - Note Progress Note: 59-year-old female with history of coronary artery disease, status post myocardial infarction, status post coronary artery bypass grafting, severe left ventricular systolic dysfunction, congestive heart failure, ICD for primary prophylaxis, diabetes mellitus, end-stage renal disease, peripheral arterial disease with gangrenous changes involving both feet,status post percutaneous angioplasty left lower extremity arterial system, hypercholesterolemia and poor dietary compliance. Patient was seen earlier in the day and was resting comfortably,no chest pain or discomfort was reported, earlier had mild dyspnea which she attributed to nasal congestion as she was not receiving her medications for allergy. Symptoms abated spontaneously. Vital signs: Blood pressure 157/67 mm of Mercury. Pulse is 82 bpm and regular. Respirations were 18/min. Temperature was 99.4F. Neck: Supple, no jugular venous distention, carotids were 2+, upstrokes were normal, no bruits were appreciated there is no thyromegaly. Heart and PMI was in the fifth intercostal space,no heaves or thrills were appreciated, S1 was normal S2 was split, grade 1/6 apical systolic murmur, no diastolic murmur or gallops were heard. Lungs: Clear on auscultation. Abdomen: Soft, nontender, no hepatosplenomegaly or palpable masses were felt. Extremities: No calf tenderness or dependent edema, both feet were bandaged there were gangrenous and is changes involving the toes of the left foot. Lab data: CBC: WBC 10,200. Hemoglobin 9 g per DL. Electrolytes: Sodium 136, potassium 4.3, chloride 99, CO2 28 mmol/L. BUN 22.0, creatinine 4.0 mg per DL. Next Impression: 1. Peripheral arterial disease, status post percutaneous angioplasty for gangrenous changing involving the left lower extremity. 2. Coronary artery disease, status post myocardial infarction, status post CABG. 3. Severe left ventricular systolic dysfunction. 4. Status post ICD for primary prophylaxis. 5. Diabetes mellitus with multisystem involvement. 6. End-stage renal diseaseHD. 7. Hypercholesterolemia. Recommendation: 1. Outpatient follow-up. 2. Patient is aware of her dietary restrictions and curtailing sodium intake. 3. ICD interrogation according to protocol. Prognosis: Guarded Los Fernández MD; [facility]
[2019-07-07] MEDS ORDERED: LORATADINE 10 MG TABLET PO SCH (22:00)
--- NOTE | 2019-07-13 18:28 | OP ---
DATE OF OPERATION: 07/05/2019 PROCEDURE PERFORMED: Aortogram, left lower extremity angiogram, anterior tibial artery angioplasty. SURGEON: Carlos Enrique Finch DO ANESTHESIA: Fractional. PREOPERATIVE DIAGNOSIS: Left foot gangrene. POSTOPERATIVE DIAGNOSIS: Left foot gangrene. INDICATIONS: Patient is a 59-year-old female who came into the hospital with left foot gangrene. It was decided that she would need an angiogram of her foot. DESCRIPTION OF PROCEDURE: The patient was consented for the procedure, understanding all risks, benefits and alternatives and then brought to the operating room. Once in the operating room, she was laid on the operating table in the supine manner. The areas of the left and left groins were prepped and draped in a sterile surgical manner. We then injected 10 mL of lidocaine 1% over the right common femoral artery. We then took our micropuncture needle and punctured the right common femoral artery. Micropuncture wire was inserted and an additional 5-Pashto sheath was inserted. We then placed a 0.035 floppy guidewire up into the aorta, followed by an Omni Flush catheter. We then shot an aortogram via hand injection, showing that aorta and iliac arteries were without any disease. We then took our 0.035 floppy guidewire and went up and over to the left common femoral artery and our Omni Flush catheter followed. We then shot an angiogram of the left lower extremity, showing that the common femoral artery, the profunda, the SFA and the popliteal artery were all patent, but the patient has 80% to 90% stenosis along the takeoff and after the takeoff of the anterior tibial artery. At this point we placed a 0.035 stiff guidewire into the SFA. We removed our Omni Flush catheter. A 6 x 45 crossover sheath was placed, and 5000 units of IV heparin was placed. We then got our 0.035 stiff guidewire down into the popliteal artery, followed by a Quick-Cross catheter. We selectively cannulated the anterior tibial artery and a wire was placed into the distal anterior tibial artery. We were then able to exchange the wire for an 0.014 wire. We then went ahead and used a 2.5 x 200 Ultraverse balloon and performed angioplasty of the entire anterior tibial artery from the mid-calf up all the way to its origin. Completion angiogram now showed that the anterior tibial artery was patent. There was no recoil. There was good brisk flow going down into the forefoot. The patient does have small vessel disease in the foot. However, there is an AT coming down into the proximal forefoot. At this point no more intervention was needed. There were no other areas of stenosis that needed to be fixed. The patient's main runoff into the foot is the peroneal artery and the anterior tibial artery. At this point we brought our sheath up and over and out. A StarClose device was successfully deployed in the right common femoral artery. Pressure was held for 5 minutes. Afterwards there was no bleeding. The area was wet and dried, and Dermabond was placed. The patient tolerated the procedure with no complications. The patient was transferred to the ICU in stable condition. CARLOS ENRIQUE FINCH DO [id number]
== END 2019-07-07 18:10 | disposition home or self-care (01) | DRG 252 ==
LOC: JER 13:40 → JERBED 15:38 → J7W 20:32
PROVIDERS: ADMIT Internal Medicine; ATTEND Nurse Practitioner Family
PROC: B41DZZZ Fluoroscopy of Aorta and Bilateral Lower Extremity Arteries (ICD-10-PCS; 2019-07-05)
PROC: 047Q3ZZ Dilation of Left Anterior Tibial Artery, Percutaneous Approach (ICD-10-PCS; principal; 2019-07-05 17:45)
PROC: 5A1D70Z Performance of Urinary Filtration, Intermittent, Less than 6 Hours Per Day (ICD-10-PCS; 2019-07-06)
DX: E11.52 Type 2 diabetes mellitus with diabetic peripheral angiopathy with gangrene (principal); N18.6 End stage renal disease; E43 Unspecified severe protein-calorie malnutrition; I50.22 Chronic systolic (congestive) heart failure; I70.261 Atherosclerosis of native arteries of extremities with gangrene, right leg; I70.262 Atherosclerosis of native arteries of extremities with gangrene, left leg; N17.9 Acute kidney failure, unspecified; I13.2 Hypertensive heart and chronic kidney disease with heart failure and with stage 5 chronic kidney disease, or end stage renal disease; E11.621 Type 2 diabetes mellitus with foot ulcer; I25.10 Atherosclerotic heart disease of native coronary artery without angina pectoris; D63.1 Anemia in chronic kidney disease; L97.511 Non-pressure chronic ulcer of other part of right foot limited to breakdown of skin; L97.521 Non-pressure chronic ulcer of other part of left foot limited to breakdown of skin; Z95.1 Presence of aortocoronary bypass graft; Z99.2 Dependence on renal dialysis; G25.81 Restless legs syndrome
CPT/HCPCS: 36415; 73630-TC-LT; 73630-TC-RT-FY; 75635-TC; 76000-TC-FY; 80048; 80053; 81003; 82962; 83735; 84100; 85025; 85027; 85610; 85730; 86850; 86900; 86901; 87040; 87086; 94010; 94760; 97597; 99285-25; C1887; G0463-25; J0885; J1644; Q9967

== ENCOUNTER 2019-11-24 06:12 | Day surgery (SDC) | payer OTHER ==
[2019-11-22 18:28] VITALS: BMI 23.8
[2019-11-24 07:04] LABS: POTASSIUM 4.2 mmol/L (3.5-5.1)
[2019-11-24] MEDS ORDERED: POVIDONE-IODINE OINTMENT 10% - 28.4 GM TUBE ONE (07:10)
[2019-11-24] MEDS ORDERED: LIDOCAINE HCL 1%, 10 MG/ML (20ML VIAL) ONE ×2 (07:10→08:43)
[2019-11-24] MEDS ORDERED: HEPARIN NA (PORCINE) 5,000 UNITS/ML 1ML VIAL ONE (07:10)
--- NOTE | 2019-11-24 07:59 | HP ---
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 Cardiovascular: Yes: CAD Pulmonary: Yes: COPD Renal/: Yes: Renal Failure, Hemodialysis Endocrine: Yes: Diabetes Mellitus - Past Surgical History Past Surgical History: Yes: Arthrosocopy (Rt knee surgery in her 20s secondary to chrondomalacia), CABG - Smoking History Smoking history: Former smoker Have you smoked in the past 12 months: No Aproximately how many cigarettes per day: 0 If you are a former smoker, when did you quit?: 1997 - Alcohol/Substance Use Hx Alcohol Use: No History of Substance Use: reports: None - Social History ADL: Independent 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 Home Medications - Allergies Allergies/Adverse Reactions: Allergies Allergy/AdvReac Type Severity Reaction Status Date / Time Penicillins Allergy Severe RESPIRATORY Verified 11/24/19 07:14 DISTRESS prednisone AdvReac Severe disorientat Verified 11/24/19 07:14 ion gluten AdvReac Verified 11/24/19 07:14 morphine AdvReac disorientat Verified 11/24/19 07:14 ion BETA BLOCKERS Allergy Severe SEVERE Uncoded 11/24/19 07:14 HYPOTENSION - Home Medications Home Medications: Ambulatory Orders Fluticasone Prop 0.05% Nasal [Flonase -] 1 - 2 spray NS DAILY 02/03/19 Atorvastatin Calcium 80 mg PO HS 06/09/19 Melatonin 5 mg PO PRN 06/15/19 Clopidogrel Bisulfate [Plavix] 75 mg PO DAILY #60 tablet 07/07/19 Carvedilol [Coreg -] 3.125 mg PO HS 07/26/19 Aspirin 81 mg PO DAILY 10/07/19 Cetirizine HCl [Zyrtec -] 10 mg PO HS 10/07/19 Pantoprazole Sodium 40 mg PO DAILY 10/07/19 Ropinirole HCl 0.5 mg PO HS 10/07/19 Insulin Detemir [Levemir Flextouch] 8 unit SQ DAILY #2 insuln.pen 10/09/19 Insulin Sliding Scale [Novolog Vial Sliding Scale -] 1 units SQ TIDAC #2 pen 10/09/19 Review of Systems - Review of Systems Constitutional: reports: No Symptoms Eyes: reports: No Symptoms HENT: reports: No Symptoms Neck: reports: No Symptoms Cardiovascular: reports: No Symptoms Respiratory: reports: No Symptoms Gastrointestinal: reports: No Symptoms Genitourinary: reports: No Symptoms Breasts: reports: No Symptoms Reported Musculoskeletal: reports: No Symptoms Integumentary: reports: No Symptoms Neurological: reports: No Symptoms Endocrine: reports: No Symptoms Hematology/Lymphatic: reports: No Symptoms Psychiatric: reports: No Symptoms Physical Examination Vital Signs: Vital Signs Temperature 97.7 F 11/24/19 07:11 Pulse Rate 66 11/24/19 07:11 Respiratory Rate 20 11/24/19 07:11 Blood Pressure 129/53 L 11/24/19 07:11 O2 Sat by Pulse Oximetry (%) 96 11/24/19 07:05 Constitutional: Yes: Well Nourished, No Distress, Calm Eyes: Yes: WNL, Conjunctiva Clear, EOM Intact HENT: Yes: WNL, Atraumatic, Normocephalic Neck: Yes: WNL, Supple, Trachea Midline Cardiovascular: Yes: WNL, Regular Rate and Rhythm Respiratory: Yes: WNL, Regular, CTA Bilaterally Gastrointestinal: Yes: WNL, Normal Bowel Sounds Musculoskeletal: Yes: WNL Extremities: Yes: WNL Edema: No Integumentary: Yes: WNL Neurological: Yes: WNL, Alert, Oriented ...Motor Strength: WNL Psychiatric: Yes: WNL Labs: CBC, BMP 11/24/19 06:22 Problem List - Problems (1) ESRD (end stage renal disease) on dialysis Assessment/Plan: insertion of right avg today Carlos Enrique Giraldo DO Problems reviewed: Yes Code(s): N18.6 - END STAGE RENAL DISEASE; Z99.2 - DEPENDENCE ON RENAL DIALYSIS
[2019-11-24] MEDS ORDERED: MIDAZOLAM HCL 2 MG/2 ML SINGLE DOSE VIAL ONE (08:09)
[2019-11-24] MEDS ORDERED: PROPOFOL 20 ML ONE (08:30)
[2019-11-24] MEDS ORDERED: LIDOCAINE HCL 1%, 10 MG/ML (20ML VIAL) NR ONE (08:34)
[2019-11-24] MEDS ORDERED: HEPARIN NA (PORCINE) 5,000 UNITS/ML 1ML VIAL SQ ONE (08:34)
[2019-11-24] MEDS ORDERED: KETAMINE HCL 200 MG/20 ML VIAL ONE (08:40)
[2019-11-24] MEDS ORDERED: ONDANSETRON 4 MG/2 ML VIAL IVPUSH PRN (10:53)
--- NOTE | 2019-11-24 10:53 | OP ---
Operative Note - Note: Operative Date: 11/24/19 Pre-Operative Diagnosis: ESRD Operation: Insertion of right accuseal AVG Post-Operative Diagnosis: Same as Pre-op Surgeon: Carlos Enrique Giraldo Salvage Cutter: Robert Vergara Anesthesiologist/ARCHITECTURAL COATING FINISHER: Darwin Lan Anesthesia: Fractional Estimated Blood Loss (mls): 75 Operative Report Dictated: Yes
[2019-11-24] MEDS ORDERED: ACETAMINOPHEN 1000 MG/100 ML VIAL (NON FORMULARY) IVPB ONE (10:54)
[2019-11-24] MEDS ORDERED: ACETAMINOPHEN INJECTION 100 ML IVPB ONE (11:03)
--- NOTE | 2019-11-24 11:14 | SURG ---
Surgery Pattern Drum Maker Note Pattern Drum Maker: Robert Vergara PA-C Date of Service: 11/24/19 Diagnosis: ESRD Procedure: Right arm AV graft creation I was present for the entirety of the operative procedure. For further detail, please refer to operative report. Visit type - Case Type Case Type: Scheduled - Emergency Emergency Visit: No - New patient This patient is new to me today: Yes Date on this admission: 11/24/19 - Critical Care Critical Care patient: No
[2019-11-24 11:34] VITALS: TEMP 97.8
[2019-11-24 12:48] VITALS: BP 121/50; PULSE 74
--- NOTE | 2019-12-01 13:54 | OP ---
DATE OF OPERATION: 11/24/2019 PREOPERATIVE DIAGNOSIS: End stage renal disease. POSTOPERATIVE DIAGNOSIS: End stage renal disease. PROCEDURE: Insertion of right arteriovenous graft. SURGEON: Carlos Enrique Finch MD ANESTHESIA: Fractional. ESTIMATED BLOOD LOSS: 50 mL. INDICATIONS: The patient is a 59-year-old female that has end stage renal disease and needs permanent dialysis access. Preoperative vein mapping showed she has no veins in her right upper extremity, on her left side she has a defibrillator on her left chest. It was decided that we would place an ACUSEAL graft so that the graft could be utilized in 48 hours. Patient was cleared from a cardiology and medical standpoint. Patient then came into ambulatory surgery and was COVID negative. Patient was consented for the procedure understanding all risks, benefits, and alternatives. DESCRIPTION OF THE PROCEDURE: Patient was then taken to the operating room. Once in the operating room she was laid on the operating room table in the supine manner. The entire arm was prepped and draped in a sterile surgical manner. Using ultrasound guidance, we were able to juan our axillary vein and it was marked with a skin marker and our brachial artery above the antecubital fossa. We then went ahead and injected 10 mL of lidocaine 1% over the axillary vein. We then took a number 15 blade and made a 5-cm incision. Bovie electrocautery was used to secure hemostasis and we were able to go through all the subcutaneous tissue. Once we got down to the axillary vein, the axillary vein was dissected anteriorly and posteriorly and vessel loops were placed around it. We then injected 10 mL of lidocaine 1% over the antecubital fossa over the brachial artery. We then made a 4-cm incision using a 15 blade. Bovie electrocautery was used to control hemostasis. We were able to use Bovie electrocautery and get down through all subcutaneous tissue and get down to the fascia. Once the fascia was opened, we dissected out our brachial artery anteriorly and posteriorly and vessel loops were placed. At this point we took our 4 x 7 ACUSEAL graft and we tunneled it from the venous to the arterial portion. We beveled the arterial portion so that it could better fit in. Then 5000 units of IV heparin were then administered to the patient. After 3 minutes, we had distal and proximal control on the artery. Using a 15 blade, we made an arteriotomy extending it to 7 mm. The artery was severely diseased and felt it was very calcified and it was a rock. At this point we used 6-0 Prolene stay sutures. We then used 6-0 Prolene double arm, went outside-in on the graft and inside-out on the artery and ran the stitch around to form an anastomosis between the artery and the graft. Once completed, we opened the distal artery first, then the proximal artery, and there was good flow in our AV graft and that was irrigated and clamped. We then went ahead and cut the graft to size and beveled it to 9 mm. We got distal and proximal control on our vein. We then used a 15 blade and made a venotomy extending it to 9 mm using Ortiz scissors. We then placed 6-0 Prolene stay sutures on the vein. We then used a 6-0 Prolene double arm, went outside-in on the graft and inside-out on the vein and ran this suture around to form an anastomosis between the vein and the graft. Once completed, we opened the distal vein first, then the proximal vein. We then unclamped our graft and there was good flow in our AV graft. We were able to feel a good thrill in our AV graft and we were able to hear a good Dopplerable signal in our AV graft and in the distal vein. At this point the wounds were well irrigated. Vicryl 3-0 was used in the subcutaneous tissue to reapproximate it in an interrupted manner for both incisions. The skin was closed with skin sara for both incisions. Once completed, 4 x 4 and Tegaderms were placed. Patient tolerated the procedure with no complications. Patient was transferred to the PACU in stable condition. CARLOS ENRIQUE FINCH DO [id number]
== END 2019-11-24 13:00 | disposition home or self-care (01) ==
LOC: JASU-SURG 06:12
PROVIDERS: ATTEND Surgery Vascular Surgery
PROC: 03170JD Bypass Right Brachial Artery to Upper Arm Vein with Synthetic Substitute, Open Approach (ICD-10-PCS; principal; 2019-11-24 08:00)
DX: I12.0 Hypertensive chronic kidney disease with stage 5 chronic kidney disease or end stage renal disease (principal); E11.22 Type 2 diabetes mellitus with diabetic chronic kidney disease; N18.6 End stage renal disease; Z99.2 Dependence on renal dialysis; Z79.4 Long term (current) use of insulin
CPT/HCPCS: 36415; 82947; 84132; 94760; J0131; J1644

== ENCOUNTER 2019-12-04 13:15 | Inpatient (IN) | payer OTHER ==
--- NOTE | 2019-12-04 13:24 | PDOC ---
Rapid Medical Evaluation Time Seen by Provider: 12/04/19 13:22 Medical Evaluation: Allergies Allergy/AdvReac Type Severity Reaction Status Date / Time Penicillins Allergy Severe RESPIRATORY Verified 11/24/19 07:14 DISTRESS prednisone AdvReac Severe disorientat Verified 11/24/19 07:14 ion gluten AdvReac Verified 11/24/19 07:14 morphine AdvReac disorientat Verified 11/24/19 07:14 ion BETA BLOCKERS Allergy Severe SEVERE Uncoded 11/24/19 07:14 HYPOTENSION 12/04/19 13:22 59 year old female pmhx HTN DM ESRD (HD MWF) chronic wound on left foot with maggots. PE: foot wrapped Plan: Labs, BC, IV abx (not ordered by RME) Likely admission
--- NOTE | 2019-12-04 13:45 | PDOC ---
History of Present Illness - General Chief Complaint: Wound Stated Complaint: WOUND Time Seen by Provider: 12/04/19 13:22 - History of Present Illness Initial Comments: 59 YOF h/o kidney failure, diabetes, PAD, and multiple cardiac comorbidities presents to the ED for evaluation of a left foot wound. Patient reports that the wound originated early in 2019, has been evaluated multiple times and that she was receiving wound care. She explains that she has not received wound care in the last 2 weeks because she recently underwent a graft in her right arm to subserve dialysis and the appointment for the procedure prevented her from attending wound care. In the past week her wound has become necrotic with increased drainage. She removed her bandage this morning and found that the wound was infested with maggots. She decided to present to the ED for evaluation of her wound. She underwent amputation of the second digit on her right foot recently however does not describe any issue with this foot or her surgical wound. She denies pain in the foot or leg. She denies N/V/D, fever or chills, CP or SOB. Constitutional: No Weight Change, No Fever, No Chills, No Night Sweats, No Fatigue, No Malaise ENT/Mouth: No Hearing Changes, No Ear Pain, No Nasal Congestion, No Sinus Pain, No Hoarseness, No sore throat, No Rhinorrhea, No Swallowing Difficulty Eyes: No Eye Pain, No Swelling, No Redness, No Foreign Body, No Discharge, No Vision Changes Cardiovascular: Chronic SOB related to heart disease, No Chest Pain, No PND, No Dyspnea on Exertion, No Orthopnea, No Claudication, No Edema, No Palpitations Respiratory: No Cough, No Sputum, No Wheezing, No Smoke Exposure, No Dyspnea Gastrointestinal: No Nausea, No Vomiting, No Diarrhea, No Constipation, No Pain, No Heartburn, No Anorexia, No Dysphagia, No Hematochezia, No Melena, No Flatulence, No Jaundice Genitourinary: No Dysmenorrhea, No DUB, No Dyspareunia, No Dysuria, No Urinary Frequency, No Hematuria, No Urinary Incontinence, No Urgency, No Flank Pain, No Urinary Flow Changes, No Hesitancy Musculoskeletal: No Arthralgias, No Myalgias, No Joint Swelling, No Joint Stiffness, No Back Pain, No Neck Pain, Skin: Wounds on left and right foot, No Pruritis, No Hair Changes, No Breast/Skin Changes, No Nipple Discharge Neuro: No Weakness, No Numbness, No Paresthesias, No Loss of Consciousness, No Syncope, No Dizziness, No Headache, No Coordination Changes, No Recent Falls Psych: No Anxiety/Panic, No Depression, No Insomnia, No Personality Changes, No Delusions, No Rumination, No SI/HI/AH/VH, No Social Issues, No Memory Changes, No Violence/Abuse Hx., No Eating Concerns Heme/Lymph: No Bruising, No Bleeding, No Transfusions History, No Lymphadenopa thy Endocrine: No Polyuria, No Polydipsia, No Temperature Intolerance 12/04/19 15:09 Past History - Medical History Allergies/Adverse Reactions: Allergies Allergy/AdvReac Type Severity Reaction Status Date / Time Penicillins Allergy Severe RESPIRATORY Verified 11/24/19 07:14 DISTRESS prednisone AdvReac Severe disorientat Verified 11/24/19 07:14 ion gluten AdvReac Verified 11/24/19 07:14 morphine AdvReac disorientat Verified 11/24/19 07:14 ion BETA BLOCKERS Allergy Severe SEVERE Uncoded 11/24/19 07:14 HYPOTENSION Home Medications: Ambulatory Orders Fluticasone Prop 0.05% Nasal [Flonase -] 1 - 2 spray NS DAILY 02/03/19 Atorvastatin Calcium 80 mg PO HS 06/09/19 Melatonin 5 mg PO PRN 06/15/19 Clopidogrel Bisulfate [Plavix] 75 mg PO DAILY #60 tablet 07/07/19 Carvedilol [Coreg -] 3.125 mg PO HS 07/26/19 Aspirin 81 mg PO DAILY 10/07/19 Cetirizine HCl [Zyrtec -] 10 mg PO HS 10/07/19 Pantoprazole Sodium 40 mg PO DAILY 10/07/19 Ropinirole HCl 0.5 mg PO HS 10/07/19 Insulin Detemir [Levemir Flextouch] 8 unit SQ DAILY #2 insuln.pen 10/09/19 Insulin Sliding Scale [Novolog Vial Sliding Scale -] 1 units SQ TIDAC #2 pen 10/09/19 Anemia: No Asthma: No Cancer: No Cardiac Disorders: Yes (CAD, AICD, CHF) CVA: No COPD: No CHF: Yes Dementia: No Diabetes: Yes (x4 yrs ago) Dialysis: Yes GI Disorders: No Disorders: Yes (ESRD) HTN: Yes Hypercholesterolemia: Yes Liver Disease: No Seizures: No Thyroid Disease: No Other medical history: left av graft - Surgical History Abdominal Surgery: No Appendectomy: No Cardiac Surgery: Yes (CABG 02/2015) Cholecystectomy: No Lung Surgery: No Neurologic Surgery: No Orthopedic Surgery: No - Immunization History Immunization Up to Date: No - Psycho-Social/Smoking History Smoking Status: No Smoking History: Former smoker Have you smoked in the past 12 months: No Number of Cigarettes Smoked Daily: 0 If you are a former smoker, when did you quit?: 1997 Information on smoking cessation initiated: No - Substance Abuse Hx (Audit-C & DAST Scrn) How often the patient has a drink containing alcohol: Never Score: In Men: 4 or > Positive; In Women: 3 or > Positive: 0 Screen Result (Pos requires Nsg. Audit-10AR): Negative Review of Systems - Review of Systems Constitutional: Yes: Weight Stable, Other (denies fever or chills) Respiratory: Yes: Other *Physical Exam - Vital Signs Last Vital Signs Temp Pulse Resp BP Pulse Ox 98.1 F 90 18 0/0 L 100 12/04/19 13:23 12/04/19 13:23 12/04/19 13:23 12/04/19 13:23 12/04/19 13:23 - Physical Exam General Appearance: Yes: Nourished, Mild Distress HEENT: positive: EOMI, FABY, Normal ENT Inspection, Normal Voice Neck: positive: Trachea midline, Normal Thyroid Respiratory/Chest: positive: Lungs Clear, Normal Breath Sounds, Respiratory Distress Cardiovascular: positive: Regular Rhythm, Regular Rate, S1, S2 Gastrointestinal/Abdominal: positive: Normal Bowel Sounds, Flat, Soft Musculoskeletal: positive: Normal Inspection Extremity: positive: Other (Exam of left leg and foot reveals erythematous streaking on medial aspect of left lower leg extending from foot. Dorsum of foot is necrotic, with 5x5x2 cm wound with drainage and maggots. Wound on left foot has erythematous borders. Skin on heel of left foot is dry and black in color. Right foot has post operative wound at site of second digit which has been amputated, this wound has minor drainage, skin over heel of right foot is dry and black.) Integumentary: positive: Normal Color Neurologic: positive: Fully Oriented, Alert, Normal Mood/Affect ED Treatment Course - LABORATORY CBC & Chemistry Diagram: 12/04/19 13:55 12/04/19 13:55 Medical Decision Making - Medical Decision Making 59 YOF h/o kidney failure, diabetes, PAD, and multiple cardiac comorbidities presents to the ED for evaluation of a left foot wound. Patient reports that the wound originated early in 2019, has been evaluated multiple times and that she was receiving wound care. She explains that she has not received wound care in the last 2 weeks because she recently underwent a graft in her right arm to subserve dialysis and the appointment for the procedure prevented her from attending wound care. In the past week her wound has become necrotic with increased drainage. She removed her bandage this morning and found that the wound was infested with maggots. She decided to present to the ED for evaluation of her wound. She underwent amputation of the second digit on her right foot recently however does not describe any issue with this foot or her surgical wound. She denies pain in the foot or leg. She denies N/V/D, fever or chills, CP or SOB. Patients vitals were stable on arrival. Exam of left leg and foot reveals erythematous streaking on medial aspect of left lower leg extending from foot. Dorsum of foot is necrotic, with 5x5x2 cm wound with drainage and maggots. Wound on left foot has erythematous borders. Skin on heel of left foot is dry and black in color. Right foot has post operative wound at site of second digit which has been amputated, this wound has minor drainage, skin over heel of right foot is dry and black. ddx includes but is not limited to: cellulitis, wet gangrene, osteomyelitis. plan: sepsis work up, IV vancomycin and levofloxacin. Tylenol 1000 for pain, Xray left and right foot reassess: labs and imaging wnl. dispo: admit to medicine for surgical management of left foot. 12/04/19 22:56 12/04/19 22:57 Discharge - Discharge Information Problems reviewed: Yes Clinical Impression/Diagnosis: Lymphangitis, Infestation by maggots Cellulitis Qualifiers: Site of cellulitis: extremity Site of cellulitis of extremity: lower extremity Laterality: unspecified laterality Qualified Code(s): L03.119 - Cellulitis of unspecified part of limb Diabetic foot ulcer Qualifiers: Diabetic foot ulcer location: unspecified part of foot Diabetes mellitus type: other specified (including ISA) Laterality: unspecified laterality Non-pressure ulcer stage: unspecified non-pressure ulcer stage Qualified Code(s): E13.621 - Other specified diabetes mellitus with foot ulcer Condition: Guarded - Follow up/Referral - Patient Discharge Instructions - Post Discharge Activity
[2019-12-04] MEDS ORDERED: ACETAMINOPHEN 1000 MG/100 ML VIAL (NON FORMULARY) IVPB ONE (14:26)
[2019-12-04 14:29] LABS: BASO % 0.5 % (0-2.0); HEMATOCRIT 33.3 % (32.4-45.2); HEMOGLOBIN 10.2 GM/dL (10.7-15.3); LYMPH % 10.6 % (8-40); MCHC 30.7 g/dl (32.0-36.0); MEAN CELL VOLUME 107.4 fl (80-96); MEAN PLT VOLUME 8.5 fl (7.5-11.1); MONO % 7.1 % (3.8-10.2); NEUT % 80.8 % (42.8-82.8); PLATELET COUNT 142 K/MM3 (134-434); RDW 22.5 % (11.6-15.6); WHITE BLOOD COUNT 10.1 K/mm3 (4.0-10.0)
[2019-12-04 14:30] LABS: VENOUS BASE EXCESS -2.9 mmol/L (-2-2); VENOUS O2 SATURATION 19.7 % (70-80); VENOUS PCO2 50.9 mmHg (38-52); VENOUS PH 7.293 (7.310-7.410)
[2019-12-04 14:35] LABS: INR 1.32 (0.83-1.09); PROTHROMBIN TIME (PATIENT) 15.6 SEC (9.7-13.0)
[2019-12-04] MEDS ORDERED: ACETAMINOPHEN INJECTION 100 ML IVPB ONE (14:44)
[2019-12-04 14:57] LABS: ANISOCYTOSIS 1+; MACROCYTOSIS 1+; PLATELET ESTIMATE DECREASED
[2019-12-04 15:00] LABS: ALBUMIN 2.5 g/dl (3.4-5.0); ALK PHOS 255 U/L (45-117); ANION GAP 10 MMOL/L (8-16); BLOOD UREA NITROGEN 25.1 mg/dL (7-18); CALCIUM 8.1 mg/dL (8.5-10.1); CHLORIDE 102 mmol/L (98-107); CO2 25 mmol/L (21-32); GLUCOSE,RANDOM 207 mg/dL (74-106); POTASSIUM 4.2 mmol/L (3.5-5.1); SGOT/AST 22 U/L (15-37); SGPT/ALT 16 U/L (13-61); SODIUM 137 mmol/L (136-145); TOT PROT 6.1 g/dl (6.4-8.2)
[2019-12-04] MEDS ORDERED: VANCOMYCIN 1 GM in D5W (PRE-DOCKED) 1,000 MG/250 ML IVPB ONE (15:00)
--- NOTE | 2019-12-04 15:15 | PDOC ---
Documentation entered by Tara Cervantes SCRIBE, acting as scribe for Rody Jones MD. Rody Jones MD: This documentation has been prepared by the scribe, Tara Cervantes SCRIBE, under my direction and personally reviewed by me in its entirety. I confirm that the documentation accurately reflects all work, treatment, procedures, and medical decision making performed by me. Attending Attestation - Resident Resident Name: Ever Cheatham - ED Attending Attestation I have performed the following: I have examined & evaluated the patient, The case was reviewed & discussed with the resident, I agree w/resident's findings & plan, Exceptions are as noted - HPI HPI: 12/04/19 13:46 Patient is a 59 year old female with a significant past medical history of ESRD (HD MWF), IDDM, HTN, CAD (s/p CABG, s/p AICD), COPD, CHF HLD, PVD s/p right second toe amputation, and unstageable ulcers on bilateral heels s/p debridement, and known ulcer to dorsum of left foot, who presents to the ED with infection and maggots on her left foot ulcer which she noticed this morning. She notes streaking redness up the left lower leg. She denies f/c/n/v/d/c, or other symptoms. She notes decreased sensation to the feet chronically. Allergies: Penicillins, prednisone, gluten, morphine, beta blockers - Physicial Exam PE: 12/04/19 15:01 GENERAL: nontoxic-appearing, A/Ox4, no distress, answers questions appropriately, pleasant and humorous, making jokes HEENT: PERRLA, EOMI, moist mucous membranes NECK/BACK: no midline ttp, no spinal stepoff or deformity, no hematoma, full ROM, neck supple CARDIOVASCULAR: regular rate/rhythm, no MGR, strong peripheral pulses, capillary refill <2 seconds, extremities wwp except BLE distally lukewarm, DP pulses thready bilaterally LUNGS/RESPIRATORY: no respiratory distress, CTAB GI/ABDOMEN: symmetric [id number], normoactive BS, soft, no ttp, no midline pulsatile masses : no CVA tenderness MSK/EXTREMITIES: no muscle atrophy, no acute deformity SKIN: bilateral feet with large areas of eschar, right foot with 2nd digit amputation with purulent drainage on gentle compression of surrounding area, right foot distal dorsum deep ulceration overlying metatarsals of digit 2-4 with granulation tissue and with distal eschar with 3 maggots seen, there is also erythema/warmth to dorsum of left foot surrounding this ulcer and streaking erythema to the mid-calf on the left anteriorly NEUROLOGICAL: GCS 15, CN II-XII grossly intact, 5/5 strength proximally and distally, no facial droop - Medical Decision Making 12/04/19 15:06 59YOF with IDDM and PVD who p/w non-healing foot ulcer now appearing infected and with maggots. Initial Vital Signs Temp Pulse Resp BP Pulse Ox 98.1 F 90 18 0/0 L 100 12/04/19 13:23 12/04/19 13:23 12/04/19 13:23 12/04/19 13:23 12/04/19 13:23 DDX IBNLT: infected foot ulcer, cellulitis, osteomyelitis, necrotizing soft tissue infection, necrotizing myositis, septic arthritis, gangrene, sepsis, etc. W/U ordered: Labs as noted below TX ordered: Ofirmev, vancomycin, Zosyn EKG: Reviewed; results as noted in ECG Review section. Laboratory Tests 12/04/19 12/04/19 12/04/19 13:55 13:55 13:55 WBC 10.1 H RBC 3.10 L Hgb 10.2 L Hct 33.3 MCV 107.4 H MCH 33.0 MCHC 30.7 L RDW 22.5 H Plt Count 142 MPV 8.5 Absolute Neuts (auto) 8.2 H Neutrophils % 80.8 Lymphocytes % 10.6 D Monocytes % 7.1 Eosinophils % 1.0 Basophils % 0.5 Nucleated RBC % 0 Hypochromia 0 Platelet Estimate Decreased Polychromasia 1+ Poikilocytosis 0 Anisocytosis 1+ Microcytosis 1+ Macrocytosis 1+ PT with INR 15.60 H INR 1.32 H VBG pH 7.293 L POC VBG pCO2 50.9 POC VBG pO2 16.7 L VBG HCO3 24.1 VBG O2 Sat (Tabatha) 19.7 L VBG Base Excess -2.9 L Sodium Potassium Chloride Carbon Dioxide Anion Gap BUN Creatinine Est GFR (CKD-EPI)AfAm Est GFR (CKD-EPI)NonAf Random Glucose Lactic Acid Calcium Total Bilirubin AST ALT Alkaline Phosphatase B-Natriuretic Peptide Total Protein Albumin Beta-Hydroxybutyrate COVID-19 (RICHARD) Blood Type Antibody Screen 12/04/19 12/04/19 12/04/19 13:55 13:55 13:55 WBC RBC Hgb Hct MCV MCH MCHC RDW Plt Count MPV Absolute Neuts (auto) Neutrophils % Lymphocytes % Monocytes % Eosinophils % Basophils % Nucleated RBC % Hypochromia Platelet Estimate Polychromasia Poikilocytosis Anisocytosis Microcytosis Macrocytosis PT with INR INR VBG pH POC VBG pCO2 POC VBG pO2 VBG HCO3 VBG O2 Sat (Tabatha) VBG Base Excess Sodium 137 Potassium 4.2 Chloride 102 Carbon Dioxide 25 Anion Gap 10 BUN 25.1 H Creatinine 5.0 H Est GFR (CKD-EPI)AfAm 10.20 Est GFR (CKD-EPI)NonAf 8.80 Random Glucose 207 H Lactic Acid 1.9 Calcium 8.1 L Total Bilirubin 1.0 AST 22 ALT 16 Alkaline Phosphatase 255 H B-Natriuretic Peptide > 764550.0 H Total Protein 6.1 L Albumin 2.5 L Beta-Hydroxybutyrate 0.9 COVID-19 (RICHARD) Not detected Blood Type Antibody Screen 12/04/19 14:50 WBC RBC Hgb Hct MCV MCH MCHC RDW Plt Count MPV Absolute Neuts (auto) Neutrophils % Lymphocytes % Monocytes % Eosinophils % Basophils % Nucleated RBC % Hypochromia Platelet Estimate Polychromasia Poikilocytosis Anisocytosis Microcytosis Macrocytosis PT with INR INR VBG pH POC VBG pCO2 POC VBG pO2 VBG HCO3 VBG O2 Sat (Tabatha) VBG Base Excess Sodium Potassium Chloride Carbon Dioxide Anion Gap BUN Creatinine Est GFR (CKD-EPI)AfAm Est GFR (CKD-EPI)NonAf Random Glucose Lactic Acid Calcium Total Bilirubin AST ALT Alkaline Phosphatase B-Natriuretic Peptide Total Protein Albumin Beta-Hydroxybutyrate COVID-19 (RICHARD) Blood Type O POSITIVE Antibody Screen Negative The Pt is unsafe for discharge at this time. She requires further hospital observation, workup, and treatment. Admission procedures carried out by Dr. Cheatham, ID consult order placed, Vascular/Wound Care consults placed. Heart Score/ECG Review #1 12/04/19 15:03 Sinus rhythm, rate 71, normal axis and intervals, TWI in I and aVL which are old compared to 09/2019, I waves inferiorly same as prior as well, voltages c/w LVH. Discharge - Discharge Information Problems reviewed: Yes Clinical Impression/Diagnosis: Cellulitis, Diabetic foot ulcer, Lymphangitis, Infestation by maggots Condition: Guarded - Admission Yes - Follow up/Referral - Patient Discharge Instructions - Post Discharge Activity
[2019-12-04] MEDS ORDERED: VANCOMYCIN 1 GRAM (PRE-DOCKED) 1,000 MG/250 ML BAG IVPB ONE (15:19)
[2019-12-04 15:26] LABS: N-TERMINAL BNP > 175000.0 pg/ml (5-125)
[2019-12-04] MEDS ORDERED: MELATONIN 5 MG TABLETS PO PRN (18:15)
--- NOTE | 2019-12-04 18:18 | HP ---
CHIEF COMPLAINT: PCP: HISTORY OF PRESENT ILLNESS: 59 yo F with PMH of ESRD (M/W/F), DM, HTN, CAD( S/P CABG), HFrEF( S/P ICD), PVD (S/P right metatarsal amputation) presents to ED for worsening L foot infection. pt states that yesterday she noted increased erythema along eschar. This morning, she noted her dressing was saturated and when she removed it she saw many maggots. She attempted to clean it herself. Pt states that the wounds have been worsening since July. She states that she was following with Dr. Giraldo and Dr. Copeland before she had her graft placement. Pt states she just had an echo 2 weeks ago with her Detective And Intelligence Analyst Dr. Fernández.denies increased SOB or orthopnea Pt was has new AV graft 11/24/2019, was supposed to f/u tomorrow ER course was notable for: (1) foot XR (2)Vanco (3) PAST MEDICAL HISTORY:see above PAST SURGICAL HISTORY: CABG (4 vessel, 2014), 2 , Cataracts surgery, pectoralis revision, arthroscopy, ICD, AV graft Social History: Smoking:denies Alcohol:denies Drugs: denies Allergies Penicillins Allergy (Severe, Verified 11/24/19 07:14) RESPIRATORY DISTRESS rash and difficulty breathing prednisone Adverse Reaction (Severe, Verified 11/24/19 07:14) disorientation gluten Adverse Reaction (Verified 11/24/19 07:14) morphine Adverse Reaction (Verified 11/24/19 07:14) disorientation BETA BLOCKERS Allergy (Severe, Uncoded 11/24/19 07:14) SEVERE HYPOTENSION HOME MEDICATIONS: Home Medications Medication Instructions Recorded Fluticasone Prop 0.05% Nasal 1 - 2 spray NS DAILY 02/03/19 [Flonase -] Atorvastatin Calcium 80 mg PO HS 06/09/19 Melatonin 5 mg PO PRN 06/15/19 Clopidogrel Bisulfate [Plavix] 75 mg PO DAILY #60 tablet 07/07/19 Carvedilol [Coreg -] 3.125 mg PO HS 07/26/19 Aspirin 81 mg PO DAILY 10/07/19 Cetirizine HCl [Zyrtec -] 10 mg PO HS 10/07/19 Pantoprazole Sodium 40 mg PO DAILY 10/07/19 Ropinirole HCl 0.5 mg PO HS 10/07/19 Insulin Detemir [Levemir Flextouch] 8 unit SQ DAILY #2 insuln.pen 10/09/19 Insulin Sliding Scale [Novolog 1 units SQ TIDAC #2 pen 10/09/19 Vial Sliding Scale -] REVIEW OF SYSTEMS CONSTITUTIONAL: Absent: fever, chills, diaphoresis, generalized weakness, malaise, loss of appetite, weight change HEENT: Absent: rhinorrhea, nasal congestion, throat pain, throat swelling, difficulty swallowing, mouth swelling, ear pain, eye pain, visual changes CARDIOVASCULAR: Absent: chest pain, syncope, palpitations, irregular heart rate, lightheadedness, peripheral edema RESPIRATORY: Present: shortness of breath Absent: cough,dyspnea with exertion, orthopnea, wheezing, stridor, hemoptysis GASTROINTESTINAL: Absent: abdominal pain, abdominal distension, nausea, vomiting, diarrhea, constipation, melena, hematochezia GENITOURINARY: Absent: dysuria, frequency, urgency, hesitancy, hematuria, flank pain, genital pain MUSCULOSKELETAL: Absent: myalgia, arthralgia, joint swelling, back pain, neck pain SKIN: Present: bleeding, redness, necrosis of b/l feet Absent: rash, itching, pallor HEMATOLOGIC/IMMUNOLOGIC: Absent: easy bleeding, easy bruising, lymphadenopathy, frequent infections ENDOCRINE: Absent: unexplained weight gain, unexplained weight loss, heat intolerance, cold intolerance NEUROLOGIC: Absent: headache, focal weakness or paresthesias, dizziness, unsteady gait, seizure, mental status changes, bladder or bowel incontinence PHYSICAL EXAMINATION Vital Signs - 24 hr 12/04/19 12/04/19 12/04/19 13:23 14:20 14:26 Temperature 98.1 F Pulse Rate 90 Pulse Rate [ 72 Left Radial] Respiratory 18 20 Rate Blood Pressure 0/0 L Blood Pressure 125/33 L [Left Arm] O2 Sat by Pulse 100 100 100 Oximetry (%) GENERAL: Awake, alert, and fully oriented, in no acute distress. HEAD: Normal with no signs of trauma. EYES: extraocular movements intact, sclera anicteric EARS, NOSE, THROAT: oropharynx clear without exudates. Moist mucous membranes. LUNGS: Breath sounds equal,fine crackles, decreased at bases No accessory muscle use. HEART: Regular rate and rhythm, normal S1 and S2 + systolic murmur ABDOMEN: Soft, nontender, not distended, normoactive bowel sounds, no guarding, no rebound, no masses. MUSCULOSKELETAL: No CVA tenderness. UPPER EXTREMITIES: 2+ pulses, warm, well-perfused. No cyanosis. No peripheral edema. LOWER EXTREMITIES: R foot eschar along plantar aspect and toes. with bleeding on dorsal foot. calcaneal eschar on R heel . no edema noted . + warmth NEUROLOGICAL: Cranial nerves II-XII intact. Normal speech. Laboratory Last Values WBC 10.1 K/mm3 (4.0-10.0) H 12/04/19 13:55 RBC 3.10 M/mm3 (3.60-5.2) L 12/04/19 13:55 Hgb 10.2 GM/dL (10.7-15.3) L 12/04/19 13:55 Hct 33.3 % (32.4-45.2) 12/04/19 13:55 MCV 107.4 fl (80-96) H 12/04/19 13:55 MCH 33.0 pg (25.7-33.7) 12/04/19 13:55 MCHC 30.7 g/dl (32.0-36.0) L 12/04/19 13:55 RDW 22.5 % (11.6-15.6) H 12/04/19 13:55 Plt Count 142 K/MM3 (134-434) 12/04/19 13:55 MPV 8.5 fl (7.5-11.1) 12/04/19 13:55 Absolute Neuts (auto) 8.2 K/mm3 (1.5-8.0) H 12/04/19 13:55 Neutrophils % 80.8 % (42.8-82.8) 12/04/19 13:55 Lymphocytes % 10.6 % (8-40) D 12/04/19 13:55 Monocytes % 7.1 % (3.8-10.2) 12/04/19 13:55 Eosinophils % 1.0 % (0-4.5) 12/04/19 13:55 Basophils % 0.5 % (0-2.0) 12/04/19 13:55 Nucleated RBC % 0 % (0-0) 12/04/19 13:55 Hypochromia 0 12/04/19 13:55 Platelet Estimate Decreased 12/04/19 13:55 Polychromasia 1+ 12/04/19 13:55 Poikilocytosis 0 12/04/19 13:55 Anisocytosis 1+ 12/04/19 13:55 Microcytosis 1+ 12/04/19 13:55 Macrocytosis 1+ 12/04/19 13:55 PT with INR 15.60 SEC (9.7-13.0) H 12/04/19 13:55 INR 1.32 (0.83-1.09) H 12/04/19 13:55 VBG pH 7.293 (7.310-7.410) L 12/04/19 13:55 POC VBG pCO2 50.9 mmHg (38-52) 12/04/19 13:55 POC VBG pO2 16.7 mmHg (28-48) L 12/04/19 13:55 VBG HCO3 24.1 mmol/L (23-29) 12/04/19 13:55 VBG O2 Sat (Tabatha) 19.7 % (70-80) L 12/04/19 13:55 VBG Base Excess -2.9 mmol/L (-2-2) L 12/04/19 13:55 Sodium 137 mmol/L (136-145) 12/04/19 13:55 Potassium 4.2 mmol/L (3.5-5.1) 12/04/19 13:55 Chloride 102 mmol/L (98-107) 12/04/19 13:55 Carbon Dioxide 25 mmol/L (21-32) 12/04/19 13:55 Anion Gap 10 MMOL/L (8-16) 12/04/19 13:55 BUN 25.1 mg/dL (7-18) H 12/04/19 13:55 Creatinine 5.0 mg/dL (0.55-1.3) H 12/04/19 13:55 Est GFR (CKD-EPI)AfAm 10.20 12/04/19 13:55 Est GFR (CKD-EPI)NonAf 8.80 12/04/19 13:55 POC Glucometer 182 UNITS (80-120) 12/04/19 17:29 Random Glucose 207 mg/dL (74-106) H 12/04/19 13:55 Lactic Acid 1.9 mmol/L (0.4-2.0) 12/04/19 13:55 Calcium 8.1 mg/dL (8.5-10.1) L 12/04/19 13:55 Total Bilirubin 1.0 mg/dL (0.2-1) 12/04/19 13:55 AST 22 U/L (15-37) 12/04/19 13:55 ALT 16 U/L (13-61) 12/04/19 13:55 Alkaline Phosphatase 255 U/L (45-117) H 12/04/19 13:55 B-Natriuretic Peptide > 016194.0 pg/ml (5-125) H 12/04/19 13:55 Total Protein 6.1 g/dl (6.4-8.2) L 12/04/19 13:55 Albumin 2.5 g/dl (3.4-5.0) L 12/04/19 13:55 Beta-Hydroxybutyrate 0.9 mg/dL (0.2-2.8) 12/04/19 13:55 Blood Type O POSITIVE 12/04/19 14:50 Antibody Screen Negative 12/04/19 14:50 ASSESSMENT/PLAN: 59 yo F with PMH of ESRD (M/W/F), DM, HTN, CAD( S/P CABG), HFrEF( S/P ICD), PVD (S/P right metatarsal amputation) presents to ED for worsening L foot infection. SIRS 2/2 Gangrene, Cellulitis (b/l) L>R - cont Vanc. pt has anaphylaxis to PCN- will avoid zosyn. will give dose of Aztreonam - pending wound and blood Cx - ID consult - Vascular and Podiatry consulted - pending XR read of b/l feet - gabapentin , tylenol for pain DM - ISS, BGM , added lower dose of levemir- will cont to monitor and change as needed - A1C 9.5 10/2019 HTN - cont to monitor -c/w coreg HFrEF PVD - BNP >175,000. CXR reviewed. - Cardio consulted - will cont Statin - will cont plavix, asa - will cont coreg - I/Os, daily weights ESRD ( M,W, F) - nephro consulted . due for dialysis tomorrow - AV graft placed 11/24/2019 F/E/N - avoid IVF - monitor lytes - sodium/ diabetic diet DVT PPX: hep SQ Dispo: admit to medicine Visit type - Emergency Visit Emergency Visit: Yes ED Registration Date: 12/04/19 Care time: The patient presented to the Emergency Department on the above date and was hospitalized for further evaluation of their emergent condition. - New Patient This patient is new to me today: Yes Date on this admission: 12/04/19 - Critical Care Critical Care patient: No ATTENDING PHYSICIAN STATEMENT I saw and evaluated the patient. I reviewed the resident's note and discussed the case with the resident. I agree with the resident's findings and plan as documented. SUBJECTIVE: OBJECTIVE: ASSESSMENT AND PLAN:
--- NOTE | 2019-12-04 19:05 | PN ---
Teaching Attending Note Name of Resident: Leslie Ruelas ATTENDING PHYSICIAN STATEMENT I saw and evaluated the patient. I reviewed the resident's note and discussed the case with the resident. I agree with the resident's findings and plan as documented. 59 YOF with MHx of HFrEF (EF13%, ICD), CAD, PAD, HLD, ESRD on HD (thru Rt. port-a-cath, MWF), DM with Diabetic neuropathy, diabetic foot ulcer (bilaterally), rt 2nd toe amputation who presented to ED complaining from pain, swelling and redness of lt foot of 1 day duration SUBJECTIVE: seen and examined at bedside in ED, emotional about what is going on with her foot. Stated that she has 6-7/10 pain in left foot but it is fluctuating. OBJECTIVE: Last Vital Signs Temp Pulse Resp BP Pulse Ox 98.1 F 72 20 125/33 L 100 12/04/19 13:23 12/04/19 14:20 12/04/19 14:20 12/04/19 14:20 12/04/19 14:26 CBCD WBC 10.1 K/mm3 (4.0-10.0) H 12/04/19 13:55 RBC 3.10 M/mm3 (3.60-5.2) L 12/04/19 13:55 Hgb 10.2 GM/dL (10.7-15.3) L 12/04/19 13:55 Hct 33.3 % (32.4-45.2) 12/04/19 13:55 MCV 107.4 fl (80-96) H 12/04/19 13:55 MCHC 30.7 g/dl (32.0-36.0) L 12/04/19 13:55 RDW 22.5 % (11.6-15.6) H 12/04/19 13:55 Plt Count 142 K/MM3 (134-434) 12/04/19 13:55 MPV 8.5 fl (7.5-11.1) 12/04/19 13:55 CMP Sodium 137 mmol/L (136-145) 12/04/19 13:55 Potassium 4.2 mmol/L (3.5-5.1) 12/04/19 13:55 Chloride 102 mmol/L (98-107) 12/04/19 13:55 Carbon Dioxide 25 mmol/L (21-32) 12/04/19 13:55 Anion Gap 10 MMOL/L (8-16) 12/04/19 13:55 BUN 25.1 mg/dL (7-18) H 12/04/19 13:55 Creatinine 5.0 mg/dL (0.55-1.3) H 12/04/19 13:55 Calcium 8.1 mg/dL (8.5-10.1) L 12/04/19 13:55 Total Bilirubin 1.0 mg/dL (0.2-1) 12/04/19 13:55 AST 22 U/L (15-37) 12/04/19 13:55 ALT 16 U/L (13-61) 12/04/19 13:55 Alkaline Phosphatase 255 U/L (45-117) H 12/04/19 13:55 Total Protein 6.1 g/dl (6.4-8.2) L 12/04/19 13:55 Albumin 2.5 g/dl (3.4-5.0) L 12/04/19 13:55 Home Medications Medication Instructions Recorded Fluticasone Prop 0.05% Nasal 1 - 2 spray NS DAILY 02/03/19 [Flonase -] Atorvastatin Calcium 80 mg PO HS 06/09/19 Melatonin 5 mg PO PRN 06/15/19 Clopidogrel Bisulfate [Plavix] 75 mg PO DAILY #60 tablet 07/07/19 Carvedilol [Coreg -] 3.125 mg PO HS 07/26/19 Aspirin 81 mg PO DAILY 10/07/19 Cetirizine HCl [Zyrtec -] 10 mg PO HS 10/07/19 Pantoprazole Sodium 40 mg PO DAILY 10/07/19 Ropinirole HCl 0.5 mg PO HS 10/07/19 Insulin Detemir [Levemir Flextouch] 8 unit SQ DAILY #2 insuln.pen 10/09/19 Insulin Sliding Scale [Novolog 1 units SQ TIDAC #2 pen 10/09/19 Vial Sliding Scale -] GENERAL: Awake, alert, and fully oriented, in no acute distress. HEAD: Normal with no signs of trauma. EYES: Pupils equal, round and reactive to light, extraocular movements intact, sclera anicteric, conjunctiva clear. No lid lag. EARS, NOSE, THROAT: Ears normal, nares patent, oropharynx clear without exudates. Moist mucous membranes. NECK: Normal range of motion, supple without lymphadenopathy, JVD, or masses. LUNGS: fine rales bilaterally. No accessory muscle use. HEART: Regular rate and rhythm, normal S1 and S2 with 3/6 systolic murmur @ LSB, rub or gallop. ABDOMEN: Soft, nontender, not distended, normoactive bowel sounds, no guarding, no rebound, no masses. No hepatomegaly or splenomegaly. MUSCULOSKELETAL: Normal range of motion at all joints. No bony deformities or tenderness. No CVA tenderness. UPPER EXTREMITIES: 2+ pulses, warm, well-perfused. No cyanosis. No clubbing. No peripheral edema. LOWER EXTREMITIES: No peripheral edema, unable to feel dorsalis pedis bilaterally, posterior tibial +1 Rt, unable to feel on left, both legs warm, am putated rt 2nd toe NEUROLOGICAL: Cranial nerves II-XII intact. Normal speech. Normal gait. sensory loss below mid cam bilaterally PSYCHIATRIC: Cooperative. Good eye contact. Appropriate mood and affect. SKIN: bilaterally dry gangrene on both feet, ASSESSMENT AND PLAN: 59 YOF with MHx of HFrEF (EF13%, ICD), CAD, PAD, HLD, ESRD on HD (thru Rt. port-a-cath, MWF), DM with Diabetic neuropathy, diabetic foot ulcer (bilaterally), rt 2nd toe amputation who presented to ED complaining from pain, swelling and redness of lt foot of 1 day duration # sepsis due to Diabetic foot ulcer, cellulitis and gangrene L>R - uncontrolled DM (last noted HgA1c 9.5), under wound care (seen last week) - has pain 6/10 lt side, pain management as indicated - IV vancomycin (allergic to penicillin), aztreonam, no IV fluids for now due to pulmonary congestion - wound cultures, blood cultures taken - no fever, non tachy, WBC 10.8 - pt was informed she needed amputation but refused in the past. - Abdominal CTA with aorta and BLE runoffs done on 06/30/19 that showed moderate stenosis in distal rt SFA and prox popliteal art. as well as lt popliteal art. at level of knee. occluded distal rt peroneal with 2 vessel runnoff, and paten lt LE 3 vessel runoff - will discuss with consult if further imagining is indicated at this time, as the patient is well known to them - ID, vascular surgeon and podiatry consult requested. #ESRD on HD - AVG graft place 11/23, Rt. port-a-cath in place - MWF HD - game designer consult - renal dose of medication # DM with Diabetic neuropathy - last HgA1c 9.5 - ISS +_levemer - gabapentin 100mg QD # HFrEF, CAD - on ICD, high BNP, - resume home meds - pulmonary congestion on XR, but appears clinically comfortable - cardiology consult, strict I/O, HD per schedule tomorrow # DVT prophylaxis, fall precautions.
[2019-12-04] MEDS ORDERED: AZTREONAM 2 GM in DEXTROSE 5%-WATER 100 ML IVPB ONE (21:50)
[2019-12-04] MEDS ORDERED: rOPINIRole HCL 0.5 MG TABLET PO SCH (22:00)
[2019-12-04] MEDS: CARVEDILOL 3.125 MG TABLET (FP) PO SCH (22:40)
[2019-12-04] MEDS: rOPINIRole HCL 0.25 MG TABLET PO SCH (22:46)
[2019-12-04] MEDS ORDERED: ATORVASTATIN CA 40 MG TABLET (FP) ONE (22:52)
[2019-12-04] MEDS ORDERED: LORATADINE 10 MG TABLET ONE (22:52)
[2019-12-04] MEDS ORDERED: HEPARIN NA (PORCINE) 5,000 UNITS/ML 1ML VIAL ONE (22:52)
[2019-12-04] MEDS: LORATADINE 10 MG TABLET PO SCH (22:57)
[2019-12-04] MEDS: ATORVASTATIN CA 80 MG TABLET (FP) PO SCH (22:57)
[2019-12-04] MEDS: HEPARIN NA (PORCINE) 5,000 UNITS/ML 1ML VIAL SQ SCH (22:57)
[2019-12-05] MEDS: AZTREONAM 0.5 GM in DEXTROSE 5%-WATER - 50 ML IVPB SCH ×3 (06:23→23:00)
[2019-12-05] MEDS ORDERED: HEPARIN NA (PORCINE) 5,000 UNITS/ML 1ML VIAL ONE (06:24)
[2019-12-05 06:35] LABS: BASO % 1.2 % (0-2.0); EOS % 1.9 % (0-4.5); HEMATOCRIT 30.8 % (32.4-45.2); HEMOGLOBIN 9.4 GM/dL (10.7-15.3); LYMPH % 8.4 % (8-40); MCH 31.9 pg (25.7-33.7); MCHC 30.6 g/dl (32.0-36.0); MEAN CELL VOLUME 104.4 fl (80-96); MEAN PLT VOLUME 8.3 fl (7.5-11.1); MONO % 9.2 % (3.8-10.2); NEUT % 79.3 % (42.8-82.8); PLATELET COUNT 131 K/MM3 (134-434); RBC 2.95 M/mm3 (3.60-5.2); RDW 22.1 % (11.6-15.6); WHITE BLOOD COUNT 8.7 K/mm3 (4.0-10.0)
[2019-12-05] MEDS: HEPARIN NA (PORCINE) 5,000 UNITS/ML 1ML VIAL SQ SCH ×3 (06:38→21:52)
[2019-12-05] MEDS ORDERED: INSULIN SLIDING SCALE (NOVOLOG) 1 VIAL SQ SCH (07:00)
[2019-12-05 07:02] LABS: CALCIUM 7.9 mg/dL (8.5-10.1); MAGNESIUM 2.1 mg/dL (1.8-2.4)
[2019-12-05 07:03] LABS: ALBUMIN 2.3 g/dl (3.4-5.0); BILIRUBIN,TOTAL 0.9 mg/dL (0.2-1); CREATININE 5.7 mg/dL (0.55-1.3); PHOSPHOROUS 5.3 mg/dL (2.5-4.9); TOT PROT 5.3 g/dl (6.4-8.2)
--- NOTE | 2019-12-05 09:12 | EKG ---
Test Reason : Blood Pressure : / mmHG Vent. Rate : 071 BPM Atrial Rate : 071 BPM P-R Int : 168 ms QRS Dur : 110 ms QT Int : 454 ms P-R-T Axes : 057 -27 149 degrees QTc Int : 493 ms NORMAL SINUS RHYTHM POSSIBLE LEFT ATRIAL ENLARGEMENT LEFT VENTRICULAR HYPERTROPHY POSSIBLE INFERIOR IN , AGE UNDETERMINED ABNORMAL ECG WHEN COMPARED WITH ECG OF 07-OCT-2019 07:22, ST LESS DEPRESSED IN LATERAL LEADS T WAVE INVERSION LESS EVIDENT IN LATERAL LEADS Confirmed by Jordan Woo ([id number]) on 12/05/2019 9:12:24 AM Referred By: Confirmed By:Jordan Woo
[2019-12-05] MEDS ORDERED: VANCOMYCIN 1 GM in D5W (PRE-DOCKED) 1,000 MG/250 ML IVPB SCH ×2 (10:00→15:30)
[2019-12-05] MEDS ORDERED: FLUTICASONE PROP 0.05% 16 GM NASAL SPRAY NS PRN (10:00)
--- NOTE | 2019-12-05 10:09 | CONSULT ---
Consult - text type - Consultation Consultation Note: PODIATRY 59 yo F with PMH of ESRD (M/W/F), DM, HTN, CAD( S/P CABG), HFrEF( S/P ICD), PVD ; S/P RIGHT 2ND DIGIT AMP presents to ED for worsening L foot infection. Pt states that yesterday she noted increased erythema and then opened it to find maggots. Had been stable. Denies any other compalints. States that her right foot is doing well and healing slowly. Sees Dr. Copeland and Dr. Giraldo in the wound care center. O: Right 2nd digit amp site to the level of MT head; no bone directly exposed but is deep, no erythema, mild edema, heel with diffused eschar/necrotic changes; on the left there is near entire foot mummifications, encompasses all digits along plantar foot and to the heel, mild erythema, diffuse edema, no POP, no palpable pedal pules noted b/l; no maggots noted A: 59 y/o female with severe PAD; left foot mummification; right foot heel eschar and 2nd digit amp site. P: Evaluated and reviewed will need bka on the left and patient understands; consult for Dr. Giraldo continue local wound care on the right with iodosorb to the amputation site and then wet to dry DSD on the heel Will follow
[2019-12-05] MEDS: INSULIN SLIDING SCALE (NOVOLOG) 1 VIAL SQ SCH ×2 (12:10→18:10)
[2019-12-05] MEDS ORDERED: SODIUM CHLORIDE 250 ML IV PRN (12:24)
--- NOTE | 2019-12-05 12:47 | CON.ID ---
Consult Consult Specialty:: infectious diseases Referred by:: hospitalist Reason for Consultation:: wound infection,maggots in the wound - History of Present Illness Chief Complaint: drainage and maggots in the wound History of Present Illness: 59 yo F with PMH of ESRD (M/W/F), DM, HTN, CAD( S/P CABG), HFrEF( S/P ICD), PVD (S/P right metatarsal amputation) presents to ED for worsening L foot infection. pt states that she noted increased erythema along eschar. she noted her dressing was saturated and when she removed it she saw many maggots. She attempted to clean it herself. Pt states that the wounds have been worsening since July. Pt was has new AV graft 11/24/2019, was supposed to f/u tomorrow this morning wound was changed and it seems only one maggot was found notes of podiatry dept noted looks like patient will require amputation - History Source History Provided By: Patient Limitations to Obtaining History: No Limitations - Past Medical History COSMETIC ACCOUNT COORDINATOR: Yes: Vertigo Cardio/Vascular: Yes: CAD Pulmonary: Yes: COPD Renal/: Yes: Renal Failure, Hemodialysis Endocrine: Yes: Diabetes Mellitus - Past Surgical History Past Surgical History: Yes: Arthrosocopy (Rt knee surgery in her 20s secondary to chrondomalacia), CABG - Alcohol/Substance Use Hx Alcohol Use: No History of Substance Use: reports: None - Smoking History Smoking history: Former smoker Have you smoked in the past 12 months: No Aproximately how many cigarettes per day: 0 If you are a former smoker, when did you quit?: 1997 - Social History Usual Living Arrangement: Other (adult children) ADL: Independent 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 Home Medications - Allergies Allergies/Adverse Reactions: Allergies Allergy/AdvReac Type Severity Reaction Status Date / Time Penicillins Allergy Severe RESPIRATORY Verified 11/24/19 07:14 DISTRESS prednisone AdvReac Severe disorientat Verified 11/24/19 07:14 ion gluten AdvReac Verified 11/24/19 07:14 morphine AdvReac disorientat Verified 11/24/19 07:14 ion BETA BLOCKERS Allergy Severe SEVERE Uncoded 11/24/19 07:14 HYPOTENSION - Home Medications Home Medications: Ambulatory Orders Fluticasone Prop 0.05% Nasal [Flonase -] 1 - 2 spray NS DAILY 02/03/19 Atorvastatin Calcium 80 mg PO HS 06/09/19 Melatonin 5 mg PO PRN 06/15/19 Clopidogrel Bisulfate [Plavix] 75 mg PO DAILY #60 tablet 07/07/19 Carvedilol [Coreg -] 3.125 mg PO HS 07/26/19 Aspirin 81 mg PO DAILY 10/07/19 Cetirizine HCl [Zyrtec -] 10 mg PO HS 10/07/19 Pantoprazole Sodium 40 mg PO DAILY 10/07/19 Ropinirole HCl 0.5 mg PO HS 10/07/19 Insulin Detemir [Levemir Flextouch] 8 unit SQ DAILY #2 insuln.pen 10/09/19 Insulin Sliding Scale [Novolog Vial Sliding Scale -] 1 units SQ TIDAC #2 pen 10/09/19 Review of Systems - Review of Systems Constitutional: reports: Weakness Eyes: reports: No Symptoms HENT: reports: No Symptoms Neck: reports: No Symptoms Cardiovascular: reports: No Symptoms Respiratory: reports: No Symptoms Gastrointestinal: reports: No Symptoms Genitourinary: reports: No Symptoms Musculoskeletal: reports: Other Integumentary: reports: Erythema, Wound, Other (maggots in the wound) Neurological: reports: No Symptoms Endocrine: reports: No Symptoms Hematology/Lymphatic: reports: No Symptoms Psychiatric: reports: No Symptoms Physical Exam Vital Signs: Vital Signs Temperature 98.7 F 12/05/19 06:03 Pulse Rate 74 12/05/19 06:03 Respiratory Rate 18 12/05/19 06:03 Blood Pressure 126/32 L 12/05/19 06:03 O2 Sat by Pulse Oximetry (%) 98 12/05/19 06:03 Constitutional: Yes: Calm, Other (depressed) HENT: Yes: Atraumatic, Normocephalic Neck: Yes: Supple, Trachea Midline Cardiovascular: Yes: Regular Rate and Rhythm Respiratory: Yes: Regular, CTA Bilaterally Gastrointestinal: Yes: Normal Bowel Sounds, Soft Musculoskeletal: Yes: WNL Extremities: Yes: Other Wound/Incision: Yes: Dressing Dry and Intact, Other Neurological: Yes: Alert, Oriented Psychiatric: Yes: Alert, Oriented Labs: CBC, BMP 12/05/19 06:20 12/05/19 06:20 Imaging - Results Chest X-ray: Report Reviewed, Image Reviewed X-ray: Report Reviewed, Image Reviewed Assessment/Plan 59 yo F with PMH of ESRD (M/W/F), DM, HTN, CAD( S/P CABG), HFrEF( S/P ICD), PVD (S/P right metatarsal amputation) presents to ED for worsening L foot infection. cellulitis gangrene of the foot dm htn hferp esrd plan will stop vanco wound care plan for the amputation rest as per the team await for cx reports
[2019-12-05] MEDS ORDERED: EPOETIN ALFA 10,000 UNIT/1 ML VIAL IVPUSH ONE (13:00)
--- NOTE | 2019-12-05 13:33 | CON.CARD ---
Cardiology Consult (text) - Consultation Consultation Note: Chief Complaint: foot wound History of Present Illness: 59F h/o CAD s/p CABG, chronic systolic HF s/p ICD, DM, ESRD on HD chronic L foot wound p/w worsening foot wound. Patient of Dr. Fernández. No cp sob palps dizzy loc pnd orthopnea le edema. 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 Cardio/Vascular: Yes: CAD Pulmonary: Yes: COPD Endocrine: Yes: Diabetes Mellitus - Past Surgical History Past Surgical History: Yes: Arthrosocopy (Rt knee surgery in her 20s secondary to chrondomalacia), CABG - Alcohol/Substance Use Hx Alcohol Use: No History of Substance Use: reports: None - Smoking History Smoking history: Never smoked Have you smoked in the past 12 months: No Aproximately how many cigarettes per day: 0 If you are a former smoker, when did you quit?: 18 yrs ago - Social History Usual Living Arrangement: Other (adult children) ADL: Independent 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 Home Medications - Allergies Allergies/Adverse Reactions: Allergies Allergy/AdvReac Type Severity Reaction Status Date / Time Penicillins Allergy Severe RESPIRATORY Verified 11/24/19 07:14 DISTRESS prednisone AdvReac Severe disorientat Verified 11/24/19 07:14 ion gluten AdvReac Verified 11/24/19 07:14 morphine AdvReac disorientat Verified 11/24/19 07:14 ion BETA BLOCKERS Allergy Severe SEVERE Uncoded 11/24/19 07:14 HYPOTENSION Home Medications Medication Instructions Recorded Fluticasone Prop 0.05% Nasal 1 - 2 spray NS DAILY 02/03/19 [Flonase -] Atorvastatin Calcium 80 mg PO HS 06/09/19 Melatonin 5 mg PO PRN 06/15/19 Clopidogrel Bisulfate [Plavix] 75 mg PO DAILY #60 tablet 07/07/19 Carvedilol [Coreg -] 3.125 mg PO HS 07/26/19 Aspirin 81 mg PO DAILY 10/07/19 Cetirizine HCl [Zyrtec -] 10 mg PO HS 10/07/19 Pantoprazole Sodium 40 mg PO DAILY 10/07/19 Ropinirole HCl 0.5 mg PO HS 10/07/19 Insulin Detemir [Levemir Flextouch] 8 unit SQ DAILY #2 insuln.pen 10/09/19 Insulin Sliding Scale [Novolog 1 units SQ TIDAC #2 pen 10/09/19 Vial Sliding Scale -] Current Medications Generic Name Dose Route Start Last Admin Trade Name Freq PRN Reason Stop Dose Admin Acetaminophen 650 mg 12/04/19 17:57 Tylenol - PO Q6H PRN Fever Or Pain Aspirin 81 mg 12/05/19 10:00 Asa - PO DAILY [facility] Atorvastatin Calcium 80 mg 12/04/19 22:00 12/04/19 22:57 Lipitor - PO Not Given HS [facility] Carvedilol 3.125 mg 12/04/19 22:00 12/04/19 22:40 Coreg - PO Not Given HS [facility] Clopidogrel Bisulfate 75 mg 12/05/19 10:00 Plavix - PO DAILY [facility] Fluticasone Propionate 2 spray 12/05/19 10:00 Flonase - NS DAILY PRN ALLERGIES Gabapentin 100 mg 12/05/19 10:00 Neurontin - PO DAILY [facility] Heparin Sodium (Porcine) 5,000 unit 12/04/19 22:00 12/05/19 06:38 Heparin - SQ 5,000 unit TID [facility] Administration Aztreonam 0.5 gm/ Dextrose 50 mls @ 100 mls/hr 12/05/19 06:00 12/05/19 06:23 IVPB 100 mls/hr TID [facility] Administration Protocol Metronidazole 500 mg in 100 mls @ 100 mls/hr 12/04/19 22:30 12/04/19 23:45 Flagyl 500mg Premixed Ivpb - IVPB 100 mls/hr TID [facility] Administration Sodium Chloride 250 mls @ 3,000 mls/hr 12/05/19 12:24 Normal Saline - IV 12/06/19 12:23 PRN PRN Hypotension during Dialysis Insulin Aspart 1 vial 12/05/19 07:00 Novolog Vial Sliding Scale - SQ TIDAC [facility] Protocol Insulin Detemir 4 units 12/05/19 07:00 Levemir Vial SQ AM [facility] Loratadine 10 mg 12/04/19 22:00 12/04/19 22:57 Claritin - PO 10 mg HS [facility] Administration Melatonin 5 mg 12/04/19 18:15 Melatonin PO HS PRN INSOMNIA Pantoprazole Sodium 40 mg 12/05/19 10:00 Protonix - PO DAILY [facility] Ropinirole HCl 0.5 mg 12/04/19 22:45 12/04/19 22:46 Requip - PO 0.5 mg HS [facility] Administration Family Medical History Family History: Unremarkable Review of Systems per hpi, all others nl Vital Signs Period Temp Pulse Resp BP Sys/Horowitz Pulse Ox Last 24 Hr 98.0 F-98.7 F 64-74 18-20 113-130/32-47 96-100 Constitutional: Yes: No Distress, Calm Eyes: Yes: Conjunctiva Clear, EOM Intact HENT: Yes: Atraumatic, Normocephalic Neck: Yes: Supple, Trachea Midline Respiratory: Yes: Regular, CTA Bilaterally Gastrointestinal: Yes: Normal Bowel Sounds, Soft Cardiovascular: Yes: Regular Rate and Rhythm JVD: No Heart Sounds: Yes: S1, S2 Extremities: No: Cold Edema: No, +foot gangrene Neurological: Yes: Alert, Oriented Psychiatric: No: Agitated no jaundice diaphoresis Laboratory Last Values WBC 8.7 K/mm3 (4.0-10.0) 12/05/19 06:20 RBC 2.95 M/mm3 (3.60-5.2) L 12/05/19 06:20 Hgb 9.4 GM/dL (10.7-15.3) L 12/05/19 06:20 Hct 30.8 % (32.4-45.2) L 12/05/19 06:20 MCV 104.4 fl (80-96) H 12/05/19 06:20 MCH 31.9 pg (25.7-33.7) 12/05/19 06:20 MCHC 30.6 g/dl (32.0-36.0) L 12/05/19 06:20 RDW 22.1 % (11.6-15.6) H 12/05/19 06:20 Plt Count 131 K/MM3 (134-434) L 12/05/19 06:20 MPV 8.3 fl (7.5-11.1) 12/05/19 06:20 Absolute Neuts (auto) 6.9 K/mm3 (1.5-8.0) 12/05/19 06:20 Neutrophils % 79.3 % (42.8-82.8) 12/05/19 06:20 Lymphocytes % 8.4 % (8-40) D 12/05/19 06:20 Monocytes % 9.2 % (3.8-10.2) 12/05/19 06:20 Eosinophils % 1.9 % (0-4.5) D 12/05/19 06:20 Basophils % 1.2 % (0-2.0) 12/05/19 06:20 Nucleated RBC % 0 % (0-0) 12/05/19 06:20 Hypochromia 0 12/04/19 13:55 Platelet Estimate Decreased 12/04/19 13:55 Polychromasia 1+ 12/04/19 13:55 Poikilocytosis 0 12/04/19 13:55 Anisocytosis 1+ 12/04/19 13:55 Microcytosis 1+ 12/04/19 13:55 Macrocytosis 1+ 12/04/19 13:55 PT with INR 15.60 SEC (9.7-13.0) H 12/04/19 13:55 INR 1.32 (0.83-1.09) H 12/04/19 13:55 VBG pH 7.293 (7.310-7.410) L 12/04/19 13:55 POC VBG pCO2 50.9 mmHg (38-52) 12/04/19 13:55 POC VBG pO2 16.7 mmHg (28-48) L 12/04/19 13:55 VBG HCO3 24.1 mmol/L (23-29) 12/04/19 13:55 VBG O2 Sat ([place]) 19.7 % (70-80) L 12/04/19 13:55 VBG Base Excess -2.9 mmol/L (-2-2) L 12/04/19 13:55 Sodium 135 mmol/L (136-145) L 12/05/19 06:20 Potassium 4.0 mmol/L (3.5-5.1) 12/05/19 06:20 Chloride 103 mmol/L (98-107) 12/05/19 06:20 Carbon Dioxide 22 mmol/L (21-32) 12/05/19 06:20 Anion Gap 10 MMOL/L (8-16) 12/05/19 06:20 BUN 32.0 mg/dL (7-18) H 12/05/19 06:20 Creatinine 5.7 mg/dL (0.55-1.3) H 12/05/19 06:20 Est GFR (CKD-EPI)AfAm 8.71 12/05/19 06:20 Est GFR (CKD-EPI)NonAf 7.51 12/05/19 06:20 POC Glucometer 236 UNITS (80-120) 12/05/19 12:06 Random Glucose 202 mg/dL (74-106) H 12/05/19 06:20 Lactic Acid 1.9 mmol/L (0.4-2.0) 12/04/19 13:55 Calcium 7.9 mg/dL (8.5-10.1) L 12/05/19 06:20 Phosphorus 5.3 mg/dL (2.5-4.9) H 12/05/19 06:20 Magnesium 2.1 mg/dL (1.8-2.4) 12/05/19 06:20 Total Bilirubin 0.9 mg/dL (0.2-1) 12/05/19 06:20 AST 11 U/L (15-37) L 12/05/19 06:20 ALT 13 U/L (13-61) 12/05/19 06:20 Alkaline Phosphatase 220 U/L (45-117) H 12/05/19 06:20 B-Natriuretic Peptide > 211511.0 pg/ml (5-125) H 12/04/19 13:55 Total Protein 5.3 g/dl (6.4-8.2) L 12/05/19 06:20 Albumin 2.3 g/dl (3.4-5.0) L 12/05/19 06:20 Beta-Hydroxybutyrate 0.9 mg/dL (0.2-2.8) 12/04/19 13:55 Random Vancomycin 20.3 ug/ml (5-26) 12/05/19 06:20 Blood Type O POSITIVE 12/05/19 06:20 Antibody Screen Negative 12/05/19 06:20 EKG: sinus, nl intervals, lvh with repol, similar to prior echo 03/2019 tds, mod to sev MR, mild to mod ao sclerosis, severe TR, severely reduced LV function, RVSP >60 mmHg, LV/RV not well visualized, mild to mod AR mibi 03/2019 mod size inferolateral infarct with mild марина-infarct ischemia, global hypokinesis, EF 13% cxr: no chf a/p: 59F h/o CAD s/p CABG, chronic systolic HF s/p ICD, DM, ESRD on HD chronic L foot wound p/w worsening foot wound. chronic systolic HF, s/p ICD - appears euvolemic - volume management per renal with HD - continue carvedilol, additional chf meds limited by low BP in the past CAD s/p CABG - stable, no angina, no signs acs - cont statin, asa, bb - recent mibi w/o significant ischemia DM - manage per primary pad, non healing wound, gangrene: -possible bka planned, awaiting vascular input -no cardiac contraindications to bka
--- NOTE | 2019-12-05 14:10 | CONSULT ---
Consult Consult Specialty:: Nephrology Reason for Consultation:: ESRD - History of Present Illness Chief Complaint: worsening left foot infection History of Present Illness: Pt is a 59 year old female with pmhx of ESRD, DM, HTN, CHF, CAD, PVD who presents with worsening left foot infection. She found maggots in her wound when she removed the dressing. She denies fever or chills. SHe is due for HD today. She is compliant with her HD regiment. She has appetite. She denies chest pain or shortness of breath. 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 Cardio/Vascular: Yes: CAD Pulmonary: Yes: COPD Renal/: Yes: Renal Failure, Hemodialysis Endocrine: Yes: Diabetes Mellitus - Past Surgical History Past Surgical History: Yes: Arthrosocopy (Rt knee surgery in her 20s secondary to chrondomalacia), CABG - Alcohol/Substance Use Hx Alcohol Use: No History of Substance Use: reports: None - Smoking History Smoking history: Former smoker Have you smoked in the past 12 months: No Aproximately how many cigarettes per day: 0 If you are a former smoker, when did you quit?: 1997 - Social History Usual Living Arrangement: Other (adult children) ADL: Independent 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 Home Medications - Allergies Allergies/Adverse Reactions: Allergies Allergy/AdvReac Type Severity Reaction Status Date / Time Penicillins Allergy Severe RESPIRATORY Verified 11/24/19 07:14 DISTRESS prednisone AdvReac Severe disorientat Verified 11/24/19 07:14 ion gluten AdvReac Verified 11/24/19 07:14 morphine AdvReac disorientat Verified 11/24/19 07:14 ion BETA BLOCKERS Allergy Severe SEVERE Uncoded 11/24/19 07:14 HYPOTENSION - Home Medications Home Medications: Ambulatory Orders RX: Fluticasone Prop 0.05% Nasal [Flonase -] 1 - 2 spray NS DAILY 02/03/19 RX: Atorvastatin Calcium 80 mg PO HS 06/09/19 RX: Melatonin 5 mg PO PRN 06/15/19 RX: Clopidogrel Bisulfate [Plavix] 75 mg PO DAILY #60 tablet 07/07/19 RX: Carvedilol [Coreg -] 3.125 mg PO HS 07/26/19 RX: Aspirin 81 mg PO DAILY 10/07/19 RX: Cetirizine HCl [Zyrtec -] 10 mg PO HS 10/07/19 RX: Pantoprazole Sodium 40 mg PO DAILY 10/07/19 RX: Ropinirole HCl 0.5 mg PO HS 10/07/19 Insulin Detemir [Levemir Flextouch] 8 unit SQ DAILY #2 insuln.pen 10/09/19 Insulin Sliding Scale [Novolog Vial Sliding Scale -] 1 units SQ TIDAC #2 pen 10/09/19 Family Medical History Family History: Denies Review of Systems - Review of Systems Constitutional: reports: No Symptoms. denies: Chills, Fever Eyes: reports: No Symptoms Neck: reports: No Symptoms Respiratory: reports: No Symptoms Gastrointestinal: reports: No Symptoms Genitourinary: reports: No Symptoms Musculoskeletal: reports: Muscle Weakness Neurological: reports: No Symptoms Endocrine: reports: No Symptoms Psychiatric: reports: No Symptoms Physical Exam Vital Signs: Vital Signs Temperature 98.7 F 12/05/19 06:03 Pulse Rate 74 12/05/19 06:03 Respiratory Rate 18 12/05/19 06:03 Blood Pressure 126/32 L 12/05/19 06:03 O2 Sat by Pulse Oximetry (%) 98 12/05/19 06:03 Constitutional: Yes: Calm Eyes: Yes: Conjunctiva Clear HENT: Yes: Atraumatic Neck: Yes: Supple Cardiovascular: Yes: S1, S2 Respiratory: Yes: CTA Bilaterally Gastrointestinal: Yes: Soft Renal/: Yes: WNL Musculoskeletal: Yes: Other (graft with thrill and bruit) Extremities: Yes: Other Edema: No Wound/Incision: Yes: Dressing Dry and Intact Labs: CBC, BMP 12/05/19 06:20 12/05/19 06:20 Problem List - Problems (1) ESRD (end stage renal disease) Code(s): N18.6 - END STAGE RENAL DISEASE (2) Cellulitis Code(s): L03.90 - CELLULITIS, UNSPECIFIED Qualifiers: Site of cellulitis: extremity Site of cellulitis of extremity: lower extremity Laterality: unspecified laterality Qualified Code(s): L03.119 - Cellulitis of unspecified part of limb Assessment/Plan Current Medications Generic Name Dose Route Start Last Admin Trade Name Freq PRN Reason Stop Dose Admin Acetaminophen 650 mg 12/04/19 17:57 Tylenol - PO Q6H PRN Fever Or Pain Aspirin 81 mg 12/05/19 10:00 Asa - PO DAILY [facility] Atorvastatin Calcium 80 mg 12/04/19 22:00 12/04/19 22:57 Lipitor - PO Not Given HS [facility] Carvedilol 3.125 mg 12/04/19 22:00 12/04/19 22:40 Coreg - PO Not Given HS [facility] Clopidogrel Bisulfate 75 mg 12/05/19 10:00 Plavix - PO DAILY [facility] Fluticasone Propionate 2 spray 12/05/19 10:00 Flonase - NS DAILY PRN ALLERGIES Gabapentin 100 mg 12/05/19 10:00 Neurontin - PO DAILY [facility] Heparin Sodium (Porcine) 5,000 unit 12/04/19 22:00 12/05/19 06:38 Heparin - SQ 5,000 unit TID [facility] Administration Aztreonam 0.5 gm/ Dextrose 50 mls @ 100 mls/hr 12/05/19 06:00 12/05/19 06:23 IVPB 100 mls/hr TID [facility] Administration Protocol Metronidazole 500 mg in 100 mls @ 100 mls/hr 12/04/19 22:30 12/04/19 23:45 Flagyl 500mg Premixed Ivpb - IVPB 100 mls/hr TID [facility] Administration Sodium Chloride 250 mls @ 3,000 mls/hr 12/05/19 12:24 Normal Saline - IV 12/06/19 12:23 PRN PRN Hypotension during Dialysis Insulin Aspart 1 vial 12/05/19 07:00 Novolog Vial Sliding Scale - SQ TIDAC [facility] Protocol Insulin Detemir 4 units 12/05/19 07:00 Levemir Vial SQ AM [facility] Loratadine 10 mg 12/04/19 22:00 12/04/19 22:57 Claritin - PO 10 mg HS [facility] Administration Melatonin 5 mg 12/04/19 18:15 Melatonin PO HS PRN INSOMNIA Pantoprazole Sodium 40 mg 12/05/19 10:00 Protonix - PO DAILY [facility] Ropinirole HCl 0.5 mg 12/04/19 22:45 12/04/19 22:46 Requip - PO 0.5 mg HS [facility] Administration Impression 1. ESRD 2. CHF 3. DM 4. HTN 5. hyperlipidemia 6. nephrotic range proteinuria 7. CAD 8. lower ext infection Plan - HD today - renal diet - graft to be used today, discussed with vascular - podiatry and vascular eval - will need more aggressive wound care
--- NOTE | 2019-12-05 14:57 | PN ---
Physical Exam: SUBJECTIVE: Patient seen and examined at bedside this morning. On examination of the wound today, maggots noted on left foot. OBJECTIVE: Vital Signs Temperature 98.8 F 12/05/19 13:55 Pulse Rate 80 12/05/19 14:00 Respiratory Rate 18 12/05/19 14:00 Blood Pressure 131/45 L 12/05/19 14:00 O2 Sat by Pulse Oximetry (%) 98 12/05/19 06:03 GENERAL: The patient is awake, alert, and fully oriented, in no acute distress. NECK: Trachea midline, full range of motion, supple. LUNGS: Breath sounds equal, clear to auscultation bilaterally HEART: Regular rate and rhythm, S1, S2 ABDOMEN: Soft, nontender, nondistended, normoactive bowel sounds EXTREMITIES: no palpable pedal pulses bilaterally; RLE: 2nd digit amputated with ulceration but no erythema, right heel with diffuse eschar. LLE: all digits with ulcerations/eschar, maggot seen on the dorsal wound NEUROLOGICAL: Cranial nerves II through XII grossly intact. Normal speech PSYCH: Normal mood, normal affect. SKIN: Warm, dry, normal turgor Laboratory Results - last 24 hr 12/04/19 12/04/19 12/04/19 13:55 13:55 13:55 WBC RBC Hgb Hct MCV MCH MCHC RDW Plt Count MPV Absolute Neuts (auto) Neutrophils % Lymphocytes % Monocytes % Eosinophils % Basophils % Nucleated RBC % Hypochromia 0 Platelet Estimate Decreased Polychromasia 1+ Poikilocytosis 0 Anisocytosis 1+ Microcytosis 1+ Macrocytosis 1+ Sodium 137 Potassium 4.2 Chloride 102 Carbon Dioxide 25 Anion Gap 10 BUN 25.1 H Creatinine 5.0 H Est GFR (CKD-EPI)AfAm 10.20 Est GFR (CKD-EPI)NonAf 8.80 POC Glucometer Random Glucose 207 H Lactic Acid 1.9 Calcium 8.1 L Phosphorus Magnesium Total Bilirubin 1.0 AST 22 ALT 16 Alkaline Phosphatase 255 H B-Natriuretic Peptide > 139226.0 H Total Protein 6.1 L Albumin 2.5 L Beta-Hydroxybutyrate 0.9 Random Vancomycin Blood Type Antibody Screen 12/04/19 12/04/19 12/05/19 14:50 17:29 06:20 WBC RBC Hgb Hct MCV MCH MCHC RDW Plt Count MPV Absolute Neuts (auto) Neutrophils % Lymphocytes % Monocytes % Eosinophils % Basophils % Nucleated RBC % Hypochromia Platelet Estimate Polychromasia Poikilocytosis Anisocytosis Microcytosis Macrocytosis Sodium Potassium Chloride Carbon Dioxide Anion Gap BUN Creatinine Est GFR (CKD-EPI)AfAm Est GFR (CKD-EPI)NonAf POC Glucometer 182 Random Glucose Lactic Acid Calcium Phosphorus Magnesium Total Bilirubin AST ALT Alkaline Phosphatase B-Natriuretic Peptide Total Protein Albumin Beta-Hydroxybutyrate Random Vancomycin 20.3 Blood Type O POSITIVE Antibody Screen Negative 12/05/19 12/05/19 12/05/19 06:20 06:20 06:20 WBC 8.7 RBC 2.95 L Hgb 9.4 L Hct 30.8 L MCV 104.4 H MCH 31.9 MCHC 30.6 L RDW 22.1 H Plt Count 131 L MPV 8.3 Absolute Neuts (auto) 6.9 Neutrophils % 79.3 Lymphocytes % 8.4 D Monocytes % 9.2 Eosinophils % 1.9 D Basophils % 1.2 Nucleated RBC % 0 Hypochromia Platelet Estimate Polychromasia Poikilocytosis Anisocytosis Microcytosis Macrocytosis Sodium 135 L Potassium 4.0 Chloride 103 Carbon Dioxide 22 Anion Gap 10 BUN 32.0 H Creatinine 5.7 H Est GFR (CKD-EPI)AfAm 8.71 Est GFR (CKD-EPI)NonAf 7.51 POC Glucometer Random Glucose 202 H Lactic Acid Calcium 7.9 L Phosphorus 5.3 H Magnesium 2.1 Total Bilirubin 0.9 AST 11 L ALT 13 Alkaline Phosphatase 220 H B-Natriuretic Peptide Total Protein 5.3 L Albumin 2.3 L Beta-Hydroxybutyrate Random Vancomycin Blood Type O POSITIVE Antibody Screen Negative 12/05/19 12/05/19 06:54 12:06 WBC RBC Hgb Hct MCV MCH MCHC RDW Plt Count MPV Absolute Neuts (auto) Neutrophils % Lymphocytes % Monocytes % Eosinophils % Basophils % Nucleated RBC % Hypochromia Platelet Estimate Polychromasia Poikilocytosis Anisocytosis Microcytosis Macrocytosis Sodium Potassium Chloride Carbon Dioxide Anion Gap BUN Creatinine Est GFR (CKD-EPI)AfAm Est GFR (CKD-EPI)NonAf POC Glucometer 188 236 Random Glucose Lactic Acid Calcium Phosphorus Magnesium Total Bilirubin AST ALT Alkaline Phosphatase B-Natriuretic Peptide Total Protein Albumin Beta-Hydroxybutyrate Random Vancomycin Blood Type Antibody Screen Active Medications Generic Name Dose Route Start Last Admin Trade Name Freq PRN Reason Stop Dose Admin Acetaminophen 650 mg 12/04/19 17:57 Tylenol - PO Q6H PRN Fever Or Pain Aspirin 81 mg 12/05/19 10:00 Asa - PO DAILY [facility] Atorvastatin Calcium 80 mg 12/04/19 22:00 12/04/19 22:57 Lipitor - PO Not Given HS [facility] Carvedilol 3.125 mg 12/04/19 22:00 12/04/19 22:40 Coreg - PO Not Given HS [facility] Clopidogrel Bisulfate 75 mg 12/05/19 10:00 Plavix - PO DAILY [facility] Fluticasone Propionate 2 spray 12/05/19 10:00 Flonase - NS DAILY PRN ALLERGIES Gabapentin 100 mg 12/05/19 10:00 Neurontin - PO DAILY [facility] Heparin Sodium (Porcine) 5,000 unit 12/04/19 22:00 12/05/19 06:38 Heparin - SQ 5,000 unit TID [facility] Administration Aztreonam 0.5 gm/ Dextrose 50 mls @ 100 mls/hr 12/05/19 06:00 12/05/19 06:23 IVPB 100 mls/hr TID [facility] Administration Protocol Metronidazole 500 mg in 100 mls @ 100 mls/hr 12/04/19 22:30 12/04/19 23:45 Flagyl 500mg Premixed Ivpb - IVPB 100 mls/hr TID [facility] Administration Sodium Chloride 250 mls @ 3,000 mls/hr 12/05/19 12:24 Normal Saline - IV 12/06/19 12:23 PRN PRN Hypotension during Dialysis Insulin Aspart 1 vial 12/05/19 07:00 Novolog Vial Sliding Scale - SQ TIDAC [facility] Protocol Insulin Detemir 4 units 12/05/19 07:00 Levemir Vial SQ AM [facility] Loratadine 10 mg 12/04/19 22:00 12/04/19 22:57 Claritin - PO 10 mg HS [facility] Administration Melatonin 5 mg 12/04/19 18:15 Melatonin PO HS PRN INSOMNIA Pantoprazole Sodium 40 mg 12/05/19 10:00 Protonix - PO DAILY [facility] Ropinirole HCl 0.5 mg 12/04/19 22:45 12/04/19 22:46 Requip - PO 0.5 mg HS [facility]AN[facility] Administration ASSESSMENT/PLAN: Patient is a 59 year old female with past medical history of HTN, PAD, CAD(s/p CABG), HFrEF(s/p ICD), ESRD (MWF), DM, right second toe amputation and chronic wound drainage on her left foot since early May, presented to the ED on 12/03 with worsening cellulitis of the foot with the presence of maggots that she had noticed that morning. She had been receiving routine wound care up until 2 weeks ago when she had an AV graft placement done in the right arm. #SIRS 2/2 Gangrene, Cellulitis (b/l) L>R - Aztreonam 0.5g TID and flagyl 500mg TID - pending wound cx, blood cx (neg 24 hours, f/u for 4 days) - XR foot, Lt - May be a soft tissue ulceration by the MCP joints in the lateral view. Osteomyelitis can't be ruled out - C/w wound care on the right foot w/iodosorb then wet-to-dry DSD on the hell - ID (Dr. Charles) consulted, Vascular (Dr. Giraldo), and Podiatry (Dr. Copeland) following. Recommendations appreciated - As per podiatry, pt will need BKA and she is in agreement, pending vascular recs. - Cardiology (Dr. Alford) consulted for cardiac clearance. - no cardiac contraindications to bka - tylenol for pain #DM - A1C 9.5 (from 10/2019) - Insulin sliding scale implemented - BGM ACHS - Gabapentin for neuropathy #HTN - c/w coreg #PAD - No claudications, absent pedal pulses - C/w with DAPT and statin #HFrEF - BNP >175,000. CXR reviewed. - Cardio (Dr. Alford) consulted. Recommendations appreciated - C/w Statin, plavix, asa, coreg - EKG NSR, similar to prior - 03/2019 Echo EF 13%, patient isn't experiencing sx associated with an exacerbation (orthopnea, NPD, SOB, etc), CXR neg for CHF - I/Os, daily weights, monitor for change in sx, manage with HD #ESRD ( M,W, F) - Nephrology (Dr. Pond) consulted. - Dialysis today (MWF) - AV graft placed 11/24/2019 #FEN -Not on standing fluids -Electrolytes wnl, will continue to monitor -Renal diet #Prophylaxis -Heparin 5,000 U -Pantoprazole 40mg QD #Disposition -Will continue to monitor patient on MS Visit type - Emergency Visit Emergency Visit: Yes ED Registration Date: 12/04/19 Care time: The patient presented to the Emergency Department on the above date and was hospitalized for further evaluation of their emergent condition. - New Patient This patient is new to me today: Yes Date on this admission: 12/05/19 - Critical Care Critical Care patient: No ATTENDING PHYSICIAN STATEMENT I saw and evaluated the patient. I reviewed the resident's note and discussed the case with the resident. I agree with the resident's findings and plan as documented. SUBJECTIVE: OBJECTIVE: ASSESSMENT AND PLAN:
--- NOTE | 2019-12-05 16:23 | PN ---
Teaching Attending Note Name of Resident: Lupis Farrell ATTENDING PHYSICIAN STATEMENT I saw and evaluated the patient. I reviewed the resident's note and discussed the case with the resident. I agree with the resident's findings and plan as documented. SUBJECTIVE: Patient seen and examined at bedside, admitted for L foot gangrene w/ maggot infestation, requiring L BKA per podiatry, patient in agreement. VSS. OBJECTIVE: GA comfortable, AAox3 HEENT NC/AT, EOMI Chest good air entry b/l, no crackles or wheezing CVS s1, S2+, RRR Abd Soft, NT, ND, BS+ Ext LLE foot gangrene with eschar formation and maggot infestation in L foot wound. Vital Signs - 24 hr 12/04/19 12/05/19 12/05/19 22:28 02:00 02:05 Temperature 98.0 F 98.0 F Pulse Rate Pulse Rate [ 64 68 Left Radial] Respiratory 18 Rate Blood Pressure Blood Pressure 113/47 L 130/43 L [Left Arm] O2 Sat by Pulse 96 100 98 Oximetry (%) 12/05/19 12/05/19 12/05/19 06:03 10:00 13:55 Temperature 98.7 F 98.9 F 98.8 F Pulse Rate 77 76 Pulse Rate [ 74 Left Radial] Respiratory 18 16 18 Rate Blood Pressure 140/61 143/45 L Blood Pressure 126/32 L [Left Arm] O2 Sat by Pulse 98 Oximetry (%) 12/05/19 12/05/19 12/05/19 14:00 14:30 15:00 Temperature Pulse Rate 80 80 74 Pulse Rate [ Left Radial] Respiratory 18 18 18 Rate Blood Pressure 131/45 L 129/56 L 145/68 Blood Pressure [Left Arm] O2 Sat by Pulse Oximetry (%) 12/05/19 12/05/19 12/05/19 15:02 15:30 16:00 Temperature 99.0 F Pulse Rate 74 79 81 Pulse Rate [ Left Radial] Respiratory 16 18 18 Rate Blood Pressure 144/56 L 128/31 L 137/60 Blood Pressure [Left Arm] O2 Sat by Pulse 100 Oximetry (%) Microbiology 12/04/19 13:55 Blood - Peripheral Venous Blood Culture - Preliminary NO GROWTH OBTAINED AFTER 24 HOURS, INCUBATION TO CONTINUE FOR 4 DAYS. 12/04/19 14:10 Wound Gram Stain - Final 12/04/19 13:55 Blood - Peripheral Venous Blood Culture - Preliminary NO GROWTH OBTAINED AFTER 24 HOURS, INCUBATION TO CONTINUE FOR 4 DAYS. Laboratory Results - last 24 hr 12/04/19 12/05/19 12/05/19 17:29 06:20 06:20 WBC 8.7 RBC 2.95 L Hgb 9.4 L Hct 30.8 L MCV 104.4 H MCH 31.9 MCHC 30.6 L RDW 22.1 H Plt Count 131 L MPV 8.3 Absolute Neuts (auto) 6.9 Neutrophils % 79.3 Lymphocytes % 8.4 D Monocytes % 9.2 Eosinophils % 1.9 D Basophils % 1.2 Nucleated RBC % 0 Sodium Potassium Chloride Carbon Dioxide Anion Gap BUN Creatinine Est GFR (CKD-EPI)AfAm Est GFR (CKD-EPI)NonAf POC Glucometer 182 Random Glucose Calcium Phosphorus Magnesium Total Bilirubin AST ALT Alkaline Phosphatase Total Protein Albumin Random Vancomycin 20.3 Blood Type Antibody Screen 12/05/19 12/05/19 12/05/19 06:20 06:20 06:54 WBC RBC Hgb Hct MCV MCH MCHC RDW Plt Count MPV Absolute Neuts (auto) Neutrophils % Lymphocytes % Monocytes % Eosinophils % Basophils % Nucleated RBC % Sodium 135 L Potassium 4.0 Chloride 103 Carbon Dioxide 22 Anion Gap 10 BUN 32.0 H Creatinine 5.7 H Est GFR (CKD-EPI)AfAm 8.71 Est GFR (CKD-EPI)NonAf 7.51 POC Glucometer 188 Random Glucose 202 H Calcium 7.9 L Phosphorus 5.3 H Magnesium 2.1 Total Bilirubin 0.9 AST 11 L ALT 13 Alkaline Phosphatase 220 H Total Protein 5.3 L Albumin 2.3 L Random Vancomycin Blood Type O POSITIVE Antibody Screen Negative 12/05/19 12:06 WBC RBC Hgb Hct MCV MCH MCHC RDW Plt Count MPV Absolute Neuts (auto) Neutrophils % Lymphocytes % Monocytes % Eosinophils % Basophils % Nucleated RBC % Sodium Potassium Chloride Carbon Dioxide Anion Gap BUN Creatinine Est GFR (CKD-EPI)AfAm Est GFR (CKD-EPI)NonAf POC Glucometer 236 Random Glucose Calcium Phosphorus Magnesium Total Bilirubin AST ALT Alkaline Phosphatase Total Protein Albumin Random Vancomycin Blood Type Antibody Screen Home Medications Medication Instructions Recorded Fluticasone Prop 0.05% Nasal 1 - 2 spray NS DAILY 02/03/19 [Flonase -] Atorvastatin Calcium 80 mg PO HS 06/09/19 Melatonin 5 mg PO PRN 06/15/19 Clopidogrel Bisulfate [Plavix] 75 mg PO DAILY #60 tablet 07/07/19 Carvedilol [Coreg -] 3.125 mg PO HS 07/26/19 Aspirin 81 mg PO DAILY 10/07/19 Cetirizine HCl [Zyrtec -] 10 mg PO HS 10/07/19 Pantoprazole Sodium 40 mg PO DAILY 10/07/19 Ropinirole HCl 0.5 mg PO HS 10/07/19 Insulin Detemir [Levemir Flextouch] 8 unit SQ DAILY #2 insuln.pen 10/09/19 Insulin Sliding Scale [Novolog 1 units SQ TIDAC #2 pen 10/09/19 Vial Sliding Scale -] Current Medications Generic Name Dose Route Start Last Admin Trade Name Freq PRN Reason Stop Dose Admin Acetaminophen 650 mg 12/04/19 17:57 Tylenol - PO Q6H PRN Fever Or Pain Aspirin 81 mg 12/05/19 10:00 Asa - PO DAILY [facility] Atorvastatin Calcium 80 mg 12/04/19 22:00 12/04/19 22:57 Lipitor - PO Not Given HS [facility] Carvedilol 3.125 mg 12/04/19 22:00 12/04/19 22:40 Coreg - PO Not Given HS [facility] Clopidogrel Bisulfate 75 mg 12/05/19 10:00 Plavix - PO DAILY [facility] Fluticasone Propionate 2 spray 12/05/19 10:00 Flonase - NS DAILY PRN ALLERGIES Gabapentin 100 mg 12/05/19 10:00 Neurontin - PO DAILY [facility] Heparin Sodium (Porcine) 5,000 unit 12/04/19 22:00 12/05/19 06:38 Heparin - SQ 5,000 unit TID [facility] Administration Aztreonam 0.5 gm/ Dextrose 50 mls @ 100 mls/hr 12/05/19 06:00 12/05/19 06:23 IVPB 100 mls/hr TID DEANNA Administration Protocol Metronidazole 500 mg in 100 mls @ 100 mls/hr 12/04/19 22:30 12/04/19 23:45 Flagyl 500mg Premixed Ivpb - IVPB 100 mls/hr TID DEANNA Administration Sodium Chloride 250 mls @ 3,000 mls/hr 12/05/19 12:24 Normal Saline - IV 12/06/19 12:23 PRN PRN Hypotension during Dialysis Insulin Aspart 1 vial 12/05/19 07:00 Novolog Vial Sliding Scale - SQ TIDAC [facility] Protocol Insulin Detemir 4 units 12/05/19 07:00 Levemir Vial SQ AM [facility]NA Loratadine 10 mg 12/04/19 22:00 12/04/19 22:57 Claritin - PO 10 mg HS [facility] Administration Melatonin 5 mg 12/04/19 18:15 Melatonin PO HS PRN INSOMNIA Pantoprazole Sodium 40 mg 12/05/19 10:00 Protonix - PO DAILY [facility] Ropinirole HCl 0.5 mg 12/04/19 22:45 12/04/19 22:46 Requip - PO 0.5 mg HS DEANNA Administration ASSESSMENT AND PLAN: 59 F L foot gangrene with necrosis, maggot infestation R toe amputations ESRD on HD via perm-a-cath HFpEF IDDM HTN HLD CAD Proteinuria RLS Insomnia Plan COnt. Aztreonam/Flagyl per ID recs for LE gangrene HD schedule as per renal Will need aggressive wound care, and L BKA per podiatry, likely w/ wound grafting, vascular following Strict glycemic control DVT ppx: Heparin SC Monitoring of electrolytes Surgery following ID following Renal following COVID pending (low suspicion)
[2019-12-05] MEDS: ASPIRIN 81 MG CHEWABLE TABLETS PO SCH (18:18)
[2019-12-05] MEDS: PANTOPRAZOLE 40 MG TABLET PO SCH (18:18)
[2019-12-05] MEDS: CLOPIDOGREL BISULFATE 75 MG TABLET (FP) PO SCH (18:18)
[2019-12-05] MEDS: GABAPENTIN 100 MG CAPSULE PO SCH (18:18)
[2019-12-05] MEDS ORDERED: ACETAMINOPHEN 1000 MG/100 ML VIAL (NON FORMULARY) IVPB ONE (20:17)
[2019-12-05] MEDS: rOPINIRole HCL 0.25 MG TABLET PO SCH (21:52)
[2019-12-05] MEDS: LORATADINE 10 MG TABLET PO SCH (21:52)
[2019-12-05] MEDS: ATORVASTATIN CA 80 MG TABLET (FP) PO SCH (21:52)
[2019-12-06] MEDS: AZTREONAM 0.5 GM in DEXTROSE 5%-WATER - 50 ML IVPB SCH ×3 (05:46→22:51)
[2019-12-06] MEDS: HEPARIN NA (PORCINE) 5,000 UNITS/ML 1ML VIAL SQ SCH ×3 (06:22→22:15)
[2019-12-06] MEDS: INSULIN SLIDING SCALE (NOVOLOG) 1 VIAL SQ SCH ×4 (06:31→17:17)
[2019-12-06] MEDS: INSULIN (LEVEMIR) 100 UNITS/ML UNITS SQ SCH ×2 (06:31→07:59)
[2019-12-06 07:51] LABS: BASO % 0.9 % (0-2.0); EOS % 2.1 % (0-4.5); HEMATOCRIT 29.8 % (32.4-45.2); LYMPH % 15.5 % (8-40); MCH 31.7 pg (25.7-33.7); MCHC 30.2 g/dl (32.0-36.0); MEAN PLT VOLUME 8.6 fl (7.5-11.1); MONO % 13.8 % (3.8-10.2); NEUT % 67.7 % (42.8-82.8); PLATELET COUNT 123 K/MM3 (134-434); RBC 2.84 M/mm3 (3.60-5.2); WHITE BLOOD COUNT 7.7 K/mm3 (4.0-10.0)
[2019-12-06] MEDS ORDERED: SODIUM CHLORIDE 250 ML IV PRN (08:00)
[2019-12-06 08:33] LABS: ALBUMIN 2.3 g/dl (3.4-5.0); BILIRUBIN,TOTAL 0.9 mg/dL (0.2-1); BLOOD UREA NITROGEN 19.7 mg/dL (7-18); CALCIUM 7.7 mg/dL (8.5-10.1); CREATININE 4.3 mg/dL (0.55-1.3); POTASSIUM 3.5 mmol/L (3.5-5.1); TOT PROT 5.5 g/dl (6.4-8.2)
[2019-12-06] MEDS: PANTOPRAZOLE 40 MG TABLET PO SCH (10:13)
[2019-12-06] MEDS: CLOPIDOGREL BISULFATE 75 MG TABLET (FP) PO SCH (10:13)
[2019-12-06] MEDS: ASPIRIN 81 MG CHEWABLE TABLETS PO SCH (10:13)
[2019-12-06] MEDS: GABAPENTIN 100 MG CAPSULE PO SCH (10:13)
[2019-12-06] MEDS ORDERED: SODIUM CHLORIDE 250 ML IV STA (10:31)
--- NOTE | 2019-12-06 11:34 | CONSULT ---
- Consultation REQUESTING PROVIDER: Vascular Surgery - Carlos Enrique Giraldo CONSULT REQUEST: We have been asked to surgically evaluate this patient for Left foot dry gangrene (toes & heel) PCP: Sesar Cochran MD HPI: Called to eval 59 yo female with PMHx as noted below. Presents to [facility] ED for evaluation of a left foot wound. Reports that the wound originated early in 2019. [facility]. States she hasn't received wound care in the last 2 weeks because she recently underwent a RUE AVG for HD. In the past week her wound has become necrotic with increased drainage. She removed her bandage this morning and found that the wound was infested with maggots. She recently underwent amputation of the second digit on her right foot ([place]). Denies n/v/f/c, CP palpitations, SOB or [place]. PMHx: ESRD on HD, DM, HTN, CHF, CAD, PVD, Left foot/heel mumified, Chronic right foot infection, Vertigo, COPD PSHx: RUE Acuseal AVG 11/24/19 Permacath 10/07/19 Aortogram, RLE angiogram, Right second toe amputation 09/15/19 Aortogram, LLE angiogram, Anterior tibial artery angioplasty 07/05/19 Rt knee Arthrosocopy (in her 20s secondary to chrondomalacia) CABG. Home Meds Fluticasone 0.05% 1-2 sprays NS daily Atorvastatin Calcium 80 mg PO HS Melatonin 5 mg PO PRN QHS Plavix 75 mg PO daily Coreg 3.125 mg PO HS ASA 81 mg PO Daily Zyrtec 10 mg PO HS Pantoprazole Sodium 40 mg PO Daily Ropinirole HCL 0.5 mg PO HS Insulin Detemir 8 units SQ daily Allergies PCNs -- anaphylaxis Prednisone Gluten Morphine Beta Blockers ROS: CONSTITUTIONAL: Absent: fever, chills, diaphoresis, generalized weakness, malaise, loss of appetite, weight change CARDIOVASCULAR: Absent: chest pain, syncope, palpitations, irregular heart rate, lightheadedness, peripheral edema RESPIRATORY: Absent: cough, shortness of breath, dyspnea with exertion, wheezing, stridor, hemoptysis GASTROINTESTINAL:Absent: abdominal pain, abdominal distension, nausea, vomiting, diarrhea, constipation, melena, hematochezia GENITOURINARY: Absent: dysuria, frequency, urgency, hesitancy, hematuria, flank pain, genital pain MUSCULOSKELETAL: Absent: myalgia, arthralgia, joint swelling, back pain, neck pain SKIN: Absent: rash, itching, pallor HEMATOLOGIC/IMMUNOLOGIC: Absent: easy bleeding, easy bruising, lymphadenopathy NEUROLOGIC: Absent: headache, focal weakness, paresthesias, dizziness, unsteady gait, seizure, mental status changes, PSYCHIATRIC: Absent: anxiety, depression, suicidal or homicidal ideation, hallucinations. PE: GENERAL: a&o. nad HEAD: nc. at. EYES: PERRL, sclera anicteric, conjunctiva clear. LUNGS: unlabored respirations on room air ABD: Soft, nontender, not distended UE: 2+ pulses, warm, well-perfused. No cyanosis. Cap refill <2 seconds. No peripheral edema. RUE AVG RLE: 2nd digit amp site to the level of MT head; no bone directly exposed but is deep, no erythema, mild edema, heel with diffused eschar/necrotic changes LLE: near entire foot mummifications, encompasses all digits along plantar foot and to the heel, mild erythema, diffuse edema, no POP or pedal pules noted b/l PSYCH: Cooperative. Good eye contact. Appropriate mood and affect. Last Vital Signs Temp Pulse Resp BP Pulse Ox 98.5 F 69 18 108/58 L 98 12/06/19 05:42 12/06/19 05:42 12/06/19 05:42 12/06/19 05:42 12/05/19 22:00 CBC, BMP 12/06/19 06:40 12/06/19 06:40 INR, PTT INR 1.32 (0.83-1.09) H 12/04/19 13:55 Blood Type Blood Type O POSITIVE 12/05/19 06:20 Serology Test 12/04/19 13:55 COVID-19 (RICHARD) Pending A/P: 59 yo female admitted with multiple medical problems. Known to Dr. Giraldo as he manages her LE wounds in [facility]. Patient has sever PAD w/ multiple angios in the past. Will attempt LLE angio to assess distal arterial flow for possible limb salvage procedure (bypass) vs. possible BKA. - cont medical management - local [facility] - medical optimization/clearance - tight glycemic control; ISS Above plan discussed with Dr. Giraldo and agrees Problem List - Problems (1) PAD (peripheral artery disease) Code(s): I73.9 - PERIPHERAL VASCULAR DISEASE, UNSPECIFIED (2) CKD (chronic kidney disease) requiring chronic dialysis Code(s): N18.6 - END STAGE RENAL DISEASE; Z99.2 - DEPENDENCE ON RENAL DIALYSIS (3) Coronary artery disease Code(s): I25.10 - ATHSCL HEART DISEASE OF [place] CORONARY ARTERY W/O ANG PCTRS Qualifiers: Coronary Disease-Associated Artery/Lesion type: [place] artery [place] vs. transplanted heart: [place] heart Associated angina: without angina Qualified Code(s): I25.10 - Atherosclerotic heart disease of [place] coronary artery without angina pectoris (4) Diabetes Code(s): E11.9 - TYPE 2 DIABETES MELLITUS WITHOUT COMPLICATIONS (5) ESRD (end stage renal disease) on dialysis Code(s): N18.6 - END STAGE RENAL DISEASE; Z99.2 - DEPENDENCE ON RENAL DIALYSIS Visit type - Case Type Case Type: ED Admission - Emergency Emergency Visit: Yes ED Registration Date: 12/04/19 Care time: The patient presented to the Emergency Department on the above date and was hospitalized for further evaluation of their emergent condition. - New patient This patient is new to me today: Yes Date on this admission: 12/06/19
--- NOTE | 2019-12-06 12:29 | PN ---
Progress Note, Physician History of Present Illness: stable no new issues wound being cleaned - Current Medication List Current Medications: Active Medications Acetaminophen (Tylenol -) 650 mg PO Q6H PRN PRN Reason: Fever Or Pain Aspirin (Asa -) 81 mg PO DAILY [facility] Last Admin: 12/06/19 10:13 Dose: 81 mg Documented by: Atorvastatin Calcium (Lipitor -) 80 mg PO HS [facility] Last Admin: 12/05/19 21:52 Dose: Not Given Documented by: Carvedilol (Coreg -) 3.125 mg PO HS [facility] Last Admin: 12/04/19 22:40 Dose: Not Given Documented by: Clopidogrel Bisulfate (Plavix -) 75 mg PO DAILY [facility] Last Admin: 12/06/19 10:13 Dose: 75 mg Documented by: Fluticasone Propionate (Flonase -) 2 spray NS DAILY PRN PRN Reason: ALLERGIES Gabapentin (Neurontin -) 100 mg PO DAILY [facility] Last Admin: 12/06/19 10:13 Dose: 100 mg Documented by: Heparin Sodium (Porcine) (Heparin -) 5,000 unit SQ TID [facility] Last Admin: 12/06/19 06:22 Dose: 5,000 unit Documented by: Aztreonam 0.5 gm/ Dextrose 50 mls @ 100 mls/hr IVPB TID [facility]; Protocol Last Admin: 12/06/19 05:46 Dose: 100 mls/hr Documented by: Metronidazole (Flagyl 500mg Premixed Ivpb -) 500 mg in 100 mls @ 100 mls/hr IVPB TID [facility] Last Admin: 12/06/19 06:23 Dose: 100 mls/hr Documented by: Insulin Aspart (Novolog Vial Sliding Scale -) 1 vial SQ TIDAC [facility]; Protocol Last Admin: 12/06/19 12:18 Dose: 2 units Documented by: Insulin Detemir (Levemir Vial) 4 units SQ AM [facility] Last Admin: 12/06/19 07:59 Dose: Not Given Documented by: Loratadine (Claritin -) 10 mg PO HS [facility] Last Admin: 12/05/19 21:52 Dose: 10 mg Documented by: Melatonin (Melatonin) 5 mg PO HS PRN PRN Reason: INSOMNIA Last Admin: 12/05/19 21:52 Dose: 5 mg Documented by: Pantoprazole Sodium (Protonix -) 40 mg PO DAILY [facility] Last Admin: 12/06/19 10:13 Dose: 40 mg Documented by: Ropinirole HCl (Requip -) 0.5 mg PO HS [facility] Last Admin: 12/05/19 21:52 Dose: 0.5 mg Documented by: - Objective Vital Signs: Vital Signs Temperature 97.5 F L 12/06/19 10:00 Pulse Rate 70 12/06/19 10:00 Respiratory Rate 20 12/06/19 10:00 Blood Pressure 68/42 L 12/06/19 10:00 O2 Sat by Pulse Oximetry (%) 98 12/06/19 10:00 Constitutional: Yes: No Distress, Calm Cardiovascular: Yes: S1, S2 Respiratory: Yes: Regular, CTA Bilaterally Gastrointestinal: Yes: Normal Bowel Sounds, Soft Musculoskeletal: Yes: WNL Extremities: Yes: Other Neurological: Yes: Alert, Oriented Psychiatric: Yes: Alert, Oriented Labs: CBC, BMP 12/06/19 06:40 12/06/19 06:40 INR, PTT INR 1.32 (0.83-1.09) H 12/04/19 13:55 Assessment/Plan 59 yo F with PMH of ESRD (M/W/F), DM, HTN, CAD( S/P CABG), HFrEF( S/P ICD), PVD (S/P right metatarsal amputation) presents to ED for worsening L foot infection. cellulitis gangrene of the foot dm htn hferp esrd plan abx wound care rest as per the team
--- NOTE | 2019-12-06 12:46 | PN ---
Progress Note (short form) - Note Progress Note: Podiatry F/U: Seen/evaluated at bedside NAD. Pain controlled, denies F/V/N/C/SOB/CP. Afebrile. Admitted for worsening gangrenous changes left foot with maggots. Notes some redness to the forefoot. BAILEE: L foot: pedal pulses non-palpable, TG warm-cool distally, CFT absent to all digits. There is dry gangrenous changes with mummification of all digits. There is a necrotic forefoot ulcer down to capsule. There is gangrenous changes to the left plantar arch. There is a dry heel eschar. There is erythema to the dorsal midfoot. There is tenderness to palpation. R foot: there is a second MTPJ diabetic arterial ulcer with fibrotic base, second metatarsal stump palpable, no purulence, no fluctuance, no streaking ascending cellulitis, no soft tissue crepitus, no signs of active infection. There is a dry heel eschar, stable. Imp: 59 year old diabetic, severe PVD female with worsening gangrene and cellulitis left foot 1. IV abx per ID 2. Local care with betadine to all areas bilateral feet 3. For LLE angio with Dr. Giraldo on to evaluate peripheral flow. Will likely need BKA. 4. Will follow. Mikael Copeland DPM
--- NOTE | 2019-12-06 13:30 | PN ---
Progress Note (short form) - Note Progress Note: cc: foot wound s: no chest pain, palps, dizziness, dyspnea Current Medications Generic Name Dose Route Start Last Admin Trade Name Freq PRN Reason Stop Dose Admin Acetaminophen 650 mg 12/04/19 17:57 Tylenol - PO Q6H PRN Fever Or Pain Aspirin 81 mg 12/05/19 10:00 12/06/19 10:13 Asa - PO 81 mg DAILY [facility]ANNA Administration Atorvastatin Calcium 80 mg 12/04/19 22:00 12/05/19 21:52 Lipitor - PO Not Given HS [facility] Carvedilol 3.125 mg 12/04/19 22:00 12/04/19 22:40 Coreg - PO Not Given HS [facility] Clopidogrel Bisulfate 75 mg 12/05/19 10:00 12/06/19 10:13 Plavix - PO 75 mg DAILY [facility] Administration Fluticasone Propionate 2 spray 12/05/19 10:00 Flonase - NS DAILY PRN ALLERGIES Gabapentin 100 mg 12/05/19 10:00 12/06/19 10:13 Neurontin - PO 100 mg DAILY [facility] Administration Heparin Sodium (Porcine) 5,000 unit 12/04/19 22:00 12/06/19 06:22 Heparin - SQ 5,000 unit TID [facility] Administration Aztreonam 0.5 gm/ Dextrose 50 mls @ 100 mls/hr 12/05/19 06:00 12/06/19 05:46 IVPB 100 mls/hr TID [facility] Administration Protocol Metronidazole 500 mg in 100 mls @ 100 mls/hr 12/04/19 22:30 12/06/19 06:23 Flagyl 500mg Premixed Ivpb - IVPB 100 mls/hr TID [facility] Administration Insulin Aspart 1 vial 12/05/19 07:00 12/06/19 12:18 Novolog Vial Sliding Scale - SQ 2 units TIDAC [facility] Administration Protocol Insulin Detemir 4 units 12/05/19 07:00 12/06/19 07:59 Levemir Vial SQ Not Given AM [facility] Loratadine 10 mg 12/04/19 22:00 12/05/19 21:52 Claritin - PO 10 mg HS [facility] Administration Melatonin 5 mg 12/04/19 18:15 12/05/19 21:52 Melatonin PO 5 mg HS PRN Administration INSOMNIA Pantoprazole Sodium 40 mg 12/05/19 10:00 12/06/19 10:13 Protonix - PO 40 mg DAILY [facility] Administration Ropinirole HCl 0.5 mg 12/04/19 22:45 12/05/19 21:52 Requip - PO 0.5 mg HS [facility] Administration Vital Signs Period Temp Pulse Resp BP Sys/Horowitz Pulse Ox Last 24 Hr 97.5 F-99.0 F 69-83 16-20 68-145/31-89 97-100 Constitutional: Yes: No Distress, Calm Eyes: Yes: Conjunctiva Clear, EOM Intact HENT: Yes: Atraumatic, Normocephalic Neck: Yes: Supple, Trachea Midline Respiratory: Yes: Regular, CTA Bilaterally Gastrointestinal: Yes: Normal Bowel Sounds, Soft Cardiovascular: Yes: Regular Rate and Rhythm JVD: No Heart Sounds: Yes: S1, S2 Extremities: No: Cold Edema: No, +foot gangrene Neurological: Yes: Alert, Oriented Psychiatric: No: Agitated no jaundice diaphoresis EKG: sinus, nl intervals, lvh with repol, similar to prior echo 03/2019 tds, mod to sev MR, mild to mod ao sclerosis, severe TR, severely reduced LV function, RVSP >60 mmHg, LV/RV not well visualized, mild to mod AR mibi 03/2019 mod size inferolateral infarct with mild марина-infarct ischemia, global hypokinesis, EF 13% cxr: no chf a/p: 59F h/o CAD s/p CABG, chronic systolic HF s/p ICD, DM, ESRD on HD chronic L foot wound p/w worsening foot wound. chronic systolic HF, s/p ICD - appears euvolemic - volume management per renal with HD - continue carvedilol, additional chf meds limited by low BP in the past CAD s/p CABG - stable, no angina, no signs acs - cont statin, asa, bb - recent mibi w/o significant ischemia DM - manage per primary pad, non healing wound, gangrene: -possible bka planned -no cardiac contraindications to bka, lower ext angio
--- NOTE | 2019-12-06 14:12 | PN ---
Teaching Attending Note Name of Resident: Lupis Farrell ATTENDING PHYSICIAN STATEMENT I saw and evaluated the patient. I reviewed the resident's note and discussed the case with the resident. I agree with the resident's findings and plan as documented. SUBJECTIVE: pt seen and examined at bedside, emotional, in mild distress due to abdominal pain OBJECTIVE: Last Vital Signs Temp Pulse Resp BP Pulse Ox 98.0 F 75 20 97/58 L 96 12/06/19 13:57 12/06/19 13:57 12/06/19 13:57 12/06/19 13:57 12/06/19 13:57 GENERAL: Awake, alert, and fully oriented, in no acute distress. HEAD: Normal with no signs of trauma. EYES: Pupils equal, round and reactive to light, extraocular movements intact, sclera anicteric, conjunctiva clear. No lid lag. EARS, NOSE, THROAT: Ears normal, nares patent, oropharynx clear without exudates. Moist mucous membranes. NECK: Normal range of motion, supple without lymphadenopathy, JVD, or masses. LUNGS: fine rales bilaterally. No accessory muscle use. HEART: Regular rate and rhythm, normal S1 and S2 with 3/6 systolic murmur @ LSB, rub or gallop. ABDOMEN: Soft, nontender, not distended, normoactive bowel sounds, no guarding, no rebound, no masses. No hepatomegaly or splenomegaly. MUSCULOSKELETAL: Normal range of motion at all joints. No bony deformities or tenderness. No CVA tenderness. UPPER EXTREMITIES: 2+ pulses, warm, well-perfused. No cyanosis. No clubbing. No peripheral edema. LOWER EXTREMITIES: No peripheral edema, unable to feel dorsalis pedis bilaterally, posterior tibial +1 Rt, unable to feel on left, both legs warm, amputated rt 2nd toe NEUROLOGICAL: Cranial nerves II-XII intact. Normal speech. Normal gait. sensory loss below mid cam bilaterally PSYCHIATRIC: Cooperative. Good eye contact. Appropriate mood and affect. SKIN: bilaterally dry gangrene on both feet, CBCD WBC 7.7 K/mm3 (4.0-10.0) 12/06/19 06:40 RBC 2.84 M/mm3 (3.60-5.2) L 12/06/19 06:40 Hgb 9.0 GM/dL (10.7-15.3) L 12/06/19 06:40 Hct 29.8 % (32.4-45.2) L 12/06/19 06:40 MCV 105.0 fl (80-96) H 12/06/19 06:40 MCHC 30.2 g/dl (32.0-36.0) L 12/06/19 06:40 RDW 22.0 % (11.6-15.6) H 12/06/19 06:40 Plt Count 123 K/MM3 (134-434) L 12/06/19 06:40 MPV 8.6 fl (7.5-11.1) 12/06/19 06:40 CMP Sodium 142 mmol/L (136-145) 12/06/19 06:40 Potassium 3.5 mmol/L (3.5-5.1) 12/06/19 06:40 Chloride 104 mmol/L (98-107) 12/06/19 06:40 Carbon Dioxide 28 mmol/L (21-32) 12/06/19 06:40 Anion Gap 11 MMOL/L (8-16) 12/06/19 06:40 BUN 19.7 mg/dL (7-18) H 12/06/19 06:40 Creatinine 4.3 mg/dL (0.55-1.3) H 12/06/19 06:40 Calcium 7.7 mg/dL (8.5-10.1) L 12/06/19 06:40 Total Bilirubin 0.9 mg/dL (0.2-1) 12/06/19 06:40 AST 11 U/L (15-37) L 12/06/19 06:40 ALT 11 U/L (13-61) L 12/06/19 06:40 Alkaline Phosphatase 255 U/L (45-117) H 12/06/19 06:40 Total Protein 5.5 g/dl (6.4-8.2) L 12/06/19 06:40 Albumin 2.3 g/dl (3.4-5.0) L 12/06/19 06:40 ASSESSMENT AND PLAN: # sepsis due to Diabetic foot ulcer, cellulitis and gangrene - uncontrolled DM (last noted HgA1c 9.5), under wound care (seen last week) - pain management as indicated - IV vancomycin (allergic to penicillin), aztreonam, - had episode of low BP this AM, pt was asymptomatic, 250cc bolus NS given - no fever, non tachy, WBC trended down - pt in agreement with amputation, vascular surgeon and podiatry on board, tentative plan this week - preliminary cultures noted - need for surgery, risks and benefits discussed with patient who voiced verbal understanding - street openings inspector cleared pt from cardiac standpoint for surgery - ID, vascular surgeon and podiatry consult requested. #ESRD on HD - AVG graft place 11/23, Rt. port-a-cath in place - F HD - bacteriology professor consult - renal dose of medication # DM with Diabetic neuropathy - ISS +_levemer - gabapentin 100mg QD # HFrEF, CAD - on ICD - cardiology consult, strict I/O # DVT prophylaxis, fall precautions.
--- NOTE | 2019-12-06 14:15 | PN ---
Progress Note, Physician History of Present Illness: Pt seen and examined at bedside. She is awake and alert. SHe denies fevers or chills. - Current Medication List Current Medications: Active Medications Acetaminophen (Tylenol -) 650 mg PO Q6H PRN PRN Reason: Fever Or Pain Aspirin (Asa -) 81 mg PO DAILY [facility] Last Admin: 12/06/19 10:13 Dose: 81 mg Documented by: Atorvastatin Calcium (Lipitor -) 80 mg PO HS [facility] Last Admin: 12/05/19 21:52 Dose: Not Given Documented by: Carvedilol (Coreg -) 3.125 mg PO HS [facility] Last Admin: 12/04/19 22:40 Dose: Not Given Documented by: Clopidogrel Bisulfate (Plavix -) 75 mg PO DAILY [facility] Last Admin: 12/06/19 10:13 Dose: 75 mg Documented by: Fluticasone Propionate (Flonase -) 2 spray NS DAILY PRN PRN Reason: ALLERGIES Gabapentin (Neurontin -) 100 mg PO DAILY [facility] Last Admin: 12/06/19 10:13 Dose: 100 mg Documented by: Heparin Sodium (Porcine) (Heparin -) 5,000 unit SQ TID [facility] Last Admin: 12/06/19 06:22 Dose: 5,000 unit Documented by: Aztreonam 0.5 gm/ Dextrose 50 mls @ 100 mls/hr IVPB TID [facility]; Protocol Last Admin: 12/06/19 05:46 Dose: 100 mls/hr Documented by: Metronidazole (Flagyl 500mg Premixed Ivpb -) 500 mg in 100 mls @ 100 mls/hr IVPB TID [facility] Last Admin: 12/06/19 06:23 Dose: 100 mls/hr Documented by: Insulin Aspart (Novolog Vial Sliding Scale -) 1 vial SQ TIDAC [facility]; Protocol Last Admin: 12/06/19 12:18 Dose: 2 units Documented by: Insulin Detemir (Levemir Vial) 4 units SQ AM [facility] Last Admin: 12/06/19 07:59 Dose: Not Given Documented by: Lidocaine/Prilocaine (Emla -) 1 applic TP DAILY PRN PRN Reason: PAIN Loratadine (Claritin -) 10 mg PO HS [facility] Last Admin: 12/05/19 21:52 Dose: 10 mg Documented by: Melatonin (Melatonin) 5 mg PO HS PRN PRN Reason: INSOMNIA Last Admin: 12/05/19 21:52 Dose: 5 mg Documented by: Pantoprazole Sodium (Protonix -) 40 mg PO DAILY [facility] Last Admin: 12/06/19 10:13 Dose: 40 mg Documented by: Ropinirole HCl (Requip -) 0.5 mg PO HS [facility] Last Admin: 12/05/19 21:52 Dose: 0.5 mg Documented by: - Objective Vital Signs: Vital Signs Temperature 98.0 F 12/06/19 13:57 Pulse Rate 75 12/06/19 13:57 Respiratory Rate 20 12/06/19 13:57 Blood Pressure 97/58 L 12/06/19 13:57 O2 Sat by Pulse Oximetry (%) 96 12/06/19 13:57 Constitutional: Yes: Calm Eyes: Yes: Conjunctiva Clear HENT: Yes: Atraumatic Neck: Yes: Supple Cardiovascular: Yes: S1, S2 Respiratory: Yes: CTA Bilaterally Gastrointestinal: Yes: Soft Genitourinary: Yes: WNL Edema: No Wound/Incision: Yes: Dressing Dry and Intact Neurological: Yes: Oriented Psychiatric: Yes: Oriented Labs: CBC, BMP 12/06/19 06:40 12/06/19 06:40 INR, PTT INR 1.32 (0.83-1.09) H 12/04/19 13:55 Problem List - Problems (1) ESRD (end stage renal disease) Code(s): N18.6 - END STAGE RENAL DISEASE (2) Cellulitis Code(s): L03.90 - CELLULITIS, UNSPECIFIED Qualifiers: Site of cellulitis: extremity Site of cellulitis of extremity: lower extremity Laterality: unspecified laterality Qualified Code(s): L03.119 - Cellulitis of unspecified part of limb Assessment/Plan Current Medications Generic Name Dose Route Start Last Admin Trade Name Freq PRN Reason Stop Dose Admin Acetaminophen 650 mg 12/04/19 17:57 Tylenol - PO Q6H PRN Fever Or Pain Aspirin 81 mg 12/05/19 10:00 12/06/19 10:13 Asa - PO 81 mg DAILY [facility] Administration Atorvastatin Calcium 80 mg 12/04/19 22:00 12/05/19 21:52 Lipitor - PO Not Given HS [facility] Carvedilol 3.125 mg 12/04/19 22:00 12/04/19 22:40 Coreg - PO Not Given HS [facility] Clopidogrel Bisulfate 75 mg 12/05/19 10:00 12/06/19 10:13 Plavix - PO 75 mg DAILY [facility] Administration Epoetin Gabriel 12,000 unit 12/07/19 14:11 Procrit - IVPUSH 12/07/19 14:12 ONCE ONE Fluticasone Propionate 2 spray 12/05/19 10:00 Flonase - NS DAILY PRN ALLERGIES Gabapentin 100 mg 12/05/19 10:00 12/06/19 10:13 Neurontin - PO 100 mg DAILY [facility] Administration Heparin Sodium (Porcine) 5,000 unit 12/04/19 22:00 12/06/19 06:22 Heparin - SQ 5,000 unit TID [facility] Administration Heparin Sodium (Porcine) 1,000 unit 12/07/19 14:11 Heparin - IVPUSH 12/07/19 14:12 ONCE ONE Heparin Sodium (Porcine) 500 unit 12/07/19 14:15 Heparin - IVPUSH 12/07/19 16:16 Q1H [facility] Aztreonam 0.5 gm/ Dextrose 50 mls @ 100 mls/hr 12/05/19 06:00 12/06/19 05:46 IVPB 100 mls/hr TID [facility] Administration Protocol Metronidazole 500 mg in 100 mls @ 100 mls/hr 12/04/19 22:30 12/06/19 06:23 Flagyl 500mg Premixed Ivpb - IVPB 100 mls/hr TID [facility] Administration Sodium Chloride 250 mls @ 3,000 mls/hr 12/06/19 14:11 Normal Saline - IV 12/07/19 14:11 PRN PRN Hypotension during Dialysis Insulin Aspart 1 vial 12/05/19 07:00 12/06/19 12:18 Novolog Vial Sliding Scale - SQ 2 units TIDAC [facility] Administration Protocol Insulin Detemir 4 units 12/05/19 07:00 12/06/19 07:59 Levemir Vial SQ Not Given AM [facility] Lidocaine/Prilocaine 1 applic 12/06/19 14:09 Emla - TP DAILY PRN PAIN Loratadine 10 mg 12/04/19 22:00 12/05/19 21:52 Claritin - PO 10 mg HS [facility] Administration Melatonin 5 mg 12/04/19 18:15 12/05/19 21:52 Melatonin PO 5 mg HS PRN Administration INSOMNIA Pantoprazole Sodium 40 mg 12/05/19 10:00 12/06/19 10:13 Protonix - PO 40 mg DAILY [facility] Administration Ropinirole HCl 0.5 mg 12/04/19 22:45 12/05/19 21:52 Requip - PO 0.5 mg HS [facility] Administration Impression 1. ESRD 2. CHF 3. DM 4. HTN 5. hyperlipidemia 6. nephrotic range proteinuria 7. CAD 8. lower ext infection Plan - HD tomorrow - orders written - vascular follow up - graft used successfully yesterday - discussed with podiatry - renal diet - epogen for anemia with HD
--- NOTE | 2019-12-06 15:53 | PN ---
Physical Exam: SUBJECTIVE: Patient seen and examined. No acute events overnight. OBJECTIVE: Vital Signs Temperature 98.0 F 12/06/19 13:57 Pulse Rate 75 12/06/19 13:57 Respiratory Rate 12/06/19 13:57 Blood Pressure 97/58 L 12/06/19 13:57 O2 Sat by Pulse Oximetry (%) 96 12/06/19 13:57 GENERAL: The patient is awake, alert, and fully oriented, in no acute distress. NECK: Trachea midline, full range of motion, supple. LUNGS: Breath sounds equal, clear to auscultation bilaterally HEART: Regular rate and rhythm, S1, S2 ABDOMEN: Soft, nontender, nondistended, normoactive bowel sounds EXTREMITIES: no palpable pedal pulses bilaterally; RLE: 2nd digit amputated with ulceration but no erythema, right heel with diffuse eschar. LLE: all digits with ulcerations/eschar, extending to dorsum of left foot NEUROLOGICAL: Cranial nerves II through XII grossly intact. Normal speech PSYCH: Normal mood, normal affect. SKIN: Warm, dry, normal turgor Laboratory Results - last 24 hr 12/04/19 12/05/19 12/05/19 13:55 18:08 21:54 WBC RBC Hgb Hct MCV MCH MCHC RDW Plt Count MPV Absolute Neuts (auto) Neutrophils % Lymphocytes % Monocytes % Eosinophils % Basophils % Nucleated RBC % Sodium Potassium Chloride Carbon Dioxide Anion Gap BUN Creatinine Est GFR (CKD-EPI)AfAm Est GFR (CKD-EPI)NonAf POC Glucometer 148 245 Random Glucose Calcium Total Bilirubin AST ALT Alkaline Phosphatase Total Protein Albumin Vitamin B12 Serum Folate COVID-19 (RICHARD) Not detected 12/06/19 12/06/19 12/06/19 06:30 06:40 06:40 WBC 7.7 RBC 2.84 L Hgb 9.0 L Hct 29.8 L MCV 105.0 H MCH 31.7 MCHC 30.2 L RDW 22.0 H Plt Count 123 L MPV 8.6 Absolute Neuts (auto) 5.2 Neutrophils % 67.7 Lymphocytes % 15.5 D Monocytes % 13.8 H Eosinophils % 2.1 Basophils % 0.9 Nucleated RBC % 0 Sodium 142 Potassium 3.5 Chloride 104 Carbon Dioxide 28 Anion Gap 11 BUN 19.7 H Creatinine 4.3 H Est GFR (CKD-EPI)AfAm 12.24 Est GFR (CKD-EPI)NonAf 10.56 POC Glucometer 181 Random Glucose 202 H Calcium 7.7 L Total Bilirubin 0.9 AST 11 L ALT 11 L Alkaline Phosphatase 255 H Total Protein 5.5 L Albumin 2.3 L Vitamin B12 1580 H Serum Folate 38 H COVID-19 (RICHARD) 12/06/19 11:40 WBC RBC Hgb Hct MCV MCH MCHC RDW Plt Count MPV Absolute Neuts (auto) Neutrophils % Lymphocytes % Monocytes % Eosinophils % Basophils % Nucleated RBC % Sodium Potassium Chloride Carbon Dioxide Anion Gap BUN Creatinine Est GFR (CKD-EPI)AfAm Est GFR (CKD-EPI)NonAf POC Glucometer 155 Random Glucose Calcium Total Bilirubin AST ALT Alkaline Phosphatase Total Protein Albumin Vitamin B12 Serum Folate COVID- (RICHARD) Active Medications Generic Name Dose Route Start Last Admin Trade Name Freq PRN Reason Stop Dose Admin Acetaminophen 650 mg 12/04/19 17:57 Tylenol - PO Q6H PRN Fever Or Pain Aspirin 81 mg 12/05/19 10:00 12/06/19 10:13 Asa - PO 81 mg DAILY [facility] Administration Atorvastatin Calcium 80 mg 12/04/19 22:00 12/05/19 21:52 Lipitor - PO Not Given HS [facility] Carvedilol 3.125 mg 12/04/19 22:00 12/04/19 22:40 Coreg - PO Not Given HS [facility] Clopidogrel Bisulfate 75 mg 12/05/19 10:00 12/06/19 10:13 Plavix - PO 75 mg DAILY [facility] Administration Epoetin Gabriel 12,000 unit 12/07/19 14:11 Procrit - IVPUSH 12/07/19 14:12 ONCE ONE Fluticasone Propionate 2 spray 12/05/19 10:00 Flonase - NS DAILY PRN ALLERGIES Gabapentin 100 mg 12/05/19 10:00 12/06/19 10:13 Neurontin - PO 100 mg DAILY [facility] Administration Heparin Sodium (Porcine) 5,000 unit 12/04/19 22:00 12/06/19 14:32 Heparin - SQ 5,000 unit TID [facility] Administration Heparin Sodium (Porcine) 1,000 unit 12/07/19 14:11 Heparin - IVPUSH 12/07/19 14:12 ONCE ONE Heparin Sodium (Porcine) 500 unit 12/07/19 14:15 Heparin - IVPUSH 12/07/19 16:16 Q1H [facility] Aztreonam 0.5 gm/ Dextrose 50 mls @ 100 mls/hr 12/05/19 06:00 12/06/19 14:32 IVPB 100 mls/hr TID [facility] Administration Protocol Metronidazole 500 mg in 100 mls @ 100 mls/hr 12/04/19 22:30 12/06/19 14:33 Flagyl 500mg Premixed Ivpb - IVPB 100 mls/hr TID [facility] Administration Sodium Chloride 250 mls @ 3,000 mls/hr 12/06/19 14:11 Normal Saline - IV 12/07/19 14:11 PRN PRN Hypotension during Dialysis Insulin Aspart 1 vial 12/05/19 07:00 12/06/19 12:18 Novolog Vial Sliding Scale - SQ 2 units TIDAC [facility] Administration Protocol Insulin Detemir 4 units 12/05/19 07:00 12/06/19 07:59 Levemir Vial SQ Not Given AM [facility] Lidocaine/Prilocaine 1 applic 12/06/19 14:09 Emla - TP DAILY PRN PAIN Loratadine 10 mg 12/04/19 22:00 12/05/19 21:52 Claritin - PO 10 mg HS [facility] Administration Melatonin 5 mg 12/04/19 18:15 12/05/19 21:52 Melatonin PO 5 mg HS PRN Administration INSOMNIA Pantoprazole Sodium 40 mg 12/05/19 10:00 12/06/19 10:13 Protonix - PO 40 mg DAILY [facility] Administration Ropinirole HCl 0.5 mg 12/04/19 22:45 12/05/19 21:52 Requip - PO 0.5 mg HS [facility]NA Administration ASSESSMENT/PLAN: Patient is a 59 year old female with past medical history of HTN, PAD, CAD(s/p CABG), HFrEF(s/p ICD), ESRD (MWF), DM, right second toe amputation and chronic wound drainage on her left foot since early May, presented to the ED on 12/03 with worsening cellulitis of the foot with the presence of maggots that she had noticed that morning. She had been receiving routine wound care up until 2 weeks ago when she had an AV graft placement done in the right arm. #Sepsis 2/2 Gangrene, Cellulitis (b/l) L>R - Aztreonam 0.5g TID and flagyl 500mg TID - wound cx polymicrobial - blood cx no growth to date - XR foot, Lt - May be a soft tissue ulceration by the MCP joints in the lateral view. Osteomyelitis can't be ruled out - ID (Dr. Charles) consulted, Vascular (Dr. Giraldo), and Podiatry (Dr. Copeland) following. Recommendations appreciated - Local care with betadine to all areas bilateral feet - f/u CTA with LE runoff. Would need to assess distal flow for viability - For LLE angio with Dr. Giraldo on to evaluate peripheral flow. Will likely need BKA. - Cardiology (Dr. Alford) consulted for cardiac clearance. - no cardiac contraindications to bka - tylenol for pain #DM - A1C 9.5 (from 10/2019) - Insulin sliding scale implemented - BGM ACHS - Gabapentin for neuropathy #HTN - c/w coreg #PAD - No claudications, absent pedal pulses - C/w with DAPT and statin #HFrEF - BNP >175,000. CXR reviewed. - Cardio (Dr. Alford) consulted. Recommendations appreciated - C/w Statin, plavix, asa, coreg - EKG NSR, similar to prior - 03/2019 Echo EF 13%, patient isn't experiencing sx associated with an exacerbation (orthopnea, NPD, SOB, etc), CXR neg for CHF - I/Os, daily weights, monitor for change in sx, manage with HD #ESRD ( M,W, F) - Nephrology (Dr. Pond) consulted. - Dialysis today (MWF) - AV graft placed 11/24/2019 #FEN -Not on standing fluids -Electrolytes wnl, will continue to monitor -Renal diet #Prophylaxis -Heparin 5,000 U -Pantoprazole 40mg QD #Disposition -Will continue to monitor patient on MS Visit type - Emergency Visit Emergency Visit: Yes ED Registration Date: 12/04/19 Care time: The patient presented to the Emergency Department on the above date and was hospitalized for further evaluation of their emergent condition. - New Patient This patient is new to me today: No - Critical Care Critical Care patient: No ATTENDING PHYSICIAN STATEMENT I saw and evaluated the patient. I reviewed the resident's note and discussed the case with the resident. I agree with the resident's findings and plan as documented. SUBJECTIVE: OBJECTIVE: ASSESSMENT AND PLAN:
[2019-12-06] MEDS ORDERED: ACETAMINOPHEN 1000 MG/100 ML VIAL (NON FORMULARY) IVPB ONE (21:32)
[2019-12-06] MEDS: LORATADINE 10 MG TABLET PO SCH (22:16)
[2019-12-06] MEDS: rOPINIRole HCL 0.25 MG TABLET PO SCH (22:16)
[2019-12-06] MEDS: CARVEDILOL 3.125 MG TABLET (FP) PO SCH (22:16)
[2019-12-06] MEDS: ATORVASTATIN CA 80 MG TABLET (FP) PO SCH ×2 (22:16→22:24)
[2019-12-07] MEDS: HEPARIN NA (PORCINE) 5,000 UNITS/ML 1ML VIAL SQ SCH ×3 (05:32→22:24)
[2019-12-07] MEDS: AZTREONAM 0.5 GM in DEXTROSE 5%-WATER - 50 ML IVPB SCH ×3 (05:54→23:56)
[2019-12-07] MEDS: INSULIN SLIDING SCALE (NOVOLOG) 1 VIAL SQ SCH ×3 (06:29→17:17)
[2019-12-07] MEDS: INSULIN (LEVEMIR) 100 UNITS/ML UNITS SQ SCH (06:34)
[2019-12-07] MEDS ORDERED: EPOETIN ALFA-EPBX 10,000 UNIT, EPOETIN ALFA-EPBX 2,000 UNIT IVPUSH ONE (08:00)
[2019-12-07] MEDS ORDERED: HEPARIN NA (PORCINE) 5,000 UNITS/ML 1ML VIAL IVPUSH ONE (08:00)
--- NOTE | 2019-12-07 09:03 | PN ---
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 Need to assess distal flow for viability... recommending BKA. Problem List - Problems (1) PAD (peripheral artery disease) Code(s): I73.9 - PERIPHERAL VASCULAR DISEASE, UNSPECIFIED (2) CKD (chronic kidney disease) requiring chronic dialysis Code(s): N18.6 - END STAGE RENAL DISEASE; Z99.2 - DEPENDENCE ON RENAL DIALYSIS (3) Coronary artery disease Code(s): I25.10 - ATHSCL HEART DISEASE OF [place] CORONARY ARTERY W/O ANG PCTRS Qualifiers: Coronary Disease-Associated Artery/Lesion type: [place] artery [place] vs. transplanted heart: [place] heart Associated angina: without angina Qualified Code(s): I25.10 - Atherosclerotic heart disease of [place] coronary artery without angina pectoris (4) Diabetes Code(s): E11.9 - TYPE 2 DIABETES MELLITUS WITHOUT COMPLICATIONS (5) ESRD (end stage renal disease) on dialysis Code(s): N18.6 - END STAGE RENAL DISEASE; Z99.2 - DEPENDENCE ON RENAL DIALYSIS
[2019-12-07] MEDS: LIDOCAINE 2.5%/PRILOCAINE 2.5% (5 Gram/TUBE) TP PRN (09:18)
[2019-12-07 11:37] LABS: HEMATOCRIT 30.4 % (32.4-45.2); HEMOGLOBIN 9.3 GM/dL (10.7-15.3); MCH 32.1 pg (25.7-33.7); MCHC 30.5 g/dl (32.0-36.0); MEAN CELL VOLUME 105.5 fl (80-96); MEAN PLT VOLUME 9.1 fl (7.5-11.1); PLATELET COUNT 115 K/MM3 (134-434); RBC 2.88 M/mm3 (3.60-5.2); RDW 21.9 % (11.6-15.6); WHITE BLOOD COUNT 6.8 K/mm3 (4.0-10.0)
[2019-12-07 12:04] LABS: ALBUMIN 2.1 g/dl (3.4-5.0); BILIRUBIN,TOTAL 0.9 mg/dL (0.2-1); BLOOD UREA NITROGEN 29.8 mg/dL (7-18); CALCIUM 7.6 mg/dL (8.5-10.1); CREATININE 5.1 mg/dL (0.55-1.3); POTASSIUM 3.4 mmol/L (3.5-5.1); TOT PROT 5.1 g/dl (6.4-8.2)
--- NOTE | 2019-12-07 12:07 | PN ---
Teaching Attending Note Name of Resident: Lupis Farrell ATTENDING PHYSICIAN STATEMENT I saw and evaluated the patient. I reviewed the resident's note and discussed the case with the resident. I agree with the resident's findings and plan as documented. SUBJECTIVE: pt seen and examined at bedside, just returned from CTA, denies complaints, appears in better emotional status OBJECTIVE: Last Vital Signs Temp Pulse Resp BP Pulse Ox 98.5 F 72 18 103/51 L 96 12/07/19 11:00 12/07/19 11:40 12/07/19 11:40 12/07/19 11:40 12/06/19 22:00 GENERAL: Awake, alert, and fully oriented, in no acute distress. HEAD: Normal with no signs of trauma. EYES: Pupils equal, round and reactive to light, extraocular movements intact, sclera anicteric, conjunctiva clear. No lid lag. EARS, NOSE, THROAT: Ears normal, nares patent, oropharynx clear without exudates. Moist mucous membranes. NECK: Normal range of motion, supple without lymphadenopathy, JVD, or masses. LUNGS: fine rales bilaterally. No accessory muscle use. HEART: Regular rate and rhythm, normal S1 and S2 with 3/6 systolic murmur @ LSB, rub or gallop. ABDOMEN: Soft, nontender, not distended, normoactive bowel sounds, no guarding, no rebound, no masses. No hepatomegaly or splenomegaly. MUSCULOSKELETAL: Normal range of motion at all joints. No bony deformities or tenderness. No CVA tenderness. UPPER EXTREMITIES: 2+ pulses, warm, well-perfused. No cyanosis. No clubbing. No peripheral edema. LOWER EXTREMITIES: No peripheral edema, unable to feel dorsalis pedis bilaterally, posterior tibial +1 Rt, unable to feel on left, both legs warm, amputated rt 2nd toe NEUROLOGICAL: Cranial nerves II-XII intact. Normal speech. Normal gait. sensory loss below mid cam bilaterally PSYCHIATRIC: Cooperative. Good eye contact. Appropriate mood and affect. SKIN: bilaterally dry gangrene on both feet, CBCD WBC 6.8 K/mm3 (4.0-10.0) 12/07/19 11:10 RBC 2.88 M/mm3 (3.60-5.2) L 12/07/19 11:10 Hgb 9.3 GM/dL (10.7-15.3) L 12/07/19 11:10 Hct 30.4 % (32.4-45.2) L 12/07/19 11:10 MCV 105.5 fl (80-96) H 12/07/19 11:10 MCHC 30.5 g/dl (32.0-36.0) L 12/07/19 11:10 RDW 21.9 % (11.6-15.6) H 12/07/19 11:10 Plt Count 115 K/MM3 (134-434) L 12/07/19 11:10 MPV 9.1 fl (7.5-11.1) 12/07/19 11:10 CMP Sodium 142 mmol/L (136-145) 12/06/19 06:40 Potassium 3.5 mmol/L (3.5-5.1) 12/06/19 06:40 Chloride 104 mmol/L (98-107) 12/06/19 06:40 Carbon Dioxide 28 mmol/L (21-32) 12/06/19 06:40 Anion Gap 11 MMOL/L (8-16) 12/06/19 06:40 BUN 19.7 mg/dL (7-18) H 12/06/19 06:40 Creatinine 4.3 mg/dL (0.55-1.3) H 12/06/19 06:40 Calcium 7.7 mg/dL (8.5-10.1) L 12/06/19 06:40 Total Bilirubin 0.9 mg/dL (0.2-1) 12/06/19 06:40 AST 11 U/L (15-37) L 12/06/19 06:40 ALT 11 U/L (13-61) L 12/06/19 06:40 Alkaline Phosphatase 255 U/L (45-117) H 12/06/19 06:40 Total Protein 5.5 g/dl (6.4-8.2) L 12/06/19 06:40 Albumin 2.3 g/dl (3.4-5.0) L 12/06/19 06:40 ASSESSMENT AND PLAN: # sepsis due to Diabetic foot ulcer, cellulitis and gangrene - no fever, non tachy, WBC trended down - pain management as indicated - IV vancomycin (allergic to penicillin), aztreonam, - preliminary cultures noted, awaiting ID input if abx adjustment needed - CTA done for angio tomorrow - pt in agreement with BKA - need for surgery, risks and benefits discussed with patient who voiced verbal understanding, RCRI score 5, high risk - nozzle operator cleared pt from cardiac standpoint for surgery - ID, vascular surgeon and podiatry consult requested. #ESRD on HD - AVG graft place 11/23, graft was used successfully - MWF HD - grocery cashier consult - renal dose of medication # DM with Diabetic neuropathy - ISS +_levemer - gabapentin 100mg QD # HFrEF, CAD - on ICD - cardiology consult, strict I/O # DVT prophylaxis, fall precautions.
[2019-12-07] MEDS: HEPARIN NA (PORCINE) 5,000 UNITS/ML 1ML VIAL IVPUSH SCH ×2 (12:10→16:09)
--- NOTE | 2019-12-07 12:33 | PN ---
Progress Note, Physician History of Present Illness: Pt seen and examined at bedside. She is awake and alert. She denies shortness of breath. - Current Medication List Current Medications: Active Medications Acetaminophen (Tylenol -) 650 mg PO Q6H PRN PRN Reason: Fever Or Pain Aspirin (Asa -) 81 mg PO DAILY [facility] Last Admin: 12/06/19 10:13 Dose: 81 mg Documented by: Atorvastatin Calcium (Lipitor -) 80 mg PO [facility] Last Admin: 12/06/19 22:24 Dose: Not Given Documented by: Carvedilol (Coreg -) 3.125 mg PO [facility] Last Admin: 12/06/19 22:16 Dose: 3.125 mg Documented by: Clopidogrel Bisulfate (Plavix -) 75 mg PO DAILY [facility] Last Admin: 12/06/19 10:13 Dose: 75 mg Documented by: Fluticasone Propionate (Flonase -) 2 spray NS DAILY PRN PRN Reason: ALLERGIES Gabapentin (Neurontin -) 100 mg PO DAILY [facility] Last Admin: 12/06/19 10:13 Dose: 100 mg Documented by: Heparin Sodium (Porcine) (Heparin -) 5,000 unit SQ TID [facility] Last Admin: 12/07/19 05:32 Dose: 5,000 unit Documented by: Aztreonam 0.5 gm/ Dextrose 50 mls @ 100 mls/hr IVPB TID [facility]; Protocol Last Admin: 12/07/19 05:54 Dose: 100 mls/hr Documented by: Metronidazole (Flagyl 500mg Premixed Ivpb -) 500 mg in 100 mls @ 100 mls/hr IVPB TID [facility] Last Admin: 12/07/19 05:32 Dose: 100 mls/hr Documented by: Insulin Aspart (Novolog Vial Sliding Scale -) 1 vial SQ TIDAC [facility]; Protocol Last Admin: 12/07/19 06:29 Dose: Not Given Documented by: Insulin Detemir (Levemir Vial) 4 units SQ AM [facility] Last Admin: 12/07/19 06:34 Dose: 4 units Documented by: Lidocaine/Prilocaine (Emla -) 1 applic TP DAILY PRN PRN Reason: PAIN Last Admin: 12/07/19 09:18 Dose: 1 applic Documented by: Loratadine (Claritin -) 10 mg PO [facility] Last Admin: 12/06/19 22:16 Dose: 10 mg Documented by: Melatonin (Melatonin) 5 mg PO HS PRN PRN Reason: INSOMNIA Last Admin: 12/05/19 21:52 Dose: 5 mg Documented by: Pantoprazole Sodium (Protonix -) 40 mg PO DAILY [facility] Last Admin: 12/06/19 10:13 Dose: 40 mg Documented by: Ropinirole HCl (Requip -) 0.5 mg PO HS [facility] Last Admin: 12/06/19 22:16 Dose: 0.5 mg Documented by: - Objective Vital Signs: Vital Signs Temperature 98.5 F 12/07/19 11:00 Pulse Rate 76 12/07/19 12:10 Respiratory Rate 18 12/07/19 12:10 Blood Pressure 104/73 12/07/19 12:10 O2 Sat by Pulse Oximetry (%) 96 12/06/19 22:00 Constitutional: Yes: Calm Eyes: Yes: Conjunctiva Clear HENT: Yes: Atraumatic Neck: Yes: Supple Cardiovascular: Yes: S1, S2 Respiratory: Yes: CTA Bilaterally Gastrointestinal: Yes: Soft Genitourinary: Yes: WNL Musculoskeletal: Yes: WNL Edema: No Neurological: Yes: Oriented Labs: CBC, BMP 12/07/19 11:10 12/07/19 11:10 INR, PTT INR 1.32 (0.83-1.09) H 12/04/19 13:55 Problem List - Problems (1) ESRD (end stage renal disease) Code(s): N18.6 - END STAGE RENAL DISEASE (2) Cellulitis Code(s): L03.90 - CELLULITIS, UNSPECIFIED Qualifiers: Site of cellulitis: extremity Site of cellulitis of extremity: lower extremity Laterality: unspecified laterality Qualified Code(s): L03.119 - Ce llulitis of unspecified part of limb Assessment/Plan Current Medications Generic Name Dose Route Start Last Admin Trade Name Freq PRN Reason Stop Dose Admin Acetaminophen 650 mg 12/04/19 17:57 Tylenol - PO Q6H PRN Fever Or Pain Aspirin 81 mg 12/05/19 10:00 12/06/19 10:13 Asa - PO 81 mg DAILY DEANNA Administration Atorvastatin Calcium 80 mg 12/04/19 22:00 12/06/19 22:24 Lipitor - PO Not Given HS [facility] Carvedilol 3.125 mg 12/04/19 22:00 12/06/19 22:16 Coreg - PO 3.125 mg HS [facility] Administration Clopidogrel Bisulfate 75 mg 12/05/19 10:00 12/06/19 10:13 Plavix - PO 75 mg DAILY [facility]NA Administration Fluticasone Propionate 2 spray 12/05/19 10:00 Flonase - NS DAILY PRN ALLERGIES Gabapentin 100 mg 12/05/19 10:00 12/06/19 10:13 Neurontin - PO 100 mg DAILY DEANNA Administration Heparin Sodium (Porcine) 5,000 unit 12/04/19 22:00 12/07/19 05:32 Heparin - SQ 5,000 unit TID [facility]NA Administration Aztreonam 0.5 gm/ Dextrose 50 mls @ 100 mls/hr 12/05/19 06:00 12/07/19 05:54 IVPB 100 mls/hr TID [facility] Administration Protocol Metronidazole 500 mg in 100 mls @ 100 mls/hr 12/04/19 22:30 12/07/19 05:32 Flagyl 500mg Premixed Ivpb - IVPB 100 mls/hr TID [facility]NA Administration Insulin Aspart 1 vial 12/05/19 07:00 12/07/19 06:29 Novolog Vial Sliding Scale - SQ Not Given [facility] Protocol Insulin Detemir 4 units 12/05/19 07:00 12/07/19 06:34 Levemir Vial SQ 4 units AM [facility] Administration Lidocaine/Prilocaine 1 applic 12/06/19 14:09 12/07/19 09:18 Emla - TP 1 applic DAILY PRN Administration PAIN Loratadine 10 mg 12/04/19 22:00 12/06/19 22:16 Claritin - PO 10 mg HS [facility] Administration Melatonin 5 mg 12/04/19 18:15 12/05/19 21:52 Melatonin PO 5 mg HS PRN Administration INSOMNIA Pantoprazole Sodium 40 mg 12/05/19 10:00 12/06/19 10:13 Protonix - PO 40 mg DAILY [facility] Administration Ropinirole HCl 0.5 mg 12/04/19 22:45 12/06/19 22:16 Requip - PO 0.5 mg HS [facility] Administration Impression 1. ESRD 2. CHF 3. DM 4. HTN 5. hyperlipidemia 6. nephrotic range proteinuria 7. CAD 8. lower ext infection Plan - HD today - will use graft with 1 needle and permacath - cont wound care - vascular follow up - podiatry follow up - renal diet - epogen for anemia with HD
--- NOTE | 2019-12-07 12:43 | PN ---
Progress Note (short form) - Note Progress Note: cc: foot wound s: no chest pain, palps, dizziness, dyspnea Current Medications Generic Name Dose Route Start Last Admin Trade Name Freq PRN Reason Stop Dose Admin Acetaminophen 650 mg 12/04/19 17:57 Tylenol - PO Q6H PRN Fever Or Pain Aspirin 81 mg 12/05/19 10:00 12/06/19 10:13 Asa - PO 81 mg DAILY DEANNA Administration Atorvastatin Calcium 80 mg 12/04/19 22:00 12/06/19 22:24 Lipitor - PO Not Given HS DEANNA Carvedilol 3.125 mg 12/04/19 22:00 12/06/19 22:16 Coreg - PO 3.125 mg HS DEANNA Administration Clopidogrel Bisulfate 75 mg 12/05/19 10:00 12/06/19 10:13 Plavix - PO 75 mg DAILY DEANNA Administration Fluticasone Propionate 2 spray 12/05/19 10:00 Flonase - NS DAILY PRN ALLERGIES Gabapentin 100 mg 12/05/19 10:00 12/06/19 10:13 Neurontin - PO 100 mg DAILY DEANNA Administration Heparin Sodium (Porcine) 5,000 unit 12/04/19 22:00 12/07/19 05:32 Heparin - SQ 5,000 unit TID [facility] Administration Aztreonam 0.5 gm/ Dextrose 50 mls @ 100 mls/hr 12/05/19 06:00 12/07/19 05:54 IVPB 100 mls/hr TID DEANNA Administration Protocol Metronidazole 500 mg in 100 mls @ 100 mls/hr 12/04/19 22:30 12/07/19 05:32 Flagyl 500mg Premixed Ivpb - IVPB 100 mls/hr TID DEANNA Administration Insulin Aspart 1 vial 12/05/19 07:00 12/07/19 06:29 Novolog Vial Sliding Scale - SQ Not Given TIDAC [facility] Protocol Insulin Detemir 4 units 12/05/19 07:00 12/07/19 06:34 Levemir Vial SQ 4 units AM DEANNA Administration Lidocaine/Prilocaine 1 applic 12/06/19 14:09 12/07/19 09:18 Emla - TP 1 applic DAILY PRN Administration PAIN Loratadine 10 mg 12/04/19 22:00 12/06/19 22:16 Claritin - PO 10 mg HS DEANNA Administration Melatonin 5 mg 12/04/19 18:15 12/05/19 21:52 Melatonin PO 5 mg HS PRN Administration INSOMNIA Pantoprazole Sodium 40 mg 12/05/19 10:00 12/06/19 10:13 Protonix - PO 40 mg DAILY DEANNA Administration Ropinirole HCl 0.5 mg 12/04/19 22:45 12/06/19 22:16 Requip - PO 0.5 mg HS DEANNA Administration Vital Signs Period Temp Pulse Resp BP Sys/Horowitz Pulse Ox Last 24 Hr 97.4 F-98.5 F 63-76 18-20 97-130/44-73 96-97 Constitutional: Yes: No Distress, Calm Eyes: Yes: Conjunctiva Clear, EOM Intact HENT: Yes: Atraumatic, Normocephalic Neck: Yes: Supple, Trachea Midline Respiratory: Yes: Regular, CTA Bilaterally Gastrointestinal: Yes: Normal Bowel Sounds, Soft Cardiovascular: Yes: Regular Rate and Rhythm JVD: No Heart Sounds: Yes: S1, S2 Extremities: No: Cold Edema: No, +foot gangrene Neurological: Yes: Alert, Oriented Psychiatric: No: Agitated no jaundice diaphoresis EKG: sinus, nl intervals, lvh with repol, similar to prior echo 03/2019 tds, mod to sev MR, mild to mod ao sclerosis, severe TR, severely reduced LV function, RVSP >60 mmHg, LV/RV not well visualized, mild to mod AR mibi 03/2019 mod size inferolateral infarct with mild марина-infarct ischemia, global hypokinesis, EF 13% cxr: no chf a/p: 59F h/o CAD s/p CABG, chronic systolic HF s/p ICD, DM, ESRD on HD chronic L foot wound p/w worsening foot wound. chronic systolic HF, s/p ICD - appears euvolemic - volume management per renal with HD - continue carvedilol, additional chf meds limited by low BP in the past CAD s/p CABG - stable, no angina, no signs acs - cont statin, asa, bb - recent mibi w/o significant ischemia DM - manage per primary pad, non healing wound, gangrene: - bka planned -no cardiac contraindications to bka
--- NOTE | 2019-12-07 13:11 | PN ---
Progress Note, Physician History of Present Illness: stable no new issues - Current Medication List Current Medications: Active Medications Acetaminophen (Tylenol -) 650 mg PO Q6H PRN PRN Reason: Fever Or Pain Aspirin (Asa -) 81 mg PO DAILY [facility] Last Admin: 12/06/19 10:13 Dose: 81 mg Documented by: Atorvastatin Calcium (Lipitor -) 80 mg PO HS [facility] Last Admin: 12/06/19 22:24 Dose: Not Given Documented by: Carvedilol (Coreg -) 3.125 mg PO HS [facility] Last Admin: 12/06/19 22:16 Dose: 3.125 mg Documented by: Clopidogrel Bisulfate (Plavix -) 75 mg PO DAILY [facility] Last Admin: 12/06/19 10:13 Dose: 75 mg Documented by: Fluticasone Propionate (Flonase -) 2 spray NS DAILY PRN PRN Reason: ALLERGIES Gabapentin (Neurontin -) 100 mg PO DAILY [facility] Last Admin: 12/06/19 10:13 Dose: 100 mg Documented by: Heparin Sodium (Porcine) (Heparin -) 5,000 unit SQ TID [facility] Last Admin: 12/07/19 05:32 Dose: 5,000 unit Documented by: Aztreonam 0.5 gm/ Dextrose 50 mls @ 100 mls/hr IVPB TID [facility]; Protocol Last Admin: 12/07/19 05:54 Dose: 100 mls/hr Documented by: Metronidazole (Flagyl 500mg Premixed Ivpb -) 500 mg in 100 mls @ 100 mls/hr IVPB TID [facility] Last Admin: 12/07/19 05:32 Dose: 100 mls/hr Documented by: Insulin Aspart (Novolog Vial Sliding Scale -) 1 vial SQ TIDAC [facility]; Protocol Last Admin: 12/07/19 06:29 Dose: Not Given Documented by: Insulin Detemir (Levemir Vial) 4 units SQ AM [facility] Last Admin: 12/07/19 06:34 Dose: 4 units Documented by: Lidocaine/Prilocaine (Emla -) 1 applic TP DAILY PRN PRN Reason: PAIN Last Admin: 12/07/19 09:18 Dose: 1 applic Documented by: Loratadine (Claritin -) 10 mg PO HS [facility] Last Admin: 12/06/19 22:16 Dose: 10 mg Documented by: Melatonin (Melatonin) 5 mg PO HS PRN PRN Reason: INSOMNIA Last Admin: 12/05/19 21:52 Dose: 5 mg Documented by: Pantoprazole Sodium (Protonix -) 40 mg PO DAILY [facility] Last Admin: 12/06/19 10:13 Dose: 40 mg Documented by: Ropinirole HCl (Requip -) 0.5 mg PO HS [facility] Last Admin: 12/06/19 22:16 Dose: 0.5 mg Documented by: - Objective Vital Signs: Vital Signs Temperature 98.5 F 12/07/19 11:00 Pulse Rate 76 12/07/19 12:10 Respiratory Rate 18 12/07/19 12:10 Blood Pressure 104/73 12/07/19 12:10 O2 Sat by Pulse Oximetry (%) 96 12/06/19 22:00 Constitutional: Yes: No Distress, Calm Cardiovascular: Yes: S1, S2 Respiratory: Yes: Regular, CTA Bilaterally Gastrointestinal: Yes: Normal Bowel Sounds, Soft Musculoskeletal: Yes: WNL Extremities: Yes: Other Neurological: Yes: Alert, Oriented Psychiatric: Yes: Alert, Oriented Labs: CBC, BMP 12/07/19 11:10 12/07/19 11:10 INR, PTT INR 1.32 (0.83-1.09) H 12/04/19 13:55 Assessment/Plan 59 yo F with PMH of ESRD (M/W/F), DM, HTN, CAD( S/P CABG), HFrEF( S/P ICD), PVD (S/P right metatarsal amputation) presents to ED for worsening L foot infection. cellulitis gangrene of the foot dm htn hferp esrd plan abx wound care rest as per the team
[2019-12-07] MEDS ORDERED: EPOETIN ALFA 10,000 UNIT/1 ML VIAL IVPUSH ONE (14:11)
[2019-12-07] MEDS: CLOPIDOGREL BISULFATE 75 MG TABLET (FP) PO SCH (14:48)
[2019-12-07] MEDS: PANTOPRAZOLE 40 MG TABLET PO SCH (14:48)
[2019-12-07] MEDS: ASPIRIN 81 MG CHEWABLE TABLETS PO SCH (14:48)
[2019-12-07] MEDS: GABAPENTIN 100 MG CAPSULE PO SCH (14:49)
--- NOTE | 2019-12-07 15:44 | PN ---
Physical Exam: SUBJECTIVE: Patient seen and examined OBJECTIVE: Vital Signs Temperature 97.5 F L 12/07/19 15:00 Pulse Rate 68 12/07/19 15:00 Respiratory Rate 20 12/07/19 15:00 Blood Pressure 121/53 L 12/07/19 15:00 O2 Sat by Pulse Oximetry (%) 96 12/07/19 15:00 GENERAL: The patient is awake, alert, and fully oriented, in no acute distress. NECK: Trachea midline, full range of motion, supple. LUNGS: Breath sounds equal, clear to auscultation bilaterally HEART: Regular rate and rhythm, S1, S2 ABDOMEN: Soft, nontender, nondistended, normoactive bowel sounds EXTREMITIES: no palpable pedal pulses bilaterally; RLE: 2nd digit amputated with ulceration but no erythema, right heel with diffuse eschar. LLE: all digits with ulcerations/eschar, extending to dorsum of left foot NEUROLOGICAL: Cranial nerves II through XII grossly intact. Normal speech PSYCH: Normal mood, normal affect. SKIN: Warm, dry, normal turgor Laboratory Results - last 24 hr 12/04/19 12/05/19 12/06/19 13:55 14:00 17:06 WBC RBC Hgb Hct MCV MCH MCHC RDW Plt Count MPV VBG pH 7.293 L POC VBG pCO2 50.9 POC VBG pO2 16.7 L VBG HCO3 24.1 VBG O2 Sat (Tabatha) 19.7 L VBG Base Excess -2.9 L Sodium Potassium Chloride Carbon Dioxide Anion Gap BUN Creatinine Est GFR (CKD-EPI)AfAm Est GFR (CKD-EPI)NonAf POC Glucometer 72 Random Glucose Calcium Total Bilirubin AST ALT Alkaline Phosphatase Total Protein Albumin Hep Bs Antigen Negative Hep C Ab Diagnostic <0.1 12/06/19 12/07/19 12/07/19 21:36 06:25 11:10 WBC 6.8 RBC 2.88 L Hgb 9.3 L Hct 30.4 L MCV 105.5 H MCH 32.1 MCHC 30.5 L RDW 21.9 H Plt Count 115 L MPV 9.1 VBG pH POC VBG pCO2 POC VBG pO2 VBG HCO3 VBG O2 Sat (Tabatha) VBG Base Excess Sodium Potassium Chloride Carbon Dioxide Anion Gap BUN Creatinine Est GFR (CKD-EPI)AfAm Est GFR (CKD-EPI)NonAf POC Glucometer 175 130 Random Glucose Calcium Total Bilirubin AST ALT Alkaline Phosphatase Total Protein Albumin Hep Bs Antigen Hep C Ab Diagnostic 12/07/19 11:10 WBC RBC Hgb Hct MCV MCH MCHC RDW Plt Count MPV VBG pH POC VBG pCO2 POC VBG pO2 VBG HCO3 VBG O2 Sat (Tabatha) VBG Base Excess Sodium 138 Potassium 3.4 L Chloride 103 Carbon Dioxide 25 Anion Gap 11 BUN 29.8 H Creatinine 5.1 H Est GFR (CKD-EPI)AfAm 9.96 Est GFR (CKD-EPI)NonAf 8.59 POC Glucometer Random Glucose 205 H Calcium 7.6 L Total Bilirubin 0.9 AST 10 L ALT 8 L Alkaline Phosphatase 226 H Total Protein 5.1 L Albumin 2.1 L Hep Bs Antigen Hep C Ab Diagnostic Active Medications Generic Name Dose Route Start Last Admin Trade Name Freq PRN Reason Stop Dose Admin Acetaminophen 650 mg 12/04/19 17:57 Tylenol - PO Q6H PRN Fever Or Pain Ascorbic Acid 500 mg 12/08/19 10:00 Vitamin C - PO DAILY DEANNA Aspirin 81 mg 12/05/19 10:00 12/07/19 14:48 Asa - PO 81 mg DAILY DEANNA Administration Atorvastatin Calcium 80 mg 12/04/19 22:00 12/06/19 22:24 Lipitor - PO Not Given HS DEANNA Carvedilol 3.125 mg 12/04/19 22:00 12/06/19 22:16 Coreg - PO 3.125 mg HS DEANNA Administration Clopidogrel Bisulfate 75 mg 12/05/19 10:00 12/07/19 14:48 Plavix - PO 75 mg DAILY DEANNA Administration Fluticasone Propionate 2 spray 12/05/19 10:00 Flonase - NS DAILY PRN ALLERGIES Gabapentin 100 mg 12/05/19 10:00 12/07/19 14:49 Neurontin - PO 100 mg DAILY DEANNA Administration Heparin Sodium (Porcine) 5,000 unit 12/04/19 22:00 12/07/19 14:49 Heparin - SQ 5,000 unit TID DEANNA Administration Aztreonam 0.5 gm/ Dextrose 50 mls @ 100 mls/hr 12/05/19 06:00 12/07/19 14:48 IVPB 100 mls/hr TID DEANNA Administration Protocol Metronidazole 500 mg in 100 mls @ 100 mls/hr 12/04/19 22:30 12/07/19 15:10 Flagyl 500mg Premixed Ivpb - IVPB 100 mls/hr TID DEANNA Administration Insulin Aspart 1 vial 12/05/19 07:00 12/07/19 11:00 Novolog Vial Sliding Scale - SQ Not Given TIDAC [facility] Protocol Insulin Detemir 4 units 12/05/19 07:00 12/07/19 06:34 Levemir Vial SQ 4 units AM DEANNA Administration Lidocaine/Prilocaine 1 applic 12/06/19 14:09 12/07/19 09:18 Emla - TP 1 applic DAILY PRN Administration PAIN Loratadine 10 mg 12/04/19 22:00 12/06/19 22:16 Claritin - PO 10 mg HS DEANNA Administration Melatonin 5 mg 12/04/19 18:15 12/05/19 21:52 Melatonin PO 5 mg HS PRN Administration INSOMNIA Multivit/Ca Carb/B Cmplx/FA/Prenat 1 tablet 12/08/19 10:00 Nephro-Ivon - PO DAILY DEANNA Pantoprazole Sodium 40 mg 12/05/19 10:00 12/07/19 14:48 Protonix - PO 40 mg DAILY DEANNA Administration Ropinirole HCl 0.5 mg 12/04/19 22:45 12/06/19 22:16 Requip - PO 0.5 mg HS DEANNA Administration ASSESSMENT/PLAN: Patient is a 59 year old female with past medical history of HTN, PAD, CAD(s/p CABG), HFrEF(s/p ICD), ESRD (MWF), DM, right second toe amputation and chronic wound drainage on her left foot since early May, presented to the ED on 12/03 with worsening cellulitis of the foot with the presence of maggots that she had noticed that morning. She had been receiving routine wound care up until 2 weeks ago when she had an AV graft placement done in the right arm. #Sepsis 2/2 Gangrene, Cellulitis (b/l) L>R - Aztreonam 0.5g TID and flagyl 500mg TID - wound cx polymicrobial - blood cx no growth to date - XR foot, Lt - May be a soft tissue ulceration by the MCP joints in the lateral view. Osteomyelitis can't be ruled out - ID (Dr. Charles) consulted, Vascular (Dr. Giraldo), and Podiatry (Dr. Copeland) following. Recommendations appreciated - Local care with betadine to all areas bilateral feet - f/u CTA with LE runoff results - For LLE angio with Dr. Giraldo on to evaluate peripheral flow. Will likely need BKA. - Cardiology (Dr. Alford) consulted for cardiac clearance. - no cardiac contraindications to bka - tylenol for pain #DM - A1C 9.5 (from 10/2019) - Insulin sliding scale implemented - BGM ACHS - Gabapentin for neuropathy #HTN - c/w coreg #PAD - No claudications, absent pedal pulses - C/w with DAPT and statin #HFrEF - BNP >175,000. CXR reviewed. - Cardio (Dr. Alford) consulted. Recommendations appreciated - C/w Statin, plavix, asa, coreg - EKG NSR, similar to prior - 03/2019 Echo EF 13%, patient isn't experiencing sx associated with an exacerbation (orthopnea, NPD, SOB, etc), CXR neg for CHF - I/Os, daily weights, monitor for change in sx, manage with HD #ESRD ( M,W, F) - Nephrology (Dr. Pond) consulted. - Dialysis today (MWF) - AV graft placed 11/24/2019 #FEN -Not on standing fluids -Electrolytes wnl, will continue to monitor -Renal diet #Prophylaxis -Heparin 5,000 U -Pantoprazole 40mg QD #Disposition -Will continue to monitor patient on MS Visit type - Emergency Visit Emergency Visit: Yes ED Registration Date: 12/04/19 Care time: The patient presented to the Emergency Department on the above date and was hospitalized for further evaluation of their emergent condition. - New Patient This patient is new to me today: No - Critical Care Critical Care patient: No ATTENDING PHYSICIAN STATEMENT I saw and evaluated the patient. I reviewed the resident's note and discussed the case with the resident. I agree with the resident's findings and plan as documented. SUBJECTIVE: OBJECTIVE: ASSESSMENT AND PLAN:
[2019-12-07] MEDS: rOPINIRole HCL 0.25 MG TABLET PO SCH (22:23)
[2019-12-07] MEDS: CARVEDILOL 3.125 MG TABLET (FP) PO SCH (22:23)
[2019-12-07] MEDS: LORATADINE 10 MG TABLET PO SCH (22:23)
[2019-12-07] MEDS: ATORVASTATIN CA 80 MG TABLET (FP) PO SCH (22:38)
[2019-12-08] MEDS: AZTREONAM 0.5 GM in DEXTROSE 5%-WATER - 50 ML IVPB SCH ×3 (05:42→21:35)
[2019-12-08] MEDS: HEPARIN NA (PORCINE) 5,000 UNITS/ML 1ML VIAL SQ SCH ×3 (06:06→21:10)
[2019-12-08] MEDS: INSULIN SLIDING SCALE (NOVOLOG) 1 VIAL SQ SCH ×3 (06:21→17:26)
[2019-12-08] MEDS: INSULIN (LEVEMIR) 100 UNITS/ML UNITS SQ SCH (06:25)
[2019-12-08 08:29] LABS: HEMATOCRIT 31.1 % (32.4-45.2); HEMOGLOBIN 9.4 GM/dL (10.7-15.3); MCH 32.3 pg (25.7-33.7); MCHC 30.3 g/dl (32.0-36.0); MEAN CELL VOLUME 106.5 fl (80-96); MEAN PLT VOLUME 9.1 fl (7.5-11.1); PLATELET COUNT 124 K/MM3 (134-434); RBC 2.92 M/mm3 (3.60-5.2); RDW 22.2 % (11.6-15.6); WHITE BLOOD COUNT 6.9 K/mm3 (4.0-10.0)
[2019-12-08 08:59] LABS: CREATININE 3.7 mg/dL (0.55-1.3)
[2019-12-08 09:00] LABS: BLOOD UREA NITROGEN 16.6 mg/dL (7-18); CALCIUM 7.7 mg/dL (8.5-10.1); MAGNESIUM 1.9 mg/dL (1.8-2.4); POTASSIUM 3.8 mmol/L (3.5-5.1)
[2019-12-08] MEDS: ASCORBIC ACID 500 MG TABLET (FP) PO SCH (09:23)
[2019-12-08] MEDS: GABAPENTIN 100 MG CAPSULE PO SCH (09:23)
[2019-12-08] MEDS: PANTOPRAZOLE 40 MG TABLET PO SCH (09:24)
[2019-12-08] MEDS: CLOPIDOGREL BISULFATE 75 MG TABLET (FP) PO SCH ×2 (09:24→10:17)
[2019-12-08] MEDS: VITAMIN B COMP W-C 1 EA TABLET (NEPHRO-VITE) PO SCH (09:24)
[2019-12-08] MEDS: ASPIRIN 81 MG CHEWABLE TABLETS PO SCH (09:24)
--- NOTE | 2019-12-08 09:43 | PN ---
Progress Note, Physician History of Present Illness: stable wounds clean now going for angioplasty - Current Medication List Current Medications: Active Medications Acetaminophen (Tylenol -) 650 mg PO Q6H PRN PRN Reason: Fever Or Pain Ascorbic Acid (Vitamin C -) 500 mg PO DAILY [facility] Last Admin: 12/08/19 09:23 Dose: 500 mg Documented by: Aspirin (Asa -) 81 mg PO DAILY [facility] Last Admin: 12/08/19 09:24 Dose: 81 mg Documented by: Atorvastatin Calcium (Lipitor -) 80 mg PO [facility] Last Admin: 12/07/19 22:38 Dose: Not Given Documented by: Carvedilol (Coreg -) 3.125 mg PO [facility] Last Admin: 12/07/19 22:23 Dose: 3.125 mg Documented by: Clopidogrel Bisulfate (Plavix -) 75 mg PO DAILY [facility] Last Admin: 12/08/19 09:24 Dose: 75 mg Documented by: Fluticasone Propionate (Flonase -) 2 spray NS DAILY PRN PRN Reason: ALLERGIES Gabapentin (Neurontin -) 100 mg PO DAILY [facility] Last Admin: 12/08/19 09:23 Dose: 100 mg Documented by: Heparin Sodium (Porcine) (Heparin -) 5,000 unit SQ TID [facility] Last Admin: 12/08/19 06:06 Dose: 5,000 unit Documented by: Aztreonam 0.5 gm/ Dextrose 50 mls @ 100 mls/hr IVPB TID [facility]; Protocol Last Admin: 12/08/19 05:42 Dose: 100 mls/hr Documented by: Metronidazole (Flagyl 500mg Premixed Ivpb -) 500 mg in 100 mls @ 100 mls/hr IVPB TID [facility] Last Admin: 12/08/19 06:11 Dose: 100 mls/hr Documented by: Insulin Aspart (Novolog Vial Sliding Scale -) 1 vial SQ TIDAC [facility]; Protocol Last Admin: 12/08/19 06:21 Dose: Not Given Documented by: Insulin Detemir (Levemir Vial) 4 units SQ AM [facility] Last Admin: 12/08/19 06:25 Dose: Not Given Documented by: Lidocaine/Prilocaine (Emla -) 1 applic TP DAILY PRN PRN Reason: PAIN Last Admin: 12/07/19 09:18 Dose: 1 applic Documented by: Loratadine (Claritin -) 10 mg PO [facility] Last Admin: 12/07/19 22:23 Dose: 10 mg Documented by: Melatonin (Melatonin) 5 mg PO HS PRN PRN Reason: INSOMNIA Last Admin: 12/05/19 21:52 Dose: 5 mg Documented by: Multivit/Ca Carb/B Cmplx/FA/Prenat (Nephro-Ivon -) 1 tablet PO DAILY [facility] Last Admin: 12/08/19 09:24 Dose: 1 tablet Documented by: Pantoprazole Sodium (Protonix -) 40 mg PO DAILY [facility] Last Admin: 12/08/19 09:24 Dose: 40 mg Documented by: Ropinirole HCl (Requip -) 0.5 mg PO HS [facility] Last Admin: 12/07/19 22:23 Dose: 0.5 mg Documented by: - Objective Vital Signs: Vital Signs Temperature 98.7 F 12/08/19 09:28 Pulse Rate 70 12/08/19 09:28 Respiratory Rate 18 12/08/19 09:28 Blood Pressure 118/64 12/08/19 09:28 O2 Sat by Pulse Oximetry (%) 95 12/08/19 09:28 Constitutional: Yes: No Distress, Calm Cardiovascular: Yes: S1, S2 Gastrointestinal: Yes: Normal Bowel Sounds, Soft Musculoskeletal: Yes: Other Extremities: Yes: Other Wound/Incision: Yes: Dressing Dry and Intact Neurological: Yes: Alert, Oriented Psychiatric: Yes: Alert, Oriented Labs: CBC, BMP 12/08/19 07:45 12/08/19 07:45 INR, PTT INR 1.32 (0.83-1.09) H 12/04/19 13:55 Assessment/Plan 59 yo F with PMH of ESRD (M/W/F), DM, HTN, CAD( S/P CABG), HFrEF( S/P ICD), PVD (S/P right metatarsal amputation) presents to ED for worsening L foot infection. cellulitis gangrene of the foot dm htn hferp esrd plan abx angioplasty today wound care rest as per the team
--- NOTE | 2019-12-08 11:21 | PN ---
Progress Note (short form) - Note Progress Note: cc: foot wound s: no chest pain, palps, dizziness, dyspnea Current Medications Generic Name Dose Route Start Last Admin Trade Name Freq PRN Reason Stop Dose Admin Acetaminophen 650 mg 12/04/19 17:57 Tylenol - PO Q6H PRN Fever Or Pain Ascorbic Acid 500 mg 12/08/19 10:00 12/08/19 09:23 Vitamin C - PO 500 mg DAILY DEANNA Administration Aspirin 81 mg 12/05/19 10:00 12/08/19 09:24 Asa - PO 81 mg DAILY DEANNA Administration Atorvastatin Calcium 80 mg 12/04/19 22:00 12/07/19 22:38 Lipitor - PO Not Given HS DEANNA Carvedilol 3.125 mg 12/04/19 22:00 12/07/19 22:23 Coreg - PO 3.125 mg HS DEANNA Administration Clopidogrel Bisulfate 75 mg 12/05/19 10:00 12/08/19 09:24 Plavix - PO 75 mg DAILY DEANNA Administration Fluticasone Propionate 2 spray 12/05/19 10:00 Flonase - NS DAILY PRN ALLERGIES Gabapentin 100 mg 12/05/19 10:00 12/08/19 09:23 Neurontin - PO 100 mg DAILY DEANNA Administration Heparin Sodium (Porcine) 5,000 unit 12/04/19 22:00 12/08/19 06:06 Heparin - SQ 5,000 unit TID [facility] Administration Aztreonam 0.5 gm/ Dextrose 50 mls @ 100 mls/hr 12/05/19 06:00 12/08/19 05:42 IVPB 100 mls/hr TID [facility] Administration Protocol Metronidazole 500 mg in 100 mls @ 100 mls/hr 12/04/19 22:30 12/08/19 06:11 Flagyl 500mg Premixed Ivpb - IVPB 100 mls/hr TID [facility] Administration Insulin Aspart 1 vial 12/05/19 07:00 12/08/19 06:21 Novolog Vial Sliding Scale - SQ Not Given TIDAC [facility] Protocol Insulin Detemir 4 units 12/05/19 07:00 12/08/19 06:25 Levemir Vial SQ Not Given AM DEANNA Lidocaine/Prilocaine 1 applic 12/06/19 14:09 12/07/19 09:18 Emla - TP 1 applic DAILY PRN Administration PAIN Loratadine 10 mg 12/04/19 22:00 12/07/19 22:23 Claritin - PO 10 mg HS DEANNA Administration Melatonin 5 mg 12/04/19 18:15 12/05/19 21:52 Melatonin PO 5 mg HS PRN Administration INSOMNIA Multivit/Ca Carb/B Cmplx/FA/Prenat 1 tablet 12/08/19 10:00 12/08/19 09:24 Nephro-Ivon - PO 1 tablet DAILY DEANNA Administration Pantoprazole Sodium 40 mg 12/05/19 10:00 12/08/19 09:24 Protonix - PO 40 mg DAILY DEANNA Administration Ropinirole HCl 0.5 mg 12/04/19 22:45 12/07/19 22:23 Requip - PO 0.5 mg HS DEANNA Administration Vital Signs Period Temp Pulse Resp BP Sys/Horowitz Pulse Ox Last 24 Hr 97.5 F-99.2 F 62-81 18-20 94-158/48-81 68-96 Constitutional: Yes: No Distress, Calm Eyes: Yes: Conjunctiva Clear, EOM Intact HENT: Yes: Atraumatic, Normocephalic Neck: Yes: Supple, Trachea Midline Respiratory: Yes: Regular, CTA Bilaterally Gastrointestinal: Yes: Normal Bowel Sounds, Soft Cardiovascular: Yes: Regular Rate and Rhythm JVD: No Heart Sounds: Yes: S1, S2 Extremities: No: Cold Edema: No, +foot gangrene Neurological: Yes: Alert, Oriented Psychiatric: No: Agitated no jaundice diaphoresis CBC, BMP 12/08/19 07:45 12/08/19 07:45 EKG: sinus, nl intervals, lvh with repol, similar to prior echo 03/2019 tds, mod to sev MR, mild to mod ao sclerosis, severe TR, severely reduced LV function, RVSP >60 mmHg, LV/RV not well visualized, mild to mod AR mibi 03/2019 mod size inferolateral infarct with mild марина-infarct ischemia, global hypokinesis, EF 13% cxr: no chf a/p: 59F h/o CAD s/p CABG, chronic systolic HF s/p ICD, DM, ESRD on HD chronic L foot wound p/w worsening foot wound. chronic systolic HF, s/p ICD - appears euvolemic - volume management per renal with HD - continue carvedilol, additional chf meds limited by low BP in the past CAD s/p CABG - stable, no angina, no signs acs - cont statin, asa, bb - recent mibi w/o significant ischemia DM - manage per primary pad, non healing wound, gangrene: - bka planned -no cardiac contraindications to bka
--- NOTE | 2019-12-08 12:37 | PN ---
Teaching Attending Note Name of Resident: Lupis Farrell ATTENDING PHYSICIAN STATEMENT I saw and evaluated the patient. I reviewed the resident's note and discussed the case with the resident. I agree with the resident's findings and plan as documented. SUBJECTIVE: seen and examined, demonstrated better affect today OBJECTIVE: Last Vital Signs Temp Pulse Resp BP Pulse Ox 98.7 F 70 18 118/64 95 12/08/19 09:28 12/08/19 09:28 12/08/19 09:28 12/08/19 09:28 12/08/19 09:28 GENERAL: Awake, alert, and fully oriented, in no acute distress. HEAD: Normal with no signs of trauma. EYES: Pupils equal, round and reactive to light, extraocular movements intact, sclera anicteric, conjunctiva clear. No lid lag. EARS, NOSE, THROAT: Ears normal, nares patent, oropharynx clear without exudates. Moist mucous membranes. NECK: Normal range of motion, supple without lymphadenopathy, JVD, or masses. LUNGS: fine rales bilaterally. No accessory muscle use. HEART: Regular rate and rhythm, normal S1 and S2 with 3/6 systolic murmur @ LSB, rub or gallop. ABDOMEN: Soft, nontender, not distended, normoactive bowel sounds, no guarding, no rebound, no masses. No hepatomegaly or splenomegaly. MUSCULOSKELETAL: Normal range of motion at all joints. No bony deformities or tenderness. No CVA tenderness. UPPER EXTREMITIES: 2+ pulses, warm, well-perfused. No cyanosis. No clubbing. No peripheral edema. LOWER EXTREMITIES: No peripheral edema, unable to feel dorsalis pedis bilaterally, posterior tibial +1 Rt, unable to feel on left, both legs warm, amputated rt 2nd toe NEUROLOGICAL: Cranial nerves II-XII intact. Normal speech. Normal gait. sensory loss below mid cam bilaterally PSYCHIATRIC: Cooperative. Good eye contact. Appropriate mood and affect. SKIN: bilaterally dry gangrene on both feet, CBCD WBC 6.9 K/mm3 (4.0-10.0) 12/08/19 07:45 RBC 2.92 M/mm3 (3.60-5.2) L 12/08/19 07:45 Hgb 9.4 GM/dL (10.7-15.3) L 12/08/19 07:45 Hct 31.1 % (32.4-45.2) L 12/08/19 07:45 MCV 106.5 fl (80-96) H 12/08/19 07:45 MCHC 30.3 g/dl (32.0-36.0) L 12/08/19 07:45 RDW 22.2 % (11.6-15.6) H 12/08/19 07:45 Plt Count 124 K/MM3 (134-434) L 12/08/19 07:45 MPV 9.1 fl (7.5-11.1) 12/08/19 07:45 CMP Sodium 143 mmol/L (136-145) 12/08/19 07:45 Potassium 3.8 mmol/L (3.5-5.1) 12/08/19 07:45 Chloride 106 mmol/L (98-107) 12/08/19 07:45 Carbon Dioxide 29 mmol/L (21-32) 12/08/19 07:45 Anion Gap 8 MMOL/L (8-16) 12/08/19 07:45 BUN 16.6 mg/dL (7-18) 12/08/19 07:45 Creatinine 3.7 mg/dL (0.55-1.3) H 12/08/19 07:45 Calcium 7.7 mg/dL (8.5-10.1) L 12/08/19 07:45 Total Bilirubin 0.9 mg/dL (0.2-1) 12/07/19 11:10 AST 10 U/L (15-37) L 12/07/19 11:10 ALT 8 U/L (13-61) L 12/07/19 11:10 Alkaline Phosphatase 226 U/L (45-117) H 12/07/19 11:10 Total Protein 5.1 g/dl (6.4-8.2) L 12/07/19 11:10 Albumin 2.1 g/dl (3.4-5.0) L 12/07/19 11:10 ASSESSMENT AND PLAN: # sepsis due to Diabetic foot ulcer, cellulitis and gangrene - no fever, non tachy, WBC trended down - pain management as indicated - IV vancomycin (allergic to penicillin), aztreonam, - preliminary cultures noted, discussed with ID - for angio today - pt in agreement with BKA - need for surgery, risks and benefits discussed with patient who voiced verbal understanding, RCRI score 5, high risk - 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 #ESRD on HD - AVG graft + perm-a-cath - MWF HD - erecting engineer consult - renal dose of medication # DM with Diabetic neuropathy - ISS +_levemer - gabapentin 100mg QD # HFrEF, CAD - on ICD - cardiology consult, strict I/O # DVT prophylaxis, fall precautions.
[2019-12-08] MEDS ORDERED: DEXTROSE 5%-0.45% SALINE 1,000 ML IV SCH (12:45)
--- NOTE | 2019-12-08 13:21 | PN ---
Physical Exam: SUBJECTIVE: Patient seen and examined OBJECTIVE: Vital Signs Temperature 98.7 F 12/08/19 09:28 Pulse Rate 70 12/08/19 09:28 Respiratory Rate 18 12/08/19 09:28 Blood Pressure 118/64 12/08/19 09:28 O2 Sat by Pulse Oximetry (%) 95 12/08/19 09:28 GENERAL: The patient is awake, alert, and fully oriented, in no acute distress. NECK: Trachea midline, full range of motion, supple. LUNGS: Breath sounds equal, clear to auscultation bilaterally HEART: Regular rate and rhythm, S1, S2 ABDOMEN: Soft, nontender, nondistended, normoactive bowel sounds EXTREMITIES: no palpable pedal pulses bilaterally; RLE: 2nd digit amputated with ulceration but no erythema, right heel with diffuse eschar. LLE: all digits with ulcerations/eschar, extending to dorsum of left foot NEUROLOGICAL: Cranial nerves II through XII grossly intact. Normal speech PSYCH: Normal mood, normal affect. SKIN: Warm, dry, normal turgor Laboratory Results - last 24 hr 12/07/19 12/08/19 12/08/19 16:49 06:16 07:45 WBC 6.9 RBC 2.92 L Hgb 9.4 L Hct 31.1 L MCV 106.5 H MCH 32.3 MCHC 30.3 L RDW 22.2 H Plt Count 124 L MPV 9.1 Sodium Potassium Chloride Carbon Dioxide Anion Gap BUN Creatinine Est GFR (CKD-EPI)AfAm Est GFR (CKD-EPI)NonAf POC Glucometer 185 128 Random Glucose Calcium Magnesium 12/08/19 12/08/19 12/08/19 07:45 11:50 13:03 WBC RBC Hgb Hct MCV MCH MCHC RDW Plt Count MPV Sodium 143 Potassium 3.8 Chloride 106 Carbon Dioxide 29 Anion Gap 8 BUN 16.6 Creatinine 3.7 H Est GFR (CKD-EPI)AfAm 14.68 Est GFR (CKD-EPI)NonAf 12.67 POC Glucometer 97 85 Random Glucose 116 H Calcium 7.7 L Magnesium 1.9 Active Medications Generic Name Dose Route Start Last Admin Trade Name Freq PRN Reason Stop Dose Admin Acetaminophen 650 mg 12/04/19 17:57 Tylenol - PO Q6H PRN Fever Or Pain Ascorbic Acid 500 mg 12/08/19 10:00 12/08/19 09:23 Vitamin C - PO 500 mg DAILY DEANNA Administration Aspirin 81 mg 12/05/19 10:00 12/08/19 09:24 Asa - PO 81 mg DAILY DEANNA Administration Atorvastatin Calcium 80 mg 12/04/19 22:00 12/07/19 22:38 Lipitor - PO Not Given HS DEANNA Carvedilol 3.125 mg 12/04/19 22:00 12/07/19 22:23 Coreg - PO 3.125 mg HS DEANNA Administration Clopidogrel Bisulfate 75 mg 12/05/19 10:00 12/08/19 09:24 Plavix - PO 75 mg DAILY DEANNA Administration Fluticasone Propionate 2 spray 12/05/19 10:00 Flonase - NS DAILY PRN ALLERGIES Gabapentin 100 mg 12/05/19 10:00 12/08/19 09:23 Neurontin - PO 100 mg DAILY DEANNA Administration Heparin Sodium (Porcine) 5,000 unit 12/04/19 22:00 12/08/19 06:06 Heparin - SQ 5,000 unit TID [facility] Administration Aztreonam 0.5 gm/ Dextrose 50 mls @ 100 mls/hr 12/05/19 06:00 12/08/19 05:42 IVPB 100 mls/hr TID [facility] Administration Protocol Metronidazole 500 mg in 100 mls @ 100 mls/hr 12/04/19 22:30 12/08/19 06:11 Flagyl 500mg Premixed Ivpb - IVPB 100 mls/hr TID [facility] Administration Dextrose/Sodium Chloride 1,000 mls @ 42 mls/hr 12/08/19 12:45 D5-1/2ns - IV ASDIR [facility] Insulin Aspart 1 vial 12/05/19 07:00 12/08/19 12:22 Novolog Vial Sliding Scale - SQ Not Given TIDAC [facility] Protocol Insulin Detemir 4 units 12/05/19 07:00 12/08/19 06:25 Levemir Vial SQ Not Given AM [facility] Lidocaine/Prilocaine 1 applic 12/06/19 14:09 12/07/19 09:18 Emla - TP 1 applic DAILY PRN Administration PAIN Loratadine 10 mg 12/04/19 22:00 12/07/19 22:23 Claritin - PO 10 mg HS DEANNA Administration Melatonin 5 mg 12/04/19 18:15 12/05/19 21:52 Melatonin PO 5 mg HS PRN Administration INSOMNIA Multivit/Ca Carb/B Cmplx/FA/Prenat 1 tablet 12/08/19 10:00 12/08/19 09:24 Nephro-Ivon - PO 1 tablet DAILY DEANNA Administration Pantoprazole Sodium 40 mg 12/05/19 10:00 12/08/19 09:24 Protonix - PO 40 mg DAILY DEANNA Administration Ropinirole HCl 0.5 mg 12/04/19 22:45 12/07/19 22:23 Requip - PO 0.5 mg HS DEANNA Administration ASSESSMENT/PLAN: Patient is a 59 year old female with past medical history of HTN, PAD, CAD(s/p CABG), HFrEF(s/p ICD), ESRD (MWF), DM, right second toe amputation and chronic wound drainage on her left foot since early May, presented to the ED on 12/03 with worsening cellulitis of the foot with the presence of maggots that she had noticed that morning. She had been receiving routine wound care up until 2 weeks ago when she had an AV graft placement done in the right arm. #Sepsis 2/2 Gangrene, Cellulitis (b/l) L>R - Aztreonam 0.5g TID and flagyl 500mg TID - wound cx : Klebsiella, staph, VRE faecium - blood cx no growth to date - XR foot, Lt - May be a soft tissue ulceration by the MCP joints in the lateral view. Osteomyelitis can't be ruled out - ID (Dr. Charles) consulted, Vascular (Dr. Giraldo), and Podiatry (Dr. Copeland) following. Recommendations appreciated - Local care with betadine to all areas bilateral feet - f/u CTA with LE runoff results - plan for LLE angio today with Dr. Giraldo to evaluate peripheral flow. Will likely need BKA. - Cardiology (Dr. Alford) consulted for cardiac clearance. - no cardiac contraindications to bka - tylenol for pain #DM - A1C 9.5 (from 10/2019) - Insulin sliding scale implemented - BGM ACHS - Gabapentin for neuropathy #HTN - c/w coreg #PAD - No claudications, absent pedal pulses - C/w with DAPT and statin #HFrEF - BNP >175,000. CXR reviewed. - Cardio (Dr. Alford) consulted. Recommendations appreciated - C/w Statin, plavix, asa, coreg - EKG NSR, similar to prior - 03/2019 Echo EF 13%, patient isn't experiencing sx associated with an exacerbation (orthopnea, NPD, SOB, etc), CXR neg for CHF - I/Os, daily weights, monitor for change in sx, manage with HD #ESRD ( M,W, F) - Nephrology (Dr. Pond) consulted. - Dialysis today (MWF) - AV graft placed 11/24/2019 #FEN -Not on standing fluids -Electrolytes wnl, will continue to monitor -Renal diet #Prophylaxis -Heparin 5,000 U -Pantoprazole 40mg QD #Disposition -Will continue to monitor patient on MS Visit type - Emergency Visit Emergency Visit: Yes ED Registration Date: 12/04/19 Care time: The patient presented to the Emergency Department on the above date and was hospitalized for further evaluation of their emergent condition. - New Patient This patient is new to me today: No - Critical Care Critical Care patient: No ATTENDING PHYSICIAN STATEMENT I saw and evaluated the patient. I reviewed the resident's note and discussed the case with the resident. I agree with the resident's findings and plan as documented. SUBJECTIVE: OBJECTIVE: ASSESSMENT AND PLAN:
[2019-12-08] MEDS ORDERED: SODIUM CHLORIDE 250 ML IV PRN (15:19)
--- NOTE | 2019-12-08 15:19 | PN ---
Progress Note, Physician History of Present Illness: Pt seen and examined at bedside. She is awake and alert. She denies shortness of breath. - Current Medication List Current Medications: Active Medications Acetaminophen (Tylenol -) 650 mg PO Q6H PRN PRN Reason: Fever Or Pain Ascorbic Acid (Vitamin C -) 500 mg PO DAILY [facility] Last Admin: 12/08/19 09:23 Dose: 500 mg Documented by: Aspirin (Asa -) 81 mg PO DAILY [facility] Last Admin: 12/08/19 09:24 Dose: 81 mg Documented by: Atorvastatin Calcium (Lipitor -) 80 mg PO HS [facility] Last Admin: 12/07/19 22:38 Dose: Not Given Documented by: Carvedilol (Coreg -) 3.125 mg PO HS [facility] Last Admin: 12/07/19 22:23 Dose: 3.125 mg Documented by: Clopidogrel Bisulfate (Plavix -) 75 mg PO DAILY [facility] Last Admin: 12/08/19 09:24 Dose: 75 mg Documented by: Fluticasone Propionate (Flonase -) 2 spray NS DAILY PRN PRN Reason: ALLERGIES Gabapentin (Neurontin -) 100 mg PO DAILY [facility] Last Admin: 12/08/19 09:23 Dose: 100 mg Documented by: Heparin Sodium (Porcine) (Heparin -) 5,000 unit SQ TID [facility] Last Admin: 12/08/19 14:54 Dose: 5,000 unit Documented by: Aztreonam 0.5 gm/ Dextrose 50 mls @ 100 mls/hr IVPB TID [facility]; Protocol Last Admin: 12/08/19 05:42 Dose: 100 mls/hr Documented by: Metronidazole (Flagyl 500mg Premixed Ivpb -) 500 mg in 100 mls @ 100 mls/hr IVPB TID [facility] Last Admin: 12/08/19 14:55 Dose: 100 mls/hr Documented by: Dextrose/Sodium Chloride (D5-1/2ns -) 1,000 mls @ 42 mls/hr IV ASDIR [facility] Insulin Aspart (Novolog Vial Sliding Scale -) 1 vial SQ TIDAC [facility]; Protocol Last Admin: 12/08/19 12:22 Dose: Not Given Documented by: Insulin Detemir (Levemir Vial) 4 units SQ AM [facility] Last Admin: 12/08/19 06:25 Dose: Not Given Documented by: Lidocaine/Prilocaine (Emla -) 1 applic TP DAILY PRN PRN Reason: PAIN Last Admin: 12/07/19 09:18 Dose: 1 applic Documented by: Loratadine (Claritin -) 10 mg PO HS [facility] Last Admin: 12/07/19 22:23 Dose: 10 mg Documented by: Melatonin (Melatonin) 5 mg PO HS PRN PRN Reason: INSOMNIA Last Admin: 12/05/19 21:52 Dose: 5 mg Documented by: Multivit/Ca Carb/B Cmplx/FA/Prenat (Nephro-Ivon -) 1 tablet PO DAILY [facility] Last Admin: 12/08/19 09:24 Dose: 1 tablet Documented by: Pantoprazole Sodium (Protonix -) 40 mg PO DAILY [facility] Last Admin: 12/08/19 09:24 Dose: 40 mg Documented by: Ropinirole HCl (Requip -) 0.5 mg PO HS [facility] Last Admin: 12/07/19 22:23 Dose: 0.5 mg Documented by: - Objective Vital Signs: Vital Signs Temperature 98.7 F 12/08/19 14:00 Pulse Rate 67 12/08/19 14:00 Respiratory Rate 12/08/19 14:00 Blood Pressure 109/53 L 12/08/19 14:00 O2 Sat by Pulse Oximetry (%) 95 12/08/19 14:00 Constitutional: Yes: Calm Eyes: Yes: Conjunctiva Clear HENT: Yes: Atraumatic Neck: Yes: Supple Cardiovascular: Yes: S1, S2 Respiratory: Yes: CTA Bilaterally Gastrointestinal: Yes: Normal Bowel Sounds, Soft Genitourinary: Yes: WNL Musculoskeletal: Yes: WNL Edema: No Wound/Incision: Yes: Dressing Dry and Intact Neurological: Yes: Oriented Psychiatric: Yes: Oriented Labs: CBC, BMP 12/08/19 07:45 12/08/19 07:45 INR, PTT INR 1.32 (0.83-1.09) H 12/04/19 13:55 Problem List - Problems (1) ESRD (end stage renal disease) Code(s): N18.6 - END STAGE RENAL DISEASE (2) Cellulitis Code(s): L03.90 - CELLULITIS, UNSPECIFIED Qualifiers: Site of cellulitis: extremity Site of cellulitis of extremity: lower extremity Laterality: unspecified laterality Qualified Code(s): L03.119 - Cellulitis of unspecified part of limb Assessment/Plan Current Medications Generic Name Dose Route Start Last Admin Trade Name Freq PRN Reason Stop Dose Admin Acetaminophen 650 mg 12/04/19 17:57 Tylenol - PO Q6H PRN Fever Or Pain Ascorbic Acid 500 mg 12/08/19 10:00 12/08/19 09:23 Vitamin C - PO 500 mg DAILY DEANNA Administration Aspirin 81 mg 12/05/19 10:00 12/08/19 09:24 Asa - PO 81 mg DAILY DEANNA Administration Atorvastatin Calcium 80 mg 12/04/19 22:00 12/07/19 22:38 Lipitor - PO Not Given HS [facility] Carvedilol 3.125 mg 12/04/19 22:00 12/07/19 22:23 Coreg - PO 3.125 mg HS [facility] Administration Clopidogrel Bisulfate 75 mg 12/05/19 10:00 12/08/19 09:24 Plavix - PO 75 mg DAILY DEANNA Administration Fluticasone Propionate 2 spray 12/05/19 10:00 Flonase - NS DAILY PRN ALLERGIES Gabapentin 100 mg 12/05/19 10:00 12/08/19 09:23 Neurontin - PO 100 mg DAILY [facility] Administration Heparin Sodium (Porcine) 5,000 unit 12/04/19 22:00 12/08/19 14:54 Heparin - SQ 5,000 unit TID [facility] Administration Aztreonam 0.5 gm/ Dextrose 50 mls @ 100 mls/hr 12/05/19 06:00 12/08/19 05:42 IVPB 100 mls/hr TID [facility] Administration Protocol Metronidazole 500 mg in 100 mls @ 100 mls/hr 12/04/19 22:30 12/08/19 14:55 Flagyl 500mg Premixed Ivpb - IVPB 100 mls/hr TID [facility] Administration Dextrose/Sodium Chloride 1,000 mls @ 42 mls/hr 12/08/19 12:45 D5-1/2ns - IV ASDIR [facility] Insulin Aspart 1 vial 12/05/19 07:00 12/08/19 12:22 Novolog Vial Sliding Scale - SQ Not Given TIDAC [facility] Protocol Insulin Detemir 4 units 12/05/19 07:00 12/08/19 06:25 Levemir Vial SQ Not Given AM [facility] Lidocaine/Prilocaine 1 applic 12/06/19 14:09 12/07/19 09:18 Emla - TP 1 applic DAILY PRN Administration PAIN Loratadine 10 mg 12/04/19 22:00 12/07/19 22:23 Claritin - PO 10 mg HS DEANNA Administration Melatonin 5 mg 12/04/19 18:15 12/05/19 21:52 Melatonin PO 5 mg HS PRN Administration INSOMNIA Multivit/Ca Carb/B Cmplx/FA/Prenat 1 tablet 12/08/19 10:00 12/08/19 09:24 Nephro-Ivon - PO 1 tablet DAILY DEANNA Administration Pantoprazole Sodium 40 mg 12/05/19 10:00 12/08/19 09:24 Protonix - PO 40 mg DAILY DEANNA Administration Ropinirole HCl 0.5 mg 12/04/19 22:45 12/07/19 22:23 Requip - PO 0.5 mg HS DEANNA Administration Impression 1. ESRD 2. CHF 3. DM 4. HTN 5. hyperlipidemia 6. nephrotic range proteinuria 7. CAD 8. lower ext infection Plan - HD tomorrow - epogen for anemia - follow angio - vascular follow up - podiatry follow up - renal diet - epogen for anemia with HD
--- NOTE | 2019-12-08 16:57 | PN ---
Progress Note (short form) - Note Progress Note: Vascular Surgery Pt seen and examined. Dressing on left foot changed. Angiograms reviewed. Pt will need left BKA. Due to pt's cardiac status, will stop plavix, so that she can get spinal anesthesia. Cardiology clearance for left BKA. Carlos Enrique Giraldo DO
[2019-12-08] MEDS: CARVEDILOL 3.125 MG TABLET (FP) PO SCH (21:09)
[2019-12-08] MEDS: LORATADINE 10 MG TABLET PO SCH (21:09)
[2019-12-08] MEDS: ATORVASTATIN CA 80 MG TABLET (FP) PO SCH (21:10)
[2019-12-08] MEDS: rOPINIRole HCL 0.25 MG TABLET PO SCH (21:10)
[2019-12-09] MEDS: HEPARIN NA (PORCINE) 5,000 UNITS/ML 1ML VIAL SQ SCH ×3 (06:41→21:24)
[2019-12-09] MEDS: AZTREONAM 0.5 GM in DEXTROSE 5%-WATER - 50 ML IVPB SCH ×3 (06:41→22:17)
[2019-12-09] MEDS: INSULIN SLIDING SCALE (NOVOLOG) 1 VIAL SQ SCH ×3 (06:42→17:50)
[2019-12-09] MEDS: INSULIN (LEVEMIR) 100 UNITS/ML UNITS SQ SCH (06:42)
[2019-12-09] MEDS: ASPIRIN 81 MG CHEWABLE TABLETS PO SCH (09:41)
[2019-12-09] MEDS: GABAPENTIN 100 MG CAPSULE PO SCH (09:41)
[2019-12-09] MEDS: PANTOPRAZOLE 40 MG TABLET PO SCH (09:41)
[2019-12-09] MEDS: ASCORBIC ACID 500 MG TABLET (FP) PO SCH (09:41)
[2019-12-09] MEDS: VITAMIN B COMP W-C 1 EA TABLET (NEPHRO-VITE) PO SCH (09:42)
[2019-12-09] MEDS: HEPARIN NA (PORCINE) 5,000 UNITS/ML 1ML VIAL IVPUSH SCH ×3 (09:45→11:45)
[2019-12-09] MEDS ORDERED: EPOETIN ALFA-EPBX 10,000 UNIT, EPOETIN ALFA-EPBX 4,000 UNIT IVPUSH ONE (09:45)
[2019-12-09] MEDS ORDERED: HEPARIN NA (PORCINE) 5,000 UNITS/ML 1ML VIAL IVPUSH ONE (09:45)
--- NOTE | 2019-12-09 10:53 | PN ---
Progress Note, Physician History of Present Illness: stable wounds clean now - Current Medication List Current Medications: Active Medications Acetaminophen (Tylenol -) 650 mg PO Q6H PRN PRN Reason: Fever Or Pain Ascorbic Acid (Vitamin C -) 500 mg PO DAILY [facility] Last Admin: 12/09/19 09:41 Dose: 500 mg Documented by: Aspirin (Asa -) 81 mg PO DAILY [facility] Last Admin: 12/09/19 09:41 Dose: 81 mg Documented by: Atorvastatin Calcium (Lipitor -) 80 mg PO HS [facility] Last Admin: 12/08/19 21:10 Dose: Not Given Documented by: Carvedilol (Coreg -) 3.125 mg PO HS [facility] Last Admin: 12/08/19 21:09 Dose: Not Given Documented by: Fluticasone Propionate (Flonase -) 2 spray NS DAILY PRN PRN Reason: ALLERGIES Gabapentin (Neurontin -) 100 mg PO DAILY [facility] Last Admin: 12/09/19 09:41 Dose: 100 mg Documented by: Heparin Sodium (Porcine) (Heparin -) 5,000 unit SQ TID [facility] Last Admin: 12/09/19 06:41 Dose: 5,000 unit Documented by: Heparin Sodium (Porcine) (Heparin -) 300 unit IVPUSH Q1H [facility] Stop: 12/09/19 11:46 Aztreonam 0.5 gm/ Dextrose 50 mls @ 100 mls/hr IVPB TID [facility]; Protocol Last Admin: 12/09/19 06:41 Dose: 100 mls/hr Documented by: Metronidazole (Flagyl 500mg Premixed Ivpb -) 500 mg in 100 mls @ 100 mls/hr IVPB TID [facility] Last Admin: 12/09/19 06:30 Dose: 100 mls/hr Documented by: Dextrose/Sodium Chloride (D5-1/2ns -) 1,000 mls @ 42 mls/hr IV ASDIR [facility] Sodium Chloride (Normal Saline -) 250 mls @ 3,000 mls/hr IV PRN PRN PRN Reason: Hypotension during Dialysis Stop: 12/09/19 15:19 Insulin Aspart (Novolog Vial Sliding Scale -) 1 vial SQ TIDAC [facility]; Protocol Last Admin: 12/09/19 06:42 Dose: 2 units Documented by: Insulin Detemir (Levemir Vial) 4 units SQ AM [facility] Last Admin: 12/09/19 06:42 Dose: 4 units Documented by: Lidocaine/Prilocaine (Emla -) 1 applic TP DAILY PRN PRN Reason: PAIN Last Admin: 12/07/19 09:18 Dose: 1 applic Documented by: Loratadine (Claritin -) 10 mg PO HS [facility] Last Admin: 12/08/19 21:09 Dose: 10 mg Documented by: Melatonin (Melatonin) 5 mg PO HS PRN PRN Reason: INSOMNIA Last Admin: 12/05/19 21:52 Dose: 5 mg Documented by: Multivit/Ca Carb/B Cmplx/FA/Prenat (Nephro-Ivon -) 1 tablet PO DAILY [facility] Last Admin: 12/09/19 09:42 Dose: 1 tablet Documented by: Pantoprazole Sodium (Protonix -) 40 mg PO DAILY [facility] Last Admin: 12/09/19 09:41 Dose: 40 mg Documented by: Ropinirole HCl (Requip -) 0.5 mg PO HS [facility] Last Admin: 12/08/19 21:10 Dose: 0.5 mg Documented by: - Objective Vital Signs: Vital Signs Temperature 97.9 F 12/09/19 09:39 Pulse Rate 72 12/09/19 09:39 Respiratory Rate 19 12/09/19 09:39 Blood Pressure 110/73 12/09/19 09:39 O2 Sat by Pulse Oximetry (%) 96 12/09/19 09:39 Constitutional: Yes: No Distress, Calm Cardiovascular: Yes: S1, S2 Respiratory: Yes: Regular, CTA Bilaterally Gastrointestinal: Yes: Normal Bowel Sounds, Soft Musculoskeletal: Yes: WNL Extremities: Yes: Other Neurological: Yes: Alert, Oriented Psychiatric: Yes: Alert, Oriented Labs: CBC, BMP 12/08/19 07:45 12/08/19 07:45 INR, PTT INR 1.32 (0.83-1.09) H 12/04/19 13:55 Assessment/Plan 59 yo F with PMH of ESRD (M/W/F), DM, HTN, CAD( S/P CABG), HFrEF( S/P ICD), PVD (S/P right metatarsal amputation) presents to ED for worsening L foot infection. cellulitis gangrene of the foot dm htn hferp esrd plan abx wound care rest as per the team
[2019-12-09 11:35] LABS: BASO % 1.2 % (0-2.0); EOS % 4.1 % (0-4.5); HEMATOCRIT 30.1 % (32.4-45.2); HEMOGLOBIN 9.3 GM/dL (10.7-15.3); LYMPH % 17.1 % (8-40); MCH 32.4 pg (25.7-33.7); MCHC 30.8 g/dl (32.0-36.0); MEAN CELL VOLUME 105.1 fl (80-96); MEAN PLT VOLUME 9.2 fl (7.5-11.1); MONO % 10.3 % (3.8-10.2); NEUT % 67.3 % (42.8-82.8); PLATELET COUNT 150 K/MM3 (134-434); RBC 2.87 M/mm3 (3.60-5.2); RDW 21.4 % (11.6-15.6); WHITE BLOOD COUNT 6.6 K/mm3 (4.0-10.0)
--- NOTE | 2019-12-09 11:47 | PN ---
Teaching Attending Note Name of Resident: Lupis Farrell ATTENDING PHYSICIAN STATEMENT I saw and evaluated the patient. I reviewed the resident's note and discussed the case with the resident. I agree with the resident's findings and plan as documented. SUBJECTIVE: pt seen and examined at bedside, feeling fluid in ears OBJECTIVE: Last Vital Signs Temp Pulse Resp BP Pulse Ox 98.2 F 74 18 135/57 L 96 12/09/19 10:45 12/09/19 10:55 12/09/19 10:55 12/09/19 10:55 12/09/19 09:39 GENERAL: Awake, alert, and fully oriented, in no acute distress. ENT: ears examined no wax, normal TM LUNGS: fine rales bilaterally. No accessory muscle use. HEART: Regular rate and rhythm, normal S1 and S2 with 3/6 systolic murmur @ LSB, rub or gallop. ABDOMEN: Soft, nontender, not distended, normoactive bowel sounds, no guarding, no rebound, no masses. No hepatomegaly or splenomegaly. UPPER EXTREMITIES: rt AV graft LOWER EXTREMITIES: No peripheral edema, unable to feel dorsalis pedis bilaterally, posterior tibial +1 Rt, unable to feel on left, both legs warm, amputated rt 2nd toe SKIN: bilaterally dry gangrene on both feet, CBCD WBC 6.6 K/mm3 (4.0-10.0) 12/09/19 10:50 RBC 2.87 M/mm3 (3.60-5.2) L 12/09/19 10:50 Hgb 9.3 GM/dL (10.7-15.3) L 12/09/19 10:50 Hct 30.1 % (32.4-45.2) L 12/09/19 10:50 MCV 105.1 fl (80-96) H 12/09/19 10:50 MCHC 30.8 g/dl (32.0-36.0) L 12/09/19 10:50 RDW 21.4 % (11.6-15.6) H 12/09/19 10:50 Plt Count 150 K/MM3 (134-434) D 12/09/19 10:50 MPV 9.2 fl (7.5-11.1) 12/09/19 10:50 CMP Sodium 143 mmol/L (136-145) 12/08/19 07:45 Potassium 3.8 mmol/L (3.5-5.1) 12/08/19 07:45 Chloride 106 mmol/L (98-107) 12/08/19 07:45 Carbon Dioxide 29 mmol/L (21-32) 12/08/19 07:45 Anion Gap 8 MMOL/L (8-16) 12/08/19 07:45 BUN 16.6 mg/dL (7-18) 12/08/19 07:45 Creatinine 3.7 mg/dL (0.55-1.3) H 12/08/19 07:45 Calcium 7.7 mg/dL (8.5-10.1) L 12/08/19 07:45 Total Bilirubin 0.9 mg/dL (0.2-1) 12/07/19 11:10 AST 10 U/L (15-37) L 12/07/19 11:10 ALT 8 U/L (13-61) L 12/07/19 11:10 Alkaline Phosphatase 226 U/L (45-117) H 12/07/19 11:10 Total Protein 5.1 g/dl (6.4-8.2) L 12/07/19 11:10 Albumin 2.1 g/dl (3.4-5.0) L 12/07/19 11:10 ASSESSMENT AND PLAN: # sepsis due to Diabetic foot ulcer, cellulitis and gangrene - no fever, non tachy, WBC trended down - pain management as indicated - c/w IV abx, ID consult appreciated - wound culture grew multiple organisms - Vascular surgeon to plan BKA with spinal anesthesia, off plavix, c/w ASA - pt in agreement with BKA - need for surgery, risks and benefits discussed with patient who voiced verbal understanding, RCRI score 5, high risk - cement worker cleared pt from cardiac standpoint for surgery - vascular consult appreciated - cardiology consult appreciated #ESRD on HD - AVG graft + perm-a-cath - MWF HD - senior oracle database administrator consult - renal dose of medication # DM with Diabetic neuropathy - ISS +_levemer - gabapentin 100mg QD # HFrEF, CAD - on ICD - cardiology consult, strict I/O # DVT prophylaxis, fall precautions.
[2019-12-09 11:58] LABS: ANISOCYTOSIS 2+
[2019-12-09 11:59] LABS: OVALOCYTE FEW; PLATELET ESTIMATE ADEQUATE
[2019-12-09 12:00] LABS: BLOOD UREA NITROGEN 24.3 mg/dL (7-18); CALCIUM 7.7 mg/dL (8.5-10.1); CREATININE 4.8 mg/dL (0.55-1.3); POTASSIUM 3.9 mmol/L (3.5-5.1)
--- NOTE | 2019-12-09 12:40 | PN ---
Physical Exam: SUBJECTIVE: Patient seen and examined OBJECTIVE: Vital Signs Temperature 98.2 F 12/09/19 10:45 Pulse Rate 74 12/09/19 10:55 Respiratory Rate 18 12/09/19 10:55 Blood Pressure 135/57 L 12/09/19 10:55 O2 Sat by Pulse Oximetry (%) 96 12/09/19 10:00 GENERAL: The patient is awake, alert, and fully oriented, in no acute distress. NECK: Trachea midline, full range of motion, supple. LUNGS: Breath sounds equal, clear to auscultation bilaterally HEART: Regular rate and rhythm, S1, S2 ABDOMEN: Soft, nontender, nondistended, normoactive bowel sounds EXTREMITIES: no palpable pedal pulses bilaterally; RLE: 2nd digit amputated with ulceration but no erythema, right heel with diffuse eschar. LLE: all digits with ulcerations/eschar, extending to dorsum of left foot NEUROLOGICAL: Cranial nerves II through XII grossly intact. Normal speech PSYCH: Normal mood, normal affect. SKIN: Warm, dry, normal turgor Laboratory Results - last 24 hr 12/08/19 12/08/19 12/08/19 13:03 16:47 21:05 WBC RBC Hgb Hct MCV MCH MCHC RDW Plt Count MPV Absolute Neuts (auto) Neutrophils % Lymphocytes % Monocytes % Eosinophils % Basophils % Nucleated RBC % Platelet Estimate Anisocytosis Ovalocytes Sodium Potassium Chloride Carbon Dioxide Anion Gap BUN Creatinine Est GFR (CKD-EPI)AfAm Est GFR (CKD-EPI)NonAf POC Glucometer 85 218 264 Random Glucose Calcium 12/09/19 12/09/19 12/09/19 06:23 10:50 10:50 WBC 6.6 RBC 2.87 L Hgb 9.3 L Hct 30.1 L MCV 105.1 H MCH 32.4 MCHC 30.8 L RDW 21.4 H Plt Count 150 D MPV 9.2 Absolute Neuts (auto) 4.4 Neutrophils % 67.3 Lymphocytes % 17.1 Monocytes % 10.3 H Eosinophils % 4.1 D Basophils % 1.2 Nucleated RBC % 0 Platelet Estimate Adequate Anisocytosis 2+ Ovalocytes Few Sodium 140 Potassium 3.9 Chloride 104 Carbon Dioxide 24 Anion Gap 12 BUN 24.3 H Creatinine 4.8 H Est GFR (CKD-EPI)AfAm 10.72 Est GFR (CKD-EPI)NonAf 9.25 POC Glucometer 160 Random Glucose 261 H Calcium 7.7 L Active Medications Generic Name Dose Route Start Last Admin Trade Name Freq PRN Reason Stop Dose Admin Acetaminophen 650 mg 12/04/19 17:57 Tylenol - PO Q6H PRN Fever Or Pain Ascorbic Acid 500 mg 12/08/19 10:00 12/09/19 09:41 Vitamin C - PO 500 mg DAILY DEANNA Administration Aspirin 81 mg 12/05/19 10:00 12/09/19 09:41 Asa - PO 81 mg DAILY DEANNA Administration Atorvastatin Calcium 80 mg 12/04/19 22:00 12/08/19 21:10 Lipitor - PO Not Given HS DEANNA Carvedilol 3.125 mg 12/04/19 22:00 12/08/19 21:09 Coreg - PO Not Given HS DEANNA Fluticasone Propionate 2 spray 12/05/19 10:00 Flonase - NS DAILY PRN ALLERGIES Gabapentin 100 mg 12/05/19 10:00 12/09/19 09:41 Neurontin - PO 100 mg DAILY DEANNA Administration Heparin Sodium (Porcine) 5,000 unit 12/04/19 22:00 12/09/19 06:41 Heparin - SQ 5,000 unit TID DEANNA Administration Aztreonam 0.5 gm/ Dextrose 50 mls @ 100 mls/hr 12/05/19 06:00 12/09/19 06:41 IVPB 100 mls/hr TID DEANNA Administration Protocol Metronidazole 500 mg in 100 mls @ 100 mls/hr 12/04/19 22:30 12/09/19 06:30 Flagyl 500mg Premixed Ivpb - IVPB 100 mls/hr TID DEANNA Administration Sodium Chloride 250 mls @ 3,000 mls/hr 12/08/19 15:19 Normal Saline - IV 12/09/19 15:19 PRN PRN Hypotension during Dialysis Insulin Aspart 1 vial 12/05/19 07:00 12/09/19 06:42 Novolog Vial Sliding Scale - SQ 2 units TIDAC DEANNA Administration Protocol Insulin Detemir 4 units 12/05/19 07:00 12/09/19 06:42 Levemir Vial SQ 4 units AM DEANNA Administration Lidocaine/Prilocaine 1 applic 12/06/19 14:09 12/07/19 09:18 Emla - TP 1 applic DAILY PRN Administration PAIN Loratadine 10 mg 12/04/19 22:00 12/08/19 21:09 Claritin - PO 10 mg HS DEANNA Administration Melatonin 5 mg 12/04/19 18:15 12/05/19 21:52 Melatonin PO 5 mg HS PRN Administration INSOMNIA Multivit/Ca Carb/B Cmplx/FA/Prenat 1 tablet 12/08/19 10:00 12/09/19 09:42 Nephro-Ivon - PO 1 tablet DAILY DEANNA Administration Pantoprazole Sodium 40 mg 12/05/19 10:00 12/09/19 09:41 Protonix - PO 40 mg DAILY DEANNA Administration Ropinirole HCl 0.5 mg 12/04/19 22:45 12/08/19 21:10 Requip - PO 0.5 mg HS DEANNA Administration ASSESSMENT/PLAN: Patient is a 59 year old female with past medical history of HTN, PAD, CAD(s/p CABG), HFrEF(s/p ICD), ESRD (MWF), DM, right second toe amputation and chronic wound drainage on her left foot since early May, presented to the ED on 12/03 with worsening cellulitis of the foot with the presence of maggots that she had noticed that morning. She had been receiving routine wound care up until 2 weeks ago when she had an AV graft placement done in the right arm. #Sepsis 2/2 Gangrene, Cellulitis (b/l) L>R - Aztreonam 0.5g TID and flagyl 500mg TID - wound cx : Klebsiella, staph, VRE faecium - blood cx no growth to date - XR foot, Lt - May be a soft tissue ulceration by the MCP joints in the lateral view. Osteomyelitis can't be ruled out - ID (Dr. Charles) consulted, Vascular (Dr. Giraldo), and Podiatry (Dr. Copeland) following. Recommendations appreciated - Local care with betadine to all areas bilateral feet - f/u CTA with LE runoff results - Pt will need left BKA as per vascular surgery. - Due to pt's cardiac status, will stop plavix, so that she can get spinal anesthesia. - Cardiology (Dr. Alford) consulted for cardiac clearance. - no cardiac contraindications to bka - tylenol for pain #DM - A1C 9.5 (from 10/2019) - Insulin sliding scale implemented - BGM ACHS - Gabapentin for neuropathy #HTN - c/w coreg #PAD - No claudications, absent pedal pulses - C/w with DAPT and statin #HFrEF - BNP >175,000. CXR reviewed. - Cardio (Dr. Alford) consulted. Recommendations appreciated - C/w Statin, plavix, asa, coreg - EKG NSR, similar to prior - 03/2019 Echo EF 13%, patient isn't experiencing sx associated with an exacerbation (orthopnea, NPD, SOB, etc), CXR neg for CHF - I/Os, daily weights, monitor for change in sx, manage with HD #ESRD ( M,W, F) - Nephrology (Dr. Pond) consulted. - Dialysis today (MWF) - AV graft placed 11/24/2019 #FEN -Not on standing fluids -Electrolytes wnl, will continue to monitor -Renal diet #Prophylaxis -Heparin 5,000 U tid -Pantoprazole 40mg QD #Disposition -Will continue to monitor patient on MS Visit type - Emergency Visit Emergency Visit: Yes ED Registration Date: 12/04/19 Care time: The patient presented to the Emergency Department on the above date and was hospitalized for further evaluation of their emergent condition. - New Patient This patient is new to me today: No - Critical Care Critical Care patient: No ATTENDING PHYSICIAN STATEMENT I saw and evaluated the patient. I reviewed the resident's note and discussed the case with the resident. I agree with the resident's findings and plan as documented. SUBJECTIVE: OBJECTIVE: ASSESSMENT AND PLAN:
--- NOTE | 2019-12-09 12:43 | PN ---
Progress Note, Physician Chief Complaint: seen and examined at HD No CP/SOB beyond baseline No dizziness - Current Medication List Current Medications: Active Medications Acetaminophen (Tylenol -) 650 mg PO Q6H PRN PRN Reason: Fever Or Pain Ascorbic Acid (Vitamin C -) 500 mg PO DAILY [facility] Last Admin: 12/09/19 09:41 Dose: 500 mg Documented by: Aspirin (Asa -) 81 mg PO DAILY [facility] Last Admin: 12/09/19 09:41 Dose: 81 mg Documented by: Atorvastatin Calcium (Lipitor -) 80 mg PO HS [facility] Last Admin: 12/08/19 21:10 Dose: Not Given Documented by: Carvedilol (Coreg -) 3.125 mg PO HS [facility] Last Admin: 12/08/19 21:09 Dose: Not Given Documented by: Fluticasone Propionate (Flonase -) 2 spray NS DAILY PRN PRN Reason: ALLERGIES Gabapentin (Neurontin -) 100 mg PO DAILY [facility] Last Admin: 12/09/19 09:41 Dose: 100 mg Documented by: Heparin Sodium (Porcine) (Heparin -) 5,000 unit SQ TID [facility] Last Admin: 12/09/19 06:41 Dose: 5,000 unit Documented by: Aztreonam 0.5 gm/ Dextrose 50 mls @ 100 mls/hr IVPB TID [facility]; Protocol Last Admin: 12/09/19 06:41 Dose: 100 mls/hr Documented by: Metronidazole (Flagyl 500mg Premixed Ivpb -) 500 mg in 100 mls @ 100 mls/hr IVPB TID [facility] Last Admin: 12/09/19 06:30 Dose: 100 mls/hr Documented by: Sodium Chloride (Normal Saline -) 250 mls @ 3,000 mls/hr IV PRN PRN PRN Reason: Hypotension during Dialysis Stop: 12/09/19 15:19 Insulin Aspart (Novolog Vial Sliding Scale -) 1 vial SQ TIDAC [facility]; Protocol Last Admin: 12/09/19 06:42 Dose: 2 units Documented by: Insulin Detemir (Levemir Vial) 4 units SQ AM [facility] Last Admin: 12/09/19 06:42 Dose: 4 units Documented by: Lidocaine/Prilocaine (Emla -) 1 applic TP DAILY PRN PRN Reason: PAIN Last Admin: 12/07/19 09:18 Dose: 1 applic Documented by: Loratadine (Claritin -) 10 mg PO HS [facility] Last Admin: 12/08/19 21:09 Dose: 10 mg Documented by: Melatonin (Melatonin) 5 mg PO HS PRN PRN Reason: INSOMNIA Last Admin: 12/05/19 21:52 Dose: 5 mg Documented by: Multivit/Ca Carb/B Cmplx/FA/Prenat (Nephro-Ivon -) 1 tablet PO DAILY [facility] Last Admin: 12/09/19 09:42 Dose: 1 tablet Documented by: Pantoprazole Sodium (Protonix -) 40 mg PO DAILY [facility] Last Admin: 12/09/19 09:41 Dose: 40 mg Documented by: Ropinirole HCl (Requip -) 0.5 mg PO [facility] Last Admin: 12/08/19 21:10 Dose: 0.5 mg Documented by: - Objective Vital Signs: Vital Signs Temperature 98.2 F 12/09/19 10:45 Pulse Rate 74 12/09/19 10:55 Respiratory Rate 18 12/09/19 10:55 Blood Pressure 135/57 L 12/09/19 10:55 O2 Sat by Pulse Oximetry (%) 96 12/09/19 10:00 Constitutional: Yes: No Distress, Calm Eyes: Yes: Conjunctiva Clear Cardiovascular: Yes: Regular Rate and Rhythm Respiratory: Yes: CTA Bilaterally Gastrointestinal: Yes: Soft (nt) Edema: No Neurological: Yes: Alert, Oriented Labs: CBC, BMP 12/09/19 10:50 12/09/19 10:50 INR, PTT INR 1.32 (0.83-1.09) H 12/04/19 13:55 Microbiology 12/04/19 14:10 Wound Gram Stain - Final 12/04/19 14:10 Wound Wound Culture - Final Klebsiella Oxytoca Staphylococcus Coagulase Neg Vr Ec Faecium Yeast Like Organism 12/04/19 13:55 Blood - Peripheral Venous Blood Culture - Preliminary NO GROWTH OBTAINED AFTER 96 HOURS, INCUBATION TO CONTINUE FOR 1 DAYS. 12/04/19 13:55 Blood - Peripheral Venous Blood Culture - Preliminary NO GROWTH OBTAINED AFTER 96 HOURS, INCUBATION TO CONTINUE FOR 1 DAYS. Laboratory Tests 12/04/19 12/09/19 12/09/19 13:55 10:50 10:50 WBC 6.6 Hgb 9.3 L Plt Count 150 D Sodium 140 Potassium 3.9 Creatinine 4.8 H Calcium 7.7 L COVID-19 (RICHARD) Not detected Assessment/Plan EKG: sinus, nl intervals, lvh with repol, similar to prior echo 03/2019 tds, mod to sev MR, mild to mod ao sclerosis, severe TR, severely reduced LV function, RVSP >60 mmHg, LV/RV not well visualized, mild to mod AR mibi 03/2019 mod size inferolateral infarct with mild марина-infarct ischemia, global hypokinesis, EF 13% cxr: no chf a/p: 59F h/o CAD s/p CABG, chronic systolic HF s/p ICD, DM, ESRD on HD chronic L foot wound p/w worsening foot wound. chronic systolic HF, s/p ICD: - appears euvolemic - volume management per renal with HD - continue carvedilol, additional chf meds limited by low BP in the past CAD s/p CABG: - stable, no angina, no signs acs - cont statin, asa, bb - recent mibi w/o significant ischemia DM: - manage per primary pad, non healing wound, gangrene: - bka planned -no absolute cardiac contraindications to bka; periop management of Aspirin as per Vascular surgery
[2019-12-09] MEDS ORDERED: EPOETIN ALFA 10,000 UNIT/1 ML VIAL IVPUSH ONE (15:19)
--- NOTE | 2019-12-09 15:51 | PN ---
Progress Note, Physician History of Present Illness: Pt seen and examined at bedside. She is tolerating HD. - Current Medication List Current Medications: Active Medications Acetaminophen (Tylenol -) 650 mg PO Q6H PRN PRN Reason: Fever Or Pain Ascorbic Acid (Vitamin C -) 500 mg PO DAILY [facility] Last Admin: 12/09/19 09:41 Dose: 500 mg Documented by: Aspirin (Asa -) 81 mg PO DAILY [facility] Last Admin: 12/09/19 09:41 Dose: 81 mg Documented by: Atorvastatin Calcium (Lipitor -) 80 mg PO HS [facility] Last Admin: 12/08/19 21:10 Dose: Not Given Documented by: Carvedilol (Coreg -) 3.125 mg PO HS [facility] Last Admin: 12/08/19 21:09 Dose: Not Given Documented by: Fluticasone Propionate (Flonase -) 2 spray NS DAILY PRN PRN Reason: ALLERGIES Gabapentin (Neurontin -) 100 mg PO DAILY [facility] Last Admin: 12/09/19 09:41 Dose: 100 mg Documented by: Heparin Sodium (Porcine) (Heparin -) 5,000 unit SQ TID [facility] Last Admin: 12/09/19 15:05 Dose: Not Given Documented by: Aztreonam 0.5 gm/ Dextrose 50 mls @ 100 mls/hr IVPB TID [facility]; Protocol Last Admin: 12/09/19 14:44 Dose: 100 mls/hr Documented by: Metronidazole (Flagyl 500mg Premixed Ivpb -) 500 mg in 100 mls @ 100 mls/hr IVPB TID [facility] Last Admin: 12/09/19 14:44 Dose: 100 mls/hr Documented by: Insulin Aspart (Novolog Vial Sliding Scale -) 1 vial SQ TIDAC [facility]; Protocol Last Admin: 12/09/19 14:49 Dose: 2 units Documented by: Insulin Detemir (Levemir Vial) 4 units SQ AM [facility] Last Admin: 12/09/19 06:42 Dose: 4 units Documented by: Lidocaine/Prilocaine (Emla -) 1 applic TP DAILY PRN PRN Reason: PAIN Last Admin: 12/07/19 09:18 Dose: 1 applic Documented by: Loratadine (Claritin -) 10 mg PO HS [facility] Last Admin: 12/08/19 21:09 Dose: 10 mg Documented by: Melatonin (Melatonin) 5 mg PO HS PRN PRN Reason: INSOMNIA Last Admin: 12/05/19 21:52 Dose: 5 mg Documented by: Multivit/Ca Carb/B Cmplx/FA/Prenat (Nephro-Ivon -) 1 tablet PO DAILY [facility] Last Admin: 12/09/19 09:42 Dose: 1 tablet Documented by: Pantoprazole Sodium (Protonix -) 40 mg PO DAILY [facility] Last Admin: 12/09/19 09:41 Dose: 40 mg Documented by: Ropinirole HCl (Requip -) 0.5 mg PO [facility] Last Admin: 12/08/19 21:10 Dose: 0.5 mg Documented by: - Objective Vital Signs: Vital Signs Temperature 98.2 F 12/09/19 10:45 Pulse Rate 85 12/09/19 14:23 Respiratory Rate 18 12/09/19 14:23 Blood Pressure 125/95 12/09/19 14:23 O2 Sat by Pulse Oximetry (%) 96 12/09/19 10:00 Constitutional: Yes: Calm Eyes: Yes: Conjunctiva Clear HENT: Yes: Atraumatic Neck: Yes: Supple Cardiovascular: Yes: S1, S2 Respiratory: Yes: CTA Bilaterally Gastrointestinal: Yes: Normal Bowel Sounds, Soft Genitourinary: Yes: WNL Edema: No Wound/Incision: Yes: Dressing Dry and Intact Neurological: Yes: Oriented Psychiatric: Yes: Oriented Labs: CBC, BMP 12/09/19 10:50 12/09/19 10:50 INR, PTT INR 1.32 (0.83-1.09) H 12/04/19 13:55 Problem List - Problems (1) ESRD (end stage renal disease) Code(s): N18.6 - END STAGE RENAL DISEASE (2) Cellulitis Code(s): L03.90 - CELLULITIS, UNSPECIFIED Qualifiers: Site of cellulitis: extremity Site of cellulitis of extremity: lower extremity Laterality: unspecified laterality Qualified Code(s): L03.119 - Cellulitis of unspecified part of limb Assessment/Plan Current Medications Generic Name Dose Route Start Last Admin Trade Name Freq PRN Reason Stop Dose Admin Acetaminophen 650 mg 12/04/19 17:57 Tylenol - PO Q6H PRN Fever Or Pain Ascorbic Acid 500 mg 12/08/19 10:00 12/09/19 09:41 Vitamin C - PO 500 mg DAILY DEANNA Administration Aspirin 81 mg 12/05/19 10:00 12/09/19 09:41 Asa - PO 81 mg DAILY DEANNA Administration Atorvastatin Calcium 80 mg 12/04/19 22:00 12/08/19 21:10 Lipitor - PO Not Given HS DEANNA Carvedilol 3.125 mg 12/04/19 22:00 12/08/19 21:09 Coreg - PO Not Given HS DEANNA Fluticasone Propionate 2 spray 12/05/19 10:00 Flonase - NS DAILY PRN ALLERGIES Gabapentin 100 mg 12/05/19 10:00 12/09/19 09:41 Neurontin - PO 100 mg DAILY DEANNA Administration Heparin Sodium (Porcine) 5,000 unit 12/04/19 22:00 12/09/19 15:05 Heparin - SQ Not Given TID [facility]ANNA Aztreonam 0.5 gm/ Dextrose 50 mls @ 100 mls/hr 12/05/19 06:00 12/09/19 14:44 IVPB 100 mls/hr TID DEANNA Administration Protocol Metronidazole 500 mg in 100 mls @ 100 mls/hr 12/04/19 22:30 12/09/19 14:44 Flagyl 500mg Premixed Ivpb - IVPB 100 mls/hr TID DEANNA Administration Insulin Aspart 1 vial 12/05/19 07:00 12/09/19 14:49 Novolog Vial Sliding Scale - SQ 2 units TIDAC DEANNA Administration Protocol Insulin Detemir 4 units 12/05/19 07:00 12/09/19 06:42 Levemir Vial SQ 4 units AM [facility]NA Administration Lidocaine/Prilocaine 1 applic 12/06/19 14:09 12/07/19 09:18 Emla - TP 1 applic DAILY PRN Administration PAIN Loratadine 10 mg 12/04/19 22:00 12/08/19 21:09 Claritin - PO 10 mg HS DEANNA Administration Melatonin 5 mg 12/04/19 18:15 12/05/19 21:52 Melatonin PO 5 mg HS PRN Administration INSOMNIA Multivit/Ca Carb/B Cmplx/FA/Prenat 1 tablet 12/08/19 10:00 12/09/19 09:42 Nephro-Ivon - PO 1 tablet DAILY [facility]ANNA Administration Pantoprazole Sodium 40 mg 12/05/19 10:00 12/09/19 09:41 Protonix - PO 40 mg DAILY [facility]NA Administration Ropinirole HCl 0.5 mg 12/04/19 22:45 12/08/19 21:10 Requip - PO 0.5 mg HS DEANNA Administration Impression 1. ESRD 2. CHF 3. DM 4. HTN 5. hyperlipidemia 6. nephrotic range proteinuria 7. CAD 8. lower ext infection Plan - HD today - cont epogen - plavix on hold for amputation - vascular follow up - podiatry follow up - renal diet
[2019-12-09] MEDS: CARVEDILOL 3.125 MG TABLET (FP) PO SCH (21:24)
[2019-12-09] MEDS: LORATADINE 10 MG TABLET PO SCH (21:24)
[2019-12-09] MEDS: ATORVASTATIN CA 80 MG TABLET (FP) PO SCH (21:25)
[2019-12-09] MEDS: rOPINIRole HCL 0.25 MG TABLET PO SCH (22:17)
[2019-12-10] MEDS: AZTREONAM 0.5 GM in DEXTROSE 5%-WATER - 50 ML IVPB SCH ×3 (05:09→21:51)
[2019-12-10] MEDS: HEPARIN NA (PORCINE) 5,000 UNITS/ML 1ML VIAL SQ SCH ×3 (05:57→21:52)
[2019-12-10] MEDS: INSULIN (LEVEMIR) 100 UNITS/ML UNITS SQ SCH (06:04)
[2019-12-10] MEDS: INSULIN SLIDING SCALE (NOVOLOG) 1 VIAL SQ SCH ×3 (06:05→17:13)
[2019-12-10] MEDS ORDERED: SODIUM CHLORIDE 250 ML IV PRN (08:04)
[2019-12-10] MEDS: LIDOCAINE 2.5%/PRILOCAINE 2.5% (5 Gram/TUBE) TP PRN (08:15)
[2019-12-10] MEDS ORDERED: HEPARIN NA (PORCINE) 5,000 UNITS/ML 1ML VIAL IVPUSH ONE (09:00)
--- NOTE | 2019-12-10 10:09 | PN ---
Progress Note, Physician History of Present Illness: stable no new issues - Current Medication List Current Medications: Active Medications Acetaminophen (Tylenol -) 650 mg PO Q6H PRN PRN Reason: Fever Or Pain Ascorbic Acid (Vitamin C -) 500 mg PO DAILY [facility] Last Admin: 12/09/19 09:41 Dose: 500 mg Documented by: Aspirin (Asa -) 81 mg PO DAILY [facility] Last Admin: 12/09/19 09:41 Dose: 81 mg Documented by: Atorvastatin Calcium (Lipitor -) 80 mg PO HS [facility] Last Admin: 12/09/19 21:25 Dose: Not Given Documented by: Carvedilol (Coreg -) 3.125 mg PO HS [facility] Last Admin: 12/09/19 21:24 Dose: 3.125 mg Documented by: Fluticasone Propionate (Flonase -) 2 spray NS DAILY PRN PRN Reason: ALLERGIES Gabapentin (Neurontin -) 100 mg PO DAILY [facility] Last Admin: 12/09/19 09:41 Dose: 100 mg Documented by: Heparin Sodium (Porcine) (Heparin -) 5,000 unit SQ TID [facility] Last Admin: 12/10/19 05:57 Dose: 5,000 unit Documented by: Heparin Sodium (Porcine) (Heparin -) 300 unit IVPUSH Q1H [facility] Stop: 12/10/19 11:01 Aztreonam 0.5 gm/ Dextrose 50 mls @ 100 mls/hr IVPB TID [facility]; Protocol Last Admin: 12/10/19 05:09 Dose: 100 mls/hr Documented by: Metronidazole (Flagyl 500mg Premixed Ivpb -) 500 mg in 100 mls @ 100 mls/hr IVPB TID [facility] Last Admin: 12/10/19 05:58 Dose: 100 mls/hr Documented by: Sodium Chloride (Normal Saline -) 250 mls @ 3,000 mls/hr IV PRN PRN PRN Reason: Hypotension during Dialysis Stop: 12/11/19 08:04 Insulin Aspart (Novolog Vial Sliding Scale -) 1 vial SQ TIDAC [facility]; Protocol Last Admin: 12/10/19 06:05 Dose: 2 units Documented by: Insulin Detemir (Levemir Vial) 4 units SQ AM [facility] Last Admin: 12/10/19 06:04 Dose: 4 units Documented by: Lidocaine/Prilocaine (Emla -) 1 applic TP DAILY PRN PRN Reason: PAIN Last Admin: 12/10/19 08:15 Dose: 1 applic Documented by: Loratadine (Claritin -) 10 mg PO HS [facility] Last Admin: 12/09/19 21:24 Dose: 10 mg Documented by: Melatonin (Melatonin) 5 mg PO HS PRN PRN Reason: INSOMNIA Last Admin: 12/05/19 21:52 Dose: 5 mg Documented by: Multivit/Ca Carb/B Cmplx/FA/Prenat (Nephro-Ivon -) 1 tablet PO DAILY [facility] Last Admin: 12/09/19 09:42 Dose: 1 tablet Documented by: Pantoprazole Sodium (Protonix -) 40 mg PO DAILY [facility] Last Admin: 12/09/19 09:41 Dose: 40 mg Documented by: Ropinirole HCl (Requip -) 0.5 mg PO HS [facility] Last Admin: 12/09/19 22:17 Dose: 0.5 mg Documented by: - Objective Vital Signs: Vital Signs Temperature 98.8 F 12/10/19 09:10 Pulse Rate 72 12/10/19 09:45 Respiratory Rate 18 12/10/19 09:45 Blood Pressure 106/50 L 12/10/19 09:45 O2 Sat by Pulse Oximetry (%) 97 12/09/19 22:00 Constitutional: Yes: No Distress, Calm Respiratory: Yes: Regular, CTA Bilaterally Gastrointestinal: Yes: Normal Bowel Sounds, Soft Musculoskeletal: Yes: WNL Extremities: Yes: Other Neurological: Yes: Alert, Oriented Psychiatric: Yes: Alert, Oriented Labs: CBC, BMP 12/09/19 10:50 12/09/19 10:50 INR, PTT INR 1.32 (0.83-1.09) H 12/04/19 13:55 Assessment/Plan 59 yo F with PMH of ESRD (M/W/F), DM, HTN, CAD( S/P CABG), HFrEF( S/P ICD), PVD (S/P right metatarsal amputation) presents to ED for worsening L foot infection. cellulitis gangrene of the foot dm htn hferp esrd plan abx wound care rest as per the team
[2019-12-10] MEDS: HEPARIN NA (PORCINE) 5,000 UNITS/ML 1ML VIAL IVPUSH SCH ×3 (10:14→12:03)
--- NOTE | 2019-12-10 12:45 | PN ---
Progress Note (short form) - Note Progress Note: cc: foot gangrene s: no chest pain, palps, dizziness, dyspnea Current Medications Generic Name Dose Route Start Last Admin Trade Name [place] PRN Reason Stop Dose Admin Acetaminophen 650 mg 12/04/19 17:57 Tylenol - PO Q6H PRN Fever Or Pain Ascorbic Acid 500 mg 12/08/19 10:00 12/09/19 09:41 Vitamin C - PO 500 mg DAILY DEANNA Administration Aspirin 81 mg 12/05/19 10:00 12/09/19 09:41 Asa - PO 81 mg DAILY DEANNA Administration Atorvastatin Calcium 80 mg 12/04/19 22:00 12/09/19 21:25 Lipitor - PO Not Given HS DEANNA Carvedilol 3.125 mg 12/04/19 22:00 12/09/19 21:24 Coreg - PO 3.125 mg HS DEANNA Administration Fluticasone Propionate 2 spray 12/05/19 10:00 Flonase - NS DAILY PRN ALLERGIES Gabapentin 100 mg 12/05/19 10:00 12/09/19 09:41 Neurontin - PO 100 mg DAILY DEANNA Administration Heparin Sodium (Porcine) 5,000 unit 12/04/19 22:00 12/10/19 05:57 Heparin - SQ 5,000 unit TID DEANNA Administration Aztreonam 0.5 gm/ Dextrose 50 mls @ 100 mls/hr 12/05/19 06:00 12/10/19 05:09 IVPB 100 mls/hr TID DEANNA Administration Protocol Sodium Chloride 250 mls @ 3,000 mls/hr 12/10/19 08:04 Normal Saline - IV 12/11/19 08:04 PRN PRN Hypotension during Dialysis Insulin Aspart 1 vial 12/05/19 07:00 12/10/19 06:05 Novolog Vial Sliding Scale - SQ 2 units TIDAC [facility] Administration Protocol Insulin Detemir 4 units 12/05/19 07:00 12/10/19 06:04 Levemir Vial SQ 4 units AM DEANNA Administration Lidocaine/Prilocaine 1 applic 12/06/19 14:09 12/10/19 08:15 Emla - TP 1 applic DAILY PRN Administration PAIN Linezolid 600 mg 12/10/19 11:15 Zyvox (Restricted To Id) - PO BID DEANNA Loratadine 10 mg 12/04/19 22:00 12/09/19 21:24 Claritin - PO 10 mg HS DEANNA Administration Melatonin 5 mg 12/04/19 18:15 12/05/19 21:52 Melatonin PO 5 mg HS PRN Administration INSOMNIA Multivit/Ca Carb/B Cmplx/FA/Prenat 1 tablet 12/08/19 10:00 12/09/19 09:42 Nephro-Ivon - PO 1 tablet DAILY DEANNA Administration Pantoprazole Sodium 40 mg 12/05/19 10:00 12/09/19 09:41 Protonix - PO 40 mg DAILY DEANNA Administration Ropinirole HCl 0.5 mg 12/04/19 22:45 12/09/19 22:17 Requip - PO 0.5 mg HS DEANNA Administration Vital Signs Period Temp Pulse Resp BP Sys/Horowitz Pulse Ox Last 24 Hr 97.8 F-98.8 F 67-85 18-20 97-139/37-95 97-97 Constitutional: Yes: No Distress, Calm Eyes: Yes: Conjunctiva Clear Cardiovascular: Yes: Regular Rate and Rhythm Respiratory: Yes: CTA Bilaterally Gastrointestinal: Yes: Soft (nt) Edema: No Neurological: Yes: Alert, Oriented no jaundice, diaphoresis not agitated Assessment/Plan EKG: sinus, nl intervals, lvh with repol, similar to prior echo 03/2019 tds, mod to sev MR, mild to mod ao sclerosis, severe TR, severely reduced LV function, RVSP >60 mmHg, LV/RV not well visualized, mild to mod AR mibi 03/2019 mod size inferolateral infarct with mild марина-infarct ischemia, global hypokinesis, EF 13% cxr: no chf a/p: 59F h/o CAD s/p CABG, chronic systolic HF s/p ICD, DM, ESRD on HD chronic L foot wound p/w worsening foot wound. chronic systolic HF, s/p ICD: - appears euvolemic - volume management per renal with HD - continue carvedilol, additional chf meds limited by low BP in the past CAD s/p CABG: - stable, no angina, no signs acs - cont statin, asa, bb - recent mibi w/o significant ischemia DM: - manage per primary pad, non healing wound, gangrene: - bka planned -no absolute cardiac contraindications to bka; periop management of plavix as per Vascular surgery
[2019-12-10] MEDS: LINEZOLID 600 MG TABLET (RESTRICTED TO ID) PO SCH ×2 (13:22→21:51)
[2019-12-10] MEDS: ASCORBIC ACID 500 MG TABLET (FP) PO SCH (13:22)
[2019-12-10] MEDS: PANTOPRAZOLE 40 MG TABLET PO SCH (13:22)
[2019-12-10] MEDS: ASPIRIN 81 MG CHEWABLE TABLETS PO SCH (13:23)
[2019-12-10] MEDS: GABAPENTIN 100 MG CAPSULE PO SCH (13:23)
[2019-12-10] MEDS: VITAMIN B COMP W-C 1 EA TABLET (NEPHRO-VITE) PO SCH (13:23)
--- NOTE | 2019-12-10 14:34 | PN ---
Progress Note, Physician History of Present Illness: Pt seen and examined at bedside. She is awake and alert. SHe complains of lower ext edema. - Current Medication List Current Medications: Active Medications Acetaminophen (Tylenol -) 650 mg PO Q6H PRN PRN Reason: Fever Or Pain Ascorbic Acid (Vitamin C -) 500 mg PO DAILY [facility] Last Admin: 12/10/19 13:22 Dose: 500 mg Documented by: Aspirin (Asa -) 81 mg PO DAILY [facility] Last Admin: 12/10/19 13:23 Dose: 81 mg Documented by: Atorvastatin Calcium (Lipitor -) 80 mg PO HS [facility] Last Admin: 12/09/19 21:25 Dose: Not Given Documented by: Carvedilol (Coreg -) 3.125 mg PO HS [facility] Last Admin: 12/09/19 21:24 Dose: 3.125 mg Documented by: Fluticasone Propionate (Flonase -) 2 spray NS DAILY PRN PRN Reason: ALLERGIES Gabapentin (Neurontin -) 100 mg PO DAILY [facility] Last Admin: 12/10/19 13:23 Dose: 100 mg Documented by: Heparin Sodium (Porcine) (Heparin -) 5,000 unit SQ TID [facility] Last Admin: 12/10/19 13:21 Dose: 5,000 unit Documented by: Aztreonam 0.5 gm/ Dextrose 50 mls @ 100 mls/hr IVPB TID [facility]; Protocol Last Admin: 12/10/19 05:09 Dose: 100 mls/hr Documented by: Sodium Chloride (Normal Saline -) 250 mls @ 3,000 mls/hr IV PRN PRN PRN Reason: Hypotension during Dialysis Stop: 12/11/19 08:04 Insulin Aspart (Novolog Vial Sliding Scale -) 1 vial SQ TIDAC [facility]; Protocol Last Admin: 12/10/19 13:20 Dose: 2 units Documented by: Insulin Detemir (Levemir Vial) 4 units SQ AM [facility] Last Admin: 12/10/19 06:04 Dose: 4 units Documented by: Lidocaine/Prilocaine (Emla -) 1 applic TP DAILY PRN PRN Reason: PAIN Last Admin: 12/10/19 08:15 Dose: 1 applic Documented by: Linezolid (Zyvox (Restricted To Id) -) 600 mg PO BID [facility] Last Admin: 12/10/19 13:22 Dose: 600 mg Documented by: Loratadine (Claritin -) 10 mg PO HS [facility] Last Admin: 12/09/19 21:24 Dose: 10 mg Documented by: Melatonin (Melatonin) 5 mg PO HS PRN PRN Reason: INSOMNIA Last Admin: 12/05/19 21:52 Dose: 5 mg Documented by: Multivit/Ca Carb/B Cmplx/FA/Prenat (Nephro-Ivon -) 1 tablet PO DAILY [facility] Last Admin: 12/10/19 13:23 Dose: 1 tablet Documented by: Pantoprazole Sodium (Protonix -) 40 mg PO DAILY [facility] Last Admin: 12/10/19 13:22 Dose: 40 mg Documented by: Ropinirole HCl (Requip -) 0.5 mg PO [facility] Last Admin: 12/09/19 22:17 Dose: 0.5 mg Documented by: - Objective Vital Signs: Vital Signs Temperature 98.8 F 12/10/19 09:10 Pulse Rate 78 12/10/19 12:20 Respiratory Rate 18 12/10/19 12:20 Blood Pressure 111/52 L 12/10/19 12:20 O2 Sat by Pulse Oximetry (%) 97 12/09/19 22:00 Constitutional: Yes: Calm Eyes: Yes: Conjunctiva Clear HENT: Yes: Atraumatic Neck: Yes: Supple Cardiovascular: Yes: S1, S2 Respiratory: Yes: CTA Bilaterally Gastrointestinal: Yes: Soft Genitourinary: Yes: WNL Edema: Yes Edema: LLE: 1+, RLE: 1+ Wound/Incision: Yes: Dressing Dry and Intact Neurological: Yes: Oriented Psychiatric: Yes: Oriented Labs: CBC, BMP 12/09/19 10:50 12/09/19 10:50 INR, PTT INR 1.32 (0.83-1.09) H 12/04/19 13:55 Problem List - Problems (1) ESRD (end stage renal disease) Code(s): N18.6 - END STAGE RENAL DISEASE (2) Cellulitis Code(s): L03.90 - CELLULITIS, UNSPECIFIED Qualifiers: Site of cellulitis: extremity Site of cellulitis of extremity: lower extremity Laterality: unspecified laterality Qualified Code(s): L03.119 - Cellulitis of unspecified part of limb Assessment/Plan Current Medications Generic Name Dose Route Start Last Admin Trade Name Freq PRN Reason Stop Dose Admin Acetaminophen 650 mg 12/04/19 17:57 Tylenol - PO Q6H PRN Fever Or Pain Ascorbic Acid 500 mg 12/08/19 10:00 12/10/19 13:22 Vitamin C - PO 500 mg DAILY DEANNA Administration Aspirin 81 mg 12/05/19 10:00 12/10/19 13:23 Asa - PO 81 mg DAILY DEANNA Administration Atorvastatin Calcium 80 mg 12/04/19 22:00 12/09/19 21:25 Lipitor - PO Not Given HS DEANNA Carvedilol 3.125 mg 12/04/19 22:00 12/09/19 21:24 Coreg - PO 3.125 mg HS DEANNA Administration Fluticasone Propionate 2 spray 12/05/19 10:00 Flonase - NS DAILY PRN ALLERGIES Gabapentin 100 mg 12/05/19 10:00 12/10/19 13:23 Neurontin - PO 100 mg DAILY DEANNA Administration Heparin Sodium (Porcine) 5,000 unit 12/04/19 22:00 12/10/19 13:21 Heparin - SQ 5,000 unit TID DEANNA Administration Aztreonam 0.5 gm/ Dextrose 50 mls @ 100 mls/hr 12/05/19 06:00 12/10/19 05:09 IVPB 100 mls/hr TID [facility] Administration Protocol Sodium Chloride 250 mls @ 3,000 mls/hr 12/10/19 08:04 Normal Saline - IV 12/11/19 08:04 PRN PRN Hypotension during Dialysis Insulin Aspart 1 vial 12/05/19 07:00 12/10/19 13:20 Novolog Vial Sliding Scale - SQ 2 units TIDAC [facility] Administration Protocol Insulin Detemir 4 units 12/05/19 07:00 12/10/19 06:04 Levemir Vial SQ 4 units AM DEANNA Administration Lidocaine/Prilocaine 1 applic 12/06/19 14:09 12/10/19 08:15 Emla - TP 1 applic DAILY PRN Administration PAIN Linezolid 600 mg 12/10/19 11:15 12/10/19 13:22 Zyvox (Restricted To Id) - PO 600 mg BID DEANNA Administration Loratadine 10 mg 12/04/19 22:00 12/09/19 21:24 Claritin - PO 10 mg HS DEANNA Administration Melatonin 5 mg 12/04/19 18:15 12/05/19 21:52 Melatonin PO 5 mg HS PRN Administration INSOMNIA Multivit/Ca Carb/B Cmplx/FA/Prenat 1 tablet 12/08/19 10:00 12/10/19 13:23 Nephro-Ivon - PO 1 tablet DAILY DEANNA Administration Pantoprazole Sodium 40 mg 12/05/19 10:00 12/10/19 13:22 Protonix - PO 40 mg DAILY DEANNA Administration Ropinirole HCl 0.5 mg 12/04/19 22:45 12/09/19 22:17 Requip - PO 0.5 mg HS DEANNA Administration Impression 1. ESRD 2. CHF 3. DM 4. HTN 5. hyperlipidemia 6. nephrotic range proteinuria 7. CAD 8. lower ext infection Plan - will arrange for extra HD today for UF - next HD on Thursday - renal diet - cont epogen - plavix on hold for amputation - vascular follow up
--- NOTE | 2019-12-10 17:00 | PN ---
Physical Exam: SUBJECTIVE: Patient seen and examined, had additional HD session today OBJECTIVE: Vital Signs Period Temp Pulse Resp BP Sys/Horowitz Pulse Ox Last 24 Hr 97.8 F-98.8 F 67-80 17-20 97-139/37-73 97-97 GENERAL: Awake, alert, and fully oriented, in no acute distress. ENT: ears examined no wax, normal TM LUNGS: fine rales bilaterally. No accessory muscle use. HEART: Regular rate and rhythm, normal S1 and S2 with 3/6 systolic murmur @ LSB, rub or gallop. ABDOMEN: Soft, nontender, not distended, normoactive bowel sounds, no guarding, no rebound, no masses. No hepatomegaly or splenomegaly. UPPER EXTREMITIES: rt AV graft LOWER EXTREMITIES: No peripheral edema, unable to feel dorsalis pedis bilateral ly, posterior tibial +1 Rt, unable to feel on left, both legs warm, amputated rt 2nd toe SKIN: bilaterally dry gangrene on both feet, Laboratory Results - last 24 hr 12/09/19 12/10/19 12/10/19 17:35 06:00 13:15 POC Glucometer 217 180 170 Active Medications Generic Name Dose Route Start Last Admin Trade Name Freq PRN Reason Stop Dose Admin Acetaminophen 650 mg 12/04/19 17:57 Tylenol - PO Q6H PRN Fever Or Pain Ascorbic Acid 500 mg 12/08/19 10:00 12/10/19 13:22 Vitamin C - PO 500 mg DAILY DEANNA Administration Aspirin 81 mg 12/05/19 10:00 12/10/19 13:23 Asa - PO 81 mg DAILY DEANNA Administration Atorvastatin Calcium 80 mg 12/04/19 22:00 12/09/19 21:25 Lipitor - PO Not Given HS DEANNA Carvedilol 3.125 mg 12/04/19 22:00 12/09/19 21:24 Coreg - PO 3.125 mg HS DEANNA Administration Fluticasone Propionate 2 spray 12/05/19 10:00 Flonase - NS DAILY PRN ALLERGIES Gabapentin 100 mg 12/05/19 10:00 12/10/19 13:23 Neurontin - PO 100 mg DAILY DEANNA Administration Heparin Sodium (Porcine) 5,000 unit 12/04/19 22:00 12/10/19 13:21 Heparin - SQ 5,000 unit TID DEANNA Administration Aztreonam 0.5 gm/ Dextrose 50 mls @ 100 mls/hr 12/05/19 06:00 12/10/19 14:37 IVPB 100 mls/hr TID DEANNA Administration Protocol Sodium Chloride 250 mls @ 3,000 mls/hr 12/10/19 08:04 Normal Saline - IV 12/11/19 08:04 PRN PRN Hypotension during Dialysis Insulin Aspart 1 vial 12/05/19 07:00 12/10/19 13:20 Novolog Vial Sliding Scale - SQ 2 units TIDAC DEANNA Administration Protocol Insulin Detemir 4 units 12/05/19 07:00 12/10/19 06:04 Levemir Vial SQ 4 units AM DEANNA Administration Lidocaine/Prilocaine 1 applic 12/06/19 14:09 12/10/19 08:15 Emla - TP 1 applic DAILY PRN Administration PAIN Linezolid 600 mg 12/10/19 11:15 12/10/19 13:22 Zyvox (Restricted To Id) - PO 600 mg BID DEANNA Administration Loratadine 10 mg 12/04/19 22:00 12/09/19 21:24 Claritin - PO 10 mg HS DEANNA Administration Melatonin 5 mg 12/04/19 18:15 12/05/19 21:52 Melatonin PO 5 mg HS PRN Administration INSOMNIA Multivit/Ca Carb/B Cmplx/FA/Prenat 1 tablet 12/08/19 10:00 12/10/19 13:23 Nephro-Ivon - PO 1 tablet DAILY DEANNA Administration Pantoprazole Sodium 40 mg 12/05/19 10:00 12/10/19 13:22 Protonix - PO 40 mg DAILY DEANNA Administration Ropinirole HCl 0.5 mg 12/04/19 22:45 12/09/19 22:17 Requip - PO 0.5 mg HS DEANNA Administration ASSESSMENT/PLAN: # sepsis due to Diabetic foot ulcer, cellulitis and gangrene - no fever, non tachy, WBC trended down - pain management as indicated - c/w IV abx, ID consult appreciated - wound culture grew multiple organisms, including VRE - Vascular surgeon to plan BKA with spinal anesthesia, off plavix, c/w ASA - pt in agreement with BKA - need for surgery, risks and benefits discussed with patient who voiced verbal understanding, RCRI score 5, high risk - 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 Visit type - Emergency Visit Emergency Visit: Yes ED Registration Date: 12/04/19 Care time: The patient presented to the Emergency Department on the above date and was hospitalized for further evaluation of their emergent condition. - New Patient This patient is new to me today: No - Critical Care Critical Care patient: No - Discharge Referral Referred to [facility] No
[2019-12-10] MEDS: ATORVASTATIN CA 80 MG TABLET (FP) PO SCH ×2 (21:51→22:00)
[2019-12-10] MEDS: CARVEDILOL 3.125 MG TABLET (FP) PO SCH (21:51)
[2019-12-10] MEDS: rOPINIRole HCL 0.25 MG TABLET PO SCH (21:51)
[2019-12-10] MEDS: LORATADINE 10 MG TABLET PO SCH (21:52)
[2019-12-11] MEDS: ACETAMINOPHEN 325 MG TABLET (FP) PO PRN (03:32)
[2019-12-11] MEDS ORDERED: ACETAMINOPHEN 1000 MG/100 ML VIAL (NON FORMULARY) IVPB ONE ×2 (06:04→16:15)
[2019-12-11] MEDS: HEPARIN NA (PORCINE) 5,000 UNITS/ML 1ML VIAL SQ SCH ×2 (06:12→14:41)
[2019-12-11] MEDS: INSULIN (LEVEMIR) 100 UNITS/ML UNITS SQ SCH (06:14)
[2019-12-11] MEDS: INSULIN SLIDING SCALE (NOVOLOG) 1 VIAL SQ SCH ×3 (06:15→16:24)
[2019-12-11] MEDS: AZTREONAM 0.5 GM in DEXTROSE 5%-WATER - 50 ML IVPB SCH ×3 (06:16→21:18)
[2019-12-11 07:33] LABS: INR 1.54 (0.83-1.09); PROTHROMBIN TIME (PATIENT) 18.2 SEC (9.7-13.0)
[2019-12-11 07:55] LABS: ALBUMIN 2.3 g/dl (3.4-5.0); BILIRUBIN,TOTAL 0.8 mg/dL (0.2-1); BLOOD UREA NITROGEN 20.6 mg/dL (7-18); CALCIUM 8.4 mg/dL (8.5-10.1); CREATININE 4.5 mg/dL (0.55-1.3); POTASSIUM 4.5 mmol/L (3.5-5.1); TOT PROT 5.4 g/dl (6.4-8.2)
[2019-12-11 07:56] LABS: BASO % 0.8 % (0-2.0); EOS % 3.5 % (0-4.5); HEMATOCRIT 32.5 % (32.4-45.2); LYMPH % 13.4 % (8-40); MCH 32.4 pg (25.7-33.7); MCHC 30.7 g/dl (32.0-36.0); MEAN CELL VOLUME 105.6 fl (80-96); MEAN PLT VOLUME 9.3 fl (7.5-11.1); MONO % 9.2 % (3.8-10.2); NEUT % 73.1 % (42.8-82.8); PLATELET COUNT 156 K/MM3 (134-434); RBC 3.08 M/mm3 (3.60-5.2); WHITE BLOOD COUNT 8.6 K/mm3 (4.0-10.0)
[2019-12-11] MEDS: ASPIRIN 81 MG CHEWABLE TABLETS PO SCH (09:27)
[2019-12-11] MEDS: ASCORBIC ACID 500 MG TABLET (FP) PO SCH (09:27)
[2019-12-11] MEDS: GABAPENTIN 100 MG CAPSULE PO SCH (09:27)
[2019-12-11] MEDS: VITAMIN B COMP W-C 1 EA TABLET (NEPHRO-VITE) PO SCH (09:27)
[2019-12-11] MEDS: LINEZOLID 600 MG TABLET (RESTRICTED TO ID) PO SCH ×2 (09:28→21:18)
[2019-12-11] MEDS: PANTOPRAZOLE 40 MG TABLET PO SCH (09:28)
--- NOTE | 2019-12-11 11:49 | PN ---
Progress Note (short form) - Note Progress Note: cc: foot gangrene s: no chest pain, palps, dizziness, dyspnea. complains of leg and abd swelling Current Medications Generic Name Dose Route Start Last Admin Trade Name Freq PRN Reason Stop Dose Admin Acetaminophen 650 mg 12/04/19 17:57 12/11/19 03:32 Tylenol - PO 650 mg Q6H PRN Administration Fever Or Pain Ascorbic Acid 500 mg 12/08/19 10:00 12/11/19 09:27 Vitamin C - PO 500 mg DAILY DEANNA Administration Aspirin 81 mg 12/05/19 10:00 12/11/19 09:27 Asa - PO 81 mg DAILY DEANNA Administration Atorvastatin Calcium 80 mg 12/04/19 22:00 12/10/19 22:00 Lipitor - PO Not Given HS DEANNA Carvedilol 3.125 mg 12/04/19 22:00 12/10/19 21:51 Coreg - PO Not Given HS DEANNA Fluticasone Propionate 2 spray 12/05/19 10:00 Flonase - NS DAILY PRN ALLERGIES Gabapentin 100 mg 12/05/19 10:00 12/11/19 09:27 Neurontin - PO 100 mg DAILY DEANNA Administration Heparin Sodium (Porcine) 5,000 unit 12/04/19 22:00 12/11/19 06:12 Heparin - SQ 5,000 unit TID DEANNA Administration Aztreonam 0.5 gm/ Dextrose 50 mls @ 100 mls/hr 12/05/19 06:00 12/11/19 06:16 IVPB 100 mls/hr TID DEANNA Administration Protocol Insulin Aspart 1 vial 12/05/19 07:00 12/11/19 06:15 Novolog Vial Sliding Scale - SQ 4 units TIDAC [facility] Administration Protocol Insulin Detemir 4 units 12/05/19 07:00 12/11/19 06:14 Levemir Vial SQ 4 units AM DEANNA Administration Lidocaine/Prilocaine 1 applic 12/06/19 14:09 12/10/19 08:15 Emla - TP 1 applic DAILY PRN Administration PAIN Linezolid 600 mg 12/10/19 11:15 12/11/19 09:28 Zyvox (Restricted To Id) - PO 600 mg BID DEANNA Administration Loratadine 10 mg 12/04/19 22:00 12/10/19 21:52 Claritin - PO 10 mg HS DEANNA Administration Melatonin 5 mg 12/04/19 18:15 12/05/19 21:52 Melatonin PO 5 mg HS PRN Administration INSOMNIA Multivit/Ca Carb/B Cmplx/FA/Prenat 1 tablet 12/08/19 10:00 12/11/19 09:27 Nephro-Ivon - PO 1 tablet DAILY DEANNA Administration Pantoprazole Sodium 40 mg 12/05/19 10:00 12/11/19 09:28 Protonix - PO 40 mg DAILY DEANNA Administration Ropinirole HCl 0.5 mg 12/04/19 22:45 12/10/19 21:51 Requip - PO 0.5 mg HS DEANNA Administration Vital Signs Period Temp Pulse Resp BP Sys/Horowitz Pulse Ox Last 24 Hr 97.9 F-98.3 F 72-97 16-18 97-135/37-89 97-100 Constitutional: Yes: No Distress, Calm Eyes: Yes: Conjunctiva Clear Cardiovascular: Yes: Regular Rate and Rhythm Respiratory: Yes: CTA Bilaterally Gastrointestinal: Yes: Soft (nt) Edema: No Neurological: Yes: Alert, Oriented no jaundice, diaphoresis not agitated Assessment/Plan EKG: sinus, nl intervals, lvh with repol, similar to prior echo 03/2019 tds, mod to sev MR, mild to mod ao sclerosis, severe TR, severely reduced LV function, RVSP >60 mmHg, LV/RV not well visualized, mild to mod AR mibi 03/2019 mod size inferolateral infarct with mild марина-infarct ischemia, global hypokinesis, EF 13% cxr: no chf a/p: 59F h/o CAD s/p CABG, chronic systolic HF s/p ICD, DM, ESRD on HD chronic L foot wound p/w worsening foot wound. chronic systolic HF, s/p ICD: - 12 lbs up from dry weight, complains of swelling - volume management per renal with HD - continue carvedilol, additional chf meds limited by low BP in the past CAD s/p CABG: - stable, no angina, no signs acs - cont statin, asa, bb - recent mibi w/o significant ischemia DM: - manage per primary pad, non healing wound, gangrene: - bka planned -no absolute cardiac contraindications to bka; periop management of plavix as per Vascular surgery
--- NOTE | 2019-12-11 13:05 | PN ---
Physical Exam: SUBJECTIVE: Patient seen and examined OBJECTIVE: Vital Signs Period Temp Pulse Resp BP Sys/Horowitz Pulse Ox Last 24 Hr 97.9 F-98.3 F 80-97 16-18 97-135/46-89 97-100 GENERAL: Awake, alert, and fully oriented, in no acute distress. ENT: ears examined no wax, normal TM LUNGS: fine rales bilaterally. No accessory muscle use. HEART: Regular rate and rhythm, normal S1 and S2 with 3/6 systolic murmur @ LSB, rub or gallop. ABDOMEN: Soft, nontender, not distended, normoactive bowel sounds, no guarding, no rebound, no masses. No hepatomegaly or splenomegaly. UPPER EXTREMITIES: rt AV graft LOWER EXTREMITIES: No peripheral edema, unable to feel dorsalis pedis bilaterally, posterior tibial +1 Rt, unable to feel on left, both legs warm, amputated rt 2nd toe SKIN: bilaterally dry gangrene on both feet, Laboratory Results - last 24 hr 12/10/19 12/10/19 12/10/19 13:15 17:09 21:50 WBC RBC Hgb Hct MCV MCH MCHC RDW Plt Count MPV Absolute Neuts (auto) Neutrophils % Lymphocytes % Monocytes % Eosinophils % Basophils % Nucleated RBC % PT with INR INR Sodium Potassium Chloride Carbon Dioxide Anion Gap BUN Creatinine Est GFR (CKD-EPI)AfAm Est GFR (CKD-EPI)NonAf POC Glucometer 170 172 305 Random Glucose Calcium Total Bilirubin AST ALT Alkaline Phosphatase Total Protein Albumin 12/11/19 12/11/19 12/11/19 06:13 06:40 06:40 WBC 8.6 RBC 3.08 L Hgb 10.0 L Hct 32.5 MCV 105.6 H MCH 32.4 MCHC 30.7 L RDW 22.0 H Plt Count 156 MPV 9.3 Absolute Neuts (auto) 6.3 Neutrophils % 73.1 Lymphocytes % 13.4 D Monocytes % 9.2 Eosinophils % 3.5 Basophils % 0.8 Nucleated RBC % 0 PT with INR INR Sodium 140 Potassium 4.5 Chloride 103 Carbon Dioxide 28 Anion Gap 10 BUN 20.6 H Creatinine 4.5 H Est GFR (CKD-EPI)AfAm 11.59 Est GFR (CKD-EPI)NonAf 10.00 POC Glucometer 227 Random Glucose 239 H Calcium 8.4 L Total Bilirubin 0.8 AST 21 ALT 11 L Alkaline Phosphatase 252 H Total Protein 5.4 L Albumin 2.3 L 12/11/19 12/11/19 06:40 11:41 WBC RBC Hgb Hct MCV MCH MCHC RDW Plt Count MPV Absolute Neuts (auto) Neutrophils % Lymphocytes % Monocytes % Eosinophils % Basophils % Nucleated RBC % PT with INR 18.20 H INR 1.54 H Sodium Potassium Chloride Carbon Dioxide Anion Gap BUN Creatinine Est GFR (CKD-EPI)AfAm Est GFR (CKD-EPI)NonAf POC Glucometer 237 Random Glucose Calcium Total Bilirubin AST ALT Alkaline Phosphatase Total Protein Albumin Active Medications Generic Name Dose Route Start Last Admin Trade Name Freq PRN Reason Stop Dose Admin Acetaminophen 650 mg 12/04/19 17:57 12/11/19 03:32 Tylenol - PO 650 mg Q6H PRN Administration Fever Or Pain Ascorbic Acid 500 mg 12/08/19 10:00 12/11/19 09:27 Vitamin C - PO 500 mg DAILY DEANNA Administration Aspirin 81 mg 12/05/19 10:00 12/11/19 09:27 Asa - PO 81 mg DAILY DEANNA Administration Atorvastatin Calcium 80 mg 12/04/19 22:00 12/10/19 22:00 Lipitor - PO Not Given HS DEANNA Carvedilol 3.125 mg 12/04/19 22:00 12/10/19 21:51 Coreg - PO Not Given HS DEANNA Fluticasone Propionate 2 spray 12/05/19 10:00 Flonase - NS DAILY PRN ALLERGIES Gabapentin 100 mg 12/05/19 10:00 12/11/19 09:27 Neurontin - PO 100 mg DAILY DEANNA Administration Heparin Sodium (Porcine) 5,000 unit 12/04/19 22:00 12/11/19 06:12 Heparin - SQ 5,000 unit TID DEANNA Administration Aztreonam 0.5 gm/ Dextrose 50 mls @ 100 mls/hr 12/05/19 06:00 12/11/19 06:16 IVPB 100 mls/hr TID DEANNA Administration Protocol Insulin Aspart 1 vial 12/05/19 07:00 12/11/19 11:54 Novolog Vial Sliding Scale - SQ 6 units TIDAC DEANNA Administration Protocol Insulin Detemir 4 units 12/05/19 07:00 12/11/19 06:14 Levemir Vial SQ 4 units AM DEANNA Administration Lidocaine/Prilocaine 1 applic 12/06/19 14:09 12/10/19 08:15 Emla - TP 1 applic DAILY PRN Administration PAIN Linezolid 600 mg 12/10/19 11:15 12/11/19 09:28 Zyvox (Restricted To Id) - PO 600 mg BID DEANNA Administration Loratadine 10 mg 12/04/19 22:00 12/10/19 21:52 Claritin - PO 10 mg HS DEANNA Administration Melatonin 5 mg 12/04/19 18:15 12/05/19 21:52 Melatonin PO 5 mg HS PRN Administration INSOMNIA Multivit/Ca Carb/B Cmplx/FA/Prenat 1 tablet 12/08/19 10:00 12/11/19 09:27 Nephro-Ivon - PO 1 tablet DAILY DEANNA Administration Pantoprazole Sodium 40 mg 12/05/19 10:00 12/11/19 09:28 Protonix - PO 40 mg DAILY DEANNA Administration Ropinirole HCl 0.5 mg 12/04/19 22:45 12/10/19 21:51 Requip - PO 0.5 mg HS DEANNA Administration ASSESSMENT/PLAN: # sepsis due to Diabetic foot ulcer, cellulitis and gangrene - wound culture grew multiple organisms, including VRE - c/w IV abx, ID consult appreciated - pt in agreement with BKA - plan is to transfer pt for higher level care facility for BKA due to general medical condition - vascular consult appreciated - cardiology consult appreciated #ESRD on HD # DM with Diabetic neuropathy # HFrEF, CAD, EF 13% on ICD # DVT prophylaxis, fall precautions. Visit type - Emergency Visit Emergency Visit: Yes ED Registration Date: 12/04/19 Care time: The patient presented to the Emergency Department on the above date and was hospitalized for further evaluation of their emergent condition. - New Patient This patient is new to me today: No - Critical Care Critical Care patient: No - Discharge Referral Referred to [facility] Med [facility] No
--- NOTE | 2019-12-11 15:26 | PN ---
Progress Note, Physician History of Present Illness: Pt seen and examined at bedside. She is awake and alert. - Current Medication List Current Medications: Active Medications Acetaminophen (Tylenol -) 650 mg PO Q6H PRN PRN Reason: Fever Or Pain Last Admin: 12/11/19 03:32 Dose: 650 mg Documented by: Ascorbic Acid (Vitamin C -) 500 mg PO DAILY [facility] Last Admin: 12/11/19 09:27 Dose: 500 mg Documented by: Aspirin (Asa -) 81 mg PO DAILY [facility] Last Admin: 12/11/19 09:27 Dose: 81 mg Documented by: Atorvastatin Calcium (Lipitor -) 80 mg PO HS [facility] Last Admin: 12/10/19 22:00 Dose: Not Given Documented by: Carvedilol (Coreg -) 3.125 mg PO HS [facility] Last Admin: 12/10/19 21:51 Dose: Not Given Documented by: Fluticasone Propionate (Flonase -) 2 spray NS DAILY PRN PRN Reason: ALLERGIES Gabapentin (Neurontin -) 100 mg PO DAILY [facility] Last Admin: 12/11/19 09:27 Dose: 100 mg Documented by: Heparin Sodium (Porcine) (Heparin -) 5,000 unit SQ TID [facility] Last Admin: 12/11/19 14:41 Dose: 5,000 unit Documented by: Aztreonam 0.5 gm/ Dextrose 50 mls @ 100 mls/hr IVPB TID [facility]; Protocol Last Admin: 12/11/19 14:41 Dose: 100 mls/hr Documented by: Insulin Aspart (Novolog Vial Sliding Scale -) 1 vial SQ TIDAC [facility]; Protocol Last Admin: 12/11/19 11:54 Dose: 6 units Documented by: Insulin Detemir (Levemir Vial) 4 units SQ AM [facility] Last Admin: 12/11/19 06:14 Dose: 4 units Documented by: Lidocaine/Prilocaine (Emla -) 1 applic TP DAILY PRN PRN Reason: PAIN Last Admin: 12/10/19 08:15 Dose: 1 applic Documented by: Linezolid (Zyvox (Restricted To Id) -) 600 mg PO BID [facility] Last Admin: 12/11/19 09:28 Dose: 600 mg Documented by: Loratadine (Claritin -) 10 mg PO HS [facility] Last Admin: 12/10/19 21:52 Dose: 10 mg Documented by: Melatonin (Melatonin) 5 mg PO HS PRN PRN Reason: INSOMNIA Last Admin: 12/05/19 21:52 Dose: 5 mg Documented by: Multivit/Ca Carb/B Cmplx/FA/Prenat (Nephro-Ivon -) 1 tablet PO DAILY [facility] Last Admin: 12/11/19 09:27 Dose: 1 tablet Documented by: Pantoprazole Sodium (Protonix -) 40 mg PO DAILY [facility] Last Admin: 12/11/19 09:28 Dose: 40 mg Documented by: Ropinirole HCl (Requip -) 0.5 mg PO [facility] Last Admin: 12/10/19 21:51 Dose: 0.5 mg Documented by: - Objective Vital Signs: Vital Signs Temperature 97.9 F 12/11/19 09:48 Pulse Rate 97 H 12/11/19 09:48 Respiratory Rate 16 12/11/19 09:48 Blood Pressure 126/80 12/11/19 09:48 O2 Sat by Pulse Oximetry (%) 99 12/11/19 09:48 Constitutional: Yes: Calm Eyes: Yes: Conjunctiva Clear HENT: Yes: Atraumatic Neck: Yes: Supple Cardiovascular: Yes: S1, S2 Respiratory: Yes: CTA Bilaterally Gastrointestinal: Yes: Soft Genitourinary: Yes: WNL Edema: Yes Edema: LLE: 1+, RLE: 1+ Wound/Incision: Yes: Dressing Dry and Intact Neurological: Yes: Oriented Psychiatric: Yes: Oriented Labs: CBC, BMP 12/11/19 06:40 12/11/19 06:40 INR, PTT INR 1.54 (0.83-1.09) H 12/11/19 06:40 Problem List - Problems (1) ESRD (end stage renal disease) Code(s): N18.6 - END STAGE RENAL DISEASE (2) Cellulitis Code(s): L03.90 - CELLULITIS, UNSPECIFIED Qualifiers: Site of cellulitis: extremity Site of cellulitis of extremity: lower extremity Laterality: unspecified laterality Qualified Code(s): L03.119 - Cellulitis of unspecified part of limb Assessment/Plan Current Medications Generic Name Dose Route Start Last Admin Trade Name Freq PRN Reason Stop Dose Admin Acetaminophen 650 mg 12/04/19 17:57 12/11/19 03:32 Tylenol - PO 650 mg Q6H PRN Administration Fever Or Pain Ascorbic Acid 500 mg 12/08/19 10:00 12/11/19 09:27 Vitamin C - PO 500 mg DAILY [facility] Administration Aspirin 81 mg 12/05/19 10:00 12/11/19 09:27 Asa - PO 81 mg DAILY [facility] Administration Atorvastatin Calcium 80 mg 12/04/19 22:00 12/10/19 22:00 Lipitor - PO Not Given HS [facility] Carvedilol 3.125 mg 12/04/19 22:00 12/10/19 21:51 Coreg - PO Not Given HS [facility] Fluticasone Propionate 2 spray 12/05/19 10:00 Flonase - NS DAILY PRN ALLERGIES Gabapentin 100 mg 12/05/19 10:00 12/11/19 09:27 Neurontin - PO 100 mg DAILY [facility] Administration Heparin Sodium (Porcine) 5,000 unit 12/04/19 22:00 12/11/19 14:41 Heparin - SQ 5,000 unit TID [facility] Administration Aztreonam 0.5 gm/ Dextrose 50 mls @ 100 mls/hr 12/05/19 06:00 12/11/19 14:41 IVPB 100 mls/hr TID [facility] Administration Protocol Insulin Aspart 1 vial 12/05/19 07:00 12/11/19 11:54 Novolog Vial Sliding Scale - SQ 6 units TIDAC [facility] Administration Protocol Insulin Detemir 4 units 12/05/19 07:00 12/11/19 06:14 Levemir Vial SQ 4 units AM [facility] Administration Lidocaine/Prilocaine 1 applic 12/06/19 14:09 12/10/19 08:15 Emla - TP 1 applic DAILY PRN Administration PAIN Linezolid 600 mg 12/10/19 11:15 12/11/19 09:28 Zyvox (Restricted To Id) - PO 600 mg BID [facility] Administration Loratadine 10 mg 12/04/19 22:00 12/10/19 21:52 Claritin - PO 10 mg HS [facility] Administration Melatonin 5 mg 12/04/19 18:15 12/05/19 21:52 Melatonin PO 5 mg HS PRN Administration INSOMNIA Multivit/Ca Carb/B Cmplx/FA/Prenat 1 tablet 12/08/19 10:00 12/11/19 09:27 Nephro-Ivon - PO 1 tablet DAILY [facility] Administration Pantoprazole Sodium 40 mg 12/05/19 10:00 12/11/19 09:28 Protonix - PO 40 mg DAILY [facility] Administration Ropinirole HCl 0.5 mg 12/04/19 22:45 12/10/19 21:51 Requip - PO 0.5 mg HS [facility] Administration Impression 1. ESRD 2. CHF 3. DM 4. HTN 5. hyperlipidemia 6. nephrotic range proteinuria 7. CAD 8. lower ext infection Plan - HD again tomorrow - cont wound care - possible transfer to tertiary [facility] for surgery - renal diet - cont epogen - plavix on hold for amputation - vascular follow up
[2019-12-11] MEDS: LORATADINE 10 MG TABLET PO SCH (21:18)
[2019-12-11] MEDS: CARVEDILOL 3.125 MG TABLET (FP) PO SCH (21:18)
[2019-12-11] MEDS: rOPINIRole HCL 0.25 MG TABLET PO SCH (21:18)
[2019-12-11] MEDS: ATORVASTATIN CA 80 MG TABLET (FP) PO SCH (21:19)
[2019-12-12] MEDS: ACETAMINOPHEN 325 MG TABLET (FP) PO PRN (00:41)
[2019-12-12] MEDS: AZTREONAM 0.5 GM in DEXTROSE 5%-WATER - 50 ML IVPB SCH ×2 (06:00→15:26)
[2019-12-12] MEDS: INSULIN (LEVEMIR) 100 UNITS/ML UNITS SQ SCH (06:02)
[2019-12-12] MEDS: INSULIN SLIDING SCALE (NOVOLOG) 1 VIAL SQ SCH ×2 (06:03→15:27)
[2019-12-12 07:42] LABS: BASO % 1.1 % (0-2.0); EOS % 4.6 % (0-4.5); HEMATOCRIT 32.3 % (32.4-45.2); HEMOGLOBIN 9.8 GM/dL (10.7-15.3); LYMPH % 18.7 % (8-40); MCH 32.7 pg (25.7-33.7); MCHC 30.3 g/dl (32.0-36.0); MEAN CELL VOLUME 107.8 fl (80-96); MEAN PLT VOLUME 9.2 fl (7.5-11.1); NEUT % 67.6 % (42.8-82.8); PLATELET COUNT 175 K/MM3 (134-434); RBC 2.99 M/mm3 (3.60-5.2); RDW 21.6 % (11.6-15.6); WHITE BLOOD COUNT 8.4 K/mm3 (4.0-10.0)
[2019-12-12 08:02] LABS: ALBUMIN 2.3 g/dl (3.4-5.0); BILIRUBIN,TOTAL 0.7 mg/dL (0.2-1); BLOOD UREA NITROGEN 28.6 mg/dL (7-18); CALCIUM 8.3 mg/dL (8.5-10.1); CREATININE 5.5 mg/dL (0.55-1.3); POTASSIUM 4.8 mmol/L (3.5-5.1); TOT PROT 5.6 g/dl (6.4-8.2)
--- NOTE | 2019-12-12 09:00 | PN ---
Progress Note (short form) - Note Progress Note: Vascular Surgery Pt needs left BKA. Pt with severe medical and cardiology issues. Will transfer to tertiary care center where pt has cardiac laborer/key man for support. I spoke to the pt and she agrees. Carlos Enrique Giraldo DO
[2019-12-12] MEDS: LINEZOLID 600 MG TABLET (RESTRICTED TO ID) PO SCH (09:33)
--- NOTE | 2019-12-12 09:51 | PN ---
Teaching Attending Note Name of Resident: Lupis Farrell ATTENDING PHYSICIAN STATEMENT I saw and evaluated the patient. I reviewed the resident's note and discussed the case with the resident. I agree with the resident's findings and plan as documented. SUBJECTIVE: pt seen and examined at bedside, will go for HD today OBJECTIVE: Last Vital Signs Temp Pulse Resp BP Pulse Ox 97.9 F 85 18 118/49 L 97 12/12/19 05:57 12/12/19 05:57 12/12/19 05:57 12/12/19 05:57 12/12/19 05:57 GENERAL: Awake, alert, and fully oriented, in no acute distress. ENT: ears examined no wax, normal TM LUNGS: fine rales bilaterally. No accessory muscle use. HEART: Regular rate and rhythm, normal S1 and S2 with 3/6 systolic murmur @ LSB, rub or gallop. ABDOMEN: Soft, nontender, not distended, normoactive bowel sounds, no guarding, no rebound, no masses. No hepatomegaly or splenomegaly. UPPER EXTREMITIES: rt AV graft LOWER EXTREMITIES: No peripheral edema, unable to feel dorsalis pedis bilaterally, posterior tibial +1 Rt, unable to feel on left, both legs warm, amputated rt 2nd toe SKIN: bilaterally dry gangrene on both feet CBCD WBC 8.4 K/mm3 (4.0-10.0) 12/12/19 07:01 RBC 2.99 M/mm3 (3.60-5.2) L 12/12/19 07:01 Hgb 9.8 GM/dL (10.7-15.3) L 12/12/19 07:01 Hct 32.3 % (32.4-45.2) L 12/12/19 07:01 MCV 107.8 fl (80-96) H 12/12/19 07:01 MCHC 30.3 g/dl (32.0-36.0) L 12/12/19 07:01 RDW 21.6 % (11.6-15.6) H 12/12/19 07:01 Plt Count 175 K/MM3 (134-434) 12/12/19 07:01 MPV 9.2 fl (7.5-11.1) 12/12/19 07:01 CMP Sodium 140 mmol/L (136-145) 12/12/19 07:01 Potassium 4.8 mmol/L (3.5-5.1) 12/12/19 07:01 Chloride 102 mmol/L (98-107) 12/12/19 07:01 Carbon Dioxide 25 mmol/L (21-32) 12/12/19 07:01 Anion Gap 13 MMOL/L (8-16) 12/12/19 07:01 BUN 28.6 mg/dL (7-18) H 12/12/19 07:01 Creatinine 5.5 mg/dL (0.55-1.3) H 12/12/19 07:01 Calcium 8.3 mg/dL (8.5-10.1) L 12/12/19 07:01 Total Bilirubin 0.7 mg/dL (0.2-1) 12/12/19 07:01 AST 18 U/L (15-37) 12/12/19 07:01 ALT 10 U/L (13-61) L 12/12/19 07:01 Alkaline Phosphatase 254 U/L (45-117) H 12/12/19 07:01 Total Protein 5.6 g/dl (6.4-8.2) L 12/12/19 07:01 Albumin 2.3 g/dl (3.4-5.0) L 12/12/19 07:01 Active Medications Acetaminophen (Tylenol -) 650 mg PO Q6H PRN PRN Reason: Fever Or Pain Last Admin: 12/12/19 00:41 Dose: 650 mg Documented by: Albumin Human (Albumin Human 25%) 12.5 gm IVPB Q30M [facility] Ascorbic Acid (Vitamin C -) 500 mg PO DAILY [facility] Last Admin: 12/11/19 09:27 Dose: 500 mg Documented by: Aspirin (Asa -) 81 mg PO DAILY [facility] Last Admin: 12/11/19 09:27 Dose: 81 mg Documented by: Atorvastatin Calcium (Lipitor -) 80 mg PO [facility] Last Admin: 12/11/19 21:19 Dose: Not Given Documented by: Carvedilol (Coreg -) 3.125 mg PO HS [facility] Last Admin: 12/11/19 21:18 Dose: 3.125 mg Documented by: Epoetin Gabriel (Procrit -) 14,000 unit SQ ONCE ONE Stop: 12/12/19 15:28 Fluticasone Propionate (Flonase -) 2 spray NS DAILY PRN PRN Reason: ALLERGIES Gabapentin (Neurontin -) 100 mg PO DAILY [facility] Last Admin: 12/11/19 09:27 Dose: 100 mg Documented by: Heparin Sodium (Porcine) (Heparin -) 1,000 unit IVPUSH ONCE ONE Stop: 12/12/19 15:28 Heparin Sodium (Porcine) (Heparin -) 500 unit IVPUSH Q1H [facility] Stop: 12/12/19 17:31 Aztreonam 0.5 gm/ Dextrose 50 mls @ 100 mls/hr IVPB TID [facility]; Protocol Last Admin: 12/12/19 06:00 Dose: 100 mls/hr Documented by: Sodium Chloride (Normal Saline -) 250 mls @ 3,000 mls/hr IV PRN PRN PRN Reason: Hypotension during Dialysis Stop: 12/12/19 15:28 Insulin Aspart (Novolog Vial Sliding Scale -) 1 vial SQ TIDAC [facility]; Protocol Last Admin: 12/12/19 06:03 Dose: 4 units Documented by: Insulin Detemir (Levemir Vial) 4 units SQ AM [facility] Last Admin: 12/12/19 06:02 Dose: 4 units Documented by: Lidocaine/Prilocaine (Emla -) 1 applic TP DAILY PRN PRN Reason: PAIN Last Admin: 12/10/19 08:15 Dose: 1 applic Documented by: Linezolid (Zyvox (Restricted To Id) -) 600 mg PO BID [facility] Last Admin: 12/11/19 21:18 Dose: 600 mg Documented by: Loratadine (Claritin -) 10 mg PO HS [facility] Last Admin: 12/11/19 21:18 Dose: 10 mg Documented by: Melatonin (Melatonin) 5 mg PO HS PRN PRN Reason: INSOMNIA Last Admin: 12/05/19 21:52 Dose: 5 mg Documented by: Multivit/Ca Carb/B Cmplx/FA/Prenat (Nephro-Ivon -) 1 tablet PO DAILY [facility] Last Admin: 12/11/19 09:27 Dose: 1 tablet Documented by: Pantoprazole Sodium (Protonix -) 40 mg PO DAILY [facility] Last Admin: 12/11/19 09:28 Dose: 40 mg Documented by: Ropinirole HCl (Requip -) 0.5 mg PO [facility] Last Admin: 12/11/19 21:18 Dose: 0.5 mg Documented by: ASSESSMENT AND PLAN: 59 YO lady with Mhx of HFrEF (13%), CAD, HTN, ESRD on HD, DM with Diabetic neuropathy, DM foot ulcer, presented to ED after noticing maggots in her feet # sepsis due to Diabetic foot ulcer, cellulitis and gangrene - wound culture grew multiple organisms, including VRE - c/w IV abx, ID consult appreciated - vascular consult appreciated - cardiology consult appreciated - for BKA - High risk patient for surgery # ESRD on HD # DM with Diabetic neuropathy # HFrEF, CAD, EF 13% on ICD # DVT prophylaxis, fall precautions. Plan: Will Transfer pt for higher level care facility for BKA due to general medical condition
--- NOTE | 2019-12-12 10:17 | PN ---
Progress Note, Physician History of Present Illness: stable no new issues - Current Medication List Current Medications: Active Medications Acetaminophen (Tylenol -) 650 mg PO Q6H PRN PRN Reason: Fever Or Pain Last Admin: 12/12/19 00:41 Dose: 650 mg Documented by: Albumin Human (Albumin Human 25%) 12.5 gm IVPB Q30M [facility] Ascorbic Acid (Vitamin C -) 500 mg PO DAILY [facility] Last Admin: 12/11/19 09:27 Dose: 500 mg Documented by: Aspirin (Asa -) 81 mg PO DAILY [facility] Last Admin: 12/11/19 09:27 Dose: 81 mg Documented by: Atorvastatin Calcium (Lipitor -) 80 mg PO HS [facility] Last Admin: 12/11/19 21:19 Dose: Not Given Documented by: Carvedilol (Coreg -) 3.125 mg PO HS [facility] Last Admin: 12/11/19 21:18 Dose: 3.125 mg Documented by: Epoetin Gabriel (Procrit -) 14,000 unit SQ ONCE ONE Stop: 12/12/19 15:28 Fluticasone Propionate (Flonase -) 2 spray NS DAILY PRN PRN Reason: ALLERGIES Gabapentin (Neurontin -) 100 mg PO DAILY [facility] Last Admin: 12/11/19 09:27 Dose: 100 mg Documented by: Heparin Sodium (Porcine) (Heparin -) 1,000 unit IVPUSH ONCE ONE Stop: 12/12/19 15:28 Heparin Sodium (Porcine) (Heparin -) 500 unit IVPUSH Q1H [facility] Stop: 12/12/19 17:31 Aztreonam 0.5 gm/ Dextrose 50 mls @ 100 mls/hr IVPB TID [facility]; Protocol Last Admin: 12/12/19 06:00 Dose: 100 mls/hr Documented by: Sodium Chloride (Normal Saline -) 250 mls @ 3,000 mls/hr IV PRN PRN PRN Reason: Hypotension during Dialysis Stop: 12/12/19 15:28 Insulin Aspart (Novolog Vial Sliding Scale -) 1 vial SQ TIDAC [facility]; Protocol Last Admin: 12/12/19 06:03 Dose: 4 units Documented by: Insulin Detemir (Levemir Vial) 4 units SQ AM [facility] Last Admin: 12/12/19 06:02 Dose: 4 units Documented by: Lidocaine/Prilocaine (Emla -) 1 applic TP DAILY PRN PRN Reason: PAIN Last Admin: 12/10/19 08:15 Dose: 1 applic Documented by: Linezolid (Zyvox (Restricted To Id) -) 600 mg PO BID [facility] Last Admin: 12/11/19 21:18 Dose: 600 mg Documented by: Loratadine (Claritin -) 10 mg PO HS [facility] Last Admin: 12/11/19 21:18 Dose: 10 mg Documented by: Melatonin (Melatonin) 5 mg PO HS PRN PRN Reason: INSOMNIA Last Admin: 12/05/19 21:52 Dose: 5 mg Documented by: Multivit/Ca Carb/B Cmplx/FA/Prenat (Nephro-Ivon -) 1 tablet PO DAILY [facility] Last Admin: 12/11/19 09:27 Dose: 1 tablet Documented by: Pantoprazole Sodium (Protonix -) 40 mg PO DAILY [facility] Last Admin: 12/11/19 09:28 Dose: 40 mg Documented by: Ropinirole HCl (Requip -) 0.5 mg PO HS [facility] Last Admin: 12/11/19 21:18 Dose: 0.5 mg Documented by: - Objective Vital Signs: Vital Signs Temperature 97.9 F 12/12/19 05:57 Pulse Rate 85 12/12/19 05:57 Respiratory Rate 18 12/12/19 05:57 Blood Pressure 118/49 L 12/12/19 05:57 O2 Sat by Pulse Oximetry (%) 97 12/12/19 05:57 Constitutional: Yes: No Distress, Calm Cardiovascular: Yes: S1, S2 Respiratory: Yes: Regular, CTA Bilaterally Gastrointestinal: Yes: Normal Bowel Sounds, Soft Musculoskeletal: Yes: WNL Extremities: Yes: Other Neurological: Yes: Alert, Oriented Psychiatric: Yes: Alert, Oriented Labs: CBC, BMP 12/12/19 07:01 12/12/19 07:01 INR, PTT INR 1.54 (0.83-1.09) H 12/11/19 06:40 Assessment/Plan 59 yo F with PMH of ESRD (M/W/F), DM, HTN, CAD( S/P CABG), HFrEF( S/P ICD), PVD (S/P right metatarsal amputation) presents to ED for worsening L foot infection. cellulitis gangrene of the foot dm htn hferp esrd plan abx wound care rest as per the team
--- NOTE | 2019-12-12 10:58 | DS ---
Physical Exam: SUBJECTIVE: Patient seen and examined. No acute events overnight. Patient reports feeling well and has no complaints. OBJECTIVE: Vital Signs Temperature 97.9 F 12/12/19 05:57 Pulse Rate 85 12/12/19 05:57 Respiratory Rate 18 12/12/19 05:57 Blood Pressure 118/49 L 12/12/19 05:57 O2 Sat by Pulse Oximetry (%) 97 12/12/19 05:57 PHYSICAL EXAM GENERAL: The patient is awake, alert, and fully oriented, in no acute distress. NECK: Trachea midline, full range of motion, supple. LUNGS: Breath sounds equal, clear to auscultation bilaterally HEART: Regular rate and rhythm, S1, S2 ABDOMEN: Soft, nontender, nondistended, normoactive bowel sounds EXTREMITIES: no palpable pedal pulses bilaterally; RLE: 2nd digit amputated with ulceration but no erythema, right heel with diffuse eschar. LLE: all digits with ulcerations/eschar, extending to dorsum of left foot NEUROLOGICAL: Cranial nerves II through XII grossly intact. Normal speech PSYCH: Normal mood, normal affect. SKIN: Warm, dry, normal t[place]. LABS Laboratory Results - last 24 hr 12/11/19 12/11/19 12/11/19 11:41 16:20 21:17 WBC RBC Hgb Hct MCV MCH MCHC RDW Plt Count MPV Absolute Neuts (auto) Neutrophils % Lymphocytes % Monocytes % Eosinophils % Basophils % Nucleated RBC % Sodium Potassium Chloride Carbon Dioxide Anion Gap BUN Creatinine Est GFR (CKD-EPI)AfAm Est GFR (CKD-EPI)NonAf POC Glucometer 237 148 183 Random Glucose Calcium Total Bilirubin AST ALT Alkaline Phosphatase Total Protein Albumin 12/12/19 12/12/19 12/12/19 05:52 07:01 07:01 WBC 8.4 RBC 2.99 L Hgb 9.8 L Hct 32.3 L MCV 107.8 H MCH 32.7 MCHC 30.3 L RDW 21.6 H Plt Count 175 MPV 9.2 Absolute Neuts (auto) 5.7 Neutrophils % 67.6 Lymphocytes % 18.7 D Monocytes % 8.0 Eosinophils % 4.6 H Basophils % 1.1 Nucleated RBC % 0 Sodium 140 Potassium 4.8 Chloride 102 Carbon Dioxide 25 Anion Gap 13 BUN 28.6 H Creatinine 5.5 H Est GFR (CKD-EPI)AfAm 9.09 Est GFR (CKD-EPI)NonAf 7.84 POC Glucometer 228 Random Glucose 204 H Calcium 8.3 L Total Bilirubin 0.7 AST 18 ALT 10 L Alkaline Phosphatase 254 H Total Protein 5.6 L Albumin 2.3 L HOSPITAL COURSE: Date of Admission:12/04/19 Date of Discharge: 12/12/19 Patient is a 59 year old female with past medical history of HTN, PAD, CAD(s/p CABG), HFrEF(s/p ICD), ESRD (MWF), DM, right second toe amputation and chronic wound drainage on her left foot since early May, presented to the ED on 12/03 with worsening cellulitis of the foot with the presence of maggots. She had been receiving routine wound care up until early November when she had an AV graft placement done in the right arm. Wound culture polymicrobial with Klebsiella, staph, VRE faecium. ID, Podiatry and vascular surgery consulted. Patient was started on IV Aztreonam due to penicillin allergy, as well as IV Linezolid. CTA with LE runoff showed patent L deep femoral artery, with L superfical artery heavily calcified. L BKA was recommended by vascular, however, due to complex medical and cardiac issues, it was recommended that patient be transferred to a tertiary care facility for higher level of care. Patient agreeable for transfer to [facility]. Minutes to complete discharge: 38 Discharge Summary Problems reviewed: Yes Reason For Visit: WOUND OF LEFT FOOT,GANGRENE,SEPSIS Current Active Problems Cellulitis (Acute) Diabetic foot ulcer (Acute) ESRD (end stage renal disease) (Acute) Lymphangitis (Acute) PAD (peripheral artery disease) (Acute) Condition: Stable - Instructions Disposition: TRANSFER ACUTE CARE/OTHER HOSP - Home Medications Comprehensive Discharge Medication List: Ambulatory Orders Fluticasone Prop 0.05% Nasal [Flonase -] 1 - 2 spray NS DAILY 02/03/19 Atorvastatin Calcium 80 mg PO HS 06/09/19 Melatonin 5 mg PO PRN 06/15/19 Clopidogrel Bisulfate [Plavix] 75 mg PO DAILY #60 tablet 07/07/19 Carvedilol [Coreg -] 3.125 mg PO HS 07/26/19 Aspirin 81 mg PO DAILY 10/07/19 Cetirizine HCl [Zyrtec -] 10 mg PO HS 10/07/19 Pantoprazole Sodium 40 mg PO DAILY 10/07/19 Ropinirole HCl 0.5 mg PO HS 10/07/19 Insulin Detemir [Levemir Flextouch] 8 unit SQ DAILY #2 insuln.pen 10/09/19 Insulin Sliding Scale [Novolog Vial Sliding Scale -] 1 units SQ TIDAC #2 pen 10/09/19 This patient is new to me today: No Emergency Visit: Yes ED Registration Date: 12/04/19 Care time: The patient presented to the Emergency Department on the above date and was hospitalized for further evaluation of their emergent condition. Critical Care patient: No - Discharge Referral Referred to [id number] No ATTENDING PHYSICIAN STATEMENT I saw and evaluated the patient. I reviewed the resident's note and discussed the case with the resident. I agree with the resident's findings and plan as documented. SUBJECTIVE: OBJECTIVE: ASSESSMENT AND PLAN:
--- NOTE | 2019-12-12 11:14 | PN ---
Progress Note (short form) - Note Progress Note: cc: foot gangrene s: no chest pain, palps, dizziness, dyspnea. Current Medications Generic Name Dose Route Start Last Admin Trade Name Freq PRN Reason Stop Dose Admin Acetaminophen 650 mg 12/04/19 17:57 12/12/19 00:41 Tylenol - PO 650 mg Q6H PRN Administration Fever Or Pain Albumin Human 12.5 gm 12/12/19 15:30 Albumin Human 25% IVPB Q30M DEANNA Ascorbic Acid 500 mg 12/08/19 10:00 12/11/19 09:27 Vitamin C - PO 500 mg DAILY DEANNA Administration Aspirin 81 mg 12/05/19 10:00 12/11/19 09:27 Asa - PO 81 mg DAILY DEANNA Administration Atorvastatin Calcium 80 mg 12/04/19 22:00 12/11/19 21:19 Lipitor - PO Not Given HS DEANNA Carvedilol 3.125 mg 12/04/19 22:00 12/11/19 21:18 Coreg - PO 3.125 mg HS DEANNA Administration Epoetin Gabriel 14,000 unit 12/12/19 15:27 Procrit - SQ 12/12/19 15:28 ONCE ONE Fluticasone Propionate 2 spray 12/05/19 10:00 Flonase - NS DAILY PRN ALLERGIES Gabapentin 100 mg 12/05/19 10:00 12/11/19 09:27 Neurontin - PO 100 mg DAILY DEANNA Administration Heparin Sodium (Porcine) 1,000 unit 12/12/19 15:27 Heparin - IVPUSH 12/12/19 15:28 ONCE ONE Heparin Sodium (Porcine) 500 unit 12/12/19 15:30 Heparin - IVPUSH 12/12/19 17:31 Q1H [facility] Aztreonam 0.5 gm/ Dextrose 50 mls @ 100 mls/hr 12/05/19 06:00 12/12/19 06:00 IVPB 100 mls/hr TID DEANNA Administration Protocol Sodium Chloride 250 mls @ 3,000 mls/hr 12/11/19 15:27 Normal Saline - IV 12/12/19 15:28 PRN PRN Hypotension during Dialysis Insulin Aspart 1 vial 12/05/19 07:00 12/12/19 06:03 Novolog Vial Sliding Scale - SQ 4 units TIDAC DEANNA Administration Protocol Insulin Detemir 4 units 12/05/19 07:00 12/12/19 06:02 Levemir Vial SQ 4 units AM DEANNA Administration Lidocaine/Prilocaine 1 applic 12/06/19 14:09 12/10/19 08:15 Emla - TP 1 applic DAILY PRN Administration PAIN Linezolid 600 mg 12/10/19 11:15 12/11/19 21:18 Zyvox (Restricted To Id) - PO 600 mg BID DEANNA Administration Loratadine 10 mg 12/04/19 22:00 12/11/19 21:18 Claritin - PO 10 mg HS DEANNA Administration Melatonin 5 mg 12/04/19 18:15 12/05/19 21:52 Melatonin PO 5 mg HS PRN Administration INSOMNIA Multivit/Ca Carb/B Cmplx/FA/Prenat 1 tablet 12/08/19 10:00 12/11/19 09:27 Nephro-Ivon - PO 1 tablet DAILY DEANNA Administration Pantoprazole Sodium 40 mg 12/05/19 10:00 12/11/19 09:28 Protonix - PO 40 mg DAILY DEANNA Administration Ropinirole HCl 0.5 mg 12/04/19 22:45 12/11/19 21:18 Requip - PO 0.5 mg HS DEANNA Administration Vital Signs Period Temp Pulse Resp BP Sys/Horowitz Pulse Ox Last 24 Hr 97.8 F-98.2 F 85-95 16-18 116-118/49-58 97-99 Constitutional: Yes: No Distress, Calm Eyes: Yes: Conjunctiva Clear Cardiovascular: Yes: Regular Rate and Rhythm Respiratory: Yes: CTA Bilaterally nl eff Gastrointestinal: Yes: Soft (nt) Edema: No Neurological: Yes: Alert, Oriented no jaundice, diaphoresis not agitated Laboratory Last Values WBC 8.4 K/mm3 (4.0-10.0) 12/12/19 07:01 RBC 2.99 M/mm3 (3.60-5.2) L 12/12/19 07:01 Hgb 9.8 GM/dL (10.7-15.3) L 12/12/19 07:01 Hct 32.3 % (32.4-45.2) L 12/12/19 07:01 MCV 107.8 fl (80-96) H 12/12/19 07:01 MCH 32.7 pg (25.7-33.7) 12/12/19 07:01 MCHC 30.3 g/dl (32.0-36.0) L 12/12/19 07:01 RDW 21.6 % (11.6-15.6) H 12/12/19 07:01 Plt Count 175 K/MM3 (134-434) 12/12/19 07:01 MPV 9.2 fl (7.5-11.1) 12/12/19 07:01 Absolute Neuts (auto) 5.7 K/mm3 (1.5-8.0) 12/12/19 07:01 Neutrophils % 67.6 % (42.8-82.8) 12/12/19 07:01 Lymphocytes % 18.7 % (8-40) D 12/12/19 07:01 Monocytes % 8.0 % (3.8-10.2) 12/12/19 07:01 Eosinophils % 4.6 % (0-4.5) H 12/12/19 07:01 Basophils % 1.1 % (0-2.0) 12/12/19 07:01 Nucleated RBC % 0 % (0-0) 12/12/19 07:01 Hypochromia 0 12/04/19 13:55 Platelet Estimate Adequate 12/09/19 10:50 Polychromasia 1+ 12/04/19 13:55 Poikilocytosis 0 12/04/19 13:55 Anisocytosis 2+ 12/09/19 10:50 Microcytosis 1+ 12/04/19 13:55 Macrocytosis 1+ 12/04/19 13:55 Ovalocytes Few 12/09/19 10:50 PT with INR 18.20 SEC (9.7-13.0) H 12/11/19 06:40 INR 1.54 (0.83-1.09) H 12/11/19 06:40 VBG pH 7.293 (7.310-7.410) L 12/04/19 13:55 POC VBG pCO2 50.9 mmHg (38-52) 12/04/19 13:55 POC VBG pO2 16.7 mmHg (28-48) L 12/04/19 13:55 VBG HCO3 24.1 mmol/L (23-29) 12/04/19 13:55 VBG O2 Sat (Tabatha) 19.7 % (70-80) L 12/04/19 13:55 VBG Base Excess -2.9 mmol/L (-2-2) L 12/04/19 13:55 Sodium 140 mmol/L (136-145) 12/12/19 07:01 Potassium 4.8 mmol/L (3.5-5.1) 12/12/19 07:01 Chloride 102 mmol/L (98-107) 12/12/19 07:01 Carbon Dioxide 25 mmol/L (21-32) 12/12/19 07:01 Anion Gap 13 MMOL/L (8-16) 12/12/19 07:01 BUN 28.6 mg/dL (7-18) H 12/12/19 07:01 Creatinine 5.5 mg/dL (0.55-1.3) H 12/12/19 07:01 Est GFR (CKD-EPI)AfAm 9.09 12/12/19 07:01 Est GFR (CKD-EPI)NonAf 7.84 12/12/19 07:01 POC Glucometer 228 UNITS (80-120) 12/12/19 05:52 Random Glucose 204 mg/dL (74-106) H 12/12/19 07:01 Lactic Acid 1.9 mmol/L (0.4-2.0) 12/04/19 13:55 Calcium 8.3 mg/dL (8.5-10.1) L 12/12/19 07:01 Phosphorus 5.3 mg/dL (2.5-4.9) H 12/05/19 06:20 Magnesium 1.9 mg/dL (1.8-2.4) 12/08/19 07:45 Total Bilirubin 0.7 mg/dL (0.2-1) 12/12/19 07:01 AST 18 U/L (15-37) 12/12/19 07:01 ALT 10 U/L (13-61) L 12/12/19 07:01 Alkaline Phosphatase 254 U/L (45-117) H 12/12/19 07:01 B-Natriuretic Peptide > 742784.0 pg/ml (5-125) H 12/04/19 13:55 Total Protein 5.6 g/dl (6.4-8.2) L 12/12/19 07:01 Albumin 2.3 g/dl (3.4-5.0) L 12/12/19 07:01 Vitamin B12 1580 pg/ml (193-986) H 12/06/19 06:40 Serum Folate 38 ng/mL (3.1-17.5) H 12/06/19 06:40 Beta-Hydroxybutyrate 0.9 mg/dL (0.2-2.8) 12/04/19 13:55 Random Vancomycin 20.3 ug/ml (5-26) 12/05/19 06:20 COVID-19 (RICHARD) Not detected (Not Detected) 12/04/19 13:55 Hep Bs Antigen Negative (Negative) 12/05/19 14:00 Hep C Ab Diagnostic <0.1 s/co ratio (0.0-0.9) 12/05/19 14:00 Blood Type O POSITIVE 12/05/19 06:20 Antibody Screen Negative 12/05/19 06:20 EKG: sinus, nl intervals, lvh with repol, similar to prior echo 03/2019 tds, mod to sev MR, mild to mod ao sclerosis, severe TR, severely reduced LV function, RVSP >60 mmHg, LV/RV not well visualized, mild to mod AR mibi 03/2019 mod size inferolateral infarct with mild марина-infarct ischemia, global hypokinesis, EF 13% cxr: no chf a/p: 59F h/o CAD s/p CABG, chronic systolic HF s/p ICD, DM, ESRD on HD chronic L foot wound p/w worsening foot wound. chronic systolic HF, s/p ICD: - volume management per renal with HD - continue carvedilol, additional chf meds limited by low BP in the past CAD s/p CABG: - stable, no angina, no signs acs - cont statin, asa, bb - recent mibi w/o significant ischemia DM: - manage per primary pad, non healing wound, gangrene: -bka planned -no absolute cardiac contraindications to bka; periop management of plavix as per Vascular surgery
[2019-12-12] MEDS: ALBUMIN HUMAN 25% 12.5 GM/50 ML VIAL IVPB SCH ×4 (11:15→12:45)
[2019-12-12 11:39] VITALS: TEMP 97.5
[2019-12-12] MEDS ORDERED: SODIUM CHLORIDE 250 ML IV PRN (11:48)
[2019-12-12] MEDS: HEPARIN NA (PORCINE) 5,000 UNITS/ML 1ML VIAL IVPUSH SCH ×3 (12:00→14:00)
[2019-12-12] MEDS ORDERED: HEPARIN NA (PORCINE) 5,000 UNITS/ML 1ML VIAL IVPUSH ONE (12:00)
[2019-12-12] MEDS ORDERED: EPOETIN ALFA 10,000 UNIT/1 ML VIAL SQ ONE (12:00)
[2019-12-12 14:45] VITALS: BP 131/87; PULSE 85
[2019-12-12] MEDS ORDERED: DEXTROSE 5%-WATER - 50 ML IVPB ONE (15:19)
[2019-12-12] MEDS ORDERED: AZTREONAM 1 GM VIAL (RESTRICTED TO ID) ONE (15:19)
[2019-12-12] MEDS: PANTOPRAZOLE 40 MG TABLET PO SCH (15:34)
[2019-12-12] MEDS: GABAPENTIN 100 MG CAPSULE PO SCH (15:34)
[2019-12-12] MEDS: ASPIRIN 81 MG CHEWABLE TABLETS PO SCH (15:34)
[2019-12-12] MEDS: VITAMIN B COMP W-C 1 EA TABLET (NEPHRO-VITE) PO SCH (15:34)
[2019-12-12] MEDS: ASCORBIC ACID 500 MG TABLET (FP) PO SCH (15:34)
[2019-12-12 16:17] VITALS: BMI 25.8
--- NOTE | 2019-12-12 16:58 | PN ---
Progress Note, Physician History of Present Illness: Pt seen and examined at bedside. She is awake and alert. She is tolerating HD. - Current Medication List Current Medications: Active Medications Acetaminophen (Tylenol -) 650 mg PO Q6H PRN PRN Reason: Fever Or Pain Last Admin: 12/12/19 00:41 Dose: 650 mg Documented by: Ascorbic Acid (Vitamin C -) 500 mg PO DAILY [facility] Last Admin: 12/12/19 15:34 Dose: 500 mg Documented by: Aspirin (Asa -) 81 mg PO DAILY [facility] Last Admin: 12/12/19 15:34 Dose: 81 mg Documented by: Atorvastatin Calcium (Lipitor -) 80 mg PO HS [facility] Last Admin: 12/11/19 21:19 Dose: Not Given Documented by: Carvedilol (Coreg -) 3.125 mg PO HS [facility] Last Admin: 12/11/19 21:18 Dose: 3.125 mg Documented by: Fluticasone Propionate (Flonase -) 2 spray NS DAILY PRN PRN Reason: ALLERGIES Gabapentin (Neurontin -) 100 mg PO DAILY [facility] Last Admin: 12/12/19 15:34 Dose: 100 mg Documented by: Aztreonam 0.5 gm/ Dextrose 50 mls @ 100 mls/hr IVPB TID [facility]; Protocol Last Admin: 12/12/19 15:26 Dose: 100 mls/hr Documented by: Insulin Aspart (Novolog Vial Sliding Scale -) 1 vial SQ TIDAC [facility]; Protocol Last Admin: 12/12/19 15:27 Dose: Not Given Documented by: Insulin Detemir (Levemir Vial) 4 units SQ AM [facility] Last Admin: 12/12/19 06:02 Dose: 4 units Documented by: Lidocaine/Prilocaine (Emla -) 1 applic TP DAILY PRN PRN Reason: PAIN Last Admin: 12/10/19 08:15 Dose: 1 applic Documented by: Linezolid (Zyvox (Restricted To Id) -) 600 mg PO BID [facility] Last Admin: 12/12/19 09:33 Dose: Not Given Documented by: Loratadine (Claritin -) 10 mg PO HS [facility] Last Admin: 12/11/19 21:18 Dose: 10 mg Documented by: Melatonin (Melatonin) 5 mg PO HS PRN PRN Reason: INSOMNIA Last Admin: 12/05/19 21:52 Dose: 5 mg Documented by: Multivit/Ca Carb/B Cmplx/FA/Prenat (Nephro-Ivon -) 1 tablet PO DAILY [facility] Last Admin: 12/12/19 15:34 Dose: 1 tablet Documented by: Pantoprazole Sodium (Protonix -) 40 mg PO DAILY [facility] Last Admin: 12/12/19 15:34 Dose: 40 mg Documented by: Ropinirole HCl (Requip -) 0.5 mg PO HS [facility] Last Admin: 12/11/19 21:18 Dose: 0.5 mg Documented by: - Objective Vital Signs: Vital Signs Temperature 97.5 F L 12/12/19 11:10 Pulse Rate 85 12/12/19 14:44 Respiratory Rate 18 12/12/19 14:44 Blood Pressure 131/87 12/12/19 14:44 O2 Sat by Pulse Oximetry (%) 97 12/12/19 10:00 Constitutional: Yes: Calm Eyes: Yes: Conjunctiva Clear HENT: Yes: Atraumatic Neck: Yes: Supple Cardiovascular: Yes: S1, S2 Respiratory: Yes: CTA Bilaterally Gastrointestinal: Yes: Soft Genitourinary: Yes: WNL Edema: No Neurological: Yes: Oriented Psychiatric: Yes: Oriented Labs: CBC, BMP 12/12/19 07:01 12/12/19 07:01 INR, PTT INR 1.54 (0.83-1.09) H 12/11/19 06:40 Problem List - Problems (1) ESRD (end stage renal disease) Code(s): N18.6 - END STAGE RENAL DISEASE (2) Cellulitis Code(s): L03.90 - CELLULITIS, UNSPECIFIED Qualifiers: Site of cellulitis: extremity Site of cellulitis of extremity: lower ext remity Laterality: unspecified laterality Qualified Code(s): L03.119 - Cellulitis of unspecified part of limb Assessment/Plan Current Medications Generic Name Dose Route Start Last Admin Trade Name Freq PRN Reason Stop Dose Admin Acetaminophen 650 mg 12/04/19 17:57 12/12/19 00:41 Tylenol - PO 650 mg Q6H PRN Administration Fever Or Pain Ascorbic Acid 500 mg 12/08/19 10:00 12/12/19 15:34 Vitamin C - PO 500 mg DAILY [facility] Administration Aspirin 81 mg 12/05/19 10:00 12/12/19 15:34 Asa - PO 81 mg DAILY DEANNA Administration Atorvastatin Calcium 80 mg 12/04/19 22:00 12/11/19 21:19 Lipitor - PO Not Given HS DEANNA Carvedilol 3.125 mg 12/04/19 22:00 12/11/19 21:18 Coreg - PO 3.125 mg HS DEANNA Administration Fluticasone Propionate 2 spray 12/05/19 10:00 Flonase - NS DAILY PRN ALLERGIES Gabapentin 100 mg 12/05/19 10:00 12/12/19 15:34 Neurontin - PO 100 mg DAILY DEANNA Administration Aztreonam 0.5 gm/ Dextrose 50 mls @ 100 mls/hr 12/05/19 06:00 12/12/19 15:26 IVPB 100 mls/hr TID DEANNA Administration Protocol Insulin Aspart 1 vial 12/05/19 07:00 12/12/19 15:27 Novolog Vial Sliding Scale - SQ Not Given TIDAC [facility] Protocol Insulin Detemir 4 units 12/05/19 07:00 12/12/19 06:02 Levemir Vial SQ 4 units AM DEANNA Administration Lidocaine/Prilocaine 1 applic 12/06/19 14:09 12/10/19 08:15 Emla - TP 1 applic DAILY PRN Administration PAIN Linezolid 600 mg 12/10/19 11:15 12/12/19 09:33 Zyvox (Restricted To Id) - PO Not Given BID DEANNA Loratadine 10 mg 12/04/19 22:00 12/11/19 21:18 Claritin - PO 10 mg HS DEANNA Administration Melatonin 5 mg 12/04/19 18:15 12/05/19 21:52 Melatonin PO 5 mg HS PRN Administration INSOMNIA Multivit/Ca Carb/B Cmplx/FA/Prenat 1 tablet 12/08/19 10:00 12/12/19 15:34 Nephro-Ivon - PO 1 tablet DAILY DEANNA Administration Pantoprazole Sodium 40 mg 12/05/19 10:00 12/12/19 15:34 Protonix - PO 40 mg DAILY DEANNA Administration Ropinirole HCl 0.5 mg 12/04/19 22:45 12/11/19 21:18 Requip - PO 0.5 mg HS DEANNA Administration Impression 1. ESRD 2. CHF 3. DM 4. HTN 5. hyperlipidemia 6. nephrotic range proteinuria 7. CAD 8. lower ext infection Plan - HD today - pt pending transfer to tertiary care center - volume status improved - renal diet - cont epogen - plavix on hold for amputation - vascular follow up
== END 2019-12-12 18:02 | disposition short-term general hospital (02) | DRG 871 ==
LOC: JER 13:15 → JERBED 15:05 → J6WEST-2 12-05 10:28 → J6S 12-12 11:27
PROVIDERS: ADMIT Internal Medicine; ATTEND Student in an Organized Health Care Education/Training Program
PROC: 5A1D70Z Performance of Urinary Filtration, Intermittent, Less than 6 Hours Per Day (ICD-10-PCS; principal; 2019-12-12)
PROC: 5A1D70Z Performance of Urinary Filtration, Intermittent, Less than 6 Hours Per Day (ICD-10-PCS; 2019-12-12)
PROC: 5A1D70Z Performance of Urinary Filtration, Intermittent, Less than 6 Hours Per Day (ICD-10-PCS; 2019-12-12)
PROC: 5A1D70Z Performance of Urinary Filtration, Intermittent, Less than 6 Hours Per Day (ICD-10-PCS; 2019-12-12)
PROC: 5A1D70Z Performance of Urinary Filtration, Intermittent, Less than 6 Hours Per Day (ICD-10-PCS; 2019-12-12)
DX: A41.81 Sepsis due to Enterococcus (principal); N18.6 End stage renal disease; I13.2 Hypertensive heart and chronic kidney disease with heart failure and with stage 5 chronic kidney disease, or end stage renal disease; I50.22 Chronic systolic (congestive) heart failure; L03.116 Cellulitis of left lower limb; I96 Gangrene, not elsewhere classified; L97.518 Non-pressure chronic ulcer of other part of right foot with other specified severity; I25.10 Atherosclerotic heart disease of native coronary artery without angina pectoris; E11.51 Type 2 diabetes mellitus with diabetic peripheral angiopathy without gangrene; E11.22 Type 2 diabetes mellitus with diabetic chronic kidney disease; B87.1 Wound myiasis; E11.40 Type 2 diabetes mellitus with diabetic neuropathy, unspecified; G25.81 Restless legs syndrome; G47.00 Insomnia, unspecified; E11.621 Type 2 diabetes mellitus with foot ulcer; E11.65 Type 2 diabetes mellitus with hyperglycemia; Z89.512 Acquired absence of left leg below knee; Z99.2 Dependence on renal dialysis; Z95.1 Presence of aortocoronary bypass graft; Z89.421 Acquired absence of other right toe(s)
CPT/HCPCS: 36415; 71046-TC-FY; 73630-TC-LT; 73630-TC-RT-FY; 75635-TC; 80048; 80053; 82010; 82607; 82746; 82803; 82962; 83605; 83735; 83880; 84100; 85025; 85027; 85610; 86803; 86850; 86900; 86901; 87040; 87070; 87077; 87186; 87205; 87340; 93005; 93010; 99285-25; G0480; J0131; J0885; J1644; P9047; Q5106; Q9967; U0003